=== PATIENT | female | born 1945 | race Caucasian/White ===

== ENCOUNTER 2020-04-18 08:13 | Outpatient (CLI) | payer MEDICARE, MEDICAID, SELFPAY ==
--- NOTE | 2020-04-18 08:27 | NMCV_ITS ---
NM blayne perf SPECT r/s* [id number] Maria Isabel Ho Age: 75 Gender: F : 1945 Exam Date: 04/18/2020 09:25 Ordering Phys: Pedro Venegas PA-C XX Technologist: ROMEO Morse Exam Location: [facility] Indications: PVD, CAD STRESS TEST Please see separate stress test report in [facility] for full findings IMAGE PROTOCOL Rest/Stress 1 Lexiscan Day Radiopharmaceutical Dose (mCi) Administration Site Administered by Rest: Tc-99m 10.8 IV ROMEO Murillo Sestamibi Stress:Tc-99m 32.9 IV ROMEO Morse Sestamiheather Rest: 18-Apr-2020 60 Discovery 630 Stress: 18-Apr-2020 30 Discovery 630 0.4mg Lexiscan. Images obtained in supine and prone position. SPECT RESULTS Technical Quality: Excellent Raw Data Analysis: Normal Image Corrections: No attenuation or motion correction applied Summed Stress Score: 0 Summed Rest Score: 0 Summed Difference Score: 0 PERFUSION FINDINGS SPECT images demonstrate homogeneous tracer distribution throughout the myocardium. FUNCTIONAL RESULTS (calculated via Gated SPECT) Stress Image LV EF (%): 89 Stress EDV (mL):38 TID: 0.82 Stress ESV (mL):4 FUNCTIONAL FINDINGS: The left ventricle is normal in size. Transient Ischemia Dilatation of 0.82. The left ventricular ejection fraction is hyperdynamic with a value of 89%. This is overestimated due to small left ventricle cavity size. There is hyperdynamic left ventricular wall thickening. No regional wall motion abnormality. IMPRESSIONS 1. Myocardial perfusion imaging is normal. 2. Overall left ventricular systolic function is normal without regional wall motion abnormalities. 3. The left ventricular ejection fraction is hyperdynamic with a value of 89%. 4. This study suggests a low likelihood of angiographically significant coronary artery disease. 5. No prior similar studies to compare. Raven Pacheco MD (Electronically Signed) Final Date: 18 April 2020 18:19 S
--- NOTE | 2020-04-18 08:27 | ECG_ITS ---
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 Interpretive Statements NAME OF STUDY: LEXISCAN SESTAMIBI STRESS TEST INDICATION: Chest Pain, r/o CAD, PAD PROCEDURE: At the baseline, the blood pressure was 228/90 mmHg, oxygen saturation 97% with a heart rate of 68 bpm. The electrocardiogram showed normal sinus rhythm, normal axis with nonspecific ST depression. The Lexiscan was infused over a period of 20 seconds. A total of 0.4 milligrams of Lexiscan was infused. The stress phase was continued for a total of 5 minutes. Heart rate at the end of the stress phase was 87 bpm, oxygen saturation 97% with a blood pressure of 217/93 mmHg. The EKG at the peak infusion revealed no significant ST-T wave changes. The study was terminated due to protocol completion. Sestamibi was injected 20 seconds after the Lexiscan infusion. Blood pressure at the end of the recovery phase was 225/102 mmHg, oxygen saturation 96% with a heart rate of 76 beats per minute. CONCLUSION: 1. No significant EKG changes with the LexiScan infusion. 2. No LexiScan induced chest pain or cardiac arrhythmia. 3. Baseline hypertension with normal blood pressure and heart rate response. 4. Sestamibi/sestamibi perfusion scan pending; see separate report. Electronically Signed On 04-18-2020 18:22:22 DRAGLINE OPERATOR by Raven Pacheco M.D. [id number]
[2020-04-18 08:39] VITALS: BMI 21.9
[2020-04-18] MEDS: ondansetron 2 mg/ML SDV 2 mL 4 MG IVP (10:23)
[2020-04-18 10:29] VITALS: BP 225/102; PULSE 77
== END 2020-04-18 08:14 | disposition home or self-care (01) ==
PROVIDERS: PCP Physician Assistant Medical; Visit Provider Physician Assistant Medical
DX: R07.9 Chest pain, unspecified (principal); I73.9 Peripheral vascular disease, unspecified
CPT/HCPCS: 78452; 93017; A9500; J2405

== ENCOUNTER 2020-05-06 15:11 | Emergency (ER) | payer MEDICARE, MEDICAID, SELFPAY ==
[2020-05-06] VITALS (14 sets, daily range): BP systolic 151–202; BP diastolic 76–100; PULSE 66–80; RESP 14–20; TEMP 36.4; O2SAT 93–97; BMI 22.3
--- NOTE | 2020-05-06 15:33 | XRR_ITS ---
PROCEDURE INFORMATION: Exam: XR Chest, 1 View Exam date and time: 05/06/2020 4:13 PM Age: 75 years old Clinical indication: Cough and dyspnea; Smoker's cough; Additional info: Dyspnea/cough TECHNIQUE: Imaging protocol: XR of the chest Views: 1 view. COMPARISON: No relevant prior studies available. FINDINGS: Lungs: Unremarkable. No consolidation. Pleural space: Unremarkable. No pleural effusion. No pneumothorax. Heart/Mediastinum: Unremarkable. No cardiomegaly. Bones/joints: Unremarkable. XR/XR chest 1V portable [id number] IMPRESSION: No acute findings.
--- NOTE | 2020-05-06 15:33 | XRR_ITS ---
PROCEDURE INFORMATION: Exam: XR Left Knee Exam date and time: 05/06/2020 4:13 PM Age: 75 years old Clinical indication: Pain; Knee; Left TECHNIQUE: Imaging protocol: XR Left knee. Views: 3 views. COMPARISON: No relevant prior studies available. FINDINGS: Bones/joints: There is osteopenia. No periosteal reaction. No osteomyelitis. No acute fracture or dislocation. No bony destructive changes. Soft tissues: No foreign body. Other findings: No gas in the soft tissues. XR/XR knee LT 3V* [id number] IMPRESSION: No acute bony abnormality.
--- NOTE | 2020-05-06 15:33 | CTR_ITS ---
PROCEDURE INFORMATION: Exam: CT Cervical Spine Without Contrast Exam date and time: 05/06/2020 4:13 PM Age: 75 years old Clinical indication: Injury or trauma; Fall; Blunt trauma; Additional info: Fall, head injury TECHNIQUE: Imaging protocol: Computed tomography images of the cervical spine without contrast. Radiation optimization: All CT scans at this facility use at least one of these dose optimization techniques: automated exposure control; mA and/or kV adjustment per patient size (includes targeted exams where dose is matched to clinical indication); or iterative reconstruction. COMPARISON: No relevant prior studies available. RADIATION DOSE METRICS: Total DLP (mGy-cm): 376.48 FINDINGS: Vertebrae: No acute fracture. Normal alignment. Degenerative change is identified in the spine. There is disc space narrowing and osteophyte formation especially at C5/6. Soft tissues: Unremarkable. Lungs: Lung apices are normal. CT/CT cervical spin wo con* [id number] IMPRESSION: There is no evidence for fracture or facet dislocation. Radiation Dose CTDIVOL = (mGy): DLP = 376.48 (mGy-cm)
--- NOTE | 2020-05-06 15:33 | CTR_ITS ---
PROCEDURE INFORMATION: Exam: CT Head Without Contrast Exam date and time: 05/06/2020 4:13 PM Age: 75 years old Clinical indication: Injury or trauma; Fall; Blunt trauma (contusions or hematomas); Additional info: Closed head injury TECHNIQUE: Imaging protocol: Computed tomography of the head without contrast. Radiation optimization: All CT scans at this facility use at least one of these dose optimization techniques: automated exposure control; mA and/or kV adjustment per patient size (includes targeted exams where dose is matched to clinical indication); or iterative reconstruction. COMPARISON: No relevant prior studies available. RADIATION DOSE METRICS: Total DLP (mGy-cm): 690.91 FINDINGS: Brain: Moderate white matter disease and volume loss are identified. There is no acute infarct or edema. No hemorrhage. Cerebral ventricles: No ventriculomegaly. Bones/joints: Unremarkable. No acute fracture. Paranasal sinuses: Visualized sinuses are unremarkable. No fluid levels. Mastoid air cells: Visualized mastoid air cells are well aerated. Soft tissues: Unremarkable. CT/CT head wo con* [id number] IMPRESSION: There are no acute concerning abnormalities. Radiation Dose CTDIVOL = (mGy): DLP = 690.91 (mGy-cm)
--- NOTE | 2020-05-06 15:45 | XRR_ITS ---
PROCEDURE INFORMATION: Exam: XR Nasal Bones, Minimum of 3 Views, Complete Exam date and time: 05/06/2020 4:13 PM Age: 75 years old Clinical indication: Injury or trauma; Fall; Blunt trauma (contusions or hematomas); Nose; Additional info: Fall/ecchymosis TECHNIQUE: Imaging protocol: XR of the nasal bones, minimum of 3 views. Complete exam. COMPARISON: No relevant prior studies available. FINDINGS: Sinuses: Well aerated. No opacification. Bones/joints: There is a comminuted nasal fracture. Soft tissues: Unremarkable. XR/XR nasal bones min 3V [id number] IMPRESSION: There is a comminuted nasal fracture. If there is desire for further evaluation, a CT scan could be performed.
--- NOTE | 2020-05-06 15:45 | ECG_ITS ---
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 Measurements Intervals [place] Rate: 67 P: 53 HI: 149 QRS: 46 QRSD: 72 T: 119 QT: 388 QTc: 412 Interpretive Statements SINUS RHYTHM ST DEVIATION AND MODERATE T-WAVE ABNORMALITY, CONSIDER LATERAL ISCHEMIA [-0.1+ mV T WAVE IN I/aVL/V5/V6] No previous ECG available for comparison Electronically Signed On 05-07-2020 9:18:11 APPRAISER by Gris Hughes M.D. [id number]
[2020-05-06 15:54] LABS: Basophils % 0.4 %; Eosinophils # 0.1 10^3/uL (0.0-0.8); Eosinophils % 1.6 %; Hematocrit 46.2 % (37.0-47.0); Lymphocytes # 0.7 10^3/uL (0.8-4.8); Lymphocytes % 8.6 %; Mean Corpuscular HGB Conc 32.5 g/dL (30.0-36.0); Mean Corpuscular Hemoglobin 30.2 pg (28.0-34.0); Mean Corpuscular Volume 93.1 fL (81-99); Mean Platelet Volume 11.8 fL (7.4-10.4); Monocytes # 0.5 10^3/uL (0.2-0.9); Monocytes % 6.3 %; Neutrophils % 82.6 %; Nucleated Red Blood Cells % 0 %; Platelet Count 203 10^3/cmm (130-400); Red Blood Count 4.96 10^6/uL (4.1-5.3); Red Cell Distribution Width 13.9 % (12.1-15.1); White Blood Count 7.9 10^3/uL (4.0-10.0)
[2020-05-06 16:00] LABS: Ketone (Acetest) Serum Negative (Negative)
[2020-05-06 16:09] LABS: Alanine Aminotransferase 13 U/L (0-33); Albumin Level 4.3 g/dL (3.5-5.2); Alkaline Phosphatase 109 IU/L (35-105); Anion Gap 15.3 (5-19); Aspartate Amino Transferase 18 U/L (0-32); Blood Urea Nitrogen 15 mg/dL (8-23); Calcium 9.1 mg/dL (8.5-10.5); Carbon Dioxide 23 mmol/L (22-29); Chloride 99 mmol/L (98-107); Globulin 3.4 g/dL (1.3-4.6); Glucose 113 mg/dL (65-115); Lipase 11 U/L (13-60); Osmolality Calculated 276 mOsm/kg (285-295); Potassium 5.3 mmol/L (3.5-5.1); Sodium 132 mmol/L (136-145); Total Bilirubin 0.4 mg/dL (0.15-1.2); Total Protein 7.7 g/dL (6.6-8.7)
--- NOTE | 2020-05-06 16:13 | W.ED.SYNCOPE ---
Documented by User: Adonis Harrison DO 05/06/20 18:29 HPI - Syncope General: Chief Complaint: Syncope Stated Complaint: FALL, L LEG INJURY Time Seen by Provider: 05/06/20 15:29 History of Present Illness: HPI narrative: 75-year-old female presents to the emergency room after a fall. Her daughter is with her. She states she has been falling quite a bit and actually. She is on anticoagulants. Although they cannot give me the name of the medicine that the Neurontin. She has frequent falls this been going on for a number of years. Today she was making her bed to sit upright and turned and then surgically had a syncopal episode passed out she hit her face she has some bruising and abrasions about the bridge of the nose bilateral ecchymosis on the lower eyelids. She denies any chest pain she is moderately confused now. No abdominal pain no recent fever sweats chills or flulike symptoms MD complaint: loss of consciousness and collapsed Onset (ago): hour(s) Prodromal symptoms: none Witnessed: Yes - by Bystander Associated symptoms: Reports headache(s), lightheadedness, nausea, vertigo and weakness; Deny abdominal pain, chest pain, fever(s) or short of breath History: previous syncopal episode Treatments prior to arrival: none Review of Systems Const: Denies: fever(s), chills, body aches, change in appetite, fatigue or malaise ENMT: Denies: throat pain, ear or mastoid pain, nasal discharge or nasal congestion Card: Reports: lightheadedness; Denies: chest pain Resp: Denies: dyspnea, productive cough or non-productive cough GI: Reports: nausea; Denies: abdominal pain : Denies: flank pain, difficulty voiding, dysuria, urinary frequency or urinary urgency Skin/Breast: Denies: rash or pruritus Neuro: Reports: headache(s) and vertigo Physical Exam Const: COMMON NORMALS: no acute distress GENERAL APPEARANCE: cooperative and comfortable ORIENTATION/CONSCIOUSNESS: Yes awake, Yes oriented to person, Yes oriented to place and Yes oriented to time HENMT: COMMON NORMALS: normocephalic, atraumatic and hearing grossly normal bilaterally HEAD & SCALP: normocephalic and atraumatic Eye: COMMON NORMALS: Equal, round and reactive pupils present, EOMs intact bilaterally, conjunctivae normal and no scleral icterus CONJUNCTIVA: Yes conjunctivae normal PUPIL: Yes Equal, round and reactive pupils present Neck/C-Spine: COMMON NORMALS: no JVD Resp: COMMON NORMALS: normal respiratory effort, No retractions, No use of accessory muscles and clear to auscultation bilaterally AUSCULTATION: clear to auscultation bilaterally Cardio: COMMON NORMALS: no JVD, regular rate, regular rhythm and No murmurs present (Cardio) RATE: regular rate RHYTHM: regular rhythm GI: COMMON NORMALS: Soft to palpation and No hepatosplenomegaly present AUSCULTATION: Yes normoactive bowel sounds PALPATION: Yes Soft to palpation, No Tenderness to palpation present (GI), No Guarding due to palpation present (GI) and Yes No hepatosplenomegaly present Extremity: COMMON NORMALS: normal to inspection, capillary refill normal, no clubbing, cyanosis or edema, no calf tenderness and no pedal edema Neuro: SENSORIUM/ORIENTATION: Yes oriented to person, Yes oriented to place and Yes oriented to time Skin: COMMON NORMALS: no rashes or lesions noted GENERAL SKIN EXAM: no rashes or lesions noted Course Vital Signs: Vital signs: Vital Signs Temperature 97.6 F 05/06/20 15:20 Pulse Rate 67 05/06/20 21:11 Respiratory Rate 18 05/06/20 21:11 Blood Pressure 202/90 05/06/20 21:11 Pulse Oximetry 97 05/06/20 21:11 MDM - Syncope MDM Narrative: Medical decision making narrative: Care turned over to Dr. Whitehead at change of shift. Patient has some ST depression in V45 and 6-second troponin is pending his notes for final diagnosis and disposition Lab Data: Labs: Lab Results 05/06/20 05/06/20 05/06/20 Range/Units 15:37 15:37 15:37 WBC 7.9 (4.0-10.0) 10^3/ uL RBC 4.96 (4.1-5.3) 10^6/u L Hgb 15.0 (11.5-15.3) g/dL Hct 46.2 (37.0-47.0) % MCV 93.1 (81-99) fL MCH 30.2 (28.0-34.0) pg MCHC 32.5 (30.0-36.0) g/dL RDW 13.9 (12.1-15.1) % Plt Count 203 (130-400) 10^3/c mm MPV 11.8 H (7.4-10.4) fL Neut % (Auto) 82.6 % Lymph % (Auto) 8.6 % [place] % (Auto) 6.3 % Eos % (Auto) 1.6 % Baso % (Auto) 0.4 % Neut # (Auto) 6.50 (1.8-7.7) 10^3/u L Lymph # (Auto) 0.7 L (0.8-4.8) 10^3/u L [place] # (Auto) 0.5 (0.2-0.9) 10^3/u L Eos # (Auto) 0.1 (0.0-0.8) 10^3/u L Baso # (Auto) 0.0 (0.0-0.1) 10^3/u L Nucleated RBC % (a uto) 0 % Nucleated RBCs # 0.0 /100WBC PT (12.1-14.9) SECO NDS INR (0.8-1.2) APTT (23.9-36.7) SECO NDS Sodium 132 L (136-145) mmol/L Potassium 5.3 H (3.5-5.1) mmol/L Chloride 99 (98-107) mmol/L Carbon Dioxide 23 (22-29) mmol/L Anion Gap 15.3 (5-19) BUN 15 (8-23) mg/dL Creatinine 1.5 H (0.5-0.9) mg/dL GFR Calculation Not Reportable Glucose 113 (65-115) mg/dL Calculated Osmolal ity 276 L (285-295) mOsm/k g Calcium 9.1 (8.5-10.5) mg/dL Total Bilirubin 0.4 (0.15-1.2) mg/dL AST 18 (0-32) U/L ALT 13 (0-33) U/L Alkaline Phosphata se 109 H (35-105) IU/L Troponin T Baselin e (0-10) ng/L Troponin T 120 Min wainwright (0-10) ng/L Delta Troponin T (0-10) ABS# Total Protein 7.7 (6.6-8.7) g/dL Albumin 4.3 (3.5-5.2) g/dL Globulin 3.4 (1.3-4.6) g/dL Lipase 11 L (13-60) U/L Urine Color (Yellow) Urine Appearance (CLEAR) Urine pH (5-7) Ur Specific Gravit y (1.005-1.030) Urine Protein (Negative) Urine Glucose (UA) (Normal) Urine Ketones (Negative) Urine Blood (Negative) Urine Nitrate (Negative) Urine Bilirubin (Negative) Urine Urobilinogen (Negative) mg/dL Ur Leukocyte Tarah ase (Negative) Urine RBC (0-2) /hpf Urine WBC (0-5) /hpf Ur Squamous Epith Cells (0-5) /hpf Amorphous Sediment Urine Bacteria (NONE) /hpf Hyaline Casts /lpf Urine Mucus /hpf Serum Ketones Negative (Negative) 05/06/20 05/06/20 05/06/20 Range/Units 15:37 15:37 15:51 WBC (4.0-10.0) 10^3/ uL RBC (4.1-5.3) 10^6/u L Hgb (11.5-15.3) g/dL Hct (37.0-47.0) % MCV (81-99) fL MCH (28.0-34.0) pg MCHC (30.0-36.0) g/dL RDW (12.1-15.1) % Plt Count (130-400) 10^3/c mm MPV (7.4-10.4) fL Neut % (Auto) % Lymph % (Auto) % [place] % (Auto) % Eos % (Auto) % Baso % (Auto) % Neut # (Auto) (1.8-7.7) 10^3/u L Lymph # (Auto) (0.8-4.8) 10^3/u L [place] # (Auto) (0.2-0.9) 10^3/u L Eos # (Auto) (0.0-0.8) 10^3/u L Baso # (Auto) (0.0-0.1) 10^3/u L Nucleated RBC % (a uto) % Nucleated RBCs # /100WBC PT 13.20 (12.1-14.9) SECO NDS INR 0.98 (0.8-1.2) APTT 26.5 (23.9-36.7) SECO NDS Sodium (136-145) mmol/L Potassium (3.5-5.1) mmol/L Chloride (98-107) mmol/L Carbon Dioxide (22-29) mmol/L Anion Gap (5-19) BUN (8-23) mg/dL Creatinine (0.5-0.9) mg/dL GFR Calculation Glucose (65-115) mg/dL Calculated Osmolal ity (285-295) mOsm/k g Calcium (8.5-10.5) mg/dL Total Bilirubin (0.15-1.2) mg/dL AST (0-32) U/L ALT (0-33) U/L Alkaline Phosphata se (35-105) IU/L Troponin T Baselin e 13 H (0-10) ng/L Troponin T 120 Min wainwright (0-10) ng/L Delta Troponin T (0-10) ABS# Total Protein (6.6-8.7) g/dL Albumin (3.5-5.2) g/dL Globulin (1.3-4.6) g/dL Lipase (13-60) U/L Urine Color Dark yellow (Yellow) Urine Appearance Cloudy (CLEAR) Urine pH 5 (5-7) Ur Specific Gravit y 1.015 (1.005-1.030) Urine Protein Trace (Negative) Urine Glucose (UA) Norm (Normal) Urine Ketones Negative (Negative) Urine Blood Neg (Negative) Urine Nitrate Negative (Negative) Urine Bilirubin 1+ H (Negative) Urine Urobilinogen 1 H (Negative) mg/dL Ur Leukocyte Tarah ase Trace H (Negative) Urine RBC None (0-2) /hpf Urine WBC 5-10 H (0-5) /hpf Ur Squamous Epith Cells 0-4 H (0-5) /hpf Amorphous Sediment Not Reportable Urine Bacteria 1+ H (NONE) /hpf Hyaline Casts 15-25 H /lpf Urine Mucus Trace /hpf Serum Ketones (Negative) 05/06/20 Range/Units 17:57 WBC (4.0-10.0) 10^3/ uL RBC (4.1-5.3) 10^6/u L Hgb (11.5-15.3) g/dL Hct (37.0-47.0) % MCV (81-99) fL MCH (28.0-34.0) pg MCHC (30.0-36.0) g/dL RDW (12.1-15.1) % Plt Count (130-400) 10^3/c mm MPV (7.4-10.4) fL Neut % (Auto) % Lymph % (Auto) % [place] % (Auto) % Eos % (Auto) % Baso % (Auto) % Neut # (Auto) (1.8-7.7) 10^3/u L Lymph # (Auto) (0.8-4.8) 10^3/u L [place] # (Auto) (0.2-0.9) 10^3/u L Eos # (Auto) (0.0-0.8) 10^3/u L Baso # (Auto) (0.0-0.1) 10^3/u L Nucleated RBC % (a uto) % Nucleated RBCs # /100WBC PT (12.1-14.9) SECO NDS INR (0.8-1.2) APTT (23.9-36.7) SECO NDS Sodium (136-145) mmol/L Potassium (3.5-5.1) mmol/L Chloride (98-107) mmol/L Carbon Dioxide (22-29) mmol/L Anion Gap (5-19) BUN (8-23) mg/dL Creatinine (0.5-0.9) mg/dL GFR Calculation Glucose (65-115) mg/dL Calculated Osmolal ity (285-295) mOsm/k g Calcium (8.5-10.5) mg/dL Total Bilirubin (0.15-1.2) mg/dL AST (0-32) U/L ALT (0-33) U/L Alkaline Phosphata se (35-105) IU/L Troponin T Baselin e (0-10) ng/L Troponin T 120 Min wainwright 11.11 H (0-10) ng/L Delta Troponin T -1.89 L (0-10) ABS# Total Protein (6.6-8.7) g/dL Albumin (3.5-5.2) g/dL Globulin (1.3-4.6) g/dL Lipase (13-60) U/L Urine Color (Yellow) Urine Appearance (CLEAR) Urine pH (5-7) Ur Specific Gravit y (1.005-1.030) Urine Protein (Negative) Urine Glucose (UA) (Normal) Urine Ketones (Negative) Urine Blood (Negative) Urine Nitrate (Negative) Urine Bilirubin (Negative) Urine Urobilinogen (Negative) mg/dL Ur Leukocyte Tarah ase (Negative) Urine RBC (0-2) /hpf Urine WBC (0-5) /hpf Ur Squamous Epith Cells (0-5) /hpf Amorphous Sediment Urine Bacteria (NONE) /hpf Hyaline Casts /lpf Urine Mucus /hpf Serum Ketones (Negative) Discharge Plan Discharge Patient Disposition: Home Clinical Impression: Syncope Qualifiers: Syncope type: unspecified Qualified Code(s): R55 - Syncope and collapse Condition: Stable Prescriptions: No Action lisinopril 20 mg tablet 20 mg PO DAILY@0900 RF: 0 felodipine 5 mg tablet extended release 24 hr 5 mg PO BID@0900,2300 RF: 0 lovastatin 40 mg tablet 40 mg PO BEDTIME@2330 RF: 0 clopidogrel 75 mg tablet 75 mg PO BEDTIME@2330 RF: 0 Aspir-81 81 mg Tablet,Delayed Release (Dr/Ec) 81 mg PO DAILY@2330 RF: 0 propranolol 40 mg tablet See Rx Instructions .ROUTE .COMPLEX RF: 0 citalopram 20 mg tablet 20 mg PO BEDTIME@2330 RF: 0 amitriptyline 25 mg tablet 25 mg PO BEDTIME@2330 RF: 0 meclizine 25 mg tablet 25 mg PO BEDTIME@2330 RF: 0 buspirone 10 mg tablet 10 mg PO BID PRN (Reason: UNKNOWN) RF: 0 omeprazole 20 mg capsule,delayed release(DR/EC) 20 mg PO DAILY@0900 RF: 0 montelukast 10 mg tablet 10 mg PO BEDTIME@2330 RF: 0 Ventolin HFA 90 mcg/actuation HFA aerosol inhaler See Rx Instructions .ROUTE .COMPLEX RF: 0 oxybutynin chloride 5 mg tablet 5 mg PO BID@0900,2330 RF: 0 Discharge Orders: Discharge ED (Routine); Ordered 05/06/20 Ordered By: Abraham Whitehead Referrals: Pedro Venegas [Primary Care Provider] - 4-7 days Discharge Diet: Advance as tolerated Discharge Activity: Increase activity as tolerated Patient Instructions: Syncope (ED) Activity Restrictions/Additional Instructions: Return for repeated episodes of syncope or passing out, chest discomfort, shortness of breath, any other concerning symptoms. You have been referred for a Holter monitor placement, which will monitor your heart rhythm for several days. You should get a call early next week to come have this placed. Coding Level of Care Code ED Supervisor [employer] for Chg Fwd Exam Comprehensive Documented by User: Abraham Whitehead, 05/06/20 23:14 HPI - Syncope General: Chief Complaint: Syncope Stated Complaint: FALL, L LEG INJURY Time Seen by Provider: 05/06/20 15:29 Course Vital Signs: Vital signs: Vital Signs Temperature 97.6 F 05/06/20 15:20 Pulse Rate 67 05/06/20 21:11 Respiratory Rate 18 05/06/20 21:11 Blood Pressure 202/90 05/06/20 21:11 Pulse Oximetry 97 05/06/20 21:11 MDM - Syncope MDM Narrative: Medical decision making narrative: 75-year-old female checked out to me by Dr. Harrison at shift change. She had a syncopal episode at home. She has a nasal bone fracture she has had some hypertension readings on the monitor. She did not take her lisinopril today. Her actual blood pressure was 154/87. Orthostatics are negative. Her head CT is negative. Cervical spine CT is negative. There are no acute findings on chest x-ray. Her potassium is mildly elevated. Her troponin was 13 originally, and did not elevated 2 hours. She had some mild ST depression laterally that was stable on her 2-hour EKG. She is asymptomatic at this point. This seems to be an ongoing thing. We will set her up for a Holter monitor as an outpatient. She will be allowed discharge at this time. She was told to take her lisinopril when she gets home. Lab Data: Labs: Lab Results 05/06/20 05/06/20 05/06/20 Range/Units 15:37 15:37 15:37 WBC 7.9 (4.0-10.0) 10^3/ uL RBC 4.96 (4.1-5.3) 10^6/u L Hgb 15.0 (11.5-15.3) g/dL Hct 46.2 (37.0-47.0) % MCV 93.1 (81-99) fL MCH 30.2 (28.0-34.0) pg MCHC 32.5 (30.0-36.0) g/dL RDW 13.9 (12.1-15.1) % Plt Count 203 (130-400) 10^3/c mm MPV 11.8 H (7.4-10.4) fL Neut % (Auto) 82.6 % Lymph % (Auto) 8.6 % [place] % (Auto) 6.3 % Eos % (Auto) 1.6 % Baso % (Auto) 0.4 % Neut # (Auto) 6.50 (1.8-7.7) 10^3/u L Lymph # (Auto) 0.7 L (0.8-4.8) 10^3/u L [place] # (Auto) 0.5 (0.2-0.9) 10^3/u L Eos # (Auto) 0.1 (0.0-0.8) 10^3/u L Baso # (Auto) 0.0 (0.0-0.1) 10^3/u L Nucleated RBC % (a uto) 0 % Nucleated RBCs # 0.0 /100WBC PT (12.1-14.9) SECO NDS INR (0.8-1.2) APTT (23.9-36.7) SECO NDS Sodium 132 L (136-145) mmol/L Potassium 5.3 H (3.5-5.1) mmol/L Chloride 99 (98-107) mmol/L Carbon Dioxide 23 (22-29) mmol/L Anion Gap 15.3 (5-19) BUN 15 (8-23) mg/dL Creatinine 1.5 H (0.5-0.9) mg/dL GFR Calculation Not Reportable Glucose 113 (65-115) mg/dL Calculated Osmolal ity 276 L (285-295) mOsm/k g Calcium 9.1 (8.5-10.5) mg/dL Total Bilirubin 0.4 (0.15-1.2) mg/dL AST 18 (0-32) U/L ALT 13 (0-33) U/L Alkaline Phosphata se 109 H (35-105) IU/L Troponin T Baselin e (0-10) ng/L Troponin T 120 Min wainwright (0-10) ng/L Delta Troponin T (0-10) ABS# Total Protein 7.7 (6.6-8.7) g/dL Albumin 4.3 (3.5-5.2) g/dL Globulin 3.4 (1.3-4.6) g/dL Lipase 11 L (13-60) U/L Urine Color (Yellow) Urine Appearance (CLEAR) Urine pH (5-7) Ur Specific Gravit y (1.005-1.030) Urine Protein (Negative) Urine Glucose (UA) (Normal) Urine Ketones (Negative) Urine Blood (Negative) Urine Nitrate (Negative) Urine Bilirubin (Negative) Urine Urobilinogen (Negative) mg/dL Ur Leukocyte Tarah ase (Negative) Urine RBC (0-2) /hpf Urine WBC (0-5) /hpf Ur Squamous Epith Cells (0-5) /hpf Amorphous Sediment Urine Bacteria (NONE) /hpf Hyaline Casts /lpf Urine Mucus /hpf Serum Ketones Negative (Negative) 05/06/20 05/06/20 05/06/20 Range/Units 15:37 15:37 15:51 WBC (4.0-10.0) 10^3/ uL RBC (4.1-5.3) 10^6/u L Hgb (11.5-15.3) g/dL Hct (37.0-47.0) % MCV (81-99) fL MCH (28.0-34.0) pg MCHC (30.0-36.0) g/dL RDW (12.1-15.1) % Plt Count (130-400) 10^3/c mm MPV (7.4-10.4) fL Neut % (Auto) % Lymph % (Auto) % [place] % (Auto) % Eos % (Auto) % Baso % (Auto) % Neut # (Auto) (1.8-7.7) 10^3/u L Lymph # (Auto) (0.8-4.8) 10^3/u L [place] # (Auto) (0.2-0.9) 10^3/u L Eos # (Auto) (0.0-0.8) 10^3/u L Baso # (Auto) (0.0-0.1) 10^3/u L Nucleated RBC % (a uto) % Nucleated RBCs # /100WBC PT 13.20 (12.1-14.9) SECO NDS INR 0.98 (0.8-1.2) APTT 26.5 (23.9-36.7) SECO NDS Sodium (136-145) mmol/L Potassium (3.5-5.1) mmol/L Chloride (98-107) mmol/L Carbon Dioxide (22-29) mmol/L Anion Gap (5-19) BUN (8-23) mg/dL Creatinine (0.5-0.9) mg/dL GFR Calculation Glucose (65-115) mg/dL Calculated Osmolal ity (285-295) mOsm/k g Calcium (8.5-10.5) mg/dL Total Bilirubin (0.15-1.2) mg/dL AST (0-32) U/L ALT (0-33) U/L Alkaline Phosphata se (35-105) IU/L Troponin T Baselin e 13 H (0-10) ng/L Troponin T 120 Min wainwright (0-10) ng/L Delta Troponin T (0-10) ABS# Total Protein (6.6-8.7) g/dL Albumin (3.5-5.2) g/dL Globulin (1.3-4.6) g/dL Lipase (13-60) U/L Urine Color Dark yellow (Yellow) Urine Appearance Cloudy (CLEAR) Urine pH 5 (5-7) Ur Specific Gravit y 1.015 (1.005-1.030) Urine Protein Trace (Negative) Urine Glucose (UA) Norm (Normal) Urine Ketones Negative (Negative) Urine Blood Neg (Negative) Urine Nitrate Negative (Negative) Urine Bilirubin 1+ H (Negative) Urine Urobilinogen 1 H (Negative) mg/dL Ur Leukocyte Tarah ase Trace H (Negative) Urine RBC None (0-2) /hpf Urine WBC 5-10 H (0-5) /hpf Ur Squamous Epith Cells 0-4 H (0-5) /hpf Amorphous Sediment Not Reportable Urine Bacteria 1+ H (NONE) /hpf Hyaline Casts 15-25 H /lpf Urine Mucus Trace /hpf Serum Ketones (Negative) 05/06/20 Range/Units 17:57 WBC (4.0-10.0) 10^3/ uL RBC (4.1-5.3) 10^6/u L Hgb (11.5-15.3) g/dL Hct (37.0-47.0) % MCV (81-99) fL MCH (28.0-34.0) pg MCHC (30.0-36.0) g/dL RDW (12.1-15.1) % Plt Count (130-400) 10^3/c mm MPV (7.4-10.4) fL Neut % (Auto) % Lymph % (Auto) % [place] % (Auto) % Eos % (Auto) % Baso % (Auto) % Neut # (Auto) (1.8-7.7) 10^3/u L Lymph # (Auto) (0.8-4.8) 10^3/u L [place] # (Auto) (0.2-0.9) 10^3/u L Eos # (Auto) (0.0-0.8) 10^3/u L Baso # (Auto) (0.0-0.1) 10^3/u L Nucleated RBC % (a uto) % Nucleated RBCs # /100WBC PT (12.1-14.9) SECO NDS INR (0.8-1.2) APTT (23.9-36.7) SECO NDS Sodium (136-145) mmol/L Potassium (3.5-5.1) mmol/L Chloride (98-107) mmol/L Carbon Dioxide (22-29) mmol/L Anion Gap (5-19) BUN (8-23) mg/dL Creatinine (0.5-0.9) mg/dL GFR Calculation Glucose (65-115) mg/dL Calculated Osmolal ity (285-295) mOsm/k g Calcium (8.5-10.5) mg/dL Total Bilirubin (0.15-1.2) mg/dL AST (0-32) U/L ALT (0-33) U/L Alkaline Phosphata se (35-105) IU/L Troponin T Baselin e (0-10) ng/L Troponin T 120 Min wainwright 11.11 H (0-10) ng/L Delta Troponin T -1.89 L (0-10) ABS# Total Protein (6.6-8.7) g/dL Albumin (3.5-5.2) g/dL Globulin (1.3-4.6) g/dL Lipase (13-60) U/L Urine Color (Yellow) Urine Appearance (CLEAR) Urine pH (5-7) Ur Specific Gravit y (1.005-1.030) Urine Protein (Negative) Urine Glucose (UA) (Normal) Urine Ketones (Negative) Urine Blood (Negative) Urine Nitrate (Negative) Urine Bilirubin (Negative) Urine Urobilinogen (Negative) mg/dL Ur Leukocyte Tarah ase (Negative) Urine RBC (0-2) /hpf Urine WBC (0-5) /hpf Ur Squamous Epith Cells (0-5) /hpf Amorphous Sediment Urine Bacteria (NONE) /hpf Hyaline Casts /lpf Urine Mucus /hpf Serum Ketones (Negative) Discharge Plan Discharge Patient Disposition: Home Clinical Impression: Syncope Qualifiers: Syncope type: unspecified Qualified Code(s): R55 - Syncope and collapse Condition: Stable Prescriptions: No Action lisinopril 20 mg tablet 20 mg PO DAILY@0900 RF: 0 felodipine 5 mg tablet extended release 24 hr 5 mg PO BID@0900,2300 RF: 0 lovastatin 40 mg tablet 40 mg PO BEDTIME@2329 RF: 0 clopidogrel 75 mg tablet 75 mg PO BEDTIME@2329 RF: 0 Aspir-81 81 mg Tablet,Delayed Release (Dr/Ec) 81 mg PO DAILY@2329 RF: 0 propranolol 40 mg tablet See Rx Instructions .ROUTE .COMPLEX RF: 0 citalopram 20 mg tablet 20 mg PO BEDTIME@2329 RF: 0 amitriptyline 25 mg tablet 25 mg PO BEDTIME@2329 RF: 0 meclizine 25 mg tablet 25 mg PO BEDTIME@2329 RF: 0 buspirone 10 mg tablet 10 mg PO BID PRN (Reason: UNKNOWN) RF: 0 omeprazole 20 mg capsule,delayed release(DR/EC) 20 mg PO DAILY@0900 RF: 0 montelukast 10 mg tablet 10 mg PO BEDTIME@2330 RF: 0 Ventolin HFA 90 mcg/actuation HFA aerosol inhaler See Rx Instructions .ROUTE .COMPLEX RF: 0 oxybutynin chloride 5 mg tablet 5 mg PO BID@0900,2330 RF: 0 Discharge Orders: Discharge ED (Routine); Ordered 05/06/20 Ordered By: Abraham Whitehead Referrals: Pedro Venegas [Primary Care Provider] - 4-7 days Discharge Diet: Advance as tolerated Discharge Activity: Increase activity as tolerated Patient Instructions: Syncope (ED) Activity Restrictions/Additional Instructions: Return for repeated episodes of syncope or passing out, chest discomfort, shortness of breath, any other concerning symptoms. You have been referred for a Holter monitor placement, which will monitor your heart rhythm for several days. You should get a call early next week to come have this placed. Coding Level of Care Code ED Supervisor [employer] for [employer] Exam Comprehensive
[2020-05-06 16:25] LABS: Add Urine Microscopic? YES; Bilirubin Urine 1+ (Negative); Blood Urine Neg (Negative); Glucose Urine UA Norm (Normal); Ketones Urine Negative (Negative); Leukocyte Esterase Urine Trace (Negative); Nitrate Urine Negative (Negative); Protein Urine Trace (Negative); Specific Gravity, Urine 1.015 (1.005-1.030); Urine Appearance Cloudy (CLEAR); Urine Color Dark Yellow (Yellow); Urobilinogen Urine 1 mg/dL (Negative); pH Urine 5 (5-7)
[2020-05-06 16:35] LABS: Troponin(5th) Baseline 13 ng/L (0-10)
[2020-05-06 16:38] LABS: Bacteria Urine 1+ /hpf; Mucus Urine TRACE /hpf; Squamous Epithelial Cell Urine 0-4 /hpf (0-5)
[2020-05-06 16:39] LABS: Add Urine Culture? No; Hyaline Casts Urine 15-25 /lpf
[2020-05-06 16:53] LABS: INR 0.98 (0.8-1.2)
[2020-05-06] MEDS: sodium chloride 0.9% 500 ML 999 ML IV (16:54)
[2020-05-06 17:08] LABS: Partial Thromboplastin Time 26.5 SECONDS (23.9-36.7)
[2020-05-06] MEDS: cefTRIAXone 1,000 MG in lidocaine 1% 2.1 ML 1 MG IM (17:29)
--- NOTE | 2020-05-06 17:45 | ECG_ITS ---
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 Measurements Intervals [place] Rate: 71 P: 78 WA: 165 QRS: 55 QRSD: 73 T: 114 QT: 373 QTc: 407 Interpretive Statements SINUS RHYTHM POSSIBLE RIGHT ATRIAL ENLARGEMENT [0.25mV P WAVE] ST DEVIATION AND MODERATE T-WAVE ABNORMALITY, CONSIDER LATERAL ISCHEMIA [-0.1+ mV T WAVE IN I/aVL/V5/V6] Compared to ECG 05/06/2020 15:40:02 No significant changes Electronically Signed On 05-07-2020 20:29:42 PAPER CARRIER by Gris Hughes M.D. [id number]
[2020-05-06 18:25] LABS: Troponin 5 2HR 11.11 ng/L (0-10)
[2020-05-06 18:29] LABS: Troponin 5 2HR Delta -1.89 ABS# (0-10)
--- NOTE | 2020-05-06 19:48 | PC.NURSE ---
daughter at bedside.
--- NOTE | 2020-05-06 20:40 | PC.NURSE ---
pt eating, waiting for d/c paperwork
== END 2020-05-06 21:18 | disposition home or self-care (01) ==
PROVIDERS: Family Medicine; Emergency Provider Emergency Medicine; PCP Physician Assistant Medical
DX: R55 Syncope and collapse (principal); Z79.02 Long term (current) use of antithrombotics/antiplatelets; Z79.82 Long term (current) use of aspirin
CPT/HCPCS: 12345; 70160; 70450; 71045; 72125; 73562; 80053; 81001; 82009; 83690; 84484; 85025; 85610; 85730; 93005; 93226; 96374; 99282; 99284; J0696; J7040

== ENCOUNTER 2020-07-24 07:05 | Outpatient (CLI) | payer MEDICARE, MEDICAID, SELFPAY ==
--- NOTE | 2020-07-24 07:15 | USCV_ITS ---
Maria Isabel Ho Age: 75 Gender: F : 1945 Exam Date: 07/24/2020 08:15 Ordering Phys: Gris Hughes MD ([email or web address]) Technologist: Jose Mckee [place] [facility] [place]: TIA Risk Factors: Smoker Previous Vascular Surgery: None Right Brachial BP: / Left Brachial BP: / Right Left Velocity (cm/s) Spectral Plaque Velocity (cm/s) Spectral Plaque Syst/Diast Broadening Syst/Diast Broadening 44.00/ 9.20 Prox CCA 33.20 / 9.50 42.10/ 6.50 Mid CCA 44.00 / 9.50 55.90/ 12.40 Hetro Distal CCA 40.00 / 7.40 Hetro 82.70/ 18.20 Hetro Prox ICA 53.50 / 10.80 Hetro 89.40/ 12.50 Mid ICA 63.70 / 18.30 Hetro 73.00/ 21.00 Distal ICA 64.00 / 14.00 60.50 ECA 86.70 1.40 ICA/CCA 1.45 Antegrade Vertebral Antegrade 53.50/ 5.40 cm/s 24.50/ 3.70 cm/s Tri Subclavian Tri 72.50 52.00 FINDINGS Moderate dense plaques bilaterally at the bifurcations and proximal internal carotid arteries. Intimal thickening in the common carotid arteries bilaterally. Antegrade flow in the vertebral arteries bilaterally. Normal Doppler flow velocities in the external carotid arteries bilaterally. CONCLUSIONS Moderate dense plaques bilaterally at the bifurcations and proximal internal carotid arteries with the Doppler velocities, suggesting less than 50% stenosis. No similar previous studies are available for comparison Dr Gris Hughes MD [facility] (Electronically Signed) Final Date: 25 July 2020 00:27 S
--- NOTE | 2020-07-24 08:00 | USCV_ITS ---
Maria Isabel Ho Age: 75 Gender: F : 1945 Exam Date: 07/24/2020 08:01 Ordering Phys: Gris Hughes MD ([email or web address]) Technologist: Jose Mckee Exam Location: [facility] [place] Indication: TIA BP: 125 / 70 HR: 59 Rhythm: Sinus Technical Quality: Fair MEASUREMENTS (Male / Female) Normal Values 2D ECHO LV Diastolic Diameter PLAX 2.7 cm 4.2 - 5.9 / 3.9 - 5.3 cm LV Systolic Diameter PLAX 2.1 cm IVS Diastolic Thickness 1.0 cm 0.6 - 1.0 / 0.6 - 0.9 cm IVS Systolic Thickness 1.1 cm LVPW Diastolic Thickness 0.9 cm 0.6 - 1.0 / 0.6 - 0.9 cm LVPW Systolic Thickness 1.2 cm LVOT Diameter 1.9 cm LV Ejection Fraction 2D Teich 22.4 % LV Ejection Fraction MOD 2C 62.3 % LV Ejection Fraction 2C AL 61.3 % LA Diameter 3.3 cm LA Width 3.1 cm LA Height 3.4 cm RA Width 2.6 cm RA Height 3.2 cm M-MODE LV Diastolic Diameter MM 4.3 cm 4.2 - 5.9 / 3.9 - 5.3 cm LV Systolic Diameter MM 2.4 cm LV Ejection Fraction MM Teich 75.8 % IVS Diastolic Thickness MM 0.9 cm 0.6 - 1.0 / 0.6 - 0.9 cm IVS Systolic Thickness MM 1.5 cm LVPW Diastolic Thickness MM 1.1 cm 0.6 - 1.0 / 0.6 - 0.9 cm LVPW Systolic Thickness MM 1.8 cm RV Diastolic Diameter MM 1.7 cm Aortic Annulus Diameter 2.4 cm LA Ao Ratio MM 1.6 MV E Point Septal Separation 2.6 cm DOPPLER AV Peak Velocity 120.0 cm/s LVOT Peak Velocity 94.0 cm/s AV Area Cont Eq vti 2.4 cm squared AV Area Cont Eq pk 2.3 cm squared MV Area PHT 5.0 cm squared Mitral E to A Ratio 0.6 MV E' Velocity 38.5 cm/s Mitral E to MV E' Ratio 10.6 Mitral E to LV E' Lateral Ratio 10.1 Mitral E to LV E' Septal Ratio 11.1 TR Peak Velocity 166.3 cm/s TR Peak Gradient 11.1 mmHg TV Peak E Velocity 83.0 cm/s Right Atrial Pressure 3.0 mmHg Pulmonary Artery Systolic Pressu 14.1 mmHg PV Peak Velocity 84.0 cm/s FINDINGS Left Ventricle Normal left ventricular size. LV systolic function is normal with EF of 55-60%. No regional wall motion abnormalities. Grade 1 diastolic dysfunction Right Ventricle The right ventricle is normal in size and function. Right Atrium The right atrium is normal in size. Left Atrium The left atrium is normal in size. Mitral Valve Structurally normal mitral valve without significant stenosis or prolapse. There is no mitral regurgitation. Aortic Valve Structurally normal aortic valve without significant sclerosis or stenosis. There is no aortic regurgitation. Tricuspid Valve Structurally normal tricuspid valve without significant stenosis or regurgitation. Insufficient TR jet to calculate RVSP Pulmonic Valve Structurally normal pulmonic valve without significant stenosis. There is no pulmonic regurgitation. Pericardium Normal pericardium without effusion. Aorta Normal ascending aorta dimension. CONCLUSIONS LV systolic function is normal with EF of 55-60% Grade 1 diastolic dysfunction No significant valvular heart disease No comparison studies are available Chaz Stein MD (Electronically Signed) Final Date: 24 July 2020 19:05 S
== END 2020-07-24 07:06 | disposition home or self-care (01) ==
LOC: US 07:10
PROVIDERS: PCP Physician Assistant Medical; Visit Provider Internal Medicine Cardiovascular Disease
DX: R07.89 Other chest pain (principal); R01.1 Cardiac murmur, unspecified; I77.9 Disorder of arteries and arterioles, unspecified; G45.9 Transient cerebral ischemic attack, unspecified; I51.81 Takotsubo syndrome
CPT/HCPCS: 93306; 93880

== ENCOUNTER 2021-05-02 18:28 | Inpatient (IN) | payer MEDICARE, MEDICAID, SELFPAY ==
[2021-05-02 18:35] VITALS: BP 151/62; PULSE 65; RESP 16; TEMP 37; O2SAT 99; BMI 20.6
--- NOTE | 2021-05-02 18:45 | W.ED.FEMALGU ---
HPI - Female Genitourinary General: Chief complaint: Urogenital-Female Stated complaint: UTI X 1 WEEK Time Seen by Provider: 05/02/21 18:33 History of Present Illness: HPI Narrative: Ms. Ho is a 76-year-old lady with history of tobaccoism, COPD, reported history of recurrent nephrolithiasis, and recent treatment for urinary tract infection who presents to the emergency department due to flank pain. She has a little bit of difficulty deciding when her pain started however it is primarily in her flanks. This is intermittent in nature though present more often than not. At times it is unilateral and sometimes bilateral. She does note mild urinary urgency and difficulty urinating. Additionally over the past few days she has had a few episodes of watery diarrhea and subjective fevers or chills. She denies respiratory symptoms. Overall the course of symptoms has been worsening. Intensity is mild to moderate. She has been compliant with her antibiotics but felt improved. No other specific changes in health, falls, provoking, exacerbating, or relieving factors identified. MD elicited complaint: flank pain and difficulty urinating Pertinent past history: other Onset (ago): week(s) Location of symptoms: low back and flank Severity: mild Female Urogenital Radiation: Non-Radiating Quality of pain: aching Consistency: intermittent and progressively worsening Urinary symptoms: Difficulty Urinating and Dysuria Exacerbating factors: none Relieving factors: none Associated symptoms: Reports fevers/chills, nausea and other Treatment prior to arrival: other Review of Systems General: Reports: 10 or more systems reviewed and unremarkable except in HPI and below GI: Reports: nausea PFS ED PFSH: Medical History Chronic back pain Chronic kidney disease (CKD) COPD (chronic obstructive pulmonary disease) Frequent falls History of hypertension Hx of chest pain Hx of hyperlipidemia Hx of renal calculi Hx of type 2 diabetes mellitus Impaired physical mobility Peripheral vascular disease Postmenopausal Smoker Syncope Family History Grandmother Clotting disorder Brother Cancer Diabetes Stroke Son Chronic kidney disease (CKD) Mother Diabetes Father Stroke Denies family history of CAD (coronary artery disease) Dementia Suicide Anesthesia complication Bleeding disorder Lung disease Social History Smoking and tobacco status: current every day smoker Alcohol intake: never Physical Exam Const: COMMON NORMALS: alert GENERAL APPEARANCE: cooperative and well developed HENMT: COMMON NORMALS: normocephalic and atraumatic HEAD & SCALP: normocephalic and atraumatic THROAT: posterior oropharynx normal Eye: COMMON NORMALS: conjunctivae normal CONJUNCTIVA: Yes conjunctivae normal SCLERA: sclerae normal Neck/C-Spine: COMMON NORMALS: supple GENERAL: Yes trachea midline Resp: COMMON NORMALS: normal respiratory effort EFFORT & INSPECTION: Yes able to speak in complete sentences AUSCULTATION: diminished lung sounds Cardio: COMMON NORMALS: regular rate and regular rhythm RATE: regular rate RHYTHM: regular rhythm GI: PALPATION: Yes Tenderness to palpation present (GI) (Mildly), No Guarding due to palpation present (GI) and No Rigid due to palpation : BLADDER/KIDNEY EXAM: Yes CVA tenderness (Mild bilateral) Back/Pelvis: GENERAL BACK: Yes CVA tenderness (Mild bilateral) Extremity: GENERAL: Yes normal exam except as noted and No edema Neuro: COMMON NORMALS: moves all extremities SENSORIUM/ORIENTATION: Yes alert and No Orientation impaired Psych: COMMON NORMALS: mental status grossly normal and Normal thought process present THOUGHT PROCESS: Normal thought process present Course ED course: - Patient was seen and evaluated by me at bedside - Patient placed on cardiac monitors, IV access obtained - Initial evaluation notable for exam as above, somewhat ill, does have flank tenderness -Symptom treatment ordered - Labs notable for leukocytosis. Metabolic panel with evidence of dehydration as well as worsening renal function. Urinalysis with evidence of urinary tract infection. - Imaging notable for negative chest x-ray. CT with evidence of pyelonephritis - Upon serial reexamination after treatment the patient was similar - Based on patient history, evaluation, labs, and imaging as interpreted the most likely cause of the patient's condition is pyelonephritis failing outpatient therapy though unclear exactly what antibiotic the patient was on - The results of ED evaluation were discussed with the patient including plan for admission due to requirement for level of care not available if discharged to prevent significant worsening/deterioration. -Hospitalist service contacted and agreed admit the patient - Patient was admitted without further deterioration or significant events. Note: Click bubbles or prepopulated [place] in note writing are used for assistance with data collection and billing and are inherently more limited than narrative and other text portions of this note. Please use narrative for additional clinical history and defer to narrative/free test for any case of contradictory information. If information appears in only free text or click bubble it should be considered present or absent as reported. Please contact note commercial insurance underwriter for clarifications of clinical information or contradictory information. MDM is a brief summary, contradictory or erroneous seeming information should be clarified and full note should be reviewed. Vital Signs: Vital signs: Vital Signs Temperature 97.9 F 05/05/21 07:30 Pulse Rate 74 05/05/21 12:27 Respiratory Rate 17 05/05/21 12:27 Blood Pressure 171/76 05/05/21 07:30 Pulse Oximetry 94 05/05/21 12:27 MDM - Female MDM Narrative: Medical decision making narrative: 76-year-old lady with history of recurrent UTIs presenting with worsening symptoms despite oral antibiotic therapy, unclear exactly what medication she was on. Patient found to have pyelonephritis and admitted for further treatment. Medical Records: Attestation: I reviewed the patient's medical records. Lab Data: Attestation: I reviewed the patient's lab results. Labs: Lab Results 05/02/21 05/02/21 05/02/21 17:55 17:55 19:08 WBC 17.3 10^3/uL H 10 ^3/uL (4.0-10.0) RBC 4.42 10^6/uL 10^6 /uL (4.1-5.3) Hgb 13.3 g/dL g/dL (11.5-15.3) Hct 40.1 % % (37.0-47.0) MCV 90.7 fl fl (81-99) MCH 30.1 pg pg (28.0-34.0) MCHC 33.2 g/dL g/dL (30.0-36.0) RDW 13.9 % % (12.1-15.1) Plt Count 215 10^3/cmm 10^3 /cmm (130-400) MPV 12.0 fL H fL (7.4-10.4) Neut % (Auto) 87.7 % % Lymph % (Auto) 4.1 % % [place] % (Auto) 6.9 % % Eos % (Auto) 0.3 % % Baso % (Auto) 0.2 % % Neut # (Auto) 15.18 10^3/uL H 1 0^3/uL (1.8-7.7) Lymph # (Auto) 0.7 10^3/uL L 10^ 3/uL (0.8-4.8) [place] # (Auto) 1.2 10^3/uL H 10^ 3/uL (0.2-0.9) Eos # (Auto) 0.1 10^3/uL 10^3/ uL (0.0-0.8) Baso # (Auto) 0.0 10^3/uL 10^3/ uL (0.0-0.1) Nucleated RBC % (a uto) 0 % % Nucleated RBCs # 0.0 /100WBC /100W BC Sodium 127 mmol/L L mmol /L (136-145) Potassium 5.2 mmol/L H mmol /L (3.5-5.1) Chloride 90 mmol/L L mmol/ L (98-107) Carbon Dioxide 18 mmol/L L mmol/ L (22-29) Anion Gap 24.2 H (5-19) BUN 18 mg/dL mg/dL (8-23) Creatinine 1.7 mg/dL H mg/dL (0.5-0.9) GFR Calculation Not Reportable Glucose 110 mg/dL mg/dL (65-115) Calculated Osmolal ity 267 mOsm/kg L mOs m/kg (285-295) Calcium 8.6 mg/dL mg/dL (8.5-10.5) Total Bilirubin 0.5 mg/dL mg/dL (0.15-1.2) AST 30 U/L U/L (0-32) ALT 14 U/L U/L (0-33) Alkaline Phosphata se 86 IU/L IU/L (35-105) Total Protein 7.5 g/dL g/dL (6.6-8.7) Albumin 3.9 g/dL g/dL (3.5-5.2) Globulin 3.6 g/dL g/dL (1.3-4.6) Lipase 10 U/L L U/L (13-60) Urine Color Yellow (Yellow) Urine Appearance Cloudy (CLEAR) Urine pH 5 (5-7) Ur Specific Gravit y 1.010 (1.005-1.030) Urine Protein 2+ H (Negative) Urine Glucose (UA) Norm (Normal) Urine Ketones 1+ H (Negative) Urine Blood 2+ H (Negative) Urine Nitrate Positive H (Negative) Urine Bilirubin 1+ H (Negative) Urine Urobilinogen Norm mg/dL mg/dL (Negative) Ur Leukocyte [place] ase 2+ H (Negative) Urine RBC 25-40 /hpf H /hpf (0-2) Urine WBC Too numerous to c nt /hpf H /hpf (0-5) Ur Squamous Epith Cells 0-4 /hpf H /hpf (0-5) Amorphous Sediment Not Reportable Urine Bacteria 4+ /hpf H /hpf (NONE) Discharge Plan Discharge Patient Disposition: Placed in Observation Admit Provider: Paula Arita Clinical Impression: Acute pyelonephritis due to bacteria, Acute UTI Coding Level of Care Code ED Speech Pathology Teacher for g Fwd Exam Comprehensive
[2021-05-02 18:53] LABS: Basophils % 0.2 %; Eosinophils # 0.1 10^3/uL (0.0-0.8); Eosinophils % 0.3 %; Hematocrit 40.1 % (37.0-47.0); Hemoglobin 13.3 g/dL (11.5-15.3); Lymphocytes # 0.7 10^3/uL (0.8-4.8); Lymphocytes % 4.1 %; Mean Corpuscular HGB Conc 33.2 g/dL (30.0-36.0); Mean Corpuscular Hemoglobin 30.1 pg (28.0-34.0); Mean Corpuscular Volume 90.7 fl (81-99); Monocytes # 1.2 10^3/uL (0.2-0.9); Monocytes % 6.9 %; Neutrophils # 15.18 10^3/uL (1.8-7.7); Neutrophils % 87.7 %; Nucleated Red Blood Cells % 0 %; Platelet Count 215 10^3/cmm (130-400); Red Blood Count 4.42 10^6/uL (4.1-5.3); Red Cell Distribution Width 13.9 % (12.1-15.1); White Blood Count 17.3 10^3/uL (4.0-10.0)
--- NOTE | 2021-05-02 19:01 | CTR_ITS ---
PROCEDURE INFORMATION: Exam: CT Abdomen And Pelvis Without Contrast Exam date and time: 05/02/2021 7:01 PM Age: 76 years old Clinical indication: Fever and nausea and vomiting; Abdominal pain; Localized; Lower; Prior surgery; Surgery type: Tubal, kidney stone; Additional info: Flank pain, diarrhea, fevers. --left side abd pain, fever, n/v/d TECHNIQUE: Imaging protocol: Computed tomography of the abdomen and pelvis without contrast. Radiation optimization: All CT scans at this facility use at least one of these dose optimization techniques: automated exposure control; mA and/or kV adjustment per patient size (includes targeted exams where dose is matched to clinical indication); or iterative reconstruction. COMPARISON: CR XR chest 1V portable [id number] 05/06/2020 4:22 PM RADIATION DOSE METRICS: Total DLP (mGy-cm): 500.57 FINDINGS: Lungs: Emphysematous changes. Diaphragm: Moderate to large hiatal hernia. Liver: Hepatic dome 16 mm low-density lesion, consider further evaluation with nonemergent dedicated CT of the liver with intravenous contrast. Gallbladder and bile ducts: Cholelithiasis. Pancreas: Normal. No ductal dilation. Spleen: Normal. No splenomegaly. Adrenal glands: Normal. No mass. Kidneys and ureters: Minimal right kidney perinephric edema perhaps reflecting a pyelonephritis in the appropriate clinical setting. Bilateral nonobstructive renal calyceal stones. Left kidney cyst, negative for follow up. Stomach and bowel: Diverticulosis without diverticulitis. Appendix: No evidence of appendicitis. Intraperitoneal space: Unremarkable. No free air. No significant fluid collection. Vasculature: Unremarkable. No abdominal aortic aneurysm. Lymph nodes: Unremarkable. No enlarged lymph nodes. Urinary bladder: Unremarkable as visualized. Reproductive: Calcified uterine fibroids measuring up to 11.9 mm. Bones/joints: Unremarkable. No acute fracture. Soft tissues: Unremarkable. CT/CT kidney stone [id number] IMPRESSION: 1. Minimal right kidney perinephric edema perhaps reflecting a pyelonephritis in the appropriate clinical setting. 2. Emphysematous changes. 3. Moderate to large hiatal hernia. 4. Cholelithiasis. 5. Bilateral nonobstructive renal calyceal stones. 6. Left kidney cyst, negative for follow up. 7. Calcified uterine fibroids measuring up to 11.9 mm. 8. Diverticulosis without diverticulitis. 9. Hepatic dome 16 mm low-density lesion, consider further evaluation with nonemergent dedicated CT of the liver with intravenous contrast.
[2021-05-02 19:16] LABS: Albumin Level 3.9 g/dL (3.5-5.2); Alkaline Phosphatase 86 IU/L (35-105); Blood Urea Nitrogen 18 mg/dL (8-23); Calcium 8.6 mg/dL (8.5-10.5); Carbon Dioxide 18 mmol/L (22-29); Chloride 90 mmol/L (98-107); Globulin 3.6 g/dL (1.3-4.6); Glucose 110 mg/dL (65-115); Lipase 10 U/L (13-60); Osmolality Calculated 267 mOsm/kg (285-295); Sodium 127 mmol/L (136-145); Total Bilirubin 0.5 mg/dL (0.15-1.2); Total Protein 7.5 g/dL (6.6-8.7)
[2021-05-02 19:18] LABS: Alanine Aminotransferase 14 U/L (0-33); Anion Gap 24.2 (5-19); Aspartate Amino Transferase 30 U/L (0-32); Potassium 5.2 mmol/L (3.5-5.1)
[2021-05-02 19:26] LABS: Add Urine Microscopic? YES; Bilirubin Urine 1+ (Negative); Blood Urine 2+ (Negative); Glucose Urine UA Norm (Normal); Ketones Urine 1+ (Negative); Leukocyte Esterase Urine 2+ (Negative); Nitrate Urine Positive (Negative); Protein Urine 2+ (Negative); RBC Urine 25-40 /hpf (0-2); Urine Appearance Cloudy (CLEAR); Urine Color Yellow (Yellow); Urobilinogen Urine Norm (Negative); pH Urine 5 (5-7)
[2021-05-02 19:27] LABS: Add Urine Culture? Yes; Bacteria Urine 4+ /hpf; Squamous Epithelial Cell Urine 0-4 /hpf (0-5); WBC Urine TOO NUMEROUS TO CNT /hpf (0-5)
[2021-05-02] MEDS: cefTRIAXone 1,000 MG in sodium chloride 0.9% (plus) 50 ML 100 MG IV (20:04)
[2021-05-02 21:45] VITALS: BP 145/57; PULSE 78; RESP 16; O2SAT 97
[2021-05-02] MEDS: sodium chloride 0.9% 500 ML 999 ML IV (21:59)
--- NOTE | 2021-05-02 22:55 | XRR_ITS ---
PROCEDURE INFORMATION: Exam: XR Chest Exam date and time: 05/02/2021 10:55 PM Age: 76 years old Clinical indication: Patient HX: New onset of fever. Patient currently under treatment for UTI. TECHNIQUE: Imaging protocol: XR of the chest. Views: 1 view. COMPARISON: CR XR chest 1V portable [id number] 05/06/2020 4:22 PM FINDINGS: Lungs: Changes of emphysema. Chronic interstitial scarring in both lungs. Pleural spaces: Unremarkable. No pleural effusion. No pneumothorax. Heart/Mediastinum: Hiatal hernia. Bones/joints: Unremarkable. XR/XR chest 1V portable [id number] IMPRESSION: No acute findings.
--- NOTE | 2021-05-02 22:56 | P.HP_ITS ---
Providers/Chief Complaint Admitting Physician: Paula Arita MD Primary Care Provider: Pedro Venegas Chief Complaint: UTI X 1 WEEK History of Present Illness Maria Isabel Ho is a 76 year old female with a past with past medical history of COPD, recurrent nephrolithiasis, recently being treated for urinary tract infection with outpatient antibiotics. Presented to the ER today complaining of fever chills, dysuria and B/L flank pain. Noted to have + UA, leukocytosis 17, imaging findings with Right side perinpehric edema, likely pyelonephritis. ROS + for intermittent diarrhea. Review of Systems General: Reports: 10 or more systems reviewed and unremarkable except in HPI and below Const: Denies: fever(s), chills or body aches Eyes: Denies: change in vision, blurry vision or photophobia ENMT: Reports: hoarseness; Denies: throat pain, enlarged tonsils, odynophagia or nasal congestion Card: Denies: chest pain, palpitations, irregular heart rhythm, edema, swelling of feet/ankles, lightheadedness, pre-syncope, dyspnea on exertion or orthopnea Resp: Denies: dyspnea, productive cough, non-productive cough, wheezing, stridor, pain on inspiration, change in phlegm color, hemoptysis or chest congestion GI: Denies: abdominal pain, nausea, vomiting, hematemesis, coffee ground emesis, dysphagia, heartburn, diarrhea, constipation, GI cramping, change in stool character, hematochezia or melena : Denies: flank pain, difficulty voiding, dysuria, urinary frequency, urinary urgency, urinary hesitancy or hematuria Musc: Denies: neck pain, back pain, extremity pain, joint swelling, joint warmth or deformity Neuro: Denies: headache(s), numbness in extremities, weakness in extremities, sensory changes, difficulty walking, frequent falls, dizziness, vertigo, behavioral changes, Slurred speech present or seizure-like activity Psych: Denies: anxiety, depression, suicidal ideation or homicidal ideation Endo: Denies: polyuria, polydipsia, tired all the time, cold intolerance or hot flashes Mode/Lymph: Denies: easy bruising or easy bleeding Medications/Allergies Home Medications Medication Instructions Recorded Confirmed Last Taken Type albuterol sulfate [Ventolin HFA] 2 puff INHALATION Q6H PRN 05/06/20 05/02/21 U nknown History amitriptyline 25 mg PO BEDTIME@2330 05/06/20 05/02/21 05/05/20 History aspirin [Aspir-81] 81 mg PO DAILY@2330 05/06/20 05/02/21 05/05/20 History buspirone 10 mg PO BID PRN 05/06/20 05/02/21 Unknown History citalopram 20 mg PO BEDTIME@2330 05/06/20 05/02/21 05/05/20 History clopidogrel 75 mg PO BEDTIME@2330 05/06/20 05/02/21 05/05/20 History felodipine 5 mg PO BID@0900,2300 05/06/20 05/02/21 05/05/20 History lisinopril 20 mg PO DAILY@0900 05/06/20 05/02/21 05/05/20 History lovastatin 40 mg PO BEDTIME@2330 05/06/20 05/02/21 05/05/20 History meclizine 25 mg PO TID PRN 05/06/20 05/02/21 05/05/20 History montelukast 10 mg PO BEDTIME@2330 05/06/20 05/02/21 05/05/20 History omeprazole 20 mg PO DAILY@0900 05/06/20 05/02/21 05/05/20 History oxybutynin chloride 5 mg PO BID@0900,2330 05/06/20 05/02/21 05/05/20 History propranolol See Rx Instructions .ROUTE .COMPLEX 05/06/20 05/02/21 05/05/20 History melatonin 5 mg tablet 2.5 mg PO BEDTIME 06/12/20 05/02/21 Unknown History umeclidinium 62.5 mcg-vilanterol 1 inh INHALATION DAILY 06/12/20 05/02/21 Unkno wn History 25 mcg/actuation powdr for inhalation Anoro Ellipta 1 puff INHALATION BID 05/02/21 05/02/21 Unknown History Allergies Allergy/AdvReac Type Severity Reaction Status Date / Time Penicillins Allergy ALGY-Hives Verified 09/06/20 09:46 tetracycline Allergy ALGY-Hives Verified 09/06/20 09:46 PFSH Acute PFSH: Medical History Chronic back pain Chronic kidney disease (CKD) COPD (chronic obstructive pulmonary disease) Frequent falls History of hypertension Hx of chest pain Hx of hyperlipidemia Hx of renal calculi Hx of type 2 diabetes mellitus Impaired physical mobility Peripheral vascular disease Postmenopausal Smoker Syncope Family History Grandmother Clotting disorder Brother Cancer Diabetes Stroke Son Chronic kidney disease (CKD) Mother Diabetes Father Stroke Denies family history of CAD (coronary artery disease) Dementia Suicide Anesthesia complication Bleeding disorder Lung disease Social History Smoking and tobacco status: current every day smoker Alcohol intake: never Vitals/I&O/Wt Last Vital Signs Temp 98.6 F 05/02/21 18:35 Pulse 78 05/02/21 21:45 Resp 16 05/02/21 21:45 BP 145/57 05/02/21 21:45 Pulse Ox 97 05/02/21 21:45 05/02/21 05/02/21 05/02/21 06:59 14:59 22:59 Intake Total 550 / 550 Balance 550 / 550 Weight last 48 hrs Weight 51.256 kg Physical Exam Narrative: EXAM NARRATIVE: General: No acute distress, AO x3 HEENT: PERRLA, pupils bilaterally equal and reactive, pallors not present Chest: Normal vesicular breath sounds, no added sounds, equal good air entry bilaterally CVS: S1-S2 regular, no murmurs, no tachycardia, no gallops, no rubs Abdomen: Soft, nontender, R flank tenderness Neuro: No focal deficits, no facial deformity, AO x3, power 5/5 in all limbs Data : 05/03/21 02:19 05/03/21 02:19 Attestation for Other Data: I personally reviewed and interpreted the following: Other data: Radiology Impressions Abdomen/Pelvis CT 05/02/21 19:01 IMPRESSION: 1. Minimal right kidney perinephric edema perhaps reflecting a pyelonephritis in the appropriate clinical setting. 2. Emphysematous changes. 3. Moderate to large hiatal hernia. 4. Cholelithiasis. 5. Bilateral nonobstructive renal calyceal stones. 6. Left kidney cyst, negative for follow up. 7. Calcified uterine fibroids measuring up to 11.9 mm. 8. Diverticulosis without diverticulitis. 9. Hepatic dome 16 mm low-density lesion, consider further evaluation with nonemergent dedicated CT of the liver with intravenous contrast. Chest X-Ray 05/02/21 22:55 IMPRESSION: No acute findings. Laboratory Results WBC 13.3 10^3/uL (4.0-10.0) H 05/03/21 02:19 RBC 4.17 10^6/uL (4.1-5.3) 05/03/21 02:19 Hgb 12.7 g/dL (11.5-15.3) 05/03/21 02:19 Hct 37.5 % (37.0-47.0) 05/03/21 02:19 MCV 89.9 fl (81-99) 05/03/21 02:19 MCH 30.5 pg (28.0-34.0) 05/03/21 02:19 MCHC 33.9 g/dL (30.0-36.0) 05/03/21 02:19 RDW 13.9 % (12.1-15.1) 05/03/21 02:19 Plt Count 184 10^3/cmm (130-400) 05/03/21 02:19 MPV 11.2 fL (7.4-10.4) H 05/03/21 02:19 Neut % (Auto) 92.1 % 05/03/21 02:19 Lymph % (Auto) 3.5 % 05/03/21 02:19 [place] % (Auto) 3.6 % 05/03/21 02:19 Eos % (Auto) 0.0 % 05/03/21 02:19 Baso % (Auto) 0.3 % 05/03/21 02:19 Neut # (Auto) 12.28 10^3/uL (1.8-7.7) H 05/03/21 02:19 Lymph # (Auto) 0.5 10^3/uL (0.8-4.8) L 05/03/21 02:19 [place] # (Auto) 0.5 10^3/uL (0.2-0.9) 05/03/21 02:19 Eos # (Auto) 0.0 10^3/uL (0.0-0.8) 05/03/21 02:19 Baso # (Auto) 0.0 10^3/uL (0.0-0.1) 05/03/21 02:19 Nucleated RBC % (auto) 0 % 05/03/21 02:19 Nucleated RBCs # 0.0 /100WBC 05/03/21 02:19 Sodium 132 mmol/L (136-145) L 05/03/21 02:19 Potassium 4.1 mmol/L (3.5-5.1) 05/03/21 02:19 Chloride 95 mmol/L (98-107) L 05/03/21 02:19 Carbon Dioxide 19 mmol/L (22-29) L 05/03/21 02:19 Anion Gap 22.1 (5-19) H 05/03/21 02:19 BUN 21 mg/dL (8-23) 05/03/21 02:19 Creatinine 1.9 mg/dL (0.5-0.9) H 05/03/21 02:19 GFR Calculation Not Reportable 05/03/21 02:19 Glucose 107 mg/dL (65-115) 05/03/21 02:19 Calculated Osmolality 277 mOsm/kg (285-295) L 05/03/21 02:19 Lactic Acid 3.7 mmol/L (0.5-2.2) H 05/03/21 00:01 Lactic Acid (Sepsis) 2.1 mmol/L (0.5-2.2) 05/03/21 02:19 Calcium 8.2 mg/dL (8.5-10.5) L 05/03/21 02:19 Total Bilirubin 0.4 mg/dL (0.15-1.2) 05/03/21 02:19 AST 15 U/L (0-32) 05/03/21 02:19 ALT 6 U/L (0-33) 05/03/21 02:19 Alkaline Phosphatase 79 IU/L (35-105) 05/03/21 02:19 Total Protein 6.9 g/dL (6.6-8.7) 05/03/21 02:19 Albumin 3.6 g/dL (3.5-5.2) 05/03/21 02:19 Globulin 3.3 g/dL (1.3-4.6) 05/03/21 02:19 Lipase 10 U/L (13-60) L 05/02/21 17:55 Urine Color Yellow (Yellow) 05/02/21 19:08 Urine Appearance Cloudy (CLEAR) 05/02/21 19:08 Urine pH 5 (5-7) 05/02/21 19:08 Ur Specific [place] 1.010 (1.005-1.030) 05/02/21 19:08 Urine Protein 2+ (Negative) H 05/02/21 19:08 Urine Glucose (UA) Norm (Normal) 05/02/21 19:08 Urine Ketones 1+ (Negative) H 05/02/21 19:08 Urine Blood 2+ (Negative) H 05/02/21 19:08 Urine Nitrate Positive (Negative) H 05/02/21 19:08 Urine Bilirubin 1+ (Negative) H 05/02/21 19:08 Urine Urobilinogen Norm mg/dL (Negative) 05/02/21 19:08 Ur Leukocyte Esterase 2+ (Negative) H 05/02/21 19:08 Urine RBC 25-40 /hpf (0-2) H 05/02/21 19:08 Urine WBC Too numerous to cnt /hpf (0-5) H 05/02/21 19:08 Ur Squamous Epith Cells 0-4 /hpf (0-5) H 05/02/21 19:08 Amorphous Sediment Not Reportable 05/02/21 19:08 Urine Bacteria 4+ /hpf (NONE) H 05/02/21 19:08 A&P Assessment and plan (1) Pyelonephritis: Acute pyelonephritis with failure of outpatient abx treatment (pt does not recall name) Admit to med/surg Ceftriaxone 1 g iv q24h Blood cx ordered, urine cx pending no obstructive stones on CT abdomen continue home medicatiosn including ASA, plavix, stains Status: Acute Attestations Medical Necessity Statement*: anticipat e>2midnight admission for management of pyelonephritis with iv abxgiven failure of outpatient po regimen Coding Level of Care Code Acute Utilization Review Specialist for g Fwd Diagnoses Pyelonephritis N12
[2021-05-03] VITALS (12 sets, daily range): BP systolic 134–159; BP diastolic 70–83; PULSE 67–105; RESP 16–20; TEMP 36.7–37; O2SAT 90–96
[2021-05-03] MEDS: enoxaparin 40 mg/0.4 mL Syringe SUBCUT (00:25)
[2021-05-03 00:46] LABS: Lactic Sepsis W/Reflex 3.7 mmol/L (0.5-2.2)
[2021-05-03 01:57] LABS: Reflex Lactate Order REFLEX LACTIC ORDERD
[2021-05-03 02:33] LABS: Basophils % 0.3 %; Hematocrit 37.5 % (37.0-47.0); Hemoglobin 12.7 g/dL (11.5-15.3); Lymphocytes # 0.5 10^3/uL (0.8-4.8); Lymphocytes % 3.5 %; Mean Corpuscular HGB Conc 33.9 g/dL (30.0-36.0); Mean Corpuscular Hemoglobin 30.5 pg (28.0-34.0); Mean Corpuscular Volume 89.9 fl (81-99); Mean Platelet Volume 11.2 fL (7.4-10.4); Monocytes # 0.5 10^3/uL (0.2-0.9); Monocytes % 3.6 %; Neutrophils # 12.28 10^3/uL (1.8-7.7); Neutrophils % 92.1 %; Nucleated Red Blood Cells % 0 %; Platelet Count 184 10^3/cmm (130-400); Red Blood Count 4.17 10^6/uL (4.1-5.3); Red Cell Distribution Width 13.9 % (12.1-15.1); White Blood Count 13.3 10^3/uL (4.0-10.0)
[2021-05-03 02:50] LABS: Alanine Aminotransferase 6 U/L (0-33); Albumin Level 3.6 g/dL (3.5-5.2); Alkaline Phosphatase 79 IU/L (35-105); Anion Gap 22.1 (5-19); Aspartate Amino Transferase 15 U/L (0-32); Blood Urea Nitrogen 21 mg/dL (8-23); Calcium 8.2 mg/dL (8.5-10.5); Carbon Dioxide 19 mmol/L (22-29); Chloride 95 mmol/L (98-107); Globulin 3.3 g/dL (1.3-4.6); Glucose 107 mg/dL (65-115); Osmolality Calculated 277 mOsm/kg (285-295); Potassium 4.1 mmol/L (3.5-5.1); Sodium 132 mmol/L (136-145); Total Bilirubin 0.4 mg/dL (0.15-1.2); Total Protein 6.9 g/dL (6.6-8.7)
[2021-05-03 02:51] LABS: Lactic Acid level (Lactate) 2.1 mmol/L (0.5-2.2)
[2021-05-03] MEDS: sodium chloride 0.9% 1,000 ML 75 ML IV ×2 (08:27→21:45)
[2021-05-03] MEDS: cefepime 2,000 MG in sodium chloride 0.9% (plus) 50 ML 100 MG IV (08:27)
[2021-05-03] MEDS: clopidogrel 75 mg Tablet PO (08:31)
[2021-05-03] MEDS: aspirin 81 mg EC Tablet PO (08:31)
[2021-05-03] MEDS: pantoprazole DR 40 mg Tablet PO (08:32)
--- NOTE | 2021-05-03 09:23 | P.PN_ITS ---
Subjective Subjective: Interval history: Patient this morning is endorsing slight discomfort in her left flank area otherwise she is feeling better She does not have Mcmillan catheter, able to void urine on her own without any difficulty Able to tolerate her diet Vitals/I&O/Wt Last Vital Signs Temp 98.1 F 05/03/21 07:20 Pulse 80 05/03/21 08:38 Resp 20 H 05/03/21 08:38 BP 148/83 05/03/21 07:20 Pulse Ox 96 05/03/21 08:38 05/02/21 05/03/21 05/03/21 22:59 06:59 14:59 Intake Total 550 / 550 240 / 790 50 / 50 Balance 550 / 550 240 / 790 50 / 50 Weight last 48 hrs Weight 51.256 kg Physical Exam Narrative: EXAM NARRATIVE: Nonfocal neuro exam Very pleasant Saturating well on room air Left CVA tenderness positive Abdomen soft Euvolemic Very pleasant S1, S2 Saturating well on room air Data : 05/03/21 02:19 05/03/21 02:19 Micro: Microbiology 05/03/21 00:05 Blood Culture - Preliminary Blood SPECIMEN COLLECTED 05/03/21 00:01 Blood Culture - Preliminary Blood SPECIMEN COLLECTED A&P Assessment and plan (1) Pyelonephritis: Status: Acute Additional A&P Information Pyelonephritis Leukocytosis, worsening creatinine Lactic acidosis 3.7 CT Abdo pelvis done in the ER without contrast Escalated antibiotics to cefepime Continue IV fluids normal saline along cefepime for now Follow-up with blood and urine culture Continue cardiac diet DVT prophylaxis Lovenox She is full code Attestations Medical Necessity Statement*: continue med managment Time Spent in Patient Care: less than 15 minutes Coding Level of Care Code Acute Bioinformatics Support Specialist for [facility] Diagnoses Pyelonephritis N12
--- NOTE | 2021-05-03 10:14 | PC.CHAP ---
Pastoral Care Encounter/Spiritual Assessment Type of Contact [] Declined foaming machine operator visit [] Patient/Family/Request visit [] Outpatient visit [] Follow-up visit [] Physician referral [] Code/Alert [x] Routine visit [] Staff referral [] Actively dying [] Patient sleeping [] Family support [] [] Out of room [] Palliative care [] [x] Receiving care in room [] Pre-surgical visit [] Trauma [] Long length of stay [] ICU visit [] Other: Relational/Emotional Strength [x] Patient feels connected with others/family/visitors/staff [] Distress [] Loneliness/isolation [] Abandonment Spirituality of Patient [x] Person of Ramya [] Attends Denominational of their Ramya [x] Believes in Prayer [] Reads Bible or Pentecostal materials [] There are Spiritual issues to be addressed Bolt Cutter Interventions [x] Prayer [x] Active listening [x] Non-anxious presence [x] Spiritual/emotional support [] Crisis/trauma care [x] Spiritual counseling [] Bereavement support [] Provided bereavement packet [] Provided Bible/devotional materials [] Provided toy/stuffed animal, coloring book to patient or family member [] Provided Communion [] Anointing/[place]ene [] Salvation [x] Completed spiritual assessment [] Other: Impact on Illness or Injury [] Angry [] Fearful [x] Anxious [] Often cries [] Exhaustion [] Unable to work [] Unable to attend rastafarian [] Unable to walk/stand [] Unable to read [] Unable to drive [] Unable to eat/drink [] Unable to sleep [] Unable to be with family [] Patient intubated [] Other: Summary waiting on tests and doctors report feels better and is going home soon Time spent with patient 10 mins
[2021-05-03] MEDS: enoxaparin 30 mg/0.3 mL Syringe SUBCUT (22:31)
[2021-05-04] VITALS (10 sets, daily range): BP systolic 156–220; BP diastolic 68–80; PULSE 72–86; RESP 16–20; TEMP 36.3–37.3; O2SAT 94–98
[2021-05-04 05:34] LABS: Basophils % 0.2 %; Eosinophils # 0.1 10^3/uL (0.0-0.8); Eosinophils % 0.6 %; Hematocrit 33.1 % (37.0-47.0); Hemoglobin 10.9 g/dL (11.5-15.3); Lymphocytes # 0.6 10^3/uL (0.8-4.8); Lymphocytes % 5.8 %; Mean Corpuscular HGB Conc 32.9 g/dL (30.0-36.0); Mean Corpuscular Hemoglobin 30.5 pg (28.0-34.0); Mean Corpuscular Volume 92.7 fl (81-99); Mean Platelet Volume 12.2 fL (7.4-10.4); Monocytes # 0.5 10^3/uL (0.2-0.9); Monocytes % 4.7 %; Neutrophils # 9.03 10^3/uL (1.8-7.7); Nucleated Red Blood Cells % 0 %; Platelet Count 161 10^3/cmm (130-400); Red Blood Count 3.57 10^6/uL (4.1-5.3); Red Cell Distribution Width 14.3 % (12.1-15.1); White Blood Count 10.3 10^3/uL (4.0-10.0)
[2021-05-04 05:56] LABS: Anion Gap 16.6 (5-19); Blood Urea Nitrogen 21 mg/dL (8-23); Calcium 7.5 mg/dL (8.5-10.5); Carbon Dioxide 19 mmol/L (22-29); Chloride 101 mmol/L (98-107); Glucose 110 mg/dL (65-115); Osmolality Calculated 280 mOsm/kg (285-295); Potassium 3.6 mmol/L (3.5-5.1); Sodium 133 mmol/L (136-145)
[2021-05-04] MEDS: pantoprazole DR 40 mg Tablet PO (08:28)
[2021-05-04] MEDS: cefepime 1,000 MG in sodium chloride 0.9% (plus) 50 ML 100 MG IV (08:28)
[2021-05-04] MEDS: aspirin 81 mg EC Tablet PO (08:28)
[2021-05-04] MEDS: clopidogrel 75 mg Tablet PO (08:28)
[2021-05-04] MEDS: acetaminophen 325 mg Tablet 650 MG PO (08:37)
--- NOTE | 2021-05-04 09:05 | PM.PN ---
Subjective Subjective: Interval history: This morning patient is feeling better, adequate urine output, continue normal saline, creatinine improving, leukocytosis improving, urine culture growing gram-negative giselle Vitals/I&O/Wt Last Vital Signs Temp 98.5 F 05/04/21 07:45 Pulse 86 05/04/21 08:54 Resp 16 05/04/21 08:54 BP 168/68 05/04/21 07:45 Pulse Ox 96 05/04/21 08:54 05/03/21 05/04/21 05/04/21 22:59 06:59 14:59 Intake Total 1237.5 / 1527.5 400 / 1927.5 Output Total 1000 / 1000 1000 / 2000 Balance 237.5 / 527.5 -600 / -72.5 Weight last 48 hrs Weight 51.256 kg Physical Exam Narrative: EXAM NARRATIVE: Patient resting comfortably in her bed She has pursed lip breathing however no conversational dyspnea Does not use oxygen at home, saturating 94% as per the nursing staff Abdomen soft, CVA tenderness positive No audible stridor or wheezing S1, S2 No signs of edema Nonfocal neuro exam Awake and alert Data : 05/04/21 04:39 05/04/21 04:39 Micro: Microbiology 05/03/21 00:05 Blood Culture - Preliminary Blood NEGATIVE TO DATE 05/03/21 00:01 Blood Culture - Preliminary Blood NEGATIVE TO DATE 05/02/21 19:08 Urine Culture - Preliminary Urine,Clean Catch Gram Negative Rods A&P Assessment and plan (1) Pyelonephritis: Status: Acute (2) Acute pyelonephritis due to bacteria: Status: Acute (3) Acute UTI: Status: Acute Additional A&P Information Pyelonephritis Currently on cefepime Leukocytosis improving Afebrile Gram-negative giselle in urine culture We will discharge her on 10-day regimen of p.o. 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
[2021-05-04] MEDS: sodium chloride 0.9% 1,000 ML 75 ML IV (10:35)
[2021-05-04] MEDS: hyDRALAzine 10 mg Tablet PO ×2 (17:49→20:29)
[2021-05-04] MEDS: amlodipine 10 mg Tablet PO (17:49)
[2021-05-05] MEDS: enoxaparin 30 mg/0.3 mL Syringe SUBCUT (00:38)
[2021-05-05 04:15] VITALS: BP 163/71; PULSE 83; RESP 16; TEMP 37.2; O2SAT 97
[2021-05-05 05:30] LABS: Basophils % 0.3 %; Eosinophils # 0.1 10^3/uL (0.0-0.8); Eosinophils % 1.4 %; Hematocrit 35.2 % (37.0-47.0); Hemoglobin 11.8 g/dL (11.5-15.3); Lymphocytes # 0.6 10^3/uL (0.8-4.8); Lymphocytes % 9.5 %; Mean Corpuscular HGB Conc 33.5 g/dL (30.0-36.0); Mean Corpuscular Hemoglobin 30.3 pg (28.0-34.0); Mean Corpuscular Volume 90.3 fl (81-99); Mean Platelet Volume 12.2 fL (7.4-10.4); Monocytes # 0.5 10^3/uL (0.2-0.9); Monocytes % 7.1 %; Neutrophils % 81.4 %; Nucleated Red Blood Cells % 0 %; Platelet Count 176 10^3/cmm (130-400); White Blood Count 6.5 10^3/uL (4.0-10.0)
[2021-05-05 05:50] LABS: Blood Urea Nitrogen 13 mg/dL (8-23); Calcium 8.1 mg/dL (8.5-10.5); Carbon Dioxide 18 mmol/L (22-29); Chloride 98 mmol/L (98-107); Glucose 98 mg/dL (65-115); Osmolality Calculated 276 mOsm/kg (285-295); Sodium 133 mmol/L (136-145)
[2021-05-05 06:00] VITALS: PULSE 80
[2021-05-05 06:02] LABS: Anion Gap 20.6 (5-19); Potassium 3.6 mmol/L (3.5-5.1)
[2021-05-05 07:30] VITALS: BP 171/76; PULSE 93; RESP 16; TEMP 36.6; O2SAT 94
[2021-05-05] MEDS: pantoprazole DR 40 mg Tablet PO (08:03)
[2021-05-05] MEDS: hyDRALAzine 10 mg Tablet PO (08:03)
[2021-05-05] MEDS: amlodipine 10 mg Tablet PO (08:03)
[2021-05-05] MEDS: clopidogrel 75 mg Tablet PO (08:03)
[2021-05-05] MEDS: aspirin 81 mg EC Tablet PO (08:03)
[2021-05-05] MEDS: acetaminophen 325 mg Tablet 650 MG PO (08:08)
[2021-05-05 08:26] VITALS: PULSE 74; RESP 17; O2SAT 94
--- NOTE | 2021-05-05 09:40 | PC.NURSE ---
Patient pulled out IV. Asked Dr. Nair if he wanted me to place another so the patient could receive the cefepime before being discharged. Dr. Nair approved not placing another IV at this time.
--- NOTE | 2021-05-05 10:47 | PM.DCS ---
Discharge Providers Date of Admission: 05/02/21 21:02 Date of Discharge: May 05, 2021 Attending Provider at Admission: Paula Arita MD Attending Provider at Discharge: Paula Arita MD Primary Care Provider: Pedro Venegas Diagnoses at Discharge Discharge Diagnosis (1) Pyelonephritis: Status: Acute (2) Acute pyelonephritis due to bacteria: Status: Acute (3) Acute UTI: Status: Acute (4) Hepatic lesion: Status: Acute (5) GIL (acute kidney injury): Status: Acute Reason for Visit Reason for Visit: UTI X 1 WEEK Hospital Course Hospital Course Patient was admitted on 05/02 after failing outpatient treatment for UTI. She was diagnosed with pyelonephritis for which she required IV antibiotics, I escalated her ceftriaxone to cefepime after noticing worsening of leukocytosis. Her leukocytosis improved, her GIL was secondary to dehydration and pyelonephritis which improved gradually as well. She remained afebrile, urine culture positive for E. coli which is pansensitive. She will be discharged home on Levaquin 2-week regimen. No obstructive stones noted. Patient is stating that she was taking ciprofloxacin before her arrival in the ER. At the time of discharge white count 6.5, creatinine 1.1 improved from 1.9. GIL improved with IV fluid hydration. CT/CT kidney stone [id number] IMPRESSION: 1. Minimal right kidney perinephric edema perhaps reflecting a pyelonephritis in the appropriate clinical setting. 2. Emphysematous changes. 3. Moderate to large hiatal hernia. 4. Cholelithiasis. 5. Bilateral nonobstructive renal calyceal stones. 6. Left kidney cyst, negative for follow up. 7. Calcified uterine fibroids measuring up to 11.9 mm. 8. Diverticulosis without diverticulitis. 9. Hepatic dome 16 mm low-density lesion, consider further evaluation with nonemergent dedicated CT of the liver with intravenous contrast. CT liver with IV contrast was not done because of high creatinine, will cover her prescription for abdominal CT to be done within the next 3 weeks, will check BMP in 2 weeks Physical Exam Narrative: EXAM NARRATIVE: Very pleasant early female S1, S2 Abdomen soft Nonfocal neuro exam Saturating well on room air Does have history of COPD however does not use oxygen at home Awake alert oriented x3 GCS 15 Discharge Data Data Completed and Pending: Completed Studies During Hospitalization Category Date Time Status CT kidney stone [id number] Urgent Cat Scan 05/02/21 19:01 Completed XR chest 1V pj ble [id number] Routine Exams 05/02/21 22:55 Completed Pending at discharge Category Date Time Status Blood Culture Sta t Lab 05/02/21 20:59 Results Labs from last 24 hours 05/05/21 05/05/21 04:29 04:29 WBC 6.5 RBC 3.90 L Hgb 11.8 Hct 35.2 L MCV 90.3 MCH 30.3 MCHC 33.5 RDW 14.0 Plt Count 176 MPV 12.2 H Neut % (Auto) 81.4 Lymph % (Auto) 9.5 [place] % (Auto) 7.1 Eos % (Auto) 1.4 Baso % (Auto) 0.3 Neut # (Auto) 5.30 Lymph # (Auto) 0.6 L [place] # (Auto) 0.5 Eos # (Auto) 0.1 Baso # (Auto) 0.0 Nucleated RBC % (a uto) 0 Nucleated RBCs # 0.0 Sodium 133 L Potassium 3.6 Chloride 98 Carbon Dioxide 18 L Anion Gap 20.6 H BUN 13 Creatinine 1.1 H GFR Calculation Not Reportable Glucose 98 Calculated Osmolal ity 276 L Calcium 8.1 L Vitals: Last Vital Signs Temp 97.9 F 05/05/21 07:30 Pulse 74 05/05/21 08:26 Resp 17 05/05/21 08:26 BP 171/76 05/05/21 07:30 Pulse Ox 94 05/05/21 08:26 Discharge Plan Discharge Patient Disposition: Home Condition: Stable Prescriptions: New levofloxacin 750 mg tablet 750 mg PO DAILY 14 Days Qty: 14 RF: 0 Continued Anoro Ellipta 62.5-25 mcg/actuation blister with device 1 inh inhalation DAILY RF: 0 melatonin 5 mg tablet 2.5 mg PO BEDTIME RF: 0 Anoro Ellipta 62.5 mcg/25 mcg 1 puff inhalation BID RF: 0 lisinopril 20 mg tablet 20 mg PO DAILY@0900 RF: 0 felodipine 5 mg tablet extended release 24 hr 5 mg PO BID@0900,2300 RF: 0 lovastatin 40 mg tablet 40 mg PO BEDTIME@2330 RF: 0 clopidogrel 75 mg tablet 75 mg PO BEDTIME@2330 RF: 0 aspirin 81 mg Tablet,Delayed Release (Dr/Ec) 81 mg PO DAILY@2330 RF: 0 propranolol 40 mg tablet See Rx Instructions .ROUTE .COMPLEX RF: 0 citalopram 20 mg tablet 20 mg PO BEDTIME@2330 RF: 0 amitriptyline 25 mg tablet 25 mg PO BEDTIME@2330 RF: 0 meclizine 25 mg tablet 25 mg PO TID PRN (Reason: Dizziness) RF: 0 buspirone 10 mg tablet 10 mg PO BID PRN (Reason: UNKNOWN) RF: 0 omeprazole 20 mg capsule,delayed release(DR/EC) 20 mg PO DAILY@0900 RF: 0 montelukast 10 mg tablet 10 mg PO BEDTIME@2330 RF: 0 albuterol sulfate [Ventolin HFA] 90 mcg/actuation HFA aerosol inhaler 2 puff inhalation Q6H PRN (Reason: Shortness Of Breath) RF: 0 oxybutynin chloride 5 mg tablet 5 mg PO BID@0900,2330 RF: 0 Discharge Orders: Discharge Order (Routine); Ordered 05/05/21 Ordered By: Clifton Nair Other Ambulatory Orders: CT abdomen w con* [id number] (Routine) Timeframe: 3 Weeks Facility: [facility] - Location: Radiology [place] [facility] Ordered By: Clifton Nair Basic Metabolic Panel (Routine) Timeframe: 2 Weeks Facility: [facility] - Location: Lab - Main Lab Ordered By: Clifton Nair Referrals: Pedro Venegas [Primary Care Provider] - (Please call on Friday to schedule an appointment to be seen in 4-7 days.) Patient Instructions: Levofloxacin (By mouth) (CliffordaqRaffi donaldson Leva-christ), Opioid Safety, Pyelonephritis Discharge Attestations Time Spent in Discharge Care*: less than 30 min Quality Metrics Clinical Quality Measures During this hospital stay, did patient experience: None Coding Level of Care Code Acute Chg FW DC note Diagnoses Pyelonephritis N12 Acute pyelonephritis due to bacteria N10; B96.89 Acute UTI N39.0 Hepatic lesion K76.9 GIL (acute kidney injury) N17.9
[2021-05-05 12:27] VITALS: PULSE 74; RESP 17; O2SAT 94
== END 2021-05-05 12:28 | disposition home health service (06) | DRG 690 ==
LOC: ER 21:11 → MEDSURG 22:07
PROVIDERS: Emergency Medicine; Internal Medicine; Admitting Provider Student in an Organized Health Care Education/Training Program; Emergency Provider Emergency Medicine; PCP Physician Assistant Medical; Visit Provider Student in an Organized Health Care Education/Training Program
DX: N10 Acute pyelonephritis (principal); F17.210 Nicotine dependence, cigarettes, uncomplicated; J44.9 Chronic obstructive pulmonary disease, unspecified; Z87.442 Personal history of urinary calculi; Z87.440 Personal history of urinary (tract) infections; G89.29 Other chronic pain; M54.9 Dorsalgia, unspecified; I12.9 Hypertensive chronic kidney disease with stage 1 through stage 4 chronic kidney disease, or unspecified chronic kidney disease; E11.22 Type 2 diabetes mellitus with diabetic chronic kidney disease; N18.9 Chronic kidney disease, unspecified; E11.51 Type 2 diabetes mellitus with diabetic peripheral angiopathy without gangrene; E78.5 Hyperlipidemia, unspecified; Z78.0 Asymptomatic menopausal state; N39.0 Urinary tract infection, site not specified; N17.9 Acute kidney failure, unspecified; K76.9 Liver disease, unspecified; E86.0 Dehydration; B96.20 Unspecified Escherichia coli [E. coli] as the cause of diseases classified elsewhere; Z79.02 Long term (current) use of antithrombotics/antiplatelets; Z79.82 Long term (current) use of aspirin; Z79.51 Long term (current) use of inhaled steroids
CPT/HCPCS: 36415; 71045; 74176; 80048; 80053; 81001; 83605; 83690; 85025; 87040; 87077; 87086; 87186; 96365; 96372; 99285; J0692; J0696; J1650; J7030; J7040

== ENCOUNTER 2022-02-20 19:51 | Emergency (ER) | payer MEDICARE, MEDICAID, SELFPAY ==
[2022-02-20 20:33] VITALS: BP 216/71; PULSE 67; RESP 24; TEMP 37.3; O2SAT 94; BMI 21.9
[2022-02-20 21:34] LABS: Basophils % 0.5 %; Eosinophils # 0.2 10^3/uL (0.0-0.8); Eosinophils % 2.7 %; Hematocrit 36.4 % (37.0-47.0); Hemoglobin 11.8 g/dL (11.5-15.3); Lymphocytes # 0.7 10^3/uL (0.8-4.8); Mean Corpuscular HGB Conc 32.4 g/dL (30.0-36.0); Mean Corpuscular Volume 86.3 fl (81-99); Mean Platelet Volume 11.5 fL (7.4-10.4); Monocytes # 0.7 10^3/uL (0.2-0.9); Monocytes % 9.9 %; Neutrophils # 5.79 10^3/uL (1.8-7.7); Neutrophils % 77.5 %; Nucleated Red Blood Cells % 0 %; Platelet Count 256 10^3/cmm (130-400); Red Blood Count 4.22 10^6/uL (4.1-5.3); Red Cell Distribution Width 15.1 % (12.1-15.1); White Blood Count 7.5 10^3/uL (4.0-10.0)
[2022-02-20] MEDS: sodium chloride 0.9% 1,000 ML 999 ML IV (21:36)
--- NOTE | 2022-02-20 21:42 | XRR_ITS ---
PROCEDURE INFORMATION: Exam: XR Chest Exam date and time: 02/20/2022 10:00 PM Age: 76 years old Clinical indication: Shortness of breath; Additional info: SOB TECHNIQUE: Imaging protocol: Radiologic exam of the chest. Views: 1 view. COMPARISON: CR XR chest 1V portable [id number] 05/02/2021 11:09 PM FINDINGS: Lungs: Lungs are clear. Pleural spaces: There is no pleural effusion or pneumothorax. Heart/Mediastinum: There is a small hiatal hernia. Cardiomediastinal contours are unremarkable. Bones/joints: Bones are unremarkable. XR/XR chest 1V portable [id number] IMPRESSION: No acute findings.
--- NOTE | 2022-02-20 21:42 | ED_ITS ---
Documented by User: Joselito Villafuerte DO 02/20/22 23:06 HPI - General Adult General: Chief complaint: General Medical Stated complaint: blood in urine, weakness, possible UTI Time Seen by Provider: 02/20/22 21:18 Source: patient and family Mode of arrival: ambulatory Limitations: no limitations History of Present Illness: This patient was brought in by family because they are concerned that she might have a urinary tract infection. She has had increased concentration/odiferous urine recently. They states she is also been a little bit more confused over the past few days. No known fevers. Mild cough but she is oxygen dependent for COPD. She denies any chest pain. She has had loose stool but no vomiting. No abdominal pain. She allegedly drinks water but has a rather small appetite which is not unusual for her. No falls or known exposure to infectious disease. Associated symptoms: Reports dyspnea and rash; Deny chest pain, headache(s), nausea, palpitations or vomiting Review of Systems Const: Reports: change in appetite; Denies: fever(s), chills or body aches Eyes: Denies: change in vision ENMT: Reports: throat pain; Denies: odynophagia, ear or mastoid pain, ear discharge, nasal congestion or nasal obstruction Card: Denies: chest pain, palpitations, irregular heart rhythm or edema Resp: Reports: dyspnea GI: Reports: diarrhea; Denies: abdominal pain, nausea or vomiting : Reports: oliguria; Denies: flank pain, difficulty voiding, dysuria or urinary frequency Musc: Denies: neck pain, back pain, extremity pain or extremity swelling Skin/Breast: Reports: rash and pruritus Neuro: Denies: headache(s), numbness in extremities or weakness in extremities Psych: Denies: anxiety or depression Mode/Lymph: Denies: easy bruising PFSH ED PFSH: Medical History Chronic back pain Chronic kidney disease (CKD) COPD (chronic obstructive pulmonary disease) Frequent falls History of hypertension Hx of chest pain Hx of hyperlipidemia Hx of renal calculi Hx of type 2 diabetes mellitus Impaired physical mobility Peripheral vascular disease Postmenopausal Smoker Syncope Family History Grandmother Clotting disorder Brother Cancer Diabetes Stroke Son Chronic kidney disease (CKD) Mother Diabetes Father Stroke Denies family history of CAD (coronary artery disease) Dementia Suicide Anesthesia complication Bleeding disorder Lung disease Social History Smoking and tobacco status: current every day smoker Alcohol intake: never Physical Exam Narrative: EXAM NARRATIVE: Elderly female who is alert and answers questions appropriately and a rather hoarse voice Const: COMMON NORMALS: patient oriented x3 and alert GENERAL APPEARANCE: cooperative and comfortable NUTRITIONAL APPEARANCE: thin ORIENTATION/CONSCIOUSNESS: Yes awake HENMT: COMMON NORMALS: normocephalic and atraumatic HEAD & SCALP: normocephalic and atraumatic; no scalp tenderness FACE & SINUS: normal facial exam OTHER: She has dry oral mucous membranes with some mild erythema of the tongue but the posterior oropharynx is normal in appearance without any exudate, swelling. Uvula is midline. Eye: COMMON NORMALS: Equal, round and reactive pupils present, EOMs intact bilaterally and conjunctivae normal CONJUNCTIVA: Yes conjunctivae normal PUPIL: Yes Equal, round and reactive pupils present Neck/C-Spine: COMMON NORMALS: full ROM, no lymphadenopathy, no JVD, Thyroid normal and No carotid bruits THYROID: Thyroid normal Chest: COMMONS NORMALS: normal inspection of the chest and normal palpation of entire chest wall Resp: COMMON NORMALS: normal respiratory effort, No retractions and No use of accessory muscles AUSCULTATION: no crackles, no rhonchi, no wheezes and diminished lung sounds (At bases) Cardio: COMMON NORMALS: no JVD, regular rate, regular rhythm, No murmurs present (Cardio) and Peripheral pulses 2+ throughout RATE: regular rate RHYTHM: regular rhythm PERIPHERAL PULSES: Peripheral pulses 2+ throughout GI: COMMON NORMALS: Normal to inspection, nondistended, normoactive bowel sounds present, Soft to palpation, non-tender and no masses PALPATION: Yes Soft to palpation : COMMON NORMALS: Yes no CVA tenderness BLADDER/KIDNEY EXAM: Yes no CVA tenderness Back/Pelvis: COMMON NORMALS: no CVA tenderness, thoracic and lumbar spine normal to inspection, no thoracic nor lumbar tenderness and thoraco-lumbar ROM normal Extremity: COMMON NORMALS: normal to inspection, full ROM, no calf tenderness and no pedal edema NARRATIVE EXTREMITY EXAM: Decrease muscle bulk symmetrically. Neuro: COMMON NORMALS: patient oriented x3, moves all extremities, no focal motor deficits and no sensory deficits noted SENSORIUM/ORIENTATION: Yes alert Skin: NARRATIVE SKIN EXAM: She has multiple areas of excoriation on the skin of her back. No erythema or drainage or suggestive of soft tissue infection cellulitis etc. Course Reevaluation(s): Reevaluation #1: The patient was checked out to Dr. Chahal the overnight physician for disposit ion. Time: 23:05 Vital Signs: Vital signs: Vital Signs Temperature 99.2 F 02/20/22 20:33 Pulse Rate 74 02/21/22 00:00 Respiratory Rate 19 H 02/21/22 00:00 Blood Pressure 201/74 02/21/22 00:00 Pulse Oximetry 96 02/21/22 00:00 Oxygen Delivery Me thod 02/20/22 20:33 MDM - General Adult Medical Decision Making This patient was brought in by family because of concerns about possible urinary tract infection because she is had odiferous and concentrated urine. No fevers chills or other symptoms. She does have a history of oxygen dependent COPD with is been no change in her oxygen requirements. She does not wear oxygen all the time. She has not had cough or other subjective symptoms. Her work-up initially revealed no evidence of urinary tract infection but did display findings suggestive of clinical volume depletion. Hydration initiated in the emergency department and awaiting CT scan. He had systolic hypertension in the emergency department that is being addressed as well due to the the level of hypertension. It is unclear whether she has been taking her usual antihypertensive. The plan will be to discharge to home unless other findings dictate otherwise. Lab Data I reviewed the patient's lab results. : 02/20/22 21:25 02/20/22 21:25 Radiology Impressions Chest X-Ray 02/20/22 21:42 IMPRESSION: No acute findings. Head CT 02/20/22 22:34 IMPRESSION: No acute intracranial abnormality. Laboratory Results WBC 7.5 10^3/uL (4.0-10.0) 02/20/22 21: RBC 4.22 10^6/uL (4.1-5.3) 02/20/22 21:25 Hgb 11.8 g/dL (11.5-15.3) 02/20/22: Hct 36.4 % (37.0-47.0) L 02/20/22: MCV 86.3 fl (81-99) 02/20/22: MCH 28.0 pg (28.0-34.0) 02/20/22: MCHC 32.4 g/dL (30.0-36.0) 02/20/22: RDW 15.1 % (12.1-15.1) 02/20/22: Plt Count 256 10^3/cmm (130-400) 02/20/22: MPV 11.5 fL (7.4-10.4) H 02/20/22: Neut % (Auto) 77.5 % 02/20/22: Lymph % (Auto) 9.0 % 02/20/22: [place] % (Auto) 9.9 % 02/20/22: Eos % (Auto) 2.7 % 02/20/22: Baso % (Auto) 0.5 % 02/20/22: Neut # (Auto) 5.79 10^3/uL (1.8-7.7) 02/20/22: Lymph # (Auto) 0.7 10^3/uL (0.8-4.8) L 02/20/22: [place] # (Auto) 0.7 10^3/uL (0.2-0.9) 02/20/22: Eos # (Auto) 0.2 10^3/uL (0.0-0.8) 02/20/22: Baso # (Auto) 0.0 10^3/uL (0.0-0.1) 02/20/22: Nucleated RBC % (auto) 0 % 02/20/22: Nucleated RBCs # 0.0 /100WBC 02/20/22: Sodium 128 mmol/L (136-145) L 02/20/22: Potassium 3.8 mmol/L (3.5-5.1) 02/20/22: Chloride 88 mmol/L (98-107) L 02/20/22: Carbon Dioxide 28 mmol/L (22-29) 02/20/22: Anion Gap 15.8 (5-19) 11/02/22 21:25 BUN 16 mg/dL (8-23) 02/20/22 21:25 Creatinine 1.3 mg/dL (0.5-0.9) H 02/20/22 21:25 GFR Calculation Not Reportable 02/20/22 21:25 Glucose 106 mg/dL (65-115) 02/20/22 21:25 Calculated Osmolality 268 mOsm/kg (285-295) L 02/20/22 21:25 Calcium 9.5 mg/dL (8.5-10.5) 02/20/22 21:25 Total Bilirubin 0.3 mg/dL (0.15-1.2) 02/20/22 21:25 AST 16 U/L (0-32) 02/20/22 21:25 ALT 13 U/L (0-33) 02/20/22 21:25 Alkaline Phosphatase 108 U/L (35-105) H 02/20/22 21:25 Total Protein 7.8 g/dL (6.6-8.7) 02/20/22 21:25 Albumin 4.1 g/dL (3.5-5.2) 02/20/22 21:25 Globulin 3.7 g/dL (1.3-4.6) 02/20/22 21:25 Urine Color Yellow (Yellow) 02/20/22 21:54 Urine Appearance Clear (CLEAR) 02/20/22 21:54 Urine pH 7 (5-7) 02/20/22 21:54 Ur Specific [place] 1.010 (1.005-1.030) 02/20/22 21:54 Urine Protein 1+ (Negative) H 02/20/22 21:54 Urine Glucose (UA) Norm (Normal) 02/20/22 21:54 Urine Ketones Negative (Negative) 02/20/22 21:54 Urine Blood Neg (Negative) 02/20/22 21:54 Urine Nitrate Negative (Negative) 02/20/22 21:54 Urine Bilirubin Neg (Negative) 02/20/22 21:54 Urine Urobilinogen Norm mg/dL (Negative) 02/20/22 21:54 Ur Leukocyte Esterase Negative (Negative) 02/20/22 21:54 Urine RBC None /hpf (0-2) 02/20/22 21:54 Urine WBC None /hpf (0-5) 02/20/22 21:54 Ur Squamous Epith Cells None /hpf (0-5) 02/20/22 21:54 Ur Transition Epith Cell 0-4 /hpf 02/20/22 21:54 Amorphous Sediment Not Reportable 02/20/22 21:54 Urine Bacteria None /hpf (NONE) 02/20/22 21:54 EKG Data EKG 1: I personally reviewed and interpreted this EKG as follows: Interpretation: Resting EKG reveals a ventricular rate of 65 bpm consistent with normal sinus rhythm. Suggestion of left atrial enlargement on twelve-lead. She has normal intervals, normal axis. No acute ST-T wave changes noted. Computer generated interpretation: Chest X-Ray 02/20/22 21:42 IMPRESSION: No acute findings. Head CT 02/20/22 22:34 IMPRESSION: No acute intracranial abnormality. Discharge Plan Discharge Patient Disposition: Home Clinical Impression: Pharyngitis, Chronic hypertension, COPD (chronic obstructive pulmonary disease), Fluid volume depletion Condition: Stable Prescriptions: No Action Anoro Ellipta 62.5-25 mcg/actuation blister with device 1 inh inhalation DAILY melatonin 5 mg tablet 2.5 mg PO BEDTIME Anoro Ellipta 62.5 mcg/25 mcg 1 puff inhalation BID lisinopril 20 mg tablet 20 mg PO DAILY@0900 felodipine 5 mg tablet extended release 24 hr 5 mg PO BID@0900,2300 lovastatin 40 mg tablet 40 mg PO BEDTIME@2330 clopidogrel 75 mg tablet 75 mg PO BEDTIME@2330 aspirin 81 mg Tablet,Delayed Release (Dr/Ec) 81 mg PO DAILY@2330 propranolol 40 mg tablet See Rx Instructions .ROUTE .COMPLEX Rx Instructions: 40 mg orally TAKE 2 TABS AT 0900 AND 1 TAB AT 2330 citalopram 20 mg tablet 20 mg PO BEDTIME@2330 amitriptyline 25 mg tablet 25 mg PO BEDTIME@2330 meclizine 25 mg tablet 25 mg PO TID PRN (Reason: Dizziness) buspirone 10 mg tablet 10 mg PO BID PRN (Reason: UNKNOWN) omeprazole 20 mg capsule,delayed release(DR/EC) 20 mg PO DAILY@0900 montelukast 10 mg tablet 10 mg PO BEDTIME@2330 albuterol sulfate [Ventolin HFA] 90 mcg/actuation HFA aerosol inhaler 2 puff inhalation Q6H PRN (Reason: Shortness Of Breath) oxybutynin chloride 5 mg tablet 5 mg PO BID@0900,2330 Discharge Orders: Discharge ED (Routine); Ordered 02/20/22 Ordered By: Yazmin Chahal Referrals: Pedro Venegas [Primary Care Provider] - Discharge Diet: Advance as tolerated Discharge Activity: Resume usual activity Patient Instructions: COPD (Chronic Obstructive Pulmonary Disease) (ED) Coding Level of Care Code ED Logistics Management Specialist for Chg Fwd Exam Comprehensive Documented by User: Yazmin Chahal MD 02/21/22 00:06 HPI - General Adult General: Chief complaint: General Medical Stated complaint: blood in urine, weakness, possible UTI Time Seen by Provider: 02/20/22 21:18 PFSH ED PFSH: Medical History Chronic back pain Chronic kidney disease (CKD) COPD (chronic obstructive pulmonary disease) Frequent falls History of hypertension Hx of chest pain Hx of hyperlipidemia Hx of renal calculi Hx of type 2 diabetes mellitus Impaired physical mobility Peripheral vascular disease Postmenopausal Smoker Syncope Family History Grandmother Clotting disorder Brother Cancer Diabetes Stroke Son Chronic kidney disease (CKD) Mother Diabetes Father Stroke Denies family history of CAD (coronary artery disease) Dementia Suicide Anesthesia complication Bleeding disorder Lung disease Social History Smoking and tobacco status: current every day smoker Alcohol intake: never Course Vital Signs: Vital signs: Vital Signs Temperature 99.2 F 02/20/22 20:33 Pulse Rate 74 02/21/22 00:00 Respiratory Rate 19 H 02/21/22 00:00 Blood Pressure 201/74 02/21/22 00:00 Pulse Oximetry 96 02/21/22 00:00 Oxygen Delivery Me thod 02/20/22 20:33 MDM - General Adult Medical Decision Making This patient was brought in by family because of concerns about possible urinary tract infection because she is had odiferous and concentrated urine. No fevers chills or other symptoms. She does have a history of oxygen dependent COPD with is been no change in her oxygen requirements. She does not wear oxygen all the time. She has not had cough or other subjective symptoms. Her work-up initially revealed no evidence of urinary tract infection but did display findings suggestive of clinical volume depletion. Hydration initiated in the emergency department and awaiting CT scan. He had systolic hypertension in the emergency department that is being addressed as well due to the the level of hypertension. It is unclear whether she has been taking her usual antihypertensive. The plan will be to discharge to home unless other findings dictate otherwise. To patient however from Dr. Villafuerte pending CT head CT head was normal she is well-appearing here she is stable for discharge she is to follow-up with her PCP return if worsening. Lab Data : 02/20/22 21:25 02/20/22: Radiology Impressions Chest X-Ray 02/20/22 21:42 IMPRESSION: No acute findings. Head CT 02/20/22 22:34 IMPRESSION: No acute intracranial abnormality. Laboratory Results WBC 7.5 10^3/uL (4.0-10.0) 02/20/22: RBC 4.22 10^6/uL (4.1-5.3) 02/20/22: Hgb 11.8 g/dL (11.5-15.3) 02/20/22: Hct 36.4 % (37.0-47.0) L 02/20/22: MCV 86.3 fl (81-99) 02/20/22: MCH 28.0 pg (28.0-34.0) 02/20/22: MCHC 32.4 g/dL (30.0-36.0) 02/20/22: RDW 15.1 % (12.1-15.1) 02/20/22: Plt Count 256 10^3/cmm (130-400) 02/20/22: MPV 11.5 fL (7.4-10.4) H 02/20/22: Neut % (Auto) 77.5 % 02/20/22: Lymph % (Auto) 9.0 % 11/02/22 21:25 [place] % (Auto) 9.9 % 02/20/22 21:25 Eos % (Auto) 2.7 % 02/20/22 21:25 Baso % (Auto) 0.5 % 02/20/22 21:25 Neut # (Auto) 5.79 10^3/uL (1.8-7.7) 02/20/22 21: Lymph # (Auto) 0.7 10^3/uL (0.8-4.8) L 02/20/22 21:25 [place] # (Auto) 0.7 10^3/uL (0.2-0.9) 02/20/22 21: Eos # (Auto) 0.2 10^3/uL (0.0-0.8) 02/20/22: Baso # (Auto) 0.0 10^3/uL (0.0-0.1) 02/20/22 21: Nucleated RBC % (auto) 0 % 02/20/22: Nucleated RBCs # 0.0 /100WBC 02/20/22 21:25 Sodium 128 mmol/L (136-145) L 02/20/22 21:25 Potassium 3.8 mmol/L (3.5-5.1) 02/20/22 21:25 Chloride 88 mmol/L (98-107) L 02/20/22 21:25 Carbon Dioxide 28 mmol/L (22-29) 02/20/22 21:25 Anion Gap 15.8 (5-19) 02/20/22 21:25 BUN 16 mg/dL (8-23) 02/20/22 21:25 Creatinine 1.3 mg/dL (0.5-0.9) H 02/20/22 21:25 GFR Calculation Not Reportable 02/20/22 21:25 Glucose 106 mg/dL (65-115) 02/20/22 21:25 Calculated Osmolality 268 mOsm/kg (285-295) L 02/20/22:25 Calcium 9.5 mg/dL (8.5-10.5) 02/20/22 21:25 Total Bilirubin 0.3 mg/dL (0.15-1.2) 02/20/22 21:25 AST 16 U/L (0-32) 02/20/22 21:25 ALT 13 U/L (0-33) 02/20/22 21:25 Alkaline Phosphatase 108 U/L (35-105) H 02/20/22 21:25 Total Protein 7.8 g/dL (6.6-8.7) 02/20/22 21:25 Albumin 4.1 g/dL (3.5-5.2) 02/20/22 21:25 Globulin 3.7 g/dL (1.3-4.6) 02/20/22 21:25 Urine Color Yellow (Yellow) 02/20/22 21:54 Urine Appearance Clear (CLEAR) 02/20/22 21:54 Urine pH 7 (5-7) 02/20/22 21:54 Ur Specific [place] 1.010 (1.005-1.030) 02/20/22 21:54 Urine Protein 1+ (Negative) H 02/20/22 21:54 Urine Glucose (UA) Norm (Normal) 02/20/22 21:54 Urine Ketones Negative (Negative) 02/20/22 21:54 Urine Blood Neg (Negative) 02/20/22 21:54 Urine Nitrate Negative (Negative) 02/20/22 21:54 Urine Bilirubin Neg (Negative) 02/20/22 21:54 Urine Urobilinogen Norm mg/dL (Negative) 02/20/22 21:54 Ur Leukocyte Esterase Negative (Negative) 02/20/22 21:54 Urine RBC None /hpf (0-2) 02/20/22 21:54 Urine WBC None /hpf (0-5) 02/20/22 21:54 Ur Squamous Epith Cells None /hpf (0-5) 02/20/22 21:54 Ur Transition Epith Cell 0-4 /hpf 02/20/22 21:54 Amorphous Sediment Not Reportable 02/20/22 21:54 Urine Bacteria None /hpf (NONE) 02/20/22 21:54 EKG Data EKG 1: Computer generated interpretation: Chest X-Ray 02/20/22 21:42 IMPRESSION: No acute findings. Head CT 02/20/22 22:34 IMPRESSION: No acute intracranial abnormality. Discharge Plan Discharge Patient Disposition: Home Clinical Impression: Pharyngitis, Chronic hypertension, COPD (chronic obstructive pulmonary disease), Fluid volume depletion Condition: Stable Prescriptions: No Action Anoro Ellipta 62.5-25 mcg/actuation blister with device 1 inh inhalation DAILY melatonin 5 mg tablet 2.5 mg PO BEDTIME Anoro Ellipta 62.5 mcg/25 mcg 1 puff inhalation BID lisinopril 20 mg tablet 20 mg PO DAILY@0900 felodipine 5 mg tablet extended release 24 hr 5 mg PO BID@0900,2300 lovastatin 40 mg tablet 40 mg PO BEDTIME@2330 clopidogrel 75 mg tablet 75 mg PO BEDTIME@2330 aspirin 81 mg Tablet,Delayed Release (Dr/Ec) 81 mg PO DAILY@2330 propranolol 40 mg tablet See Rx Instructions .ROUTE .COMPLEX Rx Instructions: 40 mg orally TAKE 2 TABS AT 0900 AND 1 TAB AT 2330 citalopram 20 mg tablet 20 mg PO BEDTIME@2330 amitriptyline 25 mg tablet 25 mg PO BEDTIME@2330 meclizine 25 mg tablet 25 mg PO TID PRN (Reason: Dizziness) buspirone 10 mg tablet 10 mg PO BID PRN (Reason: UNKNOWN) omeprazole 20 mg capsule,delayed release(DR/EC) 20 mg PO DAILY@0900 montelukast 10 mg tablet 10 mg PO BEDTIME@2330 albuterol sulfate [Ventolin HFA] 90 mcg/actuation HFA aerosol inhaler 2 puff inhalation Q6H PRN (Reason: Shortness Of Breath) oxybutynin chloride 5 mg tablet 5 mg PO BID@0900,2330 Discharge Orders: Discharge ED (Routine); Ordered 02/20/22 Ordered By: Yazmin Chahal Referrals: Pedro Venegas [Primary Care Provider] - Discharge Diet: Advance as tolerated Discharge Activity: Resume usual activity Patient Instructions: COPD (Chronic Obstructive Pulmonary Disease) (ED) Coding Level of Care Code ED Logistics Management Specialist for [place] Fwd Exam Comprehensive
--- NOTE | 2022-02-20 21:47 | ECG_ITS ---
[facility] Test Date: 2022-02-20 Pat Name: Maria Isabel Ho Department: Room: Gender: Female Credit Correspondence Clerk: : 1945 Requested By: Joselito Villafuerte Order Number: [id number] Bibiana MD: Jose Turner M.D. Measurements Intervals [place] Rate: 65 P: 64 [place]: 164 QRS: 50 QRSD: 79 T: 99 QT: 399 QTc: 415 Interpretive Statements SINUS RHYTHM POSSIBLE LEFT ATRIAL ENLARGEMENT [-0.1mV P-WAVE IN V1/V2] LEFT VENTRICULAR HYPERTROPHY AND ST-T CHANGE [VOLTAGE CRITERIA PLUS ST/T ABNORMALITY] Compared to ECG 05/06/2020 17:34:01 Left ventricular hypertrophy now present ST (T wave) deviation now present T-wave abnormality no longer present Possible ischemia no longer present Electronically Signed On 02-21-2022 15:02:31 CDT by Jose Turner M.D. [id number]
[2022-02-20 22:03] LABS: Alanine Aminotransferase 13 U/L (0-33); Albumin Level 4.1 g/dL (3.5-5.2); Alkaline Phosphatase 108 U/L (35-105); Anion Gap 15.8 (5-19); Aspartate Amino Transferase 16 U/L (0-32); Blood Urea Nitrogen 16 mg/dL (8-23); Calcium 9.5 mg/dL (8.5-10.5); Carbon Dioxide 28 mmol/L (22-29); Chloride 88 mmol/L (98-107); Globulin 3.7 g/dL (1.3-4.6); Glucose 106 mg/dL (65-115); Osmolality Calculated 268 mOsm/kg (285-295); Potassium 3.8 mmol/L (3.5-5.1); Sodium 128 mmol/L (136-145); Total Bilirubin 0.3 mg/dL (0.15-1.2); Total Protein 7.8 g/dL (6.6-8.7)
[2022-02-20 22:25] LABS: Add Urine Microscopic? YES; Bilirubin Urine Neg (Negative); Blood Urine Neg (Negative); Glucose Urine UA Norm (Normal); Ketones Urine Negative (Negative); Leukocyte Esterase Urine Negative (Negative); Nitrate Urine Negative (Negative); Protein Urine 1+ (Negative); Urine Appearance Clear (CLEAR); Urine Color Yellow (Yellow); Urobilinogen Urine Norm (Negative); pH Urine 7 (5-7)
[2022-02-20 22:26] VITALS: BP 216/87; PULSE 66; RESP 16; O2SAT 99
[2022-02-20 22:26] LABS: Add Urine Culture? No; Transitional Epi Cells Urine 0-4 /hpf
--- NOTE | 2022-02-20 22:34 | CTR_ITS ---
PROCEDURE INFORMATION: Exam: CT Head Without Contrast Exam date and time: 02/20/2022 10:52 PM Age: 76 years old Clinical indication: Altered mental status/memory loss; Confusion or disorientation; Patient HX: Increasing confusion per family TECHNIQUE: Imaging protocol: Computed tomography of the head without contrast. Radiation optimization: All CT scans at this facility use at least one of these dose optimization techniques: automated exposure control; mA and/or kV adjustment per patient size (includes targeted exams where dose is matched to clinical indication); or iterative reconstruction. COMPARISON: CT head wo con* [id number] 05/06/2020 4:12 PM RADIATION DOSE METRICS: Total DLP (mGy-cm): 1689.48 FINDINGS: Brain: There is diffuse cerebral atrophy and chronic microvascular white matter disease. There is no acute intracranial hemorrhage. Cerebral ventricles: There is mild ex vacuo dilation of the lateral ventricles. The basal cisterns are unremarkable. Paranasal sinuses: The paranasal sinuses are clear. Mastoid air cells: The mastoid air cells are clear. Bones/joints: The calvarium is intact. Soft tissues: The visible extracranial soft tissues are unremarkable. CT/CT head wo con* [id number] IMPRESSION: No acute intracranial abnormality.
[2022-02-20 22:42] VITALS: BP 210/75
[2022-02-20] MEDS: cloNIDine 0.1 mg Tablet PO (22:42)
[2022-02-21] VITALS: BP 201/74; PULSE 74; RESP 19; O2SAT 96
== END 2022-02-21 00:03 | disposition home or self-care (01) ==
PROVIDERS: Emergency Medicine; Emergency Provider Emergency Medicine; PCP Physician Assistant Medical
DX: J02.9 Acute pharyngitis, unspecified (principal); I10 Essential (primary) hypertension; J44.9 Chronic obstructive pulmonary disease, unspecified; E86.9 Volume depletion, unspecified; Z79.02 Long term (current) use of antithrombotics/antiplatelets; Z79.82 Long term (current) use of aspirin; F17.210 Nicotine dependence, cigarettes, uncomplicated; E78.5 Hyperlipidemia, unspecified; E11.9 Type 2 diabetes mellitus without complications
CPT/HCPCS: 70450; 71045; 80053; 81001; 85025; 93005; 96360; 99285; J7030

== ENCOUNTER 2022-03-01 14:23 | Inpatient (IN) | payer MEDICARE, MEDICAID, SELFPAY ==
[2022-03-01 14:44] VITALS: BP 167/69; PULSE 59; RESP 24; TEMP 36.4; O2SAT 96; BMI 21.6
--- NOTE | 2022-03-01 17:08 | ECG_ITS ---
[facility] Test Date: 2022-03-01 Pat Name: Maria Isabel Ho Department: Room: Gender: Female Solicitor Patent: : 1945 Requested By: Remi Allison Order Number: [id number] Bibiana MD: Gris Hughes M.D. Measurements Intervals [place] Rate: 70 P: 77 MD: 146 QRS: 61 QRSD: 77 T: 71 QT: 426 QTc: 462 Interpretive Statements SINUS RHYTHM LEFT ATRIAL ENLARGEMENT [-0.15mV P-WAVE IN V1/V2] MODERATE ST DEPRESSION [0.05+ mV ST DEPRESSION] Compared to ECG 02/20/2022 21:47:33 Left ventricular hypertrophy no longer present ST (T wave) deviation still present Electronically Signed On 03-02-2022 15:08:12 HOUSING DEVELOPMENT SPECIALIST by Gris Hughes M.D. [id number]
[2022-03-01 18:10] LABS: Basophils % 0.4 %; Eosinophils # 0.1 10^3/uL (0.0-0.8); Eosinophils % 1.3 %; Hematocrit 33.5 % (37.0-47.0); Lymphocytes # 0.6 10^3/uL (0.8-4.8); Lymphocytes % 10.9 %; Mean Corpuscular HGB Conc 32.8 g/dL (30.0-36.0); Mean Corpuscular Hemoglobin 28.3 pg (28.0-34.0); Mean Corpuscular Volume 86.1 fl (81-99); Mean Platelet Volume 11.6 fL (7.4-10.4); Monocytes # 0.6 10^3/uL (0.2-0.9); Neutrophils # 4.22 10^3/uL (1.8-7.7); Nucleated Red Blood Cells % 0 %; Platelet Count 251 10^3/cmm (130-400); Red Blood Count 3.89 10^6/uL (4.1-5.3); Red Cell Distribution Width 15.3 % (12.1-15.1); White Blood Count 5.5 10^3/uL (4.0-10.0)
[2022-03-01 18:31] LABS: Alanine Aminotransferase 11 U/L (0-33); Albumin Level 3.8 g/dL (3.5-5.2); Alkaline Phosphatase 93 U/L (35-105); Anion Gap 17.8 (5-19); Aspartate Amino Transferase 20 U/L (0-32); Blood Urea Nitrogen 16 mg/dL (8-23); Calcium 9.2 mg/dL (8.5-10.5); Carbon Dioxide 25 mmol/L (22-29); Chloride 90 mmol/L (98-107); Globulin 3.5 g/dL (1.3-4.6); Glucose 108 mg/dL (65-115); Magnesium 1.7 mg/dL (1.7-2.3); Osmolality Calculated 268 mOsm/kg (285-295); Potassium 4.8 mmol/L (3.5-5.1); Sodium 128 mmol/L (136-145); Total Bilirubin 0.2 mg/dL (0.15-1.2); Total Protein 7.3 g/dL (6.6-8.7)
[2022-03-01 20:27] LABS: Urine Appearance Clear (CLEAR); Urine Color Yellow (Yellow)
[2022-03-01 20:28] LABS: Add Urine Culture? No; Add Urine Microscopic? YES; Bilirubin Urine Neg (Negative); Blood Urine Neg (Negative); Glucose Urine UA Norm (Normal); Ketones Urine Negative (Negative); Leukocyte Esterase Urine Negative (Negative); Nitrate Urine Negative (Negative); Protein Urine 1+ (Negative); Urobilinogen Urine Norm (Negative); WBC Urine 0-4 /hpf (0-5); pH Urine 6 (5-7)
[2022-03-01 20:51] LABS: SARS Covid-2 Antigen negative (Negative)
[2022-03-01 21:00] LABS: Influenza A by IFA Negative (Negative); Influenza B by IFA Negative (Negative)
--- NOTE | 2022-03-01 21:02 | CTR_ITS ---
PROCEDURE INFORMATION: Exam: CT Abdomen And Pelvis With Contrast Exam date and time: 03/01/2022 9:11 PM Age: 76 years old Clinical indication: Abdominal pain; Additional info: Abd pain, diarrhea TECHNIQUE: Imaging protocol: Computed tomography of the abdomen and pelvis with contrast. Radiation optimization: All CT scans at this facility use at least one of these dose optimization techniques: automated exposure control; mA and/or kV adjustment per patient size (includes targeted exams where dose is matched to clinical indication); or iterative reconstruction. Contrast material: OMNIPAQUE 350; Contrast volume: 74 ml; Contrast route: INTRAVENOUS (IV); COMPARISON: CT kidney stone [id number] 05/02/2021 7:48 PM RADIATION DOSE METRICS: Total DLP (mGy-cm): 376.24 FINDINGS: Limitations: Study is mildly limited by patient respiratory motion. Diaphragm: A large hiatal hernia is present. Liver: There is a 16 mm hypodense lesion in the dome of the right lobe of the liver (segment 8) . The appearance is indeterminate on the CT scan. Further evaluation with non urgent liver MRI suggested. Gallbladder and bile ducts: A calcified gallstone is present. There is no gallbladder wall thickening or pericholecystic fluid. The gallbladder is not distended. Pancreas: The pancreas is normal. Spleen: There is a focal 7 mm sized hypodense lesion with density less than 20 Hounsfield units and smooth margins likely benign splenic cyst. No further follow-up is required. Adrenal glands: The adrenal glands are normal. Kidneys and ureters: There are multiple areas of cortical scarring in the left kidney. There is a 3.8 cm sized simple cyst in the upper pole of the left kidney. There are several small benign-appearing simple cysts in the right kidney. There is no evidence of hydronephrosis. There is no stone along the course of either ureter. There are multiple left renal collecting system calcifications. Stomach and bowel: There is no evidence of colitis/diverticulitis. There is no evidence of intestinal obstruction. Appendix: A normal appendix is identified. Intraperitoneal space: There is no evidence of free intraperitoneal fluid. There is no evidence of free intraperitoneal fluid. Vasculature: The aorta demonstrates moderate atherosclerotic calcification. There is mild ectasia of the infrarenal abdominal aorta measuring a maximum of 18 mm. There is atherosclerotic calcification of the celiac artery and its branches and of the superior mesenteric artery without significant stenosis or occlusion. Lymph nodes: There is no evidence of lymphadenopathy. Urinary bladder: Unremarkable as visualized. Reproductive: There is some calcifications within the uterus consistent with calcified fibroids. Bones/joints: The lumbar spine demonstrates moderate degenerative changes at multiple levels. Soft tissues: Unremarkable. CT/CT abdomen pelvis w con* [id number] IMPRESSION: 1. No acute findings in the abdomen pelvis. 2. Indeterminate hepatic lesion. Consider further evaluation with non urgent liver MRI. 3. Small splenic cyst 4. Left nephrolithiasis 5. Atherosclerotic aortic disease. COMMENTS: Consistent with the [employer]'s Incidental Findings Committee white paper (J Am Angely Radiol 2018): Any incidental renal lesion less than 1 cm or classified as too small to characterize, or any incidental cystic renal lesion characterized as simple-appearing, is likely benign. No follow-up imaging is recommended for these lesions per consensus recommendations based on imaging criteria.
--- NOTE | 2022-03-01 21:02 | XRR_ITS ---
PROCEDURE INFORMATION: Exam: XR Chest Exam date and time: 03/01/2022 10:29 PM Age: 76 years old Clinical indication: Shortness of breath; Additional info: Fever, SOB TECHNIQUE: Imaging protocol: Radiologic exam of the chest. Views: 1 view. COMPARISON: CR (CHEST, ) 02/20/2022 10:00 PM FINDINGS: Lungs: Chronic interstitial scarring and changes of emphysema unchanged from previous. No focal consolidation is identified. Pleural spaces: Unremarkable. No pleural effusion. No pneumothorax. Heart/Mediastinum: A moderate hiatal hernia is present. Heart is within normal limits of size. Bones/joints: Unremarkable. XR/XR chest 1V portable [id number] IMPRESSION: Chronic findings. No acute infiltrate.
[2022-03-01] MEDS: iohexol 350 mg/mL 500 mL Btl (per mL) IV (21:15)
[2022-03-01] MEDS: enalaprilat 1.25 mg/mL Inj IVP (21:25)
[2022-03-01 21:34] LABS: NT Pro B Type Natriuretic Pept 1193 pg/mL (0-450)
[2022-03-01 21:54] VITALS: BP 190/90; PULSE 71; RESP 16; O2SAT 97
[2022-03-01 23:02] VITALS: BP 165/69; PULSE 73
[2022-03-02] VITALS (17 sets, daily range): BP systolic 150–188; BP diastolic 53–93; PULSE 54–75; RESP 15–20; TEMP 36.4–36.8; O2SAT 95–99; BMI 21.3
[2022-03-02] MEDS: ipratropium-albuterol 3 mL Neb INHALATION ×7 (00:05→23:41)
[2022-03-02] MEDS: nitroglycerin 1 gm/inch oint Pkt 1.5 INCH TOPICAL (00:45)
[2022-03-02 01:06] LABS: D Dimer 0.83 ug/mIFEU (0-0.59)
--- NOTE | 2022-03-02 01:22 | ED_ITS ---
HPI - Weakness General: Chief complaint: Weakness Stated complaint: generalized weakness Time Seen by Provider: 03/01/22 20:41 Source: patient and family History of Present Illness: 76-year-old female with a history of COPD, respiratory failure, hypertension and peripheral arterial disease. She presents with fever at home, some lethargy, and shortness of breath. She notes that she wears 3 L at night, not all the time. She has had an increased oxygen demand lately. She has had a cough. Her son notes that she has been very weak, not able to get around at home. He notes that at times she has not made sense in the last 24 hours or so. MD Complaint: generalized weakness Onset (ago): day(s) Duration: constant and progressively worsening Location: generalized Migration: none Severity: moderate Relieving factors: none Exacerbating factors: movement and exertion Associated symptoms: Reports confusion, decreased appetite, fever(s), nausea and short of breath; Denies chest pain, chills, melena, diaphoresis, dysuria, headache(s), rash, syncope or vomiting Review of Systems Const: Reports: fever(s); Denies: chills or diaphoresis Eyes: Denies: change in vision ENMT: Denies: throat pain Card: Denies: chest pain or syncope Resp: Reports: dyspnea and non-productive cough GI: Reports: abdominal pain, nausea and diarrhea; Denies: vomiting or melena : Denies: dysuria Neuro: Reports: confusion; Denies: headache(s) PFSH ED PFSH: Medical History Chronic back pain Chronic kidney disease (CKD) COPD (chronic obstructive pulmonary disease) Frequent falls History of hypertension Hx of chest pain Hx of hyperlipidemia Hx of renal calculi Hx of type 2 diabetes mellitus Impaired physical mobility Peripheral vascular disease Postmenopausal Smoker Syncope Family History Grandmother Clotting disorder Brother Cancer Diabetes Stroke Son Chronic kidney disease (CKD) Mother Diabetes Father Stroke Denies family history of CAD (coronary artery disease) Dementia Suicide Anesthesia complication Bleeding disorder Lung disease Social History Smoking and tobacco status: current every day smoker Alcohol intake: never Physical Exam Const: GENERAL APPEARANCE: cooperative, ill appearing and frail appearing HENMT: COMMON NORMALS: normocephalic, atraumatic and Normal external nose present HEAD & SCALP: normocephalic and atraumatic FACE & SINUS: normal facial exam and face symmetric NOSE: Normal external nose present Eye: COMMON NORMALS: Equal, round and reactive pupils present and EOMs intact bilaterally PUPIL: Yes Equal, round and reactive pupils present Neck/C-Spine: GENERAL: Yes trachea midline Chest: CHEST: Yes Symmetrical chest wall rise Resp: EFFORT & INSPECTION: No able to speak in complete sentences and Yes tachypneic AUSCULTATION: wheezes and diminished lung sounds Cardio: COMMON NORMALS: regular rate and regular rhythm RATE: regular rate RHYTHM: regular rhythm GI: COMMON NORMALS: Soft to palpation INSPECTION: Yes abdominal distension PALPATION: Yes Soft to palpation, Yes Tenderness to palpation present (GI) and Yes Guarding due to palpation present (GI) : COMMON NORMALS: Yes no CVA tenderness BLADDER/KIDNEY EXAM: Yes no CVA tenderness Back/Pelvis: COMMON NORMALS: no CVA tenderness Extremity: COMMON NORMALS: no pedal edema Neuro: BERTIN COMA SCALE: document GCS findings [place] coma scale eye opening: Spontaneous Bertin coma scale verbal response: Orientated Bertin coma scale motor response: Obey commands Bertin coma scale total score: 15 S ENSORY EXAM: Yes extremities (intact) Psych: COMMON NORMALS: speech normal SPEECH: Yes normal speech Skin: COMMON NORMALS: no rashes or lesions noted GENERAL SKIN EXAM: no rashes or lesions noted Course Consultations: Consultation #1: Josiah Vital Signs: Vital signs: Vital Signs Temperature 97.5 F L 03/01/22 14:44 Pulse Rate 59 L 03/02/22 00:06 Respiratory Rate 16 03/02/22 00:06 Blood Pressure 165/69 03/02/22 00:00 Pulse Oximetry 99 03/02/22 00:06 Oxygen Delivery Me thod 03/02/22 00:06 Oxygen Flow Rate 2 03/02/22 00:06 MDM - Weakness Medical Decision Making Significant diminished lung sounds on exam. She is nontachycardic. She is hypertensive. She is given IV Vasotec for this as well as nitroglycerin paste which is improved her pressure. Hemoglobin is 11. White blood cell count is 5.5. Creatinine is 1.4. Chest x-ray does not reveal an infiltrate. Her rapid COVID is negative. Abdominal CT done for distention and tenderness with history of diarrhea shows no acute change. We attempted to walk the patient in the ER, and she desaturated to the low 70s with this. She was generally weak as well. She will be admitted for COPD exacerbation viral respiratory PCR swab is pending. Lab Data : 03/01/22 17:44 03/01/22 17:44 Radiology Impressions Abdomen/Pelvis CT 03/01/22 21:02 IMPRESSION: 1. No acute findings in the abdomen pelvis. 2. Indeterminate hepatic lesion. Consider further evaluation with non urgent liver MRI. 3. Small splenic cyst 4. Left nephrolithiasis 5. Atherosclerotic aortic disease. COMMENTS: Consistent with the [employer]'s Incidental Findings Committee white paper (J Am Angely Radiol 2018): Any incidental renal lesion less than 1 cm or classified as too small to characterize, or any incidental cystic renal lesion characterized as simple-appearing, is likely benign. No follow-up imaging is recommended for these lesions per consensus recommendations based on imaging criteria. Chest X-Ray 03/01/22 21:02 IMPRESSION: Chronic findings. No acute infiltrate. Laboratory Results WBC 5.5 10^3/uL (4.0-10.0) 03/01/22 17:44 RBC 3.89 10^6/uL (4.1-5.3) L 03/01/22 17:44 Hgb 11.0 g/dL (11.5-15.3) L 03/01/22 17:44 Hct 33.5 % (37.0-47.0) L 03/01/22 17:44 MCV 86.1 fl (81-99) 03/01/22 17:44 MCH 28.3 pg (28.0-34.0) 03/01/22 17:44 MCHC 32.8 g/dL (30.0-36.0) 03/01/22 17:44 RDW 15.3 % (12.1-15.1) H 03/01/22 17:44 Plt Count 251 10^3/cmm (130-400) 03/01/22 17:44 MPV 11.6 fL (7.4-10.4) H 03/01/22 17:44 Neut % (Auto) 77.0 % 03/01/22 17:44 Lymph % (Auto) 10.9 % 03/01/22 17:44 [place] % (Auto) 10.0 % 03/01/22 17:44 Eos % (Auto) 1.3 % 03/01/22 17:44 Baso % (Auto) 0.4 % 03/01/22 17:44 Neut # (Auto) 4.22 10^3/uL (1.8-7.7) 03/01/22 17:44 Lymph # (Auto) 0.6 10^3/uL (0.8-4.8) L 03/01/22 17:44 [place] # (Auto) 0.6 10^3/uL (0.2-0.9) 03/01/22 17:44 Eos # (Auto) 0.1 10^3/uL (0.0-0.8) 03/01/22 17:44 Baso # (Auto) 0.0 10^3/uL (0.0-0.1) 03/01/22 17:44 Nucleated RBC % (auto) 0 % 03/01/22 17:44 Nucleated RBCs # 0.0 /100WBC 03/01/22 17:44 D-Dimer 0.83 ug/mIFEU (0-0.59) H 03/01/22 17:44 Sodium 128 mmol/L (136-145) L 03/01/22 17:44 Potassium 4.8 mmol/L (3.5-5.1) 03/01/22 17:44 Chloride 90 mmol/L (98-107) L 03/01/22 17:44 Carbon Dioxide 25 mmol/L (22-29) 03/01/22 17:44 Anion Gap 17.8 (5-19) 03/01/22 17:44 BUN 16 mg/dL (8-23) 03/01/22 17:44 Creatinine 1.4 mg/dL (0.5-0.9) H 03/01/22 17:44 GFR Calculation Not Reportable 03/01/22 17:44 Glucose 108 mg/dL (65-115) 03/01/22 17:44 Calculated Osmolality 268 mOsm/kg (285-295) L 03/01/22 17:44 Lactic Acid 1.0 mmol/L (0.5-2.2) 03/01/22 21:52 Calcium 9.2 mg/dL (8.5-10.5) 03/01/22 17:44 Magnesium 1.7 mg/dL (1.7-2.3) 03/01/22 17:44 Total Bilirubin 0.2 mg/dL (0.15-1.2) 03/01/22 17:44 AST 20 U/L (0-32) 03/01/22 17:44 ALT 11 U/L (0-33) 03/01/22 17:44 Alkaline Phosphatase 93 U/L (35-105) 03/01/22 17:44 NT-Pro-B Natriuret Pep 1193 pg/mL (0-450) H 03/01/22 17:44 Total Protein 7.3 g/dL (6.6-8.7) 03/01/22 17:44 Albumin 3.8 g/dL (3.5-5.2) 03/01/22 17:44 Globulin 3.5 g/dL (1.3-4.6) 03/01/22 17:44 Urine Color Yellow (Yellow) 03/01/22 19:27 Urine Appearance Clear (CLEAR) 03/01/22 19:27 Urine pH 6 (5-7) 03/01/22 19:27 Ur Specific [place] 1.010 (1.005-1.030) 03/01/22 19:27 Urine Protein 1+ (Negative) H 03/01/22 19:27 Urine Glucose (UA) Norm (Normal) 03/01/22 19:27 Urine Ketones Negative (Negative) 03/01/22 19:27 Urine Blood Neg (Negative) 03/01/22 19:27 Urine Nitrate Negative (Negative) 03/01/22 19:27 Urine Bilirubin Neg (Negative) 03/01/22 19:27 Urine Urobilinogen Norm mg/dL (Negative) 03/01/22 19:27 Ur Leukocyte Esterase Negative (Negative) 03/01/22 19:27 Urine RBC None /hpf (0-2) 03/01/22 19:27 Urine WBC 0-4 /hpf (0-5) H 03/01/22 19:27 Ur Squamous Epith Cells None /hpf (0-5) 03/01/22 19:27 Amorphous Sediment Not Reportable 03/01/22 19:27 Urine Bacteria None /hpf (NONE) 03/01/22 19:27 Influenza Type A Ag Negative (Negative) 03/01/22 19:20 Influenza Type B Ag Negative (Negative) 03/01/22 19:20 SARS-CoV-2 Ag (Rapid) negative (Negative) 03/01/22 19:20 Discharge Plan Discharge Patient Disposition: Admitted As Inpatient Admit Provider: Santana Fortune Condition: Fair Prescriptions: No Action Anoro Ellipta 62.5-25 mcg/actuation blister with device 1 inh inhalation DAILY melatonin 5 mg tablet 2.5 mg PO BEDTIME Anoro Ellipta 62.5 mcg/25 mcg 1 puff inhalation BID lisinopril 20 mg tablet 20 mg PO DAILY@0900 felodipine 5 mg tablet extended release 24 hr 5 mg PO BID@0900,2300 lovastatin 40 mg tablet 40 mg PO BEDTIME@2330 clopidogrel 75 mg tablet 75 mg PO BEDTIME@2330 aspirin 81 mg Tablet,Delayed Release (Dr/Ec) 81 mg PO DAILY@2330 propranolol 40 mg tablet See Rx Instructions .ROUTE .COMPLEX Rx Instructions: 40 mg orally TAKE 2 TABS AT 0900 AND 1 TAB AT 2330 citalopram 20 mg tablet 20 mg PO BEDTIME@2330 amitriptyline 25 mg tablet 25 mg PO BEDTIME@2330 meclizine 25 mg tablet 25 mg PO TID PRN (Reason: Dizziness) buspirone 10 mg tablet 10 mg PO BID PRN (Reason: UNKNOWN) omeprazole 20 mg capsule,delayed release(DR/EC) 20 mg PO DAILY@0900 montelukast 10 mg tablet 10 mg PO BEDTIME@2330 albuterol sulfate [Ventolin HFA] 90 mcg/actuation HFA aerosol inhaler 2 puff inhalation Q6H PRN (Reason: Shortness Of Breath) oxybutynin chloride 5 mg tablet 5 mg PO BID@0900,2330 Referrals: Pedro Venegas [Primary Care Provider] - 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
--- NOTE | 2022-03-02 02:54 | P.HP_ITS ---
Providers/Chief Complaint Admitting Physician: Santana Fortune Primary Care Provider: Pedro Venegas Chief Complaint: generalized weakness History of Present Illness Pleasant 76-year-old lady with history of COPD, smoking, HTN, HLD, DM2, PVD, CKD, orthostatic hypotension presents to ER for evaluation due to generalized weakness, exertional intolerance, and ER noted desaturating down to 80s on exertion. Reported fever. Has been having to use more oxygen than previously. Previously only at night, currently needing it during the day as well. Has not used nebulizer at home with only slight improvement. In ER saturation 95% on 3 L nasal cannula. Bradycardia, heart rate 59. Here she is afebrile, without leukocytosis. D-dimer 0.83. Appears to have chronic hyponatremia, sodium unchanged from prior at 128. Creatinine 1.4. NT proBNP 1193. EKG with sinus rhythm, left atrial enlargement, moderate ST depression reported, but I see only minimal depression laterally if any. Lactic acid is 1. Magnesium 1.7. Chest x-ray with chronic findings, no acute infiltrate. CT abdomen pelvis done for distention and tenderness with history of diarrhea showed no acute findings, indeterminate hepatic lesion, consider further evaluation with nonemergent liver MRI. Small splenic cyst. Left nephrolithiasis. Atherosclerotic aortic disease. Rapid influenza and rapid COVID-19 negative. UA with 0-4 WBC, 1+ protein. Review of Systems Const: Denies: fever(s), chills, body aches or malaise Eyes: Denies: change in vision, eye discomfort or eye redness ENMT: Denies: throat pain, oral sores or ear or mastoid pain Card: Reports: dyspnea on exertion; Denies: chest pain, edema or pre-syncope Resp: Reports: dyspnea and productive cough; Denies: hemoptysis GI: Reports: diarrhea; Denies: abdominal pain, nausea, vomiting, constipation, hematochezia or melena : Denies: flank pain, urinary frequency or hematuria Musc: Denies: back pain, joint swelling or joint redness Skin/Breast: Denies: rash or new lesions Neuro: Denies: headache(s), numbness in extremities, weakness in extremities, dizziness, confusion or seizure-like activity Endo: Denies: polyuria or polydipsia Mode/Lymph: Denies: easy bleeding or tender lymph nodes All/Imm: Denies: urticaria or tongue swelling Medications/Allergies Home Medications Medication Instructions Recorded Confirmed Last Taken Type albuterol sulfate 90 mcg/actuation 2 puff inhalation Q6H PRN 05/06/20 05/02/21 Unknown History aerosol inhaler (Ventolin HFA) Shortness Of Breath amitriptyline 25 mg tablet 25 mg PO BEDTIME@2330 05/06/20 05/02/21 05/05/20 History aspirin 81 mg tablet,delayed 81 mg PO DAILY@2330 05/06/20 05/02/21 05/05/20 History release buspirone 10 mg tablet 10 mg PO BID PRN UNKNOWN 05/06/20 05/02/21 Unknown History citalopram 20 mg tablet 20 mg PO BEDTIME@2330 05/06/20 05/02/21 05/05/20 History clopidogrel 75 mg tablet 75 mg PO BEDTIME@2330 05/06/20 05/02/21 05/05/20 History felodipine 5 mg tablet,extended 5 mg PO BID@0900,2300 05/06/20 05/02/21 05/05/20 History release 24 hr lisinopril 20 mg tablet 20 mg PO DAILY@0900 05/06/20 05/02/21 05/05/20 History lovastatin 40 mg tablet 40 mg PO BEDTIME@2330 05/06/20 05/02/21 05/05/20 History meclizine 25 mg tablet 25 mg PO TID PRN Dizziness 05/06/20 05/02/21 05/05/20 History montelukast 10 mg tablet 10 mg PO BEDTIME@2330 05/06/20 05/02/21 05/05/20 History omeprazole 20 mg capsule,delayed 20 mg PO DAILY@0900 05/06/20 05/02/21 05/05/20 History release oxybutynin chloride 5 mg tablet 5 mg PO BID@0900,2330 05/06/20 05/02/21 05/05/20 History propranolol 40 mg tablet See Rx Instructions .Route .COMPLEX 05/06/20 05/02/21 05/05/20 History melatonin 5 mg tablet 2.5 mg PO BEDTIME 06/12/20 05/02/21 Unknown History umeclidinium 62.5 mcg-vilanterol 1 inh inhalation DAILY 06/12/20 05/02/21 Unknown History 25 mcg/actuation powdr for inhalation (Anoro Ellipta) Anoro Ellipta 1 puff inhalation BID 05/02/21 05/02/21 Unknown History Allergies Allergy/AdvReac Type Severity Reaction Status Date / Time Penicillins Allergy ALGY-Hives Verified 09/06/20 09:46 tetracycline Allergy ALGY-Hives Verified 09/06/20 09:46 PFSH Acute PFSH: Medical History Chronic back pain Chronic kidney disease (CKD) COPD (chronic obstructive pulmonary disease) Frequent falls History of hypertension Hx of chest pain Hx of hyperlipidemia Hx of renal calculi Hx of type 2 diabetes mellitus Impaired physical mobility Orthostatic hypotension Peripheral vascular disease Postmenopausal Smoker Syncope Surgical History Hx of tubal ligation Family History Grandmother Clotting disorder Brother Cancer Diabetes Stroke Son Chronic kidney disease (CKD) Mother Diabetes Father Stroke Denies family history of CAD (coronary artery disease) Dementia Suicide Anesthesia complication Bleeding disorder Lung disease Social History Smoking and tobacco status: current every day smoker Alcohol intake: never Vitals/I&O/Wt Last Vital Signs Temp 97.7 F 03/02/22 02:03 Pulse 59 L 03/02/22 02:03 Resp 18 03/02/22 02:03 BP 172/69 03/02/22 02:03 Pulse Ox 95 03/02/22 02:03 O2 Del Method 03/02/22 02:03 O2 Flow Rate 3 03/02/22 02:03 Weight last 48 hrs Weight 54.703 kg Weight 55.338 kg Physical Exam Const: COMMON NORMALS: patient oriented x3 and alert GENERAL APPEARANCE: cooperative ORIENTATION/CONSCIOUSNESS: Yes awake HENMT: COMMON NORMALS: oropharynx normal Neck/C-Spine: COMMON NORMALS: no JVD Resp: AUSCULTATION: diminished lung sounds Cardio: COMMON NORMALS: no JVD, regular rhythm, S1 normal heart sound present, S2 normal heart sound present and No murmurs present (Cardio) RHYTHM: regular rhythm HEART SOUNDS: S1 normal heart sound present and S2 normal heart sound present GI: COMMON NORMALS: Normal to inspection, nondistended, normoactive bowel sounds present, Soft to palpation and non-tender PALPATION: Yes Soft to palpation Extremity: COMMON NORMALS: no joint enlargement and no pedal edema Neuro: COMMON NORMALS: patient oriented x3 and moves all extremities SENSORIUM/ORIENTATION: Yes alert Skin: COMMON NORMALS: no rashes or lesions noted GENERAL SKIN EXAM: no rashes or lesions noted Data : 03/01/22 17:44 03/01/22 17:44 Micro: Microbiology 03/01/22 22:07 Blood Culture - Preliminary Blood SPECIMEN COLLECTED 03/01/22 21:52 Blood Culture - Preliminary Blood SPECIMEN COLLECTED A&P Assessment and plan (1) COPD exacerbation: Severe exacerbation of COPD, dyspnea, productive cough. Lungs with low air entry on exam. Increased oxygen requirement, requiring 3 L nasal cannula [id number], previously only at night. D-dimer only minimally abnormal when corrected for age, no chest pain, no unilateral swelling, hemoptysis, or other symptoms suggestive of PE. Monitor for change in symptoms. Continue Solu-Medrol every 6 hours. Empiric antibiotic coverage with ceftriaxone. DuoNebs. Oxygen support, de-escalate as tolerating. Collect sputum culture. (2) Fever: Not entirely clear cause of fever. May be secondary to unidentified yet viral illness triggering also COPD exacerbation. Respiratory viral panel requested. Otherwise no suggestion of UTI on UA. Reported diarrhea, but CT abdomen pelvis nonacute possible hepatic lesion. Obtain C. difficile. Follow-up blood culture. (3) Exertional dyspnea: Suspect secondary to COPD exacerbation. NT proBNP is abnormal, suspect secondary to lung disease. She otherwise does not have chest pain or pressure. Consider additional work-up in case developing symptoms of CHF which are not currently evident. Echocardiogram in July 2020 with normal ejection fraction, grade 1 diastolic dysfunction. Otherwise unremarkable. Stress test in March 2020 normal. Exertional intolerance. Deconditioning. Up with assist. PT evaluation. Check orthostatics. (4) Diarrhea: Reported diarrhea, check C. difficile. (5) Hepatic lesion: Incidentally noted on CT abdomen pelvis hepatic lesion 16 mm in size, hypodense in the right lobe of the liver. Consider nonemergent follow-up with MRI. Should follow-up with PCP. (6) Smoking addiction: Discussed with her smoking cessation for 5 minutes. She has not considered quitting previously, states considering perhaps it may be too late. Discussed with her and she states her goals of care are not for comfort care or hospice care just yet. Thus encouraged her to quit smoking to prevent further deterioration of lung condition as well as other complications. She verbalized understanding. Nicotine replacement for cravings. Continue to reinforce cessation. Plan Hypomagnesemia: Replace, follow-up. Rash/lesions on right shoulder. Multiple irregularly shaped shallow ulcerations on the right shoulder, variable stages of healing, 1-2 cm in size. No active blisters. States it has been in place for several weeks to months. She has seen her PCP about it, but states has not seen a x ray technologist. Consider dermatology follow-up. Currently does not appear to have any fresh lesions. Consideration for SJS currently would be low, but monitor for any change in symptoms or lesions, mucosal lesions, etc. Incidentally noted splenic cyst Incidentally noted left renal cyst Left nephrolithiasis CKD: Creatinine appears at baseline Frequent falls HTN HLD DM2: Currently on steroid as well. Add SSI Orthostatic hypotension PAD Other chronic problems noted. Attestations Medical Necessity Statement*: Admission of over 2 midnights anticipated for assessment of management of severe exacerbation of COPD, fever, diarrhea, severe exertional intolerance. 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
[2022-03-02] MEDS: cefTRIAXone 1,000 MG in sodium chloride 0.9% (plus) 50 ML 100 MG IV (03:36)
[2022-03-02] MEDS: magnesium sulfate premix 2 GM/50 ML PIGGYBACK IV (03:37)
[2022-03-02] MEDS: heparin 5,000 unit/mL INJ 1 mL 5000 UNIT SUBCUT ×2 (03:37→15:51)
[2022-03-02 06:04] LABS: Glucose Point of Care 174 mg/dL (70-110)
[2022-03-02] MEDS: propranolol 40 mg Tablet 80 MG PO (10:03)
[2022-03-02] MEDS: insulin lispro 100 unit/1 mL SUBCUT ×4 (10:03→21:04)
[2022-03-02] MEDS: oxybutynin 5 mg Tablet PO ×2 (10:03→22:07)
[2022-03-02] MEDS: pantoprazole DR 40 mg Tablet PO (10:03)
[2022-03-02] MEDS: nicotine 14 mg Patch 1 PATCH TRANSDERMA (10:04)
--- NOTE | 2022-03-02 10:15 | PC.NURSE ---
Incident: This nurse smelled smoke in the hallway, close to pts room. Upon investigation into the pts room this nurse and kiln charger discovered pt actively smoking. O2 turned off immediately and cigarettes/harness maker confiscated. Education on oxygen saftey given to pt and cigarettes/harness maker locked in [facility].
[2022-03-02 11:42] LABS: Glucose Point of Care 250 mg/dL (70-110)
--- NOTE | 2022-03-02 12:44 | PM.MISC ---
Miscellaneous Note Note: seen this am pt attempted to smoke in her patient room with oxygen nc on her face RN and myself counselled patient regarding that Pt offered nicotine patch she feels slightly better but still short of breath she says she wants to smoke rest of mgmt as per HnP document
--- NOTE | 2022-03-02 15:54 | PC.NURSE ---
Patient given to this nurse at 1554. Solu-medrol was not given due to previous nurse was VISUAL SPECIALIST.
[2022-03-02 17:27] LABS: Glucose Point of Care 188 mg/dL (70-110)
[2022-03-02 20:06] LABS: Glucose Point of Care 194 mg/dL (70-110)
[2022-03-02] MEDS: amitriptyline 25 mg Tablet PO (22:07)
[2022-03-02] MEDS: montelukast sodium 10 mg Tablet PO (22:07)
[2022-03-02] MEDS: propranolol 40 mg Tablet PO (22:07)
[2022-03-02] MEDS: atorvastatin 40 mg Tablet 20 MG PO (22:08)
[2022-03-02] MEDS: aspirin 81 mg EC Tablet PO (22:08)
[2022-03-02] MEDS: citalopram 20 mg Tablet PO (22:08)
[2022-03-02] MEDS: clopidogrel 75 mg Tablet PO (22:08)
[2022-03-03] VITALS (13 sets, daily range): BP systolic 129–195; BP diastolic 61–75; PULSE 62–78; RESP 16–20; TEMP 36.3–36.6; O2SAT 93–99
[2022-03-03] MEDS: heparin 5,000 unit/mL INJ 1 mL 5000 UNIT SUBCUT ×2 (02:41→15:55)
[2022-03-03] MEDS: cefTRIAXone 1,000 MG in sodium chloride 0.9% (plus) 50 ML 100 MG IV (02:41)
[2022-03-03 05:09] LABS: Adenovirus Not Detected (NOT DETECT); Chlamydia Pneumoniae Not Detected (NOT DETECT); Coronavirus 229E,HKU1,NL63,OC4 Not Detected (NOT DETECT); Human Metapneumovirus Not Detected (NOT DETECT); Human Rhinovirus/Enterovirus Not Detected (NOT DETECT); Influenza A Not Detected (NOT DETECT); Influenza A H1 Not Detected (NOT DETECT); Influenza A H1-2009 Not Detected (NOT DETECT); Influenza A H3 Not Detected (NOT DETECT); Influenza B Not Detected (NOT DETECT); Mycoplasma Pneumoniae Not Detected (NOT DETECT); Parainfluenza Virus Type 1 Not Detected (NOT DETECT); Parainfluenza Virus Type 2 Not Detected (NOT DETECT); Parainfluenza Virus Type 3 Not Detected (NOT DETECT); Parainfluenza Virus Type 4 Not Detected (NOT DETECT); Respiratory Syncytial Virus A Not Detected (NOT DETECT); Respiratory Syncytial Virus B Not Detected (NOT DETECT); SARS-COV-2 Not Detected (NOT DETECT)
[2022-03-03 05:25] LABS: Hematocrit 31.6 % (37.0-47.0); Hemoglobin 10.2 g/dL (11.5-15.3); Lymphocytes # 0.5 10^3/uL (0.8-4.8); Lymphocytes % 12.1 %; Mean Corpuscular HGB Conc 32.3 g/dL (30.0-36.0); Mean Corpuscular Hemoglobin 27.7 pg (28.0-34.0); Mean Corpuscular Volume 85.9 fl (81-99); Monocytes # 0.2 10^3/uL (0.2-0.9); Monocytes % 4.6 %; Neutrophils # 3.44 10^3/uL (1.8-7.7); Neutrophils % 83.1 %; Nucleated Red Blood Cells % 0 %; Platelet Count 222 10^3/cmm (130-400); Red Blood Count 3.68 10^6/uL (4.1-5.3); Red Cell Distribution Width 15.2 % (12.1-15.1); White Blood Count 4.1 10^3/uL (4.0-10.0)
[2022-03-03 05:46] LABS: Anion Gap 14.9 (5-19); Blood Urea Nitrogen 15 mg/dL (8-23); Calcium 8.7 mg/dL (8.5-10.5); Carbon Dioxide 25 mmol/L (22-29); Chloride 95 mmol/L (98-107); Glucose 167 mg/dL (65-115); Magnesium 2.1 mg/dL (1.7-2.3); Osmolality Calculated 277 mOsm/kg (285-295); Potassium 3.9 mmol/L (3.5-5.1); Sodium 131 mmol/L (136-145)
[2022-03-03 06:36] LABS: Glucose Point of Care 163 mg/dL (70-110)
[2022-03-03] MEDS: ipratropium-albuterol 3 mL Neb INHALATION ×5 (07:34→23:59)
[2022-03-03] MEDS: insulin lispro 100 unit/1 mL SUBCUT ×3 (08:19→20:42)
[2022-03-03] MEDS: nicotine 14 mg Patch 1 PATCH TRANSDERMA (08:20)
[2022-03-03] MEDS: pantoprazole DR 40 mg Tablet PO (08:20)
[2022-03-03] MEDS: oxybutynin 5 mg Tablet PO ×2 (08:34→21:43)
[2022-03-03] MEDS: propranolol 40 mg Tablet 80 MG PO (08:35)
--- NOTE | 2022-03-03 11:48 | P.PN_ITS ---
Subjective Subjective: feels slightly better says she feels weak is considering SNF Vitals/I&O/Wt Last Vital Signs Temp 97.7 F 03/03/22 08:00 Pulse 62 03/03/22 11:16 Resp 20 H 03/03/22 11:10 BP 195/75 03/03/22 08:00 Pulse Ox 99 03/03/22 11:10 O2 Del Method 03/03/22 11:10 O2 Flow Rate 2 03/03/22 11:10 03/02/22 03/03/22 03/03/22 22:59 06:59 14:59 Intake Total 720 / 1200 50 / 1250 Balance 720 / 1200 50 / 1250 Weight last 48 hrs Weight 54.114 kg Weight 54.703 kg Weight 55.338 kg Physical Exam Narrative: General: Alert oriented x3, patient seen sitting up in bed, on 2L NC, appears ill HEENT: Normocephalic, atraumatic, EOMI, breathing comfortably Cardio: Regular rate rhythm, normal S1-S2, Respiratory: Decreased air entry b/l, mild ronchi and wheezes diffusely throughout lung [place] GI: Abdomen soft, nontender, nondistended, bowel sounds + Behavior: Appropriate and cooperative Extremities:no edema, no cyanosis Data : 03/03/22 04:52 03/03/22 04:52 Micro: Microbiology 03/01/22 22:07 Blood Culture - Preliminary Blood NEGATIVE TO DATE 03/01/22 21:52 Blood Culture - Preliminary Blood NEGATIVE TO DATE A&P Assessment and plan (1) Smoking addiction: (2) Diarrhea: (3) Exertional dyspnea: (4) COPD exacerbation: (5) GIL (acute kidney injury): (6) Hepatic lesion: (7) Peripheral arterial disease with history of revascularization: Plan #COPD exacerbation #Diarrhea #Hepatic lesion #Nicotine dependence #Hypomagnesemia #Rash on right shoulder #CKD #HTN, HLD #DM2 #PAD - Continue solumedrol 40 q8 hours - Continue ceftriaxone and azithromycin - Duoneb q4-6 hr - Check sputum cx - Echo july 2020: normal EF, grade 1 diastolic dysfunction. Stress test in mar 2020 normal - Incidentally noted on CT abdomen pelvis hepatic lesion 16 mm in size, hypodense in the right lobe of the liver. Consider nonemergent follow-up with MRI.? Should follow-up with PCP. -Firer Bisque Kiln on smoking cessation - Continue to f/u with pulm as outpatient. - Rash/lesions on right shoulder.? Multiple irregularly shaped shallow ulcerations on the right shoulder, variable stages of healing, 1-2 cm in size.? No active blisters.? States it has been in place for several weeks to months.? She has seen her PCP about it, but states has not seen a crusher and binder operator.? Consider dermatology follow-up.? Currently does not appear to have any fresh lesions.? Consideration for SJS currently would be low, but monitor for any change in symptoms or lesions, mucosal lesions, etc. - Pt/OT - SSI for BG control Full code DVT PPX: heparin Attestations Medical Necessity Statement*: Admission of over 2 midnights anticipated for assessment of management of severe exacerbation of COPD, fever, diarrhea, severe exertional intolerance. Coding Level of Care Code Acute Tray Drier Operator for Chg Fwd Diagnoses Smoking addiction F17.200 Diarrhea R19.7 Exertional dyspnea R06.09 COPD exacerbation J44.1 GIL (acute kidney injury) N17.9 Hepatic lesion K76.9 Peripheral arterial disease with history of revascularization I73.9; Z98.890
[2022-03-03 11:52] LABS: Glucose Point of Care 236 mg/dL (70-110)
[2022-03-03] MEDS: azithromycin 500 MG in sodium chloride 0.9% 250 ML 250 MG IV (12:14)
[2022-03-03 16:35] LABS: Glucose Point of Care 111 mg/dL (70-110)
[2022-03-03 20:19] LABS: Glucose Point of Care 239 mg/dL (70-110)
[2022-03-03] MEDS: clopidogrel 75 mg Tablet PO (21:44)
[2022-03-03] MEDS: montelukast sodium 10 mg Tablet PO (21:44)
[2022-03-03] MEDS: citalopram 20 mg Tablet PO (21:44)
[2022-03-03] MEDS: atorvastatin 40 mg Tablet 20 MG PO (21:44)
[2022-03-03] MEDS: amitriptyline 25 mg Tablet PO (21:44)
[2022-03-03] MEDS: propranolol 40 mg Tablet PO (21:44)
[2022-03-03] MEDS: aspirin 81 mg EC Tablet PO (21:44)
[2022-03-04] VITALS (11 sets, daily range): BP systolic 171–212; BP diastolic 54–80; PULSE 63–87; RESP 12–18; TEMP 36.3–36.8; O2SAT 95–99
[2022-03-04] MEDS: heparin 5,000 unit/mL INJ 1 mL 5000 UNIT SUBCUT ×2 (01:00→14:39)
[2022-03-04] MEDS: cefTRIAXone 1,000 MG in sodium chloride 0.9% (plus) 50 ML 100 MG IV (01:01)
--- NOTE | 2022-03-04 01:11 | CTR_ITS ---
PROCEDURE INFORMATION: Exam: CT Neck Without Contrast Exam date and time: 03/04/2022 4:31 AM Age: 76 years old Clinical indication: Other: Shob, R/O mass TECHNIQUE: Imaging protocol: Computed tomography of the neck without contrast.The sensitivity and specificity for detection of pathology is decreased due to lack of intravenous contrast. Radiation optimization: All CT scans at this facility use at least one of these dose optimization techniques: automated exposure control; mA and/or kV adjustment per patient size (includes targeted exams where dose is matched to clinical indication); or iterative reconstruction. Other technique: decreased due to lack of intravenous and oral contrast. COMPARISON: CT cervical spin wo con* [id number] 05/06/2020 4:15 PM RADIATION DOSE METRICS: Total DLP (mGy-cm): 202.58 FINDINGS: Pharynx: Unremarkable. No significant tonsillar enlargement. Larynx: Normal epiglottis. Prevertebral and retropharyngeal spaces: Unremarkable. Salivary glands: Normal. Glands are normal in size. Thyroid: No enlarged or calcified nodules. Lymph nodes: No lymphadenopathy. Trachea: Visualized trachea is unremarkable. Lungs: No acute findings. Bones/joints: No acute fracture. Soft tissues: No significant soft tissue swelling. CT/CT neck wo con [id number] IMPRESSION: No acute findings.
--- NOTE | 2022-03-04 01:11 | CTR_ITS ---
PROCEDURE INFORMATION: Exam: CT Head Without Contrast Exam date and time: 03/04/2022 4:28 AM Age: 76 years old Clinical indication: Other: Shob, R/O mass TECHNIQUE: Imaging protocol: Computed tomography of the head without contrast. Radiation optimization: All CT scans at this facility use at least one of these dose optimization techniques: automated exposure control; mA and/or kV adjustment per patient size (includes targeted exams where dose is matched to clinical indication); or iterative reconstruction. COMPARISON: CT head wo con* [id number] 02/20/2022 10:52 PM RADIATION DOSE METRICS: Total DLP (mGy-cm): 1173 FINDINGS: Brain: Diffuse cerebral atrophy. Phipps-white matter differentiation is preserved. Chronic appearing left basal ganglia lacunar infarcts. Periventricular and deep white matter hypodensities compatible with chronic microvascular ischemic changes. No acute intracranial hemorrhage. No midline shift. Cerebral ventricles: No ventriculomegaly. Paranasal sinuses: Visualized sinuses are unremarkable. No fluid levels. Mastoid air cells: No mastoid effusion. Bones/joints: No acute fracture. Soft tissues: Unremarkable. CT/CT head wo con* [id number] IMPRESSION: No acute intracranial abnormality.
[2022-03-04 05:45] LABS: Basophils % 0.1 %; Hematocrit 30.5 % (37.0-47.0); Hemoglobin 9.8 g/dL (11.5-15.3); Lymphocytes # 0.5 10^3/uL (0.8-4.8); Lymphocytes % 5.8 %; Mean Corpuscular HGB Conc 32.1 g/dL (30.0-36.0); Mean Corpuscular Hemoglobin 27.6 pg (28.0-34.0); Mean Corpuscular Volume 85.9 fl (81-99); Mean Platelet Volume 11.4 fL (7.4-10.4); Monocytes # 0.3 10^3/uL (0.2-0.9); Monocytes % 3.3 %; Neutrophils % 90.3 %; Nucleated Red Blood Cells % 0 %; Platelet Count 253 10^3/cmm (130-400); Red Blood Count 3.55 10^6/uL (4.1-5.3); Red Cell Distribution Width 15.2 % (12.1-15.1); White Blood Count 8.5 10^3/uL (4.0-10.0)
[2022-03-04 06:06] LABS: Anion Gap 15.9 (5-19); Blood Urea Nitrogen 25 mg/dL (8-23); Calcium 8.8 mg/dL (8.5-10.5); Carbon Dioxide 25 mmol/L (22-29); Chloride 95 mmol/L (98-107); Glucose 134 mg/dL (65-115); Osmolality Calculated 280 mOsm/kg (285-295); Potassium 3.9 mmol/L (3.5-5.1); Sodium 132 mmol/L (136-145)
[2022-03-04 06:21] LABS: Glucose Point of Care 157 mg/dL (70-110)
[2022-03-04] MEDS: ipratropium-albuterol 3 mL Neb INHALATION ×4 (07:37→23:58)
[2022-03-04] MEDS: nicotine 14 mg Patch 1 PATCH TRANSDERMA (08:38)
[2022-03-04] MEDS: pantoprazole DR 40 mg Tablet PO (08:39)
[2022-03-04] MEDS: propranolol 40 mg Tablet 80 MG PO (08:39)
[2022-03-04] MEDS: oxybutynin 5 mg Tablet PO ×2 (08:40→22:36)
[2022-03-04] MEDS: insulin lispro 100 unit/1 mL SUBCUT ×3 (08:40→21:31)
[2022-03-04 11:33] LABS: Glucose Point of Care 244 mg/dL (70-110)
--- NOTE | 2022-03-04 12:24 | PC.CHAP ---
Pastoral Care Encounter/Spiritual Assessment Type of Contact [] Declined cloth finishing range operator chief visit [] Patient/Family/Request visit [] Outpatient visit [] Follow-up visit [] Physician referral [] Code/Alert [x] Routine visit [] Staff referral [] Actively dying [x [] Out of room [] Palliative care [] [] Receiving care in room [] Pre-surgical visit [] Trauma [] Long length of stay [] ICU visit [] Other: Relational/Emotional Strength [] Patient feels connected with others/family/visitors/staff [] Distress [] Loneliness/isolation [] Abandonment Spirituality of Patient [] Person of Ramya [] Attends Jewish of their Ramya [] Believes in Prayer [] Reads Bible or Taoism materials [] There are Spiritual issues to be addressed Warehouseman Interventions [x] Prayer [] Active listening [] Non-anxious presence [] Spiritual/emotional support [] Crisis/trauma care [] Spiritual counseling [] Bereavement support [] Provided bereavement packet [] Provided Bible/devotional materials [] Provided toy/stuffed animal, coloring book to patient or family member [] Provided Communion [] Anointing/[place] [] Salvation [x] Completed spiritual assessment [] Other: Impact on Illness or Injury [] Angry [] Fearful [] Anxious [] Often cries [] Exhaustion [] Unable to work [] Unable to attend catholic [] Unable to walk/stand [] Unable to read [] Unable to drive [] Unable to eat/drink [] Unable to sleep [] Unable to be with family [] Patient intubated [] Other: Summary Time spent with patient
[2022-03-04] MEDS: azithromycin 500 MG in sodium chloride 0.9% 250 ML 250 MG IV (12:53)
--- NOTE | 2022-03-04 13:35 | PM.PN ---
Subjective Subjective: Patient was seen this morning, she continues to complain of shortness of breath with exertion, and some wheezing, no lightheadedness, dizziness, she is able to sit up into a chair yesterday, Vitals/I&O/Wt Last Vital Signs Temp 97.9 F 03/04/22 12:00 Pulse 63 03/04/22 12:00 Resp 16 03/04/22 12:00 BP 171/63 03/04/22 12:00 Pulse Ox 95 03/04/22 12:00 O2 Del Method 03/04/22 12:00 O2 Flow Rate 2 03/04/22 07:39 03/03/22 03/04/22 03/04/22 22:59 06:59 14:59 Intake Total 360 / 850 50 / 900 960 / 960 Balance 360 / 850 50 / 900 960 / 960 Physical Exam Const: COMMON NORMALS: no acute distress and patient oriented x3 Resp: COMMON NORMALS: normal respiratory effort, No retractions and No use of accessory muscles AUSCULTATION: wheezes Cardio: COMMON NORMALS: regular rate, regular rhythm, S1 normal heart sound present and S2 normal heart sound present RATE: regular rate RHYTHM: regular rhythm HEART SOUNDS: S1 normal heart sound present and S2 normal heart sound present GI: COMMON NORMALS: Normal to inspection, nondistended, normoactive bowel sounds present, non-tender and no masses Extremity: COMMON NORMALS: no pedal edema Neuro: COMMON NORMALS: patient oriented x3 Psych: COMMON NORMALS: mental status grossly normal Data : 03/04/22 05:10 03/04/22 05:10 A&P Assessment and plan (1) Smoking addiction: (2) Diarrhea: (3) Exertional dyspnea: (4) COPD exacerbation: (5) GIL (acute kidney injury): (6) Hepatic lesion: (7) Peripheral arterial disease with history of revascularization: Plan #COPD exacerbation #Diarrhea #Hepatic lesion #Nicotine dependence #Hypomagnesemia #Rash on right shoulder #CKD #HTN, HLD #DM2 #PAD - Continue solumedrol 40 q8 hours - Continue ceftriaxone and azithromycin - Duoneb q4-6 hr - Check sputum cx - Echo july 2020: normal EF, grade 1 diastolic dysfunction. Stress test in mar 2020 normal - Incidentally noted on CT abdomen pelvis hepatic lesion 16 mm in size, hypodense in the right lobe of the liver. Consider nonemergent follow-up with MRI.? Should follow-up with PCP. -Ecological Technical Officer on smoking cessation - Continue to f/u with pulm as outpatient. - Rash/lesions on right shoulder.? Multiple irregularly shaped shallow ulcerations on the right shoulder, variable stages of healing, 1-2 cm in size.? No active blisters.? States it has been in place for several weeks to months.? She has seen her PCP about it, but states has not seen a chef kitchen manager.? Consider dermatology follow-up.? Currently does not appear to have any fresh lesions.? Consideration for SJS currently would be low, but monitor for any change in symptoms or lesions, mucosal lesions, etc. - Pt/OT - SSI for BG control, blood sugars are creeping up, monitor -Hemoglobin 9.8, monitor for now Full code DVT PPX: heparin Attestations Medical Necessity Statement*: Patient requires hospitalization for COPD exacerbation Coding Level of Care Code Acute Credit Rating Inspector for Chg Fwd Diagnoses Smoking addiction F17.200 Diarrhea R19.7 Exertional dyspnea R06.09 COPD exacerbation J44.1 GIL (acute kidney injury) N17.9 Hepatic lesion K76.9 Peripheral arterial disease with history of revascularization I73.9; Z98.890
[2022-03-04 16:46] LABS: Glucose Point of Care 107 mg/dL (70-110)
[2022-03-04 20:20] LABS: Glucose Point of Care 234 mg/dL (70-110)
[2022-03-04] MEDS: aspirin 81 mg EC Tablet PO (22:36)
[2022-03-04] MEDS: atorvastatin 40 mg Tablet 20 MG PO (22:36)
[2022-03-04] MEDS: clopidogrel 75 mg Tablet PO (22:36)
[2022-03-04] MEDS: montelukast sodium 10 mg Tablet PO (22:36)
[2022-03-04] MEDS: propranolol 40 mg Tablet PO (22:36)
[2022-03-04] MEDS: citalopram 20 mg Tablet PO (22:37)
[2022-03-04] MEDS: amitriptyline 25 mg Tablet PO (22:37)
[2022-03-05] VITALS (17 sets, daily range): BP systolic 157–195; BP diastolic 54–72; PULSE 59–72; RESP 12–19; TEMP 36.4–36.7; O2SAT 92–99
[2022-03-05] MEDS: ipratropium-albuterol 3 mL Neb INHALATION ×6 (03:11→23:28)
[2022-03-05] MEDS: cefTRIAXone 1,000 MG in sodium chloride 0.9% (plus) 50 ML 100 MG IV (04:18)
[2022-03-05] MEDS: heparin 5,000 unit/mL INJ 1 mL 5000 UNIT SUBCUT ×2 (04:19→14:35)
[2022-03-05 05:34] LABS: Basophils % 0.1 %; Hematocrit 32.8 % (37.0-47.0); Hemoglobin 10.6 g/dL (11.5-15.3); Lymphocytes # 0.6 10^3/uL (0.8-4.8); Lymphocytes % 8.4 %; Mean Corpuscular HGB Conc 32.3 g/dL (30.0-36.0); Mean Corpuscular Hemoglobin 27.7 pg (28.0-34.0); Mean Corpuscular Volume 85.9 fl (81-99); Mean Platelet Volume 11.6 fL (7.4-10.4); Monocytes # 0.5 10^3/uL (0.2-0.9); Monocytes % 6.3 %; Neutrophils # 6.07 10^3/uL (1.8-7.7); Neutrophils % 84.6 %; Nucleated Red Blood Cells % 0 %; Platelet Count 253 10^3/cmm (130-400); Red Blood Count 3.82 10^6/uL (4.1-5.3); Red Cell Distribution Width 15.4 % (12.1-15.1); White Blood Count 7.2 10^3/uL (4.0-10.0)
[2022-03-05 05:58] LABS: Anion Gap 14.9 (5-19); Blood Urea Nitrogen 31 mg/dL (8-23); Calcium 8.9 mg/dL (8.5-10.5); Carbon Dioxide 25 mmol/L (22-29); Chloride 95 mmol/L (98-107); Glucose 102 mg/dL (65-115); Osmolality Calculated 279 mOsm/kg (285-295); Potassium 3.9 mmol/L (3.5-5.1); Sodium 131 mmol/L (136-145)
[2022-03-05 07:00] LABS: Glucose Point of Care 123 mg/dL (70-110)
[2022-03-05] MEDS: propranolol 40 mg Tablet 80 MG PO ×2 (08:26→22:36)
[2022-03-05] MEDS: oxybutynin 5 mg Tablet PO ×2 (08:27→22:37)
[2022-03-05] MEDS: pantoprazole DR 40 mg Tablet PO (08:27)
[2022-03-05] MEDS: nicotine 14 mg Patch 1 PATCH TRANSDERMA (08:27)
[2022-03-05] MEDS: cloNIDine 0.1 mg Tablet PO ×2 (10:07→20:43)
[2022-03-05] MEDS: azithromycin 250 mg Tablet 500 MG PO (11:19)
[2022-03-05 11:32] LABS: Glucose Point of Care 141 mg/dL (70-110)
--- NOTE | 2022-03-05 11:44 | PM.PN ---
Subjective Subjective: Patient was seen this morning she continues to complain of weakness, shortness of breath, wheezing, she is worried about going home too soon Vitals/I&O/Wt Last Vital Signs Temp 98 F 03/05/22 08:00 Pulse 60 03/05/22 11:38 Resp 19 H 03/05/22 11:38 BP 175/60 03/05/22 10:07 Pulse Ox 98 03/05/22 11:38 O2 Del Method 03/05/22 11:38 O2 Flow Rate 2 03/05/22 11:38 03/04/22 03/05/22 03/05/22 22:59 06:59 14:59 Intake Total 600 / 1810 50 / 1860 240 / 240 Output Total 1000 / 1000 Balance 600 / 1810 50 / 1860 -760 / -760 Physical Exam Const: COMMON NORMALS: no acute distress and patient oriented x3 Resp: COMMON NORMALS: normal respiratory effort, No retractions, No use of accessory muscles and clear to auscultation bilaterally AUSCULTATION: clear to auscultation bilaterally Cardio: COMMON NORMALS: regular rate, regular rhythm, S1 normal heart sound present and S2 normal heart sound present RATE: regular rate RHYTHM: regular rhythm HEART SOUNDS: S1 normal heart sound present and S2 normal heart sound present GI: COMMON NORMALS: Normal to inspection, nondistended, normoactive bowel sounds present and non-tender Extremity: COMMON NORMALS: no pedal edema Neuro: COMMON NORMALS: patient oriented x3 Psych: COMMON NORMALS: mental status grossly normal Data 03/05/22 04:37 03/05/22 04:37 A&P Assessment and plan (1) Smoking addiction: (2) Diarrhea: (3) Exertional dyspnea: (4) COPD exacerbation: (5) GIL (acute kidney injury): (6) Hepatic lesion: (7) Peripheral arterial disease with history of revascularization: Plan #COPD exacerbation #Diarrhea #Hepatic lesion #Nicotine dependence #Hypomagnesemia #Rash on right shoulder #CKD #HTN, HLD #DM2 #PAD - Continue solumedrol 40 q8 hours - Continue ceftriaxone and azithromycin - Duoneb q4-6 hr - Check sputum cx - Echo july 2020: normal EF, grade 1 diastolic dysfunction. Stress test in mar 2020 normal - Incidentally noted on CT abdomen pelvis hepatic lesion 16 mm in size, hypodense in the right lobe of the liver. Consider nonemergent follow-up with MRI.? Should follow-up with PCP. -Sterilization Specialist on smoking cessation - Continue to f/u with pulm as outpatient. - Rash/lesions on right shoulder.? Multiple irregularly shaped shallow ulcerations on the right shoulder, variable stages of healing, 1-2 cm in size.? No active blisters.? States it has been in place for several weeks to months.? She has seen her PCP about it, but states has not seen a boilermaker central steam plant.? Consider dermatology follow-up.? Currently does not appear to have any fresh lesions.? Consideration for SJS currently would be low, but monitor for any change in symptoms or lesions, mucosal lesions, etc. - Pt/OT - SSI for BG control, blood sugars are creeping up, monitor -Hemoglobin 9.8 -Serum sodium 131, monitor Full code DVT PPX: heparin Attestations Medical Necessity Statement*: Patient requires hospitalization for COPD exacerbation Coding Level of Care Code Acute Inspector Machine Cut Glass for Chg Fwd Diagnoses Smoking addiction F17.200 Diarrhea R19.7 Exertional dyspnea R06.09 COPD exacerbation J44.1 GIL (acute kidney injury) N17.9 Hepatic lesion K76.9 Peripheral arterial disease with history of revascularization I73.9; Z98.890
[2022-03-05] MEDS: insulin lispro 100 unit/1 mL SUBCUT ×3 (12:24→20:43)
[2022-03-05] MEDS: hyDRALAzine 10 mg Tablet PO ×2 (16:26→22:37)
[2022-03-05] MEDS: acetaminophen 325 mg Tablet 650 MG PO (16:30)
[2022-03-05] MEDS: BuSPIRONE 10 mg Tablet PO (16:30)
[2022-03-05 17:10] LABS: Glucose Point of Care 151 mg/dL (70-110)
[2022-03-05 20:38] LABS: Glucose Point of Care 191 mg/dL (70-110)
[2022-03-05] MEDS: aspirin 81 mg EC Tablet PO (22:35)
[2022-03-05] MEDS: clopidogrel 75 mg Tablet PO (22:36)
[2022-03-05] MEDS: citalopram 20 mg Tablet PO (22:36)
[2022-03-05] MEDS: montelukast sodium 10 mg Tablet PO (22:36)
[2022-03-05] MEDS: atorvastatin 40 mg Tablet 20 MG PO (22:37)
[2022-03-05] MEDS: amitriptyline 25 mg Tablet PO (22:37)
[2022-03-05] MEDS: propranolol 40 mg Tablet PO (22:38)
[2022-03-06] VITALS (18 sets, daily range): BP systolic 127–182; BP diastolic 56–77; PULSE 57–75; RESP 15–18; TEMP 36.3–36.8; O2SAT 92–98
[2022-03-06] MEDS: ipratropium-albuterol 3 mL Neb INHALATION ×5 (04:05→21:24)
[2022-03-06 06:05] LABS: Hematocrit 32.9 % (37.0-47.0); Hemoglobin 10.7 g/dL (11.5-15.3); Lymphocytes # 0.6 10^3/uL (0.8-4.8); Lymphocytes % 7.7 %; Mean Corpuscular HGB Conc 32.5 g/dL (30.0-36.0); Mean Corpuscular Hemoglobin 27.4 pg (28.0-34.0); Mean Corpuscular Volume 84.1 fl (81-99); Mean Platelet Volume 11.5 fL (7.4-10.4); Monocytes # 0.5 10^3/uL (0.2-0.9); Monocytes % 6.3 %; Neutrophils # 6.24 10^3/uL (1.8-7.7); Neutrophils % 85.3 %; Nucleated Red Blood Cells % 0 %; Platelet Count 272 10^3/cmm (130-400); Red Blood Count 3.91 10^6/uL (4.1-5.3); Red Cell Distribution Width 15.2 % (12.1-15.1); White Blood Count 7.3 10^3/uL (4.0-10.0)
[2022-03-06] MEDS: cefTRIAXone 1,000 MG in sodium chloride 0.9% (plus) 50 ML 100 MG IV (06:25)
[2022-03-06] MEDS: hyDRALAzine 10 mg Tablet PO (06:26)
[2022-03-06] MEDS: heparin 5,000 unit/mL INJ 1 mL 5000 UNIT SUBCUT ×2 (06:26→15:33)
[2022-03-06 06:28] LABS: Anion Gap 17.6 (5-19); Blood Urea Nitrogen 30 mg/dL (8-23); Calcium 8.6 mg/dL (8.5-10.5); Carbon Dioxide 23 mmol/L (22-29); Chloride 96 mmol/L (98-107); Glucose 126 mg/dL (65-115); Magnesium 2.1 mg/dL (1.7-2.3); Osmolality Calculated 282 mOsm/kg (285-295); Potassium 4.6 mmol/L (3.5-5.1); Sodium 132 mmol/L (136-145)
[2022-03-06 06:50] LABS: Glucose Point of Care 136 mg/dL (70-110)
[2022-03-06] MEDS: nicotine 14 mg Patch 1 PATCH TRANSDERMA (09:07)
[2022-03-06] MEDS: pantoprazole DR 40 mg Tablet PO (09:10)
[2022-03-06] MEDS: oxybutynin 5 mg Tablet PO ×2 (09:10→23:27)
[2022-03-06] MEDS: cloNIDine 0.1 mg Tablet PO ×2 (09:10→20:45)
[2022-03-06 11:44] LABS: Glucose Point of Care 226 mg/dL (70-110)
[2022-03-06] MEDS: insulin lispro 100 unit/1 mL SUBCUT (11:56)
[2022-03-06] MEDS: hyDRALAzine 25 mg Tablet PO ×2 (12:13→20:46)
--- NOTE | 2022-03-06 15:51 | P.PN_ITS ---
Subjective Subjective: Patient was seen this morning, I had an extensive discussion with patient's family at bedside yesterday, patient family want to pursue senior care placement this morning, she is doing well, she does tell me that her room is cold but her breathing has improved Vitals/I&O/Wt Last Vital Signs Temp 97.9 F 03/06/22 12:00 Pulse 59 L 03/06/22 15:27 Resp 18 03/06/22 15:24 BP 171/76 03/06/22 12:00 Pulse Ox 97 03/06/22 15:24 O2 Del Method 03/06/22 15:24 O2 Flow Rate 2 03/06/22 15:24 03/06/22 03/06/22 03/06/22 06:59 14:59 22:59 Intake Total 240 / 1080 290 / 290 Output Total 500 / 2650 Balance -260 / -1570 290 / 290 Physical Exam Const: COMMON NORMALS: no acute distress and patient oriented x3 Resp: COMMON NORMALS: normal respiratory effort, No retractions, No use of accessory muscles and clear to auscultation bilaterally AUSCULTATION: clear to auscultation bilaterally Cardio: COMMON NORMALS: regular rate, regular rhythm, S1 normal heart sound present and S2 normal heart sound present RATE: regular rate RHYTHM: regular rhythm HEART SOUNDS: S1 normal heart sound present and S2 normal heart sound present GI: COMMON NORMALS: Normal to inspection, nondistended, normoactive bowel sounds present and non-tender Extremity: COMMON NORMALS: no pedal edema Neuro: COMMON NORMALS: patient oriented x3 Psych: COMMON NORMALS: mental status grossly normal Data 03/06/22 05:32 03/06/22 05:32 Micro: Microbiology 03/04/22 18:45 Gram Stain - Final Sputum - Expectorated Sputum Sputum Culture - Preliminary Yeast species 03/05/22 04:50 C.difficile Toxin B Gene (PCR) - Final Stool Routine Collection A&P Assessment and plan (1) Smoking addiction: (2) Diarrhea: (3) Exertional dyspnea: (4) COPD exacerbation: (5) GIL (acute kidney injury): (6) Hepatic lesion: (7) Peripheral arterial disease with history of revascularization: Plan #COPD exacerbation #Diarrhea #Hepatic lesion #Nicotine dependence #Hypomagnesemia #Rash on right shoulder #CKD #HTN, HLD #DM2 #PAD -De-escalate to prednisone 40 mg p.o. daily -De-escalate antibiotics to cefdinir - Duoneb q4-6 hr - Check sputum cx - Echo july 2020: normal EF, grade 1 diastolic dysfunction. Stress test in mar 2020 normal - Incidentally noted on CT abdomen pelvis hepatic lesion 16 mm in size, hypodense in the right lobe of the liver. Consider nonemergent follow-up with MRI.? Should follow-up with PCP. -Renal Dialysis Technician on smoking cessation - Continue to f/u with pulm as outpatient. - Rash/lesions on right shoulder.? Multiple irregularly shaped shallow ulcerations on the right shoulder, variable stages of healing, 1-2 cm in size.? No active blisters.? States it has been in place for several weeks to months.? She has seen her PCP about it, but states has not seen a comprehensive advisor.? Consi carley dermatology follow-up.? Currently does not appear to have any fresh lesions.? Consideration for SJS currently would be low, but monitor for any change in symptoms or lesions, mucosal lesions, etc. - Pt/OT - SSI for BG control, blood sugars are creeping up, monitor -Hemoglobin 9.8 -Serum sodium 132, monitor -Hypertension has required additional antibiotic treatment including clonidine 0.1 twice daily, hydralazine 25 every 8 hours Full code DVT PPX: heparin Attestations Medical Necessity Statement*: Patient requires hospitalization for COPD exacerbation Coding Level of Care Code Acute Applications Consultant for Chg Fwd Diagnoses Smoking addiction F17.200 Diarrhea R19.7 Exertional dyspnea R06.09 COPD exacerbation J44.1 GIL (acute kidney injury) N17.9 Hepatic lesion K76.9 Peripheral arterial disease with history of revascularization I73.9; Z98.890
[2022-03-06 16:41] LABS: Glucose Point of Care 95 mg/dL (70-110)
[2022-03-06] MEDS: cefdinir 300 MG CAPSULE PO (18:09)
[2022-03-06 21:13] LABS: Glucose Point of Care 153 mg/dL (70-110)
[2022-03-06] MEDS: citalopram 20 mg Tablet PO (23:21)
[2022-03-06] MEDS: propranolol 40 mg Tablet PO (23:27)
[2022-03-06] MEDS: aspirin 81 mg EC Tablet PO (23:27)
[2022-03-06] MEDS: atorvastatin 40 mg Tablet 20 MG PO (23:28)
[2022-03-06] MEDS: amitriptyline 25 mg Tablet PO (23:28)
[2022-03-06] MEDS: montelukast sodium 10 mg Tablet PO (23:28)
[2022-03-06] MEDS: clopidogrel 75 mg Tablet PO (23:28)
[2022-03-07] VITALS (16 sets, daily range): BP systolic 130–185; BP diastolic 55–85; PULSE 56–75; RESP 14–18; TEMP 36.4–36.7; O2SAT 90–100
[2022-03-07] MEDS: ipratropium-albuterol 3 mL Neb INHALATION ×5 (00:16→20:37)
[2022-03-07] MEDS: heparin 5,000 unit/mL INJ 1 mL 5000 UNIT SUBCUT ×2 (03:39→17:17)
[2022-03-07] MEDS: hyDRALAzine 25 mg Tablet PO ×3 (03:39→21:48)
[2022-03-07 05:24] LABS: Basophils % 0.1 %; Eosinophils # 0.1 10^3/uL (0.0-0.8); Eosinophils % 0.7 %; Hematocrit 32.8 % (37.0-47.0); Hemoglobin 10.5 g/dL (11.5-15.3); Lymphocytes # 1.2 10^3/uL (0.8-4.8); Lymphocytes % 13.2 %; Mean Corpuscular Hemoglobin 27.7 pg (28.0-34.0); Mean Corpuscular Volume 86.5 fl (81-99); Mean Platelet Volume 11.3 fL (7.4-10.4); Monocytes # 0.8 10^3/uL (0.2-0.9); Monocytes % 9.4 %; Neutrophils # 6.56 10^3/uL (1.8-7.7); Neutrophils % 75.7 %; Nucleated Red Blood Cells % 0 %; Platelet Count 257 10^3/cmm (130-400); Red Blood Count 3.79 10^6/uL (4.1-5.3); Red Cell Distribution Width 15.3 % (12.1-15.1); White Blood Count 8.7 10^3/uL (4.0-10.0)
[2022-03-07 05:44] LABS: Anion Gap 15.2 (5-19); Blood Urea Nitrogen 36 mg/dL (8-23); Calcium 8.7 mg/dL (8.5-10.5); Carbon Dioxide 22 mmol/L (22-29); Chloride 94 mmol/L (98-107); Glucose 95 mg/dL (65-115); Magnesium 1.9 mg/dL (1.7-2.3); Osmolality Calculated 272 mOsm/kg (285-295); Potassium 4.2 mmol/L (3.5-5.1); Sodium 127 mmol/L (136-145)
[2022-03-07 06:55] LABS: Glucose Point of Care 93 mg/dL (70-110)
--- NOTE | 2022-03-07 10:01 | PM.PN ---
Subjective Subjective: Patient was seen this morning, she is sitting up to side the bed, enjoying breakfast, she has no complaints Vitals/I&O/Wt Last Vital Signs Temp 97.8 F 03/07/22 07:23 Pulse 75 03/07/22 07:23 Resp 17 03/07/22 07:23 BP 134/72 03/07/22 07:23 Pulse Ox 90 03/07/22 07:23 O2 Del Method 03/07/22 07:23 O2 Flow Rate 2 03/07/22 03:38 03/06/22 03/07/22 03/07/22 22:59 06:59 14:59 Intake Total 600 / 1370 480 / 480 Output Total 500 / 500 Balance -500 / 270 600 / 870 480 / 480 Physical Exam Const: COMMON NORMALS: no acute distress and patient oriented x3 Resp: COMMON NORMALS: normal respiratory effort, No retractions, No use of accessory muscles and clear to auscultation bilaterally AUSCULTATION: clear to auscultation bilaterally Cardio: COMMON NORMALS: regular rate, regular rhythm, S1 normal heart sound present and S2 normal heart sound present RATE: regular rate RHYTHM: regular rhythm HEART SOUNDS: S1 normal heart sound present and S2 normal heart sound present GI: COMMON NORMALS: Normal to inspection, nondistended, normoactive bowel sounds present and non-tender Extremity: COMMON NORMALS: no pedal edema Neuro: COMMON NORMALS: patient oriented x3 Psych: COMMON NORMALS: mental status grossly normal Data 03/07/22 05:09 03/07/22 05:09 Micro: Microbiology 03/01/22 22:07 Blood Culture - Final Blood NO GROWTH AFTER 5 DAYS 03/01/22 21:52 Blood Culture - Final Blood NO GROWTH AFTER 5 DAYS 03/04/22 18:45 Gram Stain - Final Sputum - Expectorated Sputum Sputum Culture - Preliminary Yeast species A&P Assessment and plan (1) Smoking addiction: (2) Diarrhea: (3) Exertional dyspnea: (4) COPD exacerbation: (5) GIL (acute kidney injury): (6) Hepatic lesion: (7) Peripheral arterial disease with history of revascularization: Plan #COPD exacerbation #Diarrhea #Hepatic lesion #Nicotine dependence #Hypomagnesemia #Rash on right shoulder #CKD #HTN, HLD #DM2 #PAD -De-escalate to prednisone 40 mg p.o. daily -De-escalate antibiotics to cefdinir - Duoneb q4-6 hr - Check sputum cx - Echo july 2020: normal EF, grade 1 diastolic dysfunction. Stress test in mar 2020 normal - Incidentally noted on CT abdomen pelvis hepatic lesion 16 mm in size, hypodense in the right lobe of the liver. Consider nonemergent follow-up with MRI.? Should follow-up with PCP. -Tin Pot Operator on smoking cessation - Continue to f/u with pulm as outpatient. - Rash/lesions on right shoulder.? Multiple irregularly shaped shallow ulcerations on the right shoulder, variable stages of healing, 1-2 cm in size.? No active blisters.? States it has been in place for several weeks to months.? She has seen her PCP about it, but states has not seen a medical records clerk.? Consider dermatology follow-up.? Currently does not appear to have any fresh lesions.? Consideration for SJS currently would be low, but monitor for any change in symptoms or lesions, mucosal lesions, etc. - Pt/OT - SSI for BG control, blood sugars are creeping up, monitor -Hemoglobin 10.5 monitor -Serum sodium 127, salt tablets -Hypertension has required additional antibiotic treatment including clonidine 0.1 twice daily, hydralazine 25 every 8 hours Full code DVT PPX: heparin Attestations Medical Necessity Statement*: Patient requires hospital mission for COPD exacerbation Coding Level of Care Code Acute Product Delivery Specialist for Chg Fwd Diagnoses Smoking addiction F17.200 Diarrhea R19.7 Exertional dyspnea R06.09 COPD exacerbation J44.1 GIL (acute kidney injury) N17.9 Hepatic lesion K76.9 Peripheral arterial disease with history of revascularization I73.9; Z98.890
[2022-03-07] MEDS: oxybutynin 5 mg Tablet PO ×2 (11:24→23:00)
[2022-03-07] MEDS: propranolol 40 mg Tablet 80 MG PO (11:24)
[2022-03-07] MEDS: pantoprazole DR 40 mg Tablet PO (11:24)
[2022-03-07] MEDS: predniSONE 20 mg Tablet 40 MG PO (11:25)
[2022-03-07] MEDS: sodium chloride 1 gm Tablet PO ×2 (11:25→17:18)
[2022-03-07 11:33] LABS: Glucose Point of Care 188 mg/dL (70-110)
[2022-03-07] MEDS: insulin lispro 100 unit/1 mL SUBCUT ×3 (13:24→22:59)
[2022-03-07] MEDS: cefdinir 300 MG CAPSULE PO (17:18)
[2022-03-07 17:55] LABS: Glucose Point of Care 201 mg/dL (70-110)
[2022-03-07] MEDS: cloNIDine 0.1 mg Tablet PO (21:48)
[2022-03-07 21:54] LABS: Glucose Point of Care 192 mg/dL (70-110)
[2022-03-07] MEDS: amitriptyline 25 mg Tablet PO (23:00)
[2022-03-07] MEDS: propranolol 40 mg Tablet PO (23:00)
[2022-03-07] MEDS: aspirin 81 mg EC Tablet PO (23:00)
[2022-03-07] MEDS: atorvastatin 40 mg Tablet 20 MG PO (23:00)
[2022-03-07] MEDS: montelukast sodium 10 mg Tablet PO (23:00)
[2022-03-07] MEDS: citalopram 20 mg Tablet PO (23:01)
[2022-03-07] MEDS: clopidogrel 75 mg Tablet PO (23:17)
[2022-03-08] VITALS (12 sets, daily range): BP systolic 131–180; BP diastolic 54–72; PULSE 57–63; RESP 16–19; TEMP 36.4–36.7; O2SAT 95–98
[2022-03-08] MEDS: ipratropium-albuterol 3 mL Neb INHALATION ×4 (01:34→11:58)
[2022-03-08] MEDS: heparin 5,000 unit/mL INJ 1 mL 5000 UNIT SUBCUT ×2 (04:39→15:09)
[2022-03-08] MEDS: hyDRALAzine 25 mg Tablet PO ×2 (04:39→12:15)
[2022-03-08 05:26] LABS: Eosinophils % 0.3 %; Hematocrit 30.9 % (37.0-47.0); Hemoglobin 9.9 g/dL (11.5-15.3); Lymphocytes % 15.3 %; Mean Corpuscular Hemoglobin 27.2 pg (28.0-34.0); Mean Corpuscular Volume 84.9 fl (81-99); Mean Platelet Volume 11.3 fL (7.4-10.4); Monocytes # 0.6 10^3/uL (0.2-0.9); Monocytes % 9.8 %; Neutrophils # 4.58 10^3/uL (1.8-7.7); Neutrophils % 73.8 %; Nucleated Red Blood Cells % 0 %; Platelet Count 237 10^3/cmm (130-400); Red Blood Count 3.64 10^6/uL (4.1-5.3); Red Cell Distribution Width 15.2 % (12.1-15.1); White Blood Count 6.2 10^3/uL (4.0-10.0)
[2022-03-08 05:51] LABS: Anion Gap 13.3 (5-19); Blood Urea Nitrogen 31 mg/dL (8-23); Calcium 8.5 mg/dL (8.5-10.5); Carbon Dioxide 24 mmol/L (22-29); Chloride 95 mmol/L (98-107); Glucose 97 mg/dL (65-115); Osmolality Calculated 272 mOsm/kg (285-295); Potassium 4.3 mmol/L (3.5-5.1); Sodium 128 mmol/L (136-145)
[2022-03-08 07:01] LABS: Glucose Point of Care 102 mg/dL (70-110)
[2022-03-08] MEDS: pantoprazole DR 40 mg Tablet PO (09:21)
[2022-03-08] MEDS: nicotine 14 mg Patch 1 PATCH TRANSDERMA (09:21)
[2022-03-08] MEDS: predniSONE 20 mg Tablet 40 MG PO (09:21)
[2022-03-08] MEDS: sodium chloride 1 gm Tablet PO ×2 (09:21→17:22)
[2022-03-08] MEDS: propranolol 40 mg Tablet 80 MG PO (09:21)
[2022-03-08] MEDS: oxybutynin 5 mg Tablet PO (09:52)
[2022-03-08] MEDS: cloNIDine 0.1 mg Tablet PO (09:52)
[2022-03-08] MEDS: cefdinir 300 MG CAPSULE PO ×2 (09:53→17:22)
[2022-03-08 10:51] LABS: Glucose Point of Care 168 mg/dL (70-110)
[2022-03-08] MEDS: insulin lispro 100 unit/1 mL SUBCUT ×2 (12:14→17:22)
--- NOTE | 2022-03-08 14:18 | PM.DCS ---
Discharge Providers Date of Admission: 03/02/22 01:59 Date of Discharge: March 08, 2022 Attending Provider at Admission: Santana Fortune Attending Provider at Discharge: Ruslan Diallo MD Primary Care Provider: Pedro Venegas Diagnoses at Discharge Discharge Diagnosis (1) Smoking addiction: Status: Acute (2) Diarrhea: Status: Acute (3) Exertional dyspnea: Status: Acute (4) COPD exacerbation: Status: Acute (5) GIL (acute kidney injury): Status: Acute (6) Hepatic lesion: Status: Acute (7) Peripheral arterial disease with history of revascularization: Status: Acute Reason for Visit Reason for Visit: generalized weakness Hospital Course Hospital Course Pleasant 76-year-old lady with history of COPD, smoking, HTN, HLD, DM2, PVD, CKD, orthostatic hypotension presents to ER for evaluation due to generalized weakness, exertional intolerance, and ER noted desaturating down to 80s on exertion Patient presents to [facility] for COPD exacerbation, received DuoNeb treatments, steroids, broad-spectrum antibiotic therapy, overall clinically improved. [facility]charge to detention facility on prednisone burst with cefdinir. She was also incidentally noticed to have a Hypodense lesion of her right lobe of the liver, please follow-up with primary care for consideration of MRI of the abdomen. Serum sodium on discharge 128, monitor as outpatient Physical Exam Const: COMMON NORMALS: no acute distress and patient oriented x3 Resp: COMMON NORMALS: normal respiratory effort, No retractions, No use of accessory muscles and clear to auscultation bilaterally AUSCULTATION: clear to auscultation bilaterally Cardio: COMMON NORMALS: regular rate, regular rhythm, S1 normal heart sound present and S2 normal heart sound present RATE: regular rate RHYTHM: regular rhythm HEART SOUNDS: S1 normal heart sound present and S2 normal heart sound present GI: COMMON NORMALS: Normal to inspection, nondistended, normoactive bowel sounds present and non-tender Extremity: COMMON NORMALS: no pedal edema Neuro: COMMON NORMALS: patient oriented x3 Psych: COMMON NORMALS: mental status grossly normal Discharge Data Studies Completed and Pending Completed Studies During Hospitalization Category Date Time Status CT abdomen pelvis w con* [id number] Stat Cat Scan 03/01/22 21:[address] head wo con* [id number] Routine Cat Scan 03/04/22 01:[address] neck wo con [id number] Routine Cat Scan 03/04/22 01:11 Completed XR chest 1V portable [id number] Stat Exams 03/01/22 21:02 Completed Pending at discharge Category Date Time Status Sputum Culture and Gram Stain Routine Lab 03/04/22 18:45 Results Radiology Impressions Abdomen/Pelvis CT 03/01/22 21:02 IMPRESSION: 1. No acute findings in the abdomen pelvis. 2. Indeterminate hepatic lesion. Consider further evaluation with non urgent liver MRI. 3. Small splenic cyst 4. Left nephrolithiasis 5. Atherosclerotic aortic disease. COMMENTS: Consistent with the [employer] [place] [employer]'s Incidental Findings Committee white paper (J Am Angely Radiol 2018): Any incidental renal lesion less than 1 cm or classified as too small to characterize, or any incidental cystic renal lesion characterized as simple-appearing, is likely benign. No follow-up imaging is recommended for these lesions per consensus recommendations based on imaging criteria. Chest X-Ray 03/01/22 21:02 IMPRESSION: Chronic findings. No acute infiltrate. Head CT 03/04/22 01:11 IMPRESSION: No acute intracranial abnormality. Neck CT 03/04/22 01:11 IMPRESSION: No acute findings. Laboratory Results WBC 6.2 10^3/uL (4.0-10.0) 03/08/22 05:15 RBC 3.64 10^6/uL (4.1-5.3) L 03/08/22 05:15 Hgb 9.9 g/dL (11.5-15.3) L 03/08/22 05:15 Hct 30.9 % (37.0-47.0) L 03/08/22 05:15 MCV 84.9 fl (81-99) 03/08/22 05:15 MCH 27.2 pg (28.0-34.0) L 03/08/22 05:15 MCHC 32.0 g/dL (30.0-36.0) 03/08/22 05:15 RDW 15.2 % (12.1-15.1) H 03/08/22 05:15 Plt Count 237 10^3/cmm (130-400) 03/08/22 05:15 MPV 11.3 fL (7.4-10.4) H 03/08/22 05:15 Neut % (Auto) 73.8 % 03/08/22 05:15 Lymph % (Auto) 15.3 % 03/08/22 05:15 Dubois % (Auto) 9.8 % 03/08/22 05:15 Eos % (Auto) 0.3 % 03/08/22 05:15 Baso % (Auto) 0.0 % 03/08/22 05:15 Neut # (Auto) 4.58 10^3/uL (1.8-7.7) 03/08/22 05:15 Lymph # (Auto) 1.0 10^3/uL (0.8-4.8) 03/08/22 05:15 Dubois # (Auto) 0.6 10^3/uL (0.2-0.9) 03/08/22 05:15 Eos # (Auto) 0.0 10^3/uL (0.0-0.8) 03/08/22 05:15 Baso # (Auto) 0.0 10^3/uL (0.0-0.1) 03/08/22 05:15 Nucleated RBC % (auto) 0 % 03/08/22 05:15 Nucleated RBCs # 0.0 /100WBC 03/08/22 05:15 D-Dimer 0.83 ug/mIFEU (0-0.59) H 03/01/22 17:44 Sodium 128 mmol/L (136-145) L 03/08/22 05:15 Potassium 4.3 mmol/L (3.5-5.1) 03/08/22 05:15 Chloride 95 mmol/L (98-107) L 03/08/22 05:15 Carbon Dioxide 24 mmol/L (22-29) 03/08/22 05:15 Anion Gap 13.3 (5-19) 03/08/22 05:15 BUN 31 mg/dL (8-23) H 03/08/22 05:15 Creatinine 1.2 mg/dL (0.5-0.9) H 03/08/22 05:15 GFR Calculation Not Reportable 03/08/22 05:15 Glucose 97 mg/dL (65-115) 03/08/22 05:15 POC Glucose 168 mg/dL (70-110) H 03/08/22 10:42 Calculated Osmolality 272 mOsm/kg (285-295) L 03/08/22 05:15 Lactic Acid 1.0 mmol/L (0.5-2.2) 03/01/22 21:52 Calcium 8.5 mg/dL (8.5-10.5) 03/08/22 05:15 Magnesium 2.0 mg/dL (1.7-2.3) 03/08/22 05:15 Total Bilirubin 0.2 mg/dL (0.15-1.2) 03/01/22 17:44 AST 20 U/L (0-32) 03/01/22 17:44 ALT 11 U/L (0-33) 03/01/22 17:44 Alkaline Phosphatase 93 U/L (35-105) 03/01/22 17:44 NT-Pro-B Natriuret Pep 1193 pg/mL (0-450) H 03/01/22 17:44 Total Protein 7.3 g/dL (6.6-8.7) 03/01/22 17:44 Albumin 3.8 g/dL (3.5-5.2) 03/01/22 17:44 Globulin 3.5 g/dL (1.3-4.6) 03/01/22 17:44 Urine Color Yellow (Yellow) 03/01/22 19:27 Urine Appearance Clear (CLEAR) 03/01/22 19:27 Urine pH 6 (5-7) 03/01/22 19:27 Ur Specific [place] 1.010 (1.005-1.030) 03/01/22 19:27 Urine Protein 1+ (Negative) H 03/01/22 19:27 Urine Glucose (UA) Norm (Normal) 03/01/22 19:27 Urine Ketones Negative (Negative) 03/01/22 19: Urine Blood Neg (Negative) 03/01/22 19:27 Urine Nitrate Negative (Negative) 03/01/22 19:27 Urine Bilirubin Neg (Negative) 03/01/22 19:27 Urine Urobilinogen Norm mg/dL (Negative) 03/01/22 19: Ur Leukocyte Esterase Negative (Negative) 03/01/22 19:27 Urine RBC None /hpf (0-2) 03/01/22 19:27 Urine WBC 0-4 /hpf (0-5) H 03/01/22 19:27 Ur Squamous Epith Cells None /hpf (0-5) 03/01/22 19:27 Amorphous Sediment Not Reportable 03/01/22 19:27 Urine Bacteria None /hpf (NONE) 03/01/22 19:27 Nasal Influ A H1 2009 PCR Not detected (NOT DETECT) 03/03/22 03:00 Adenovirus (PCR) Not detected (NOT DETECT) 03/03/22 03:00 C. pneumoniae DNA (PCR) Not detected (NOT DETECT) 03/03/22 03:00 Coronavirus 229E (PCR) Not detected (NOT DETECT) 03/03/22 03:00 Human Metapneumovir PCR Not detected (NOT DETECT) 03/03/22 03:00 Influenza A (H1) PCR Not detected (NOT DETECT) 03/03/22 03:00 Influenza A (H3) PCR Not detected (NOT DETECT) 03/03/22 03:00 Influenza Type A Ag Negative (Negative) 03/01/22 19:20 Influenza Type A (PCR) Not detected (NOT DETECT) 03/03/22 03:00 Influenza Type B Ag Negative (Negative) 03/01/22 19:20 Influenza Type B (PCR) Not detected (NOT DETECT) 03/03/22 03:00 M. pneumoniae (PCR) Not detected (NOT DETECT) 03/03/22 03:00 Parainfluenza 1 (PCR) Not detected (NOT DETECT) 03/03/22 03:00 Parainfluenza 2 (PCR) Not detected (NOT DETECT) 03/03/22 03:00 Parainfluenza 3 (PCR) Not detected (NOT DETECT) 03/03/22 03:00 Parainfluenza 4 (PCR) Not detected (NOT DETECT) 03/03/22 03:00 RSV Type A (PCR) Not detected (NOT DETECT) 03/03/22 03:00 RSV Type B (PCR) Not detected (NOT DETECT) 03/03/22 03:00 Entero/Rhino (PCR) Not detected (NOT DETECT) 03/03/22 03:00 SARS-CoV-2 (PCR) Not detected (NOT DETECT) 03/03/22 03:00 SARS-CoV-2 Ag (Rapid) negative (Negative) 03/01/22 19:20 Vitals Last Vital Signs Temp 97.5 F L 03/08/22 11:36 Pulse 62 03/08/22 12:00 Resp 16 03/08/22 11:55 BP 163/63 03/08/22 11:36 Pulse Ox 96 03/08/22 11:55 O2 Del Method 03/08/22 11:55 O2 Flow Rate 2 03/08/22 11:55 Discharge Plan Discharge Patient Disposition: Xfer SNF Condition: Stable Prescriptions: New clonidine HCl 0.1 mg Tablet 0.1 mg PO BID@0900,2100 30 Days Qty: 6 0RF cefdinir 300 mg Capsule 300 mg PO BID 3 Days Qty: 6 0RF prednisone 20 mg Tablet 40 mg PO DAILY 3 Days Qty: 6 0RF hydralazine 25 mg Tablet 25 mg PO Q8H 30 Days Qty: 90 0RF sodium chloride 1 gram Tablet 1 g PO BID 3 Days Qty: 6 0RF Continued Anoro Ellipta 62.5-25 mcg/actuation blister with device 1 inh inhalation DAILY melatonin 5 mg tablet 2.5 mg PO BEDTIME felodipine 5 mg tablet extended release 24 hr 5 mg PO BID@0900,2300 lovastatin 40 mg tablet 40 mg PO BEDTIME@2330 clopidogrel 75 mg tablet 75 mg PO BEDTIME@2330 aspirin 81 mg Tablet,Delayed Release (Dr/Ec) 81 mg PO DAILY@2330 propranolol 40 mg tablet See Rx Instructions .ROUTE .COMPLEX Rx Instructions: 40 mg orally TAKE 2 TABS AT 0900 AND 1 TAB AT 2330 citalopram 20 mg tablet 20 mg PO BEDTIME@2330 amitriptyline 25 mg tablet 25 mg PO BEDTIME@2330 meclizine 25 mg tablet 25 mg PO TID PRN (Reason: Dizziness) buspirone 10 mg tablet 10 mg PO BID PRN (Reason: UNKNOWN) omeprazole 20 mg capsule,delayed release(DR/EC) 20 mg PO DAILY@0900 montelukast 10 mg tablet 10 mg PO BEDTIME@2330 albuterol sulfate [Ventolin HFA] 90 mcg/actuation HFA aerosol inhaler 2 puff inhalation Q6H PRN (Reason: Shortness Of Breath) oxybutynin chloride 5 mg tablet 5 mg PO BID@0900,2330 levothyroxine 75 mcg tablet 75 mcg PO DAILY furosemide 20 mg tablet 20 mg PO DAILY Discontinued lisinopril 20 mg tablet See Rx Instructions .ROUTE .COMPLEX Rx Instructions: Take 2 tabs PO in the morning then take 1 tab PO in the evening. hydralazine 10 mg tablet 10 mg PO BID Discharge Orders: Discharge Order (Routine); Ordered 03/08/22 Ordered By: Ruslan Diallo Referrals: [facility] [Outside] Pedro Venegas [Primary Care Provider] - Discharge Diet: Cardiac Discharge Activity: Resume usual activity Patient Instructions: Opioid Safety Discharge Attestations Time Spent in Discharge Care*: less than 30 min Quality Metrics Clinical Quality Measures [ No reported AMI, CVA or VTE this stay] Coding Level of Care Code Acute g [facility] note Diagnoses Smoking addiction F17.200 Diarrhea R19.7 Exertional dyspnea R06.09 COPD exacerbation J44.1 GIL (acute kidney injury) N17.9 Hepatic lesion K76.9 Peripheral arterial disease with history of revascularization I73.9; Z98.890
[2022-03-08 15:07] LABS: SARS Covid-2 Antigen negative (Negative)
[2022-03-08 17:03] LABS: Glucose Point of Care 246 mg/dL (70-110)
--- NOTE | 2022-03-08 21:24 | PC.NURSE ---
Patient was discharged by JESSENIA Rae. Patient left via wheelchair with all personal belongings accompanied by family members.
== END 2022-03-08 19:30 | disposition skilled nursing facility (03) | DRG 191 ==
LOC: ER 03-02 01:22 → MEDSURG 03-02 01:30
PROVIDERS: Emergency Medicine; Internal Medicine; Admitting Provider Internal Medicine; Emergency Provider Emergency Medicine; PCP Physician Assistant Medical; Visit Provider Family Medicine
DX: J44.1 Chronic obstructive pulmonary disease with (acute) exacerbation (principal); E87.1 Hypo-osmolality and hyponatremia; N17.9 Acute kidney failure, unspecified; K76.9 Liver disease, unspecified; E11.51 Type 2 diabetes mellitus with diabetic peripheral angiopathy without gangrene; R53.1 Weakness; R19.7 Diarrhea, unspecified; E11.22 Type 2 diabetes mellitus with diabetic chronic kidney disease; I12.9 Hypertensive chronic kidney disease with stage 1 through stage 4 chronic kidney disease, or unspecified chronic kidney disease; N18.9 Chronic kidney disease, unspecified; E83.42 Hypomagnesemia; L98.9 Disorder of the skin and subcutaneous tissue, unspecified; N20.0 Calculus of kidney; R29.6 Repeated falls; R50.9 Fever, unspecified; E78.5 Hyperlipidemia, unspecified; I95.1 Orthostatic hypotension; F17.200 Nicotine dependence, unspecified, uncomplicated; Z79.82 Long term (current) use of aspirin; Z79.02 Long term (current) use of antithrombotics/antiplatelets
CPT/HCPCS: 36415; 36416; 70450; 70490; 71045; 74177; 80048; 80053; 81001; 82962; 83605; 83735; 83880; 85025; 85378; 87040; 87070; 87106; 87205; 87426; 87486; 87493; 87581; 87633; 87804; 93005; 94640; 94664; 96361; 96372; 96374; 96375; 97110; 97116; 97161; 97530; 99285; J0456; J0696; J1644; J1815; J2920; J2930; J3475; J3490; J7050; J7512; Q0144; Q9967

== ENCOUNTER 2022-04-18 09:44 | Observation (INO) | payer MEDICARE, MEDICAID, SELFPAY ==
[2022-04-18] VITALS (14 sets, daily range): BP systolic 136–202; BP diastolic 54–84; PULSE 56–60; RESP 14–25; TEMP 36.5–36.6; O2SAT 96–100; BMI 19.8
--- NOTE | 2022-04-18 10:14 | CT_ITS ---
WS: [id number] CT HEAD TECHNIQUE: Noncontrast CT of the head obtained from the skullbase to the vertex. CLINICAL INFORMATION: syncope COMPARISON: CT March 04, 2022 DLP: 939.[address] scans at [facility] use at least one of these dose optimization techniques: automated e xposure control; mA and/or kV adjustment per patient size (includes targeted exams where dose is matc hed to clinical indication); or iterative reconstruction. FINDINGS: No evidence of intracranial hemorrhage or mass effect. Ventricular system and basal cisterns are olivo nt. Moderate small vessel changes with advanced parenchymal volume loss. No extra-axial fluid collect ions. No evidence of mass or mass effect. Chronic lacunar infarct LEFT caudate. Intracranial vascular calcification. Paranasal sinuses and mastoid air cells are well aerated. .Normal visualized soft tissues. CT/CT head wo con* [id number] IMPRESSION: 1. No evidence of intracranial hemorrhage or mass effect. 2. Moderate small vessel changes with moderate to advanced parenchymal volume loss worse in the frontal lobes. 3. Chronic lacunar infarct LEFT caudate. 4. Vascular calcification. 5. No acute intracranial findings.
--- NOTE | 2022-04-18 10:14 | ECG_ITS ---
[facility] Test Date: 2022-04-18 Pat Name: Maria Isabel Ho Department: Room: Gender: Female Increment Manager: : 1945 Requested By: Bethany Sargent Order Number: [id number] Bibiana MD: Gris Hughes M.D. Measurements Intervals [place] Rate: 55 P: 76 UT: 166 QRS: 57 QRSD: 71 T: 114 QT: 455 QTc: 437 Interpretive Statements SINUS BRADYCARDIA POSSIBLE LEFT ATRIAL ENLARGEMENT [-0.1mV P-WAVE IN V1/V2] LEFT VENTRICULAR HYPERTROPHY AND ST-T CHANGE [VOLTAGE CRITERIA PLUS ST/T ABNORMALITY] Compared to ECG 03/01/2022 20:49:29 Left ventricular hypertrophy now present Sinus rhythm no longer present ST (T wave) deviation still present Electronically Signed On 04-18-2022 21:09:04 INDUSTRIAL RENDERER by Gris Hughes M.D. [email or web address]
--- NOTE | 2022-04-18 10:15 | XR_ITS ---
WS: [id number] Chest 2 views, 04/18/2022 Clinical Data: syncope, cough Comparison: Portable chest, 03/01/2022 Findings: No nodules, masses or effusions are seen. The heart is normal. The pulmonary vascularity is not increased. No pneumonia or pneumothorax is seen. The aortic arch and descending thoracic aorta s how calcification and tortuosity. There is a moderate hiatal hernia behind the heart. XR/XR chest 2V* [id number] Impression: Atherosclerosis and hiatal hernia.
[2022-04-18 10:21] LABS: Basophils % 0.2 %; Eosinophils # 0.1 10^3/uL (0.0-0.8); Eosinophils % 1.3 %; Hematocrit 30.2 % (37.0-47.0); Hemoglobin 9.5 g/dL (11.5-15.3); Lymphocytes # 0.7 10^3/uL (0.8-4.8); Lymphocytes % 12.9 %; Mean Corpuscular HGB Conc 31.5 g/dL (30.0-36.0); Mean Corpuscular Hemoglobin 26.5 pg (28.0-34.0); Mean Corpuscular Volume 84.1 fl (81-99); Mean Platelet Volume 11.7 fL (7.4-10.4); Monocytes # 0.4 10^3/uL (0.2-0.9); Monocytes % 7.5 %; Neutrophils # 4.33 10^3/uL (1.8-7.7); Neutrophils % 77.7 %; Nucleated Red Blood Cells % 0 %; Platelet Count 192 10^3/cmm (130-400); Red Blood Count 3.59 10^6/uL (4.1-5.3); Red Cell Distribution Width 17.2 % (12.1-15.1); White Blood Count 5.6 10^3/uL (4.0-10.0)
[2022-04-18 10:46] LABS: Alanine Aminotransferase 11 U/L (0-33); Albumin Level 3.3 g/dL (3.5-5.2); Alkaline Phosphatase 88 U/L (35-105); Anion Gap 14.9 (5-19); Aspartate Amino Transferase 17 U/L (0-32); Blood Urea Nitrogen 16 mg/dL (8-23); Calcium 8.8 mg/dL (8.5-10.5); Carbon Dioxide 24 mmol/L (22-29); Chloride 94 mmol/L (98-107); Glucose 195 mg/dL (65-115); Lipase 21 U/L (13-60); Osmolality Calculated 277 mOsm/kg (285-295); Sodium 130 mmol/L (136-145); Total Bilirubin 0.3 mg/dL (0.15-1.2); Total Protein 6.3 g/dL (6.6-8.7)
[2022-04-18 10:47] LABS: Troponin(5th) Baseline 43 ng/L (0-10)
[2022-04-18 10:56] LABS: Potassium 2.9 mmol/L (3.5-5.1)
--- NOTE | 2022-04-18 11:07 | W.ED.SYNCOPE ---
Documented by User: Bethany Sargent, OPERATOR [employer] 04/18/22 14:40 HPI - Syncope General: Chief Complaint: Syncope Stated Complaint: SYNCOPE Time Seen by Provider: 04/18/22 09:57 History of Present Illness: Patient is in today for syncopal episode. She arrives by EMS. She reports that she was sitting up at breakfast and she has not been feeling well for the past 3 days. She reports that she did pass out woke up to a bowel movement in her pants. She states that the past 3 days she has had nausea and vomiting. She does not think she has had a fever. She is really thought that it was flu because that has been going around the jail. She does have COPD and has had a little bit of an increased cough. She does report off-and-on chest pain in her left chest that does not radiate. She does not think that it is associated with shortness of breath. She reports that going out in the cold and deep breathing makes the pain worse. Associated symptoms: Reports abdominal pain (Left lower quadrant and epigastric), chest pain (Chest pressure worse with deep breathing and going in the cold) and nausea; Deny fever(s) or headache(s) Review of Systems Const: Denies: fever(s), chills or body aches ENMT: Reports: nasal congestion; Denies: throat pain or nasal discharge Card: Reports: chest pain (Chest pressure worse with deep breathing and going in the cold) and syncope; Denies: palpitations, irregular heart rhythm or edema Resp: Reports: dyspnea and productive cough (Chronic COPD) GI: Reports: abdominal pain (Left lower quadrant and epigastric), nausea and vomiting : Denies: flank pain, difficulty voiding, dysuria, urinary frequency, urinary urgency or urinary hesitancy Neuro: Denies: headache(s), numbness in extremities, weakness in extremities, sensory changes, lack of coordination or difficulty walking PFSH ED PFSH: Medical History (Updated 04/19/22 @ 06:09 by Adonis Harrison DO) Bradycardia Chronic back pain Chronic hyponatremia Chronic kidney disease (CKD) COPD (chronic obstructive pulmonary disease) Exertional dyspnea Frequent falls History of hypertension Hx of chest pain Hx of hyperlipidemia Hx of renal calculi Hx of type 2 diabetes mellitus Impaired physical mobility Orthostatic hypotension Peripheral vascular disease Postmenopausal Smoker Syncope Surgical History Hx of tubal ligation Family History Grandmother Clotting disorder Brother Cancer Diabetes Stroke Son Chronic kidney disease (CKD) Mother Diabetes Father Stroke Denies family history of CAD (coronary artery disease) Dementia Suicide Anesthesia complication Bleeding disorder Lung disease Social History Smoking and tobacco status: current every day smoker Alcohol intake: never Physical Exam Const: COMMON NORMALS: no acute distress, patient oriented x3 and alert Neck/C-Spine: COMMON NORMALS: no JVD Resp: COMMON NORMALS: normal respiratory effort, No use of accessory muscles and clear to auscultation bilaterally AUSCULTATION: clear to auscultation bilaterally Cardio: COMMON NORMALS: no JVD and regular rhythm RATE: bradycardic RHYTHM: regular rhythm HEART SOUNDS: Murmur heart sound present systolic Location: left sternal border Timing: holo GI: COMMON NORMALS: Normal to inspection, nondistended, normoactive bowel sounds present and Soft to palpation PALPATION: Yes Soft to palpation, Yes Tenderness to palpation present (GI) Details: LLQ and other (Epigastric), No Guarding due to palpation present (GI) and No Rebound tenderness present : COMMON NORMALS: Yes no CVA tenderness BLADDER/KIDNEY EXAM: Yes no CVA tenderness Back/Pelvis: COMMON NORMALS: no CVA tenderness Neuro: COMMON NORMALS: patient oriented x3, CN's II-XII intact bilaterally, moves all extremities and no focal motor deficits SENSORIUM/ORIENTATION: Yes alert Course ED course: 11:00?consulted with Dr. Campos regarding patient elevated troponin, EKG showing ST depression, potassium 2.9. Start patient on Lovenox, aspirin, Nitropaste. Replace potassium. Repeat EKG 1300- pt reports she is pain free 1328- Delta Trop -2.83 Vital Signs: Vital signs: Vital Signs Temperature 97.9 F 04/18/22 19:45 Pulse Rate 58 L 04/19/22 03:40 Respiratory Rate 22 H 04/19/22 03:40 Blood Pressure 176/66 04/19/22 03:40 Pulse Oximetry 98 04/19/22 03:40 Oxygen Delivery Me thod 04/19/22 03:40 Oxygen Flow Rate 3 04/19/22 03:40 MDM - Syncope Lab Data 04/18/22 10:00 04/18/22 10:[address] 04/18/22 10:14 IMPRESSION: 1. No evidence of intracranial hemorrhage or mass effect. 2. Moderate small vessel changes with moderate to advanced parenchymal volume loss worse in the frontal lobes. 3. Chronic lacunar infarct LEFT caudate. 4. Vascular calcification. 5. No acute intracranial findings. Chest X-Ray 04/18/22 10:15 Impression: Atherosclerosis and hiatal hernia. Laboratory Results WBC 5.6 10^3/uL (4.0-10.0) 04/18/22 10:00 RBC 3.59 10^6/uL (4.1-5.3) L 04/18/22 10:00 Hgb 9.5 g/dL (11.5-15.3) L 04/18/22 10:00 Hct 30.2 % (37.0-47.0) L 04/18/22 10:00 MCV 84.1 fl (81-99) 04/18/22 10:00 MCH 26.5 pg (28.0-34.0) L 04/18/22 10:00 MCHC 31.5 g/dL (30.0-36.0) 04/18/22 10:00 RDW 17.2 % (12.1-15.1) H 04/18/22 10:00 Plt Count 192 10^3/cmm (130-400) 04/18/22 10:00 MPV 11.7 fL (7.4-10.4) H 04/18/22 10:00 Neut % (Auto) 77.7 % 04/18/22 10:00 Lymph % (Auto) 12.9 % 04/18/22 10:00 [place] % (Auto) 7.5 % 04/18/22 10:00 Eos % (Auto) 1.3 % 04/18/22 10:00 Baso % (Auto) 0.2 % 04/18/22 10:00 Neut # (Auto) 4.33 10^3/uL (1.8-7.7) 04/18/22 10:00 Lymph # (Auto) 0.7 10^3/uL (0.8-4.8) L 04/18/22 10:00 [place] # (Auto) 0.4 10^3/uL (0.2-0.9) 04/18/22 10:00 Eos # (Auto) 0.1 10^3/uL (0.0-0.8) 04/18/22 10:00 Baso # (Auto) 0.0 10^3/uL (0.0-0.1) 04/18/22 10:00 Nucleated RBC % (auto) 0 % 04/18/22 10:00 Nucleated RBCs # 0.0 /100WBC 04/18/22 10:00 D-Dimer 1.16 ug/mIFEU (0-0.59) H 04/18/22 10:00 Sodium 130 mmol/L (136-145) L 04/18/22 10:00 Potassium 2.9 mmol/L (3.5-5.1) L 04/18/22 10:00 Chloride 94 mmol/L (98-107) L 04/18/22 10:00 Carbon Dioxide 24 mmol/L (22-29) 04/18/22 10:00 Anion Gap 14.9 (5-19) 04/18/22 10:00 BUN 16 mg/dL (8-23) 04/18/22 10:00 Creatinine 1.4 mg/dL (0.5-0.9) H 04/18/22 10:00 GFR Calculation Not Reportable 04/18/22 10:00 Glucose 195 mg/dL (65-115) H 04/18/22 10:00 Calculated Osmolality 277 mOsm/kg (285-295) L 04/18/22 10:00 Calcium 8.8 mg/dL (8.5-10.5) 04/18/22 10:00 Iron 39 ug/dL (37-145) 04/18/22 10:00 TIBC 319 mcg/dl 04/18/22 10:00 % Saturation 12.2 % (20-50) L 04/18/22 10:00 Unsat Iron Binding 280 ug/dL (112-347) 04/18/22 10:00 Total Bilirubin 0.3 mg/dL (0.15-1.2) 04/18/22 10:00 AST 17 U/L (0-32) 04/18/22 10:00 ALT 11 U/L (0-33) 04/18/22 10:00 Alkaline Phosphatase 88 U/L (35-105) 04/18/22 10:00 Troponin T Baseline 43 ng/L (0-10) H 04/18/22 10:00 Troponin T 120 Minute 40.17 ng/L (0-10) H 04/18/22 12:09 Delta Troponin T -2.83 ABS# (0-10) L 04/18/22 12:09 Troponin T Hi Sens 6Hr 41.02 ng/L (0-10) H 04/18/22 16:05 Troponin T Hi Sens 6Hr Delta -1.98 ng/L (0-12) L 04/18/22 16:05 Total Protein 6.3 g/dL (6.6-8.7) L 04/18/22 10:00 Albumin 3.3 g/dL (3.5-5.2) L 04/18/22 10:00 Globulin 3.0 g/dL (1.3-4.6) 04/18/22 10:00 Lipase 21 U/L (13-60) 04/18/22 10:00 Vitamin B12 150 pg/mL (232-1245) L 04/18/22 10:00 Folate 17.6 ng/mL (4.8-37.3) 04/18/22 10:00 Procalcitonin 0.11 ng/mL (0-0.5) 04/18/22 10:00 TSH 3.26 uIU/mL (0.27-4.20) 04/18/22 10:00 Urine Color Dark yellow (Yellow) 04/18/22 14:56 Urine Appearance Cloudy (CLEAR) A 04/18/22 14:56 Urine pH 5 (5-7) 04/18/22 14:56 Ur Specific [place] 1.020 (1.005-1.030) 04/18/22 14:56 Urine Protein 1+ (Negative) H 04/18/22 14:56 Urine Glucose (UA) Norm (Normal) 04/18/22 14:56 Urine Ketones Negative (Negative) 04/18/22 14:56 Urine Blood Neg (Negative) 04/18/22 14:56 Urine Nitrate Negative (Negative) 04/18/22 14:56 Urine Bilirubin 1+ (Negative) H 04/18/22 14:56 Urine Urobilinogen Norm mg/dL (Negative) 04/18/22 14:56 Ur Leukocyte Esterase Trace (Negative) H 04/18/22 14:56 Urine RBC 0-4 /hpf (0-2) H 04/18/22 14:56 Urine WBC 10-15 /hpf (0-5) H 04/18/22 14:56 Ur Squamous Epith Cells 10-15 /hpf (0-5) H 04/18/22 14:56 Amorphous Sediment Not Reportable 04/18/22 14:56 Urine Bacteria 1+ /hpf (NONE) H 04/18/22 14:56 Hyaline Casts 0-4 /lpf H 04/18/22 14:56 Ur Random Sodium 21 mmol/L 04/18/22 14:56 Ur Random Potassium 45 mmol/L 04/18/22 14:56 Ur Random Chloride 15 mmol/L 04/18/22 14:56 Urine Opiates Screen Negative ng/mL (Negative) 04/18/22 14:56 Ur Barbiturates Screen Negative ng/mL (Negative) 04/18/22 14:56 Ur Phencyclidine Scrn Negative ng/mL (Negative) 04/18/22 14:56 Ur Amphetamines Screen Negative ng/mL (Negative) 04/18/22 14:56 U Benzodiazepines Scrn Negative ng/mL (Negative) 04/18/22 14:56 Urine Cocaine Screen Negative ng/mL (Negative) 04/18/22 14:56 U Marijuana (THC) Screen Negative ng/mL (Negative) 04/18/22 14:56 Influenza Type A Ag negative (Negative) 04/18/22 11:45 Influenza Type B Ag negative (Negative) 04/18/22 11:45 Discharge Plan Discharge Patient Disposition: Placed in Observation Admit Provider: Myke Reyes Clinical Impression: Syncope, Peripheral arterial disease with history of revascularization, Chronic kidney disease (CKD), COPD exacerbation, Hypokalemia, Bradycardia, Abnormal ECG Coding Level of Care Code ED Therapeutic Sales Specialist for Chg Fwd Exam Detailed Documented by User: Adonis Harrison DO 04/19/22 06:09 HPI - Syncope General: Chief Complaint: Syncope Stated Complaint: SYNCOPE Time Seen by Provider: 04/18/22 09:57 [facility] ED PFSH: Medical History (Updated 04/19/22 @ 06:09 by Adonis Harrison DO) Bradycardia Chronic back pain Chronic hyponatremia Chronic kidney disease (CKD) COPD (chronic obstructive pulmonary disease) Exertional dyspnea Frequent falls History of hypertension Hx of chest pain Hx of hyperlipidemia Hx of renal calculi Hx of type 2 diabetes mellitus Impaired physical mobility Orthostatic hypotension Peripheral vascular disease Postmenopausal Smoker Syncope Surgical History Hx of tubal ligation Family History Grandmother Clotting disorder Brother Cancer Diabetes Stroke Son Chronic kidney disease (CKD) Mother Diabetes Father Stroke Denies family history of CAD (coronary artery disease) Dementia Suicide Anesthesia complication Bleeding disorder Lung disease Social History Smoking and tobacco status: current every day smoker Alcohol intake: never Course Vital Signs: Vital signs: Vital Signs Temperature 97.9 F 04/18/22 19:45 Pulse Rate 58 L 04/19/22 03:40 Respiratory Rate 22 H 04/19/22 03:40 Blood Pressure 176/66 04/19/22 03:40 Pulse Oximetry 98 04/19/22 03:40 Oxygen Delivery Me thod 04/19/22 03:40 Oxygen Flow Rate 3 04/19/22 03:40 MDM - Syncope Medical Decision Making Patient seen and examined. Findings as documented by midlevel. Exam of patient unremarkable at this time. Concerning and she has had an episode of chest pain and syncopal episode with complete loss consciousness while at rest and she has ST depression in [place]345 and 6. The ST depression actually improved while she was in the emergency room reviewed the EKG with Dr. Allen he agreed that the patient should be admitted for further evaluation. [facility] with the intent to return back to her home. She is agreeable to further cardiac evaluation including angiography. Will admit discussed with hospitalist, orders written. Medical Records I reviewed the patient's medical records. Lab Data I reviewed the patient's lab results. 04/18/22 10:00 04/18/22 10:[address] 04/18/22 10:14 IMPRESSION: 1. No evidence of intracranial hemorrhage or mass effect. 2. Moderate small vessel changes with moderate to advanced parenchymal volume loss worse in the frontal lobes. 3. Chronic lacunar infarct LEFT caudate. 4. Vascular calcification. 5. No acute intracranial findings. Chest X-Ray 04/18/22 10:15 Impression: Atherosclerosis and hiatal hernia. Laboratory Results WBC 5.6 10^3/uL (4.0-10.0) 04/18/22 10:00 RBC 3.59 10^6/uL (4.1-5.3) L 04/18/22 10:00 Hgb 9.5 g/dL (11.5-15.3) L 04/18/22 10:00 Hct 30.2 % (37.0-47.0) L 04/18/22 10:00 MCV 84.1 fl (81-99) 04/18/22 10:00 MCH 26.5 pg (28.0-34.0) L 04/18/22 10:00 MCHC 31.5 g/dL (30.0-36.0) 04/18/22 10:00 RDW 17.2 % (12.1-15.1) H 04/18/22 10:00 Plt Count 192 10^3/cmm (130-400) 04/18/22 10:00 MPV 11.7 fL (7.4-10.4) H 04/18/22 10:00 Neut % (Auto) 77.7 % 04/18/22 10:00 Lymph % (Auto) 12.9 % 04/18/22 10:00 [place] % (Auto) 7.5 % 04/18/22 10:00 Eos % (Auto) 1.3 % 04/18/22 10:00 Baso % (Auto) 0.2 % 04/18/22 10:00 Neut # (Auto) 4.33 10^3/uL (1.8-7.7) 04/18/22 10:00 Lymph # (Auto) 0.7 10^3/uL (0.8-4.8) L 04/18/22 10:00 [place] # (Auto) 0.4 10^3/uL (0.2-0.9) 04/18/22 10:00 Eos # (Auto) 0.1 10^3/uL (0.0-0.8) 04/18/22 10:00 Baso # (Auto) 0.0 10^3/uL (0.0-0.1) 04/18/22 10:00 Nucleated RBC % (auto) 0 % 04/18/22 10:00 Nucleated RBCs # 0.0 /100WBC 04/18/22 10:00 D-Dimer 1.16 ug/mIFEU (0-0.59) H 04/18/22 10:00 Sodium 130 mmol/L (136-145) L 04/18/22 10:00 Potassium 2.9 mmol/L (3.5-5.1) L 04/18/22 10:00 Chloride 94 mmol/L (98-107) L 04/18/22 10:00 Carbon Dioxide 24 mmol/L (22-29) 04/18/22 10:00 Anion Gap 14.9 (5-19) 04/18/22 10:00 BUN 16 mg/dL (8-23) 04/18/22 10:00 Creatinine 1.4 mg/dL (0.5-0.9) H 04/18/22 10:00 GFR Calculation Not Reportable 04/18/22 10:00 Glucose 195 mg/dL (65-115) H 04/18/22 10:00 Calculated Osmolality 277 mOsm/kg (285-295) L 04/18/22 10:00 Calcium 8.8 mg/dL (8.5-10.5) 04/18/22 10:00 Iron 39 ug/dL (37-145) 04/18/22 10:00 TIBC 319 mcg/dl 04/18/22 10:00 % Saturation 12.2 % (20-50) L 04/18/22 10:00 Unsat Iron Binding 280 ug/dL (112-347) 04/18/22 10:00 Total Bilirubin 0.3 mg/dL (0.15-1.2) 04/18/22 10:00 AST 17 U/L (0-32) 04/18/22 10:00 ALT 11 U/L (0-33) 04/18/22 10:00 Alkaline Phosphatase 88 U/L (35-105) 04/18/22 10:00 Troponin T Baseline 43 ng/L (0-10) H 04/18/22 10:00 Troponin T 120 Minute 40.17 ng/L (0-10) H 04/18/22 12:09 Delta Troponin T -2.83 ABS# (0-10) L 04/18/22 12:09 Troponin T Hi Sens 6Hr 41.02 ng/L (0-10) H 04/18/22 16:05 Troponin T Hi Sens 6Hr Delta -1.98 ng/L (0-12) L 04/18/22 16:05 Total Protein 6.3 g/dL (6.6-8.7) L 04/18/22 10:00 Albumin 3.3 g/dL (3.5-5.2) L 04/18/22 10:00 Globulin 3.0 g/dL (1.3-4.6) 04/18/22 10:00 Lipase 21 U/L (13-60) 04/18/22 10:00 Vitamin B12 150 pg/mL (232-1245) L 04/18/22 10:00 Folate 17.6 ng/mL (4.8-37.3) 04/18/22 10:00 Procalcitonin 0.11 ng/mL (0-0.5) 04/18/22 10:00 TSH 3.26 uIU/mL (0.27-4.20) 04/18/22 10:00 Urine Color Dark yellow (Yellow) 04/18/22 14:56 Urine Appearance Cloudy (CLEAR) A 04/18/22 14:56 Urine pH 5 (5-7) 04/18/22 14:56 Ur Specific [place] 1.020 (1.005-1.030) 04/18/22 14:56 Urine Protein 1+ (Negative) H 04/18/22 14:56 Urine Glucose (UA) Norm (Normal) 04/18/22 14:56 Urine Ketones Negative (Negative) 04/18/22 14:56 Urine Blood Neg (Negative) 04/18/22 14:56 Urine Nitrate Negative (Negative) 04/18/22 14:56 Urine Bilirubin 1+ (Negative) H 04/18/22 14:56 Urine Urobilinogen Norm mg/dL (Negative) 04/18/22 14:56 Ur Leukocyte Esterase Trace (Negative) H 04/18/22 14:56 Urine RBC 0-4 /hpf (0-2) H 04/18/22 14:56 Urine WBC 10-15 /hpf (0-5) H 04/18/22 14:56 Ur Squamous Epith Cells 10-15 /hpf (0-5) H 04/18/22 14:56 Amorphous Sediment Not Reportable 04/18/22 14:56 Urine Bacteria 1+ /hpf (NONE) H 04/18/22 14:56 Hyaline Casts 0-4 /lpf H 04/18/22 14:56 Ur Random Sodium 21 mmol/L 04/18/22 14:56 Ur Random Potassium 45 mmol/L 04/18/22 14:56 Ur Random Chloride 15 mmol/L 04/18/22 14:56 Urine Opiates Screen Negative ng/mL (Negative) 04/18/22 14:56 Ur Barbiturates Screen Negative ng/mL (Negative) 04/18/22 14:56 Ur Phencyclidine Scrn Negative ng/mL (Negative) 04/18/22 14:56 Ur Amphetamines Screen Negative ng/mL (Negative) 04/18/22 14:56 U Benzodiazepines Scrn Negative ng/mL (Negative) 04/18/22 14:56 Urine Cocaine Screen Negative ng/mL (Negative) 04/18/22 14:56 U Marijuana (THC) Screen Negative ng/mL (Negative) 04/18/22 14:56 Influenza Type A Ag negative (Negative) 04/18/22 11:45 Influenza Type B Ag negative (Negative) 04/18/22 11:45 Discharge Plan Discharge Patient Disposition: Placed in Observation Admit Provider: Myek Reyes Clinical Impression: Syncope, Peripheral arterial disease with history of revascularization, Chronic kidney disease (CKD), COPD exacerbation, Hypokalemia, Bradycardia, Abnormal ECG Coding Level of Care Code ED Therapeutic Sales Specialist for Chg Fwd Exam Detailed
--- NOTE | 2022-04-18 11:20 | ECG_ITS ---
[facility] Test Date: 2022-04-18 Pat Name: Maria Isabel Ho Department: Room: Gender: Female Instructor Ground Services: : 1945 Requested By: Bethany Sargent Order Number: [id number] Mccarty MD: Raven Pacheco M.D. Measurements Intervals [place] Rate: 56 P: 65 [place]: 173 QRS: 32 QRSD: 72 T: 130 QT: 472 QTc: 459 Interpretive Statements SINUS BRADYCARDIA POSSIBLE LEFT ATRIAL ENLARGEMENT [-0.1mV P-WAVE IN V1/V2] LEFT VENTRICULAR HYPERTROPHY AND ST-T CHANGE [VOLTAGE CRITERIA PLUS ST/T ABNORMALITY] Compared to ECG 04/18/2022 10:14:22 No significant changes Electronically Signed On 04-19-2022 20:40:52 TOBACCO ROLLER by Raven Pacheco M.D. [email or web address] general [id number]
[2022-04-18] MEDS: aspirin 81 mg Chew Tablet 324 MG PO (11:36)
[2022-04-18] MEDS: enoxaparin 60 mg/0.6 mL Syringe 50 MG SUBCUT (11:37)
[2022-04-18] MEDS: nitroglycerin 1 gm/inch oint Pkt 0.5 INCH TOPICAL (11:37)
[2022-04-18] MEDS: potassium chloride ER 20 mEq Tablet 40 MEQ PO (11:37)
[2022-04-18 12:10] LABS: Influenza A by IFA negative (Negative); Influenza B by IFA negative (Negative)
[2022-04-18 13:01] LABS: Troponin 5 2HR 40.17 ng/L (0-10)
[2022-04-18 13:02] LABS: Troponin 5 2HR Delta -2.83 ABS# (0-10)
--- NOTE | 2022-04-18 15:56 | ECG_ITS ---
[facility] Test Date: 2022-04-18 Pat Name: Maria Isabel Ho Department: Room: Gender: Female Expanding Machine Operator: : 1945 Requested By: Bethany Sargent Order Number: [id number] Mccarty MD: Raven Pacheco M.D. Measurements Intervals [place] Rate: 55 P: 70 [place]: 164 QRS: 48 QRSD: 71 T: 80 QT: 467 QTc: 447 Interpretive Statements SINUS BRADYCARDIA POSSIBLE LEFT ATRIAL ENLARGEMENT [-0.1mV P-WAVE IN V1/V2] LEFT VENTRICULAR HYPERTROPHY AND ST-T CHANGE [VOLTAGE CRITERIA PLUS ST/T ABNORMALITY] Compared to ECG 04/18/2022 11:20:15 No significant changes Electronically Signed On 04-19-2022 20:39:45 CAR CHASER by Raven Pacheco M.D. [id number]
--- NOTE | 2022-04-18 15:57 | USCV_ITS ---
Maria Isabel Ho Age: 77 Gender: F : 1945 Exam Date: 04/18/2022 18:37 Ordering Phys: Myke Reyes MD Technologist: ROMINA Exam Location: [facility] [place] Indication: Syncope, long-term smoker BP: 202 / 84 HR: 58 Rhythm: Sinus Technical Quality: Adequate MEASUREMENTS (Male / Female) Normal Values 2D ECHO LV Diastolic Diameter PLAX 3.5 cm 4.2 - 5.9 / 3.9 - 5.3 cm LV Systolic Diameter PLAX 2.1 cm IVS Diastolic Thickness 1.3 cm 0.6 - 1.0 / 0.6 - 0.9 cm IVS Systolic Thickness 1.3 cm LVPW Diastolic Thickness 1.2 cm 0.6 - 1.0 / 0.6 - 0.9 cm LVPW Systolic Thickness 1.3 cm LVOT Diameter 1.8 cm LV Ejection Fraction 2D Teich 71.3 % LV Ejection Fraction MOD 2C 65.2 % LV Ejection Fraction 2C AL 66.3 % LA Diameter 3.6 cm LA Width 3.3 cm LA Height 4.6 cm RA Width 3.1 cm RA Height 3.4 cm Aorta at Sinotubular Diameter 2.2 cm IVC Diameter 0.9 cm M-MODE Aortic Annulus Diameter 2.4 cm LA Ao Ratio MM 1.5 MV E Point Septal Separation 0.3 cm DOPPLER AV Peak Velocity 152.0 cm/s LVOT Peak Velocity 120.0 cm/s AV Area Cont Eq vti 2.1 cm squared AV Area Cont Eq pk 2.0 cm squared MV Area PHT 2.5 cm squared Mitral E to A Ratio 0.8 MV E' Velocity 57.5 cm/s Mitral E to MV E' Ratio 14.9 Mitral E to LV E' Lateral Ratio 15.3 Mitral E to LV E' Septal Ratio 14.7 TR Peak Velocity 276.8 cm/s TR Peak Gradient 30.6 mmHg TV Peak E Velocity 56.0 cm/s Right Atrial Pressure 5.0 mmHg Pulmonary Artery Systolic Pressu 35.6 mmHg PV Peak Velocity 104.0 cm/s RV Acceleration Time 0.2 s RV Ejection Time 0.4 s RV AcT/ET 0.5 FINDINGS Left Ventricle Normal left ventricular size, systolic function and mildly increased wall thickness, with no regional wall motion abnormalities. Left ventricular ejection fraction is estimated at 70 %. Grade I diastolic dysfunction (abnormal relaxation filling pattern), normal to mildly elevated filling pressures. Right Ventricle Normal right ventricular size and systolic function. Right ventricular systolic pressure 35 mmHg. Right Atrium Normal right atrial size. Left Atrium Mildly increased left atrial size. Mitral Valve Moderate mitral annular calcification. Mildly thickened mitral valve. No mitral valve stenosis. Mild-moderate mitral valve regurgitation. Aortic Valve Structurally normal trileaflet aortic valve. No aortic valve stenosis. No aortic valve regurgitation. Tricuspid Valve Structurally normal tricuspid valve. No tricuspid valve stenosis. Trace to mild tricuspid valve regurgitation. Pulmonic Valve Structurally normal pulmonic valve. No pulmonary valve stenosis. Trace pulmonary valve regurgitation. Pericardium No pericardial effusion. Prominent epicardial fat. Aorta Normal size aortic root and proximal ascending aorta. IVC Normal IVC dimension with >50% respiratory change of the inferior vena cava. CONCLUSIONS 1. Normal left ventricular size, systolic function and mildly increased wall thickness, with no regional wall motion abnormalities. Left ventricular ejection fraction is estimated at 70 %. Grade I diastolic dysfunction (abnormal relaxation filling pattern), normal to mildly elevated filling pressures. 2. Mild-moderate mitral valve regurgitation. 3. Pulmonary artery pressure estimated at 35 mm Hg. 4. When compared to study dated 07/24/2020, there is mild to moderate regurgitation now. Raven Pacheco MD (Electronically Signed) Final Date: 19 April 2022 16:03 S
--- NOTE | 2022-04-18 15:57 | P.HP_ITS ---
Providers/Chief Complaint Primary Care Provider: Pedro Venegas Chief Complaint: SYNCOPE History of Present Illness Maria Isabel Ho is a 77 year old female with history of COPD, smoking, HTN, HLD, DM2, PVD, CKD, orthostatic hypotension, uncontrolled hypertension on multiple antihypertensives who was recently discharged to detention on 03/02 was brought into the ER again today because of having episode of syncope today morning. As per patient who is awake and alert now she has been feeling nauseous for last 2 to 3 days. She thought she is having flu. Today morning during having breakfast she started feeling nauseous and while try to control vomiting she passed out. As per the EMS report patient had a bowel accident after passing out. In the ER patient is awake and alert on examination with family at bedside saturating 100% on room air with heart rate running at 60s beats per minute and a blood pressure elevated to more than 180 mmHg. Patient has not received any of her antihypertensives since today morning. Patient denies any weakness of any of her arms or legs, numbness, facial drooping. Review of Systems General: Reports: 10 or more systems reviewed and unremarkable except in HPI and below Const: Denies: fever(s), chills, body aches, change in appetite, change in weight, malaise, night sweats, diaphoresis, change in sleep pattern, daytime sleepiness or snoring Eyes: Denies: change in vision, blurry vision, photophobia, eye discomfort or eye discharge ENMT: Denies: throat pain, enlarged tonsils, hoarseness, mouth pain, oral sores, dry mouth, tinnitus, nasal congestion or post nasal drip Card: Denies: chest pain, palpitations, irregular heart rhythm, edema, swelling of feet/ankles, lightheadedness, syncope, pre-syncope, dyspnea on exertion, orthopnea, leg pain with exertion or acrocyanosis Resp: Denies: dyspnea, productive cough, non-productive cough, wheezing, str idor, pain on inspiration, change in phlegm color, hemoptysis or chest congestion GI: Denies: abdominal pain, nausea, vomiting, hematemesis, coffee ground emesis, dysphagia, heartburn, diarrhea, constipation, bloating, GI cramping, change in bowel habits, pain on defecation, hematochezia or melena : Denies: flank pain, dysuria, urinary frequency, urinary urgency, urinary hesitancy, nocturia or hematuria Musc: Denies: neck pain, back pain, extremity pain, joint pain, joint swelling, joint redness, joint stiffness or limited range of motion Neuro: Denies: headache(s), numbness in extremities, weakness in extremities, sensory changes, lack of coordination, difficulty walking, frequent falls, dizziness, vertigo, confusion, Slurred speech present, difficulty communicating thoughts or seizure-like activity Psych: Denies: anxiety, depression, mood swings, panic attacks, hopelessness or irritability Endo: Denies: polyuria, polydipsia, tired all the time, cold intolerance, excessive sweating, flushing or heat intolerance Mode/Lymph: Denies: easy bruising or easy bleeding All/Imm: Denies: tongue swelling, facial swelling or acute wheezing Medications/Allergies Home Medications Medication Instructions Recorded Confirmed Last Taken Type albuterol sulfate 90 mcg/actuation 2 puff inhalation Q6H PRN 05/06/20 04/18/22 Unknown History aerosol inhaler (Ventolin HFA) Shortness Of Breath aspirin 81 mg tablet,delayed 81 mg PO QAM 05/06/20 04/18/22 04/18/22 History release buspirone 10 mg tablet 10 mg PO BID PRN Anxiety 05/06/20 04/18/22 Unknown History citalopram 20 mg tablet 20 mg PO QAM 05/06/20 04/18/22 04/18/22 History clopidogrel 75 mg tablet 75 mg PO QAM 05/06/20 04/18/22 04/18/22 History felodipine 5 mg tablet,extended 5 mg PO BID 05/06/20 04/18/22 04/18/22 History release 24 hr lovastatin 40 mg tablet 40 mg PO QAM 05/06/20 04/18/22 04/18/22 History omeprazole 20 mg capsule,delayed 20 mg PO DAILY 05/06/20 04/18/22 04/18/22 History release propranolol 40 mg tablet 40 mg PO DAILY 05/06/20 04/18/22 04/18/22 History melatonin 5 mg tablet 5 mg PO BEDTIME 06/12/20 04/18/22 04/17/22 History acetaminophen 325 mg tablet 650 mg PO QID PRN Pain 04/18/22 04/18/22 Unknown History albuterol sulfate 2.5 mg/3 mL 2.5 mg inhalation Q4H PRN 04/18/22 04/18/22 Unknown History (0.083 %) solution for nebulization Shortness Of Breath Or Wheezing bisacodyl 10 mg rectal suppository 10 mg LA DAILY PRN Constipation 04/18/22 04/18/22 Unknown History budesonide 0.25 mg/2 mL suspension 0.25 mg inhalation BID 04/18/22 04/18/22 04/17/22 History for nebulization clonidine HCl 0.1 mg tablet 0.1 mg PO BID 04/18/22 04/18/22 04/18/22 History hydralazine 25 mg tablet 25 mg PO TID 04/18/22 04/18/22 04/18/22 History ipratropium 0.5 mg-albuterol 3 mg 3 ml inhalation Q8H 04/18/22 04/18/22 04/18/22 History (2.5 mg base)/3 mL nebulization soln levothyroxine 88 mcg tablet 88 mcg PO QAM 04/18/22 04/18/22 04/18/22 History magnesium hydroxide 400 mg/5 mL 30 ml PO DAILY PRN Constipation 04/18/22 04/18/22 Unknown History oral suspension (Milk of Magnesia) polyethylene glycol 3350 17 17 g PO DAILY PRN Constipation 04/18/22 04/18/22 Unknown History gram/dose oral powder propranolol 80 mg tablet 80 mg PO DAILY 04/18/22 04/18/22 04/17/22 History sennosides 8.6 mg tablet (senna) 8.6 mg PO DAILY PRN Constipation 04/18/22 04/18/22 Unknown History sodium phosphates 19 gram-7 118 ml LA DAILY PRN Constipation 04/18/22 04/18/22 Unknown History gram/118 mL enema (Enema) Allergies Allergy/AdvReac Type Severity Reaction Status Date / Time Penicillins Allergy ALGY-Hives Verified 04/18/22 11:28 tetracycline Allergy ALGY-Hives Verified 04/18/22 11:28 PFSH Acute PFSH: Medical History (Updated 04/18/22 @ 15:59 by Myke Reyes MD) Bradycardia Chronic back pain Chronic hyponatremia Chronic kidney disease (CKD) COPD (chronic obstructive pulmonary disease) Exertional dyspnea Frequent falls History of hypertension Hx of chest pain Hx of hyperlipidemia Hx of renal calculi Hx of type 2 diabetes mellitus Impaired physical mobility Orthostatic hypotension Peripheral vascular disease Postmenopausal Smoker Syncope Surgical History Hx of tubal ligation Family History Grandmother Clotting disorder Brother Cancer Diabetes Stroke Son Chronic kidney disease (CKD) Mother Diabetes Father Stroke Denies family history of CAD (coronary artery disease) Dementia Suicide Anesthesia complication Bleeding disorder Lung disease Social History Smoking and tobacco status: current every day smoker Alcohol intake: never Vitals/I&O/Wt Last Vital Signs Temp 97.7 F 04/18/22 09:46 Pulse 56 L 04/18/22 14:52 Resp 19 H 04/18/22 11:51 BP 186/70 04/18/22 14:52 Pulse Ox 99 04/18/22 14:52 O2 Del Method 04/18/22 11:51 Weight last 48 hrs Weight 50.802 kg Data 04/18/22 10:00 04/18/22 10:00 A&P Assessment and plan (1) Syncope: Most likely vasovagal in nature given the history. Does have history of orthostatic hypotension, uncontrolled hypertension in the past. Does have history of chronic hyponatremia. Also has history of carotid artery stenosis. Patient denies any chest pain but does have ST depression in lateral leads which could be secondary to hypokalemia. Patient did receive full dose Lovenox in the ER. For now we will hold off. If any regional wall motion abnormality in echocardiogram will go for further cardiac work-up Continue with home dose of aspirin, Plavix, statin. Check echocardiogram, carotid artery ultrasound, check A1c lipid panel.. Replete potassium with 80 mg oral. IV hydration with normal saline at 50 cc an hour for 1 bag. Monitor blood pressures. Check orthostatics. (2) Orthostatic hypotension: Chronic history. Will continue to monitor. (3) Hypokalemia: Replete with 80 mEq oral. Most likely secondary to nausea and vomiting for last 3 days. (4) Chronic hyponatremia: We hadBaseline sodium seems to be running from 1 30-1 32. Currently 130. As above. Continue to monitor daily. (5) Chronic kidney disease (CKD): Baseline creatinine 1.2-1.7. Currently 1.4. Continue to monitor. Medical reconciliation done for nephrotoxic drugs. Qualifiers: Chronic kidney disease stage: stage 3 (moderate) Chronic kidney disease stage 3 subtype: stage 3a (GFR 45-59) Qualified Code(s): N18.31 - Chronic kidney disease, stage 3a (6) Bradycardia: Plan Hypertension: Goal blood pressure less than 140/90 mmHg. Takes multiple antihypertensives at home including felodipine 5 mg twice daily, clonidine 0.1 mg twice daily, hydralazine 25 mg 3 times daily, propranolol 80 mg in morning, 40 mg at night. For now we will continue the same medications. We will try to titrate medications as of blood pressures. Nausea and vomiting: Flu negative. Check COVID-19 swab. Currently does not have any respiratory symptoms. Zofran as needed. Will continue to monitor. Full code. Cardiac diet. Protonix for PUD prophylaxis Heparin 5000 every 12 hourly for DVT prophylaxis. Attestations Medical Necessity Statement*: Admission under observation for less than 2 midnights for further evaluation and management of syncope Time Spent in Patient Care: Greater than 35 minutes Coding Level of Care Code Acute Crusher Tender for [facility] Fwd Diagnoses Syncope R55 Orthostatic hypotension I95.1 Hypokalemia E87.6 Chronic hyponatremia E87.1 Chronic kidney disease (CKD) N18.31 Chronic kidney disease stage: stage 3 (moderate) Chronic kidney disease stage 3 subtype: stage 3a (GFR 45-59) Bradycardia R00.1
[2022-04-18 16:16] LABS: D Dimer 1.16 ug/mIFEU (0-0.59)
[2022-04-18 16:26] LABS: Bilirubin Urine 1+ (Negative); Blood Urine Neg (Negative); Glucose Urine UA Norm (Normal); Ketones Urine Negative (Negative); Nitrate Urine Negative (Negative); Protein Urine 1+ (Negative); Urine Appearance Cloudy (CLEAR); Urine Color Dark Yellow (Yellow); Urobilinogen Urine Norm (Negative); pH Urine 5 (5-7)
[2022-04-18 16:27] LABS: Add Urine Microscopic? YES; Leukocyte Esterase Urine Trace (Negative); RBC Urine 0-4 /hpf (0-2)
[2022-04-18 16:28] LABS: Bacteria Urine 1+ /hpf; Hyaline Casts Urine 0-4 /lpf
[2022-04-18 16:31] LABS: Troponin 5 6HR 41.02 ng/L (0-10)
[2022-04-18 16:32] LABS: Potassium, Radom Urine 45 mmol/L; Urine Random Sodium 21 mmol/L
[2022-04-18 16:33] LABS: Troponin 5 6HR Delta -1.98 ng/L (0-12)
[2022-04-18 16:33] LABS: Urine Random Chloride 15 mmol/L
[2022-04-18 16:45] LABS: Thyroid Stimulating Hormone 3.26 uIU/mL (0.27-4.20)
[2022-04-18 16:49] LABS: Folate Level 17.6 ng/mL (4.8-37.3)
[2022-04-18 16:50] LABS: Procalcitonin 0.11 ng/mL (0-0.5); Vitamin B12 150 pg/mL (232-1245)
[2022-04-18 17:01] LABS: Iron 39 ug/dL (37-145); Percent Saturation 12.2 % (20-50); Total Iron Binding Capacity 319 mcg/dl; Unsaturated Iron Binding 280 ug/dL (112-347)
--- NOTE | 2022-04-18 17:07 | USCV_ITS ---
Maria Isabel Ho Age: 77 Gender: F : 1945 Exam Date: 04/18/2022 18:07 Ordering Phys: Myke Reyes MD Technologist: ROMINA [place]am [place] [facility] [place]: syncope. long-term smoker, continues smoking. no DM Risk Factors: syncope. long-term smoker, continues smoking. no DM syncope. long-term smoker, continues smoking. no DM syncope. long-term smoker, continues smoking. no DM syncope. long-term smoker, continues smoking. no DM Previous Vascular Surgery: None Right Brachial BP: Left Brachial BP: / Right Left Velocity (cm/s) Spectral Plaque Velocity (cm/s) Spectral Plaque Syst/Diast Broadening Syst/Diast Broadening 56.20/ 6.60 None Prox CCA 85.40 / 10.50 None 46.70/ 7.90 None Mid CCA 67.50 / 7.70 None 51.90/ 7.20 Homo Distal CCA 64.10 / 9.40 Homo 55.90/ 7.90 Michael Prox ICA 81.60 / 12.10 Michael 80.80/ 15.80 Homo Mid ICA 91.30 / 17.50 Homo 94.70/ 20.40 None Distal ICA 105.80/ 16.50 None 80.80 Homo ECA 142.10 Homo 1.68 ICA/CCA 1.24 Antegrade Vertebral Antegrade 40.80/ 7.20 cm/s 76.20/ 11.80 cm/s Tri Subclavian Tri 111.7 147.2 0 0 CONCLUSIONS Right ICA stenosis <50%. Mild atheromatous plaque right carotid bulb/ICA. Left ICA stenosis <50%. Mild atheromatous plaque left carotid bulb/ICA. Normal antegrade Doppler flow noted in the right vertebral artery. Normal antegrade Doppler flow noted in the left vertebral artery. Earl Montgomery MD (Electronically Signed) Final Date: 19 April 2022 10:06 S
[2022-04-18 17:24] LABS: Amphetamines Screen Urine Negative (Negative); Barbiturates Screen Urine Negative (Negative); Benzodiazepines Screen Urine Negative (Negative); Cocaine Screen Urine Negative (Negative); Opiate Screen Urine Negative (Negative); PCP Screen Urine Negative (Negative); THC Screen Urine Negative (Negative)
[2022-04-18] MEDS: cloNIDine 0.1 mg Tablet PO (17:25)
[2022-04-18] MEDS: hyDRALAzine 25 mg Tablet PO ×2 (17:25→21:21)
[2022-04-18] MEDS: sodium chloride 0.9% 1,000 ML 50 ML IV (19:18)
[2022-04-18] MEDS: ondansetron 2 mg/ML SDV 2 mL 4 MG IVP (19:18)
--- NOTE | 2022-04-18 19:49 | PC.NURSE ---
Admit Note Patient admitted to room 105 from ER via stretcher. Covering service notified. Patient presents with syncope. Orders reviewed & will continue to monitor. Patient and/or premium representative oriented to environment, equipment, and informed of the following as found in the admission booklet: patient rights & responsibilities, visitor policy, hand and respiratory hygiene practice. Other education includes: bp control, pain control and call light use. Patient and/or premium representative verbalizes understanding.
[2022-04-18 21:33] LABS: Adenovirus Not Detected (NOT DETECT); Chlamydia Pneumoniae Not Detected (NOT DETECT); Coronavirus 229E,HKU1,NL63,OC4 Not Detected (NOT DETECT); Human Metapneumovirus Not Detected (NOT DETECT); Human Rhinovirus/Enterovirus Not Detected (NOT DETECT); Influenza A Not Detected (NOT DETECT); Influenza A H1 Not Detected (NOT DETECT); Influenza A H1-2009 Not Detected (NOT DETECT); Influenza A H3 Not Detected (NOT DETECT); Influenza B Not Detected (NOT DETECT); Mycoplasma Pneumoniae Not Detected (NOT DETECT); Parainfluenza Virus Type 1 Not Detected (NOT DETECT); Parainfluenza Virus Type 2 Not Detected (NOT DETECT); Parainfluenza Virus Type 3 Not Detected (NOT DETECT); Parainfluenza Virus Type 4 Not Detected (NOT DETECT); Respiratory Syncytial Virus A Not Detected (NOT DETECT); Respiratory Syncytial Virus B Not Detected (NOT DETECT); SARS-COV-2 Not Detected (NOT DETECT)
[2022-04-18] MEDS: ipratropium-albuterol 3 mL Neb INHALATION (21:52)
[2022-04-18] MEDS: budesonide 0.5 mg/2 mL Neb INHALATION (21:53)
[2022-04-19] VITALS (10 sets, daily range): BP systolic 176–182; BP diastolic 66–90; PULSE 58–71; RESP 13–48; TEMP 36.7–37.1; O2SAT 94–99
[2022-04-19 04:46] LABS: Alanine Aminotransferase 9 U/L (0-33); Alkaline Phosphatase 77 U/L (35-105); Aspartate Amino Transferase 14 U/L (0-32); Blood Urea Nitrogen 16 mg/dL (8-23); Calcium 8.9 mg/dL (8.5-10.5); Carbon Dioxide 23 mmol/L (22-29); Chloride 102 mmol/L (98-107); Chol HDL Ratio 3.83 mg/dL (0.0-4.40); Cholesterol 115 mg/dL (0-200); Globulin 2.8 g/dL (1.3-4.6); Glucose 118 mg/dL (65-115); HDL Cholesterol 30 mg/dL (60-100); LDL Cholesterol Calculated 48 mg/dL (50-129); Magnesium 1.6 mg/dL (1.7-2.3); Osmolality Calculated 284 mOsm/kg (285-295); Sodium 136 mmol/L (136-145); Total Bilirubin 0.2 mg/dL (0.15-1.2); Total Protein 5.8 g/dL (6.6-8.7); Triglycerides 187 mg/dL (0-150); VLDL Cholestrol Calculation 37 mg/dL (0-30)
[2022-04-19 04:54] LABS: Anion Gap 14.3 (5-19); Potassium 3.3 mmol/L (3.5-5.1)
[2022-04-19 06:18] LABS: Basophils % 0.7 %; Eosinophils # 0.1 10^3/uL (0.0-0.8); Eosinophils % 2.6 %; Hematocrit 27.9 % (37.0-47.0); Hemoglobin 8.9 g/dL (11.5-15.3); Lymphocytes # 0.9 10^3/uL (0.8-4.8); Lymphocytes % 31.5 %; Mean Corpuscular HGB Conc 31.9 g/dL (30.0-36.0); Mean Corpuscular Hemoglobin 26.8 pg (28.0-34.0); Mean Platelet Volume 11.5 fL (7.4-10.4); Monocytes # 0.4 10^3/uL (0.2-0.9); Monocytes % 14.7 %; Neutrophils # 1.37 10^3/uL (1.8-7.7); Neutrophils % 50.1 %; Nucleated Red Blood Cells % 0 %; Platelet Count 222 10^3/cmm (130-400); Red Blood Count 3.32 10^6/uL (4.1-5.3); Red Cell Distribution Width 17.3 % (12.1-15.1); White Blood Count 2.7 10^3/uL (4.0-10.0)
[2022-04-19 06:33] LABS: Estmated Average Glucose 126
[2022-04-19] MEDS: atorvastatin 40 mg Tablet 20 MG PO (06:58)
[2022-04-19] MEDS: levothyroxine 88 mcg Tablet PO (06:59)
[2022-04-19] MEDS: clopidogrel 75 mg Tablet PO (06:59)
[2022-04-19] MEDS: citalopram 20 mg Tablet PO (06:59)
[2022-04-19] MEDS: aspirin 81 mg EC Tablet PO (06:59)
[2022-04-19] MEDS: pantoprazole DR 40 mg Tablet PO (08:34)
[2022-04-19] MEDS: cloNIDine 0.1 mg Tablet PO (08:35)
[2022-04-19] MEDS: hyDRALAzine 25 mg Tablet PO (08:37)
[2022-04-19] MEDS: budesonide 0.5 mg/2 mL Neb INHALATION (09:08)
--- NOTE | 2022-04-19 09:46 | PC.CHAP ---
Pastoral Care Encounter/Spiritual Assessment Type of Contact [] Declined mortar worker visit [] Patient/Family/Request visit [] Outpatient visit [] Follow-up visit [] Physician referral [] Code/Alert [x] Routine visit [] Staff referral [] Actively dying [x] Patient sleeping [] Family support [] [] Out of room [] Palliative care [] [] Receiving care in room [] Pre-surgical visit [] Trauma [] Long length of stay [] ICU visit [] Other: Relational/Emotional Strength [] Patient feels connected with others/family/visitors/staff [] Distress [] Loneliness/isolation [] Abandonment Spirituality of Patient [] Person of Ramya [] Attends Zoroastrian of their Ramya [] Believes in Prayer [] Reads Bible or Mosque materials [] There are Spiritual issues to be addressed Tree Trimming Line Technician Interventions [x] Prayer [] Active listening [] Non-anxious presence [] Spiritual/emotional support [] Crisis/trauma care [] Spiritual counseling [] Bereavement support [] Provided bereavement packet [] Provided Bible/devotional materials [] Provided toy/stuffed animal, coloring book to patient or family member [] Provided Communion [] Anointing/Marlow [] Salvation [] Completed spiritual assessment [] Other: Impact on Illness or Injury [] Angry [] Fearful [] Anxious [] Often cries [] Exhaustion [] Unable to work [] Unable to attend uatsdin [] Unable to walk/stand [] Unable to read [] Unable to drive [] Unable to eat/drink [] Unable to sleep [] Unable to be with family [] Patient intubated [] Other: Summary Time spent with patient
--- NOTE | 2022-04-19 11:30 | CT_ITS ---
WS: [id number] CT ABDOMEN PELVIS TECHNIQUE: Noncontrast CT of the abdomen and pelvis with coronal and sagittal reformatted images. CLINICAL INFORMATION: nausea vomiting and pain COMPARISON: March 01, 2022 DLP: 352.[address] scans at [facility] use at least one of these dose optimization techniques: automated e xposure control; mA and/or kV adjustment per patient size (includes targeted exams where dose is matc hed to clinical indication); or iterative reconstruction. FINDINGS: Moderate to large esophageal hiatal hernia with partial intrathoracic stomach appears unchanged. Lung bases are well aerated. Stable low-attenuation RIGHT hepatic lesion measuring 11 mm. Splenic granulo mas. Fatty atrophy of the pancreas. Cholelithiasis. Gallbladder is contracted. Splenic artery calcification. Adrenal glands are normal. No hydronephrosis in either kidney. Stable l obulated LEFT renal cyst measuring 3.5 CM. Smaller RIGHT renal parenchymal cyst. Calcified uterine fi broids. Dense vascular calcification. Mesenteric and aortic calcification. Slightly ectatic infrarena l abdominal aorta measuring 1.8 cm. Normal sigmoid colon. A few diverticuli. No evidence of acute diverticulitis. No evidence of high-gra de small or large bowel obstruction. Normal lumbar spine. CT/CT abdomen pelvis wo con [id number] IMPRESSION: 1. No acute findings in the abdomen or pelvis. 2. Gallbladder is contracted. Cholelithiasis. 3. No free fluid in the abdomen or pelvis. 4. Moderate to large esophageal hiatal hernia with partial intrathoracic stoma ch is unchanged from previous. 5. Fibroid uterus.
[2022-04-19] MEDS: ipratropium-albuterol 3 mL Neb INHALATION (11:35)
[2022-04-19] MEDS: ondansetron 2 mg/ML SDV 2 mL 4 MG IVP (12:42)
[2022-04-19] MEDS: cyanocobalamin 1,000 mcg/mL SDV 1000 MCG IM (12:42)
[2022-04-19] MEDS: losartan 50 mg Tablet PO (12:43)
--- NOTE | 2022-04-19 13:10 | P.DS_ITS ---
Discharge Providers Date of Admission: 04/18/22 17:44 Date of Discharge: April 19, 2022 Attending Provider at Admission: Myke Reyes MD Attending Provider at Discharge: Myke Reyes MD Primary Care Provider: Pedro Venegas Diagnoses at Discharge Discharge Diagnosis (1) Syncope: Status: Acute (2) Orthostatic hypotension: Status: Acute (3) Hypokalemia: Status: Acute (4) Chronic hyponatremia: Status: Acute (5) Chronic kidney disease (CKD): Status: Acute (6) Bradycardia: Status: Acute (7) Cholelithiasis: Status: Acute Reason for Visit Reason for Visit: SYNCOPE Hospital Course Hospital Course Maria Isabel Ho is a 77 year old female with history of COPD, smoking, HTN, HLD, DM2, PVD, CKD, orthostatic hypotension, uncontrolled hypertension on multiple antihypertensives who was recently [facility]02 was brought into the ER again today because of having episode of syncope today morning.? As per patient who is awake and alert now she has been feeling nauseous for last 2 to 3 days.? She thought she is having flu.? Today morning during having breakfast she started feeling nauseous and while try to control vomiting she passed out.? As per the EMS report patient had a bowel accident after passing out. In the ER patient is awake and alert on examination with family at bedside saturating 100% on room air with heart rate running at 60s beats per minute and a blood pressure elevated to more than 180 mmHg.? Patient has not received any of her antihypertensives since today morning.? Patient denies any weakness of any of her arms or legs, numbness, facial drooping. Patient was admitted to the hospital further evaluation of syncope. Orthostatics were ruled out. On admission she was slightly hypertensive. Her home dose of antihypertensives were adjusted. Her presentation is most likely vasovagal in nature. On admission patient did have mild hypokalemia which was repleted. Given chronic hyponatremia sodium levels remained stable. On admission there was concern for mild ST-T changes in lateral leads which is thought to be secondary to hypokalemia. Patient's troponin cycled remain negative and patient remained chest pain-free. She did not have any further episodes of syncope or presyncope. Carotid Dopplers were done and were negative. Flu was ruled out. For occasional episodes of nausea and vomiting CT abdomen pelvis was done which is consistent with cholelithiasis. She has been discharged back to SN[facility] for further rehabitation on adjusted antihypertensives and Zofran as needed. Physical Exam Narrative: General: No acute distress, AO x3 not dehydrated anymore HEENT: PERRLA, pupils bilaterally equal and reactive Chest: Normal vesicular breath sounds, no added sounds, equal good air entry bilaterally CVS: S1-S2 regular, no murmurs, no tachycardia, no gallops, no rubs Abdomen: Soft, nontender, no organomegaly, bowel sounds present Neuro: No focal deficits, no facial deformity, AO x3, power 5/5 in all limbs Discharge Data Studies Completed and Pending Completed Studies During Hospitalization Category Date Time Status CT abdomen pelvis wo con [id number] Stat Cat Scan 04/19/22 11:[address] head wo con* [id number] Stat Cat Scan 04/18/22 10:14 Completed XR chest 2V* [id number] Stat Exams 04/18/22 10:15 Completed CV carotid duplex BI* [id number] Routine Ultrasound 04/18/22 17:07 Completed Pending at discharge Category Date Time Status CDIFF [Clostridioides Difficile PCR] Routine Lab 04/19/22 12:55 Uncollected CV. echo complete* [id number] Routine Ultrasound 04/18/22 15:57 Taken Radiology Impressions Head CT 04/18/22 10:14 IMPRESSION: 1. No evidence of intracranial hemorrhage or mass effect. 2. Moderate small vessel changes with moderate to advanced parenchymal volume loss worse in the frontal lobes. 3. Chronic lacunar infarct LEFT caudate. 4. Vascular calcification. 5. No acute intracranial findings. Chest X-Ray 04/18/22 10:15 Impression: Atherosclerosis and hiatal hernia. Abdomen/Pelvis CT 04/19/22 11:30 IMPRESSION: 1. No acute findings in the abdomen or pelvis. 2. Gallbladder is contracted. Cholelithiasis. 3. No free fluid in the abdomen or pelvis. 4. Moderate to large esophageal hiatal hernia with partial intrathoracic stomach is unchanged from previous. 5. Fibroid uterus. Laboratory Results WBC 2.7 10^3/uL (4.0-10.0) L 04/19/22 05:55 Corrected WBC Cancelled 04/19/22 03:50 RBC 3.32 10^6/uL (4.1-5.3) L 04/19/22 05:55 Hgb 8.9 g/dL (11.5-15.3) L 04/19/22 05:55 Hct 27.9 % (37.0-47.0) L 04/19/22 05:55 MCV 84.0 fl (81-99) 04/19/22 05:55 MCH 26.8 pg (28.0-34.0) L 04/19/22 05:55 MCHC 31.9 g/dL (30.0-36.0) 04/19/22 05:55 RDW 17.3 % (12.1-15.1) H 04/19/22 05:55 Plt Count 222 10^3/cmm (130-400) 04/19/22 05:55 MPV 11.5 fL (7.4-10.4) H 04/19/22 05:55 Gran % Cancelled 04/19/22 03:50 Neut % (Auto) 50.1 % 04/19/22 05:55 Lymph % (Auto) 31.5 % 04/19/22 05:55 [place] % (Auto) 14.7 % 04/19/22 05:55 Eos % (Auto) 2.6 % 04/19/22 05:55 Baso % (Auto) 0.7 % 04/19/22 05:55 Neut # (Auto) 1.37 10^3/uL (1.8-7.7) L 04/19/22 05:55 Lymph # (Auto) 0.9 10^3/uL (0.8-4.8) 04/19/22 05:55 [place] # (Auto) 0.4 10^3/uL (0.2-0.9) 04/19/22 05:55 Eos # (Auto) 0.1 10^3/uL (0.0-0.8) 04/19/22 05:55 Baso # (Auto) 0.0 10^3/uL (0.0-0.1) 04/19/22 05:55 Absolute Gran (auto) Cancelled 04/19/22 03:50 Nucleated RBC % (auto) 0 % 04/19/22 05:55 Nucleated RBCs # 0.0 /100WBC 04/19/22 05:55 D-Dimer 1.16 ug/mIFEU (0-0.59) H 04/18/22 10:00 Sodium 136 mmol/L (136-145) 04/19/22 03:50 Potassium 3.3 mmol/L (3.5-5.1) L 04/19/22 03:50 Chloride 102 mmol/L (98-107) 04/19/22 03:50 Carbon Dioxide 23 mmol/L (22-29) 04/19/22 03:50 Anion Gap 14.3 (5-19) 04/19/22 03:50 BUN 16 mg/dL (8-23) 04/19/22 03:50 Creatinine 1.2 mg/dL (0.5-0.9) H 04/19/22 03:50 GFR Calculation Not Reportable 04/19/22 03:50 Glucose 118 mg/dL (65-115) H 04/19/22 03:50 Estimat Average Glucose 126 04/19/22 05:55 Hemoglobin A1c 6.0 % (4.0-6.0) 04/19/22 05:55 Calculated Osmolality 284 mOsm/kg (285-295) L 04/19/22 03:50 Calcium 8.9 mg/dL (8.5-10.5) 04/19/22 03:50 Phosphorus 3.0 mg/dL (2.5-4.5) 04/19/22 03:50 Magnesium 1.6 mg/dL (1.7-2.3) L 04/19/22 03:50 Iron 39 ug/dL (37-145) 04/18/22 10:00 TIBC 319 mcg/dl 04/18/22 10:00 % Saturation 12.2 % (20-50) L 04/18/22 10:00 Unsat Iron Binding 280 ug/dL (112-347) 04/18/22 10:00 Total Bilirubin 0.2 mg/dL (0.15-1.2) 04/19/22 03:50 AST 14 U/L (0-32) 04/19/22 03:50 ALT 9 U/L (0-33) 04/19/22 03:50 Alkaline Phosphatase 77 U/L (35-105) 04/19/22 03:50 Troponin T Baseline 43 ng/L (0-10) H 04/18/22 10:00 Troponin T 120 Minute 40.17 ng/L (0-10) H 04/18/22 12:09 Delta Troponin T -2.83 ABS# (0-10) L 04/18/22 12:09 Troponin T Hi Sens 6Hr 41.02 ng/L (0-10) H 04/18/22 16:05 Troponin T Hi Sens 6Hr Delta -1.98 ng/L (0-12) L 04/18/22 16:05 Total Protein 5.8 g/dL (6.6-8.7) L 04/19/22 03:50 Albumin 3.0 g/dL (3.5-5.2) L 04/19/22 03:50 Globulin 2.8 g/dL (1.3-4.6) 04/19/22 03:50 Triglycerides 187 mg/dL (0-150) H 04/19/22 03:50 Cholesterol 115 mg/dL (0-200) 04/19/22 03:50 LDL Cholesterol, Calc 48 mg/dL (50-129) L 04/19/22 03:50 Total VLDL Cholesterol 37 mg/dL (0-30) H 04/19/22 03:50 HDL Cholesterol 30 mg/dL (60-100) L 04/19/22 03:50 Cholesterol/HDL Ratio 3.83 mg/dL (0.0-4.40) 04/19/22 03:50 Lipase 21 U/L (13-60) 04/18/22 10:00 Vitamin B12 150 pg/mL (232-1245) L 04/18/22 10:00 Folate 17.6 ng/mL (4.8-37.3) 04/18/22 10:00 Procalcitonin 0.11 ng/mL (0-0.5) 04/18/22 10:00 TSH 3.26 uIU/mL (0.27-4.20) 04/18/22 10:00 Urine Color Dark yellow (Yellow) 04/18/22 14:56 Urine Appearance Cloudy (CLEAR) A 04/18/22 14:56 Urine pH 5 (5-7) 04/18/22 14:56 Ur Specific [place] 1.020 (1.005-1.030) 04/18/22 14:56 Urine Protein 1+ (Negative) H 04/18/22 14:56 Urine Glucose (UA) Norm (Normal) 04/18/22 14:56 Urine Ketones Negative (Negative) 04/18/22 14:56 Urine Blood Neg (Negative) 04/18/22 14:56 Urine Nitrate Negative (Negative) 04/18/22 14:56 Urine Bilirubin 1+ (Negative) H 04/18/22 14:56 Urine Urobilinogen Norm mg/dL (Negative) 04/18/22 14:56 Ur Leukocyte Esterase Trace (Negative) H 04/18/22 14:56 Urine RBC 0-4 /hpf (0-2) H 04/18/22 14:56 Urine WBC 10-15 /hpf (0-5) H 04/18/22 14:56 Ur Squamous Epith Cells 10-15 /hpf (0-5) H 04/18/22 14:56 Amorphous Sediment Not Reportable 04/18/22 14:56 Urine Bacteria 1+ /hpf (NONE) H 04/18/22 14:56 Hyaline Casts 0-4 /lpf H 04/18/22 14:56 Ur Random Sodium 21 mmol/L 04/18/22 14:56 Ur Random Potassium 45 mmol/L 04/18/22 14:56 Ur Random Chloride 15 mmol/L 04/18/22 14:56 Urine Opiates Screen Negative ng/mL (Negative) 04/18/22 14:56 Ur Barbiturates Screen Negative ng/mL (Negative) 04/18/22 14:56 Ur Phencyclidine Scrn Negative ng/mL (Negative) 04/18/22 14:56 Ur Amphetamines Screen Negative ng/mL (Negative) 04/18/22 14:56 U Benzodiazepines Scrn Negative ng/mL (Negative) 04/18/22 14:56 Urine Cocaine Screen Negative ng/mL (Negative) 04/18/22 14:56 U Marijuana (THC) Screen Negative ng/mL (Negative) 04/18/22 14:56 Coronavirus 229E (PCR) Not detected (NOT DETECT) 04/18/22 19:20 Influenza Type A Ag negative (Negative) 04/18/22 11:45 Influenza Type B Ag negative (Negative) 04/18/22 11:45 SARS-CoV-2 (PCR) Not detected (NOT DETECT) 04/18/22 19:20 Vitals Last Vital Signs Temp 98.7 F 04/19/22 12:00 Pulse 71 04/19/22 12:03 Resp 48 H 04/19/22 12:03 BP 182/72 04/19/22 08:35 Pulse Ox 94 04/19/22 11:35 O2 Del Method 04/19/22 11:35 O2 Flow Rate 3 04/19/22 05:55 Discharge Plan Discharge Patient Disposition: Home Condition: Stable Prescriptions: New cyanocobalamin (vitamin B-12) [Vitamin B-12] 1,000 mcg Tablet 500 mcg PO DAILY Qty: 30 0RF metoprolol tartrate 50 mg Tablet 50 mg PO BID@0900,2100 30 Days Qty: 60 0RF losartan 50 mg Tablet 50 mg PO DAILY Qty: 30 0RF hydralazine 25 mg Tablet 50 mg PO TID 30 Days Qty: 180 0RF ondansetron 4 mg tablet,disintegrating 4 mg PO DAILY PRN (Reason: nausea and vomiting) 4 Days Qty: 14 0RF Continued melatonin 5 mg tablet 5 mg PO BEDTIME felodipine 5 mg tablet extended release 24 hr 5 mg PO BID lovastatin 40 mg tablet 40 mg PO QAM clopidogrel 75 mg tablet 75 mg PO QAM aspirin 81 mg Tablet,Delayed Release (Dr/Ec) 81 mg PO QAM citalopram 20 mg tablet 20 mg PO QAM buspirone 10 mg tablet 10 mg PO BID PRN (Reason: Anxiety) omeprazole 20 mg capsule,delayed release(DR/EC) 20 mg PO DAILY albuterol sulfate [Ventolin HFA] 90 mcg/actuation HFA aerosol inhaler 2 puff inhalation Q6H PRN (Reason: Shortness Of Breath) senna 8.6 mg Tablet 8.6 mg PO DAILY PRN (Reason: Constipation) acetaminophen 325 mg Tablet 650 mg PO QID PRN (Reason: Pain) ipratropium-albuterol 0.5 mg-3 mg(2.5 mg base)/3 mL solution for nebulization 3 ml INHALATION Q8H albuterol sulfate 2.5 mg /3 mL (0.083 %) solution for nebulization 2.5 mg inhalation Q4H PRN (Reason: Shortness Of Breath Or Wheezing) levothyroxine 88 mcg tablet 88 mcg PO QAM Milk of Magnesia 400 mg/5 mL Suspension 30 ml PO DAILY PRN (Reason: Constipation) Biscolax 10 mg Suppository 10 mg MO DAILY PRN (Reason: Constipation) Enema 19-7 gram/118 mL Enema 118 ml MO DAILY PRN (Reason: Constipation) budesonide 0.25 mg/2 mL suspension for nebulization 0.25 mg inhalation BID polyethylene glycol 3350 17 gram/dose Powder 17 g PO DAILY PRN (Reason: Constipation) Discontinued propranolol 40 mg tablet 40 mg PO DAILY clonidine HCl 0.1 mg tablet 0.1 mg PO BID propranolol 80 mg tablet 80 mg PO DAILY hydralazine 25 mg tablet 25 mg PO TID Discharge Orders: Discharge Order (Routine); Ordered 04/19/22 Ordered By: Myke Reyes Referrals: Pedro Venegas [Primary Care Provider] - 1 week Discharge Diet: Cardiac and Soft Mechanical Discharge Activity: Resume usual activity and Increase activity as tolerated Patient Instructions: Opioid Safety Activity Restrictions/Additional Instructions: Multiple medication changes have been done. Given history of orthostatic hypotension medications which can provoke orthostasis have been withheld. Do not take clonidine and propranolol anymore. Instead medication has been changed to metoprolol 50 mg twice daily, losartan 50 mg daily. Dose of hydralazine has been increased to 50 mg 3 times a day. Please maintain a blood pressure diary by checking blood pressures twice daily and follow-up with a primary care provider within next 1 week for further adjustment of antihypertensives as needed. Zofran as needed for nausea. For now continue taking mechanical soft diet. Please maintain your oral hydration with at least 2 to 3 L of fluid daily. Discharge Attestations Time Spent in Discharge Care*: greater than 30 min Specific Discharge Activities: educating patient, discussing with pcp/other providers, discussing with protective services case worker/social workers/dc planners, documenting/other paperwork and evaluating patient/reviewing data Status at Discharge: Cognitive status at discharge: mildly impaired cognition , Behavioral status at discharge: cooperative , Functional status at discharge: uses cane/walker , Overall status at discharge: patient is progressing back to baseline Quality Metrics Clinical Quality Measures [ No reported AMI, CVA or VTE this stay] Coding Level of Care Code Acute Chg FW DC note Diagnoses Syncope R55 Orthostatic hypotension I95.1 Hypokalemia E87.6 Chronic hyponatremia E87.1 Chronic kidney disease (CKD) N18.9 Bradycardia R00.1 Cholelithiasis K80.20
--- NOTE | 2022-04-19 14:19 | PC.NURSE ---
Report called to Shelly BOLANOS at [facility]. Discussed medication changes and procedures.
== END 2022-04-19 14:32 | disposition home or self-care (01) ==
LOC: ER 14:18 → CSU 17:04
PROVIDERS: Nurse Practitioner Family; Admitting Provider Student in an Organized Health Care Education/Training Program; Emergency Provider Family Medicine; PCP Physician Assistant Medical; Visit Provider Student in an Organized Health Care Education/Training Program
DX: I95.1 Orthostatic hypotension (principal); E87.6 Hypokalemia; E87.1 Hypo-osmolality and hyponatremia; E11.22 Type 2 diabetes mellitus with diabetic chronic kidney disease; I12.9 Hypertensive chronic kidney disease with stage 1 through stage 4 chronic kidney disease, or unspecified chronic kidney disease; N18.30 Chronic kidney disease, stage 3 unspecified; R00.1 Bradycardia, unspecified; K80.20 Calculus of gallbladder without cholecystitis without obstruction; J44.9 Chronic obstructive pulmonary disease, unspecified; E78.5 Hyperlipidemia, unspecified; K44.9 Diaphragmatic hernia without obstruction or gangrene; Z79.82 Long term (current) use of aspirin; F17.210 Nicotine dependence, cigarettes, uncomplicated
CPT/HCPCS: 36415; 70450; 71046; 74176; 80053; 80061; 80306; 81001; 82436; 82607; 82746; 83036; 83540; 83550; 83690; 83735; 84100; 84133; 84145; 84300; 84443; 84484; 85025; 85378; 87635; 87804; 93005; 93306; 93880; 94640; 96361; 96372; 96374; 96376; 97116; 97161; 99285; G0378; J1650; J2405; J3420; J7030; J7626

== ENCOUNTER 2022-05-12 09:18 | Emergency (ER) | payer MEDICARE, MEDICAID, SELFPAY ==
[2022-05-12 09:23] VITALS: PULSE 60; RESP 14; TEMP 36.8; O2SAT 98; BMI 19.6
[2022-05-12 09:29] VITALS: BP 132/59; PULSE 62; RESP 16; O2SAT 98
--- NOTE | 2022-05-12 09:58 | ECG_ITS ---
[facility] Test Date: 2022-05-12 Pat Name: Maria Isabel Ho Department: Room: Gender: Female Applications Project Manager: : 1945 Requested By: Lala Glass Order Number: [id number] Mccarty MD: Chaz Stein M.D. Measurements Intervals [place] Rate: 59 P: 66 TN: 145 QRS: 51 QRSD: 72 T: 231 QT: 438 QTc: 436 Interpretive Statements SINUS BRADYCARDIA POSSIBLE LEFT ATRIAL ENLARGEMENT [-0.1mV P-WAVE IN V1/V2] LEFT VENTRICULAR HYPERTROPHY AND ST-T CHANGE [VOLTAGE CRITERIA PLUS ST/T ABNORMALITY] Compared to ECG 04/18/2022 16:08:35 No significant changes Electronically Signed On 05-14-2022 7:46:20 MORNING BABYSITTER by Chaz Stein M.D. [email or web address]
[2022-05-12 10:16] LABS: Basophils % 0.3 %; Eosinophils # 0.1 10^3/uL (0.0-0.8); Eosinophils % 1.7 %; Hematocrit 31.7 % (37.0-47.0); Hemoglobin 9.9 g/dL (11.5-15.3); Lymphocytes # 0.7 10^3/uL (0.8-4.8); Lymphocytes % 9.2 %; Mean Corpuscular HGB Conc 31.2 g/dL (30.0-36.0); Mean Corpuscular Hemoglobin 26.6 pg (28.0-34.0); Mean Corpuscular Volume 85.2 fl (81-99); Mean Platelet Volume 12.2 fL (7.4-10.4); Monocytes # 0.5 10^3/uL (0.2-0.9); Monocytes % 6.9 %; Neutrophils # 5.89 10^3/uL (1.8-7.7); Neutrophils % 81.6 %; Nucleated Red Blood Cells % 0 %; Platelet Count 150 10^3/cmm (130-400); Red Blood Count 3.72 10^6/uL (4.1-5.3); Red Cell Distribution Width 16.6 % (12.1-15.1); White Blood Count 7.2 10^3/uL (4.0-10.0)
[2022-05-12 10:43] LABS: Alanine Aminotransferase 10 U/L (0-33); Albumin Level 3.4 g/dL (3.5-5.2); Alkaline Phosphatase 88 U/L (35-105); Anion Gap 18.6 (5-19); Aspartate Amino Transferase 16 U/L (0-32); Blood Urea Nitrogen 18 mg/dL (8-23); Calcium 8.9 mg/dL (8.5-10.5); Carbon Dioxide 21 mmol/L (22-29); Chloride 98 mmol/L (98-107); Globulin 3.4 g/dL (1.3-4.6); Glucose 123 mg/dL (65-115); Osmolality Calculated 281 mOsm/kg (285-295); Potassium 3.6 mmol/L (3.5-5.1); Sodium 134 mmol/L (136-145); Total Bilirubin 0.2 mg/dL (0.15-1.2); Total Protein 6.8 g/dL (6.6-8.7)
--- NOTE | 2022-05-12 10:55 | W.ED.SYNCOPE ---
HPI - Syncope General: Chief Complaint: Syncope Stated Complaint: SYNCOPE Time Seen by Provider: 05/12/22 10:55 History of Present Illness: Ms. Ho is a 77-year-old lady with history of heart murmur, chronic hyponatremia, CKD presenting to the emergency department due to syncopal episode. She reports being at her baseline health and was sitting down to start eating breakfast when she lost consciousness. Denies specific prodrome. She did not have a choking episode associated with this. Currently feels generalized tiredness however no other specific symptoms. Does not sound like there was trauma involved. Duration and other characteristics are somewhat unclear. She does report 1 similar episode in the past. No other specific changes in health, exacerbating, or alleviating factors identified. Onset (ago): minute(s) Witnessed: Yes - by Bystander Context: at rest Injuries sustained associated with event: none Associated symptoms: Reports no associated symptoms Review of Systems General: Reports: 10 or more systems reviewed and unremarkable except in HPI and below PFSH ED PFSH: Medical History Bradycardia Chronic back pain Chronic hyponatremia Chronic kidney disease (CKD) COPD (chronic obstructive pulmonary disease) COPD exacerbation Exertional dyspnea Frequent falls History of hypertension Hx of chest pain Hx of hyperlipidemia Hx of renal calculi Hx of type 2 diabetes mellitus Impaired physical mobility Orthostatic hypotension Peripheral arterial disease with history of revascularization Peripheral vascular disease Postmenopausal Smoker Syncope Surgical History Hx of tubal ligation Family History Grandmother Clotting disorder Brother Cancer Diabetes Stroke Son Chronic kidney disease (CKD) Mother Diabetes Father Stroke Denies family history of CAD (coronary artery disease) Dementia Suicide Anesthesia complication Bleeding disorder Lung disease Social History Smoking and tobacco status: current every day smoker Alcohol intake: never Physical Exam Const: COMMON NORMALS: patient oriented x3 and alert GENERAL APPEARANCE: cooperative and well developed HENMT: COMMON NORMALS: normocephalic and atraumatic HEAD & SCALP: normocephalic and atraumatic Eye: COMMON NORMALS: conjunctivae normal CONJUNCTIVA: Yes conjunctivae normal SCLERA: sclerae normal Neck/C-Spine: COMMON NORMALS: supple GENERAL: Yes trachea midline Resp: COMMON NORMALS: clear to auscultation bilaterally EFFORT & INSPECTION: Yes able to speak in complete sentences AUSCULTATION: clear to auscultation bilaterally Cardio: COMMON NORMALS: regular rate and regular rhythm RATE: regular rate RHYTHM: regular rhythm GI: COMMON NORMALS: Soft to palpation PALPATION: Yes Soft to palpation and No Tenderness to palpation present (GI) Extremity: GENERAL: Yes normal exam except as noted and No edema Neuro: COMMON NORMALS: patient oriented x3, CN's II-XII intact bilaterally, moves all extremities, no focal motor deficits and no sensory deficits noted SENSORIUM/ORIENTATION: Yes alert and No Orientation impaired Psych: COMMON NORMALS: mental status grossly normal and Normal thought process present THOUGHT PROCESS: Normal thought process present Course Vital Signs: Vital signs: Vital Signs Temperature 98.2 F 05/12/22 09:23 Pulse Rate 63 05/12/22 10:56 Respiratory Rate 14 05/12/22 10:56 Blood Pressure 140/47 05/12/22 10:56 Pulse Oximetry 97 05/12/22 10:56 Oxygen Delivery Me thod 05/12/22 10:56 MDM - Syncope Medical Decision Making 77-year-old lady presenting with syncopal episode. Patient is currently back to baseline and no focal neurologic deficits appreciated. She is nontoxic on exam. EKG notable for sinus rhythm with nonspecific ST segment abnormalities, normal intervals and axis, no STEMI. Similar to prior. Labs with no leukocytosis, near baseline normocytic anemia, normal platelet count. Metabolic panel with perhaps mild dehydration though overall similar to prior. Magnesium is low mildly. Negative range 2-hour delta troponin. No evidence of UTI. Chest x-ray similar to prior with no evidence of lobar consolidation or pneumothorax. No evidence of acute intracranial pathology on head CT. Patient treated with IV fluids and magnesium replenishment and feels improved. Patient has had fairly extensive recent evaluation including carotid ultrasounds and echocardiogram, her medications are optimized for secondary stroke prevention. The exact etiology of her syncope is unclear. Plan to have outpatient Holter monitor. The results of ED evaluation were discussed with the patient including prescriptions and/or symptomatic cares (if applicable) including appropriate and responsible use, followup plan, and return precautions. The patient verbalized understanding and felt safe for discharge. Medical Records I reviewed the patient's medical records. Lab Data I reviewed the patient's lab results. 05/12/22 09:57 05/12/22 09:57 Radiology Impressions Chest X-Ray 05/12/22 11:00 IMPRESSION: Stable film with no acute findings. Head CT 05/12/22 11:00 IMPRESSION: Stable chronic findings with no evidence of acute intracranial hemorrhage, mass or acute infarction. Laboratory Results WBC 7.2 10^3/uL (4.0-10.0) 05/12/22 09:57 RBC 3.72 10^6/uL (4.1-5.3) L 05/12/22 09:57 Hgb 9.9 g/dL (11.5-15.3) L 05/12/22 09:57 Hct 31.7 % (37.0-47.0) L 05/12/22 09:57 MCV 85.2 fl (81-99) 05/12/22 09:57 MCH 26.6 pg (28.0-34.0) L 05/12/22 09:57 MCHC 31.2 g/dL (30.0-36.0) 05/12/22 09:57 RDW 16.6 % (12.1-15.1) H 05/12/22 09:57 Plt Count 150 10^3/cmm (130-400) 05/12/22 09:57 MPV 12.2 fL (7.4-10.4) H 05/12/22 09:57 Neut % (Auto) 81.6 % 05/12/22 09:57 Lymph % (Auto) 9.2 % 05/12/22 09:57 [place] % (Auto) 6.9 % 05/12/22 09:57 Eos % (Auto) 1.7 % 05/12/22 09:57 Baso % (Auto) 0.3 % 05/12/22 09:57 Neut # (Auto) 5.89 10^3/uL (1.8-7.7) 05/12/22 09:57 Lymph # (Auto) 0.7 10^3/uL (0.8-4.8) L 05/12/22 09:57 [place] # (Auto) 0.5 10^3/uL (0.2-0.9) 05/12/22 09:57 Eos # (Auto) 0.1 10^3/uL (0.0-0.8) 05/12/22 09:57 Baso # (Auto) 0.0 10^3/uL (0.0-0.1) 05/12/22 09:57 Nucleated RBC % (auto) 0 % 05/12/22 09:57 Nucleated RBCs # 0.0 /100WBC 05/12/22 09:57 Sodium 134 mmol/L (136-145) L 05/12/22 09:57 Potassium 3.6 mmol/L (3.5-5.1) 05/12/22 09:57 Chloride 98 mmol/L (98-107) 05/12/22 09:57 Carbon Dioxide 21 mmol/L (22-29) L 05/12/22 09:57 Anion Gap 18.6 (5-19) 05/12/22 09:57 BUN 18 mg/dL (8-23) 05/12/22 09:57 Creatinine 1.2 mg/dL (0.5-0.9) H 05/12/22 09:57 GFR Calculation Not Reportable 05/12/22 09:57 Glucose 123 mg/dL (65-115) H 05/12/22 09:57 Calculated Osmolality 281 mOsm/kg (285-295) L 05/12/22 09:57 Calcium 8.9 mg/dL (8.5-10.5) 05/12/22 09:57 Magnesium 1.6 mg/dL (1.7-2.3) L 05/12/22 09:57 Total Bilirubin 0.2 mg/dL (0.15-1.2) 05/12/22 09:57 AST 16 U/L (0-32) 05/12/22 09:57 ALT 10 U/L (0-33) 05/12/22 09:57 Alkaline Phosphatase 88 U/L (35-105) 05/12/22 09:57 Troponin T Baseline 31 ng/L (0-10) H 05/12/22 09:57 Troponin T 120 Minute 28.25 ng/L (0-10) H 05/12/22 12:07 Delta Troponin T -2.75 ABS# (0-10) L 05/12/22 12:07 Total Protein 6.8 g/dL (6.6-8.7) 05/12/22 09:57 Albumin 3.4 g/dL (3.5-5.2) L 05/12/22 09:57 Globulin 3.4 g/dL (1.3-4.6) 05/12/22 09:57 TSH 1.91 uIU/mL (0.27-4.20) 05/12/22 09:57 Urine Color Yellow (Yellow) 05/12/22 11:15 Urine Appearance Clear (CLEAR) 05/12/22 11:15 Urine pH 6 (5-7) 05/12/22 11:15 Ur Specific [place] 1.010 (1.005-1.030) 05/12/22 11:15 Urine Protein 1+ (Negative) H 05/12/22 11:15 Urine Glucose (UA) Trace (Normal) H 05/12/22 11:15 Urine Ketones 1+ (Negative) H 05/12/22 11:15 Urine Blood Neg (Negative) 05/12/22 11:15 Urine Nitrate Negative (Negative) 05/12/22 11:15 Urine Bilirubin Neg (Negative) 05/12/22 11:15 Urine Urobilinogen Norm mg/dL (Negative) 05/12/22 11:15 Ur Leukocyte Esterase Negative (Negative) 05/12/22 11:15 Urine RBC None /hpf (0-2) 05/12/22 11:15 Urine WBC 0-4 /hpf (0-5) H 05/12/22 11:15 Ur Squamous Epith Cells None /hpf (0-5) 05/12/22 11:15 Amorphous Sediment Not Reportable 05/12/22 11:15 Urine Bacteria 1+ /hpf (NONE) H 05/12/22 11:15 Hyaline Casts 0-4 /lpf H 05/12/22 11:15 Discharge Plan Discharge Patient Disposition: Home Clinical Impression: Syncope, Anemia, Dehydration, mild, Hypomagnesemia Condition: Stable Prescriptions: No Action melatonin 5 mg tablet 5 mg PO BEDTIME felodipine 5 mg tablet extended release 24 hr 5 mg PO BID lovastatin 40 mg tablet 40 mg PO QAM clopidogrel 75 mg tablet 75 mg PO QAM aspirin 81 mg Tablet,Delayed Release (Dr/Ec) 81 mg PO QAM citalopram 20 mg tablet 20 mg PO QAM buspirone 10 mg tablet 10 mg PO BID PRN (Reason: Anxiety) omeprazole 20 mg capsule,delayed release(DR/EC) 20 mg PO DAILY albuterol sulfate [Ventolin HFA] 90 mcg/actuation HFA aerosol inhaler 2 puff inhalation Q6H PRN (Reason: Shortness Of Breath) senna 8.6 mg Tablet 8.6 mg PO DAILY PRN (Reason: Constipation) acetaminophen 325 mg Tablet 650 mg PO QID PRN (Reason: Pain) ipratropium-albuterol 0.5 mg-3 mg(2.5 mg base)/3 mL solution for nebulization 3 ml INHALATION Q8H albuterol sulfate 2.5 mg /3 mL (0.083 %) solution for nebulization 2.5 mg inhalation Q4H PRN (Reason: Shortness Of Breath Or Wheezing) levothyroxine 88 mcg tablet 88 mcg PO QAM Milk of Magnesia 400 mg/5 mL Suspension 30 ml PO DAILY PRN (Reason: Constipation) bisacodyl 10 mg Suppository 10 mg TX DAILY PRN (Reason: Constipation) Enema 19-7 gram/118 mL Enema 118 ml TX DAILY PRN (Reason: Constipation) budesonide 0.25 mg/2 mL suspension for nebulization 0.25 mg inhalation BID polyethylene glycol 3350 17 gram/dose Powder 17 g PO DAILY PRN (Reason: Constipation) losartan 50 mg Tablet 50 mg PO DAILY Qty: 30 0RF Vitamin B-12 1,000 mcg Tablet 500 mcg PO DAILY Qty: 30 0RF Discharge Orders: Discharge ED (Routine); Ordered 05/12/22 Ordered By: Luke Kirk Other Ambulatory Orders: ECG holter monitor 14 Days (Routine) Timeframe: 3 Days Facility: [facility] - Location: Radiology Ordered By: Luke Kirk Referrals: Pedro Venegas [Primary Care Provider] - Discharge Diet: Usual diet Discharge Activity: Resume usual activity Patient Instructions: Syncope (ED) Activity Restrictions/Additional Instructions: Thank you for visiting the emergency department. You were seen and evaluated for syncope. The exact cause of your symptoms is unclear however based on ED evaluation and in review of prior evaluation I do not believe that this requires inpatient management at this time. I will message case management for follow-up and we will schedule outpatient supervisor anodizing. Please follow-up with your primary care provider. Return to the emergency department for recurrent symptoms or anything else that you are concerned about a feel needs emergency department evaluation. Coding Level of Care Code ED Auto Engine Mechanic for John Paul Fwd Exam Comprehensive
[2022-05-12 10:56] VITALS: BP 140/47; PULSE 63; RESP 14; O2SAT 97
--- NOTE | 2022-05-12 11:00 | CTR_ITS ---
PROCEDURE INFORMATION: Exam: CT Head Without Contrast Exam date and time: 05/12/2022 11:35 AM Age: 77 years old Clinical indication: Syncope TECHNIQUE: Imaging protocol: Computed tomography of the head without contrast. Radiation optimization: All CT scans at this facility use at least one of these dose optimization techniques: automated exposure control; mA and/or kV adjustment per patient size (includes targeted exams where dose is matched to clinical indication); or iterative reconstruction. COMPARISON: CT head wo con* [id number] 04/18/2022 11:28 AM RADIATION DOSE METRICS: Total DLP (mGy-cm): 1046.4 FINDINGS: Brain: No acute intracranial hemorrhage. No edema. No mass effect. There are stable diffuse hypodense areas in the bilateral periventricular white matter suggestive of chronic small vessel ischemic changes. 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 Cerebral ventricles: No hydrocephalus. The ventricles and sulci are prominent in size in keeping with brain atrophy. Paranasal sinuses: Visualized sinuses are unremarkable. No fluid levels. Mastoid air cells: No mastoid effusion. Bones/joints: No acute fracture. No suspicious lytic or sclerotic bone lesions. Soft tissues: Unremarkable. CT/CT head wo con* [id number] IMPRESSION: Stable chronic findings with no evidence of acute intracranial hemorrhage, mass or acute infarction.
--- NOTE | 2022-05-12 11:00 | XRR_ITS ---
PROCEDURE INFORMATION: Exam: XR Chest Exam date and time: 05/12/2022 11:42 AM Age: 77 years old Clinical indication: Other: Syncope TECHNIQUE: Imaging protocol: Radiologic exam of the chest. Views: 1 view. COMPARISON: CR XR chest 2V* [id number] 04/18/2022 10:26 AM FINDINGS: Lungs: No consolidation. Stable large lung volumes with increased lucency in the upper lobes suggestive of emphysema. Pleural spaces: Unremarkable. No pleural effusion. No pneumothorax. Heart/Mediastinum: There is stable small hiatal hernia. No cardiomegaly. Bones/joints: No acute findings. XR/XR chest 1V portable [id number] IMPRESSION: Stable film with no acute findings.
[2022-05-12 11:23] LABS: Troponin(5th) Baseline 31 ng/L (0-10)
[2022-05-12 11:58] LABS: Magnesium 1.6 mg/dL (1.7-2.3); Thyroid Stimulating Hormone 1.91 uIU/mL (0.27-4.20)
[2022-05-12 12:19] LABS: Glucose Urine UA Trace (Normal); Ketones Urine 1+ (Negative); Protein Urine 1+ (Negative); Urine Appearance Clear (CLEAR); Urine Color Yellow (Yellow); pH Urine 6 (5-7)
[2022-05-12 12:20] LABS: Bilirubin Urine Neg (Negative); Blood Urine Neg (Negative); Nitrate Urine Negative (Negative)
[2022-05-12 12:21] LABS: Add Urine Culture? No; Add Urine Microscopic? YES; Bacteria Urine 1+ /hpf; Hyaline Casts Urine 0-4 /lpf; Leukocyte Esterase Urine Negative (Negative); Urobilinogen Urine Norm (Negative); WBC Urine 0-4 /hpf (0-5)
[2022-05-12] MEDS: sodium chloride 0.9% 500 ML 999 ML IV (12:40)
[2022-05-12] MEDS: magnesium sulfate premix 2 GM/50 ML PIGGYBACK IV (12:40)
--- NOTE | 2022-05-12 13:00 | ECG_ITS ---
[facility] Test Date: 2022-05-12 Pat Name: Maria Isabel Ho Department: Room: Gender: Female Roll Carrier: : 1945 Requested By: Luke Kirk Order Number: [id number] Bibiana MD: Chaz Stein M.D. Measurements Intervals [place] Rate: 65 P: 80 MI: 179 QRS: 75 QRSD: 73 T: 228 QT: 424 QTc: 443 Interpretive Statements SINUS RHYTHM LEFT VENTRICULAR HYPERTROPHY AND ST-T CHANGE [VOLTAGE CRITERIA PLUS ST/T ABNORMALITY] Compared to ECG 05/12/2022 09:58:33 Sinus bradycardia no longer present ST (T wave) deviation still present Electronically Signed On 05-14-2022 7:51:01 TUBULAR RIVETER by Chaz Stein M.D. [id number]
[2022-05-12 13:02] LABS: Troponin 5 2HR 28.25 ng/L (0-10)
[2022-05-12 13:04] LABS: Troponin 5 2HR Delta -2.75 ABS# (0-10)
== END 2022-05-12 14:02 | disposition home or self-care (01) ==
PROVIDERS: Physician Assistant; Emergency Provider Emergency Medicine; PCP Physician Assistant Medical
DX: R55 Syncope and collapse (principal); D64.9 Anemia, unspecified; E86.0 Dehydration; E83.42 Hypomagnesemia; Z79.02 Long term (current) use of antithrombotics/antiplatelets; Z79.82 Long term (current) use of aspirin; F17.210 Nicotine dependence, cigarettes, uncomplicated; E11.22 Type 2 diabetes mellitus with diabetic chronic kidney disease; I12.9 Hypertensive chronic kidney disease with stage 1 through stage 4 chronic kidney disease, or unspecified chronic kidney disease; N18.9 Chronic kidney disease, unspecified; J44.9 Chronic obstructive pulmonary disease, unspecified; E78.5 Hyperlipidemia, unspecified
CPT/HCPCS: 36415; 70450; 71045; 80053; 81001; 83735; 84443; 84484; 85025; 93005; 96374; 99285; J3475; J7040

== ENCOUNTER → 2022-08-16 08:44 | Outpatient (BNVA) | payer MEDICARE, MEDICAID, SELFPAY | PROVIDERS: PCP Internal Medicine; Visit Provider Internal Medicine Cardiovascular Disease | DX: R55 Syncope and collapse (principal); F17.200 Nicotine dependence, unspecified, uncomplicated; E78.5 Hyperlipidemia, unspecified; J44.9 Chronic obstructive pulmonary disease, unspecified; R29.6 Repeated falls; I12.9 Hypertensive chronic kidney disease with stage 1 through stage 4 chronic kidney disease, or unspecified chronic kidney disease; E11.22 Type 2 diabetes mellitus with diabetic chronic kidney disease; N18.9 Chronic kidney disease, unspecified | CPT/HCPCS: 99214 ==

== ENCOUNTER → 2023-05-07 10:53 | Outpatient (BNVA) | payer MEDICARE, MEDICAID, SELFPAY | PROVIDERS: PCP Internal Medicine; Visit Provider Internal Medicine Cardiovascular Disease | DX: R55 Syncope and collapse (principal); R00.1 Bradycardia, unspecified; F17.200 Nicotine dependence, unspecified, uncomplicated; I73.9 Peripheral vascular disease, unspecified; Z98.890 Other specified postprocedural states; J43.8 Other emphysema; E78.5 Hyperlipidemia, unspecified; I12.9 Hypertensive chronic kidney disease with stage 1 through stage 4 chronic kidney disease, or unspecified chronic kidney disease; E11.22 Type 2 diabetes mellitus with diabetic chronic kidney disease; N18.30 Chronic kidney disease, stage 3 unspecified | CPT/HCPCS: 99214 ==

== ENCOUNTER 2023-06-12 10:04 | Emergency (ER) | payer MEDICARE, MEDICAID, SELFPAY ==
[2023-06-12] VITALS (16 sets, daily range): BP systolic 154–188; BP diastolic 59–91; PULSE 69–75; RESP 17; TEMP 36.5; O2SAT 95–97; BMI 18.2
--- NOTE | 2023-06-12 10:17 | ECG_ITS ---
[facility] Test Date: 2023-06-12 Pat Name: Maria Isabel Ho Department: Room: Gender: Female Executive Candidate Developer: : 1945 Requested By: Adonis Shay Order Number: [id number] Bibiana MD: Gris Hughes M.D. Measurements Intervals [place] Rate: 69 P: 71 IA: 157 QRS: 66 QRSD: 69 T: 89 QT: 380 QTc: 409 Interpretive Statements SINUS RHYTHM MODERATE VOLTAGE CRITERIA FOR LVH, CONSIDER NORMAL VARIANT [MEETS CRITERIA IN ONE OF: R(aVL), S(V1), R(V5), R(V5/V6)+S(V1)] NONSPECIFIC T-WAVE ABNORMALITY Compared to ECG 05/12/2022 13:07:02 T-wave abnormality now present ST (T wave) deviation no longer present Electronically Signed On 06-12-2023 10:54:11 LITIGATION SUPPORT ANALYST by Gris Hughes M.D. [id number]
--- NOTE | 2023-06-12 10:21 | ED_ITS ---
HPI - Abdominal Pain 2 General: Chief Complaint: Abdominal Pain Stated Complaint: abd pain Time Seen by Provider: 06/12/23 10:09 Source: patient Mode of arrival: EMS History of Present Illness: 78-year-old female presents emergency ro om complaining of not feeling well. She states she has been ill for the last week she is lives at a alf she cannot really tell me what precipitated her coming to the ER today. She states she just got sick but she denies any vomiting or diarrhea vague abdominal pain she states she has had frequent urinary tract infections in the past. Denies any hematemesis or coffee-ground emesis although she not entirely sure she understands the question. MD elicited complaint: abdominal pain Associated Symptoms: Denies chills, dysuria and fever(s) Review of Systems 2 Const: Denies: fever(s) or chills Card: Denies: chest pain Resp: Denies: dyspnea GI: Denies: abdominal pain : Denies: dysuria, urinary frequency or urinary urgency Musc: Denies: neck pain or back pain Skin/Breast: Denies: rash PFSH ED 2 PFSH: Medical History Peripheral arterial disease with history of revascularization Bradycardia Chronic hyponatremia Exertional dyspnea COPD exacerbation Orthostatic hypotension Syncope COPD (chronic obstructive pulmonary disease) Hx of type 2 diabetes mellitus Peripheral vascular disease Hx of chest pain History of hypertension Frequent falls Hx of hyperlipidemia Chronic back pain Postmenopausal Impaired physical mobility Hx of renal calculi Smoker Chronic kidney disease (CKD) Surgical History Hx of tubal ligation Family History Grandmother Clotting disorder Brother Cancer Diabetes Stroke Son Chronic kidney disease (CKD) Mother Diabetes Father Stroke Denies family history of CAD (coronary artery disease) Dementia Suicide Anesthesia complication Bleeding disorder Lung disease Social History Smoking and tobacco/nicotine status: current every day tobacco/nicotine user Alcohol intake: never Substance/Drug Use: never Physical Exam 2 Const: COMMON NORMALS: no acute distress GENERAL APPEARANCE: cooperative and comfortable ORIENTATION/CONSCIOUSNESS: Yes awake, Yes oriented to person, Yes oriented to place and Yes oriented to time HENMT: COMMON NORMALS: normocephalic, atraumatic and hearing grossly normal bilaterally HEAD & SCALP: normocephalic and atraumatic Resp: COMMON NORMALS: normal respiratory effort, No retractions, No use of accessory muscles and clear to auscultation bilaterally AUSCULTATION: clear to auscultation bilaterally Cardio: COMMON NORMALS: regular rate, regular rhythm and No murmurs present (Cardio) RATE: regular rate RHYTHM: regular rhythm GI: COMMON NORMALS: Soft to palpation and No hepatosplenomegaly present A USCULTATION: Yes normoactive bowel sounds PALPATION: Yes Soft to palpation, No Tenderness to palpation present (GI), No Guarding due to palpation present (GI) and Yes No hepatosplenomegaly present Extremity: COMMON NORMALS: normal to inspection, capillary refill normal, no clubbing, cyanosis or edema, no calf tenderness and no pedal edema Neuro: SENSORIUM/ORIENTATION: Yes oriented to person, Yes oriented to place and Yes oriented to time Skin: COMMON NORMALS: no rashes or lesions noted GENERAL SKIN EXAM: no rashes or lesions noted Course 2 Vital Signs: Vital signs: Vital Signs Temperature 97.7 F 06/12/23 10:05 Pulse Rate 71 06/12/23 16:30 Respiratory Rate 17 06/12/23 10:05 Blood Pressure 188/74 06/12/23 17:00 Pulse Oximetry 95 06/12/23 17:00 Oxygen Delivery Me thod Room Air 06/12/23 17:00 MDM - Abdominal Pain Medical Decision Making CT shows questionable area at the antrum of the stomach. Later in the visit was advised by family members who came that she had had endoscopy earlier in the week eventually we were able to get reports from their they reported normal findings in the distal part of the stomach and proximal duodenum they did not do any biopsies in that region. I reviewed the findings and the CT with Dr. Cruz he recommends no further intervention at this time since he just had the endoscopy a couple days ago he would not recommend repeat EGD. Patient is symptom-free at this time discharge back to the alf follow-up with primary care Medical Records I reviewed the patient's medical records. Lab Data I reviewed the patient's lab results. 06/12/23 10:34 06/12/23 10:34 Labs/Radiology: Laboratory Results WBC 4.86 10^3/uL (3.29-11.43) 06/12/23 10:34 RBC 2.93 10^6/uL (3.85-5.65) L 06/12/23 10:34 Hgb 8.20 g/dL (11.27-16.99) L 06/12/23 10:34 Hct 25.4 % (36-47) L 06/12/23 10:34 MCV 86.7 fl (85-98) 06/12/23 10:34 MCH 28.0 pg (27-33) 06/12/23 10:34 MCHC 32.3 g/dL (30-55) 06/12/23 10:34 RDW 14.9 % (12.1-15.1) 06/12/23 10:34 Plt Count 221 10^3/cmm (157-399) 06/12/23 10:34 MPV 11.6 fL (7.4-10.4) H 06/12/23 10:34 Neut % (Auto) 83.0 % 06/12/23 10:34 Lymph % (Auto) 8.8 % 06/12/23 10:34 [place] % (Auto) 7.0 % 06/12/23 10:34 Eos % (Auto) 0.4 % 06/12/23 10:34 Baso % (Auto) 0.2 % 06/12/23 10:34 Neut # (Auto) 4.03 10^3/uL (1.8-7.7) 06/12/23 10:34 Lymph # (Auto) 0.4 10^3/uL (0.8-4.8) L 06/12/23 10:34 [place] # (Auto) 0.3 10^3/uL (0.2-0.9) 06/12/23 10:34 Eos # (Auto) 0.0 10^3/uL (0.0-0.8) 06/12/23 10:34 Baso # (Auto) 0.0 10^3/uL (0.0-0.1) 06/12/23 10:34 Nucleated RBC % (auto) 0 % 06/12/23 10:34 Nucleated RBCs # 0.0 /100WBC 06/12/23 10:34 Sodium 132 mmol/L (136-145) L 06/12/23 10:34 Potassium 3.9 mmol/L (3.5-5.1) 06/12/23 10:34 Chloride 102 mmol/L (98-107) 06/12/23 10:34 Carbon Dioxide 17 mmol/L (22-29) L 06/12/23 10:34 Anion Gap 16.9 (5-19) 06/12/23 10:34 BUN 19 mg/dL (8-23) 06/12/23 10:34 Creatinine 1.6 mg/dL (0.5-0.9) H 06/12/23 10:34 GFR Calculation Not Reportable 06/12/23 10:34 Glucose 121 mg/dL (65-115) H 06/12/23 10:34 Calculated Osmolality 278 mOsm/kg (285-295) L 06/12/23 10:34 Calcium 7.8 mg/dL (8.5-10.5) L 06/12/23 10:34 Total Bilirubin 0.2 mg/dL (0.15-1.2) 06/12/23 10:34 AST 14 U/L (0-32) 06/12/23 10:34 ALT 8 U/L (0-33) 06/12/23 10:34 Alkaline Phosphatase 70 U/L (35-105) 06/12/23 10:34 Troponin T Baseline 51 ng/L (0-10) H 06/12/23 10:34 Troponin T 120 Minute 45.59 ng/L (0-10) H 06/12/23 12:20 Delta Troponin T -5.41 ABS# (0-10) L 06/12/23 12:20 Troponin T Hi Sens 6Hr 49.16 ng/L (0-10) H 06/12/23 16:43 Troponin T Hi Sens 6Hr Delta -1.84 ng/L (0-12) L 06/12/23 16:43 Total Protein 5.8 g/dL (6.6-8.7) L 06/12/23 10:34 Albumin 2.9 g/dL (3.5-5.2) L 06/12/23 10:34 Globulin 2.9 g/dL (1.3-4.6) 06/12/23 10:34 Lipase 51 U/L (13-60) 06/12/23 10:34 Urine Color Yellow (Yellow) 06/12/23 11:55 Urine Appearance Sl hazy (CLEAR) A 06/12/23 11:55 Urine pH 5 (5-7) 06/12/23 11:55 Ur Specific [place] 1.015 (1.005-1.030) 06/12/23 11:55 Urine Protein 1+ (Negative) H 06/12/23 11:55 Urine Glucose (UA) Norm (Normal) 06/12/23 11:55 Urine Ketones 1+ (Negative) H 06/12/23 11:55 Urine Blood Neg (Negative) 06/12/23 11:55 Urine Nitrate Negative (Negative) 06/12/23 11:55 Urine Bilirubin Neg (Negative) 06/12/23 11:55 Urine Urobilinogen Norm mg/dL (Negative) 06/12/23 11:55 Ur Leukocyte Esterase 2+ (Negative) H 06/12/23 11:55 Urine RBC 5-10 /hpf (0-2) H 06/12/23 11:55 Urine WBC 5-10 /hpf (0-5) H 06/12/23 11:55 Ur Squamous Epith Cells 5-10 /hpf (0-5) H 06/12/23 11:55 Amorphous Sediment Not Reportable 06/12/23 11:55 Urine Bacteria Trace /hpf (NONE) 06/12/23 11:55 Fine Granular Casts 5-10 /lpf H 06/12/23 11:55 Urine Mucus 1+ /hpf 06/12/23 11:55 All radiology interpretation(s) finalized by discharge Discharge Plan Discharge Patient Disposition: Home Clinical Impression: Abdominal pain Condition: Stable Prescriptions: No Action hydroxyzine HCl 10 mg tablet 10 mg PO QPM amlodipine 2.5 mg tablet 2.5 mg PO DAILY ferrous sulfate 325 mg (65 mg iron) tablet 325 mg PO DAILY losartan 50 mg tablet 50 mg PO BID pantoprazole 40 mg tablet,delayed release (DR/EC) 40 mg PO BID hydralazine 50 mg tablet 50 mg PO TID Qty: 90 5RF lovastatin 40 mg tablet 40 mg PO QAM clopidogrel 75 mg tablet 75 mg PO QAM aspirin 81 mg Tablet,Delayed Release (Dr/Ec) 81 mg PO QAM albuterol sulfate [Ventolin HFA] 90 mcg/actuation HFA aerosol inhaler 2 puff inhalation Q6H PRN (Reason: Shortness Of Breath) sennosides [senna] 8.6 mg Tablet 8.6 mg PO DAILY PRN (Reason: Constipation) albuterol sulfate 2.5 mg /3 mL (0.083 %) solution for nebulization 2.5 mg inhalation Q4H PRN (Reason: Shortness Of Breath Or Wheezing) levothyroxine 88 mcg tablet 88 mcg PO QAM magnesium hydroxide [Milk of Magnesia] 400 mg/5 mL Suspension 30 ml PO DAILY PRN (Reason: Constipation) bisacodyl 10 mg Suppository [address] DAILY PRN (Reason: Constipation) polyethylene glycol 3350 17 gram/dose Powder 17 g PO DAILY PRN (Reason: Constipation) cyanocobalamin (vitamin B-12) 500 mcg Tablet 500 mcg PO DAILY Mylanta 200-200-20 mg/5 mL Suspension 15 ml PO QID PRN (Reason: Constipation) Rx Instructions: administer between meals and at bedtime Lexapro 10 mg Tablet 10 mg PO DAILY melatonin 10 mg Tablet 10 mg PO BEDTIME Artificial Tears (cmc) 1 % Drops 2 drp OPHTHALMIC (EYE) BID naloxone 2 mg/2 mL Syringe Kit 2 mg IM Q3M PRN (Reason: Opioid Overdose) Rx Instructions: NTExceed 10 mg total dose/episode Discharge Orders: Discharge ED (Routine); Ordered 06/12/23 Ordered By: Adonis Harrison Referrals: Jaret Estrella MD [Primary Care Provider] - Patient Instructions: Abdominal Pain (ED), Opioid Safety, Pain Management Activity Restrictions/Additional Instructions: Thank you for choosing [facility] for your healthcare needs today. Please realize this is an emergency room and that we are providing you with a medical screening exam and this may not be complete and all inclusive of all the testing and or work up that you may need to determine your ailment or severity of your illness. It is very important that you follow up as instructed or that you return to the Emergency Department should you have concerns or if your condition changes or worsens in any way. CT showed some abnormalities in the distal portion of the stomach however we were eventually able to secure records from [place] which showed that the EGD done recently was normal. Hemoglobin is low and should be monitored at the alf, does not require blood transfusion at this time. Continue medications that you are previously prescribed. Coding Level of Care Code ED [employer] Police Officer for [employer] Jones
[2023-06-12 10:42] LABS: Basophils % 0.2 %; Eosinophils % 0.4 %; Hematocrit 25.4 % (36-47); Lymphocytes # 0.4 10^3/uL (0.8-4.8); Lymphocytes % 8.8 %; Mean Corpuscular HGB Conc 32.3 g/dL (30-55); Mean Corpuscular Volume 86.7 fl (85-98); Mean Platelet Volume 11.6 fL (7.4-10.4); Monocytes # 0.3 10^3/uL (0.2-0.9); Neutrophils # 4.03 10^3/uL (1.8-7.7); Nucleated Red Blood Cells % 0 %; Platelet Count 221 10^3/cmm (157-399); Red Blood Count 2.93 10^6/uL (3.85-5.65); Red Cell Distribution Width 14.9 % (12.1-15.1); White Blood Count 4.86 10^3/uL (3.29-11.43)
[2023-06-12 11:10] LABS: Alanine Aminotransferase 8 U/L (0-33); Albumin Level 2.9 g/dL (3.5-5.2); Alkaline Phosphatase 70 U/L (35-105); Anion Gap 16.9 (5-19); Aspartate Amino Transferase 14 U/L (0-32); Blood Urea Nitrogen 19 mg/dL (8-23); Calcium 7.8 mg/dL (8.5-10.5); Carbon Dioxide 17 mmol/L (22-29); Chloride 102 mmol/L (98-107); Globulin 2.9 g/dL (1.3-4.6); Glucose 121 mg/dL (65-115); Lipase 51 U/L (13-60); Osmolality Calculated 278 mOsm/kg (285-295); Potassium 3.9 mmol/L (3.5-5.1); Sodium 132 mmol/L (136-145); Total Bilirubin 0.2 mg/dL (0.15-1.2); Total Protein 5.8 g/dL (6.6-8.7)
[2023-06-12 11:13] LABS: Troponin(5th) Baseline 51 ng/L (0-10)
--- NOTE | 2023-06-12 12:09 | ECG_ITS ---
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 Measurements Intervals [place] Rate: 69 P: 74 [place]: 151 QRS: 65 QRSD: 71 T: 98 QT: 377 QTc: 404 Interpretive Statements SINUS RHYTHM POSSIBLE LEFT ATRIAL ENLARGEMENT [-0.1mV P-WAVE IN V1/V2] POSSIBLE LEFT VENTRICULAR HYPERTROPHY [VOLTAGE CRITERIA PLUS LAE OR QRS WIDENING] NONSPECIFIC T-WAVE ABNORMALITY Compared to ECG 06/12/2023 10:17:59 No significant changes Electronically Signed On 06-12-2023 20:16:38 MOTOR EQUIPMENT CAPTAIN by Gris Hughes M.D. [id number]
[2023-06-12 12:24] LABS: Add Urine Microscopic? YES; Bilirubin Urine Neg (Negative); Blood Urine Neg (Negative); Glucose Urine UA Norm (Normal); Ketones Urine 1+ (Negative); Leukocyte Esterase Urine 2+ (Negative); Nitrate Urine Negative (Negative); Protein Urine 1+ (Negative); Specific Gravity, Urine 1.015 (1.005-1.030); Urine Appearance SL Hazy (CLEAR); Urine Color Yellow (Yellow); Urobilinogen Urine Norm (Negative); pH Urine 5 (5-7)
[2023-06-12 12:26] LABS: Bacteria Urine TRACE /hpf; Mucus Urine 1+ /hpf
[2023-06-12 12:27] LABS: Add Urine Culture? No
[2023-06-12 12:44] LABS: Troponin 5 2HR 45.59 ng/L (0-10)
[2023-06-12 12:46] LABS: Troponin 5 2HR Delta -5.41 ABS# (0-10)
--- NOTE | 2023-06-12 12:48 | CT_ITS ---
WS: [id number] CT ABDOMEN PELVIS TECHNIQUE: Contrast-enhanced CT of the abdomen and pelvis with coronal and sagittal reformatted image s. CLINICAL INFORMATION: abd pain COMPARISON: CT 04/19/2022 DLP: 326.[address] scans at [facility] use at least one of these dose optimization techniques: automated e xposure control; mA and/or kV adjustment per patient size (includes targeted exams where dose is matc hed to clinical indication); or iterative reconstruction. FINDINGS: Large esophageal hiatal hernia with partial intrathoracic stomach. Diffuse gastric wall thi ckening with edema involving the distal antrum extending to the pylorus with suggestion of an intralu jayjay enhancing nodule or polypoid lesion. Consider possible intussusception. Carcinoma not excluded. Recommend endoscopy in further evaluation. Diffuse fatty infiltration of the liver. Stable 1.1 cm RIGHT hepatic cyst or hemangioma. Hepatomegaly . Gallbladder is contracted. Cholelithiasis. Normal portal vein and splenic vein. Fatty atrophy of th e pancreas. Slight prominent common bile duct measuring 7.6 mm appears unchanged. Splenic artery calc ification. LEFT renal cyst. Bilateral renal cortical atrophy. Densely calcified abdominal aorta with narrowing is unchanged in appearance. Densely calcified iliac arteries. Small pericardial effusion. Tiny LEFT and trace RIGHT pleural fluid. Slight atelectasis LEFT lower lo be. Fibroid uterus. IMPRESSION: 1. Large esophageal hernia with partial intrathoracic stomach similar to previous. 2. Gastric wall thickening with edema involving the distal stomach with suggestion of an intralumina l enhancing lesion or polyp with possible intussusception. Recommend further evaluation with endoscop y. Neoplasm not excluded. 3. Small pericardial effusion. 4. Small LEFT and trace RIGHT pleural fluid. 5. Cholelithiasis. Gallbladder is contracted. 6. Fibroid uterus. 7. Dense vascular calcification. Notified Adonis Harrison DO at 06/12/2023 2:35 PM.
[2023-06-12] MEDS: iohexol 350 mg/mL 500 mL Btl (per mL) IV (13:27)
--- NOTE | 2023-06-12 16:11 | ECG_ITS ---
[facility] Test Date: 2023-06-12 Pat Name: Maria Isabel Ho Department: Room: Gender: Female Menagerie Superintendent: : 1945 Requested By: Adonis Shay Order Number: [id number] Bibiana MD: Gris Hughes M.D. Measurements Intervals [place] Rate: 73 P: 80 [place]: 159 QRS: 64 QRSD: 70 T: 109 QT: 387 QTc: 427 Interpretive Statements SINUS RHYTHM POSSIBLE LEFT ATRIAL ENLARGEMENT [-0.1mV P-WAVE IN V1/V2] POSSIBLE LEFT VENTRICULAR HYPERTROPHY [VOLTAGE CRITERIA PLUS LAE OR QRS WIDENING] NONSPECIFIC T-WAVE ABNORMALITY Compared to ECG 06/12/2023 12:09:53 No significant changes Electronically Signed On 06-12-2023 20:20:12 CLAM DIGGER by Gris Hughes M.D. [id number]
[2023-06-12 17:26] LABS: Troponin 5 6HR 49.16 ng/L (0-10)
[2023-06-12 17:31] LABS: Troponin 5 6HR Delta -1.84 ng/L (0-12)
== END 2023-06-12 17:21 | disposition home or self-care (01) ==
PROVIDERS: Emergency Provider Family Medicine; PCP Internal Medicine
DX: R10.9 Unspecified abdominal pain (principal); Z79.02 Long term (current) use of antithrombotics/antiplatelets; Z79.82 Long term (current) use of aspirin; Z72.0 Tobacco use; J44.9 Chronic obstructive pulmonary disease, unspecified; E78.5 Hyperlipidemia, unspecified; I12.9 Hypertensive chronic kidney disease with stage 1 through stage 4 chronic kidney disease, or unspecified chronic kidney disease; E11.22 Type 2 diabetes mellitus with diabetic chronic kidney disease; N18.9 Chronic kidney disease, unspecified
CPT/HCPCS: 36415; 74177; 80053; 81001; 83690; 84484; 85025; 93005; 99285; Q9967

== ENCOUNTER 2023-06-19 19:31 | Emergency (ER) | payer MEDICARE, MEDICAID, SELFPAY ==
[2023-06-19 19:32] VITALS: BP 173/68; PULSE 76; RESP 18; TEMP 36.4; O2SAT 97; BMI 23.9
--- NOTE | 2023-06-19 19:54 | ED_ITS ---
HPI - Abdominal Pain 2 General: Chief Complaint: Abdominal Pain Stated Complaint: Abd pain Time Seen by Provider: 06/19/23 19:34 Source: patient Mode of arrival: ambulatory Limitations: no limitations History of Present Illness: 78-year-old female with a history of abd ominal pain she had a hiatal hernia she had a CT scan here a week ago prior to that earlier this month she had a endoscopic at [facility]. Patient states she had a tonight and had some abdominal pain initially said she is epigastric now she tell me her pains lower and its actually improved greatly states pain is only 2 out of 10 [address] jail did not have any GI cocktail and center appear she had no vomiting no diarrhea Associated Symptoms: Denies chills, diarrhea, fever(s), nausea and vomiting Review of Systems 2 Const: Denies: fever(s) or chills Eyes: Denies: blurry vision or eye discomfort ENMT: Denies: throat pain or dental pain Card: Denies: chest pain Resp: Denies: dyspnea GI: Reports: abdominal pain; Denies: nausea, vomiting or diarrhea Musc: Denies: neck pain or back pain Skin/Breast: Denies: rash Neuro: Denies: headache(s) PFSH ED 2 PFSH: Medical History Peripheral arterial disease with history of revascularization Bradycardia Chronic hyponatremia Exertional dyspnea COPD exacerbation Orthostatic hypotension Syncope COPD (chronic obstructive pulmonary disease) Hx of type 2 diabetes mellitus Peripheral vascular disease Hx of chest pain History of hypertension Frequent falls Hx of hyperlipidemia Chronic back pain Postmenopausal Impaired physical mobility Hx of renal calculi Smoker Chronic kidney disease (CKD) Surgical History Hx of tubal ligation Family History Grandmother Clotting disorder Brother Cancer Diabetes Stroke Son Chronic kidney disease (CKD) Mother Diabetes Father Stroke Denies family history of CAD (coronary artery disease) Dementia Suicide Anesthesia complication Bleeding disorder Lung disease Social History Smoking and tobacco/nicotine status: current every day tobacco/nicotine user Alcohol intake: never Substance/Drug Use: never Physical Exam 2 Const: COMMON NORMALS: no acute distress, patient oriented x3 and healthy appearing HENMT: COMMON NORMALS: normocephalic and atraumatic HEAD & SCALP: n ormocephalic and atraumatic Eye: COMMON NORMALS: Equal, round and reactive pupils present and EOMs intact bilaterally PUPIL: Yes Equal, round and reactive pupils present Neck/C-Spine: COMMON NORMALS: full ROM and supple Chest: COMMONS NORMALS: normal inspection of the chest and normal palpation of entire chest wall Resp: COMMON NORMALS: normal respiratory effort, No retractions, No use of accessory muscles and clear to auscultation bilaterally AUSCULTATION: clear to auscultation bilaterally Cardio: COMMON NORMALS: regular rate, regular rhythm and No murmurs present (Cardio) RATE: regular rate RHYTHM: regular rhythm GI: COMMON NORMALS: Normal to inspection, nondistended, normoactive bowel sounds present, Soft to palpation, non-tender and no masses PALPATION: Yes Soft to palpation Extremity: COMMON NORMALS: normal to inspection and full ROM Neuro: COMMON NORMALS: patient oriented x3, moves all extremities and no focal motor deficits Psych: COMMON NORMALS: mental status grossly normal, Normal thought process present and cooperative THOUGHT PROCESS: Normal thought process present Skin: COMMON NORMALS: no rashes or lesions noted and no wounds GENERAL SKIN EXAM: no rashes or lesions noted Course 2 Vital Signs: Vital signs: Vital Signs Temperature 97.5 F L 06/19/23 19:32 Pulse Rate 72 06/19/23 21:37 Respiratory Rate 16 06/19/23 21:37 Blood Pressure 172/110 06/19/23 21:37 Pulse Oximetry 94 06/19/23 21:37 Oxygen Delivery Me thod Room Air 06/19/23 19:32 MDM - Abdominal Pain Medical Decision Making Patient presents here with abdominal pain patient's white count electrolytes here are normal her exam here is benign she has no severe tenderness she had no vomiting tonight she has a known hiatal hernia she had a CT scan done here a week ago she had an EGD done little over a week ago as well at [place]. Did speak to son's wanted her to follow-up with surgery down here instead of GI there we will get her follow-up with Dr. Cruz here. She is in no distress here no signs of acute surgical abdomen she is stable for discharge back to jail we will place her on Protonix along with pain meds nausea medicine she is return if worsening they understand agree to plan Medical Records I reviewed the patient's medical records. Lab Data I reviewed the patient's lab results. 06/19/23 19:57 06/19/23 19:57 Labs/Radiology: Laboratory Results WBC 3.04 10^3/uL (3.29-11.43) L 06/19/23 19:57 RBC 2.86 10^6/uL (3.85-5.65) L 06/19/23 19:57 Hgb 7.80 g/dL (11.27-16.99) L 06/19/23 19:57 Hct 25.0 % (36-47) L 06/19/23 19:57 MCV 87.4 fl (85-98) 06/19/23 19:57 MCH 27.3 pg (27-33) 06/19/23 19:57 MCHC 31.2 g/dL (30-55) 06/19/23 19:57 RDW 15.7 % (12.1-15.1) H 06/19/23 19:57 Plt Count 243 10^3/cmm (157-399) 06/19/23 19:57 MPV 12.1 fL (7.4-10.4) H 06/19/23 19:57 Neut % (Auto) 65.8 % 06/19/23 19:57 Lymph % (Auto) 19.4 % 06/19/23 19:57 [place] % (Auto) 12.2 % 06/19/23 19:57 Eos % (Auto) 1.6 % 06/19/23 19:57 Baso % (Auto) 0.7 % 06/19/23 19:57 Neut # (Auto) 2.00 10^3/uL (1.8-7.7) 06/19/23 19:57 Lymph # (Auto) 0.6 10^3/uL (0.8-4.8) L 06/19/23 19:57 [place] # (Auto) 0.4 10^3/uL (0.2-0.9) 06/19/23 19:57 Eos # (Auto) 0.1 10^3/uL (0.0-0.8) 06/19/23 19:57 Baso # (Auto) 0.0 10^3/uL (0.0-0.1) 06/19/23 19:57 Nucleated RBC % (auto) 0 % 06/19/23 19:57 Nucleated RBCs # 0.0 /100WBC 06/19/23 19:57 Sodium 130 mmol/L (136-145) L 06/19/23 19:57 Potassium 3.9 mmol/L (3.5-5.1) 06/19/23 19:57 Chloride 100 mmol/L (98-107) 06/19/23 19:57 Carbon Dioxide 20 mmol/L (22-29) L 06/19/23 19:57 Anion Gap 13.9 (5-19) 06/19/23 19:57 BUN 22 mg/dL (8-23) 06/19/23 19:57 Creatinine 1.4 mg/dL (0.5-0.9) H 06/19/23 19:57 GFR Calculation Not Reportable 06/19/23 19:57 Glucose 113 mg/dL (65-115) 06/19/23 19:57 Calculated Osmolality 274 mOsm/kg (285-295) L 06/19/23 19:57 Calcium 7.8 mg/dL (8.5-10.5) L 06/19/23 19:57 Total Bilirubin 0.2 mg/dL (0.15-1.2) 06/19/23 19:57 AST 15 U/L (0-32) 06/19/23 19:57 ALT 8 U/L (0-33) 06/19/23 19:57 Alkaline Phosphatase 87 U/L (35-105) 06/19/23 19:57 Total Protein 6.3 g/dL (6.6-8.7) L 06/19/23 19:57 Albumin 2.8 g/dL (3.5-5.2) L 06/19/23 19:57 Globulin 3.5 g/dL (1.3-4.6) 06/19/23 19:57 Lipase 38 U/L (13-60) 06/19/23 19:57 Urine Color Yellow (Yellow) 06/19/23 20:25 Urine Appearance Clear (CLEAR) 06/19/23 20:25 Urine pH 5 (5-7) 06/19/23 20:25 Ur Specific [place] 1.010 (1.005-1.030) 06/19/23 20:25 Urine Protein Trace (Negative) 06/19/23 20:25 Urine Glucose (UA) Norm (Normal) 06/19/23 20:25 Urine Ketones Negative (Negative) 06/19/23 20:25 Urine Blood Neg (Negative) 06/19/23 20:25 Urine Nitrate Negative (Negative) 06/19/23 20:25 Urine Bilirubin Neg (Negative) 06/19/23 20:25 Urine Urobilinogen Neg mg/dL (Negative) 06/19/23 20:25 Ur Leukocyte Esterase Negative (Negative) 06/19/23 20:25 Urine RBC None /hpf (0-2) 06/19/23 20:25 Urine WBC 0-4 /hpf (0-5) H 06/19/23 20:25 Ur Squamous Epith Cells None /hpf (0-5) 06/19/23 20:25 Amorphous Sediment Not Reportable 06/19/23 20:25 Urine Bacteria Trace /hpf (NONE) 06/19/23 20:25 No radiology studies performed this visit Discharge Plan Discharge Patient Disposition: Home Clinical Impression: Abdominal pain Qualifiers: Abdominal location: generalized Qualified Code(s): R10.84 - Generalized abdominal pain Condition: Stable Prescriptions: New Protonix 40 mg tablet,delayed release (DR/EC) 40 mg PO DAILY Qty: 60 0RF hydrocodone-acetaminophen 5-325 mg tablet 1 tab PO Q6H PRN (Reason: pain) Qty: 14 0RF ondansetron 4 mg tablet,disintegrating 4 mg PO Q6H PRN (Reason: nausea and vomiting) Qty: 14 0RF No Action hydroxyzine HCl 10 mg tablet 10 mg PO QPM amlodipine 2.5 mg tablet 2.5 mg PO DAILY ferrous sulfate 325 mg (65 mg iron) tablet 325 mg PO DAILY losartan 50 mg tablet 50 mg PO BID pantoprazole 40 mg tablet,delayed release (DR/EC) 40 mg PO BID hydralazine 50 mg tablet 50 mg PO TID Qty: 90 5RF lovastatin 40 mg tablet 40 mg PO QAM clopidogrel 75 mg tablet 75 mg PO QAM aspirin 81 mg Tablet,Delayed Release (Dr/Ec) 81 mg PO QAM albuterol sulfate [Ventolin HFA] 90 mcg/actuation HFA aerosol inhaler 2 puff inhalation Q6H PRN (Reason: Shortness Of Breath) sennosides [senna] 8.6 mg Tablet 8.6 mg PO DAILY PRN (Reason: Constipation) albuterol sulfate 2.5 mg /3 mL (0.083 %) solution for nebulization 2.5 mg inhalation Q4H PRN (Reason: Shortness Of Breath Or Wheezing) levothyroxine 88 mcg tablet 88 mcg PO QAM magnesium hydroxide [Milk of Magnesia] 400 mg/5 mL Suspension 30 ml PO DAILY PRN (Reason: Constipation) bisacodyl 10 mg Suppository 10 mg LA DAILY PRN (Reason: Constipation) polyethylene glycol 3350 17 gram/dose Powder 17 g PO DAILY PRN (Reason: Constipation) cyanocobalamin (vitamin B-12) 500 mcg Tablet 500 mcg PO DAILY Mylanta 200-200-20 mg/5 mL Suspension 15 ml PO QID PRN (Reason: Constipation) Rx Instructions: administer between meals and at bedtime Lexapro 10 mg Tablet 10 mg PO DAILY melatonin 10 mg Tablet 10 mg PO BEDTIME Artificial Tears (cmc) 1 % Drops 2 drp OPHTHALMIC (EYE) BID naloxone 2 mg/2 mL Syringe Kit 2 mg IM Q3M PRN (Reason: Opioid Overdose) Rx Instructions: NTExceed 10 mg total dose/episode Discharge Orders: Discharge ED (Routine); Ordered 06/19/23 Ordered By: Yazmin Chahal Referrals: Jaret Estrella MD [Primary Care Provider] - 1-3 days Discharge Diet: Advance as tolerated Discharge Activity: Resume usual activity Patient Instructions: Abdominal Pain (ED) Coding Level of Care Code ED 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
[2023-06-19] MEDS: sodium chloride 0.9% 1,000 ML 999 ML IV (20:03)
[2023-06-19] MEDS: lidocaine 2% viscous 15 ML, aluminum-mag hydrox-simethicon 30 ML, sucralfate oral liq 1 GM PO (20:03)
[2023-06-19 20:54] LABS: Basophils % 0.7 %; Eosinophils # 0.1 10^3/uL (0.0-0.8); Eosinophils % 1.6 %; Lymphocytes # 0.6 10^3/uL (0.8-4.8); Lymphocytes % 19.4 %; Mean Corpuscular HGB Conc 31.2 g/dL (30-55); Mean Corpuscular Hemoglobin 27.3 pg (27-33); Mean Corpuscular Volume 87.4 fl (85-98); Mean Platelet Volume 12.1 fL (7.4-10.4); Monocytes # 0.4 10^3/uL (0.2-0.9); Monocytes % 12.2 %; Neutrophils % 65.8 %; Nucleated Red Blood Cells % 0 %; Platelet Count 243 10^3/cmm (157-399); Red Blood Count 2.86 10^6/uL (3.85-5.65); Red Cell Distribution Width 15.7 % (12.1-15.1); White Blood Count 3.04 10^3/uL (3.29-11.43)
[2023-06-19 20:55] LABS: Add Urine Culture? No; Add Urine Microscopic? YES; Bacteria Urine TRACE /hpf; Bilirubin Urine Neg (Negative); Blood Urine Neg (Negative); Glucose Urine UA Norm (Normal); Ketones Urine Negative (Negative); Leukocyte Esterase Urine Negative (Negative); Nitrate Urine Negative (Negative); Protein Urine Trace (Negative); Urine Appearance Clear (CLEAR); Urine Color Yellow (Yellow); Urobilinogen Urine Neg (Negative); WBC Urine 0-4 /hpf (0-5); pH Urine 5 (5-7)
[2023-06-19 21:13] VITALS: BP 186/72; PULSE 69; RESP 16; O2SAT 95
[2023-06-19 21:24] LABS: Alanine Aminotransferase 8 U/L (0-33); Albumin Level 2.8 g/dL (3.5-5.2); Alkaline Phosphatase 87 U/L (35-105); Anion Gap 13.9 (5-19); Aspartate Amino Transferase 15 U/L (0-32); Blood Urea Nitrogen 22 mg/dL (8-23); Calcium 7.8 mg/dL (8.5-10.5); Carbon Dioxide 20 mmol/L (22-29); Chloride 100 mmol/L (98-107); Creatinine Clr Calc Pharmacy 28.2999; Globulin 3.5 g/dL (1.3-4.6); Glucose 113 mg/dL (65-115); Lipase 38 U/L (13-60); Osmolality Calculated 274 mOsm/kg (285-295); Potassium 3.9 mmol/L (3.5-5.1); Sodium 130 mmol/L (136-145); Total Bilirubin 0.2 mg/dL (0.15-1.2); Total Protein 6.3 g/dL (6.6-8.7)
[2023-06-19 21:37] VITALS: BP 172/110; PULSE 72; RESP 16; O2SAT 94
[2023-06-19] MEDS: HYDROcodone-acetaminophen 5-325 mg Tablet 1 TAB PO (21:51)
[2023-06-19 22:04] VITALS: BP 172/110; PULSE 72; RESP 16; TEMP 36.4; O2SAT 94
--- NOTE | 2023-06-20 12:12 | DCPLANNER ---
A message was sent to general surgery on 06/20/23 at 1212. [facility] to contact patient for appt
== END 2023-06-19 22:05 | disposition home or self-care (01) ==
PROVIDERS: Emergency Provider Emergency Medicine; PCP Internal Medicine
DX: R10.84 Generalized abdominal pain (principal); Z79.02 Long term (current) use of antithrombotics/antiplatelets; Z79.82 Long term (current) use of aspirin; Z72.0 Tobacco use; J44.9 Chronic obstructive pulmonary disease, unspecified; E78.5 Hyperlipidemia, unspecified; E11.22 Type 2 diabetes mellitus with diabetic chronic kidney disease; I12.9 Hypertensive chronic kidney disease with stage 1 through stage 4 chronic kidney disease, or unspecified chronic kidney disease; N18.9 Chronic kidney disease, unspecified
CPT/HCPCS: 36415; 80053; 81001; 83690; 85025; 96360; 96361; 99284; J7030

== ENCOUNTER → 2023-08-05 10:02 | Outpatient (BNVA) | payer MEDICARE, MEDICAID, SELFPAY | PROVIDERS: PCP Internal Medicine; Visit Provider Internal Medicine Cardiovascular Disease | DX: I48.92 Unspecified atrial flutter (principal); Z98.890 Other specified postprocedural states; I10 Essential (primary) hypertension; R55 Syncope and collapse; E78.5 Hyperlipidemia, unspecified; F17.200 Nicotine dependence, unspecified, uncomplicated | CPT/HCPCS: 99214 ==

== ENCOUNTER 2023-09-25 12:35 | Oncology outpatient (recurring) (ONCR) | payer MEDICARE, MEDICAID, SELFPAY ==
[2023-09-25 16:07] LABS: Basophils % 0.8 %; Eosinophils # 0.1 10^3/uL (0.0-0.8); Eosinophils % 1.9 %; Lymphocytes # 0.3 10^3/uL (0.8-4.8); Mean Corpuscular Hemoglobin 27.9 pg (27-33); Mean Corpuscular Volume 87.3 fl (85-98); Mean Platelet Volume 11.2 fL (7.4-10.4); Monocytes # 0.3 10^3/uL (0.2-0.9); Monocytes % 6.9 %; Neutrophils # 3.06 10^3/uL (1.8-7.7); Neutrophils % 80.9 %; Nucleated Red Blood Cells % 0 %; Platelet Count 151 10^3/cmm (157-399); Red Blood Count 4.01 10^6/uL (3.85-5.65); Red Cell Distribution Width 14.8 % (12.1-15.1); White Blood Count 3.78 10^3/uL (3.29-11.43)
[2023-09-25 16:25] LABS: Erythrocyte Sedimentation Rate 32 mm/hr (0-15)
[2023-09-25 16:28] LABS: C Reactive Protein 5.1 mg/L (0.0-4.9); Lactate Dehydrogenase 189 U/L (135-214)
[2023-09-25 16:29] LABS: Reticulocyte % 0.7 % (0.5-2.0)
[2023-09-25 16:34] LABS: Free T4 Free Thyroxine 1.25 ng/dL (0.82-1.77)
[2023-09-25 17:03] LABS: Ferritin 84 ng/mL (15-150); Iron 43 ug/dL (37-145); Percent Saturation 14.2 % (20-50); Total Iron Binding Capacity 301 mcg/dl; Unsaturated Iron Binding 258 ug/dL (112-347)
[2023-09-25 17:12] LABS: LAB Peripheral Smear Sent for Review
[2023-09-25 17:15] LABS: Hepatitis A Antibody IgM Non-Reactive (Nonreactive); Hepatitis B Core AB, Total Non-Reactive (Nonreactive); Hepatitis B Surface AB < 3.5 (11.5-1000); Hepatitis B Surface Antigen Non-Reactive (Nonreactive); Hepatitis C Virus Antibody Non-Reactive (Nonreactive)
[2023-09-25 17:17] LABS: Folate Level 7.3 ng/mL (4.8-37.3)
[2023-09-25 17:18] LABS: Vitamin B12 1564 pg/mL (232-1245)
[2023-09-27 09:14] LABS: PROTEIN, TOTAL 7.6 g/dL (6.1-8.1)
[2023-09-28 15:10] LABS: Zinc Level, Serum or Plasma 49 mcg/dL (60-130)
[2023-09-29 10:30] LABS: Copper Level 105 mcg/dL (70-175)
[2023-09-29 12:20] LABS: Leukemia Profile (BBPL) See Report
[2023-09-29 15:24] LABS: KAPPA LIGHT CHAIN, FREE, SERUM 222.7 mg/L (3.3-19.4); KAPPA/LAMBDA LIGHT CHAINS FREE 2.03 (0.26-1.65); LAMBDA LIGHT CHAIN, FREE, SERU 109.7 mg/L (5.7-26.3)
[2023-09-30 15:24] LABS: ALBUMIN 3.8 g/dL (3.8-4.8); ALPHA 1 GLOBULIN 0.4 g/dL (0.2-0.3); BETA 1 GLOBULIN 0.4 g/dL (0.4-0.6); BETA 2 GLOBULIN 0.5 g/dL (0.2-0.5); GAMMA GLOBULIN 1.6 g/dL (0.8-1.7)
[2023-10-01 09:04] LABS: Methylmalonic Acid 180 nmol/L (87-318)
[2023-10-01 19:00] LABS: Immunofixation Serum Normal pattern.
[2023-10-03 13:14] LABS: Soluble Transferrin Receptor 1.59 mg/L (0.76-1.76)
== END 2023-10-19 23:59 | disposition home or self-care (01) ==
PROVIDERS: PCP Internal Medicine; Visit Provider Internal Medicine
DX: D75.89 Other specified diseases of blood and blood-forming organs (principal); Z86.39 Personal history of other endocrine, nutritional and metabolic disease
CPT/HCPCS: 36415; 80503; 82525; 82607; 82728; 82746; 83540; 83550; 83615; 83883; 83921; 84155; 84165; 84238; 84439; 84630; 85025; 85045; 85651; 86140; 86334; 86335; 86705; 86706; 86709; 86803; 86850; 86880; 86900; 87340; 88184; 88185; 99203

== ENCOUNTER 2024-02-04 09:01 | Oncology outpatient (recurring) (ONCR) | payer MEDICARE, MEDICAID, SELFPAY ==
[2024-02-04 09:32] LABS: Basophils % 0.5 %; Eosinophils # 0.1 10^3/uL (0.0-0.8); Eosinophils % 2.6 %; Hematocrit 32.5 % (36-47); Lymphocytes # 0.4 10^3/uL (0.8-4.8); Lymphocytes % 9.1 %; Mean Corpuscular HGB Conc 31.4 g/dL (30-55); Mean Corpuscular Volume 89.3 fl (85-98); Monocytes # 0.3 10^3/uL (0.2-0.9); Neutrophils # 3.43 10^3/uL (1.8-7.7); Neutrophils % 80.1 %; Nucleated Red Blood Cells % 0 %; Platelet Count 251 10^3/cmm (157-399); Red Blood Count 3.64 10^6/uL (3.85-5.65); Red Cell Distribution Width 14.6 % (12.1-15.1); White Blood Count 4.28 10^3/uL (3.29-11.43)
[2024-02-04 09:58] LABS: Alanine Aminotransferase 17 U/L (0-33); Albumin Level 3.7 g/dL (3.5-5.2); Alkaline Phosphatase 87 U/L (35-105); Aspartate Amino Transferase 21 U/L (0-32); Blood Urea Nitrogen 34 mg/dL (8-23); Calcium 8.4 mg/dL (8.5-10.5); Carbon Dioxide 19 mmol/L (22-29); Chloride 104 mmol/L (98-107); Globulin 3.3 g/dL (1.3-4.6); Glucose 126 mg/dL (65-115); Osmolality Calculated 291 mOsm/kg (285-295); Sodium 136 mmol/L (136-145); Total Bilirubin 0.3 mg/dL (0.15-1.2)
[2024-02-04 10:07] LABS: Creatinine Clr Calc Pharmacy 15.9644
[2024-02-05 13:13] LABS: PROTEIN, TOTAL 6.7 g/dL (6.1-8.1)
[2024-02-06 14:24] LABS: ALBUMIN 3.3 g/dL (3.8-4.8); ALPHA 1 GLOBULIN 0.4 g/dL (0.2-0.3); ALPHA 2 GLOBULIN 0.9 g/dL (0.5-0.9); BETA 1 GLOBULIN 0.4 g/dL (0.4-0.6); BETA 2 GLOBULIN 0.4 g/dL (0.2-0.5); GAMMA GLOBULIN 1.4 g/dL (0.8-1.7)
[2024-02-06 17:35] LABS: Zinc Level, Serum or Plasma 56 mcg/dL (60-130)
[2024-02-08 20:54] LABS: Immunofixation Serum Normal pattern.
[2024-02-09 11:10] LABS: KAPPA/LAMBDA LIGHT CHAINS FREE 1.58 (0.26-1.65); LAMBDA LIGHT CHAIN, FREE, SERU 109.2 mg/L (5.7-26.3)
== END 2024-02-19 23:59 | disposition home or self-care (01) ==
PROVIDERS: Nurse Practitioner Family; PCP Internal Medicine; Visit Provider Internal Medicine
DX: Z53.9 Procedure and treatment not carried out, unspecified reason; D75.89 Other specified diseases of blood and blood-forming organs; K76.9 Liver disease, unspecified; R10.84 Generalized abdominal pain; Z86.39 Personal history of other endocrine, nutritional and metabolic disease
CPT/HCPCS: 36415; 80053; 83883; 84155; 84165; 84630; 85025; 86334; 99213; 99214

== ENCOUNTER 2024-02-04 11:06 | Emergency (ER) | payer MEDICARE, MEDICAID, SELFPAY ==
[2024-02-04 11:49] VITALS: BP 130/63; PULSE 62; RESP 16; TEMP 36.9; O2SAT 96; BMI 17.9
[2024-02-04 12:51] LABS: Lipase 28 U/L (13-60)
--- NOTE | 2024-02-04 13:12 | CT_ITS ---
WS: [id number] CT ABDOMEN AND PELVIS NONCONTRAST HISTORY: abdominal pain/diarrhea TECHNIQUE: Imaging performed through the abdomen and pelvis. Coronal and sagittal reformats are submi tted. All CT scans at [facility] use at least one of these dose optimization techniques: auto mated exposure control; mA and/or kV adjustment per patient size (includes targeted exams where dose is matched to clinical indication); or iterative reconstruction. DLP: 361.21 mGy.cm COMPARISON: 06/12/2023 Lower thorax: Emphysematous changes at the lung bases. Heart size is normal. Large hiatal hernia. Por tions of the hiatal hernia demonstrate mild wall thickening. There is some air within the herniated s tomach above the diaphragm. Similar configuration as the prior study. Liver: Normal size liver. Reidentified low-attenuation mass in the RIGHT lobe consistent with a cyst. No bile duct dilatation. Gallbladder: Mildly contracted gallbladder with stones. No adjacent inflammation. Pancreas: No interval change. Spleen: Normal. Adrenal glands: Normal. No mass. Right kidney: Mild atrophy. Nonobstructing calcification upper pole. Scattered cortical nodules. Some of these nodules are of increased density and some low density. Left kidney: Cortical atrophy. Exophytic cyst from the lateral kidney measures 3.4 x 3.8 cm. Addition al areas of cortical thinning and scarring and calcifications. Aorta: Moderate to severe atherosclerosis abdominal aorta. No aneurysm. Atherosclerosis continues int o the common iliac arteries. Very dense calcified plaque extending into the iliac arteries. No free fluid, intraperitoneal air or significant lymphadenopathy. GI tract: Previously described gastric wall thickening is not identified on this unenhanced exam. No small bowel obstruction. There are a few small bowel loops in the central abdomen which are mildly di lated with fluid but at this time there is no obstruction. Abdominal wall: Negative. No hernia. Pelvis: Well-distended urinary bladder. No free fluid or adenopathy. Atrophic uterus as expected. Osseous structures: Mild increase in the lumbar lordosis. CT/CT abdomen pelvis wo con [id number] IMPRESSION: 1. Large hiatal hernia. Mild gastric wall thickening but similar to the prior study. 2. Mild fluid distention of central small bowel loops but not obstructed at th is time. This may be a sentinel loop or early small bowel obstruction. 3. No ascites or edema. 4. Extensive atherosclerosis aorta and iliac arteries. 5. Cholelithiasis without acute cholecystitis.
--- NOTE | 2024-02-04 13:13 | ED_ITS ---
HPI - Abdominal Pain 2 General: Chief Complaint: Abdominal Pain Stated Complaint: abd pain Time Seen by Provider: 02/04/24 13:05 Source: patient and family Mode of arrival: ambulatory Limitations: no limitations History of Present Illness: Patient is an 78-year-old female who presents to the emergency department with complaints of abdominal pain today, was referred by [facility]. [facility], primary historian is family in the room, who states that patient normally has confusion and she is currently at baseline mentation. Patient is telling me that her pain is epigastric primarily, it began this morning all of a sudden. She has had associated nausea and diarrhea. Family states that she has had this before and was seen at [facility] emergency department back in May, where she was worked up and found to have a hernia, however was also referred to [facility]-onc at that time due to some abnormal blood. She was also scheduled for colonoscopy but this never came to fruition. Patient is stating the pain is pretty bad at this time, it does not radiate anywhere. She is denying any chest pain, shortness of breath, fevers, chills, urinary symptoms, or vomiting. MD elicited complaint: abdominal pain Onset (ago): hour(s) Pain Consistency: constant Location: Epigastric Severity: severe Radiation: none Exacerbating factors: nothing Relieving factors: nothing Associated Symptoms: Reports change in stool character, diarrhea and nausea; Denies bloating, chills, constipation, dysuria, fever(s), hematochezia and vomiting Related Data Home Medications Medication Instructions Recorded Confirmed aspirin 81 mg tablet,delayed 81 mg PO M 05/06/20 02/04/24 release clopidogrel 75 mg tablet 75 mg PO QAM 05/06/20 02/04/24 lovastatin 40 mg tablet 40 mg PO QAM 05/06/20 02/04/24 albuterol sulfate 2.5 mg/3 mL 2.5 mg inhalation Q4H PRN copd 04/18/22 02/04/24 (0.083 %) solution for nebulization bisacodyl 10 mg rectal suppository 10 mg NE DAILY PRN Constipation 04/18/22 02/04/24 levothyroxine 88 mcg tablet 88 mcg PO QAM 04/18/22 02/04/24 magnesium hydroxide 400 mg/5 mL 30 ml PO DAILY PRN Constipation 04/18/22 02/04/24 oral suspension (Milk of Magnesia) polyethylene glycol 3350 17 17 g PO DAILY PRN Constipation 04/18/22 02/04/24 gram/dose oral powder sennosides 8.6 mg tablet (senna) 8.6 mg PO DAILY PRN Constipation 04/18/22 02/04/24 hydroxyzine HCl 10 mg tablet See Rx Instructions .Route .COMPLEX 08/16/22 02/04/24 amlodipine 2.5 mg tablet 2.5 mg PO BID 05/07/23 02/04/24 ferrous sulfate 325 mg (65 mg 325 mg PO QAM 05/07/23 02/04/24 iron) tablet losartan 50 mg tablet 50 mg PO BID 05/07/23 02/04/24 aluminum-mag hydroxide-simethicone 30 ml PO Q4H PRN Indigestion 06/12/23 02/04/24 200 mg-200 mg-20 mg/5 mL oral susp carboxymethylcellulose sodium 1 % 2 drp ophthalmic (eye) BID 06/12/23 02/04/24 eye drops (Artificial Tears (carboxymethylcellulose)) cyanocobalamin (vitamin B-12) 500 500 mcg PO QAM 06/12/23 02/04/24 mcg tablet escitalopram oxalate 10 mg tablet 10 mg PO QAM 06/12/23 02/04/24 (Lexapro) melatonin 10 mg tablet 10 mg PO BEDTIME 06/12/23 02/04/24 naloxone 2 mg/2 mL syringe kit 2 mg IM Q3M PRN Opioid Overdose 06/12/23 02/04/24 buspirone 10 mg tablet 10 mg PO BID 09/25/23 02/04/24 pantoprazole 40 mg tablet,delayed 40 mg PO QAM 09/25/23 02/04/24 release acetaminophen 325 mg tablet 650 mg PO Q6H PRN Pain or temp 02/04/24 02/04/24 Previous Rx's Medication Instructions Recorded hydralazine 100 mg tablet 100 mg PO TID #270 tabs 08/06/23 Allergies Allergy/AdvReac Type Severity Reaction Status Date / Time Penicillins Allergy ALGY-Hives Verified 02/04/24 09:23 tetracycline Allergy ALGY-Hives Verified 02/04/24 09:23 Review of Systems 2 General: Reports: 10 or more systems reviewed and unremarkable except in HPI and below Const: Denies: fever(s), chills, change in appetite, change in weight or diaphoresis ENMT: Denies: throat pain or hoarseness Card: Denies: chest pain, palpitations or lightheadedness Resp: Denies: dyspnea, productive cough or wheezing GI: Reports: abdominal pain, nausea, diarrhea and change in stool character; Denies: vomiting, constipation, bloating or hematochezia : Denies: flank pain, difficulty voiding, dysuria, urinary frequency or urinary urgency Musc: Denies: neck pain or back pain Skin/Breast: Denies: rash or new lesions Neuro: Denies: headache(s) or dizziness PFSH ED 2 PFSH: Medical History Bicytopenia Peripheral arterial disease with history of revascularization Bradycardia Chronic hyponatremia Exertional dyspnea COPD exacerbation Orthostatic hypotension Syncope COPD (chronic obstructive pulmonary disease) Hx of type 2 diabetes mellitus Peripheral vascular disease Hx of chest pain History of hypertension Frequent falls Hx of hyperlipidemia Chronic back pain Postmenopausal Impaired physical mobility Hx of renal calculi Smoker Chronic kidney disease (CKD) Surgical History Hx of tubal ligation Family History Grandmother Clotting disorder Brother Cancer Diabetes Stroke Son Chronic kidney disease (CKD) Mother Diabetes Father Stroke Denies family history of CAD (coronary artery disease) Dementia Suicide Anesthesia complication Bleeding disorder Lung disease Social History Smoking and tobacco/nicotine status: current some day tobacco/nicotine user Alcohol intake: never Substance/Drug Use: never Physical Exam 2 Const: COMMON NORMALS: no acute distress, average body habitus, no limitations, healthy appearing, alert and well nourished GENERAL APPEARANCE: cooperative and comfortable ORIENTATION/CONSCIOUSNESS: Yes awake HENMT: COMMON NORMALS: normocephalic, atraumatic, hearing grossly normal bilaterally, external ears normal, Normal external nose present, Normal nasal mucous membranes and turbinates present and moist oral mucous membranes HEAD & SCALP: normocephalic and atraumatic NOSE: Normal external nose present and Normal nasal mucous membranes and turbinates present EXTERNAL EAR: Yes external ears normal Eye: COMMON NORMALS: Equal, round and reactive pupils present, EOMs intact bilaterally, conjunctivae normal and normal visual [place] by confrontation C ONJUNCTIVA: Yes conjunctivae normal PUPIL: Yes Equal, round and reactive pupils present Neck/C-Spine: COMMON NORMALS: full ROM, supple, no meningeal signs and no JVD Resp: COMMON NORMALS: normal respiratory effort, No retractions, No use of accessory muscles and clear to auscultation bilaterally AUSCULTATION: clear to auscultation bilaterally, no crackles, no rales, no rhonchi and no wheezes Cardio: COMMON NORMALS: no JVD, regular rate, regular rhythm, S1 normal heart sound present, S2 normal heart sound present, No gallops present (Cardio), No clicks present (Cardio), No murmurs present (Cardio), No rub (Cardio) and Peripheral pulses 2+ throughout RATE: regular rate RHYTHM: regular rhythm HEART SOUNDS: S1 normal heart sound present and S2 normal heart sound present PERIPHERAL PULSES: Peripheral pulses 2+ throughout GI: COMMON NORMALS: Normal to inspection, nondistended, normoactive bowel sounds present, Soft to palpation, No hepatosplenomegaly present and no masses AUSCULTATION: Yes normoactive bowel sounds PALPATION: Yes Soft to palpation, Yes Tenderness to palpation present (GI) (Mild reproducible epigastric tenderness to palpation), No Guarding due to palpation present (GI), No Rigid due to palpation and Yes No hepatosplenomegaly present RECTAL EXAM: deferred Extremity: COMMON NORMALS: normal to inspection and full ROM Neuro: COMMON NORMALS: moves all extremities, no focal motor deficits and no sensory deficits noted SENSORIUM/ORIENTATION: Yes alert MENINGEAL SIGNS: Y es no meningeal signs Psych: COMMON NORMALS: mental status grossly normal, cooperative and speech normal SPEECH: Yes normal speech Skin: COMMON NORMALS: no rashes or lesions noted GENERAL SKIN EXAM: no rashes or lesions noted Course 2 Vital Signs: Vital signs: Vital Signs Temperature 98.4 F 02/04/24 11:49 Pulse Rate 62 02/04/24 11:49 Respiratory Rate 16 02/04/24 11:49 Blood Pressure 130/63 02/04/24 11:49 Pulse Oximetry 96 02/04/24 11:49 Oxygen Delivery Me thod Room Air 02/04/24 11:49 MDM - Abdominal Pain Medical Decision Making Patient was referred over to the ED from [facility] for evaluation of acute onset epigastric abdominal pain, of which patient states she has in the past and was diagnosed with a hiatal hernia. Her vitals were stable, lab work all stable from prior, patient did note that she was having bowel movement still and was able to pass gas. Her physical examination overall unremarkable aside from some mild reproducible tenderness to palpation of the epigastrium, she had normal bowel sounds that were not high-pitched or absent. She was unable to provide us a urine here today, was instructed to follow-up with primary care if she develops any urinary symptoms. Her CT of her abdomen and pelvis was done without contrast due to her chronically high creatinine, it did show evidence of a large hiatal hernia that is likely causing the patient's pain. No suspicion for an acute obstructed bowel at this time due to her ability to pass stool and gas, however we will refer her to general surgeon for further evaluation. Discussed this with family who agrees with the plan at this time, patient [facility]. Discussed this patient's case with Dr. Fela abdi in the emergency department. Lab Data 02/04/24 13:39 02/04/24 13:39 Labs/Radiology: Radiology Impressions Abdomen/Pelvis CT 02/04/24 13:12 IMPRESSION: 1. Large hiatal hernia. Mild gastric wall thickening but similar to the prior study. 2. Mild fluid distention of central small bowel loops but not obstructed at this time. This may be a sentinel loop or early small bowel obstruction. 3. No ascites or edema. 4. Extensive atherosclerosis aorta and iliac arteries. 5. Cholelithiasis without acute cholecystitis. Laboratory Results WBC 3.24 10^3/uL (3.29-11.43) L 02/04/24 13:39 RBC 3.44 10^6/uL (3.85-5.65) L 02/04/24 13:39 Hgb 9.80 g/dL (11.27-16.99) L 02/04/24 13:39 Hct 30.8 % (36-47) L 02/04/24 13:39 MCV 89.5 fl (85-98) 02/04/24 13:39 MCH 28.5 pg (27-33) 02/04/24 13:39 MCHC 31.8 g/dL (30-55) 02/04/24 13:39 RDW 14.6 % (12.1-15.1) 02/04/24 13:39 Plt Count 236 10^3/cmm (157-399) 02/04/24 13:39 MPV 11.2 fL (7.4-10.4) H 02/04/24 13:39 Neut % (Auto) 83.0 % 02/04/24 13:39 Lymph % (Auto) 9.3 % 02/04/24 13:39 Sibley % (Auto) 6.5 % 02/04/24 13:39 Eos % (Auto) 0.3 % 02/04/24 13:39 Baso % (Auto) 0.3 % 02/04/24 13:39 Neut # (Auto) 2.69 10^3/uL (1.8-7.7) 02/04/24 13:39 Lymph # (Auto) 0.3 10^3/uL (0.8-4.8) L 02/04/24 13:39 Sibley # (Auto) 0.2 10^3/uL (0.2-0.9) 02/04/24 13:39 Eos # (Auto) 0.0 10^3/uL (0.0-0.8) 02/04/24 13:39 Baso # (Auto) 0.0 10^3/uL (0.0-0.1) 02/04/24 13:39 Nucleated RBC % (auto) 0 % 02/04/24 13:39 Nucleated RBCs # 0.0 /100WBC 02/04/24 13:39 Sodium 138 mmol/L (136-145) 02/04/24 13:39 Potassium 4.5 mmol/L (3.5-5.1) 02/04/24 13:39 Chloride 106 mmol/L (98-107) 02/04/24 13:39 Carbon Dioxide 19 mmol/L (22-29) L 02/04/24 13:39 Anion Gap 17.5 (5-19) 02/04/24 13:39 BUN 35 mg/dL (8-23) H 02/04/24 13:39 Creatinine 2.1 mg/dL (0.5-0.9) H 02/04/24 13:39 GFR Calculation Not Reportable 02/04/24 13:39 Glucose 115 mg/dL (65-115) 02/04/24 13:39 Calculated Osmolality 295 mOsm/kg (285-295) 02/04/24 13:39 Calcium 8.1 mg/dL (8.5-10.5) L 02/04/24 13:39 Total Bilirubin 0.3 mg/dL (0.15-1.2) 02/04/24 13:39 AST 25 U/L (0-32) 02/04/24 13:39 ALT 17 U/L (0-33) 02/04/24 13:39 Alkaline Phosphatase 88 U/L (35-105) 02/04/24 13:39 Total Protein 6.7 g/dL (6.6-8.7) 02/04/24 13:39 Albumin 3.6 g/dL (3.5-5.2) 02/04/24 13:39 Globulin 3.1 g/dL (1.3-4.6) 02/04/24 13:39 Lipase 28 U/L (13-60) 02/04/24 09:10 All radiology interpretation(s) finalized by discharge Discharge Plan Discharge Patient Disposition: Home Clinical Impression: Large hiatal hernia Condition: Stable Prescriptions: No Action hydroxyzine HCl 10 mg tablet See Rx Instructions .ROUTE .COMPLEX Rx Instructions: Give 1 tablet by mouth every other day for itching and may give 1 tablet daily as needed for anxiety prior to shower. buspirone 10 mg tablet 10 mg PO BID pantoprazole 40 mg tablet,delayed release (DR/EC) 40 mg PO QAM amlodipine 2.5 mg tablet 2.5 mg PO BID ferrous sulfate 325 mg (65 mg iron) tablet 325 mg PO QAM losartan 50 mg tablet 50 mg PO BID hydralazine 100 mg tablet 100 mg PO TID Qty: 270 3RF lovastatin 40 mg tablet 40 mg PO QAM clopidogrel 75 mg tablet 75 mg PO QAM aspirin 81 mg Tablet,Delayed Release (Dr/Ec) 81 mg PO QAM sennosides [senna] 8.6 mg Tablet 8.6 mg PO DAILY PRN (Reason: Constipation) albuterol sulfate 2.5 mg /3 mL (0.083 %) solution for nebulization 2.5 mg inhalation Q4H PRN (Reason: copd) levothyroxine 88 mcg tablet 88 mcg PO QAM magnesium hydroxide [Milk of Magnesia] 400 mg/5 mL Suspension 30 ml PO DAILY PRN (Reason: Constipation) bisacodyl 10 mg Suppository 10 mg NE DAILY PRN (Reason: Constipation) polyethylene glycol 3350 17 gram/dose Powder 17 g PO DAILY PRN (Reason: Constipation) cyanocobalamin (vitamin B-12) 500 mcg Tablet 500 mcg PO QAM alum-mag hydroxide-simeth [Mylanta] 200-200-20 mg/5 mL Suspension 30 ml PO Q4H PRN (Reason: Indigestion) Rx Instructions: administer between meals and at bedtime escitalopram oxalate [Lexapro] 10 mg Tablet 10 mg PO QAM melatonin 10 mg Tablet 10 mg PO BEDTIME Artificial Tears (cmc) 1 % Drops 2 drp OPHTHALMIC (EYE) BID naloxone 2 mg/2 mL Syringe Kit 2 mg IM Q3M PRN (Reason: Opioid Overdose) Rx Instructions: NTExceed 10 mg total dose/episode acetaminophen 325 mg Tablet 650 mg PO Q6H PRN (Reason: Pain or temp) Discharge Orders: Discharge ED (Routine); Ordered 02/04/24 Ordered By: Oracio No Referrals: Jaret Estrella MD [Primary Care Provider] - Patient Instructions: Hiatal Hernia (ED) Activity Restrictions/Additional Instructions: Follow-up with general surgeon as discussed. If you develop the inability to pass stool or gas, please return to the emergency department immediately for reevaluation. Continue home medications. Drink plenty of fluids. Call your primary care provider if you develop any urinary symptoms. Coding Level of Care Code ED [employer]
--- NOTE | 2024-02-04 13:13 | PC.PHAR ---
Pt is a resident at [facility]
[2024-02-04 13:54] LABS: Basophils % 0.3 %; Eosinophils % 0.3 %; Hematocrit 30.8 % (36-47); Lymphocytes # 0.3 10^3/uL (0.8-4.8); Lymphocytes % 9.3 %; Mean Corpuscular HGB Conc 31.8 g/dL (30-55); Mean Corpuscular Hemoglobin 28.5 pg (27-33); Mean Corpuscular Volume 89.5 fl (85-98); Mean Platelet Volume 11.2 fL (7.4-10.4); Monocytes # 0.2 10^3/uL (0.2-0.9); Monocytes % 6.5 %; Neutrophils # 2.69 10^3/uL (1.8-7.7); Nucleated Red Blood Cells % 0 %; Platelet Count 236 10^3/cmm (157-399); Red Blood Count 3.44 10^6/uL (3.85-5.65); Red Cell Distribution Width 14.6 % (12.1-15.1); White Blood Count 3.24 10^3/uL (3.29-11.43)
[2024-02-04 14:15] LABS: Alanine Aminotransferase 17 U/L (0-33); Albumin Level 3.6 g/dL (3.5-5.2); Alkaline Phosphatase 88 U/L (35-105); Anion Gap 17.5 (5-19); Aspartate Amino Transferase 25 U/L (0-32); Blood Urea Nitrogen 35 mg/dL (8-23); Calcium 8.1 mg/dL (8.5-10.5); Carbon Dioxide 19 mmol/L (22-29); Chloride 106 mmol/L (98-107); Creatinine Clr Calc Pharmacy 16.7859; Globulin 3.1 g/dL (1.3-4.6); Glucose 115 mg/dL (65-115); Osmolality Calculated 295 mOsm/kg (285-295); Potassium 4.5 mmol/L (3.5-5.1); Sodium 138 mmol/L (136-145); Total Bilirubin 0.3 mg/dL (0.15-1.2); Total Protein 6.7 g/dL (6.6-8.7)
[2024-02-04 14:51] VITALS: BP 128/64; PULSE 59; O2SAT 97
--- NOTE | 2024-02-05 07:46 | DCPLANNER ---
messaged gen surg for er f/u
== END 2024-02-04 14:52 | disposition home or self-care (01) ==
PROVIDERS: Emergency Medicine; Emergency Provider Physician Assistant; PCP Internal Medicine
DX: K44.9 Diaphragmatic hernia without obstruction or gangrene (principal); E11.22 Type 2 diabetes mellitus with diabetic chronic kidney disease; I12.9 Hypertensive chronic kidney disease with stage 1 through stage 4 chronic kidney disease, or unspecified chronic kidney disease; N18.9 Chronic kidney disease, unspecified; Z72.0 Tobacco use; Z79.02 Long term (current) use of antithrombotics/antiplatelets; Z79.82 Long term (current) use of aspirin; J44.9 Chronic obstructive pulmonary disease, unspecified; E78.5 Hyperlipidemia, unspecified
CPT/HCPCS: 36415; 74176; 80053; 83690; 85025; 99284

== ENCOUNTER → 2024-02-10 10:53 | Outpatient (BNVA) | payer MEDICARE, MEDICAID, SELFPAY | PROVIDERS: PCP Internal Medicine; Referring Provider Physician Assistant; Visit Provider Student in an Organized Health Care Education/Training Program | DX: K44.9 Diaphragmatic hernia without obstruction or gangrene (principal) | CPT/HCPCS: 99204 ==

== ENCOUNTER → 2024-02-20 08:14 | Outpatient (BNVA) | payer MEDICARE, MEDICAID, SELFPAY | PROVIDERS: PCP Internal Medicine; Visit Provider Nurse Practitioner Family | DX: D48.5 Neoplasm of uncertain behavior of skin (principal); L81.4 Other melanin hyperpigmentation; L57.8 Other skin changes due to chronic exposure to nonionizing radiation; D22.62 Melanocytic nevi of left upper limb, including shoulder | CPT/HCPCS: 11102; 99203 ==

== ENCOUNTER 2024-03-01 05:59 | Day surgery (SDC) | payer MEDICARE, MEDICAID, SELFPAY ==
[2024-03-01 06:20] VITALS: BP 174/78; PULSE 70; RESP 18; TEMP 36.7; O2SAT 100; BMI 18.4
[2024-03-01] MEDS: sodium chloride 0.9% 1,000 ML 30 ML IV (06:27)
--- NOTE | 2024-03-01 07:04 | W.PM.OPSUD ---
Surgery/Procedure H&P Update DATE OF PROCEDURE: March 01, 2024 DATE H&P PERFORMED: 02/10/24 H&P UPDATE INFORMATION: I have reviewed H&P completed within last 30 days, I have examined patient prior to procedure and No changes to prior documentation PLANNED PROCEDURE: Operation Date: 03/01/24 07:00 Proposed Procedures p EGD 77597, K44.9(Not Applicable) - Krystian Longo MD
--- NOTE | 2024-03-01 07:07 | ANES.PREANE2 ---
Pre-Anesthetic Assessment Height/Weight: Height 1.6 m Weight 47.174 kg Temp Pulse Resp BP Pulse Ox O2 Del Method 98.1 F 70 18 174/78 100 Room Air 03/01/24 06:20 03/01/24 06:20 03/01/24 06:20 03/01/24 06:20 03/01/24 06:20 03/01/24 06:20 Operation Date: 03/01/24 07:00 Proposed Procedures p EGD 70590, K44.9(Not Applicable) - Krystian Longo MD Familial anesthetic complications: none Was Beta Patricio taken within 24 hours: N/A (took other BP meds this AM) Was Clonidine taken within 24 hours: N/A Last intake: Intake Last Liquid Date 02/29/24 Last Liquid Time 20:00 Last Solid Date 02/29/24 Last Solid Time 17:00 Social Tobacco (hasnt smoked in 2 weeks.) and No alcohol Exam alert and oriented x 3 Airway Submandibular: within normal limits Cervical ROM: within normal limits Mallampati: Class II Dentition: false History/ROS No significant history except as noted Pulmonary Chronic Obstructive Pulmonary Disease and Shortness of Breath CV/HEM Anemia and Hypertension Chronic Renal Insufficiency Hepatic None reported GI Gastroesophageal Reflux Disease and Hiatal Hernia Metabolic None reported Musc/skel None reported Neuropsych None reported Anesthetic Plan ASA status: 3 Anesthesia: Anesthesia Evaluation, General and MAC Medications/Allergies Home Medications Medication Instructions Recorded Confirmed Last Taken Type aspirin 81 mg tablet,delayed 81 mg PO QAM 05/06/20 02/25/24 02/29/24 History release clopidogrel 75 mg tablet 75 mg PO QAM 05/06/20 02/25/24 02/25/24 History lovastatin 40 mg tablet 40 mg PO QAM 05/06/20 02/25/24 02/25/24 History albuterol sulfate 2.5 mg/3 mL 2.5 mg inhalation Q4H PRN copd 04/18/22 02/25/24 Unknown History (0.083 %) solution for nebulization bisacodyl 10 mg rectal suppository 10 mg PA DAILY PRN Constipation 04/18/22 02/25/24 Unknown History levothyroxine 88 mcg tablet 88 mcg PO QAM 04/18/22 02/25/24 02/29/24 History magnesium hydroxide 400 mg/5 mL 30 ml PO DAILY PRN Constipation 04/18/22 02/25/24 Unknown History oral suspension (Milk of Magnesia) polyethylene glycol 3350 17 17 g PO DAILY PRN Constipation 04/18/22 02/25/24 Unknown History gram/dose oral powder sennosides 8.6 mg tablet (senna) 8.6 mg PO DAILY PRN Constipation 04/18/22 02/25/24 Unknown History hydroxyzine HCl 10 mg tablet 10 mg PO DAILY PRN Anxiety 08/16/22 02/25/24 06/11/23 History amlodipine 2.5 mg tablet 2.5 mg PO BID 05/07/23 02/25/24 03/01/24 History ferrous sulfate 325 mg (65 mg 325 mg PO QAM 05/07/23 02/25/24 02/29/24 History iron) tablet losartan 50 mg tablet 50 mg PO BID 05/07/23 02/25/24 02/29/24 History aluminum-mag hydroxide-simethicone 30 ml PO Q4H PRN Indigestion 06/12/23 02/25/24 Unknown History 200 mg-200 mg-20 mg/5 mL oral susp carboxymethylcellulose sodium 1 % 2 drp ophthalmic (eye) BID 06/12/23 02/25/24 02/29/24 History eye drops (Artificial Tears (carboxymethylcellulose)) cyanocobalamin (vitamin B-12) 500 500 mcg PO QAM 06/12/23 02/25/24 02/29/24 History mcg tablet escitalopram oxalate 10 mg tablet 10 mg PO QAM 06/12/23 02/25/24 02/29/24 History (Lexapro) melatonin 10 mg tablet 10 mg PO BEDTIME 06/12/23 02/25/24 02/29/24 History naloxone 2 mg/2 mL syringe kit 2 mg IM Q3M PRN Opioid Overdose 06/12/23 02/25/24 Unknown History hydralazine 100 mg tablet 100 mg PO TID #270 tabs 08/06/23 02/25/24 02/29/24 Rx buspirone 10 mg tablet 10 mg PO BID 09/25/23 02/25/24 02/29/24 History acetaminophen 325 mg tablet 650 mg PO Q6H PRN Pain or temp 02/04/24 02/25/24 02/29/24 History pantoprazole 40 mg tablet,delayed 40 mg PO DAILY 02/25/24 02/25/24 02/29/24 History release Allergies Allergy/AdvReac Type Severity Reaction Status Date / Time Penicillins Allergy ALGY-Hives Verified 02/25/24 09:49 tetracycline Allergy ALGY-Hives Verified 02/25/24 09:49 Current Medications Generic Name Dose Route Start Last Admin Trade Name Freq PRN Reason Stop Dose Admin Sodium Chloride 1,000 mls @ 30 mls/hr 03/01/24 06:15 03/01/24 06:27 Sodium Chloride 0.9% IV 03/02/24 06:14 30 mls/hr .Q24H TABATHA Administration PFSH Anesthesia Medical History Bicytopenia Peripheral arterial disease with history of revascularization Bradycardia Chronic hyponatremia Exertional dyspnea COPD exacerbation Orthostatic hypotension Syncope COPD (chronic obstructive pulmonary disease) Hx of type 2 diabetes mellitus Peripheral vascular disease Hx of chest pain History of hypertension Frequent falls Hx of hyperlipidemia Chronic back pain Postmenopausal Impaired physical mobility Hx of renal calculi Smoker Chronic kidney disease (CKD) Surgical History Hx of tubal ligation Family History Grandmother Clotting disorder Brother Cancer Diabetes Stroke Son Chronic kidney disease (CKD) Mother Diabetes Father Stroke Denies family history of CAD (coronary artery disease) Dementia Suicide Anesthesia complication Bleeding disorder Lung disease Social History Smoking and tobacco/nicotine status: current some day tobacco/nicotine user Alcohol intake: never Substance/Drug Use: never Data Anesthesia Cardiac Studies: Echocardiogram 04/18/22 Echocardiogram Ultrasound 07/24/20 Sestamibi Stress Test (Cardiology) 04/18/20 Cardiac Event Monitor 05/22/23
[2024-03-01 07:17] VITALS: BP 163/62; PULSE 68; RESP 18; TEMP 36.2; O2SAT 100
--- NOTE | 2024-03-01 07:19 | ANE.PACU2 ---
Inpatient post-anesthesia follow up: Airway intact: Yes Vital signs: Temperature 97.1 F Pulse Rate 68 Respiratory Rate 18 Blood Pressure 163/62 Pulse Oximetry 100 Oxygen Delivery Me thod Room Air Oxygen Flow Rate Fraction of Inspir ed Oxygen Hydration adequate: Yes Nausea and vomiting: No Pain level: 1 Mental status: Baseline
[2024-03-01 07:22] VITALS: BP 150/72; PULSE 76; RESP 20; O2SAT 98
[2024-03-01 07:32] VITALS: BP 120/79; PULSE 68; RESP 20; O2SAT 98
== END 2024-03-01 08:05 | disposition home or self-care (01) ==
PROVIDERS: PCP Internal Medicine; Visit Provider Student in an Organized Health Care Education/Training Program
PROC: 0DJ08ZZ Inspection of Upper Intestinal Tract, Via Natural or Artificial Opening Endoscopic (ICD-10-PCS; CPT 43235; principal; 2024-03-01 07:00)
DX: K44.9 Diaphragmatic hernia without obstruction or gangrene (principal); K29.70 Gastritis, unspecified, without bleeding; F17.200 Nicotine dependence, unspecified, uncomplicated; Z79.82 Long term (current) use of aspirin; J44.9 Chronic obstructive pulmonary disease, unspecified; Z91.81 History of falling; E11.22 Type 2 diabetes mellitus with diabetic chronic kidney disease; I12.9 Hypertensive chronic kidney disease with stage 1 through stage 4 chronic kidney disease, or unspecified chronic kidney disease; N18.9 Chronic kidney disease, unspecified; K21.9 Gastro-esophageal reflux disease without esophagitis
CPT/HCPCS: 43239; 88305; J2704; J7030

== ENCOUNTER 2024-10-05 01:52 | Emergency (ER) | payer MEDICARE, MEDICAID, SELFPAY ==
[2024-10-05] VITALS (8 sets, daily range): BP systolic 141–182; BP diastolic 55–83; PULSE 79–89; RESP 16; TEMP 37.2–37.4; O2SAT 91–94
--- NOTE | 2024-10-05 01:56 | XRR_ITS ---
PROCEDURE INFORMATION: Exam: XR Chest Exam date and time: 10/05/2024 2:08 AM Age: 79 years old Clinical indication: Other: Weakness TECHNIQUE: Imaging protocol: Radiologic exam of the chest. Views: 1 view. COMPARISON: CR XR chest 1V portable [id number] 05/12/2022 11:42 AM FINDINGS: Lungs: Hazy infiltrate throughout the left lung, greatest at the lateral aspect of the left mid lung zone. Stable hyperinflation with diffuse interstitial coarsening. Pleural spaces: Unremarkable. No pleural effusion. No pneumothorax. Heart/Mediastinum: Heart upper normal in size when accounting for technique. Moderate retrocardiac hiatal hernia. Bones/joints: Unremarkable. XR/XR chest 1V portable [id number] IMPRESSION: 1. Multifocal left lung pneumonia favored over asymmetrical pulmonary edema. 2. Moderate retrocardiac hiatal hernia.
--- NOTE | 2024-10-05 01:57 | ECG_ITS ---
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 Measurements Intervals [place] Rate: 82 P: 17 ID: [id number] QRS: 49 QRSD: 76 T: -20 QT: 373 QTc: 437 Interpretive Statements SINUS RHYTHM LEFT VENTRICULAR HYPERTROPHY AND ST-T CHANGE [VOLTAGE CRITERIA PLUS ST/T ABNORMALITY] Compared to ECG 06/12/2023 16:17:00 ST (T wave) deviation now present T-wave abnormality no longer present Electronically Signed On 10-07-2024 06:20:16 CDT by Gris Hughes M.D. [email or web address] [id number]
--- NOTE | 2024-10-05 02:07 | W.ED.WEAKNES ---
HPI - Weakness General: Chief complaint: Weakness Stated complaint: WEAKNESS Time Seen by Provider: 10/05/24 01:53 History of Present Illness: 79-year-old female with a history of peripheral arterial disease, chronic hyponatremia, COPD, type 2 diabetes, hypertension and hyperlipidemia who presents the emergency room by ambulance from [facility] with weakness. Apparently she had a fall about a week ago. She did not hit her head. custodial stated that she has had worsening increased generalized weakness and low-grade fevers for the last few days. She had some nausea en route and received some Zofran. She has no pain complaints at this time. She is alert and oriented. No chest pain. No abdominal pain. Review of Systems Narrative: Constitutional symptoms: Negative except as documented in HPI. Skin symptoms: Negative except as documented in HPI. Eye symptoms: Negative except as documented in HPI. ENMT symptoms: Negative except as documented in HPI. Respiratory symptoms: Negative except as documented in HPI. Cardiovascular symptoms: Negative except as documented in HPI. Gastrointestinal symptoms: Negative except as documented in HPI. Genitourinary symptoms: Negative except as documented in HPI. Musculoskeletal symptoms: Negative except as documented in HPI. Neurologic symptoms: Negative except as documented in HPI. Psychiatric symptoms: Negative except as documented in HPI. Endocrine symptoms: Negative except as documented in HPI. [facility] ED PFSH: Medical History Bicytopenia Peripheral arterial disease with history of revascularization Bradycardia Chronic hyponatremia Exertional dyspnea COPD exacerbation Orthostatic hypotension Syncope COPD (chronic obstructive pulmonary disease) Hx of type 2 diabetes mellitus Peripheral vascular disease Hx of chest pain History of hypertension Frequent falls Hx of hyperlipidemia Chronic back pain Postmenopausal Impaired physical mobility Hx of renal calculi Smoker Chronic kidney disease (CKD) Surgical History Hx of tubal ligation Family History Grandmother Clotting disorder Brother Cancer Diabetes Stroke Son Chronic kidney disease (CKD) Mother Diabetes Father Stroke Denies family history of CAD (coronary artery disease) Dementia Suicide Anesthesia complication Bleeding disorder Lung disease Social History Smoking and tobacco/nicotine status: current some day tobacco/nicotine user Alcohol intake: never Substance/Drug Use: never Physical Exam Narrative: EXAM NARRATIVE: General: Alert, no acute distress. Skin: Warm, dry. Head: Normocephalic, atraumatic. Neck: Supple, trachea midline. Eye: Extraocular movements are intact. Ears, nose, mouth and throat: mucosa moist. Cardiovascular: Regular, Normal peripheral perfusion. Respiratory: Lungs are clear to auscultation, respirations are non-labored, breath sounds are equal, Symmetrical chest wall expansion. Gastrointestinal: Soft, Nontender, Non distended Musculoskeletal: Normal ROM, no deformity. Neurological: Alert and oriented, No focal neurological deficit observed. Psychiatric: Cooperative, appropriate mood & affect. Course Vital Signs: Vital signs: Vital Signs Temperature 99.4 F 10/05/24 04:29 Pulse Rate 89 10/05/24 04:53 Respiratory Rate 16 10/05/24 01:52 Blood Pressure 171/83 10/05/24 04:53 Pulse Oximetry 92 10/05/24 04:53 Oxygen Delivery Me thod Room Air 10/05/24 04:53 MDM - Weakness Medical Decision Making Medical decision making: Differential diagnosis for patient presenting with generalized weakness including but not limited to and based on the above HPI, review of systems and physical exam: Sepsis. Dehydration. Renal failure. Electrolyte abnormalities. Anemia. Congestive heart failure. Hypotension. Coronary syndrome. Hepatitis. Cirrhosis. Infections such as pneumonia, urinary tract infection, [place] illness, Cellulitis, Viral infections including influenza and Covid-19. Workup: labwork and lab/exam driven imaging ordered to evaluate, rule in and rule out above pathologies. EKG: Time 2:11 AM. Rate 82. Normal sinus rhythm, No ST-T changes, no ectopy, normal AL & QRS intervals, This was reviewed and interpreted by myself the ER physician at 2:15 AM Lab Review: Laboratory results were reviewed and interpreted by myself the emergency room physician. No leukocytosis. Stable anemia. Stable renal function with BUN/creatinine of 44 and 2.1 which is at her baseline. Initial troponin was slightly elevated but repeat is unchanged. This elevation is due to her renal function. Urinalysis is positive for infection with greater than 100 whites and 4+ bacteria. Chest x-ray: Concern for multifocal left lung pneumonia versus asymmetrical pulmonary edema. CT was ordered to further evaluate. This was reviewed and interpreted by myself the emergency room physician. I also reviewed the radiology report. CT of the chest without contrast: There is a consolidation in the left no consistent with a pneumonia. Films were interpreted by myself the emergency room provider and pending final radiology review. I reviewed the patient's medical record. Reexamination: Patient remained stable. No increased work of breathing. No altered mental status. No focal motor deficits. Vitals are brain normal. No tachycardia. No hypotension. No oxygen requirements. Assessment and plan: Pneumonia Urinary tract infection Dehydration ? IV Rocephin, IV azithromycin, and 500 mL normal saline bolus. Home on Rocephin for the UTI and Levaquin every 48 hours to cover pneumonia. - Discharged home - Discussed plan with patient. Answered any questions. - Evaluation and treatment of this problem were appropriate in the emergency setting. Lab Data 10/05/24 02:04 10/05/24 02:04 Radiology Impressions Chest X-Ray 10/05/24 01:56 IMPRESSION: 1. Multifocal left lung pneumonia favored over asymmetrical pulmonary edema. 2. Moderate retrocardiac hiatal hernia. Chest CT 10/05/24 04:02 IMPRESSION: 1. Dense consolidation in the lingula and left upper lobe. Consistent with pneumonia. Recommend radiographic follow-up after appropriate therapy to ensure resolution. 2. Indeterminate 1.7 cm hypoattenuating lesion in segment 8 of the liver. Given lack of change since 2021, benign etiology is favored. 3. Moderate hiatal hernia. 4. Cholecystolithiasis without evidence of cholecystitis or biliary obstruction. COMMENTS: Consistent with the [employer]'s Incidental Findings Committee white paper (J Am Angely Radiol 2018): Any incidental renal lesion less than 1 cm or classified as too small to characterize, or any incidental cystic renal lesion characterized as simple-appearing, is likely benign. No follow-up imaging is recommended for these lesions per consensus recommendations based on imaging criteria. Laboratory Results WBC 7.95 10^3/uL (3.29-11.43) 10/05/24 02:04 RBC 2.85 10^6/uL (3.85-5.65) L 10/05/24 02:04 Hgb 8.30 g/dL (11.27-16.99) L 10/05/24 02:04 Hct 26.0 % (36-47) L 10/05/24 02:04 MCV 91.2 fl (85-98) 10/05/24 02:04 MCH 29.1 pg (27-33) 10/05/24 02:04 MCHC 31.9 g/dL (30-55) 10/05/24 02:04 RDW 14.1 % (12.1-15.1) 10/05/24 02:04 Plt Count 202 10^3/cmm (157-399) 10/05/24 02:04 MPV 11.2 fL (7.4-10.4) H 10/05/24 02:04 Neut % (Auto) 84.7 % 10/05/24 02:04 Lymph % (Auto) 6.7 % 10/05/24 02:04 [place] % (Auto) 7.7 % 10/05/24 02:04 Eos % (Auto) 0.1 % 10/05/24 02:04 Baso % (Auto) 0.3 % 10/05/24 02:04 Neut # (Auto) 6.74 10^3/uL (1.8-7.7) 10/05/24 02:04 Lymph # (Auto) 0.5 10^3/uL (0.8-4.8) L 10/05/24 02:04 [place] # (Auto) 0.6 10^3/uL (0.2-0.9) 10/05/24 02:04 Eos # (Auto) 0.0 10^3/uL (0.0-0.8) 10/05/24 02:04 Baso # (Auto) 0.0 10^3/uL (0.0-0.1) 10/05/24 02:04 Nucleated RBC % (auto) 0 % 10/05/24 02:04 Nucleated RBCs # 0.0 /100WBC 10/05/24 02:04 Sodium 132 mmol/L (136-145) L 10/05/24 02:04 Potassium 4.0 mmol/L (3.5-5.1) 10/05/24 02:04 Chloride 100 mmol/L (98-107) 10/05/24 02:04 Carbon Dioxide 17 mmol/L (22-29) L 10/05/24 02:04 Anion Gap 19.0 (5-19) 10/05/24 02:04 BUN 44 mg/dL (8-23) H 10/05/24 02:04 Creatinine 2.1 mg/dL (0.5-0.9) H 10/05/24 02:04 GFR Calculation Not Reportable 10/05/24 02:04 Glucose 141 mg/dL (65-115) H 10/05/24 02:04 Calculated Osmolality 288 mOsm/kg (285-295) 10/05/24 02:04 Lactic Acid 1.3 mmol/L (0.5-2.2) 10/05/24 02:04 Calcium 8.2 mg/dL (8.5-10.5) L 10/05/24 02:04 Total Bilirubin 0.3 mg/dL (0.15-1.2) 10/05/24 02:04 AST 14 U/L (0-32) 10/05/24 02:04 ALT 9 U/L (0-33) 10/05/24 02:04 Alkaline Phosphatase 94 U/L (35-105) 10/05/24 02:04 Troponin T Baseline 122 ng/L (0-10) H* 10/05/24 02:04 Troponin T 120 Minute 126.7 ng/L (0-10) H 10/05/24 03:46 Delta Troponin T 4.7 ABS# (0-10) 10/05/24 03:46 Total Protein 6.6 g/dL (6.6-8.7) 10/05/24 02:04 Albumin 3.4 g/dL (3.5-5.2) L 10/05/24 02:04 Globulin 3.2 g/dL (1.3-4.6) 10/05/24 02:04 Procalcitonin 0.19 ng/mL (0-0.5) 10/05/24 02:04 Urine Color Yellow (Yellow) 10/05/24 02:24 Urine Appearance Cloudy (CLEAR) A 10/05/24 02:24 Urine pH 5.5 (5-7) 10/05/24 02:24 Ur Specific [place] 1.013 (1.005-1.030) 10/05/24 02:24 Urine Protein 1+ (Negative) A 10/05/24 02:24 Urine Glucose (UA) Negative (Normal) 10/05/24 02:24 Urine Ketones Negative (Negative) 10/05/24 02:24 Urine Blood Negative (Negative) 10/05/24 02:24 Urine Nitrate Negative (Negative) 10/05/24 02:24 Urine Bilirubin Negative (Negative) 10/05/24 02:24 Urine Urobilinogen 0.2 mg/dL (Negative) 10/05/24 02:24 Ur Leukocyte Esterase 2+ (Negative) A 10/05/24 02:24 Urine RBC 0-2 /hpf (0-2) 10/05/24 02:24 Urine WBC >100 /hpf (0-5) H 10/05/24 02:24 Ur Squamous Epith Cells 0-5 /hpf (0-5) 10/05/24 02:24 Amorphous Sediment Not Reportable 10/05/24 02:24 Urine Bacteria 4+ /hpf (NONE) H 10/05/24 02:24 Hyaline Casts 0.81 /lpf 10/05/24 02:24 All radiology interpretation(s) finalized by discharge Discharge Plan Discharge Patient Disposition: Home Clinical Impression: UTI (urinary tract infection), Pneumonia, Weakness Condition: Stable Prescriptions: New cefdinir 300 mg capsule 300 mg PO BID 7 Days Qty: 14 0RF levofloxacin 750 mg tablet 750 mg PO Q48H 10 Days Qty: 5 0RF No Action hydroxyzine HCl 10 mg tablet 10 mg PO DAILY PRN (Reason: Anxiety) Rx Instructions: Give 1 tablet by mouth every other day for itching and may give 1 tablet daily as needed for anxiety prior to shower. buspirone 10 mg tablet 10 mg PO BID amlodipine 2.5 mg tablet 2.5 mg PO BID ferrous sulfate 325 mg (65 mg iron) tablet 325 mg PO QAM losartan 50 mg tablet 50 mg PO BID hydralazine 100 mg tablet 100 mg PO TID Qty: 270 3RF lovastatin 40 mg tablet 40 mg PO QAM clopidogrel 75 mg tablet 75 mg PO QAM aspirin 81 mg Tablet,Delayed Release (Dr/Ec) 81 mg PO QAM sennosides [senna] 8.6 mg Tablet 8.6 mg PO DAILY PRN (Reason: Constipation) albuterol sulfate 2.5 mg /3 mL (0.083 %) solution for nebulization 2.5 mg inhalation Q4H PRN (Reason: copd) levothyroxine 88 mcg tablet 88 mcg PO QAM magnesium hydroxide [Milk of Magnesia] 400 mg/5 mL Suspension 30 ml PO DAILY PRN (Reason: Constipation) bisacodyl 10 mg Suppository 10 mg AL DAILY PRN (Reason: Constipation) polyethylene glycol 3350 17 gram/dose Powder 17 g PO DAILY PRN (Reason: Constipation) cyanocobalamin (vitamin B-12) 500 mcg Tablet 500 mcg PO QAM alum-mag hydroxide-simeth 200-200-20 mg/5 mL Suspension 30 ml PO Q4H PRN (Reason: Indigestion) Rx Instructions: administer between meals and at bedtime escitalopram oxalate [Lexapro] 10 mg Tablet 10 mg PO QAM melatonin 10 mg Tablet 10 mg PO BEDTIME Artificial Tears (cmc) 1 % Drops 2 drp OPHTHALMIC (EYE) BID naloxone 2 mg/2 mL Syringe Kit 2 mg IM Q3M PRN (Reason: Opioid Overdose) Rx Instructions: NTExceed 10 mg total dose/episode acetaminophen 325 mg Tablet 650 mg PO Q6H PRN (Reason: Pain or temp) pantoprazole 40 mg tablet,delayed release (DR/EC) 40 mg PO DAILY Discharge Orders: Discharge ED (Routine); Ordered 10/05/24 Ordered By: Indu Vizcaino Referrals: Jaret Estrella MD [Primary Care Provider, Internal Medicine] Discharge Diet: Usual diet Discharge Activity: Increase activity as tolerated Patient Instructions: Pneumonia (ED), Urinary Tract Infection in Older Adults (ED), Opioid Safety, Pain Management Activity Restrictions/Additional Instructions: Thank you for choosing [facility] for your healthcare needs today. You have been screened and evaluated and felt safe for discharge. Health conditions do change or evolve sometimes and as such it is important that you follow up with your Primary Doctor to be re checked, 3-5 days is a general good time frame for follow up. You are always welcome to return to the ED for re assessment if your symptoms are worsening or you have new concerns Print Language: Czech Coding Level of Care Code ED [employer] for [employer] Fwd Related Data Home Medications ?Medication ?Instructions ?Recorded ?Confirmed aspirin 81 mg tablet,delayed 81 mg PO QAM 05/06/20 02/25/24 release clopidogrel 75 mg tablet 75 mg PO QAM 05/06/20 02/25/24 lovastatin 40 mg tablet 40 mg PO QAM 05/06/20 02/25/24 albuterol sulfate 2.5 mg/3 mL 2.5 mg inhalation Q4H PRN copd 04/18/22 02/25/24 (0.083 %) solution for nebulization bisacodyl 10 mg rectal suppository 10 mg AL DAILY PRN Constipation 04/18/22 02/25/24 levothyroxine 88 mcg tablet 88 mcg PO QAM 04/18/22 02/25/24 magnesium hydroxide 400 mg/5 mL 30 ml PO DAILY PRN Constipation 04/18/22 02/25/24 oral suspension (Milk of Magnesia) polyethylene glycol 3350 17 17 g PO DAILY PRN Constipation 04/18/22 02/25/24 gram/dose oral powder sennosides 8.6 mg tablet (senna) 8.6 mg PO DAILY PRN Constipation 04/18/22 02/25/24 hydroxyzine HCl 10 mg tablet 10 mg PO DAILY PRN Anxiety 08/16/22 02/25/24 amlodipine 2.5 mg tablet 2.5 mg PO BID 05/07/23 02/25/24 ferrous sulfate 325 mg (65 mg 325 mg PO QAM 05/07/23 02/25/24 iron) tablet losartan 50 mg tablet 50 mg PO BID 05/07/23 02/25/24 aluminum-mag hydroxide-simethicone 30 ml PO Q4H PRN Indigestion 06/12/23 02/25/24 200 mg-200 mg-20 mg/5 mL oral susp carboxymethylcellulose sodium 1 % 2 drp ophthalmic (eye) BID 06/12/23 02/25/24 eye drops (Artificial Tears (carboxymethylcellulose)) cyanocobalamin (vitamin B-12) 500 500 mcg PO QAM 06/12/23 02/25/24 mcg tablet escitalopram oxalate 10 mg tablet 10 mg PO QAM 06/12/23 02/25/24 (Lexapro) melatonin 10 mg tablet 10 mg PO BEDTIME 06/12/23 02/25/24 naloxone 2 mg/2 mL syringe kit 2 mg IM Q3M PRN Opioid Overdose 06/12/23 02/25/24 buspirone 10 mg tablet 10 mg PO BID 09/25/23 02/25/24 acetaminophen 325 mg tablet 650 mg PO Q6H PRN Pain or temp 02/04/24 02/25/24 pantoprazole 40 mg tablet,delayed 40 mg PO DAILY 02/25/24 02/25/24 release Previous Rx's ?Medication ?Instructions ?Recorded hydralazine 100 mg tablet 100 mg PO TID #270 tabs 08/06/23 cefdinir 300 mg capsule 300 mg PO BID 7 days #14 caps 10/05/24 levofloxacin 750 mg tablet 750 mg PO Q48H 10 days #5 tabs 10/05/24 Allergies Allergy/AdvReac Type Severity Reaction Status Date / Time Penicillins Allergy ALGY-Hives Verified 10/05/24 01:58 tetracycline Allergy ALGY-Hives Verified 10/05/24 01:58
[2024-10-05 02:13] LABS: Basophils % 0.3 %; Eosinophils % 0.1 %; Lymphocytes # 0.5 10^3/uL (0.8-4.8); Lymphocytes % 6.7 %; Mean Corpuscular HGB Conc 31.9 g/dL (30-55); Mean Corpuscular Hemoglobin 29.1 pg (27-33); Mean Corpuscular Volume 91.2 fl (85-98); Mean Platelet Volume 11.2 fL (7.4-10.4); Monocytes # 0.6 10^3/uL (0.2-0.9); Monocytes % 7.7 %; Neutrophils # 6.74 10^3/uL (1.8-7.7); Neutrophils % 84.7 %; Nucleated Red Blood Cells % 0 %; Platelet Count 202 10^3/cmm (157-399); Red Blood Count 2.85 10^6/uL (3.85-5.65); Red Cell Distribution Width 14.1 % (12.1-15.1); White Blood Count 7.95 10^3/uL (3.29-11.43)
[2024-10-05 02:30] LABS: Bilirubin Urine Negative (Negative); Blood Urine Negative (Negative); Glucose Urine UA Negative (Normal); Ketones Urine Negative (Negative); Leukocyte Esterase Urine 2+ (Negative); Nitrate Urine Negative (Negative); Protein Urine 1+ (Negative); Specific Gravity, Urine 1.013 (1.005-1.030); Urine Appearance Cloudy (CLEAR); Urine Color Yellow (Yellow); Urobilinogen Urine 0.2 mg/dL (Negative); pH Urine 5.5 (5-7)
[2024-10-05 02:30] LABS: Lactic Sepsis W/Reflex 1.3 mmol/L (0.5-2.2)
[2024-10-05 02:35] LABS: Bacteria Urine 4+ /hpf; Hyaline Casts Urine 0.81 /lpf; RBC Urine 0-2 /hpf (0-2); Squamous Epithelial Cell Urine 0-5 /hpf (0-5); WBC Urine >100 /hpf (0-5)
[2024-10-05 02:35] LABS: Alanine Aminotransferase 9 U/L (0-33); Albumin Level 3.4 g/dL (3.5-5.2); Alkaline Phosphatase 94 U/L (35-105); Aspartate Amino Transferase 14 U/L (0-32); Blood Urea Nitrogen 44 mg/dL (8-23); Calcium 8.2 mg/dL (8.5-10.5); Carbon Dioxide 17 mmol/L (22-29); Chloride 100 mmol/L (98-107); Globulin 3.2 g/dL (1.3-4.6); Glucose 141 mg/dL (65-115); Osmolality Calculated 288 mOsm/kg (285-295); Sodium 132 mmol/L (136-145); Total Protein 6.6 g/dL (6.6-8.7)
[2024-10-05 02:37] LABS: Slide Review Slide Review Perform
[2024-10-05 02:40] LABS: Procalcitonin 0.19 ng/mL (0-0.5)
[2024-10-05 02:54] LABS: Troponin(5th) Baseline 122 ng/L (0-10)
[2024-10-05 02:57] LABS: Add Urine Culture? Yes
--- NOTE | 2024-10-05 04:02 | CTR_ITS ---
PROCEDURE INFORMATION: Exam: CT Chest Without Contrast; Diagnostic Exam date and time: 10/05/2024 4:13 AM Age: 79 years old Clinical indication: Abnormal findings; Abnormal radiologic exam of lung or chest; Shortness of breath, weakness; Additional info: Abnormal chest xray TECHNIQUE: Imaging protocol: Diagnostic computed tomography of the chest without contrast. Radiation optimization: All CT scans at this facility use at least one of these dose optimization techniques: automated exposure control; mA and/or kV adjustment per patient size (includes targeted exams where dose is matched to clinical indication); or iterative reconstruction. COMPARISON: CR (CHEST, ) 10/05/2024 2:[address] Abdomen/Pelvis 03/01/22 RADIATION DOSE METRICS: Total DLP (mGy-cm): 356.3 FINDINGS: Lungs: Dense consolidation in the lingula and left upper lobe. Pleural spaces: Unremarkable. No pneumothorax. No pleural effusion. Heart: Dense mitral annular calcifications. Normal heart size. Coronary arteries: Coronary artery calcifications are present. Lymph nodes: Unremarkable. No enlarged lymph nodes. Vasculature: Aortic atherosclerotic disease is seen without evidence of aneurysm. Diaphragm: Moderate hiatal hernia. Liver: Indeterminate 1.7 cm hypoattenuating lesion in segment 8 of the liver. No significant change since prior exam. Gallbladder and biliary ducts: Multiple gallstones are present in an otherwise normal-appearing gallbladder. No evidence of biliary obstruction. Kidneys: 3.7 cm left renal cyst. Bones/joints: Unremarkable. No acute fracture. Soft tissues: Unremarkable. CT/CT chest wo con [id number] IMPRESSION: 1. Dense consolidation in the lingula and left upper lobe. Consistent with pneumonia. Recommend radiographic follow-up after appropriate therapy to ensure resolution. 2. Indeterminate 1.7 cm hypoattenuating lesion in segment 8 of the liver. Given lack of change since 2021, benign etiology is favored. 3. Moderate hiatal hernia. 4. Cholecystolithiasis without evidence of cholecystitis or biliary obstruction. COMMENTS: Consistent with the [employer]'s Incidental Findings Committee white paper (J Am Angely Radiol 2018): Any incidental renal lesion less than 1 cm or classified as too small to characterize, or any incidental cystic renal lesion characterized as simple-appearing, is likely benign. No follow-up imaging is recommended for these lesions per consensus recommendations based on imaging criteria.
[2024-10-05 04:13] LABS: Troponin 5 2HR Delta 4.7 ABS# (0-10)
[2024-10-05] MEDS: sodium chloride 0.9% 500 ML 999 ML IV (04:24)
[2024-10-05] MEDS: cefTRIAXone 1,000 mg SDV 1000 MG IVP (04:24)
[2024-10-05 04:35] LABS: Troponin 5 2HR 126.7 ng/L (0-10)
[2024-10-05 04:40] LABS: Total Bilirubin 0.3 mg/dL (0.15-1.2)
[2024-10-05] MEDS: AZITHROMYCIN ADD-Vantage 500 MG in 0.9% NaCl ADD-Vantage 250 ML 250 MG IV (04:52)
[2024-10-07 04:35] LABS: Bacillus cereus group Not Detected (NOT DETECT); Bacillus subtillis group Not Detected (NOT DETECT); Corynebacterium Not Detected (NOT DETECT); Cutibacterium acnes (P.acnes) Not Detected (NOT DETECT); Enterococcus Not Detected (NOT DETECT); Enterococcus faecalis Not Detected (NOT DETECT); Enterococcus faecium Not Detected (NOT DETECT); Lactobacillus species Not Detected (NOT DETECT); Listeria Not Detected (NOT DETECT); Listeria monocytogenes Not Detected (NOT DETECT); Micrococcus Not Detected (NOT DETECT); Pan Candida Not Detected (NOT DETECT); Pan Gram-Negative Not Detected (NOT DETECT); Staphylococcus epidermidis Not Detected (NOT DETECT); Staphylococcus lugdunensis Not Detected (NOT DETECT); Staphylococcus species Detected (NOT DETECT); Streptococcus agalactiae Not Detected (NOT DETECT); Streptococcus anginosus group Not Detected (NOT DETECT); Streptococcus pneumoniae Not Detected (NOT DETECT); Streptococcus pyogenes Not Detected (NOT DETECT); Streptococcus species Not Detected (NOT DETECT); mecA Not Detected (NOT DETECT); mecC Not Detected (NOT DETECT)
== END 2024-10-05 06:30 | disposition home or self-care (01) ==
PROVIDERS: Emergency Provider Emergency Medicine; PCP Internal Medicine
DX: N39.0 Urinary tract infection, site not specified (principal); J18.9 Pneumonia, unspecified organism; R53.1 Weakness; Z79.02 Long term (current) use of antithrombotics/antiplatelets; Z79.82 Long term (current) use of aspirin; Z72.0 Tobacco use; J44.9 Chronic obstructive pulmonary disease, unspecified; E78.5 Hyperlipidemia, unspecified; E11.22 Type 2 diabetes mellitus with diabetic chronic kidney disease; I12.9 Hypertensive chronic kidney disease with stage 1 through stage 4 chronic kidney disease, or unspecified chronic kidney disease; N18.9 Chronic kidney disease, unspecified
CPT/HCPCS: 71045; 71250; 80053; 81001; 83605; 84145; 84484; 85025; 87040; 87077; 87086; 87150; 87186; 87205; 93005; 96365; 96366; 96375; 99285; J0456; J0696; J7040; J7050

== ENCOUNTER 2024-10-05 20:14 | Inpatient (IN) | payer MEDICARE, MEDICAID, SELFPAY ==
[2024-10-05] VITALS (21 sets, daily range): BP systolic 88–172; BP diastolic 37–64; PULSE 91–113; RESP 14–34; TEMP 35.9–36.4; O2SAT 86–99; BMI 22.1
--- NOTE | 2024-10-05 20:12 | ECG_ITS ---
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 Measurements Intervals [place] Rate: 116 P: 73 MD: 139 QRS: 87 QRSD: 72 T: 261 QT: 340 QTc: 472 Interpretive Statements SINUS TACHYCARDIA WITH OCCASIONAL SUPRAVENTRICULAR PREMATURE COMPLEXES LEFT VENTRICULAR HYPERTROPHY AND ST-T CHANGE [VOLTAGE CRITERIA PLUS ST/T ABNORMALITY] Compared to ECG 10/05/2024 02:11:18 Sinus rhythm no longer present ST (T wave) deviation still present Electronically Signed On 10-07-2024 06:09:05 CDT by Gris Hughes M.D. [id number] [id number]
--- NOTE | 2024-10-05 20:16 | XRR_ITS ---
PROCEDURE INFORMATION: Exam: XR Chest Exam date and time: 10/05/2024 8:28 PM Age: 79 years old Clinical indication: Pain; Chest pressure; Stemi; Additional info: Chest pain TECHNIQUE: Imaging protocol: Radiologic exam of the chest. Views: 1 view. COMPARISON: CT chest con [id number] 10/05/2024 4:13 AM FINDINGS: Tubes, catheters and devices: Overlying monitor leads and pacer-defibrillator pads as well as oxygen tubing. Lungs: Patchy opacity is seen within the lungs, more prominent upper left lung and lower right lung. This demonstrates interval change in appearance from exam earlier same date at 2:00 a.m. this could represent patchy asymmetric edema bilaterally and/or patchy infiltrate/pneumonia/aspiration. Pleural spaces: No significant pleural effusion. No pneumothorax. Heart/Mediastinum: No cardiomegaly. Vasculature: Arteriosclerosis thoracic aorta. Bones/joints: Visualized osseous structures show no acute abnormality. XR/XR chest 1V portable [id number] IMPRESSION: 1. Scattered patchy opacity within the lungs, more prominent upper left lung and lower right lung, likely representing patchy edema though pneumonia/aspiration are also considerations. 2. No cardiomegaly. No significant pleural effusion.
--- NOTE | 2024-10-05 20:30 | W.ED.SOB ---
HPI - SOB/Dyspnea General: Chief Complaint: Shortness of Breath/Dyspnea Stated Complaint: cp, sob Time Seen by Provider: 10/05/24 20:16 History of Present Illness: HPI Narrative: 79-year-old female with a history of peripheral arterial disease, chronic hyponatremia, COPD, type 2 diabetes, hypertension and hyperlipidemia who presents the emergency room by ambulance from custodial with respiratory failure and chest pain. I had seen her overnight. I diagnosed her with a pneumonia on the left side and a urinary tract infection. At that time her vitals have been normal. She was not requiring oxygen. Lab work was rather unremarkable. No leukocytosis or lactic acidosis. Serial troponins were unchanged and elevated secondary to her chronic renal insufficiency which was around her baseline. custodial reports that this afternoon they found her to be hypoxemic and in respiratory distress and complaining of some chest pain. On arrival she is on a nonrebreather. Her EKG was concerning for STEMI and so this was called in the field. Dr. Stein evaluated her in the ER and looked at the EKGs and spoke with family and took her rather quickly to the [facility]. Related Data Home Medications ?Medication ?Instructions ?Recorded ?Confirmed aspirin 81 mg tablet,delayed 81 mg PO QAM 05/06/20 02/25/24 release clopidogrel 75 mg tablet 75 mg PO QAM 05/06/20 02/25/24 lovastatin 40 mg tablet 40 mg PO QAM 05/06/20 02/25/24 albuterol sulfate 2.5 mg/3 mL 2.5 mg inhalation Q4H PRN copd 04/18/22 02/25/24 (0.083 %) solution for nebulization bisacodyl 10 mg rectal suppository 10 mg DE DAILY PRN Constipation 04/18/22 02/25/24 levothyroxine 88 mcg tablet 88 mcg PO QAM 04/18/22 02/25/24 magnesium hydroxide 400 mg/5 mL 30 ml PO DAILY PRN Constipation 04/18/22 02/25/24 oral suspension (Milk of Magnesia) polyethylene glycol 3350 17 17 g PO DAILY PRN Constipation 04/18/22 02/25/24 gram/dose oral powder sennosides 8.6 mg tablet (senna) 8.6 mg PO DAILY PRN Constipation 04/18/22 02/25/24 hydroxyzine HCl 10 mg tablet 10 mg PO DAILY PRN Anxiety 08/16/22 02/25/24 amlodipine 2.5 mg tablet 2.5 mg PO BID 05/07/23 02/25/24 ferrous sulfate 325 mg (65 mg 325 mg PO QAM 05/07/23 02/25/24 iron) tablet losartan 50 mg tablet 50 mg PO BID 05/07/23 02/25/24 aluminum-mag hydroxide-simethicone 30 ml PO Q4H PRN Indigestion 06/12/23 02/25/24 200 mg-200 mg-20 mg/5 mL oral susp carboxymethylcellulose sodium 1 % 2 drp ophthalmic (eye) BID 06/12/23 02/25/24 eye drops (Artificial Tears (carboxymethylcellulose)) cyanocobalamin (vitamin B-12) 500 500 mcg PO QAM 06/12/23 02/25/24 mcg tablet escitalopram oxalate 10 mg tablet 10 mg PO QAM 06/12/23 02/25/24 (Lexapro) melatonin 10 mg tablet 10 mg PO BEDTIME 06/12/23 02/25/24 naloxone 2 mg/2 mL syringe kit 2 mg IM Q3M PRN Opioid Overdose 06/12/23 02/25/24 buspirone 10 mg tablet 10 mg PO BID 09/25/23 02/25/24 acetaminophen 325 mg tablet 650 mg PO Q6H PRN Pain or temp 02/04/24 02/25/24 pantoprazole 40 mg tablet,delayed 40 mg PO DAILY 02/25/24 02/25/24 release Previous Rx's ?Medication ?Instructions ?Recorded hydralazine 100 mg tablet 100 mg PO TID #270 tabs 08/06/23 cefdinir 300 mg capsule 300 mg PO BID 7 days #14 caps 10/05/24 levofloxacin 750 mg tablet 750 mg PO Q48H 10 days #5 tabs 10/05/24 Allergies Allergy/AdvReac Type Severity Reaction Status Date / Time Penicillins Allergy ALGY-Hives Verified 10/05/24 20:36 tetracycline Allergy ALGY-Hives Verified 10/05/24 20:36 Review of Systems Narrative: Constitutional symptoms: Negative except as documented in HPI. Skin symptoms: Negative except as documented in HPI. Eye symptoms: Negative except as documented in HPI. ENMT symptoms: Negative except as documented in HPI. Respiratory symptoms: Negative except as documented in HPI. Cardiovascular symptoms: Negative except as documented in HPI. Gastrointestinal symptoms: Negative except as documented in HPI. Genitourinary symptoms: Negative except as documented in HPI. Musculoskeletal symptoms: Negative except as documented in HPI. Neurologic symptoms: Negative except as documented in HPI. Psychiatric symptoms: Negative except as documented in HPI. Endocrine symptoms: Negative except as documented in HPI. PFSH ED PFSH: Medical History Bicytopenia Peripheral arterial disease with history of revascularization Bradycardia Chronic hyponatremia Exertional dyspnea COPD exacerbation Orthostatic hypotension Syncope COPD (chronic obstructive pulmonary disease) Hx of type 2 diabetes mellitus Peripheral vascular disease Hx of chest pain History of hypertension Frequent falls Hx of hyperlipidemia Chronic back pain Postmenopausal Impaired physical mobility Hx of renal calculi Smoker Chronic kidney disease (CKD) Surgical History Hx of tubal ligation Family History Grandmother Clotting disorder Brother Cancer Diabetes Stroke Son Chronic kidney disease (CKD) Mother Diabetes Father Stroke Denies family history of CAD (coronary artery disease) Dementia Suicide Anesthesia complication Bleeding disorder Lung disease Social History Smoking and tobacco/nicotine status: current some day tobacco/nicotine user Alcohol intake: never Substance/Drug Use: never Physical Exam Narrative: EXAM NARRATIVE: General: Alert, patient appears ill and in some distress Skin: Warm, dry. Head: Normocephalic, atraumatic. Neck: Supple, trachea midline. Eye: Extraocular movements are intact. Ears, nose, mouth and throat: Tacky oral mucosa Cardiovascular: Regular, tachycardic, appears slightly mottled Respiratory: Coarse breath sounds with tachypnea and mild increased work of breathing Gastrointestinal: Soft, Nontender, Non distended Musculoskeletal: Normal ROM, no deformity. Neurological: Alert, No focal neurological deficit observed. Psychiatric: Cooperative Course Vital Signs: Vital signs: Vital Signs Temperature 96.7 F L 10/05/24 20:17 Pulse Rate 109 H 10/05/24 21:00 Respiratory Rate 32 H 10/05/24 22:32 Blood Pressure 114/51 10/05/24 20:35 Pulse Oximetry 92 10/05/24 22:32 Oxygen Delivery Me thod BiPAP 10/05/24 21:00 Oxygen Flow Rate 15 10/05/24 20:17 Fraction of Inspir ed Oxygen 100 10/05/24 22:32 MDM - SOB/Dyspnea Medical Decision Making Differential diagnosis for patient with shortness of breath includes but is not limited to and based on the above HPI, review of systems and physical exam: Pneumonia. Bronchitis. Asthma or COPD with acute exacerbation. Acute coronary syndrome / PR. Pulmonary embolism. Anxiety. Congestive heart failure. Viral infections including influenza and Covid-19. Atrial fibrillation. Anxiety. Pleural effusion. Pneumothorax. Orders placed to evaluate differential diagnosis based on the above differential, HPI and physical exam EKG: Time 2011. Rate 116. Sinus tachycardia, ST elevation with some ST depression. No ectopy, normal DE & QRS intervals, This was reviewed and interpreted by myself the ER physician at 2012. This was reviewed by cardiology who felt like this needed to go to the [facility]. Chest x-ray: Worsening pneumonia. Now bilateral. Films were interpreted by myself the emergency room provider and pending final radiology review. Consultation: Cardiology was consulted and patient taken to [facility] shortly after arrival in the emergency room. Assessment and plan: Chest pain ST elevation myocardial infarction - Evaluation and treatment of this problem were appropriate in the emergency setting Lab Data 10/05/24 20:41 10/05/24 20:41 Labs/Radiology: Laboratory Results WBC 14.10 10^3/uL (3.29-11.43) H 10/05/24 20:41 RBC 2.75 10^6/uL (3.85-5.65) L 10/05/24 20:41 Hgb 8.00 g/dL (11.27-16.99) L 10/05/24 20:41 Hct 25.3 % (36-47) L 10/05/24 20:41 MCV 92.0 fl (85-98) 10/05/24 20:41 MCH 29.1 pg (27-33) 10/05/24 20:41 MCHC 31.6 g/dL (30-55) 10/05/24 20:41 RDW 14.4 % (12.1-15.1) 10/05/24 20:41 Plt Count 208 10^3/cmm (157-399) 10/05/24 20:41 MPV 11.8 fL (7.4-10.4) H 10/05/24 20:41 Neut % (Auto) 91.1 % 10/05/24 20:41 Lymph % (Auto) 3.8 % 10/05/24 20:41 [place] % (Auto) 4.3 % 10/05/24 20:41 Eos % (Auto) 0.1 % 10/05/24 20:41 Baso % (Auto) 0.2 % 10/05/24 20:41 Neut # (Auto) 12.83 10^3/uL (1.8-7.7) H 10/05/24 20:41 Lymph # (Auto) 0.5 10^3/uL (0.8-4.8) L 10/05/24 20:41 [place] # (Auto) 0.6 10^3/uL (0.2-0.9) 10/05/24 20: Eos # (Auto) 0.0 10^3/uL (0.0-0.8) 10/05/24 20: Baso # (Auto) 0.0 10^3/uL (0.0-0.1) 10/05/24 20: Nucleated RBC % (auto) 0 % 10/05/24: Nucleated RBCs # 0.0 /100WBC 10/05/24 20:41 Sodium 129 mmol/L (136-145) L 10/05/24 20:41 Potassium 3.7 mmol/L (3.5-5.1) 10/05/24 20:41 Chloride 97 mmol/L (98-107) L 10/05/24 20:41 Carbon Dioxide 13 mmol/L (22-29) L 10/05/24 20:41 Anion Gap 22.7 (5-19) H 10/05/24 20:41 BUN 44 mg/dL (8-23) H 10/05/24 20:41 Creatinine 2.2 mg/dL (0.5-0.9) H 10/05/24 20:41 GFR Calculation Not Reportable 10/05/24 20: Glucose 280 mg/dL (65-115) H 10/05/24 20:41 Calculated Osmolality 289 mOsm/kg (285-295) 10/05/24 20:41 Lactic Acid 4.2 mmol/L (0.5-2.2) H* 10/05/24 20:41 Calcium 7.9 mg/dL (8.5-10.5) L 10/05/24 20:41 Total Bilirubin 0.2 mg/dL (0.15-1.2) 10/05/24 20:41 AST 18 U/L (0-32) 10/05/24 20:41 ALT 8 U/L (0-33) 10/05/24 20:41 Alkaline Phosphatase 87 U/L (35-105) 10/05/24 20:41 Troponin T Baseline 348 ng/L (0-10) H* 10/05/24 20:41 NT-Pro-B Natriuret Pep 31767 pg/mL (0-450) H 10/05/24 20:41 Total Protein 6.1 g/dL (6.6-8.7) L 10/05/24 20:41 Albumin 3.1 g/dL (3.5-5.2) L 10/05/24 20:41 Globulin 3.0 g/dL (1.3-4.6) 10/05/24 20:41 XR interpretation done by ED provider, pending radiology final review Discharge Plan Discharge Patient Disposition: Admitted As Inpatient Admit Provider: Chaz Stein Clinical Impression: ST elevation myocardial infarction (STEMI) Condition: Stable Coding Level of Care Code ED Rehab Rn for John Paul Jones
--- NOTE | 2024-10-05 20:31 | XACV_ITS ---
Exam Room: 2 Ht: 160 cm Wt: 50 kg BSA: 1.49 m2 Gender: Female : 1945 Any Known Allergies: Other Exam Priority: Routine Procedure(s): Procedure Description: Diagnostic procedure Procedure Description: PCI procedure Procedure Description: Coronary IVUS Procedure Description: Drug Eluting Coronary Stent Procedure Description: PTCA Procedure Description: Miscellaneous Procedure Description: ACT Procedure Description: Coronary Angiography Diagnostic Cath Status: Urgent Diagnostic Findings * INDICATION: NSTEMI/ Acute respiratory failure/ Acute pulmonary edema. * Left Main has no significant disease. * Circumflex has mild luminal irregularities. * Right Coronary Artery has moderate luminal irregularities. * Ostial Left Anterior Descending: critical 95% stenosis, VINI: 3 flow. * Coronary angiography shows right dominance. PCI Status: Urgent PCI Indication: NSTE - ACS Interventional Findings * Procedure detail:We engaged left main artery with XB 3.0 guide catheter. IV heparin was administered to maintain anticoagulation. Run-through wire was used to cross the ostial LAD stenosis and was put in distal vessel. Stenosis was predilated with 2.5 x 12 mm semicompliant balloon. This was followed by predilation with 2.5 x 12 mm NC balloon. We then placed 3.0 x 18 mm resolute Alejandra drug-eluting stent at ostial LAD stenosis. However there was residual stenosis prior to the stent. IVUS was performed and and at the 3.5 x 15 mm resolute [place] drug-eluting overlapping stent was placed from left main into LAD. We then postdilated the left main into LAD stent with 3.75 x 15 mm NC balloon. At this time final angiogram was performed that showed excellent stent expansion, no residual stenosis and to 3 flow. Guidewire and guide catheter were removed. Patient had at that time some worsening shortness of breath. She was intubated by ER attending, Dr. Chahal. Was transferred to ICU. . * Proximal Left Anterior Descendin% stenosis treated with a AB TREK 2.50X12 RX BALLOON, MDT NC EUPHORA RX [id number] BALLOON, MDT R ALEJANDRA 3.0X18 GREG, MDT R ALEJANDRA 3.5X15 GREG, and MDT NC EUPHORA RX [id number] BALLOON. 0% residual stenosis, VINI: 3 flow. Conclusions 1. Critical ostial LAD stenosis with a haziness status post accessible revascularization of left main to LAD with 2 stents.. 2. Proximal Left Anterior Descending was treated with a Balloon, Balloon, Drug Eluting Stent, Drug Eluting Stent, and Balloon. Recommendations * Dual antiplatelet therapy. * We will consult medicine team to help with medical therapy/ and vent managment. Interventional RX Recommendation: PCI w/o planned CABG Diagnostic RX Recommendation: PCI w/o planned CABG Anticoagulation: Heparin Pressures Phase:Rest AO : 108 / 67 ( 86 ) @ 5:15:47 PM 106 / 73 ( 88 ) @ 5:15:47 PM 103 / 60 ( 80 ) @ 5:15:47 PM 93 / 60 ( 75 ) @ 5:15:47 PM 107 / 63 ( 83 ) @ 5:15:47 PM Clinical Evaluation EBL: 5mL-10mL Procedural Details Procedure Consent Obtained. Current Diagnosis : NSTEMI. Pre-Procedure Time Out. Identified patient by full name and date of as verbalized by the patient/guarantor. Does the consent match the physician's order: N/A Emergent. Accurate & Complete Informed Consent: N/A Emergent. Inpatient/Outpatient History & Physical on Chart: N/A Emergent. If H&P is completed, is and addenduem needed: N/A Emergent; If yes, is the addendum complete: N/A Emergent. Visualize and Verify Site with Patient/Guarantor: N/A. Relevant Radiology Images available: N/A Emergent. Pre-op teaching completed and patient verbalized understanding. The risks, benefits, and alternatives of sedation and/or procedure were discussed by physician. The patient agrees to continue. Procedure started. Physician arrived. [facility] Clinical Fraility Score: 7: Severely Frail. Patrol Officer Indications: ACS > 24 hours. Chest Pain Symptom Assessment: Atypical Angina. Correct patient, site and procedure confirmed by cath team. Current diagnosis: NSTEMI. PERRLA. 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 Lungs clear x 5 lobes. IV Site on Arrival: 18 gauge in the right wrist. IV Site on Arrival: 18 gauge in the left wrist. IV Fluids: 0.9% NaCl at KVO. 0 mL infused prior to labeler. bilateral groins was prepped with chloroprep then draped in the usual sterile fashion. Baseline sample Acquired. HR: 107 BPM. Patient arrived on BiPap. Physician scrubbed in. Immediate Pre-Procedure Time Out. Correct Patient: Yes; Correct Procedure: Yes; Correct Site: Yes; Correct Patient Position: Yes; Correct Supplies: Yes; Dried Flammable Prep: Yes; Blood Products Available: N/A;. Lidocaine 1% infiltrated to the right groin. Ultrasound being used to obtain arterial access. Arterial access obtained with micropuncture set. A 5 tajik JR4 catheter in over wire. Wire out. Glidewire inserted. Wire out. Multiple views taken of right coronary artery. Catheter removed over the exchange wire. A 5 tajik JL4 catheter in over wire. Catheter removed over the exchange wire. 6 tajik XB 3 guide catheter was inserted over the wire. Runthrough guidewire was advanced through the guide catheter to lesion in the prox Circ. A second Runthrough guidewire was advanced through the guide catheter to lesion in the prox LAD. Inflation number : 1 A AB TREK 2.50X12 RX BALLOON was prepped and advanced across the Prox LAD , then inflated to 12 ERMELINDA for 0:08 seconds. Inflation number: 2 The AB TREK 2.50X12 RX BALLOON was reinflated across the Prox LAD, to 12 ERMELINDA for 0:12 seconds. Balloon out. Inflation number : 3 A MDT NC EUPHORA RX [id number] BALLOON was prepped and advanced across the Prox LAD , then inflated to 12 ERMELINDA for 0:15 seconds. Balloon out. Runthrough wire removed from the CX. Guideliner inserted OTW. Inflation Number : 4 A MDT R ALEJANDRA 3.0X18 GREG -Lot Number# _[id number]_ EXP: 03/17/2027 was prepped and advanced across the Prox LAD. The stent was deployed at 12 ERMELINDA for 0:21 seconds. Stent balloon out over wire. Results checked. Guideliner removed OTW. IVUS catheter inserted OTW and advanced to the LAD. Measurements obtained. IVUS catheter out OTW. Inflation Number : 5 A MDT R ALEJANDRA 3.5X15 GREG -Lot Number# _[id number] EXP: 09/24/2026 was prepped and advanced across the Prox LAD. The stent was deployed at 14 ERMELINDA for 0:16 seconds. Stent balloon out over wire. Results checked. IVUS catheter inserted OTW and advanced to the LAD. Measurements obtained. IVUS catheter out OTW. Critical labs called and relayed to Dr. Stein. Lactic Acid: 4.2 Troponin: 348. Inflation number : 6 A MDT NC EUPHORA RX [id number] BALLOON was prepped and advanced across the Prox LAD , then inflated to 16 ERMELINDA for 0:16 seconds. Inflation number: 7 The MDT NC EUPHORA RX [id number] BALLOON was reinflated across the Prox LAD, to 12 ERMELINDA for 0:09 seconds. Balloon out. Results checked. Wire out. ACT drawn. Results 271 seconds. Therapeutic limits - pre-heparin administration 90-150 seconds and monitoring heparin during a vascular procedure >250 seconds. Guide catheter out. A Right femoral angiogram was performed to determine safe placement of closure device. A Suture was successful obtaining hemostatsis at the Right Femoral artery insertion site. Sheath(s) sutured into position with 2-0 silk and sterile 4x4's and Op-site applied over the site. No oozing or signs and symptoms of hematoma noted. Arterial sheath flushed and connected to tranducer and pressure bag with heparinized saline. Post Procedure: Pulses reassessed and unchanged. PERRLA. 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 No VTE prophylaxis required. Medication's Wasted: Lidocaine 1% = 10 mL. Medication's Wasted: Other = Fentanyl 25 mcg. Medication's Wasted: Heparin = 1000 units. Post-op diagnosis: CAD. Complications: None. Vital chart was stopped. Estimated blood loss: 5mL-10mL. Responsiveness - Normal response to verbal stimuli; alert and oriented, PERRLA. Airway - Unaffected, no intervention required; spontaneous ventilation. Circulation: W/N/L, pulses unchanged. Nausea/Vomiting: No. Procedure completed. ER Physician called to intubate the patient. Dr. Chahal arrived to intubate. The patients family has been updated by Dr. Stein. Patient transferred by bed to ICU. Vital chart was stopped. Access Site Site: Right Femoral artery Sheath Size: 6 Fr Hemostasis Method: Suture Hemostasis Success: Successful Procedure Medications Start: 8:49 PM Stop: 8:49 PM Medication: Versed 1 mg and Fentanyl 25 mcg Amount: 1 Route: I.V. Start: 9:04 PM Stop: 9:04 PM Medication: Heparin Amount: 1000 units Route: I.V. Start: 9:06 PM Stop: 9:06 PM Medication: Fentanyl Amount: 25 mcg Route: I.V. Start: 9:14 PM Stop: 9:14 PM Medication: Versed 1 mg and Fentanyl 25 mcg Amount: 1 Route: I.V. Start: 9:55 PM Stop: 9:55 PM Medication: Lasix (furosemide) Amount: 40 mg Route: I.V. I, the attending physician, have reviewed and verified all procedure medications. Yes, all medications given per verbal order History/Risk Factors Hypertension: No Dyslipidemia: No Peripheral Arterial Disease (PAD): No Myocardial Infarction (NC): No Obesity: No Renal Disease: No Prior Interventions PCI: No CABG: No Valve Surgery: No Report Signatures Finalized by Chaz Stein MD on 10/16/2024 04:53 PM
--- NOTE | 2024-10-05 20:34 | PM.HP ---
Providers/Chief Complaint Admitting Physician: Chaz Stein MD Primary Care Provider: Aakash Estrella MD Chief Complaint: Chest pain/ Shortness of breath History of Present Illness Maria Isabel Ho is a 79 year old female who has been brought from nursing facility secondary to acute respiratory failure. Also has been having substernal chest discomfort. Serial EKG done by EMS shows Wellen's sign concerning for LAD disease. Patient and family want to reverse DNR CODE STATUS back to full code for now. Spoke to patient's son as well. She has CKD. Last creatinine is 2.1. Patient has been having shortness of breath however on mask has improved. She is on aspirin and Plavix as outpatient. Patient was found to have pneumonia and UTI at home. Review of Systems General: Reports: 10 or more systems reviewed and unremarkable except in HPI and below Medications/Allergies Home Medications ?Medication ?Instructions ?Recorded ?Confirmed ?Last Taken ?Type aspirin 81 mg tablet,delayed 81 mg PO QAM 05/06/20 02/25/24 02/29/24 History release clopidogrel 75 mg tablet 75 mg PO QAM 05/06/20 02/25/24 02/25/24 History lovastatin 40 mg tablet 40 mg PO QAM 05/06/20 02/25/24 02/25/24 History albuterol sulfate 2.5 mg/3 mL 2.5 mg inhalation Q4H PRN copd 04/18/22 02/25/24 Unknown History (0.083 %) solution for nebulization bisacodyl 10 mg rectal suppository 10 mg NE DAILY PRN Constipation 04/18/22 02/25/24 Unknown History levothyroxine 88 mcg tablet 88 mcg PO QAM 04/18/22 02/25/24 02/29/24 History magnesium hydroxide 400 mg/5 mL 30 ml PO DAILY PRN Constipation 04/18/22 02/25/24 Unknown History oral suspension (Milk of Magnesia) polyethylene glycol 3350 17 17 g PO DAILY PRN Constipation 04/18/22 02/25/24 Unknown History gram/dose oral powder sennosides 8.6 mg tablet (senna) 8.6 mg PO DAILY PRN Constipation 04/18/22 02/25/24 Unknown History hydroxyzine HCl 10 mg tablet 10 mg PO DAILY PRN Anxiety 08/16/22 02/25/24 06/11/23 History amlodipine 2.5 mg tablet 2.5 mg PO BID 05/07/23 02/25/24 03/01/24 History ferrous sulfate 325 mg (65 mg 325 mg PO QAM 05/07/23 02/25/24 02/29/24 History iron) tablet losartan 50 mg tablet 50 mg PO BID 05/07/23 02/25/24 02/29/24 History aluminum-mag hydroxide-simethicone 30 ml PO Q4H PRN Indigestion 06/12/23 02/25/24 Unknown History 200 mg-200 mg-20 mg/5 mL oral susp carboxymethylcellulose sodium 1 % 2 drp ophthalmic (eye) BID 06/12/23 02/25/24 02/29/24 History eye drops (Artificial Tears (carboxymethylcellulose)) cyanocobalamin (vitamin B-12) 500 500 mcg PO QAM 06/12/23 02/25/24 02/29/24 History mcg tablet escitalopram oxalate 10 mg tablet 10 mg PO QAM 06/12/23 02/25/24 02/29/24 History (Lexapro) melatonin 10 mg tablet 10 mg PO BEDTIME 06/12/23 02/25/24 02/29/24 History naloxone 2 mg/2 mL syringe kit 2 mg IM Q3M PRN Opioid Overdose 06/12/23 02/25/24 Unknown History hydralazine 100 mg tablet 100 mg PO TID #270 tabs 08/06/23 02/25/24 02/29/24 Rx buspirone 10 mg tablet 10 mg PO BID 09/25/23 02/25/24 02/29/24 History acetaminophen 325 mg tablet 650 mg PO Q6H PRN Pain or temp 02/04/24 02/25/24 02/29/24 History pantoprazole 40 mg tablet,delayed 40 mg PO DAILY 02/25/24 02/25/24 02/29/24 History release cefdinir 300 mg capsule 300 mg PO BID 7 days #14 caps 10/05/24 Unknown Rx levofloxacin 750 mg tablet 750 mg PO Q48H 10 days #5 tabs 10/05/24 Unknown Rx Allergies Allergy/AdvReac Type Severity Reaction Status Date / Time Penicillins Allergy ALGY-Hives Verified 10/05/24 20:36 tetracycline Allergy ALGY-Hives Verified 10/05/24 20:36 PFSH Acute PFSH: Medical History Bicytopenia Peripheral arterial disease with history of revascularization Bradycardia Chronic hyponatremia Exertional dyspnea COPD exacerbation Orthostatic hypotension Syncope COPD (chronic obstructive pulmonary disease) Hx of type 2 diabetes mellitus Peripheral vascular disease Hx of chest pain History of hypertension Frequent falls Hx of hyperlipidemia Chronic back pain Postmenopausal Impaired physical mobility Hx of renal calculi Smoker Chronic kidney disease (CKD) Surgical History Hx of tubal ligation Family History Grandmother Clotting disorder Brother Cancer Diabetes Stroke Son Chronic kidney disease (CKD) Mother Diabetes Father Stroke Denies family history of CAD (coronary artery disease) Dementia Suicide Anesthesia complication Bleeding disorder Lung disease Social History Smoking and tobacco/nicotine status: current some day tobacco/nicotine user Alcohol intake: never Substance/Drug Use: never Physical Exam Narrative: GENERAL: Patient is alert NECK: No jugular vein distension. [] HEENT: No cyanosis. No icterus. No pallor. [] HEART: Regular S1 and S2. No murmur, rub or gallop. [] LUNGS: Diminished air entry bilaterally CENTRAL NERVOUS SYSTEM: Grossly nonfocal. [] EXTREMITIES: Lower extremities with 1+ edema bilaterally. A&P Assessment and plan (1) Unstable angina: (2) Peripheral arterial disease with history of revascularization: (3) Paroxysmal atrial flutter: (4) Benign hypertension: (5) Chronic kidney disease (CKD): (6) Pneumonia: Plan Patient has presented with acute respiratory failure with possible pulmonary edema. She is having severe substernal chest pain. Has dynamic EKG changes and EMS EKG is concerning for Wellen sign. Will emergently take her to cardiac Mingler Operator and perform coronary angiogram. Patient's CODE STATUS at nursing facility is DNR. However speaking to patient and family they want to reverse it to full code for now. Patient loaded with aspirin, Plavix and heparin bolus given. We will consult medicine team as has multiple medical problems with diagnosis of pneumonia and UTI Ordering echocardiogram PDMP PDMP Reviewed: Not Reviewed Attestations Medical Necessity Statement*: Care expected to cross 2 midnights. Patient has presented with respiratory failure with possible pulmonary edema and dynamic ischemic EKG changes. Going for coronary intervention. Coding Level of Care Code Acute Code for Chg Fwd Diagnoses Unstable angina I20.0 Peripheral arterial disease with history of revascularization I73.9; Z98.890 Paroxysmal atrial flutter I48.92 Benign hypertension I10 Stage 3a chronic kidney disease N18.9 Pneumonia J18.9
[2024-10-05] MEDS: heparin 5,000 unit/mL INJ 1 mL 5000 UNIT (20:43)
[2024-10-05] MEDS: aspirin 325 mg EC Tablet (20:43)
[2024-10-05] MEDS: clopidogrel 300 mg Tablet 600 MG (20:43)
[2024-10-05 20:57] LABS: Basophils % 0.2 %; Eosinophils % 0.1 %; Hematocrit 25.3 % (36-47); Lymphocytes # 0.5 10^3/uL (0.8-4.8); Lymphocytes % 3.8 %; Mean Corpuscular HGB Conc 31.6 g/dL (30-55); Mean Corpuscular Hemoglobin 29.1 pg (27-33); Mean Platelet Volume 11.8 fL (7.4-10.4); Monocytes # 0.6 10^3/uL (0.2-0.9); Monocytes % 4.3 %; Neutrophils # 12.83 10^3/uL (1.8-7.7); Neutrophils % 91.1 %; Nucleated Red Blood Cells % 0 %; Platelet Count 208 10^3/cmm (157-399); Red Blood Count 2.75 10^6/uL (3.85-5.65); Red Cell Distribution Width 14.4 % (12.1-15.1)
[2024-10-05 21:26] LABS: Alanine Aminotransferase 8 U/L (0-33); Albumin Level 3.1 g/dL (3.5-5.2); Alkaline Phosphatase 87 U/L (35-105); Anion Gap 22.7 (5-19); Aspartate Amino Transferase 18 U/L (0-32); Blood Urea Nitrogen 44 mg/dL (8-23); Calcium 7.9 mg/dL (8.5-10.5); Carbon Dioxide 13 mmol/L (22-29); Chloride 97 mmol/L (98-107); Glucose 280 mg/dL (65-115); NT Pro B Type Natriuretic Pept 28492 pg/mL (0-450); Osmolality Calculated 289 mOsm/kg (285-295); Potassium 3.7 mmol/L (3.5-5.1); Sodium 129 mmol/L (136-145); Total Bilirubin 0.2 mg/dL (0.15-1.2); Total Protein 6.1 g/dL (6.6-8.7)
[2024-10-05 21:35] LABS: Lactic Sepsis W/Reflex 4.2 mmol/L (0.5-2.2)
[2024-10-05 21:36] LABS: Troponin(5th) Baseline 348 ng/L (0-10)
[2024-10-05 21:43] LABS: Slide Review Slide Review Perform
--- NOTE | 2024-10-05 22:10 | XRR_ITS ---
PROCEDURE INFORMATION: Exam: XR Chest Exam date and time: 10/05/2024 10:14 PM Age: 79 years old Clinical indication: Device placement; Ett placement (vent status); Ett and og tube; Additional info: Et tube placement TECHNIQUE: Imaging protocol: Radiologic exam of the chest. Views: 1 view. COMPARISON: CR (CHEST, ) 10/05/2024 8:28 PM FINDINGS: Tubes, catheters and devices: Nasogastric tube tip terminates in the distal esophagus, recommend advancing at least 10 cm for adequate positioning. The endotracheal tube tip terminates proximally 2 cm above the belem, recommend pulling back at least 1 cm. Lungs: Diffuse patchy alveolar disease with the right being worse than the left. Interval progression of disease when compared to the previous study, findings likely due to edema versus pneumonia/aspiration. Pleural spaces: No pleural effusion or pneumothorax noted. Heart/Mediastinum: There is no cardiomegaly. Bones/joints: No acute osseous abnormality. XR/XR chest 1V portable [id number] IMPRESSION: 1. Suboptimal positioning of the endotracheal tube tip which terminates approximately 2 cm above the belem, recommend pulling back at least 1 cm. 2. Suboptimal positioning of the nasogastric tube, the last hole is in the distal esophagus, recommend advancing at least 10 cm for adequate positioning. 3. Interval progression of patchy alveolar disease likely due to edema versus pneumonia/aspiration.
--- NOTE | 2024-10-05 22:10 | W.ED.SOB ---
HPI - SOB/Dyspnea General: Chief Complaint: Shortness of Breath/Dyspnea Stated Complaint: cp, sob Time Seen by Provider: 10/05/24 20:16 History of Present Illness: HPI Narrative: . Related Data Home Medications ?Medication ?Instructions ?Recorded ?Confirmed aspirin 81 mg tablet,delayed 81 mg PO QAM 05/06/20 02/25/24 release clopidogrel 75 mg tablet 75 mg PO QAM 05/06/20 02/25/24 lovastatin 40 mg tablet 40 mg PO QAM 05/06/20 02/25/24 albuterol sulfate 2.5 mg/3 mL 2.5 mg inhalation Q4H PRN copd 04/18/22 02/25/24 (0.083 %) solution for nebulization bisacodyl 10 mg rectal suppository 10 mg AK DAILY PRN Constipation 04/18/22 02/25/24 levothyroxine 88 mcg tablet 88 mcg PO QAM 04/18/22 02/25/24 magnesium hydroxide 400 mg/5 mL 30 ml PO DAILY PRN Constipation 04/18/22 02/25/24 oral suspension (Milk of Magnesia) polyethylene glycol 3350 17 17 g PO DAILY PRN Constipation 04/18/22 02/25/24 gram/dose oral powder sennosides 8.6 mg tablet (senna) 8.6 mg PO DAILY PRN Constipation 04/18/22 02/25/24 hydroxyzine HCl 10 mg tablet 10 mg PO DAILY PRN Anxiety 08/16/22 02/25/24 amlodipine 2.5 mg tablet 2.5 mg PO BID 05/07/23 02/25/24 ferrous sulfate 325 mg (65 mg 325 mg PO QAM 05/07/23 02/25/24 iron) tablet losartan 50 mg tablet 50 mg PO BID 05/07/23 02/25/24 aluminum-mag hydroxide-simethicone 30 ml PO Q4H PRN Indigestion 06/12/23 02/25/24 200 mg-200 mg-20 mg/5 mL oral susp carboxymethylcellulose sodium 1 % 2 drp ophthalmic (eye) BID 06/12/23 02/25/24 eye drops (Artificial Tears (carboxymethylcellulose)) cyanocobalamin (vitamin B-12) 500 500 mcg PO QAM 06/12/23 02/25/24 mcg tablet escitalopram oxalate 10 mg tablet 10 mg PO QAM 06/12/23 02/25/24 (Lexapro) melatonin 10 mg tablet 10 mg PO BEDTIME 06/12/23 02/25/24 naloxone 2 mg/2 mL syringe kit 2 mg IM Q3M PRN Opioid Overdose 06/12/23 02/25/24 buspirone 10 mg tablet 10 mg PO BID 09/25/23 02/25/24 acetaminophen 325 mg tablet 650 mg PO Q6H PRN Pain or temp 02/04/24 02/25/24 pantoprazole 40 mg tablet,delayed 40 mg PO DAILY 02/25/24 02/25/24 release Previous Rx's ?Medication ?Instructions ?Recorded hydralazine 100 mg tablet 100 mg PO TID #270 tabs 08/06/23 cefdinir 300 mg capsule 300 mg PO BID 7 days #14 caps 10/05/24 levofloxacin 750 mg tablet 750 mg PO Q48H 10 days #5 tabs 10/05/24 Allergies Allergy/AdvReac Type Severity Reaction Status Date / Time Penicillins Allergy ALGY-Hives Verified 10/05/24 20:36 tetracycline Allergy ALGY-Hives Verified 10/05/24 20:36 PFS ED PFSH: Medical History Bicytopenia Peripheral arterial disease with history of revascularization Bradycardia Chronic hyponatremia Exertional dyspnea COPD exacerbation Orthostatic hypotension Syncope COPD (chronic obstructive pulmonary disease) Hx of type 2 diabetes mellitus Peripheral vascular disease Hx of chest pain History of hypertension Frequent falls Hx of hyperlipidemia Chronic back pain Postmenopausal Impaired physical mobility Hx of renal calculi Smoker Chronic kidney disease (CKD) Surgical History Hx of tubal ligation Family History Grandmother Clotting disorder Brother Cancer Diabetes Stroke Son Chronic kidney disease (CKD) Mother Diabetes Father Stroke Denies family history of CAD (coronary artery disease) Dementia Suicide Anesthesia complication Bleeding disorder Lung disease Social History Smoking and tobacco/nicotine status: current some day tobacco/nicotine user Alcohol intake: never Substance/Drug Use: never Procedures Intubation Time out performed: Yes sedative: Etomidate Mg Given: 20 paralytic: Succinylcholine Mg Given: 80 Laryngoscope: Eliane ET Tube Size: 8 ET Tube Uncuffed: No Tube Secured Depth (cm): 25 Tube Secured Location: lips Tube Placement Confirmation: visualized tube passing through cords, equal breath sounds bilaterally, no breath sounds over epigastrium and confirmation by capnometry Patient Tolerated Procedure: well Intubation Complications: none Course Vital Signs: Vital signs: Vital Signs Temperature 96.7 F L 10/05/24 20:17 Pulse Rate 109 H 10/05/24 21:00 Respiratory Rate 26 H 10/05/24 21:00 Blood Pressure 114/51 10/05/24 20:35 Pulse Oximetry 95 10/05/24 21:00 Oxygen Delivery Me thod BiPAP 10/05/24 21:00 Oxygen Flow Rate 15 10/05/24 20:17 Fraction of Inspir ed Oxygen 50 10/05/24 21:00 MDM - SOB/Dyspnea Medical Decision Making Called to Senior Technical Support Analyst to intubate patient intubated her without any difficulty. Lab Data 10/05/24 20:41 10/05/24 20:41 Labs/Radiology: Radiology Impressions Chest X-Ray 10/05/24 20:16 IMPRESSION: 1. Scattered patchy opacity within the lungs, more prominent upper left lung and lower right lung, likely representing patchy edema though pneumonia/aspiration are also considerations. 2. No cardiomegaly. No significant pleural effusion. Laboratory Results WBC 14.10 10^3/uL (3.29-11.43) H 10/05/24 20:41 RBC 2.75 10^6/uL (3.85-5.65) L 10/05/24 20:41 Hgb 8.00 g/dL (11.27-16.99) L 10/05/24 20:41 Hct 25.3 % (36-47) L 10/05/24 20:41 MCV 92.0 fl (85-98) 10/05/24 20:41 MCH 29.1 pg (27-33) 10/05/24 20:41 MCHC 31.6 g/dL (30-55) 10/05/24 20:41 RDW 14.4 % (12.1-15.1) 10/05/24 20:41 Plt Count 208 10^3/cmm (157-399) 10/05/24 20:41 MPV 11.8 fL (7.4-10.4) H 10/05/24 20:41 Neut % (Auto) 91.1 % 10/05/24 20:41 Lymph % (Auto) 3.8 % 10/05/24 20:41 Harvey % (Auto) 4.3 % 10/05/24 20: Eos % (Auto) 0.1 % 10/05/24 20: Baso % (Auto) 0.2 % 10/05/24 20:41 Neut # (Auto) 12.83 10^3/uL (1.8-7.7) H 10/05/24 20:41 Lymph # (Auto) 0.5 10^3/uL (0.8-4.8) L 10/05/24 20:41 Harvey # (Auto) 0.6 10^3/uL (0.2-0.9) 10/05/24 20: Eos # (Auto) 0.0 10^3/uL (0.0-0.8) 10/05/24 20: Baso # (Auto) 0.0 10^3/uL (0.0-0.1) 10/05/24 20: Nucleated RBC % (auto) 0 % 10/05/24: Nucleated RBCs # 0.0 /100WBC 10/05/24 20:41 Sodium 129 mmol/L (136-145) L 10/05/24 20:41 Potassium 3.7 mmol/L (3.5-5.1) 10/05/24 20: Chloride 97 mmol/L (98-107) L 10/05/24 20:41 Carbon Dioxide 13 mmol/L (22-29) L 10/05/24 20:41 Anion Gap 22.7 (5-19) H 10/05/24 20:41 BUN 44 mg/dL (8-23) H 10/05/24 20:41 Creatinine 2.2 mg/dL (0.5-0.9) H 10/05/24 20:41 GFR Calculation Not Reportable 10/05/24 20: Glucose 280 mg/dL (65-115) H 10/05/24 20:41 Calculated Osmolality 289 mOsm/kg (285-295) 10/05/24 20:41 Lactic Acid 4.2 mmol/L (0.5-2.2) H* 10/05/24 20:41 Calcium 7.9 mg/dL (8.5-10.5) L 10/05/24 20:41 Total Bilirubin 0.2 mg/dL (0.15-1.2) 10/05/24 20:41 AST 18 U/L (0-32) 10/05/24 20:41 ALT 8 U/L (0-33) 10/05/24 20:41 Alkaline Phosphatase 87 U/L (35-105) 10/05/24 20:41 Troponin T Baseline 348 ng/L (0-10) H* 10/05/24 20:41 NT-Pro-B Natriuret Pep 31475 pg/mL (0-450) H 10/05/24 20:41 Total Protein 6.1 g/dL (6.6-8.7) L 10/05/24 20:41 Albumin 3.1 g/dL (3.5-5.2) L 10/05/24 20:41 Globulin 3.0 g/dL (1.3-4.6) 10/05/24 20:41 All radiology interpretation(s) finalized by discharge Discharge Plan Discharge Patient Disposition: Admitted As Inpatient Clinical Impression: ST elevation myocardial infarction (STEMI) Condition: Stable Coding Level of Care Code ED Tile Molder for John Paul Jones
--- NOTE | 2024-10-05 22:12 | PM.PROC ---
Procedure Note: Date of procedure: 10/05/24 Pre-procedure diagnosis: NSTEMI/ Acute respiratory failure/ Acute pulmonary edema Post-procedure diagnosis: other (Critical ostial LAD stenosis status post successful revascularization of left main into proximal LAD with 2 stents) Procedure: Critical, ostial LAD stenosis with haziness status post successful revascularization of left main into proximal LAD with 2 stents. Patient was on BiPAP during the procedure. By end of procedure, her shortness of breath was worsening. ER attending, Dr. Chahal was called for intubation. Patient was intubated prior to transfer to ICU. Patient's family updated about the procedure and intubation. Dual antiplatelet therapy with aspirin and Plavix Vent management and treatment of penumonia/ UTI per medicine team Performing Provider: Chaz Stein Estimated blood loss (mL): 10 Complications: None Condition: critical Disposition: ICU Coding Level of Care Code Acute Code for John Paul Jones
--- NOTE | 2024-10-05 22:16 | ECG_ITS ---
[facility]: 2024-10-05 Pat Name: Maria Isabel Ho Department: Room: [facility] Gender: Female Rug Inspector: : 1945 Requested By: Indu Shay Order Number: [id number] Bibiana MD: Gris Hughes M.D. Measurements Intervals Iraan Rate: 104 P: 47 CT: 120 QRS: 28 QRSD: 72 T: 97 QT: 338 QTc: 446 Interpretive Statements SINUS TACHYCARDIA WITH OCCASIONAL SUPRAVENTRICULAR PREMATURE COMPLEXES POSSIBLE LEFT ATRIAL ENLARGEMENT [-0.1mV P-WAVE IN V1/V2] LEFT VENTRICULAR HYPERTROPHY AND ST-T CHANGE [VOLTAGE CRITERIA PLUS ST/T ABNORMALITY] Compared to ECG 10/05/2024 20:12:23 No significant changes Electronically Signed On 10-07-2024 06:26:24 CDT by Gris Hughes M.D. [email or web address]
[2024-10-05] MEDS: fentaNYL 1,000 MCG/100 ML BAG 2.5 MCG IV (22:30)
[2024-10-05] MEDS: propofol 1,000 MG/100 ML INJ 1.63 MG IV (22:30)
[2024-10-05 22:40] LABS: Reflex Lactate Order REFLEX LACTIC ORDERD
[2024-10-05 22:48] LABS: ABG PCO2 33.9 mmHg (35-45); Arterial Blood Gas Hematocrit 26.4 % (37-47); Base Excess ABG -14.5 mmol/L (-2.0-2.0); Blood Gas Allen Test Pos; Blood Gas Operator Identificat gerca; Blood Gas Sample Site Not specified; Blood Gas Sample Type Arterial; Carboxyhemoglobin 0.7 %THgb (0.4-20.1); HCO3 ABG 12.7 mmol/L (22-26); HGB O2 Sat 90.8 % (95-100); Ionized Calcium Level - ABG 1.1 mmol/L (1.1-1.4); Methemoglobin 0.2 % (0.4-1.5); Oxygen Saturation ABG 91.7; PO2 ABG 79.6 mmHg (80.0-100.0); Potassium Level - ABG 3.6 mmol/L (3.5-5.0); Total Hemoglobin 8.6 g/dL (12-16)
[2024-10-05 22:50] LABS: Alveolar-Arterial Oxygen Gradi 76.1 mmHg (5-10); Oxygen Device VENT; PO2 FiO2 Ratio Arterial Blood 79
[2024-10-05 22:53] LABS: ABG PH Result 7.18 (7.35-7.45)
--- NOTE | 2024-10-05 23:03 | PC.NURSE ---
Intubation Due to quickly lowering O2 sats and increased crackles, pt emergently intubated in CCL. 2203 - HR 111 bpm, 137/82, 89% 2205 - Medications administered: Etomidate 20 mg administered, Succinylcholine 80 mg HR 95, 93% Intubated @ 2207 w/ Size 8 ETT, 24 @ gums, + color change
[2024-10-05] MEDS: norepinephrine 4 MG/250 ML BAG 30 MG IV (23:09)
[2024-10-05] MEDS: sodium bicarbonate 8.4% 1 mEq/mL 50mL Syr 50 MEQ IVP (23:13)
[2024-10-05] MEDS: sodium bicarbonate 150 MEQ in dextrose 5% 1,000 ML 200 MEQ IV (23:17)
[2024-10-05] MEDS: dextrose 5% 1,000 ML 200 ML (23:25)
[2024-10-06] VITALS (107 sets, daily range): BP systolic 73–191; BP diastolic 38–73; PULSE 78–96; RESP 14–19; TEMP 36.4–37.7; O2SAT 92–100
[2024-10-06] MEDS: cefepime 1,000 mg SDV 1000 MG IVP
[2024-10-06] MEDS: linezolid premix 600 MG/300 ML PREMIX 300 MG IV ×2 (00:01→12:04)
--- NOTE | 2024-10-06 00:04 | PM.CONSULT ---
Providers/Reason For Consult Consulting Physician/Specialty*: Cardiology , Dr Chaz Stein M.D Reason for Consult*: Medical management of urinary tract infection and pneumonia Requesting Physician: Hospitalist?Dr. Ace Attending Physician: Chaz Stein M.D Primary Care Provider: Aakash Estrella MD History of Present Illness History of Present Illness Maria Isabel Ho is a 79 year old female, in prison resident, who presented to the ED because of shortness of breath with elevated troponin diagnosed with UTI and pneumonia patient was given antibiotics and sent back to prison to continue care. Patient was then found to be more short of breath and was presented to the emergency room and was taken to Email Manager with finding of much coronary disease after obtaining EKG that showed LAD disease. Patient ended up having 2 stents to LAD and 2 stents to the main coronary artery. Patient had to be intubated after the family had reversed the DNR to go through the procedure. Postoperatively patient is requiring inpatient care in ICU. Cardiology service at the primary team and because patient will need medical management Dr. Stein consulted hospitalist for medical management of UTI and pneumonia. Patient had been seen by me in ICU and had been pancultured from blood and urine and all other supportive indicators added such as lactate. Patient found intubated breathing at 35 rate per minute looking very cardona and mottled. ABG immediately obtained showed a pH of 7.1 and a bicarb of 12. Patient is in very severe metabolic acidosis. At bedside an amp of bicarb was pushed and a drip of 3 A of bicarb in a D5 and water was added and to run at 200 an hour x 1 L on the. Within 15 minutes of initiation of bicarb and bicarb drip patient called came back and the mottling of the skin return to normal color patient breathing at a rate of 30s now coming down to the high 20s the blood pressure that was hypotensive in the arterial line in the 80s now, up to be above 100. I have at this time proceeded to treat patient pneumonia and UTI. Patient is in renal failure that had been chronic last creatinine was 2.1 I choose medication to stay renal friendly the antibiotics was cefepime 1 g Q8 IV and also Zyvox 600 mg IV twice daily. Patient blood pressure was in the low side in the 80s on the arterial line upon arriving to ICU I initiated Levophed and hopeful that once acidosis is optimized patient will get good blood pressure and we will be tapering off the Levophed. Can you use the peripheral line for the Levophed at this time I do not anticipate patient being on Levophed beyond 6 hours. Review of Systems Narrative: System review upon 10 organ review with noted to be okay except for cardiac/pulmonary system and renal system with failure. Medications/Allergies Home Medications ?Medication ?Instructions ?Recorded ?Confirmed ?Last Taken ?Type aspirin 81 mg tablet,delayed 81 mg PO QAM 05/06/20 02/25/24 02/29/24 History release clopidogrel 75 mg tablet 75 mg PO QAM 05/06/20 02/25/24 02/25/24 History lovastatin 40 mg tablet 40 mg PO QAM 05/06/20 02/25/24 02/25/24 History albuterol sulfate 2.5 mg/3 mL 2.5 mg inhalation Q4H PRN copd 04/18/22 02/25/24 Unknown History (0.083 %) solution for nebulization bisacodyl 10 mg rectal suppository 10 mg PA DAILY PRN Constipation 04/18/22 02/25/24 Unknown History levothyroxine 88 mcg tablet 88 mcg PO QAM 04/18/22 02/25/24 02/29/24 History magnesium hydroxide 400 mg/5 mL 30 ml PO DAILY PRN Constipation 04/18/22 02/25/24 Unknown History oral suspension (Milk of Magnesia) polyethylene glycol 3350 17 17 g PO DAILY PRN Constipation 04/18/22 02/25/24 Unknown History gram/dose oral powder sennosides 8.6 mg tablet (senna) 8.6 mg PO DAILY PRN Constipation 04/18/22 02/25/24 Unknown History hydroxyzine HCl 10 mg tablet 10 mg PO DAILY PRN Anxiety 08/16/22 02/25/24 06/11/23 History amlodipine 2.5 mg tablet 2.5 mg PO BID 05/07/23 02/25/24 03/01/24 History ferrous sulfate 325 mg (65 mg 325 mg PO QAM 05/07/23 02/25/24 02/29/24 History iron) tablet losartan 50 mg tablet 50 mg PO BID 05/07/23 02/25/24 02/29/24 History aluminum-mag hydroxide-simethicone 30 ml PO Q4H PRN Indigestion 06/12/23 02/25/24 Unknown History 200 mg-200 mg-20 mg/5 mL oral susp carboxymethylcellulose sodium 1 % 2 drp ophthalmic (eye) BID 06/12/23 02/25/24 02/29/24 History eye drops (Artificial Tears (carboxymethylcellulose)) cyanocobalamin (vitamin B-12) 500 500 mcg PO QAM 06/12/23 02/25/24 02/29/24 History mcg tablet escitalopram oxalate 10 mg tablet 10 mg PO QAM 06/12/23 02/25/24 02/29/24 History (Lexapro) melatonin 10 mg tablet 10 mg PO BEDTIME 06/12/23 02/25/24 02/29/24 History naloxone 2 mg/2 mL syringe kit 2 mg IM Q3M PRN Opioid Overdose 06/12/23 02/25/24 Unknown History hydralazine 100 mg tablet 100 mg PO TID #270 tabs 08/06/23 02/25/24 02/29/24 Rx buspirone 10 mg tablet 10 mg PO BID 09/25/23 02/25/24 02/29/24 History acetaminophen 325 mg tablet 650 mg PO Q6H PRN Pain or temp 02/04/24 02/25/24 02/29/24 History pantoprazole 40 mg tablet,delayed 40 mg PO DAILY 02/25/24 02/25/24 02/29/24 History release cefdinir 300 mg capsule 300 mg PO BID 7 days #14 caps 10/05/24 Unknown Rx levofloxacin 750 mg tablet 750 mg PO Q48H 10 days #5 tabs 10/05/24 Unknown Rx Allergies Allergy/AdvReac Type Severity Reaction Status Date / Time Penicillins Allergy ALGY-Hives Verified 10/05/24 20:36 tetracycline Allergy ALGY-Hives Verified 10/05/24 20:36 Current Medications Generic Name Dose Route Start Last Admin Trade Name Freq PRN Reason Stop Dose Admin Cefepime HCl 1,000 mg 10/06/24 00:00 10/06/24 00:00 Cefepime 1,000 Mg Sdv IVP 1,000 mg Q24H TABATHA Administration Protocol Fentanyl 1,000 mcg in 100 mls @ 0 mls/hr 10/05/24 22:30 10/05/24 23:23 Sublimaze IV 125 mcg/hr .Q0M TABATHA 12.5 mls/hr Protocol Titration Per Protocol Propofol 1,000 mg in 100 mls @ 0 mls/hr 10/05/24 22:30 10/06/24 00:00 Diprivan IV 25 mcg/kg/min .Q0M TABATHA 8.17 mls/hr Protocol Titration Per Protocol Norepinephrine Bitartrate 4 mg in 250 mls @ 0 mls/hr 10/05/24 23:15 10/05/24 23:09 Levophed IV 8 mcg/min .Q0M TABATHA 30 mls/hr Protocol Administration Per Protocol Sodium Bicarbonate 150 meq/ 1,150 mls @ 200 mls/hr 10/05/24 23:04 10/05/24 23:17 Dextrose IV 10/06/24 04:48 200 mls/hr .Q5H45M ONE Administration Linezolid 600 mg in 300 mls @ 300 mls/hr 10/06/24 00:00 10/06/24 00:01 Zyvox Premix IV 300 mls/hr Q12H TABATHA Administration Protocol PFSH Acute PFSH: Medical History Bicytopenia Peripheral arterial disease with history of revascularization Bradycardia Chronic hyponatremia Exertional dyspnea COPD exacerbation Orthostatic hypotension Syncope COPD (chronic obstructive pulmonary disease) Hx of type 2 diabetes mellitus Peripheral vascular disease Hx of chest pain History of hypertension Frequent falls Hx of hyperlipidemia Chronic back pain Postmenopausal Impaired physical mobility Hx of renal calculi Smoker Chronic kidney disease (CKD) Surgical History Hx of tubal ligation Family History Grandmother Clotting disorder Brother Cancer Diabetes Stroke Son Chronic kidney disease (CKD) Mother Diabetes Father Stroke Denies family history of CAD (coronary artery disease) Dementia Suicide Anesthesia complication Bleeding disorder Lung disease Social History Smoking and tobacco/nicotine status: current some day tobacco/nicotine user Alcohol intake: never Substance/Drug Use: never Vitals/I&O/Wt Last Vital Signs Temp 97.5 F L 10/05/24 23:20 Pulse 92 10/05/24 23:20 Resp 32 H 10/05/24 22:35 BP 139/54 10/05/24 23:20 Pulse Ox 96 10/05/24 23:20 O2 Del Method Mechanical Ventilation 10/05/24 23:24 O2 Flow Rate 15 10/05/24 20:17 FiO2 100 10/05/24 23:20 10/05/24 10/05/24 10/06/24 14:59 22:59 06:59 Intake Total 1.950 / 1.950 11.767 / 13.717 Balance 1.950 / 1.950 11.767 / 13.717 Weight last 48 hrs Weight 51.5 kg Weight 54.431 kg Weight 56.699 kg Physical Exam Narrative: Generally patient skin had been grayish with mottling with a pH of 7.1 and a bicarb of 12 HEENT normocephalic/atraumatic neck neck is supple cardiovascular heart rate is regular lungs are with coarse breath sounds there is upper airway transmission with gurgling abdomen is soft nontender nondistended unremarkable extremities are intact no edema has good pulses neurology assessment is limited because patient is intubated and sedated. Data 10/05/24 20:41 10/05/24 20:41 Micro: Microbiology 10/05/24 23:42 Blood Culture - Preliminary Blood SPECIMEN COLLECTED 10/05/24 20:41 Blood Culture - Preliminary Blood SPECIMEN COLLECTED A&P Assessment and plan (1) Pneumonia: Pneumonia of healthcare associated?patient from prison - Next of breath with respiratory failure is multifactorial) pneumonia and coronary artery disease - Panculture from blood and urine - Will treat the pneumonia with cefepime to cover the gram-negative and Zyvox to cover MRSA and Vanco - resistant organisms, patient is a prison resident Zyvox its renal friendly - Initiate nebulizing treatment - Continue airway intubation at this time till acidosis is resolved (2) UTI (urinary tract infection): UTI - Patient on antibiotics for pneumonia and this will be able to optimize UTI - Continue antibiotics - Follow culture and sensitivity and optimize accordingly (3) Weakness: Weakness and debility - Bedside PT OT - PT OT consulted to assess and treat (4) Lactic acidosis: Lactic acidosis is significant for tissue injury not of infection Continue to optimize and monitor interval changes (5) Metabolic acidosis: Continue to neutralized the acidosis from tissue injury Bicarb drip x 1 L and reassess (6) Unstable angina: Primary team taking care of this Patient had 2 stent placement in in the main coronary artery Patient was status post 2 stent placement in LAD distribution (7) Peripheral arterial disease with history of revascularization: Patient is with known PVD and had been status post revascularization in the past Continue antiplatelet (8) Respiratory failure: Continue vent management for now Plan GI and DVT prophylaxis in place PDMP PDMP Reviewed: Last Reviewed 10/06/24 00:37 by Peg Ace MD Consult Attestations Medical Necessity Statement: I attest as a outside sales consultant for medical management that this patient who is intubated and respiratory failure with metabolic acidosis pneumonia urinary tract infection hypotension requiring Levophed indeed does need a minimum of 2 midnights in the hospital for care Coding Level of Care Code 75324 Diagnoses Pneumonia J18.9 UTI (urinary tract infection) N39.0 Weakness R53.1 Lactic acidosis E87.20 Metabolic acidosis E87.20 Unstable angina I20.0 Peripheral arterial disease with history of revascularization I73.9; Z98.890 Respiratory failure J96.90 Time Spent (min) 60
[2024-10-06 00:19] LABS: Troponin 5 2HR 518.7 ng/L (0-10); Troponin 5 2HR Delta 170.7 ABS# (0-10)
[2024-10-06 00:34] LABS: ABG PCO2 35.8 mmHg (35-45); ABG PH Result 7.28 (7.35-7.45); Alveolar-Arterial Oxygen Gradi 76.4 mmHg (5-10); Arterial Blood Gas Hematocrit 23.8 % (37-47); Blood Gas Operator Identificat JDB; Blood Gas Sample Site Not specified; Blood Gas Sample Type Arterial; Carboxyhemoglobin 0.8 %THgb (0.4-20.1); HCO3 ABG 16.9 mmol/L (22-26); HGB O2 Sat 91.9 % (95-100); Methemoglobin 0.3 % (0.4-1.5); Oxygen Device VENT; Oxygen Saturation ABG 92.9; PO2 FiO2 Ratio Arterial Blood 75; Potassium Level - ABG 3.6 mmol/L (3.5-5.0); Total Hemoglobin 7.8 g/dL (12-16)
--- NOTE | 2024-10-06 02:16 | ECG_ITS ---
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 Measurements Intervals [place] Rate: 89 P: 64 [place]: 131 QRS: 25 QRSD: 70 T: 151 QT: 387 QTc: 472 Interpretive Statements SINUS RHYTHM LEFT VENTRICULAR HYPERTROPHY AND ST-T CHANGE [VOLTAGE CRITERIA PLUS ST/T ABNORMALITY] Anterolateral wall T wave changes may suggest ischemia Compared to ECG 10/05/2024 22:33:17 Sinus tachycardia no longer present ST (T wave) deviation still present Electronically Signed On 10-07-2024 06:25:56 CDT by Gris Hughes M.D. [id number]
[2024-10-06 03:20] LABS: Basophils # 0.1 10^3/uL (0.0-0.1); Basophils % 0.3 %; Hematocrit 24.2 % (36-47); Lymphocytes # 0.5 10^3/uL (0.8-4.8); Lymphocytes % 2.9 %; Mean Corpuscular HGB Conc 32.2 g/dL (30-55); Mean Platelet Volume 11.6 fL (7.4-10.4); Monocytes # 0.6 10^3/uL (0.2-0.9); Monocytes % 3.3 %; Neutrophils # 15.98 10^3/uL (1.8-7.7); Neutrophils % 93.2 %; Nucleated Red Blood Cells % 0 %; Platelet Count 232 10^3/cmm (157-399); Red Blood Count 2.69 10^6/uL (3.85-5.65); Red Cell Distribution Width 14.2 % (12.1-15.1); White Blood Count 17.16 10^3/uL (3.29-11.43)
[2024-10-06 03:44] LABS: Troponin 5 6HR 605.6 ng/L (0-10)
[2024-10-06 03:45] LABS: Troponin 5 6HR Delta 257.6 ng/L (0-12)
[2024-10-06 04:14] LABS: Anion Gap 21.8 (5-19); Blood Urea Nitrogen 43 mg/dL (8-23); Calcium 7.4 mg/dL (8.5-10.5); Carbon Dioxide 19 mmol/L (22-29); Chloride 93 mmol/L (98-107); Glucose 181 mg/dL (65-115); Osmolality Calculated 285 mOsm/kg (285-295); Potassium 3.8 mmol/L (3.5-5.1); Sodium 130 mmol/L (136-145)
[2024-10-06 04:22] LABS: Slide Review Slide Review Perform
[2024-10-06] MEDS: norepinephrine 4 MG/250 ML BAG 52.5 MG IV (04:30)
[2024-10-06] MEDS: propofol 1,000 MG/100 ML INJ 8.17 MG IV ×2 (05:22→12:44)
[2024-10-06] MEDS: fentaNYL 1,000 MCG/100 ML BAG 12.5 MCG IV ×3 (05:23→20:14)
--- NOTE | 2024-10-06 07:25 | XR_ITS ---
WS: [id number] Portable AP upright chest, 10/06/2024 Clinical Data: check et tube placement Comparison: Portable chest, 10/05/2024 Findings: The endotracheal tube now ends 3.2 cm above the belem. There are diffuse patchy opacities throughout both lungs has diminished slightly. The nasogastric tube has doubled back on itself and the tip ends in the distal esophagus. The aortic arch and descending thoracic aorta show calcification and tortuosity. Monitor leads are on the chest wall. XR/XR chest 1V portable [id number] Impression: 1. Endotracheal tube above the belem. 2. Nasogastric tube has curled in the fundus of the stomach and the tip ends in the distal esophagus. 3. Slight decrease in bilateral pulmonary opacities.
--- NOTE | 2024-10-06 08:24 | PC.PHAR ---
Pt is from [facility] 10/06/24 8:24am
--- NOTE | 2024-10-06 08:33 | PC.NURSE ---
0834 70mg of succ given, patient already sedated with prior gtts, see MAR. RT and Dr Harrison bedside doing an ET exchange due to deflated cuff. Glidascope used by Christy, size 8.0 ET tube, 23 @ lip. Xray ordered to verify placement.
--- NOTE | 2024-10-06 08:37 | XRR_ITS ---
PROCEDURE INFORMATION: Exam: XR Chest Exam date and time: 10/06/2024 8:44 AM Age: 79 years old Clinical indication: Device placement; Ett placement (vent status); Additional info: Et exchange TECHNIQUE: Imaging protocol: Radiologic exam of the chest. Views: 1 view. COMPARISON: 1. CT chest wo con [id number] 10/05/2024 4:13 AM 2. CR XR chest 1V portable [id number] 10/06/2024 7:28 AM 3. CR (CHEST, ) 10/05/2024 10:14 PM FINDINGS: Tubes, catheters and devices: Endotracheal tube terminates approximately 2 cm proximal to the belem. Enteric tube loops upon itself over the proximal stomach, tip just proximal to the level of the GE junction similar to prior. Lungs: Diffuse patchy bilateral pulmonary opacities are not significantly changed. Pleural spaces: No pleural effusion. No pneumothorax. Heart/Mediastinum: Cardiomediastinal silhouette is normal. Mitral annular calcifications. Aortic calcifications. Bones/joints: No acute abnormality. XR/XR chest 1V portable [id number] IMPRESSION: 1. Endotracheal tube terminates approximately 2 cm proximal to the belem. Enteric tube loops upon itself over the proximal stomach, tip just proximal to the level of the GE junction similar to prior. Patient with known hiatal hernia, enteric tube tip could potentially be within the herniated portion of the stomach versus distal esophagus. 2. Bilateral pulmonary opacities are not significantly changed, suggest pneumonia and/or pulmonary edema.
[2024-10-06] MEDS: succinylcholine 20 mg/mL SDV 10mL 70 MG IVP (08:54)
--- NOTE | 2024-10-06 09:01 | P.PNCC_ITS ---
Critical Care Event Note Consulted by ICU staff and [employer]. Patient is intubated on ventilator she has developed a cough leak on the ET tube they asked that we replace her ET tube. She is already on a propofol drip and while sedated she was given 70 mg of succinylcholine after waiting approximately 30 to 40 seconds that she had the ET tube was removed and replaced with an ET tube at 23 cm at the lip 8.0 ET tube cuff inflated no complications. Critical Care Time Code activated: No Critical Care Time (min): 0 Procedures Intubation Time out performed: Yes Sedative: other (Patient currently on a propofol drip) Paralytic: succinylcholine Mg given: 70 Assist device used: fiber optic device ET tube size: 8 ET tube uncuffed: No Tube secured depth (cm): 23 Tube secured location: lips Tube placement confirmation: visualized tube passing through cords, equal breath sounds bilaterally and no breath sounds over epigastrium Patient tolerated procedure: well Intubation complications: none Coding Level of Care Code Acute Code for Chg Fwshayan
[2024-10-06] MEDS: clopidogrel 75 mg Tablet PO (09:43)
[2024-10-06] MEDS: aspirin 81 mg EC Tablet PO (09:43)
[2024-10-06 09:47] LABS: ABG PCO2 31.6 mmHg (35-45); Arterial Blood Gas Hematocrit 25.8 % (37-47); Base Excess ABG 1.4 mmol/L (-2.0-2.0); Blood Gas Operator Identificat GD; Blood Gas Sample Site Not specified; Blood Gas Sample Type Arterial; HCO3 ABG 24.5 mmol/L (22-26); Oxygen Device VENT; PO2 FiO2 Ratio Arterial Blood 275
--- NOTE | 2024-10-06 10:15 | PC.NURSE ---
Dr. Griffin came to bedside and placed minx device
[2024-10-06 10:35] LABS: Lactate (Lactic Acid level) 2.5 mmol/L (0.5-2.2)
[2024-10-06 10:36] LABS: Blood Urea Nitrogen 41 mg/dL (8-23); Calcium 6.9 mg/dL (8.5-10.5); Carbon Dioxide 20 mmol/L (22-29); Chloride 90 mmol/L (98-107); Glucose 92 mg/dL (65-115); Osmolality Calculated 272 mOsm/kg (285-295); Sodium 126 mmol/L (136-145)
[2024-10-06] MEDS: norepinephrine 4 MG/250 ML BAG 22.5 MG IV (10:38)
[2024-10-06 10:41] LABS: Anion Gap 19.5 (5-19); Potassium 3.5 mmol/L (3.5-5.1)
[2024-10-06 11:49] LABS: Hematocrit 20.8 % (36-47)
--- NOTE | 2024-10-06 11:52 | PC.NURSE ---
this am Dr. Valadez at bedside, gave order for 2 units prbc and check h&h between units
--- NOTE | 2024-10-06 12:51 | PM.PN ---
Subjective Subjective: She had cuff leak and was extubated and reintubated this morning. She remains on 100% FiO2 via the vent. She is also on Levophed. She was admitted for STEMI yesterday and had 2 stents placed in the LAD. Hemoglobin this morning was 7.8. Vitals/I&O/Wt Last Vital Signs Temp 97.6 F 10/06/24 04:00 Pulse 87 10/06/24 11:48 Resp 16 10/06/24 11:43 BP 110/48 10/06/24 11:48 Pulse Ox 95 10/06/24 11:48 O2 Del Method Mechanical Ventilation 10/05/24 23:24 O2 Flow Rate 15 10/05/24 20:17 FiO2 40 10/06/24 11:43 10/05/24 10/06/24 10/06/24 22:59 06:59 14:59 Intake Total 1.950 / 1.950 755.273 / 757.223 343.061 / 343.061 Output Total 500 / 500 Balance 1.950 / 1.950 255.273 / 257.223 343.061 / 343.061 Weight last 48 hrs Weight 53 kg Weight 51.5 kg Weight 54.431 kg Weight 56.699 kg Physical Exam Const: GENERAL APPEARANCE: patient mechanically ventilated and other (Sedated) HENMT: COMMON NORMALS: normocephalic, atraumatic and moist oral mucous membranes HEAD & SCALP: normocephalic and atraumatic OTHER: Intubated Eye: COMMON NORMALS: conjunctivae normal CONJUNCTIVA: Yes conjunctivae normal Neck/C-Spine: COMMON NORMALS: supple and no JVD Chest: COMMONS NORMALS: normal inspection of the chest Resp: EFFORT & INSPECTION: Yes symmetric chest movement AUSCULTATION: rhonchi Cardio: COMMON NORMALS: no JVD, regular rate, regular rhythm and No murmurs present (Cardio) RATE: regular rate RHYTHM: regular rhythm GI: COMMON NORMALS: Normal to inspection, nondistended, normoactive bowel sounds present : COMMON NORMALS: Yes no CVA tenderness BLADDER/KIDNEY EXAM: Yes no CVA tenderness Back/Pelvis: COMMON NORMALS: no CVA tenderness Extremity: COMMON NORMALS: normal to inspection and no pedal edema Neuro: OTHER: On continuous sedation Skin: COMMON NORMALS: no rashes or lesions noted GENERAL SKIN EXAM: no rashes or lesions noted Data 10/06/24 10:48 10/06/24 10:12 Micro: Microbiology 10/05/24 23:42 Blood Culture - Preliminary Blood SPECIMEN COLLECTED 10/05/24 20:41 Blood Culture - Preliminary Blood SPECIMEN COLLECTED A&P Assessment and plan (1) Pneumonia: Pneumonia of healthcare associated[place]patient from [place] [facility] - Next of breath with respiratory failure is multifactorial) pneumonia and coronary artery disease - Panculture from blood and urine - Will treat the pneumonia with cefepime to cover the gram-negative and Zyvox to cover MRSA and Vanco - resistant organisms, patient is a [place] [facility] resident Zyvox its renal friendly - Initiate nebulizing treatment - Continue airway intubation at this time till acidosis is resolved (2) UTI (urinary tract infection): UTI - Patient on antibiotics for pneumonia and this will be able to optimize UTI - Continue antibiotics - Follow culture and sensitivity and optimize accordingly (3) Weakness: Weakness and debility - Bedside PT OT - PT OT consulted to assess and treat (4) Lactic acidosis: Lactic acidosis is significant for tissue injury not of infection Continue to optimize and monitor interval changes (5) Metabolic acidosis: Continue to neutralized the acidosis from tissue injury Bicarb drip x 1 L and reassess (6) Unstable angina: Primary team taking care of this Patient had 2 stent placement in in the main coronary artery Patient was status post 2 stent placement in LAD distribution (7) Peripheral arterial disease with history of revascularization: Patient is with known PVD and had been status post revascularization in the past Continue antiplatelet (8) Respiratory failure: Continue vent management for now Plan Septic shock secondary to UTI and pneumonia ? SIRS: Leukocytosis, lactic acid, hypotension, hypoxia ? Continue linezolid and cefepime ? On Levophed ? Follow-up blood and urine cultures Acute hypoxic and hypercapnic respiratory failure ? Secondary to bilateral pneumonia ? Mechanically ventilated ? Wean FiO2 as tolerated ? Monitor O2 sats NSTEMI ? Critical ostial LAD stenosis status post stents x 2 to the proximal LAD ? Continue aspirin and Plavix Metabolic acidosis ? Resolved with sodium bicarb GI and DVT prophylaxis in place PDMP PDMP Reviewed: Not Reviewed Attestations Medical Necessity Statement*: Patient requires continued ICU hospitalization. She is mechanically ventilated, on IV pressors and IV antibiotics. Critical Care Time: Total critical care time spent equals 30 minutes. This includes [id number] evaluation, chart review, formulation of plan, and discussion of plan with nursing staff. Systems infected include cardiac, pulmonary, and metabolic, Coding Level of Care Code Critical Care >/= 30 minutes Diagnoses Pneumonia J18.9 UTI (urinary tract infection) N39.0 Weakness R53.1 Lactic acidosis E87.20 Metabolic acidosis E87.20 Unstable angina I20.0 Peripheral arterial disease with history of revascularization I73.9; Z98.890 Respiratory failure J96.90
--- NOTE | 2024-10-06 12:55 | XR_ITS ---
WS: [id number] Portable AP semiupright chest, 10/06/2024, 1300 hours Clinical Data: drop in o2 sat Comparison: Portable chest, 10/06/2024, 0847 hours Findings: The endotracheal tube and nasogastric tube remain in same position. The bilateral pulmonary opacities have not changed. No pneumothorax is seen. The heart remains the same. The aortic arch shows calcification and tortuosity. There are monitor leads on the chest wall. XR/XR chest 1V portable [id number] Impression: 1. No change in position of endotracheal tube and nasogastric tube. 2. No change at bilateral pulmonary opacities.
--- NOTE | 2024-10-06 12:58 | ECG_ITS ---
[facility] Date: 2024-10[facility]06 Pat Name: Maria Isabel Ho Department: Room: [facility] Gender: Female Digital Sales Assistant: : 1945 Requested By: Chaz Stein Order Number: [id number] Bibiana MD: Gris Hughes M.D. Measurements Intervals [place] Rate: 87 P: 70 VA: 141 QRS: 52 QRSD: 68 T: 200 QT: 406 QTc: 489 Interpretive Statements SINUS RHYTHM WITH OCCASIONAL SUPRAVENTRICULAR PREMATURE COMPLEXES POSSIBLE LEFT ATRIAL ENLARGEMENT [-0.1mV P-WAVE IN V1/V2] ST DEVIATION AND MARKED T-WAVE ABNORMALITY, CONSIDER ANTEROLATERAL ISCHEMIA [-0.5+ mV T-WAVE IN I/aVL/V3-V6] ST DEVIATION AND MODERATE T-WAVE ABNORMALITY, CONSIDER INFERIOR ISCHEMIA [-0.1+ mV T-WAVE IN II/aVF] INTERPRETATION BASED ON A DEFAULT AGE OF 40 YEARS Compared to ECG 10/06/2024 02:50:09 T-wave abnormality now present Possible ischemia now present Left ventricular hypertrophy no longer present ST (T wave) deviation no longer present Electronically Signed On 10-07-2024 06:02:56 CDT by Gris Hughes M.D. [id number]
--- NOTE | 2024-10-06 13:09 | PC.NURSE ---
O2 dropped to 60s, RT increased fio2 to 100% o2 95 on 100%, cxr and ekg performed, Dr. Stein updated advised to call hospitalist once cxr result is in
[2024-10-06 15:21] LABS: ABG PCO2 32.9 mmHg (35-45); ABG PH Result 7.44 (7.35-7.45); Alveolar-Arterial Oxygen Gradi 56.5 mmHg (5-10); Arterial Blood Gas Hematocrit 24.3 % (37-47); Base Excess ABG -1.3 mmol/L (-2.0-2.0); Blood Gas Operator Identificat GD; Blood Gas Sample Site Brachial, left; Blood Gas Sample Type Arterial; Carboxyhemoglobin 0.6 %THgb (0.4-20.1); HCO3 ABG 22.5 mmol/L (22-26); HGB O2 Sat 94.5 % (95-100); Methemoglobin 1.8 % (0.4-1.5); Oxygen Device VENT; Oxygen Saturation ABG 96.8; PO2 ABG 89.3 mmHg (80.0-100.0); PO2 FiO2 Ratio Arterial Blood 111; Potassium Level - ABG 3.5 mmol/L (3.5-5.0); Total Hemoglobin 7.9 g/dL (12-16)
[2024-10-06] MEDS: propofol 1,000 MG/100 ML INJ 19.6 MG IV (16:14)
[2024-10-06] MEDS: norepinephrine 4 MG/250 ML BAG 30 MG IV (18:23)
[2024-10-06] MEDS: propofol 1,000 MG/100 ML INJ 16.33 MG IV (20:30)
--- NOTE | 2024-10-06 22:21 | USCV_ITS ---
Maria Isabel Ho Age: 79 Gender: F : 1945 Exam Date: 10/06/2024 00:49 Ordering Phys: Chaz Stein M.D ([email or web address]) Technologist: ROMINA [place] [facility] [place]: NSTEMI, acute respiratory failure BP: 110 / 58 HR: 82 Rhythm: Sinus Technical Quality: Adequate MEASUREMENTS (Male / Female) Normal Values 2D ECHO LV Diastolic Diameter PLAX 4.6 cm 4.2 - 5.9 / 3.9 - 5.3 cm IVS Diastolic Thickness 1.0 cm 0.6 - 1.0 / 0.6 - 0.9 cm IVS Systolic Thickness 1.2 cm LVPW Diastolic Thickness 1.0 cm 0.6 - 1.0 / 0.6 - 0.9 cm LVPW Systolic Thickness 1.7 cm LVOT Diameter 1.6 cm LV Ejection Fraction 2D Teich 75.1 % LV Ejection Fraction MOD 4C 55.4 % LV Ejection Fraction MOD 2C 45.8 % LV Ejection Fraction 2C AL 49.0 % LA Diameter 2.7 cm Aorta at Sinotubular Diameter 1.7 cm IVC Diameter 1.1 cm M-MODE LA Ao Ratio MM 1.4 AV Cusp Separation MM 1.6 cm DOPPLER AV Peak Velocity 155.0 cm/s LVOT Peak Velocity 129.0 cm/s AV Area Cont Eq vti 1.8 cm squared AV Area Cont Eq pk 1.6 cm squared MV Peak Velocity 191.0 cm/s MV Area PHT 3.7 cm squared Mitral E to A Ratio 0.9 TV Peak Velocity 276.7 cm/s TR Peak Velocity 312.0 cm/s TR Peak Gradient 38.9 mmHg TV Peak E Velocity 67.0 cm/s PV Peak Velocity 158.0 cm/s FINDINGS Left Ventricle Left ventricle is normal in size. LV systolic function is mildly reduced with EF of 45-50%. Mild global hypokinesis. Grade 1 diastolic dysfunction Right Ventricle Normal in size and function Right Atrium Normal in size Left Atrium Normal in size Mitral Valve Moderate mitral annular calcification. Mild mitral regurgitation Aortic Valve Aortic valve is thickened. No significant stenosis or regurgitation Tricuspid Valve Mild tricuspid regurgitation. RVSP is 35-40 mmHg. This is consistent with mild pulmonary hypertension. Pulmonic Valve Not well visualized Pericardium Normal Aorta Normal in size IVC Appears to be normal CONCLUSIONS LV systolic function is mildly reduced with EF of 45-50% Grade 1 diastolic dysfunction. Mild mitral regurgitation Mild tricuspid regurgitation Mild pulmonary hypertension Chaz Stein MD (Electronically Signed) Final Date: 07 October 2024 07:58 S
[2024-10-07] VITALS (79 sets, daily range): BP systolic 104–152; BP diastolic 36–51; PULSE 51–91; RESP 14–16; TEMP 36.1–36.9; O2SAT 90–100
[2024-10-07] MEDS: linezolid premix 600 MG/300 ML PREMIX 300 MG IV ×2 (00:09→12:31)
[2024-10-07] MEDS: cefepime 1,000 mg SDV 1000 MG IVP (00:10)
[2024-10-07] MEDS: propofol 1,000 MG/100 ML INJ 13.06 MG IV ×4 (02:22→20:43)
[2024-10-07] MEDS: norepinephrine 4 MG/250 ML BAG 26.25 MG IV (03:02)
[2024-10-07] MEDS: fentaNYL 1,000 MCG/100 ML BAG 12.5 MCG IV ×3 (04:24→20:29)
--- NOTE | 2024-10-07 04:28 | PC.NURSE ---
patients urine output decreased. patient had 50 cc out in the last [address] galindo notified
[2024-10-07 04:36] LABS: Basophils # 0.1 10^3/uL (0.0-0.1); Basophils % 0.4 %; Eosinophils % 0.2 %; Hematocrit 24.7 % (36-47); Lymphocytes # 0.6 10^3/uL (0.8-4.8); Lymphocytes % 3.7 %; Mean Corpuscular Hemoglobin 29.3 pg (27-33); Mean Corpuscular Volume 91.5 fl (85-98); Mean Platelet Volume 12.1 fL (7.4-10.4); Monocytes # 0.9 10^3/uL (0.2-0.9); Monocytes % 5.4 %; Neutrophils # 14.64 10^3/uL (1.8-7.7); Neutrophils % 89.6 %; Nucleated Red Blood Cells % 0 %; Platelet Count 224 10^3/cmm (157-399); Red Cell Distribution Width 14.5 % (12.1-15.1); White Blood Count 16.34 10^3/uL (3.29-11.43)
[2024-10-07 04:54] LABS: Anion Gap 21.2 (5-19); Blood Urea Nitrogen 46 mg/dL (8-23); Calcium 7.3 mg/dL (8.5-10.5); Carbon Dioxide 19 mmol/L (22-29); Chloride 92 mmol/L (98-107); Glucose 107 mg/dL (65-115); Osmolality Calculated 278 mOsm/kg (285-295); Potassium 4.2 mmol/L (3.5-5.1); Sodium 128 mmol/L (136-145)
[2024-10-07 05:18] LABS: ABG PH Result 7.32 (7.35-7.45); Alveolar-Arterial Oxygen Gradi 19.3 mmHg (5-10); Arterial Blood Gas Hematocrit 22.4 % (37-47); Base Excess ABG -4.4 mmol/L (-2.0-2.0); Blood Gas Allen Test Pos; Blood Gas Operator Identificat Anonymous; Blood Gas Sample Site Radial, right; Blood Gas Sample Type Arterial; Carboxyhemoglobin 0.8 %THgb (0.4-20.1); HCO3 ABG 21.4 mmol/L (22-26); HGB O2 Sat 92.2 % (95-100); Methemoglobin 1.7 % (0.4-1.5); Oxygen Device VENT; Oxygen Saturation ABG 94.6; PO2 ABG 83.6 mmHg (80.0-100.0); PO2 FiO2 Ratio Arterial Blood 209; Potassium Level - ABG 4.1 mmol/L (3.5-5.0); Total Hemoglobin 7.3 g/dL (12-16)
[2024-10-07 05:26] LABS: Slide Review Slide Review Perform
[2024-10-07] MEDS: sodium chloride 0.9% 250 ML IV (05:50)
--- NOTE | 2024-10-07 07:45 | PM.PN ---
Subjective Subjective: (Please consider this note for 10/06 as patient was managed and seen but note not put in) Patient intubated and sedated. Requiring small dose of levophed at this time. Vitals/I&O/Wt Last Vital Signs Temp 98.5 F 10/07/24 04:00 Pulse 70 10/07/24 06:30 Resp 14 10/07/24 04:00 BP 142/48 10/07/24 06:30 Pulse Ox 100 10/07/24 06:30 O2 Del Method Mechanical Ventilation 10/06/24 19:39 O2 Flow Rate 15 10/05/24 20:17 FiO2 40 10/07/24 04:00 10/06/24 10/07/24 10/07/24 22:59 06:59 14:59 Intake Total 547.145 / 1216.608 658.433 / 1875.041 Output Total 575 / 575 150 / 725 Balance -27.855 / 641.608 508.433 / 1150.041 Weight last 48 hrs Weight 117 lb 15.157 oz Weight 116 lb 13.52 oz Weight 113 lb 8.609 oz Weight 120 lb Weight 125 lb Physical Exam Narrative: GENERAL: Patient is intubate and sedated NECK: No jugular vein distension. [] HEENT: No cyanosis. No icterus. No pallor. [] HEART: Regular S1 and S2. No murmur, rub or gallop. [] LUNGS: Diminished air entry bilaterally CENTRAL NERVOUS SYSTEM: Grossly nonfocal. [] EXTREMITIES: Lower extremities with 1+ edema bilaterally. Data 10/07/24 04:09 10/07/24 04:09 Micro: Microbiology 10/05/24 23:42 Blood Culture - Preliminary Blood NEGATIVE TO DATE 10/05/24 20:41 Blood Culture - Preliminary Blood NEGATIVE TO DATE A&P Assessment and plan (1) Unstable angina: (2) Peripheral arterial disease with history of revascularization: (3) Paroxysmal atrial flutter: (4) Benign hypertension: (5) Chronic kidney disease (CKD): (6) Pneumonia: (7) NSTEMI (non-ST elevated myocardial infarction): Plan Patient had PCI of left main to proximal LAD with 2 stents. On aspirin and Plavix. Echo shows mildly reduced LV systolic function. Lactic acid has improved significantly from over 7 last night to 2.5 today. Medicine team on board for management of medical issues including pneumonia/UTI. Vent management per medicine team PDMP PDMP Reviewed: Not Reviewed Attestations Medical Necessity Statement*: Care expected to cross 2 midnights. Transition presented with NSTEMI and pulmonary edema. Currently intubated and sedated. Had PCI of left main artery to LAD with 2 stents. Coding Level of Care Code Acute Code for [facility] Fwd Diagnoses Unstable angina I20.0 Peripheral arterial disease with history of revascularization I73.9; Z98.890 Paroxysmal atrial flutter I48.92 Benign hypertension I10 Stage 3a chronic kidney disease N18.9 Pneumonia J18.9 NSTEMI (non-ST elevated myocardial infarction) I21.4
--- NOTE | 2024-10-07 07:47 | CT_ITS ---
WS: [id number] CT ABDOMEN PELVIS TECHNIQUE: Noncontrast CT of the abdomen and pelvis with coronal and sagittal reformatted images. CLINICAL INFORMATION: sepsis, GIL, oliguria COMPARISON: 2023 DLP: 537.[address] scans at [facility] [place] use at least one of these dose optimization techniques: automated exposure control; mA and/or kV adjustment per patient size (includes targeted exams where dose is matched to clinical indication); or iterative reconstruction. FINDINGS: Thoracolumbar curve. Enteric tube is partially visualized coiled in the stomach. Large esophageal hiatal hernia. Gallbladder is contracted. Cholelithiasis. Small bilateral pleural effusions. Compressive atelectasis with patchy infiltrates in the lung bases with interstitial edema. Fatty atrophy of the pancreas. Dense vascular calcification. Normal noncontrast spleen. Hepatomegaly. RIGHT hepatic cyst or hemangioma unchanged. Adrenal glands are normal. Bilateral renal parenchymal scarring and atrophy. 3.7 cm LEFT renal cyst. Adrenal glands are normal. Mcmillan catheter. Sigmoid diverticulosis. No evidence of high-grade small or large bowel obstruction. Calcified uterine fibroid. No other acute findings. CT/CT abdomen pelvis wo con [id number] IMPRESSION: 1. Large esophageal hernia. 2. Small bilateral pleural effusions with compressive atelectasis and infiltra afshin in the lung bases. 3. Bilateral renal atrophy with parenchymal scarring. No hydronephrosis. 4. Mcmillan catheter. 5. Rectosigmoid constipation. 6. Hepatomegaly. 7. No other acute findings.
--- NOTE | 2024-10-07 08:13 | P.PN_ITS ---
Subjective 2 Subjective: Patient's pressor requirement is improving. Intubated and sedated Vitals/I&O/Wt Last Vital Signs Temp 98.5 F 10/07/24 04:00 Pulse 70 10/07/24 06:30 Resp 14 10/07/24 07:25 BP 142/48 10/07/24 06:30 Pulse Ox 100 10/07/24 07:25 O2 Del Method Mechanical Ventilation 10/06/24 19:39 O2 Flow Rate 15 10/05/24 20:17 FiO2 40 10/07/24 07:25 10/06/24 10/07/24 10/07/24 22:59 06:59 14:59 Intake Total 547.145 / 1216.608 658.433 / 1875.041 Output Total 575 / 575 150 / 725 Balance -27.855 / 641.608 508.433 / 1150.041 Weight last 48 hrs Weight 117 lb 15.157 oz Weight 116 lb 13.52 oz Weight 113 lb 8.609 oz Weight 120 lb Weight 125 lb Physical Exam 2 Narrative: GENERAL: Patient is intubate and sedated NECK: No jugular vein distension. [] HEENT: No cyanosis. No icterus. No pallor. [] HEART: Regular S1 and S2. No murmur, rub or gallop. [] LUNGS: Diminished air entry bilaterally CENTRAL NERVOUS SYSTEM: Grossly nonfocal. [] EXTREMITIES: Lower extremities with 1+ edema bilaterally. Data 10/08/24 03:30 10/08/24 03:30 Micro: Microbiology 10/05/24 23:42 Blood Culture - Preliminary Blood NEGATIVE TO DATE 10/05/24 20:41 Blood Culture - Preliminary Blood NEGATIVE TO DATE A&P Assessment and plan (1) Unstable angina: (2) Peripheral arterial disease with history of revascularization: (3) Paroxysmal atrial flutter: (4) Benign hypertension: (5) Chronic kidney disease (CKD): (6) Pneumonia: (7) NSTEMI (non-ST elevated myocardial infarction): Plan Patient had PCI of left main to proximal LAD with 2 stents. On aspirin and Plavix. Echo shows mildly reduced LV systolic function. Will need nephrology consult as has developed GIL on CKD secondary to contrast induced nephropathy and ATN with hypotension Continue to wean off pressors as able. Gentle diuresis. Appropriate to transfuse to keep hgb over 8 Medicine team on board for management of medical issues and vent management. Appreciate assistance. Antibiotic therapy for UTI/ pneumonia. PDMP PDMP Reviewed: Not Reviewed Attestations 2 Medical Necessity Statement*: Care expected to cross 2 midnights. Coding Level of Care Code Acute Code for [facility] Fwd Diagnoses Unstable angina I20.0 Peripheral arterial disease with history of revascularization I73.9; Z98.890 Paroxysmal atrial flutter I48.92 Benign hypertension I10 Stage 3a chronic kidney disease N18.9 Pneumonia J18.9 NSTEMI (non-ST elevated myocardial infarction) I21.4
[2024-10-07] MEDS: clopidogrel 75 mg Tablet PO (08:38)
[2024-10-07] MEDS: aspirin 81 mg EC Tablet PO (08:38)
[2024-10-07] MEDS: sodium chloride 0.9% 1,000 ML 999 ML IV (08:38)
--- NOTE | 2024-10-07 12:44 | P.PN_ITS ---
Subjective 2 Subjective: She was down to 30% FiO@ and 5 of PEEP on the vent this morning. She was started on 1 L NS bolus because of her GIL and continued need for IV pressors. She went down from CT abdomen and pelvis and became hypoxic. Vitals/I&O/Wt Last Vital Signs Temp 98.2 F 10/07/24 12:00 Pulse 65 10/07/24 12:00 Resp 14 10/07/24 12:13 BP 132/46 10/07/24 12:00 Pulse Ox 90 10/07/24 12:13 O2 Del Method Mechanical Ventilation 10/07/24 12:00 O2 Flow Rate 15 10/05/24 20:17 FiO2 30 10/07/24 12:13 10/06/24 10/07/24 10/07/24 22:59 06:59 14:59 Intake Total 547.145 / 1216.608 658.433 / 1875.041 181.625 / 181.625 Output Total 575 / 575 150 / 725 Balance -27.855 / 641.608 508.433 / 1150.041 181.625 / 181.625 Weight last 48 hrs Weight 53.5 kg Weight 53 kg Weight 51.5 kg Weight 54.431 kg Weight 56.699 kg Physical Exam 2 Const: GENERAL APPEARANCE: patient mechanically ventilated and other (Sedated) HENMT: COMMON NORMALS: normocephalic, atraumatic and moist oral mucous membranes HEAD & SCALP: normocephalic and atraumatic OTHER: Intubated Eye: COMMON NORMALS: conjunctivae normal CONJUNCTIVA: Yes conjunctivae normal Neck/C-Spine: COMMON NORMALS: supple and no JVD Chest: COMMONS NORMALS: normal inspection of the chest Resp: EFFORT & INSPECTION: Yes symmetric chest movement AUSCULTATION: r honchi Cardio: COMMON NORMALS: no JVD, regular rate, regular rhythm and No murmurs present (Cardio) RATE: regular rate RHYTHM: regular rhythm GI: COMMON NORMALS: Normal to inspection, nondistended, normoactive bowel sounds present : COMMON NORMALS: Yes no CVA tenderness BLADDER/KIDNEY EXAM: Yes no CVA tenderness Back/Pelvis: COMMON NORMALS: no CVA tenderness Extremity: COMMON NORMALS: normal to inspection GENERAL: Yes edema O THER: 1+ pitting edema bilateral lower extremi ties, and edema in left hand Neuro: OTHER: On continuous sedation Skin: COMMON NORMALS: no rashes or lesions noted GENERAL SKIN EXAM: no rashes or lesions noted Data 10/07/24 04:09 10/07/24 04:09 Micro: Microbiology 10/05/24 23:42 Blood Culture - Preliminary Blood NEGATIVE TO DATE 10/05/24 20:41 Blood Culture - Preliminary Blood NEGATIVE TO DATE A&P Assessment and plan (1) Pneumonia: Pneumonia of healthcare associated?patient from group home - Next of breath with respiratory failure is multifactorial) pneumonia and coronary artery disease - Panculture from blood and urine - Will treat the pneumonia with cefepime to cover the gram-negative and Zyvox to cover MRSA and Vanco - resistant organisms, patient is a group home resident Zyvox its renal friendly - Initiate nebulizing treatment - Continue airway intubation at this time till acidosis is resolved (2) UTI (urinary tract infection): UTI - Patient on antibiotics for pneumonia and this will be able to optimize UTI - Continue antibiotics - Follow culture and sensitivity and optimize accordingly (3) Weakness: Weakness and debility - Bedside PT OT - PT OT consulted to assess and treat (4) Lactic acidosis: Lactic acidosis is significant for tissue injury not of infection Continue to optimize and monitor interval changes (5) Metabolic acidosis: Continue to neutralized the acidosis from tissue injury Bicarb drip x 1 L and reassess (6) Unstable angina: Primary team taking care of this Patient had 2 stent placement in in the main coronary artery Patient was status post 2 stent placement in LAD distribution (7) Peripheral arterial disease with history of revascularization: Patient is with known PVD and had been status post revascularization in the past Continue antiplatelet (8) Respiratory failure: Continue vent management for now Plan Septic shock secondary to UTI and pneumonia (present on admission) - blood culture 1/4 growing GNR ? SIRS: Leukocytosis, lactic acid, hypotension, hypoxia ? Continue linezolid and cefepime ? On Levophed; wean as tolerated ? Follow-up blood, sputum and urine cultures Acute hypoxic and hypercapnic respiratory failure ? Secondary to bilateral pneumonia ? Mechanically ventilated ? Wean FiO2 as tolerated ? Monitor O2 sats NSTEMI ? Critical ostial LAD stenosis status post stents x 2 to the proximal LAD ? Continue aspirin and Plavix Chronic anemia ?Hemoglobin 7.9 this morning; will give her 1 unit of PRBCs given her NSTEMI ? Goal hemoglobin around 9.0 g/dL - will check iron studies Lactic acidosis ?Secondary to sepsis; has improved Hyponatremia ?She has had mild hyponatremia in the past ? Sodium 128 today; monitor GIL on CKD stage 3 - baseline creatinine 2.1-2.3; increased to 2.8 today - will consult nephrology GI and DVT prophylaxis in place PDMP PDMP Reviewed: Not Reviewed Attestations 2 Medical Necessity Statement*: Patient requires continued ICU hospitalization for mechanical ventilation, IV pressors, telemetry monitoring, continuous oxygen monitoring. Also getting blood transfusion Critical Care Time: Total critical care time spent equals 40 minutes. Coding Level of Care Code Critical Care >/= 30 minutes Diagnoses Pneumonia J18.9 UTI (urinary tract infection) N39.0 Weakness R53.1 Lactic acidosis E87.20 Metabolic acidosis E87.20 Unstable angina I20.0 Peripheral arterial disease with history of revascularization I73.9; Z98.890 Respiratory failure J96.90
--- NOTE | 2024-10-07 12:48 | XR_ITS ---
WS: [id number] Portable AP semiupright chest, 10/07/2024 Clinical Data: f/u pulmonary edema Comparison: Portable chest, 10/06/2024 Findings: The bilateral pulmonary opacities remain the same. The heart size has not changed. The endotracheal tube and nasogastric tube remain in the same position. The aortic arch shows calcification. Monitor leads are on the chest wall. XR/XR chest 1V portable [id number] Impression: 1. No change in endotracheal tube and nasogastric tube. 2. No change in bilateral pulmonary opacities and atherosclerosis.
--- NOTE | 2024-10-07 13:42 | PM.CONSULT ---
Providers/Reason For Consult Consulting Physician/Specialty*: ivelisse ramirez md/ telenephrology Reason for Consult*: GIL on CKD Requesting Physician: Dr Jocelin Valadez Attending Physician: Chaz Stein M.D Primary Care Provider: Aakash Estrella MD History of Present Illness History of Present Illness Maria Isabel Ho is a 79 year old female alf resident. she was admitted on 10/05/24 with an AMI/ NSTEMI, UTI, and pneumonia. she was treated w/ abx and was taken to [facility] where she had 2 stents to LAD and 2 stents to the main coronary artery. Patient was intubated andtransfered to the ICU and started on pressors The pt had a lactic acidosis that is improving the pts pressor requirements have improved. however, while she has a baseline cKD, with cr rising to 2.1 mg/dl at baseline. she has developed oliguric stage 3 GIL and renal is called Review of Systems Narrative: unable to ascertain as she is intbated and sedated Medications/Allergies Home Medications ?Medication ?Instructions ?Recorded ?Confirmed ?Last Taken ?Type aspirin 81 mg tablet,delayed 81 mg PO QAM 05/06/20 10/06/24 02/29/24 History release clopidogrel 75 mg tablet 75 mg PO QAM 05/06/20 10/06/24 02/25/24 History lovastatin 40 mg tablet 40 mg PO QAM 05/06/20 10/06/24 02/25/24 History bisacodyl 10 mg rectal suppository 10 mg TX DAILY PRN Constipation 04/18/22 10/06/24 Unknown History levothyroxine 88 mcg tablet 88 mcg PO QAM 04/18/22 10/06/24 02/29/24 History magnesium hydroxide 400 mg/5 mL 30 ml PO DAILY PRN Constipation 04/18/22 10/06/24 Unknown History oral suspension (Milk of Magnesia) polyethylene glycol 3350 17 17 g PO DAILY PRN Constipation 04/18/22 10/06/24 Unknown History gram/dose oral powder sennosides 8.6 mg tablet (senna) 8.6 mg PO DAILY PRN Constipation 04/18/22 10/06/24 Unknown History hydroxyzine HCl 10 mg tablet 10 mg PO DAILY PRN Anxiety 08/16/22 10/06/24 06/11/23 History amlodipine 2.5 mg tablet 2.5 mg PO BID 05/07/23 10/06/24 03/01/24 History ferrous sulfate 325 mg (65 mg 325 mg PO QAM 05/07/23 10/06/24 02/29/24 History iron) tablet losartan 50 mg tablet 50 mg PO BID 05/07/23 10/06/24 02/29/24 History aluminum-mag hydroxide-simethicone 30 ml PO Q4H PRN Indigestion 06/12/23 10/06/24 Unknown History 200 mg-200 mg-20 mg/5 mL oral susp carboxymethylcellulose sodium 1 % 1 drp ophthalmic (eye) Q4H PRN Dry 06/12/23 10/06/24 02/29/24 History eye drops (Artificial Tears Eyes (carboxymethylcellulose)) cyanocobalamin (vitamin B-12) 500 500 mcg PO QAM 06/12/23 10/06/24 02/29/24 History mcg tablet naloxone 2 mg/2 mL syringe kit 2 mg IM Q3M PRN Opioid Overdose 06/12/23 10/06/24 Unknown History hydralazine 100 mg tablet 100 mg PO TID #270 tabs 08/06/23 10/06/24 02/29/24 Rx buspirone 10 mg tablet 10 mg PO BID 09/25/23 10/06/24 02/29/24 History acetaminophen 325 mg tablet 650 mg PO Q6H PRN Pain or temp 02/04/24 10/06/24 02/29/24 History pantoprazole 40 mg tablet,delayed 40 mg PO DAILY 02/25/24 10/06/24 02/29/24 History release cefdinir 300 mg capsule 300 mg PO BID 7 days #14 caps 10/05/24 10/06/24 Unknown Rx levofloxacin 750 mg tablet 750 mg PO Q48H 10 days #5 tabs 10/05/24 10/06/24 Unknown Rx Lactobacillus acidophilus 1,000 mmu cells PO QAM for 21 days 10/06/24 10/06/24 Unknown History (Acidophilus capsule) escitalopram oxalate 20 mg tablet 20 mg PO DAILY 10/06/24 10/06/24 Unknown History (Lexapro) ipratropium 0.5 mg-albuterol 3 mg 3 ml inhalation Q4H pneumonia 10/06/24 10/06/24 Unknown History (2.5 mg base)/3 mL nebulization soln ipratropium 0.5 mg-albuterol 3 mg 3 ml inhalation QID 10/06/24 10/06/24 Unknown History (2.5 mg base)/3 mL nebulization soln melatonin 5 mg tablet 5 mg PO BEDTIME 10/06/24 10/06/24 Unknown History zinc sulfate 50 mg zinc (220 mg) 50 mg PO QAM 10/06/24 10/06/24 Unknown History tablet Allergies Allergy/AdvReac Type Severity Reaction Status Date / Time Penicillins Allergy ALGY-Hives Verified 10/05/24 20:36 tetracycline Allergy ALGY-Hives Verified 10/05/24 20:36 Current Medications Generic Name Dose Route Start Last Admin Trade Name Freq PRN Reason Stop Dose Admin Aspirin 81 mg 10/06/24 09:00 10/07/24 08:38 Aspirin 81 Mg Ec Tablet PO 81 mg DAILY TABATHA Administration Cefepime HCl 1,000 mg 10/06/24 00:00 10/07/24 00:10 Cefepime 1,000 Mg Sdv IVP 1,000 mg Q24H TABATHA Administration Protocol Clopidogrel Bisulfate 75 mg 10/06/24 09:00 10/07/24 08:38 Clopidogrel 75 Mg Tablet PO 75 mg DAILY TABATHA Administration Fentanyl 1,000 mcg in 100 mls @ 0 mls/hr 10/05/24 22:30 10/07/24 12:31 Sublimaze IV 125 mcg/hr .Q0M TABATHA 12.5 mls/hr Protocol Administration Per Protocol Propofol 1,000 mg in 100 mls @ 0 mls/hr 10/05/24 22:30 10/07/24 08:37 Diprivan IV 40 mcg/kg/min .Q0M TABATHA 13.06 mls/hr Protocol Administration Per Protocol Norepinephrine Bitartrate 4 mg in 250 mls @ 0 mls/hr 10/05/24 23:15 10/07/24 06:34 Levophed IV 4 mcg/min .Q0M TABATHA 15 mls/hr Protocol Titration Per Protocol Linezolid 600 mg in 300 mls @ 300 mls/hr 10/06/24 00:00 10/07/24 12:31 Zyvox Premix IV 300 mls/hr Q12H TABATHA Administration Protocol PFSH Acute PFSH: Medical History Bicytopenia Peripheral arterial disease with history of revascularization Bradycardia Chronic hyponatremia Exertional dyspnea COPD exacerbation Orthostatic hypotension Syncope COPD (chronic obstructive pulmonary disease) Hx of type 2 diabetes mellitus Peripheral vascular disease Hx of chest pain History of hypertension Frequent falls Hx of hyperlipidemia Chronic back pain Postmenopausal Impaired physical mobility Hx of renal calculi Smoker Chronic kidney disease (CKD) Surgical History Hx of tubal ligation Family History Grandmother Clotting disorder Brother Cancer Diabetes Stroke Son Chronic kidney disease (CKD) Mother Diabetes Father Stroke Denies family history of CAD (coronary artery disease) Dementia Suicide Anesthesia complication Bleeding disorder Lung disease Social History Smoking and tobacco/nicotine status: current some day tobacco/nicotine user Alcohol intake: never Substance/Drug Use: never Vitals/I&O/Wt Last Vital Signs Temp 98.1 F 10/07/24 13:04 Pulse 72 10/07/24 13:04 Resp 14 10/07/24 13:04 BP 113/46 10/07/24 13:04 Pulse Ox 90 10/07/24 13:04 O2 Del Method Mechanical Ventilation 10/07/24 12:00 O2 Flow Rate 15 10/05/24 20:17 FiO2 40 10/07/24 13:00 10/06/24 10/07/24 10/07/24 22:59 06:59 14:59 Intake Total 547.145 / 1216.608 658.433 / 1875.041 181.625 / 181.625 Output Total 575 / 575 150 / 725 Balance -27.855 / 641.608 508.433 / 1150.041 181.625 / 181.625 Weight last 48 hrs Weight 53.5 kg Weight 53 kg Weight 51.5 kg Weight 54.431 kg Weight 56.699 kg Physical Exam Narrative: The patient is intubated. She is on 2 mcg of Levophed. Her vent settings are VC DCD 40% FiO2 tidal volumes 400 respiratory rate of 14 PEEP set up to 8. HEENT normocephalic atraumatic neck is supple lungs per nurse is clear on chest x-ray she has abnormalities on her right lower lobe. Heart is regular. Abdomen is soft positive bowel sounds Extremities do not have edema. Neuro sedated. Data 10/07/24 04:09 10/07/24 04:09 Micro: Microbiology 10/05/24 23:42 Blood Culture - Preliminary Blood NEGATIVE TO DATE 10/05/24 20:41 Blood Culture - Preliminary Blood NEGATIVE TO DATE A&P Assessment and plan (1) Acute kidney injury superimposed on CKD: 79-year-old lady diabetic hypertensive CKD, EF of 45% with grade 1 diastolic dysfunction and pulmonary hypertension. Patient's creatinine has been rising over the last couple years from 1.5 to 2.1 mg/dL. Patient presented after recent antibiotic and is now here with presumed utI plus minus pneumonia and non-ST elevation [place]. Patient had significant hypotension on October 05, 2024 went to the [facility] and had stents in contrast. 1. CKD stage IV baseline creatinine 2 mg/dL is presumed diabetic hypertensive. Will also send serum protein electrophoresis, there was normal in 2023. -She does not have significant proteinuria on urinalysis making diabetic nephropathy less typical here. 2. Acute kidney injury in this patient is likely ATN versus contrast-induced GIL. Patient had significant hypotension required significant amount of contrast 2016. The timeline is appropriate for contrast-induced GIL?as she was high risk on an ARB and hypotensive and infected. At this time 1 avoid nephrotoxins. Will check complements and CPK. If patient develops worsening respiratory distress then the major issue is if this is worsening pneumonia or heart failure. I reviewed her x-ray and it appears that she has both pneumonia and some volume overload. -We can then give diuretics as needed. Unfortunately the patient has CKD stage IV at baseline diabetes and question of hypertension she is at risk that her acute kidney injury will take time to improve. And there is a possibility she will need renal replacement therapy. If blood pressure stabilizes 1 can start a diuretic. For now would monitor. Will repeat urine studies to see if there has been no change agent the last 2 days. Can send urine electrolytes microalbumin and protein creatinine. CT of her abdomen did not show any hydronephrosis but did appear to have chronic kidney disease. 3. Patient is in mild respiratory and metabolic acidosis. Will repeat lactic acid. Monitor abdominal exams. Tenderness. Renal dose all antibiotics. Avoid nephrotoxins. 3. Hyponatremia check urine studies., Check TSH and cortisol level. Free water restrict. Acute kidney injury can cause hyponatremia heart failure clinic this afternoon please dosee all meds for GFR <5 The patient was seen and examined with the aid of a nurse using audiovisual equipment. Case discussed in detail with patient's nurse and Dr. Valadez. Plan See above. PDMP PDMP Reviewed: Not Reviewed Consult Attestations Medical Necessity Statement: Pneumonia, acute kidney injury, vent dependent respiratory failure, low-dose pressors. Recent non-ST elevation [place] status post 2 stents. Time Spent in Patient Care: Greater than 35 minutes (>than 50% of time spent in counselling and/or direct pt care on unit). Coding Level of Care Code Acute Code for Chg Fwd Diagnoses Acute kidney injury superimposed on CKD N17.9; N18.9
[2024-10-07 13:58] LABS: Ferritin 501 ng/mL (15-150); Iron 8 ug/dL (37-145); Magnesium 1.7 mg/dL (1.7-2.3); Percent Saturation 5.7 % (20-50); Phosphorus 6.9 mg/dL (2.5-4.5); Total Iron Binding Capacity 139 mcg/dl; Unsaturated Iron Binding 131 ug/dL (112-347)
[2024-10-07 14:09] LABS: Lactate (Lactic Acid level) 2.1 mmol/L (0.5-2.2)
[2024-10-07 14:39] LABS: Complement C3 112 mg/dL (90-180)
[2024-10-07 14:46] LABS: Hepatitis C Virus Antibody Non-Reactive (Nonreactive)
[2024-10-07 14:54] LABS: Creatine Phosphokinase 7153 U/L (26-192)
[2024-10-07 14:57] LABS: Uric Acid 9.2 mg/dL (2.4-5.7)
[2024-10-07 15:46] LABS: Bilirubin Urine Negative (Negative); Blood Urine 3+ (Negative); Glucose Urine UA Negative (Normal); Ketones Urine Negative (Negative); Leukocyte Esterase Urine Trace (Negative); Nitrate Urine Negative (Negative); Protein Urine 1+ (Negative); Urine Appearance Cloudy (CLEAR); Urine Color Yellow (Yellow)
[2024-10-07 15:51] LABS: Add Urine Microscopic? YES; Hyaline Casts Urine 0.81 /lpf; RBC Urine 21-50 /hpf (0-2); Squamous Epithelial Cell Urine 0-5 /hpf (0-5)
[2024-10-07 16:01] LABS: UA Slide Review UA Slide Review Perf
[2024-10-07 16:02] LABS: Add Urine Culture? Yes; Amorphous Sediment Urine TRACE /hpf; Fine Granular Casts Urine 0-4 /lpf
[2024-10-07 16:05] LABS: Creatinine Urine, Random 78 mg/dL (28-217); Microalbumin Random Urine 7 ug/dL (0-20)
[2024-10-07 16:06] LABS: Potassium, Radom Urine 39 mmol/L; Urine Creatinine 81 mg/dL (28-217)
[2024-10-07 16:08] LABS: Microalbum Creatinine Ratio Ur 90 mg/dL (0-20); Urine Protein Random 52 mg/dL; Urine Random Chloride 12 mmol/L; Urine Random Sodium 13 mmol/L
[2024-10-08] VITALS (91 sets, daily range): BP systolic 104–153; BP diastolic 38–76; PULSE 50–84; RESP 14–18; TEMP 36.1–36.4; O2SAT 92–100
[2024-10-08] MEDS: cefepime 1,000 mg SDV 1000 MG IVP (00:30)
[2024-10-08] MEDS: linezolid premix 600 MG/300 ML PREMIX 300 MG IV ×2 (00:30→11:12)
[2024-10-08] MEDS: norepinephrine 4 MG/250 ML BAG 3.75 MG IV (00:53)
[2024-10-08] MEDS: fentaNYL 1,000 MCG/100 ML BAG 12.5 MCG IV ×2 (03:07→10:10)
[2024-10-08] MEDS: propofol 1,000 MG/100 ML INJ 13.06 MG IV (03:07)
[2024-10-08 03:40] LABS: Basophils % 0.4 %; Eosinophils # 0.1 10^3/uL (0.0-0.8); Eosinophils % 0.8 %; Lymphocytes # 0.3 10^3/uL (0.8-4.8); Lymphocytes % 3.1 %; Mean Corpuscular HGB Conc 33.6 g/dL (30-55); Mean Corpuscular Hemoglobin 29.9 pg (27-33); Mean Corpuscular Volume 89.2 fl (85-98); Mean Platelet Volume 12.3 fL (7.4-10.4); Monocytes # 0.5 10^3/uL (0.2-0.9); Monocytes % 4.2 %; Neutrophils # 10.03 10^3/uL (1.8-7.7); Neutrophils % 90.8 %; Nucleated Red Blood Cells % 0 %; Platelet Count 174 10^3/cmm (157-399); Red Blood Count 3.14 10^6/uL (3.85-5.65); Red Cell Distribution Width 14.4 % (12.1-15.1); White Blood Count 11.04 10^3/uL (3.29-11.43)
[2024-10-08 04:01] LABS: Alanine Aminotransferase 52 U/L (0-33); Albumin Level 2.2 g/dL (3.5-5.2); Alkaline Phosphatase 88 U/L (35-105); Anion Gap 23.9 (5-19); Aspartate Amino Transferase 169 U/L (0-32); Blood Urea Nitrogen 50 mg/dL (8-23); Calcium 6.7 mg/dL (8.5-10.5); Carbon Dioxide 16 mmol/L (22-29); Chloride 95 mmol/L (98-107); Ferritin 533 ng/mL (15-150); Globulin 3.2 g/dL (1.3-4.6); Glucose 93 mg/dL (65-115); Iron 27 ug/dL (37-145); Magnesium 1.7 mg/dL (1.7-2.3); Osmolality Calculated 285 mOsm/kg (285-295); Percent Saturation 22.8 % (20-50); Phosphorus 7.2 mg/dL (2.5-4.5); Potassium 3.9 mmol/L (3.5-5.1); Sodium 131 mmol/L (136-145); Total Bilirubin 0.4 mg/dL (0.15-1.2); Total Iron Binding Capacity 118 mcg/dl; Total Protein 5.4 g/dL (6.6-8.7); Unsaturated Iron Binding 91 ug/dL (112-347)
[2024-10-08 04:05] LABS: Calcium 6.5 mg/dL (8.5-10.5)
[2024-10-08 04:10] LABS: Parathyroid Hormone 289.7 pg/mL (15-65)
[2024-10-08 04:15] LABS: 25 Hydroxy Vitamin D 8 ng/mL (30-100)
[2024-10-08 05:34] LABS: ABG PCO2 32.4 mmHg (35-45); ABG PH Result 7.35 (7.35-7.45); Alveolar-Arterial Oxygen Gradi 10.3 mmHg (5-10); Arterial Blood Gas Hematocrit 30.7 % (37-47); Base Excess ABG -6.9 mmol/L (-2.0-2.0); Blood Gas Allen Test Pos; Blood Gas Sample Site Radial, left; Blood Gas Sample Type Arterial; Carboxyhemoglobin 0.3 %THgb (0.4-20.1); HCO3 ABG 17.9 mmol/L (22-26); HGB O2 Sat 94.1 % (95-100); Ionized Calcium Level - ABG 0.9 mmol/L (1.1-1.4); Methemoglobin 1.4 % (0.4-1.5); Oxygen Device VENT; Oxygen Saturation ABG 95.7; PO2 ABG 93.2 mmHg (80.0-100.0); PO2 FiO2 Ratio Arterial Blood 310; Potassium Level - ABG 3.8 mmol/L (3.5-5.0)
--- NOTE | 2024-10-08 07:39 | PM.PN ---
Vitals/I&O/Wt Last Vital Signs Temp 97.5 F L 10/08/24 03:43 Pulse 50 L 10/08/24 07:00 Resp 14 10/08/24 04:03 BP 121/43 10/08/24 07:00 Pulse Ox 100 10/08/24 07:00 O2 Del Method Mechanical Ventilation 10/08/24 03:43 O2 Flow Rate 15 10/05/24 20:17 FiO2 30 10/08/24 04:03 10/07/24 10/08/24 10/08/24 22:59 06:59 14:59 Intake Total 986.425 / 1250.546 466.501 / 1717.047 Output Total 425 / 425 700 / 1125 Balance 561.425 / 825.546 -233.499 / 592.047 Weight last 48 hrs Weight 63 kg Weight 53.5 kg Physical Exam Const: GENERAL APPEARANCE: patient mechanically ventilated and other (Sedated) HENMT: COMMON NORMALS: normocephalic, atraumatic and moist oral mucous membranes HEAD & SCALP: normocephalic and atraumatic OTHER: Intubated Eye: COMMON NORMALS: conjunctivae normal CONJUNCTIVA: Yes conjunctivae normal Neck/C-Spine: COMMON NORMALS: supple and no JVD Chest: COMMONS NORMALS: normal inspection of the chest Resp: EFFORT & INSPECTION: Yes symmetric chest movement AUSCULTATION: rhonchi Cardio: COMMON NORMALS: no JVD, regular rate, regular rhythm and No murmurs present (Cardio) RATE: regular rate RHYTHM: regular rhythm GI: COMMON NORMALS: Normal to inspection, nondistended, normoactive bowel sounds present : COMMON NORMALS: Yes no CVA tenderness BLADDER/KIDNEY EXAM: Yes no CVA tenderness Back/Pelvis: COMMON NORMALS: no CVA tenderness Extremity: COMMON NORMALS: normal to inspection and no pedal edema GENERAL: Yes edema OTHER: 1+ pitting edema bilateral lower extremities, and edema in left hand Neuro: OTHER: On continuous sedation Skin: COMMON NORMALS: no rashes or lesions noted GENERAL SKIN EXAM: no rashes or lesions noted Data 10/08/24 03:30 10/08/24 03:30 A&P Assessment and plan (1) Pneumonia: Pneumonia of healthcare associated?patient from [facility] - Next of breath with respiratory failure is multifactorial) pneumonia and coronary artery disease - Panculture from blood and urine - Will treat the pneumonia with cefepime to cover the gram-negative and Zyvox to cover MRSA and Vanco - resistant organisms, patient is a [facility] resident Zyvox its renal friendly - Initiate nebulizing treatment - Continue airway intubation at this time till acidosis is resolved (2) UTI (urinary tract infection): UTI - Patient on antibiotics for pneumonia and this will be able to optimize UTI - Continue antibiotics - Follow culture and sensitivity and optimize accordingly (3) Weakness: Weakness and debility - Bedside PT OT - PT OT consulted to assess and treat (4) Lactic acidosis: Lactic acidosis is significant for tissue injury not of infection Continue to optimize and monitor interval changes (5) Metabolic acidosis: Continue to neutralized the acidosis from tissue injury Bicarb drip x 1 L and reassess (6) Unstable angina: Primary team taking care of this Patient had 2 stent placement in in the main coronary artery Patient was status post 2 stent placement in LAD distribution (7) Peripheral arterial disease with history of revascularization: Patient is with known PVD and had been status post revascularization in the past Continue antiplatelet (8) Respiratory failure: Continue vent management for now Plan Septic shock secondary to UTI and pneumonia (present on admission) - blood culture / growing GNR ? SIRS: Leukocytosis, lactic acid, hypotension, hypoxia ? Continue linezolid and cefepime ? On Levophed; wean as tolerated ? Follow-up blood, sputum and urine cultures Acute hypoxic and hypercapnic respiratory failure ? Secondary to bilateral pneumonia ? Mechanically ventilated ? Wean FiO2 as tolerated ? Monitor O2 sats NSTEMI ? Critical ostial LAD stenosis status post stents x 2 to the proximal LAD ? Continue aspirin and Plavix Chronic anemia ?Hemoglobin 7.9 this morning; will give her 1 unit of PRBCs given her NSTEMI ? Goal hemoglobin around 9.0 g/dL - will check iron studies Lactic acidosis ?Secondary to sepsis; has improved Hyponatremia ?She has had mild hyponatremia in the past ? Sodium 128 today; monitor GIL on CKD stage 3 - baseline creatinine 2.1-2.3; increased to 2.8 today - will consult nephrology GI and DVT prophylaxis in place PDMP PDMP Reviewed: Not Reviewed Coding Level of Care Code Acute Code for [facility] [place] [facility] Diagnoses Pneumonia J18.9 UTI (urinary tract infection) N39.0 Weakness R53.1 Lactic acidosis E87.20 Metabolic acidosis E87.20 Unstable angina I20.0 Peripheral arterial disease with history of revascularization I73.9; Z98.890 Respiratory failure J96.90
--- NOTE | 2024-10-08 08:23 | P.PN_ITS ---
Subjective 2 Subjective: intubated, sedated on levo @ 1. I can not obtain a ROS as she is sedated Medications: Reviewed: Yes Medication Review Details: Current Medications Acetaminophen (Acetaminophen 325 Mg Tablet) 650 mg PO Q6H PRN PRN Reason: MILD PAIN Alprazolam (Alprazolam 0.5 Mg Tablet) 0.25 mg PO TID PRN PRN Reason: ANXIETY Aspirin (Aspirin 81 Mg Ec Tablet) 81 mg PO DAILY [facility] Last Admin: 10/07/24 08:38 Dose: 81 mg Atropine Sulfate (Atropine 1 Mg/Ml Sdv 1 Ml) 0.5 mg IVP PRN PRN PRN Reason: Symptomatic bradycardia Cefepime HCl (Cefepime 1,000 Mg Sdv) 1,000 mg IVP Q24H TABATHA; Protocol Last Admin: 10/08/24 00:30 Dose: 1,000 mg Clopidogrel Bisulfate (Clopidogrel 75 Mg Tablet) 75 mg PO DAILY [facility] Last Admin: 10/07/24 08:38 Dose: 75 mg Fentanyl (Fentanyl 50 Mcg/Ml Inj 2ml) 50 mcg IVP PRN PRN PRN Reason: PAIN Fentanyl (Sublimaze) 1,000 mcg in 100 mls @ 0 mls/hr IV .Q0M TABATHA; Protocol Last Admin: 10/08/24 03:07 Dose: 125 mcg/hr, 12.5 mls/hr Propofol (Diprivan) 1,000 mg in 100 mls @ 0 mls/hr IV .Q0M TABATHA; Protocol Last Admin: 10/08/24 03:07 Dose: 40 mcg/kg/min, 13.06 mls/hr Norepinephrine Bitartrate (Levophed) 4 mg in 250 mls @ 0 mls/hr IV .Q0M TABATHA; Protocol Last Admin: 10/08/24 00:53 Dose: 1 mcg/min, 3.75 mls/hr Linezolid (Zyvox Premix) 600 mg in 300 mls @ 300 mls/hr IV Q12H TABATHA; Protocol Last Infusion: 10/08/24 01:30 Dose: Infused Magnesium Hydroxide (Magnesium Hydroxide 30 Ml Udc) 30 ml PO DAILY PRN PRN Reason: CONSTIPATION Naloxone HCl (Naloxone 0.4 Mg/Ml Sdv) 0.1 mg IVP Q2M PRN PRN Reason: RESPIRATORY RATE < 8/MIN Nitroglycerin (Nitroglycerin 0.4 Mg Sublingual Tablet) 0.4 mg SUBLINGUAL Q5M PRN PRN Reason: CHEST PAIN Temazepam (Temazepam 15 Mg Capsule) 15 mg PO BEDTIME PRN PRN Reason: INSOMNIA Vitals/I&O/Wt Last Vital Signs Temp 97.5 F L 10/08/24 03:43 Pulse 50 L 10/08/24 07:00 Resp 14 10/08/24 08:08 BP 121/43 10/08/24 07:00 Pulse Ox 100 10/08/24 08:08 O2 Del Method Mechanical Ventilation 10/08/24 03:43 O2 Flow Rate 15 10/05/24 20:17 FiO2 30 10/08/24 08:08 10/07/24 10/08/24 10/08/24 22:59 06:59 14:59 Intake Total 986.425 / 1250.546 466.501 / 1717.047 Output Total 425 / 425 700 / 1125 Balance 561.425 / 825.546 -233.499 / 592.047 Weight last 48 hrs Weight 63 kg Weight 53.5 kg Physical Exam 2 Narrative: The patient is intubated. She is on 1 mcg of Levophed. Her vent settings are Fio2 30% tidal volumes 400 respiratory rate of 14 PEEP 6. HEENT normocephalic atraumatic neck is supple lungs per nurse is clear on chest x-ray she has abnormalities on her right lower lobe. Heart is regular. Abdomen is soft positive bowel sounds Extremities do not have edema. Neuro sedated. Data 10/08/24 03:30 10/08/24 03:30 A&P Assessment and plan (1) Acute kidney injury superimposed on CKD: 79-year-old lady diabetic hypertensive CKD, EF of 45% with grade 1 diastolic dysfunction and pulmonary hypertension. Patient's creatinine has been rising over the last couple years from 1.5 to 2.1 mg/dL. Patient presented after recent antibiotic and is now here with presumed utI plus minus pneumonia and non-ST elevation [place]. Patient had significant hypotension on October 05, 2024 went to the [facility] and had stents in contrast. 1. CKD stage IV baseline creatinine 2 mg/dL is presumed diabetic hypertensive. Will also send serum protein electrophoresis, there was normal in 2023. -She does not have significant proteinuria on urinalysis making diabetic nephropathy less typical here. 2. Acute kidney injury in this patient is likely ATN versus contrast-induced GIL. Patient had significant hypotension required significant amount of contrast on 10/05. The timeline is appropriate for contrast-induced GIL?as she was high risk on an ARB and hypotensive and infected. - avoid nephrotoxins. -normal complements - CPK 7153- repeat labs. unlikely high enough ck to cause GIL. -u/a- 3+ blood, 1+ prot, 21-50 rbc- will send serologies to rule out a renal pulmonary syndrome UPCR 08/26 UACR 90 -low ur na c/w prerenal azotemia- check w/ ivf -CT of her abdomen did not show any hydronephrosis but did appear to have chronic kidney disease. 3. Pt has a high AG metabolic acidosis w/ resp compensation =[place] improved to 2.1 -likely from GIL - no emergent need for dialysis -will give low dose bicarb drip 4. anemia- hgb improving -iron sat 22.8%, ferritin 533 5. Hyponatremia- low ur na c Check TSH and cortisol level. Free water restrict. Acute kidney injury can cause hyponatremia heart failure clinic this afternoon 6. hyperphosphatemia- monitor phos PTH 289.7 please dose all meds for GFR <5 7. Pneumonia -renal dose abx The patient was seen and examined with the aid of a nurse using audiovisual equipment. Case discussed in detail with patient's nurse and Dr. Valadez. Plan See above. PDMP PDMP Reviewed: Not Reviewed Attestations 2 Medical Necessity Statement*: VDRF, NSTEMI, PNA Coding Level of Care Code Acute Code for Chg Fwd Diagnoses Acute kidney injury superimposed on CKD N17.9; N18.9
[2024-10-08] MEDS: propofol 1,000 MG/100 ML INJ 6.53 MG IV (08:45)
[2024-10-08] MEDS: aspirin 81 mg EC Tablet PO (08:51)
[2024-10-08] MEDS: clopidogrel 75 mg Tablet PO (08:51)
[2024-10-08] MEDS: sodium bicarbonate 150 MEQ in dextrose 5% 1,000 ML 60 MEQ IV (08:53)
[2024-10-08 09:25] LABS: Thyroid Stimulating Hormone 0.88 uIU/mL (0.27-4.20)
--- NOTE | 2024-10-08 11:42 | P.PN_ITS ---
Subjective 2 Subjective: She remains sedated and mechanically ventilated. She is on minimal dose of levophed. Her creatinine was higher today but she has been making some urine. Nephrology is following. Vitals/I&O/Wt Last Vital Signs Temp 97.5 F L 10/08/24 03:43 Pulse 60 10/08/24 09:00 Resp 14 10/08/24 10:58 BP 114/44 10/08/24 09:00 Pulse Ox 96 10/08/24 10:58 O2 Del Method Mechanical Ventilation 10/08/24 03:43 O2 Flow Rate 15 10/05/24 20:17 FiO2 30 10/08/24 10:58 10/07/24 10/08/24 10/08/24 22:59 06:59 14:59 Intake Total 986.425 / 1250.546 466.501 / 1717.047 161.696 / 161.696 Output Total 425 / 425 700 / 1125 Balance 561.425 / 825.546 -233.499 / 592.047 161.696 / 161.696 Weight last 48 hrs Weight 63 kg Weight 53.5 kg Physical Exam 2 Const: GENERAL APPEARANCE: patient mechanically ventilated and other (Sedated) HENMT: COMMON NORMALS: normocephalic, atraumatic and moist oral mucous membranes HEAD & SCALP: normocephalic and atraumatic OTHER: Intubated Eye: COMMON NORMALS: conjunctivae normal CONJUNCTIVA: Yes conjunctivae normal Neck/C-Spine: COMMON NORMALS: supple and no JVD Chest: COMMONS NORMALS: normal inspection of the chest Resp: COMMON NORMALS: clear to auscultation bilaterally EFFORT & INSPECTION: Yes symmetric chest movement and Yes other (mechanically ventilated) AUSCULTATION: clear to auscultation bilaterally and rhonchi Cardio: COMMON NORMALS: no JVD, regular rate, regular rhythm and No murmurs present (Cardio) RATE: regular rate RHYTHM: regular rhythm GI: COMMON NORMALS: Normal to inspection, nondistended, normoactive bowel sounds present : COMMON NORMALS: Yes no CVA tenderness BLADDER/KIDNEY EXAM: Yes no CVA tenderness Back/Pelvis: COMMON NORMALS: no CVA tenderness Extremity: COMMON NORMALS: normal to inspection GENERAL: Yes edema (trace edema) OTHER: 1+ pitting edema bilateral lower extremi ties, and edema in left hand Neuro: OTHER: On continuous sedation Skin: COMMON NORMALS: no rashes or lesions noted GENERAL SKIN EXAM: no rashes or lesions noted Data 10/08/24 03:30 10/08/24 03:30 A&P Assessment and plan (1) Pneumonia: Pneumonia of healthcare associated?patient from [facility] - Next of breath with respiratory failure is multifactorial) pneumonia and coronary artery disease - Panculture from blood and urine - Will treat the pneumonia with cefepime to cover the gram-negative and Zyvox to cover MRSA and Vanco - resistant organisms, patient is a prison resident Zyvox its renal friendly - Initiate nebulizing treatment - Continue airway intubation at this time till acidosis is resolved (2) UTI (urinary tract infection): UTI - Patient on antibiotics for pneumonia and this will be able to optimize UTI - Continue antibiotics - Follow culture and sensitivity and optimize accordingly (3) Weakness: Weakness and debility - Bedside PT OT - PT OT consulted to assess and treat (4) Lactic acidosis: Lactic acidosis is significant for tissue injury not of infection Continue to optimize and monitor interval changes (5) Metabolic acidosis: Continue to neutralized the acidosis from tissue injury Bicarb drip x 1 L and reassess (6) Unstable angina: Primary team taking care of this Patient had 2 stent placement in in the main coronary artery Patient was status post 2 stent placement in LAD distribution (7) Peripheral arterial disease with history of revascularization: Patient is with known PVD and had been status post revascularization in the past Continue antiplatelet (8) Respiratory failure: Continue vent management for now Plan Septic shock secondary to UTI and pneumonia (present on admission) - blood culture / growing GNR ? SIRS: Leukocytosis, lactic acid, hypotension, hypoxia ? Continue linezolid and cefepime ? On Levophed; wean as tolerated ? Follow-up blood, sputum and urine cultures Acute hypoxic and hypercapnic respiratory failure Bilateral pneumonia ? Mechanically ventilated ? Wean FiO2 as tolerated ? Monitor O2 sats GIL on CKD stage 3 - baseline creatinine 2.1-2.3 - likely ATN vs contrast-induced nephropathy - s/p cardiac cath on 10/05 - CPK 7153 but unlikely high enough to cause GIL High anion-gap acidosis - lactic acid has improved, likely from GIL - started on sodium bicarb infusion - no need for dialysis at this time Chronic anemia - iron sat 22.8%, ferritin 533 ?10/07: 1 unit of PRBCs given her NSTEMI; hemoglobin has improved NSTEMI ? Critical ostial LAD stenosis status post stents x 2 to the proximal LAD ? Continue aspirin and plavix - holding off statin given elevated CPK Hyponatremia ? Sodium 125 today - follow TSH and cortisol level - monitor PDMP PDMP Reviewed: Not Reviewed Attestations 2 Medical Necessity Statement*: SHe requires continued ICU hospitalization for mechanical ventilation, IV pressors, IV antibiotics, and telemetry monitoring Critical Care Time: Total critical time spent = 50 mins Coding Level of Care Code Acute Code for Chg Fwd Diagnoses Pneumonia J18.9 UTI (urinary tract infection) N39.0 Weakness R53.1 Lactic acidosis E87.20 Metabolic acidosis E87.20 Unstable angina I20.0 Peripheral arterial disease with history of revascularization I73.9; Z98.890 Respiratory failure J96.90
--- NOTE | 2024-10-08 14:46 | P.PN_ITS ---
Documented by User: Olivia Ziegler NP 10/08/24 14:51 Subjective 2 Subjective: Patient still intubated and sedated. Levophed has been weaned to 1 eliza per minute. Vital signs stable at 110/39 with pulse of 71. Vitals/I&O/Wt Last Vital Signs Temp 97.5 F L 10/08/24 03:43 Pulse 71 10/08/24 14:11 Resp 18 10/08/24 14:20 BP 110/39 10/08/24 13:15 Pulse Ox 94 10/08/24 14:20 O2 Del Method Mechanical Ventilation 10/08/24 03:43 O2 Flow Rate 15 10/05/24 20:17 FiO2 30 10/08/24 14:20 10/07/24 10/08/24 10/08/24 22:59 06:59 14:59 Intake Total 986.425 / 1250.546 466.501 / 1717.047 161.696 / 161.696 Output Total 425 / 425 700 / 1125 Balance 561.425 / 825.546 -233.499 / 592.047 161.696 / 161.696 Weight last 48 hrs Weight 138 lb 14.259 oz Weight 117 lb 15.157 oz Physical Exam 2 Narrative: General: Intubated and sedated HENMT: normoceophalic Respiratory: Normal respiratory effort, clear to auscultation bilaterally throughout all lung [place], no use of accessory muscles Cardio: No JVD, regular rate, regular rhythm, S1 S2 normal, no murmurs, peripheral pulses 2+ radial palpated bilaterally Extremities: Full ROM, normal, normal capillary refill, no cyanosis or edema Neuro: Intubated and Sedated Skin: Right femme stick sites clean dry intact well-approximated no signs of hematoma soft Data 10/09/24 05:37 10/09/24 05:37 Micro: Microbiology 10/07/24 15:00 Urine Culture - Preliminary Urine,Clean Catch A&P Assessment and plan (1) Unstable angina: (2) Peripheral arterial disease with history of revascularization: (3) Paroxysmal atrial flutter: (4) Benign hypertension: (5) Chronic kidney disease (CKD): (6) Pneumonia: (7) NSTEMI (non-ST elevated myocardial infarction): Plan Patient had PCI of left main to proximal LAD with 2 stents. On aspirin and Plavix. Echo shows mildly reduced LV systolic function. Creatinine has now increased to 3.1. Has been making some urine. Patient is being seen by nephrology. Appreciate their assistance. Continue to wean off pressors as able. Appropriate to transfuse to keep hgb over 8. hospitalist team is onboard as well. We appreciate their assistance. Medicine team on board for management of medical issues and vent management. Appreciate assistance. Antibiotic therapy for UTI/ pneumonia. PDMP PDMP Reviewed: Not Reviewed Attestations 2 Medical Necessity Statement*: Care expected to cross 2 midnights due to the above defined care. Coding Level of Care Code Acute Code for g Fwd Diagnoses Unstable angina I20.0 Peripheral arterial disease with history of revascularization I73.9; Z98.890 Paroxysmal atrial flutter I48.92 Benign hypertension I10 Chronic kidney disease, unspecified CKD stage N18.9 Chronic kidney disease stage: unspecified stage Pneumonia due to infectious organism, unspecified laterality, unspecified part of lung J18.9 Laterality: unspecified laterality Lung location: unspecified part of lung Pneumonia type: due to unspecified organism NSTEMI (non-ST elevated myocardial infarction) I21.4 Documented by User: Juhi Penn MD 10/09/24 15:43 Data 10/09/24 05:37 10/09/24 05:37 A&P Assessment and plan (1) Unstable angina: (2) Peripheral arterial disease with history of revascularization: (3) Paroxysmal atrial flutter: (4) Benign hypertension: (5) Chronic kidney disease (CKD): (6) Pneumonia: (7) NSTEMI (non-ST elevated myocardial infarction): Plan Patient had PCI of left main to proximal LAD with 2 stents. On aspirin and Plavix. Echo shows mildly reduced LV systolic function. Creatinine has now increased to 3.1. Has been making some urine. Patient is being seen by nephrology. Appreciate their assistance. Continue to wean off pressors as able. Appropriate to transfuse to keep hgb over 8. hospitalist team is onboard as well. We appreciate their assistance. Medicine team on board for management of medical issues and vent management. Appreciate assistance. Antibiotic therapy for UTI/ pneumonia. I SAW PT, EXAMINED, REVIEWED PROGRESS/LAB DATA. OVERALL STABLE CVS STATUS. NOW LEVOPHED WEANED OFF. PT REMAINS INUBATED BUT ON MINIMAL VENT SUPPORT. TO CONTINUE WITH CURRENT MANAGEMENT PLAN. PDMP PDMP Reviewed: Not Reviewed Coding Level of Care Code Acute Code for [facility] Fwd Diagnoses Unstable angina I20.0 Peripheral arterial disease with history of revascularization I73.9; Z98.890 Paroxysmal atrial flutter I48.92 Benign hypertension I10 Chronic kidney disease, unspecified CKD stage N18.9 Chronic kidney disease stage: unspecified stage Pneumonia due to infectious organism, unspecified laterality, unspecified part of lung J18.9 Laterality: unspecified laterality Lung location: unspecified part of lung Pneumonia type: due to unspecified organism NSTEMI (non-ST elevated myocardial infarction) I21.4
[2024-10-08] MEDS: fentaNYL 1,000 MCG/100 ML BAG 5 MCG IV (20:04)
[2024-10-08] MEDS: propofol 1,000 MG/100 ML INJ 4.9 MG IV (22:22)
[2024-10-09] VITALS (163 sets, daily range): BP systolic 115–163; BP diastolic 40–94; PULSE 65–104; RESP 14–20; TEMP 36.9–37.6; O2SAT 86–100
[2024-10-09] MEDS: cefepime 1,000 mg SDV 1000 MG IVP ×2 (00:28→23:57)
[2024-10-09] MEDS: linezolid premix 600 MG/300 ML PREMIX 300 MG IV ×3 (00:28→23:57)
[2024-10-09] MEDS: ipratropium-albuterol 3 mL Neb INHALATION ×4 (01:25→19:58)
--- NOTE | 2024-10-09 03:21 | PC.NURSE ---
Pt very rigid and difficult to reposition. RT consulted about sedation level. Pt not following commands. Sedation titrated (see MAR) in roder to reposition and prevent pt from biting ET tube.
[2024-10-09] MEDS: sodium bicarbonate 150 MEQ in dextrose 5% 1,000 ML 60 MEQ IV (04:09)
--- NOTE | 2024-10-09 05:11 | P.PN_ITS ---
Subjective 2 Subjective: Patient is sedated and on the vent. Family is in the room. Nursing states she has had a rigid posture. Had elevated CK overnight to 9800, up from 7500 previously. Medications: Reviewed: Yes Vitals/I&O/Wt Last Vital Signs Temp 97.5 F L 10/08/24 03:43 Pulse 74 10/09/24 04:00 Resp 14 10/09/24 04:30 BP 120/42 10/09/24 04:00 Pulse Ox 99 10/09/24 04:30 O2 Del Method Mechanical Ventilation 10/09/24 01:25 O2 Flow Rate 15 10/05/24 20:17 FiO2 30 10/09/24 04:30 10/08/24 10/08/24 10/09/24 14:59 22:59 06:59 Intake Total 161.696 / 155.949 8491.675 / 4126.371 1520.308 / 5646.679 Balance 161.696 / 601.498 2479.675 / 4126.371 1520.308 / 5646.679 Weight last 48 hrs Weight 138 lb 14.259 oz Weight 117 lb 15.157 oz Physical Exam 2 Narrative: General: Intubated and sedated. HENMT: normoceophalic Respiratory: Elevated mechanically with rate at about 14. Left lung crackles throughout. Right lung is clear. Cardio: No JVD, regular rate, regular rhythm, S1 S2 normal, no murmurs. Abdomen: Soft, mildly distended. Bowel sounds are hypoactive. Neuro: Intubated and Sedated. Rigid posture with plantar flexion both feet. Data 10/09/24 05:37 10/09/24 05:37 Micro: Microbiology 10/07/24 15:00 Urine Culture - Preliminary Urine,Clean Catch A&P Assessment and plan (1) Pneumonia: (2) UTI (urinary tract infection): (3) Weakness: (4) Lactic acidosis: (5) Metabolic acidosis: (6) Unstable angina: (7) Peripheral arterial disease with history of revascularization: (8) Respiratory failure: Plan 79-year-old female admitted for unstable angina, NSTEMI, s/p LAD stenting x 2, pneumonia, acute respiratory and renal failure. Continue close ICU monitoring. Cardiology and nephrology are both consulted. Creatinine is up to 3.5, from 2.1 on admission and 3.1 yesterday. CK 9800. She appears very dehydrated. She has moist mucous membranes. Start NS at 75 as she is NPO. She was on bicarb infusion but this was discontinued this morning. Remains mechanically ventilated. Oxygen is at 93% currently with FiO2 at 30. She does have a rigid posture with plantarflexion bilaterally. We will try to wean down on her sedation today, and have respiratory attempt to extubate if able. Urine cultures 1/4 from admission growing growing E. coli. Was susceptible to cefepime. Blood cultures are negative to date. Continue cefepime and linezolid for concern of hospital associated pneumonia. Today will be day 4 of antibiotics. Blood pressures remain stable. She is off of Levophed. Hemoglobin up to 9.3 from 7.9 on admission. Anion gap is closing slightly. Liver enzymes are elevated. Sodium is at 126 today, potassium at 3.7. Recheck a.m. labs. Code Status: Full IVF: NS at 75 DVT PPx: Clopidogrel GI PPx: None ABx: Linezolid, Cefepime Diet: NPO Discharge plan: Back to SNF when stable. PDMP PDMP Reviewed: Not Reviewed Attestations 2 Medical Necessity Statement*: Will need continued inpatient monitoring for extubation, respiratory support, cardiology nephrology management of recent STEMI with stenting, and acute kidney injury, treatment of pneumonia and UTI. Coding Level of Care Code Critical Care >/= 30 minutes Critical care time (in minutes): 66 The high probability of a clinically significant, sudden or life threatening deterioration, as referenced in this documentation, required my full and direct attention, intervention and personal management. The critical care time shown is in addition to time spent performing any reported separately billable procedures and includes the following: [x] Data and vital sign review and interpretation [x ] Patient assessment, examination and intervention [x] Medication orders and management [x] Patient/Family updates as able [x] Care Coordination and Documentation. Diagnoses Pneumonia due to infectious organism, unspecified laterality, unspecified part of lung J18.9 Laterality: unspecified laterality Lung location: unspecified part of lung Pneumonia type: due to unspecified organism UTI (urinary tract infection) N39.0 Weakness R53.1 Lactic acidosis E87.20 Metabolic acidosis E87.20 Unstable angina I20.0 Peripheral arterial disease with history of revascularization I73.9; Z98.890 Respiratory failure J96.90
[2024-10-09] MEDS: fentaNYL 1,000 MCG/100 ML BAG 10 MCG IV (05:16)
[2024-10-09 05:45] LABS: Basophils % 0.5 %; Eosinophils # 0.1 10^3/uL (0.0-0.8); Eosinophils % 0.8 %; Hematocrit 27.6 % (36-47); Lymphocytes # 0.3 10^3/uL (0.8-4.8); Lymphocytes % 3.6 %; Mean Corpuscular HGB Conc 33.7 g/dL (30-55); Mean Corpuscular Hemoglobin 29.4 pg (27-33); Mean Corpuscular Volume 87.3 fl (85-98); Mean Platelet Volume 12.2 fL (7.4-10.4); Monocytes # 0.4 10^3/uL (0.2-0.9); Monocytes % 5.4 %; Neutrophils # 6.73 10^3/uL (1.8-7.7); Nucleated Red Blood Cells % 0 %; Platelet Count 184 10^3/cmm (157-399); Red Blood Count 3.16 10^6/uL (3.85-5.65); Red Cell Distribution Width 14.3 % (12.1-15.1); White Blood Count 7.56 10^3/uL (3.29-11.43)
[2024-10-09 06:03] LABS: Alanine Aminotransferase 57 U/L (0-33); Albumin Level 2.1 g/dL (3.5-5.2); Alkaline Phosphatase 98 U/L (35-105); Anion Gap 20.7 (5-19); Aspartate Amino Transferase 170 U/L (0-32); Blood Urea Nitrogen 51 mg/dL (8-23); Calcium 6.5 mg/dL (8.5-10.5); Carbon Dioxide 22 mmol/L (22-29); Chloride 87 mmol/L (98-107); Globulin 3.3 g/dL (1.3-4.6); Glucose 109 mg/dL (65-115); Magnesium 1.6 mg/dL (1.7-2.3); Osmolality Calculated 276 mOsm/kg (285-295); Phosphorus 7.3 mg/dL (2.5-4.5); Potassium 3.7 mmol/L (3.5-5.1); Sodium 126 mmol/L (136-145); Total Bilirubin 0.3 mg/dL (0.15-1.2); Total Protein 5.4 g/dL (6.6-8.7)
[2024-10-09 06:17] LABS: Creatine Phosphokinase 9831 U/L (26-192)
[2024-10-09] MEDS: propofol 1,000 MG/100 ML INJ 11.43 MG IV (06:30)
[2024-10-09 08:09] LABS: Anti-Double Strand DNA AB 6 IU/mL
--- NOTE | 2024-10-09 09:15 | P.PN_ITS ---
Subjective 2 Subjective: The patient remains intubated sedated not on pressors. Current vent settings FiO2 of 30%, tidal volumes 400 respiratory to 16 and PEEP of 8. Unable to obtain a review of systems Medications: Reviewed: Yes Medication Review Details: Current Medications Acetaminophen (Acetaminophen 325 Mg Tablet) 650 mg PO Q6H PRN PRN Reason: MILD PAIN Albuterol/Ipratropium (Ipratropium-Albuterol 3 Ml Neb) 3 ml INHALATION Q6H.RESP TABATHA Last Admin: 10/09/24 08:00 Dose: 3 ml Alprazolam (Alprazolam 0.5 Mg Tablet) 0.25 mg PO TID PRN PRN Reason: ANXIETY Aspirin (Aspirin 81 Mg Ec Tablet) 81 mg PO DAILY TABATHA Last Admin: 10/08/24 08:51 Dose: 81 mg Atropine Sulfate (Atropine 1 Mg/Ml Sdv 1 Ml) 0.5 mg IVP PRN PRN PRN Reason: Symptomatic bradycardia Cefepime HCl (Cefepime 1,000 Mg Sdv) 1,000 mg IVP Q24H TABATHA; Protocol Last Admin: 10/09/24 00:28 Dose: 1,000 mg Clopidogrel Bisulfate (Clopidogrel 75 Mg Tablet) 75 mg PO DAILY TABATHA Last Admin: 10/08/24 08:51 Dose: 75 mg Fentanyl (Fentanyl 50 Mcg/Ml Inj 2ml) 50 mcg IVP PRN PRN PRN Reason: PAIN Fentanyl (Sublimaze) 1,000 mcg in 100 mls @ 0 mls/hr IV .Q0M TABATHA; Protocol Last Titration: 10/09/24 07:45 Dose: 75 mcg/hr, 7.5 mls/hr Propofol (Diprivan) 1,000 mg in 100 mls @ 0 mls/hr IV .Q0M TABATHA; Protocol Last Admin: 10/09/24 06:30 Dose: 35 mcg/kg/min, 11.43 mls/hr Norepinephrine Bitartrate (Levophed) 4 mg in 250 mls @ 0 mls/hr IV .Q0M TABATHA; Protocol Last Titration: 10/08/24 19:00 Dose: 0 mcg/min, 0 mls/hr Linezolid (Zyvox Premix) 600 mg in 300 mls @ 300 mls/hr IV Q12H TABATHA; Protocol Last Infusion: 10/09/24 01:54 Dose: Infused Sodium Bicarbonate 150 meq/ (Dextrose) 1,150 mls @ 60 mls/hr IV .[id number] TABATHA Last Admin: 10/09/24 04:09 Dose: 60 mls/hr Magnesium Hydroxide (Magnesium Hydroxide 30 Ml Udc) 30 ml PO DAILY PRN PRN Reason: CONSTIPATION Naloxone HCl (Naloxone 0.4 Mg/Ml Sdv) 0.1 mg IVP Q2M PRN PRN Reason: RESPIRATORY RATE < 8/MIN Nitroglycerin (Nitroglycerin 0.4 Mg Sublingual Tablet) 0.4 mg SUBLINGUAL Q5M PRN PRN Reason: CHEST PAIN Temazepam (Temazepam 15 Mg Capsule) 15 mg PO BEDTIME PRN PRN Reason: INSOMNIA Vitals/I&O/Wt Last Vital Signs Temp 97.5 F L 10/08/24 03:43 Pulse 78 10/09/24 08:30 Resp 14 10/09/24 08:00 BP 133/47 10/09/24 08:30 Pulse Ox 93 10/09/24 08:30 O2 Del Method Mechanical Ventilation 10/09/24 08:30 O2 Flow Rate 15 10/05/24 20:17 FiO2 30 10/09/24 08:30 10/08/24 10/09/24 10/09/24 22:59 06:59 14:59 Intake Total 3964.675 / 4126.371 1635.805 / 5762.176 24.833 / 24.833 Output Total 150 / 150 Balance 3964.675 / 4126.371 1485.805 / 5612.176 24.833 / 24.833 Weight last 48 hrs Weight 63 kg Weight 63 kg Physical Exam 2 Narrative: The patient is intubated. Her vent settings are Fio2 30% tidal volumes 400 respiratory rate of 14 PEEP 6. HEENT normocephalic atraumatic neck is supple lungs- b/l coarse breath sounds Heart is regular. Abdomen is soft positive bowel sounds Extremities do not have edema. Neuro sedated. 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 Patient's creatinine has been rising over the last couple years from 1.5 to 2.1 mg/dL. Patient presented after recent antibiotic and is now here with presumed utI plus minus pneumonia and non-ST elevation FL. Patient had significant hypotension on October 05, 2024 went to [facility] and had stents in contrast. 1. CKD stage IV baseline creatinine 2 mg/dL is presumed diabetic hypertensive. Will also send serum protein electrophoresis, there was normal in 2023. -She does not have significant proteinuria on urinalysis making diabetic nephropathy less typical here. 2. Acute kidney injury in this patient is likely ATN versus contrast-induced GIL. Patient had significant hypotension required significant amount of contrast on 10/05. The timeline is appropriate for contrast-induced GIL?as she was high risk on an ARB and hypotensive and infected. - avoid nephrotoxins. -normal complements - CPK 7153- sudhakar to 9831. unlikely high enough ck to cause GIL. -u/a- 3+ blood, 1+ prot, 21-50 rbc- will send serologies to rule out a renal pulmonary syndrome UPCR 08/26 UACR 90 -low ur na c/w prerenal azotemia- check w/ ivf -CT of her abdomen did not show any hydronephrosis but did appear to have chronic kidney disease. - no emergent need for dialysis. however, if she cant be extubated, then we can dialyze her to help remove fluids -stop ivf. give bumex/ furosemide as needed 3. Pt has a high AG metabolic acidosis w/ resp compensation- AG of 17 and low albumin =[place] improved to 2.1 -likely from GIL - no emergent need for dialysis 4. anemia- hgb stable she received epo x 1 -iron sat 22.8%, ferritin 533 5. Hyponatremia- low ur na normal TSH and cortisol level. Free water restrict. Acute kidney injury can cause hyponatremia heart failure clinic this afternoon 6. hyperphosphatemia- monitor phos PTH 289.7 replace vit d - her level is 8 please dose all meds for GFR <5 7. Pneumonia -renal dose abx The patient was seen and examined with the aid of a nurse using audiovisual equipment. Case discussed in detail with patient's nurse and her son. he consdents to telehealth and dialysis as needed Plan See above. PDMP PDMP Reviewed: Not Reviewed Attestations 2 Medical Necessity Statement*: anuric gil, vdrf, pna, recent [place] Time Spent in Patient Care: Greater than 35 minutes (>than 50% of time spent in counselling and/or direct pt care on unit) . Coding Level of Care Code Acute Code for Chg Fwd Diagnoses Acute kidney injury superimposed on CKD N17.9; N18.9
--- NOTE | 2024-10-09 09:26 | PC.NURSE ---
Discussed with Dr. Chavarria at bedside weaning sedation and plans for vent weaning trial. See MAR for sedation decrease.
[2024-10-09] MEDS: clopidogrel 75 mg Tablet PO (09:42)
[2024-10-09] MEDS: aspirin 81 mg EC Tablet PO (09:42)
[2024-10-09] MEDS: sodium chloride 0.9% 1,000 ML 75 ML IV ×2 (10:39→23:35)
--- NOTE | 2024-10-09 16:22 | P.PN_ITS ---
Subjective 2 Subjective: I saw the patient, examined, reviewed current lab data, progress during last 24 hours. Patient is remain intubated however she is now off sedation and on minimal vent support. She is off inotropes since yesterday and maintaining her blood pressure and heart rate. Noted vitals have improved however some worsening of renal labs likely secondary to dehydration. Medications: Medication Review Details: Current medication reviewed Vitals/I&O/Wt Last Vital Signs Temp 98.4 F 10/09/24 12:00 Pulse 104 H 10/09/24 16:00 Resp 20 H 10/09/24 14:03 BP 147/57 10/09/24 16:00 Pulse Ox 97 10/09/24 16:00 O2 Del Method Mechanical Ventilation 10/09/24 16:00 O2 Flow Rate 15 10/05/24 20:17 FiO2 30 10/09/24 14:03 10/09/24 10/09/24 10/09/24 06:59 14:59 22:59 Intake Total 1635.805 / 5762.176 772.596 / 772.596 Output Total 150 / 150 100 / 100 Balance 1485.805 / 5612.176 672.596 / 672.596 Weight last 48 hrs Weight 138 lb 14.259 oz Weight 138 lb 14.259 oz Physical Exam 2 Const: OTHER: Patient is on vent with no station currently. She opens eyes with verbal command. HENMT: OTHER: On ventilator Resp: OTHER: Reduced air entry at the bases bilaterally with minimal coarse rales Cardio: OTHER: Normal 1st and 2nd heart sounds. No added sounds. GI: OTHER: Abdomen is soft bowel sounds audible Extremity: NARRATIVE EXTREMITY EXAM: No lower extremity edema. Neuro: OTHER: Patient is on ventilator Skin: NARRATIVE SKIN EXAM: Skin well-perfused warm and dry Data 10/09/24 05:37 10/09/24 05:37 Micro: Microbiology 10/07/24 15:00 Urine Culture - Final Urine,Clean Catch A&P Assessment and plan (1) NSTEMI (non-ST elevated myocardial infarction): (2) Respiratory failure: (3) Acute kidney injury superimposed on CKD: Plan 79-year-old female patient status post urgent PCI of left main into LAD for acute IL. Clinically overall cardiovascular status is much more stable however she remains intubated and on ventilator with minimal support. Clinically no active signs of ischemia. Clinically no heart failure and in fact patient appears to be dry. Improvement of white cells count to normal now. Patient is of inotropic support and maintaining her blood pressure very well Noted some worsening of her renal profile, likely due to dehydration. Plan: Agree with the gentle IV hydration To start her on low-dose of beta-koby, metoprolol 12.5 twice a day and increase the dose depending on heart rate and blood pressure To continue rest of medications PDMP PDMP Reviewed: Not Reviewed Attestations 2 Medical Necessity Statement*: Acute IL, acute respiratory failure, patient on ventilator Coding Level of Care Code 77497 Diagnoses NSTEMI (non-ST elevated myocardial infarction) I21.4 Respiratory failure J96.90 Acute kidney injury superimposed on CKD N17.9; N18.9 Time Spent (min) 25
[2024-10-09] MEDS: metoprolol tartrate 25 mg Tablet 12.5 MG PO ×2 (16:28→20:49)
[2024-10-10] VITALS (335 sets, daily range): BP systolic 130–190; BP diastolic 41–87; PULSE 73–99; RESP 21–24; TEMP 36.8–37.7; O2SAT 86–100; BMI 24.4
--- NOTE | 2024-10-10 00:16 | PC.NURSE ---
Provider notified of worsening lung sounds since shift change, including significant increase in bilateral crackles, worsening expiratory wheezing, as well as only approximately 50ml output.
[2024-10-10] MEDS: ipratropium-albuterol 3 mL Neb INHALATION ×4 (02:56→19:52)
--- NOTE | 2024-10-10 04:41 | PC.NURSE ---
Patient still very rigid but attempted ROM movements throughout the shift. This morning patient grimaced when attempting to move legs. Patient not responding to, or following, verbal commands. No sedation or levophed used through the night.
[2024-10-10 05:35] LABS: Basophils # 0.1 10^3/uL (0.0-0.1); Basophils % 0.7 %; Eosinophils # 0.1 10^3/uL (0.0-0.8); Eosinophils % 0.9 %; Hematocrit 31.1 % (36-47); Lymphocytes # 0.3 10^3/uL (0.8-4.8); Lymphocytes % 3.6 %; Mean Corpuscular HGB Conc 32.8 g/dL (30-55); Mean Corpuscular Hemoglobin 28.9 pg (27-33); Mean Corpuscular Volume 88.1 fl (85-98); Mean Platelet Volume 12.2 fL (7.4-10.4); Monocytes # 0.4 10^3/uL (0.2-0.9); Monocytes % 4.9 %; Neutrophils # 7.47 10^3/uL (1.8-7.7); Neutrophils % 88.5 %; Nucleated Red Blood Cells % 0 %; Platelet Count 165 10^3/cmm (157-399); Red Blood Count 3.53 10^6/uL (3.85-5.65); White Blood Count 8.44 10^3/uL (3.29-11.43)
[2024-10-10 05:52] LABS: Alanine Aminotransferase 63 U/L (0-33); Albumin Level 2.3 g/dL (3.5-5.2); Alkaline Phosphatase 102 U/L (35-105); Anion Gap 26.1 (5-19); Aspartate Amino Transferase 203 U/L (0-32); Blood Urea Nitrogen 57 mg/dL (8-23); Calcium 6.6 mg/dL (8.5-10.5); Carbon Dioxide 17 mmol/L (22-29); Chloride 88 mmol/L (98-107); Globulin 3.7 g/dL (1.3-4.6); Glucose 78 mg/dL (65-115); Magnesium 1.6 mg/dL (1.7-2.3); Osmolality Calculated 279 mOsm/kg (285-295); Potassium 4.1 mmol/L (3.5-5.1); Sodium 127 mmol/L (136-145); Total Bilirubin 0.4 mg/dL (0.15-1.2)
[2024-10-10 06:01] LABS: Phosphorus 7.7 mg/dL (2.5-4.5)
--- NOTE | 2024-10-10 06:10 | PC.NURSE ---
Provider notified of patients critical phosphorus lab. No new orders at this time.
--- NOTE | 2024-10-10 07:23 | P.PN_ITS ---
Subjective 2 Subjective: Sedation reduced yesterday and has been off overnight. Still very sedate. Able to open her eyes briefly, and appears to attempt to follow up simple commands, but is questionable. Phos increased overnight to 7.7. Had more urine output overnight. Reported 500 out, but yesterday report overnight was 150. Medications: Reviewed: Yes Vitals/I&O/Wt Last Vital Signs Temp 98.8 F 10/10/24 04:08 Pulse 88 10/10/24 05:33 Resp 22 H 10/10/24 03:00 BP 152/62 10/10/24 04:08 Pulse Ox 100 10/10/24 04:08 O2 Del Method Mechanical Ventilation 10/10/24 02:57 O2 Flow Rate 15 10/05/24 20:17 FiO2 30 10/10/24 03:00 10/09/24 10/10/24 10/10/24 22:59 06:59 14:59 Intake Total 40 / 888.322 2868 / 2112.596 Output Total 100 / 200 300 / 500 Balance -60 / 944.320 9832 / 1612.596 Weight last 48 hrs Weight 137 lb 12.623 oz Weight 138 lb 14.259 oz Physical Exam 2 Narrative: General: Intubated and sedated. HENMT: normoceophalic Respiratory: Lung crackles at the L lung base, otherwise fairly clear. Right lung is clear. Cardio: No JVD, regular rate, regular rhythm, S1 S2 normal, no murmurs. Abdomen: Soft, mildly distended. Bowel sounds are hypoactive. Neuro: Intubated, obtunded. Plantar flexed posture the feet bilaterally. Able to open eyes and track when verbally prompted. Data 10/10/24 04:58 10/10/24 04:58 Micro: Microbiology 10/07/24 15:00 Urine Culture - Final Urine,Clean Catch A&P Assessment and plan (1) Pneumonia: (2) UTI (urinary tract infection): (3) Weakness: (4) Lactic acidosis: (5) Metabolic acidosis: (6) Unstable angina: (7) Peripheral arterial disease with history of revascularization: (8) Respiratory failure: Plan 79-year-old female admitted for unstable angina, NSTEMI, s/p LAD stenting x 2, pneumonia, acute respiratory and renal failure. Continue close ICU monitoring. Cardiology and nephrology are both consulted. Creatinine holding today at 3.5. Phos high now at 7.7, up from 7.4 yesterday. She did start to make more urine yesterday and overnight. approximately 500 out overnight, up from 150 night before. Still appears very dry. MMM. Discussed with cardiology yesterday briefly. Will switch to D5NS for calories. Na is up slightly from yesterday to 127. ABG this morning appeared improved. Remains mechanically ventilated, but has been on pressure support only. Sats are maintaining. Order chest xr today. She does have a rigid posture with plantarflexion bilaterally. May be from electrolyte abnormalities. May consider CT head tomorrow if she remains altered. Urine cultures 1/4 from admission growing growing E. coli. Was susceptible to cefepime. Blood cultures are negative to date. Continue cefepime and linezolid for concern of hospital associated pneumonia. Today will be day 5 of antibiotics. Will need at least a 7 day course. Blood pressures remain stable. Off pressors. Leukocytosis resolved. Liver enzymes more elevated today, Bilirubin normal. Recheck labs in am. Recheck BMP later today. Heparin for VTE prophylaxis. Code Status: Full IVF: DNS at 100 DVT PPx: heparin GI PPx: holding currently due to GIL. ABx: Linezolid, Cefepime Diet: NPO Discharge plan: Back to SNF when stable. PDMP PDMP Reviewed: Not Reviewed Attestations 2 Medical Necessity Statement*: Will need continued inpatient monitoring for extubation, respiratory support, cardiology nephrology management of recent STEMI with stenting, and acute kidney injury, treatment of pneumonia and UTI. Coding Level of Care Code Critical Care >/= 30 minutes Critical care time (in minutes): 72 The high probability of a clinically significant, sudden or life threatening deterioration, as referenced in this documentation, required my full and direct attention, intervention and personal management. The critical care time shown is in addition to time spent performing any reported separately billable procedures and includes the following: [x] Data and vital sign review and interpretation [x ] Patient assessment, examination and intervention [x] Medication orders and management [x] Patient/Family updates as able [x] Care Coordination and Documentation. Diagnoses Pneumonia due to infectious organism, unspecified laterality, unspecified part of lung J18.9 Laterality: unspecified laterality Lung location: unspecified part of lung Pneumonia type: due to unspecified organism UTI (urinary tract infection) N39.0 Weakness R53.1 Lactic acidosis E87.20 Metabolic acidosis E87.20 Unstable angina I20.0 Peripheral arterial disease with history of revascularization I73.9; Z98.890 Respiratory failure J96.90 Time Spent (min) 72
[2024-10-10] MEDS: dextrose 5%-sod chloride 0.9% 1,000 ML 100 ML IV (08:15)
[2024-10-10] MEDS: clopidogrel 75 mg Tablet PO (08:17)
[2024-10-10] MEDS: aspirin 81 mg EC Tablet PO (08:17)
[2024-10-10] MEDS: metoprolol tartrate 25 mg Tablet 12.5 MG PO ×2 (08:17→20:20)
--- NOTE | 2024-10-10 08:18 | XRR_ITS ---
PROCEDURE INFORMATION: Exam: XR Chest Exam date and time: 10/10/2024 11:03 AM Age: 79 years old Clinical indication: Shortness of breath; On vent; Additional info: Pneumonia TECHNIQUE: Imaging protocol: Radiologic exam of the chest. Views: 1 view. COMPARISON: CR XR chest 1V portable [id number] 10/07/2024 1:11 PM FINDINGS: Tubes, catheters and devices: The endotracheal tube has its tip well-positioned within the trachea. The nasogastric tube has its tip within the stomach. Lungs: Hazy infiltrates are noted throughout both lungs. Pleural spaces: Unremarkable. No pleural effusion. No pneumothorax. Heart/Mediastinum: Unremarkable. No cardiomegaly. Bones/joints: Unremarkable. XR/XR chest 1V portable [id number] IMPRESSION: Persistent and stable bilateral pulmonary infiltrates
[2024-10-10 08:49] LABS: ABG PCO2 29.7 mmHg (35-45); ABG PH Result 7.41 (7.35-7.45); Alveolar-Arterial Oxygen Gradi 13.2 mmHg (5-10); Arterial Blood Gas Hematocrit 30.1 % (37-47); Base Excess ABG -4.8 mmol/L (-2.0-2.0); Blood Gas Allen Test Pos; Blood Gas Operator Identificat BROMA; Blood Gas Sample Site Radial, left; Blood Gas Sample Type Arterial; Carboxyhemoglobin 1.2 %THgb (0.4-20.1); HGB O2 Sat 92.1 % (95-100); Ionized Calcium Level - ABG 0.9 mmol/L (1.1-1.4); Methemoglobin 1.3 % (0.4-1.5); Oxygen Device VENT; Oxygen Saturation ABG 94.4; PO2 ABG 74.9 mmHg (80.0-100.0); PO2 FiO2 Ratio Arterial Blood 249; Potassium Level - ABG 3.8 mmol/L (3.5-5.0); Total Hemoglobin 9.8 g/dL (12-16)
[2024-10-10] MEDS: heparin 5,000 unit/mL INJ 1 mL 5000 UNIT SUBCUT ×2 (09:35→20:21)
--- NOTE | 2024-10-10 10:14 | PM.PN ---
Subjective Subjective: Seen and examined. Patient is not interactive. Patient still remains intubated not on pressors. Patient has started to urinate Medications: Reviewed: Yes Medication Review Details: Current Medications Acetaminophen (Acetaminophen 325 Mg Tablet) 650 mg PO Q6H PRN PRN Reason: MILD PAIN Albuterol/Ipratropium (Ipratropium-Albuterol 3 Ml Neb) 3 ml INHALATION Q6H.RESP [facility] Last Admin: 10/10/24 07:36 Dose: 3 ml Aspirin (Aspirin 81 Mg Ec Tablet) 81 mg PO DAILY [facility] Last Admin: 10/10/24 08:17 Dose: 81 mg Atropine Sulfate (Atropine 1 Mg/Ml Sdv 1 Ml) 0.5 mg IVP PRN PRN PRN Reason: Symptomatic bradycardia Cefepime HCl (Cefepime 1,000 Mg Sdv) 1,000 mg IVP Q24H [facility]; Protocol Last Admin: 10/09/24 23:57 Dose: 1,000 mg Clopidogrel Bisulfate (Clopidogrel 75 Mg Tablet) 75 mg PO DAILY [facility] Last Admin: 10/10/24 08:17 Dose: 75 mg Heparin Sodium (Porcine) (Heparin 5,000 Unit/Ml Inj 1 Ml) 5,000 unit SUBCUT Q12H [facility] Last Admin: 10/10/24 09:35 Dose: 5,000 unit Propofol (Diprivan) 1,000 mg in 100 mls @ 0 mls/hr IV .Q0M [facility]; Protocol Last Titration: 10/09/24 10:03 Dose: 0 mcg/kg/min, 0 mls/hr Norepinephrine Bitartrate (Levophed) 4 mg in 250 mls @ 0 mls/hr IV .Q0M [facility]; Protocol Last Titration: 10/08/24 19:00 Dose: 0 mcg/min, 0 mls/hr Linezolid (Zyvox Premix) 600 mg in 300 mls @ 300 mls/hr IV Q12H [facility]; Protocol Last Infusion: 10/10/24 01:07 Dose: Infused Dextrose/Sodium Chloride (Dextrose 5%-Sod Chloride 0.9%) 1,000 mls @ 100 mls/hr IV .Q10H [facility] Last Admin: 10/10/24 08:15 Dose: 100 mls/hr Lanolin (Lanolin Oint 7 Gm) 1 applic TOPICAL PRN PRN PRN Reason: DRYNESS Magnesium Hydroxide (Magnesium Hydroxide 30 Ml Udc) 30 ml PO DAILY PRN PRN Reason: CONSTIPATION Metoprolol Tartrate (Metoprolol Tartrate 25 Mg Tablet) 12.5 mg PO BID@0900,2100 [facility] Last Admin: 10/10/24 08:17 Dose: 12.5 mg Naloxone HCl (Naloxone 0.4 Mg/Ml Sdv) 0.1 mg IVP Q2M PRN PRN Reason: RESPIRATORY RATE < 8/MIN Nitroglycerin (Nitroglycerin 0.4 Mg Sublingual Tablet) 0.4 mg SUBLINGUAL Q5M PRN PRN Reason: CHEST PAIN Vitals/I&O/Wt Last Vital Signs Temp 99.7 F H 10/10/24 08:26 Pulse 96 10/10/24 08:30 Resp 23 H 10/10/24 07:36 BP 144/57 10/10/24 08:30 Pulse Ox 93 10/10/24 08:30 O2 Del Method Mechanical Ventilation 10/10/24 08:30 O2 Flow Rate 15 10/05/24 20:17 FiO2 30 10/10/24 08:00 10/09/24 10/10/24 10/10/24 22:59 06:59 14:59 Intake Total 40 / 591.891 2408 / 2112.596 40 / 40 Output Total 100 / 200 300 / 500 Balance -60 / 974.545 0613 / 1612.596 40 / 40 Weight last 48 hrs Weight 62.5 kg Weight 63 kg Physical Exam Narrative: The patient is intubated. Her vent settings are Fio2 30% tidal volumes 400 respiratory rate of 14 PEEP 6. HEENT normocephalic atraumatic neck is supple lungs- dec crackles Heart is regular. Abdomen is soft positive bowel sounds Extremities do not have edema. 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 Patient's creatinine has been rising over the last couple years from 1.5 to 2.1 mg/dL. Patient presented after recent antibiotic and is now here with presumed utI plus minus pneumonia and non-ST elevation [place]. Patient had significant hypotension on October 05, 2024 went to the [facility] and had stents in contrast. 1. CKD stage IV baseline creatinine 2 mg/dL is presumed diabetic hypertensive. Will also send serum protein electrophoresis, there was normal in 2023. -She does not have significant proteinuria on urinalysis making diabetic nephropathy less typical here. 2. Acute kidney injury in this patient is likely ATN versus contrast-induced GIL. Patient had significant hypotension required significant amount of contrast on 10/05. The timeline is appropriate for contrast-induced GIL?as she was high risk on an ARB and hypotensive and infected. - avoid nephrotoxins. -normal complements - CPK 7153- sudhakar to 9831. unlikely high enough ck to cause GIL. -u/a- 3+ blood, 1+ prot, 21-50 rbc- will send serologies to rule out a renal pulmonary syndrome UPCR 08/26 UACR 90 -low ur na c/w prerenal azotemia- check w/ ivf -CT of her abdomen did not show any hydronephrosis but did appear to have chronic kidney disease. - no emergent need for dialysis. however, if she cant be extubated, then we can dialyze her to help remove fluids -stop ivf. give bumex/ furosemide as needed 3. Pt has a resp alkalosis and inc AG metabolic acidosis from GIL =[place] improved to 2.1 -likely from GIL - no emergent need for dialysis 4. anemia- hgb stable she received epo x 1 -iron sat 22.8%, ferritin 533 5. Hyponatremia- low ur na normal TSH and cortisol level. Free water restrict. Acute kidney injury can cause hyponatremia heart failure clinic this afternoon 6. hyperphosphatemia- monitor phos PTH 289.7 replace vit d - her level is 8 please dose all meds for GFR <5 7. Pneumonia -renal dose abx The patient was seen and examined with the aid of a nurse using audiovisual equipment. Case discussed in detail with patient's nurse and her son. he consdents to telehealth and dialysis as needed Plan See above. PDMP PDMP Reviewed: Not Reviewed Attestations Medical Necessity Statement*: gil, vdrf Time Spent in Patient Care: Greater than 35 minutes (>than 50% of time spent in counselling and/or direct pt care on unit). Coding Level of Care Code Acute Code for Chg Fwd Diagnoses Acute kidney injury superimposed on CKD N17.9; N18.9
[2024-10-10] MEDS: linezolid premix 600 MG/300 ML PREMIX 300 MG IV ×2 (12:19→23:07)
--- NOTE | 2024-10-10 12:27 | PC.NURSE ---
Waste of remaining Fentalyl and Propofol witnessed by JESSENIA Berry.
[2024-10-10 12:39] LABS: Anion Gap 24.6 (5-19); Blood Urea Nitrogen 57 mg/dL (8-23); Calcium 6.9 mg/dL (8.5-10.5); Carbon Dioxide 19 mmol/L (22-29); Chloride 92 mmol/L (98-107); Glucose 104 mg/dL (65-115); Osmolality Calculated 288 mOsm/kg (285-295); Potassium 4.6 mmol/L (3.5-5.1); Sodium 131 mmol/L (136-145)
[2024-10-10] MEDS: labetalol 5 mg/mL SDV 20mL 20 MG IVP (13:34)
[2024-10-10] MEDS: lanolin oint 7 gm 1 APPLIC TOPICAL ×2 (14:19→18:08)
--- NOTE | 2024-10-10 17:59 | P.PN_ITS ---
Subjective 2 Subjective: I saw the patient today, examined, reviewed current lab data, progress overnight. Patient remained intubated however she is now off sedation and on minimal vent support. BP is good off inotropes x 48 hrs. Heart rate is better today on low-dose of metoprolol. She opens eyes with verbal command, however as per ICU team patient still not awake enough to be extubated. Medications: Medication Review Details: Medications reviewed and adjusted. Vitals/I&O/Wt Last Vital Signs Temp 98.2 F 10/10/24 12:02 Pulse 80 10/10/24 16:28 Resp 21 H 10/10/24 17:00 BP 163/66 10/10/24 16:28 Pulse Ox 98 10/10/24 17:00 O2 Del Method Mechanical Ventilation 10/10/24 16:28 O2 Flow Rate 15 10/05/24 20:17 FiO2 30 10/10/24 17:00 10/10/24 10/10/24 10/10/24 06:59 14:59 22:59 Intake Total 1300 / 2112.596 640 / 640 Output Total 300 / 500 300 / 300 Balance 1000 / 1612.596 340 / 340 Weight last 48 hrs Weight 137 lb 12.623 oz Weight 138 lb 14.259 oz Physical Exam 2 Const: OTHER: Patient intubated and on ventilator. Vitals are stable HENMT: OTHER: Patient intubated Resp: OTHER: Good air entry bilaterally. Mild coarse Rales bilaterally. Cardio: OTHER: Normal 1st and 2nd heart sounds. No added sounds. GI: OTHER: Abdomen soft nontender. Bowel sounds audible Extremity: NARRATIVE EXTREMITY EXAM: No lower extremity edema. Neuro: OTHER: Patient on ventilator. Skin: NARRATIVE SKIN EXAM: Warm and dry. Data 10/10/24 04:58 10/10/24 11:56 A&P Assessment and plan (1) NSTEMI (non-ST elevated myocardial infarction): (2) Acute kidney injury superimposed on CKD: (3) Respiratory failure: Plan 79-year-old female patient with an acute SD, status post left main to LAD PCI. Patient will improved from cardiovascular point of view she is off inotropic support however she remains on the ventilator primarily because of respiratory failure. Clinically no active angina and she is euvolemic The renal profile is now static with elevated creatinine. Overall the clinical status has improved during the last 48 hours. Plan to continue current management she is on DAPT and low-dose of beta-koby. IV antibiotics and other systemic management as per ICU team. PDMP PDMP Reviewed: Not Reviewed Attestations 2 Medical Necessity Statement*: Acute SD Respiratory failure Acute on chronic renal failure Coding Level of Care Code 03668 Diagnoses NSTEMI (non-ST elevated myocardial infarction) I21.4 Acute kidney injury superimposed on CKD N17.9; N18.9 Respiratory failure J96.90 Time Spent (min) 25
--- NOTE | 2024-10-10 18:15 | PC.NURSE ---
Shift note: Patient remains on ventilator in CPAP mode. Opens eyes to verbal command, slight movement of extremities. Patient does have cough and gag reflexes. Weeping edema bilateral upper extremities. One small bowel movement, 500ml urine out. Patient has peeling skin and blanchable area on left buttock, pressure relief dressing applied.
[2024-10-10] MEDS: methylPREDNISolone sod succ 40 mg/mL INJ 60 MG IVP (19:07)
[2024-10-10] MEDS: hyDRALAzine 20 mg/mL INJ 1 mL 10 MG IVP (20:46)
[2024-10-10] MEDS: cefepime 1,000 mg SDV 1000 MG IVP (23:07)
[2024-10-10] MEDS: dextrose 5%-sod chloride 0.9% 1,000 ML 30 ML IV (23:08)
[2024-10-11] VITALS (308 sets, daily range): BP systolic 135–199; BP diastolic 52–95; PULSE 75–102; RESP 17–26; TEMP 37.1–38; O2SAT 93–100
[2024-10-11] MEDS: ipratropium-albuterol 3 mL Neb INHALATION ×4 (02:08→19:33)
[2024-10-11 04:21] LABS: Basophils # 0.1 10^3/uL (0.0-0.1); Basophils % 0.6 %; Eosinophils % 0.2 %; Hematocrit 28.2 % (36-47); Lymphocytes # 0.2 10^3/uL (0.8-4.8); Lymphocytes % 2.1 %; Mean Corpuscular Hemoglobin 29.2 pg (27-33); Mean Corpuscular Volume 88.7 fl (85-98); Mean Platelet Volume 12.1 fL (7.4-10.4); Monocytes # 0.3 10^3/uL (0.2-0.9); Monocytes % 3.5 %; Neutrophils # 8.98 10^3/uL (1.8-7.7); Neutrophils % 92.6 %; Nucleated Red Blood Cells % 0 %; Platelet Count 143 10^3/cmm (157-399); Red Blood Count 3.18 10^6/uL (3.85-5.65); Red Cell Distribution Width 13.9 % (12.1-15.1)
[2024-10-11 04:38] LABS: Alanine Aminotransferase 62 U/L (0-33); Albumin Level 1.9 g/dL (3.5-5.2); Alkaline Phosphatase 84 U/L (35-105); Aspartate Amino Transferase 183 U/L (0-32); Blood Urea Nitrogen 58 mg/dL (8-23); Carbon Dioxide 14 mmol/L (22-29); Chloride 90 mmol/L (98-107); Globulin 3.5 g/dL (1.3-4.6); Glucose 147 mg/dL (65-115); Magnesium 1.6 mg/dL (1.7-2.3); Osmolality Calculated 281 mOsm/kg (285-295); Phosphorus 7.3 mg/dL (2.5-4.5); Sodium 126 mmol/L (136-145); Total Bilirubin 0.3 mg/dL (0.15-1.2); Total Protein 5.4 g/dL (6.6-8.7)
[2024-10-11] MEDS: clopidogrel 75 mg Tablet PO (07:58)
[2024-10-11] MEDS: heparin 5,000 unit/mL INJ 1 mL 5000 UNIT SUBCUT ×2 (07:58→20:50)
[2024-10-11] MEDS: metoprolol tartrate 25 mg Tablet 12.5 MG PO (07:58)
[2024-10-11] MEDS: aspirin 81 mg EC Tablet PO (07:58)
--- NOTE | 2024-10-11 08:44 | XR_ITS ---
WS: [id number] Exam: XR chest 1V portable [id number] Date/Time of Exam: 10/11/2024 9:11 AM Reason For Exam: intubated Comparison 10/10/2024. Bilateral pulmonary infiltrates unchanged. Heart size is within normal limits. ET tube in place showing no significant positional change. An enteric tube is looped in the stomach with the tip directed back toward the GE junction. This is unchanged in position. No pneumothorax. Coronary artery stenting. The mediastinum is normal in contour. XR/XR chest 1V portable [id number] IMPRESSION: 1. Bilateral pulmonary infiltrates unchanged. ET tube and enteric tube also unc hanged in position.
[2024-10-11 09:13] LABS: ABG PCO2 28.9 mmHg (35-45); ABG PH Result 7.44 (7.35-7.45); Alveolar-Arterial Oxygen Gradi 10.5 mmHg (5-10); Arterial Blood Gas Hematocrit 28.6 % (37-47); Base Excess ABG -3.9 mmol/L (-2.0-2.0); Blood Gas Allen Test Pos; Blood Gas Operator Identificat WALCI; Blood Gas Sample Site Radial, right; Blood Gas Sample Type Arterial; Carboxyhemoglobin 0.6 %THgb (0.4-20.1); HCO3 ABG 19.5 mmol/L (22-26); HGB O2 Sat 97.4 % (95-100); Methemoglobin < 0.0 % (0.4-1.5); Oxygen Device VENT; Oxygen Saturation ABG 97.7; PO2 ABG 96.9 mmHg (80.0-100.0); PO2 FiO2 Ratio Arterial Blood 323; Potassium Level - ABG 3.7 mmol/L (3.5-5.0); Total Hemoglobin 9.3 g/dL (12-16)
[2024-10-11 09:15] LABS: Estmated Average Glucose 111; Hemoglobin A1C 5.5 % (4.0-6.0)
[2024-10-11 09:33] LABS: Procalcitonin 5.21 ng/mL (0-0.5)
--- NOTE | 2024-10-11 09:41 | PM.PN ---
Subjective Subjective: The patient remains intubated. She is more awake than yesterday. She is not following commands however eyes move. Response to pain. Medications: Reviewed: Yes Medication Review Details: Current Medications Acetaminophen (Acetaminophen 325 Mg Tablet) 650 mg PO Q6H PRN PRN Reason: MILD PAIN Albuterol/Ipratropium (Ipratropium-Albuterol 3 Ml Neb) 3 ml INHALATION Q6H.RESP [facility] Last Admin: 10/11/24 07:57 Dose: 3 ml Aspirin (Aspirin 81 Mg Ec Tablet) 81 mg PO DAILY [facility] Last Admin: 10/11/24 07:58 Dose: 81 mg Atropine Sulfate (Atropine 1 Mg/Ml Sdv 1 Ml) 0.5 mg IVP PRN PRN PRN Reason: Symptomatic bradycardia Budesonide (Budesonide 0.5 Mg/2 Ml Neb) 0.5 mg INHALATION BID.RESPIRATORY [facility] Last Admin: 10/11/24 09:15 Dose: Not Given Cefepime HCl (Cefepime 1,000 Mg Sdv) 1,000 mg IVP Q24H [facility]; Protocol Last Admin: 10/10/24 23:07 Dose: 1,000 mg Clopidogrel Bisulfate (Clopidogrel 75 Mg Tablet) 75 mg PO DAILY [facility] Last Admin: 10/11/24 07:58 Dose: 75 mg Heparin Sodium (Porcine) (Heparin 5,000 Unit/Ml Inj 1 Ml) 5,000 unit SUBCUT Q12H [facility] Last Admin: 10/11/24 07:58 Dose: 5,000 unit Hydralazine HCl (Hydralazine 20 Mg/Ml Inj 1 Ml) 10 mg IVP Q8H PRN PRN Reason: HYPERTENSION Last Admin: 10/10/24 20:46 Dose: 10 mg Propofol (Diprivan) 1,000 mg in 100 mls @ 0 mls/hr IV .Q0M [facility]; Protocol Last Titration: 10/09/24 10:03 Dose: 0 mcg/kg/min, 0 mls/hr Norepinephrine Bitartrate (Levophed) 4 mg in 250 mls @ 0 mls/hr IV .Q0M [facility]; Protocol Last Titration: 10/08/24 19:00 Dose: 0 mcg/min, 0 mls/hr Linezolid (Zyvox Premix) 600 mg in 300 mls @ 300 mls/hr IV Q12H [facility]; Protocol Last Infusion: 10/11/24 01:03 Dose: Infused Lanolin (Lanolin Oint 7 Gm) 1 applic TOPICAL PRN PRN PRN Reason: DRYNESS Last Admin: 10/10/24 18:08 Dose: 1 applic Magnesium Hydroxide (Magnesium Hydroxide 30 Ml Udc) 30 ml PO DAILY PRN PRN Reason: CONSTIPATION Metoprolol Tartrate (Metoprolol Tartrate 25 Mg Tablet) 12.5 mg PO BID@0900,2100 [facility] Last Admin: 10/11/24 07:58 Dose: 12.5 mg Naloxone HCl (Naloxone 0.4 Mg/Ml Sdv) 0.1 mg IVP Q2M PRN PRN Reason: RESPIRATORY RATE < 8/MIN Nitroglycerin (Nitroglycerin 0.4 Mg Sublingual Tablet) 0.4 mg SUBLINGUAL Q5M PRN PRN Reason: CHEST PAIN Vitals/I&O/Wt Last Vital Signs Temp 98.8 F 10/11/24 06:28 Pulse 80 10/11/24 08:07 Resp 22 H 10/11/24 07:59 BP 141/53 10/11/24 06:28 Pulse Ox 99 10/11/24 07:59 O2 Del Method Mechanical Ventilation 10/11/24 07:57 O2 Flow Rate 15 10/05/24 20:17 FiO2 30 10/11/24 07:59 10/10/24 10/11/24 10/11/24 22:59 06:59 14:59 Intake Total 1700 / 2340 300 / 2640 Output Total 200 / 500 200 / 700 Balance 1500 / 1840 100 / 1940 Weight last 48 hrs Weight 62.5 kg Physical Exam Narrative: The patient is intubated. Her vent settings are Fio2 30% CPAP 8/5 HEENT normocephalic atraumatic neck is supple lungs- b/l crackles Heart is regular. Abdomen is soft positive bowel sounds Extremities do not have edema. Neuro minimally responsive Data 10/11/24 03:24 10/11/24 03:24 Micro: Microbiology 10/05/24 23:42 Blood Culture - Final Blood NO GROWTH AFTER 5 DAYS 10/05/24 20:41 Blood Culture - Final Blood NO GROWTH AFTER 5 DAYS A&P Assessment and plan (1) Acute kidney injury superimposed on CKD: 79-year-old lady diabetic hypertensive CKD, EF of 45% with grade 1 diastolic dysfunction and pulmonary hypertension. Patient's creatinine has been rising over the last couple years from 1.5 to 2.1 mg/dL. Patient presented after recent antibiotic and is now here with presumed utI plus minus pneumonia and non-ST elevation [place]. Patient had significant hypotension on October 05, 2024 went to the [facility] and had stents in contrast. 1. CKD stage IV baseline creatinine 2 mg/dL is presumed diabetic hypertensive. Will also send serum protein electrophoresis, there was normal in 2023. -She does not have significant proteinuria on urinalysis making diabetic nephropathy less typical here. 2. Acute kidney injury in this patient is likely ATN versus contrast-induced GIL. Patient had significant hypotension required significant amount of contrast on 10/05. The timeline is appropriate for contrast-induced GIL?as she was high risk on an ARB and hypotensive and infected. - avoid nephrotoxins. -normal complements - CPK 7153- sudhakar to 9831. unlikely high enough ck to cause GIL. -u/a- 3+ blood, 1+ prot, 21-50 rbc- will send serologies to rule out a renal pulmonary syndrome UPCR 08/26 UACR 90 -low ur na c/w prerenal azotemia- check w/ ivf -CT of her abdomen did not show any hydronephrosis but did appear to have chronic kidney disease. - no emergent need for dialysis. however, if she cant be extubated, then we can dialyze her to help remove fluids -stop ivf. give bumex 3. Pt has a resp alkalosis and inc AG metabolic acidosis from GIL =[place] improved to 2.1 -likely from GIL - no emergent need for dialysis 4. anemia- hgb stable she received epo x 1 -iron sat 22.8%, ferritin 533 5. Hyponatremia- low ur na normal TSH and cortisol level. Free water restrict. Acute kidney injury can cause hyponatremia, heart failure clinic this afternoon If her sodium and creatinine do not improve. We may initiate dialysis to see if this helps with mental status. 6. hyperphosphatemia- monitor phos PTH 289.7 replace vit d - her level is 8 please dose all meds for GFR <5 7. Pneumonia -renal dose abx The patient was seen and examined with the aid of a nurse using audiovisual equipment. Case discussed in detail with patient's nurse and her son. he consdents to telehealth and dialysis as needed Plan See above. PDMP PDMP Reviewed: Not Reviewed Attestations Medical Necessity Statement*: Acute kidney injury, pneumonia, vent dependent respiratory failure Time Spent in Patient Care: 16 - 35 minutes (>than 50% of time spent in counselling and/or direct pt care on unit). Coding Level of Care Code Acute Code for Chg Fwd Diagnoses Acute kidney injury superimposed on CKD N17.9; N18.9
[2024-10-11 09:52] LABS: Vitamin B12 > 2000 pg/mL (232-1245)
--- NOTE | 2024-10-11 10:30 | CT_ITS ---
WS: [id number] CT HEAD NONCONTRAST HISTORY: ams TECHNIQUE: Contiguous axial imaging performed through the brain. Bone and soft tissue windows. Sagittal and coronal reformats reviewed. All CT scans at [facility] use at least one of these dose optimization techniques: automated exposure control; mA and/or kV adjustment per patient size (includes targeted exams where dose is matched to clinical indication); or iterative reconstruction. DLP: 1210.28 mGy.cm COMPARISON: 05/12/2022 No acute intracranial hemorrhage or edema. Severe bilateral symmetric cerebral and cerebellar atrophy with small vessel disease. No large territory infarct. Lacunar infarct LEFT caudate. Ventricles: Ventricles and extra-axial spaces are prominent on the basis of atrophy. No inferior displacement the cerebellar tonsils. Paranasal sinuses: As visualized are clear. Mastoid air cells: Well pneumatized. Calvarium and scalp: Skull is intact with no soft tissue edema or swelling. Patient is intubated. Dense atherosclerotic plaque in the distal vertebral and distal intracranial carotid arteries. CT/CT head wo con* [id number] IMPRESSION: 1. No acute intracranial hemorrhage or edema. 2. Severe bilateral cerebral and cerebellar atrophy with mild small vessel dis ease. 3. Chronic lacunar infarct LEFT caudate. 4. Patient is intubated.
--- NOTE | 2024-10-11 10:30 | CT_ITS ---
WS: [id number] CT chest wo con [id number] HISTORY: resp failure TECHNIQUE: Axial imaging performed through the thorax. Coronal and sagittal reformats are submitted. All CT scans at [facility] use at least one of these dose optimization techniques: automated exposure control; mA and/or kV adjustment per patient size (includes targeted exams where dose is matched to clinical indication); or iterative reconstruction. CONTRAST: None DLP: 397.53 mGy.cm COMPARISON: 10/05/2024 Endotracheal tube in good position. Nasogastric tube terminates within the stomach. Lungs and central airway: Motion artifact from breathing. Atelectasis and opacifications following along the fissures. Previously described pneumonia in the LEFT upper lobe has improved. Minimal atelectasis persisting. Subsegmental atelectasis at the RIGHT lung base is new. There is mild hazy attenuation which is exacerbated by breathing motion artifact. Pleura: Development of small bilateral pleural effusions, RIGHT greater than LEFT. Heart and pericardium: Mildly enlarged heart. Dense coronary artery calcifications. LEFT atrium is asymmetrically enlarged compared to the rest of the chambers. Mediastinum and christian: No mediastinum or hilar adenopathy. Vessels: Dense plaque within the thoracic aorta. Normal size pulmonary artery. Chest wall and lower neck: Diffuse soft tissue anasarca. Mild dependent edema. Upper abdomen: Large hiatal hernia. Suprarenal aortic calcifications are very dense. Calcifications continue into the mesenteric arteries. Reidentified is the low-attenuation 16 mm hepatic lesion which is unchanged in size. No adrenal mass. Incompletely visualized low-attenuation mass LEFT kidney measures 3.2 cm. Cholelithiasis better identified on the prior study. Osseous structures: No destructive process. CT/CT chest wo con [id number] IMPRESSION: 1. Nasogastric tube in good position. 2. Endotracheal tube in good position. 3. New small bilateral pleural effusions, RIGHT greater than LEFT. 4. Improved pneumonia LEFT upper lobe. 5. Mild dependent changes along the pleural fissures. Mild hazy attenuation th roughout both lungs may be due to fluid overload. 6. Very dense atherosclerotic calcification within the thoracic aorta and supr arenal abdominal aorta. 7. Soft tissue anasarca from fluid overload. 8. Large hiatal hernia.
[2024-10-11] MEDS: magnesium sulfate premix 1 GM/100 ML PIGGYBACK IV (10:31)
[2024-10-11] MEDS: bumetanide 0.25 mg/mL SDV 4 mL 1 MG IVP (11:16)
[2024-10-11] MEDS: linezolid premix 600 MG/300 ML PREMIX 300 MG IV ×2 (11:17→23:44)
[2024-10-11] MEDS: metOLazone 5 MG Tablet PO (11:17)
--- NOTE | 2024-10-11 11:23 | P.PN_ITS ---
<Statement entered by Chaz Stein M.D - 10/18/24 13:48> Patient was cared for in conjunction with an advanced practice practitioner.? I reviewed the chart and all pertinent data including imaging, telemetry, and laboratory results.? I discussed the patient in detail with the advanced practice practitioner.? Please see?their note for progress note, testing results and agreed upon plan of care for the patient. Subjective 2 Subjective: Patient is currently intubated but not sedated. They are attempting to extubate today. She is off of pressors at this time. Creatinine still increased at 3.5. She is currently getting metoprolol 12.5 twice daily and is tolerated this well so far. EF was seen at 45 to 50%. She appears well compensated Vitals/I&O/Wt Last Vital Signs Temp 98.8 F 10/11/24 06:28 Pulse 76 10/11/24 09:30 Resp 19 H 10/11/24 10:24 BP 146/55 10/11/24 09:30 Pulse Ox 98 10/11/24 10:24 O2 Del Method Mechanical Ventilation 10/11/24 07:57 O2 Flow Rate 15 10/05/24 20:17 FiO2 30 10/11/24 10:24 10/10/24 10/11/24 10/11/24 22:59 06:59 14:59 Intake Total 1700 / 2340 300 / 2640 Output Total 200 / 500 200 / 700 Balance 1500 / 1840 100 / 1940 Weight last 48 hrs Weight 137 lb 12.623 oz Physical Exam 2 Narrative: General: Intubated HENMT: normoceophalic Respiratory: Normal respiratory effort, clear to auscultation bilaterally throughout all lung gilmore, no use of accessory muscles Cardio: No JVD, regular rate, regular rhythm, S1 S2 normal, no murmurs, peripheral pulses 2+ radial palpated bilaterally Extremities: Full ROM, normal, normal capillary refill, no cyanosis or edema Neuro: Intubated Skin: Right fem stick sites clean dry intact well-approximated no signs of hematoma soft Data 10/11/24 03:24 10/11/24 03:24 Micro: Microbiology 10/05/24 23:42 Blood Culture - Final Blood NO GROWTH AFTER 5 DAYS 10/05/24 20:41 Blood Culture - Final Blood NO GROWTH AFTER 5 DAYS A&P Assessment and plan (1) Unstable angina: (2) Peripheral arterial disease with history of revascularization: (3) Paroxysmal atrial flutter: (4) Benign hypertension: (5) Chronic kidney disease (CKD): (6) Pneumonia: (7) NSTEMI (non-ST elevated myocardial infarction): Plan Patient had PCI of left main to proximal LAD with 2 stents. On aspirin and Plavix. Echo shows mildly reduced LV systolic function. Creatinine has now increased to 3.5. Has been making some urine. Patient is being seen by nephrology. Appreciate their assistance. Patient is now off of pressors and is possibly getting extubated today. Hemaglobin stable at 9.3. Appropriate to transfuse to keep hgb over 8. hospitalist team is onboard as well. We appreciate their assistance. Medicine team on board for management of medical issues and vent management. Appreciate assistance. Antibiotic therapy for UTI/pneumonia. PDMP PDMP Reviewed: Not Reviewed Attestations 2 Medical Necessity Statement*: Acute MN, acute respiratory failure, patient on ventilator Coding Level of Care Code Acute Code for [facility] Fwd Diagnoses Unstable angina I20.0 Peripheral arterial disease with history of revascularization I73.9; Z98.890 Paroxysmal atrial flutter I48.92 Benign hypertension I10 Chronic kidney disease, unspecified CKD stage N18.9 Chronic kidney disease stage: unspecified stage Pneumonia due to infectious organism, unspecified laterality, unspecified part of lung J18.9 Laterality: unspecified laterality Lung location: unspecified part of lung Pneumonia type: due to unspecified organism NSTEMI (non-ST elevated myocardial infarction) I21.4
[2024-10-11 13:29] LABS: Potassium, Radom Urine 32 mmol/L; Urine Creatinine 72 mg/dL (28-217); Urine Random Sodium 28 mmol/L
[2024-10-11 13:30] LABS: Urine Random Chloride 11 mmol/L
[2024-10-11 14:31] LABS: MRSA PCR OZH (swab) MRSA Detected (Not Detecte)
--- NOTE | 2024-10-11 14:44 | PC.SOCIAL ---
IMM Updated Provided pt a copy. Initialed, dated, & timed copy in chart.
--- NOTE | 2024-10-11 15:50 | P.PN_ITS ---
Subjective 2 Subjective: Hospital course, labs appreciated. Today morning patient seen laying comfortably in bed not on sedation, on mechanical ventilation with FiO2 of 30%, PEEP of 5. Hemodynamically stable. Afebrile last 24 hours. Vitals/I&O/Wt Last Vital Signs Temp 98.8 F 10/11/24 06:28 Pulse 85 10/11/24 13:15 Resp 22 H 10/11/24 13:10 BP 151/85 10/11/24 13:00 Pulse Ox 97 10/11/24 13:10 O2 Del Method Mechanical Ventilation 10/11/24 13:05 O2 Flow Rate 15 10/05/24 20:17 FiO2 30 10/11/24 13:10 10/11/24 10/11/24 10/11/24 06:59 14:59 22:59 Intake Total 300 / 2640 100 / 100 Output Total 200 / 700 Balance 100 / 1940 100 / 100 Weight last 48 hrs Weight 62.5 kg Physical Exam 2 Narrative: General: Intubated, currently not sedated, somnolent HENMT: normoceophalic Respiratory: Normal respiratory breath sounds all over lung gilmore with occasional rhonchi and crackles bilaterally, left more than right, prozone more than lower zone Cardio: No JVD, regular rate, regular rhythm, S1 S2 normal, no murmurs. Abdomen: Soft, mildly distended. Bowel sounds are hypoactive. Neuro: Intubated, somnolent Extremity: Bilateral 2+ pitting edema to knees Data 10/11/24 03:24 10/11/24 03:24 Micro: Microbiology 10/11/24 12:15 Bacterial Antigens - Final Urine Kidney 10/11/24 10:35 Gram Stain - Final Sputum - Endotracheal Tube Aspirate 10/05/24 23:42 Blood Culture - Final Blood NO GROWTH AFTER 5 DAYS 10/05/24 20:41 Blood Culture - Final Blood NO GROWTH AFTER 5 DAYS A&P Assessment and plan (1) NSTEMI (non-ST elevated myocardial infarction): Post PCI for critical ostial LAD and left main. Appreciate cardiology recommendations. Continue with DAPT with aspirin, Plavix, statin, beta-koby with metoprolol 12.5 mg twice daily. Echocardiogram done shows EF of 45 to 50% grade 1 diastolic dysfunction, mild MR, mild TR with mild pulmonary hypertension. (2) Respiratory failure: Currently mechanically ventilated. On minimal ventilator support. Patient continues to have metabolic encephalopathy most likely in setting of uremia from renal dysfunction and hyponatremia. Remains off sedation for 36-hour. Continue to hold off sedation for now. Switch to pressure support and make patient work with ventilator for as long as possible. Can transition to full support overnight for resting. Once patient is more awake, alert and following directions with appropriate RSBI will plan for extubation. Oxygen supplementation keeping saturation over 88%. Add Pulmicort twice daily, continue with DuoNebs every 6 hour. Monitor urine output. (3) Acute kidney injury superimposed on CKD: Baseline creatinine around 1.5. Currently up to 3.5. Combination of ATN and RIRI. Associated with uremia, metabolic acidosis. Appreciate ABG showing compensated respiratory alkalosis with metabolic acidosis. Nephrology on board. Associated with hypoalbuminemia. Start on IV albumin every 8 hours. Stop IV fluids. Concern for fluid overload. Check chest x-ray. Patient does have generalized edema. IV Bumex 1 mg twice daily. Metolazone 5 mg oral one-time. Strict input output charting, daily weights. Medical reconciliation done for nephrotoxic drugs. CT on pelvis negative for obstructive nephropathy. Depending on urine output can plan for possible Lasix drip. (4) Acute metabolic encephalopathy: Most likely in setting of acute renal failure. Also has hyponatremia though hyponatremia is chronic. Patient off sedation for 36-hour. Continue to remain off sedation for now. Check CT head. (5) Pneumonia: Concern for left upper lobe pneumonia. Check sputum culture. Urine bacterial antigen. Continue with empiric IV cefepime and Zyvox. Check MRSA swab. If negative will discontinue Zyvox. Will plan to finish a 7-day course of antibiotics. Blood cultures never taken on admission. If patient spikes fever will check blood culture. (6) COPD (chronic obstructive pulmonary disease): (7) Chronic hyponatremia: (8) UTI (urinary tract infection): (9) Lactic acidosis: (10) Metabolic acidosis: (11) Peripheral arterial disease with history of revascularization: (12) Benign hypertension: Plan Code Status: Full IVF: Stop IV fluids DVT PPx: heparin every 12 hourly GI PPx: Famotidine 20 mg IV every 12 hourly ABx: Linezolid, Cefepime Diet: NPO. If remains intubated for next 24 hours can plan to start on tube feedings. Discharge plan: Back to SNF when stable. PDMP PDMP Reviewed: Not Reviewed Attestations 2 Medical Necessity Statement*: Requires further hospitalization for medical management of non-ST ovation IN post PCI, respiratory failure requiring mechanical ventilation, metabolic encephalopathy, acute kidney injury on CKD Critical Care Time: The high probability of a clinically significant, sudden or life threatening deterioration of the patient's [cardiac, pulmonary, renal, neurological] s ystem(s) required my full and direct attention, intervention and personal management. The critical care time is as shown. This time is in addition to time spent performing any reported procedures but includes the following: [x] Data and vital sign review and interpretation [x] Patient assessment, examination and intervention [x] Documentation [x] Medication orders and management Critical Care Time (min): 90 Coding Level of Care Code Critical Care >/= 30 minutes Critical care time (in minutes): 90 The high probability of a clinically significant, sudden or life threatening deterioration, as referenced in this documentation, required my full and direct attention, intervention and personal management. The critical care time shown is in addition to time spent performing any reported separately billable procedures and includes the following: [x] Data and vital sign review and interpretation [x ] Patient assessment, examination and intervention [x] Medication orders and management [x] Patient/Family updates as able [x] Care Coordination and Documentation. Other Coding Information This patient has a high probability of clinically significant, sudden or life threatening deterioration of the patient's (neurological/pulmonary/cardiac/renal/ID/endocrine) systems required my full, direct attention, the highest level of physician preparedness for urgent intervention and personal management. I managed/supervised life or organ supporting interventions that required frequent physician assessment. I devoted my full attention in the ICU to the direct care of this patient for the period of time indicated above. Time I spent with family or surrogate(s) is included only if the patient was incapable of providing necessary information or participating in decision making. This time includes the following services provided: Telemetry review Mechanical Ventilation Hemodynamic interpretation, assessment and management Review and interpretation of CXR Review and interpretation of lab values Review and interpretation of microbiologic data and culture results Review of medications and administration Review and interpretation of Nutrition requirements and management Discussion of management with other consultants and services Clinical update to family members Diagnoses NSTEMI (non-ST elevated myocardial infarction) I21.4 Respiratory failure J96.90 Acute kidney injury superimposed on CKD N17.9; N18.9 Acute metabolic encephalopathy G93.41 Pneumonia due to infectious organism, unspecified laterality, unspecified part of lung J18.9 Laterality: unspecified laterality Lung location: unspecified part of lung Pneumonia type: due to unspecified organism Other emphysema J43.8 COPD type: emphysema Emphysema type: other Chronic hyponatremia E87.1 UTI (urinary tract infection) N39.0 Lactic acidosis E87.20 Metabolic acidosis E87.20 Peripheral arterial disease with history of revascularization I73.9; Z98.890 Benign hypertension I10
[2024-10-11 16:31] LABS: Blood Urea Nitrogen 60 mg/dL (8-23); Calcium 7.5 mg/dL (8.5-10.5); Carbon Dioxide 17 mmol/L (22-29); Chloride 89 mmol/L (98-107); Glucose 105 mg/dL (65-115); Osmolality Calculated 275 mOsm/kg (285-295); Sodium 124 mmol/L (136-145)
[2024-10-11] MEDS: albumin 25 G/100 ML BAG 60 G IV ×2 (16:36→23:44)
[2024-10-11] MEDS: famotidine 20 mg/2 mL INJ IVP (16:37)
[2024-10-11 16:40] LABS: Anion Gap 21.8 (5-19); Potassium 3.8 mmol/L (3.5-5.1)
[2024-10-11 16:45] LABS: Glomerular Bsmt Membrane IGG <1.0 AI
[2024-10-11] MEDS: FUROsemide 10 mg/mL SDV 10mL 60 MG IVP (17:38)
[2024-10-11] MEDS: budesonide 0.5 mg/2 mL Neb INHALATION (19:33)
--- NOTE | 2024-10-11 19:35 | PC.NURSE ---
Day shift nurse told salon supervisor charge nurse that provider said to let patient rest this evening and not attempt to place NG tube. Attempts would be made tomorrow.
[2024-10-11] MEDS: cefepime 1,000 mg SDV 1000 MG IVP (23:44)
[2024-10-12] VITALS (343 sets, daily range): BP systolic 141–197; BP diastolic 52–104; PULSE 76–112; RESP 18–31; TEMP 37.1–38; O2SAT 89–100; BMI 24.2
[2024-10-12] MEDS: ipratropium-albuterol 3 mL Neb INHALATION ×4 (02:19→19:41)
[2024-10-12] MEDS: famotidine 20 mg/2 mL INJ IVP (04:07)
[2024-10-12 04:14] LABS: Alanine Aminotransferase 42 U/L (0-33); Albumin Level 2.8 g/dL (3.5-5.2); Alkaline Phosphatase 60 U/L (35-105); Anion Gap 24.7 (5-19); Aspartate Amino Transferase 95 U/L (0-32); Blood Urea Nitrogen 67 mg/dL (8-23); Calcium 7.6 mg/dL (8.5-10.5); Carbon Dioxide 16 mmol/L (22-29); Chloride 89 mmol/L (98-107); Globulin 2.7 g/dL (1.3-4.6); Glucose 97 mg/dL (65-115); Osmolality Calculated 281 mOsm/kg (285-295); Potassium 3.7 mmol/L (3.5-5.1); Sodium 126 mmol/L (136-145); Total Bilirubin 0.4 mg/dL (0.15-1.2); Total Protein 5.5 g/dL (6.6-8.7)
[2024-10-12 04:18] LABS: Chol HDL Ratio 5.41 mg/dL (0.0-4.40); Cholesterol 92 mg/dL (0-200); HDL Cholesterol 17 mg/dL (60-100); LDL Cholesterol Calculated 38 mg/dL (50-129); Magnesium 1.7 mg/dL (1.7-2.3); Phosphorus 6.9 mg/dL (2.5-4.5); Triglycerides 183 mg/dL (0-150); VLDL Cholestrol Calculation 37 mg/dL (0-30)
[2024-10-12 04:40] LABS: ABG PCO2 28.5 mmHg (35-45); ABG PH Result 7.42 (7.35-7.45); Alveolar-Arterial Oxygen Gradi 10.8 mmHg (5-10); Arterial Blood Gas Hematocrit 27.2 % (37-47); Base Excess ABG -5.1 mmol/L (-2.0-2.0); Blood Gas Allen Test Pos; Blood Gas Operator Identificat JDB; Blood Gas Sample Site Radial, right; Blood Gas Sample Type Arterial; Carboxyhemoglobin 0.8 %THgb (0.4-20.1); HCO3 ABG 18.5 mmol/L (22-26); HGB O2 Sat 95.4 % (95-100); Ionized Calcium Level - ABG 1.1 mmol/L (1.1-1.4); Methemoglobin 1.4 % (0.4-1.5); Oxygen Device VENT; Oxygen Saturation ABG 97.5; PO2 ABG 94.4 mmHg (80.0-100.0); PO2 FiO2 Ratio Arterial Blood 314; Potassium Level - ABG 3.8 mmol/L (3.5-5.0); Total Hemoglobin 8.9 g/dL (12-16)
[2024-10-12 04:40] LABS: Folate Level 7.2 ng/mL (4.8-37.3)
--- NOTE | 2024-10-12 06:00 | XRR_ITS ---
PROCEDURE INFORMATION: Exam: XR Chest Exam date and time: 10/12/2024 7:13 AM Age: 79 years old Clinical indication: Device placement; Ett placement (vent status); Additional info: Intubated TECHNIQUE: Imaging protocol: Radiologic exam of the chest. Views: 1 view. COMPARISON: CT chest con [id number] 10/11/2024 2:27 PM FINDINGS: Tubes, catheters and devices: Stable life-support lines. The enteric tube loops in the upper stomach, its tip is near the EG junction. Endotracheal tube is in satisfactory location. Lungs: Vascular engorgement, interstitial and alveolar edema, and bilateral pleural effusions are present. Pleural spaces: See Lungs finding. Heart/Mediastinum: Unremarkable. No cardiomegaly. Bones/joints: Unremarkable. XR/XR chest 1V portable [id number] IMPRESSION: No significant change.
[2024-10-12] MEDS: budesonide 0.5 mg/2 mL Neb INHALATION ×2 (07:58→19:41)
[2024-10-12] MEDS: albumin 25 G/100 ML BAG 60 G IV ×3 (08:11→23:18)
[2024-10-12 08:13] LABS: Basophils % 0.3 %; Eosinophils % 0.1 %; Hematocrit 23.7 % (36-47); Lymphocytes # 0.3 10^3/uL (0.8-4.8); Lymphocytes % 2.9 %; Mean Corpuscular HGB Conc 33.3 g/dL (30-55); Mean Corpuscular Hemoglobin 29.5 pg (27-33); Mean Corpuscular Volume 88.4 fl (85-98); Mean Platelet Volume 11.6 fL (7.4-10.4); Monocytes # 0.6 10^3/uL (0.2-0.9); Monocytes % 5.5 %; Neutrophils # 9.75 10^3/uL (1.8-7.7); Neutrophils % 89.9 %; Nucleated Red Blood Cells % 0.2 %; Platelet Count 141 10^3/cmm (157-399); Red Blood Count 2.68 10^6/uL (3.85-5.65); Red Cell Distribution Width 13.7 % (12.1-15.1); White Blood Count 10.85 10^3/uL (3.29-11.43)
[2024-10-12] MEDS: hyDRALAzine 20 mg/mL INJ 1 mL 10 MG IVP ×2 (08:16→19:56)
[2024-10-12] MEDS: heparin 5,000 unit/mL INJ 1 mL 5000 UNIT SUBCUT ×2 (08:17→21:18)
[2024-10-12] MEDS: clopidogrel 75 mg Tablet PO (08:19)
[2024-10-12] MEDS: metOLazone 5 MG Tablet PO (08:19)
[2024-10-12] MEDS: aspirin 81 mg EC Tablet PO (08:19)
[2024-10-12] MEDS: metoprolol tartrate 25 mg Tablet 12.5 MG PO (08:20)
[2024-10-12] MEDS: FUROsemide 100 MG in sodium chloride 0.9% 40 ML IV (09:00)
[2024-10-12] MEDS: metOLazone 5 MG Tablet 10 MG PO (09:09)
[2024-10-12] MEDS: meropenem 500 mg SDV 1000 MG IVP (09:09)
[2024-10-12] MEDS: metoprolol tartrate 25 mg Tablet PO ×2 (09:10→21:18)
--- NOTE | 2024-10-12 09:27 | XR_ITS ---
WS: [id number] Exam: XR chest 1V portable [id number] Date/Time of Exam: 10/12/2024 9:28 AM Reason For Exam: NG Compared to prior study performed earlier on the same day at 7:15 a.m. Bilateral pulmonary infiltrates are unchanged. Heart size is within normal limits. The mediastinum is normal in contour. ET tube ends about 6 cm above the belem in satisfactory position. An enteric tube is looped in the stomach the tip directed back toward the GE junction. This is unchanged also. No p neumothorax or pleural effusion. Bifurcated stent seen in the region of the lower abdominal aorta. XR/XR chest 1V portable [id number] IMPRESSION: 1. Bilateral pulmonary infiltrates unchanged. 2. ET tube remaining in satisfactory position. Enteric tube looped in the stoma ch with the tip directed back toward the GE junction. Position is unchanged.
[2024-10-12] MEDS: vancomycin 1,250 MG/250 ML PIGGYBACK 166.67 MG IV (09:28)
--- NOTE | 2024-10-12 09:41 | PC.NURSE ---
Rounding: Dr Reyes rounding this morning, received verbal orders for NG tube placement, order and tube placed. Xray obtained. Patient switched back over to pressure support per RT. Increased PO meds per Dr Reyes orders, see JUN.
--- NOTE | 2024-10-12 10:06 | P.PN_ITS ---
<Statement entered by Chaz Stein M.D - 10/18/24 14:21> Patient was cared for in conjunction with an advanced practice practitioner.? I reviewed the chart and all pertinent data including imaging, telemetry, and laboratory results.? I discussed the patient in detail with the advanced practice practitioner.? Please see?their note for progress note, testing results and agreed upon plan of care for the patient. Subjective 2 Subjective: Patient is still unable to be extubated. She is not responding to stimulation. CT head was negative for acute changes. Creatinine is slightly worsening at 3.7. UOP is poor. Currently on lasix drip and Metolazone. Vitals/I&O/Wt Last Vital Signs Temp 100.4 F H 10/12/24 07:45 Pulse 111 H 10/12/24 08:38 Resp 30 H 10/12/24 09:09 BP 147/53 10/12/24 08:38 Pulse Ox 96 10/12/24 09:09 O2 Del Method Mechanical Ventilation 10/12/24 08:00 O2 Flow Rate 15 10/05/24 20:17 FiO2 30 10/12/24 09:09 10/11/24 10/12/24 10/12/24 22:59 06:59 14:59 Intake Total 1110.5 / 1210.5 400 / 1610.5 100 / 100 Output Total 425 / 425 200 / 625 Balance 685.5 / 785.5 200 / 985.5 100 / 100 Weight last 48 hrs Weight 136 lb 14.513 oz Physical Exam 2 Narrative: General: Intubated HENMT: normoceophalic Respiratory: Normal respiratory effort, Course bilateral upper and lower lobes throughout, no use of accessory muscles Cardio: No JVD, regular rate, regular rhythm, S1 S2 normal, no murmurs, peripheral pulses 2+ radial palpated bilaterally Extremities: Full ROM, normal, normal capillary refill, no cyanosis or edema Neuro: Intubated Skin: Right fem stick sites clean dry intact well-approximated no signs of hematoma soft Data 10/12/24 08:00 10/12/24 03:35 Micro: Microbiology 10/11/24 12:15 Bacterial Antigens - Final Urine Kidney 10/11/24 10:35 Gram Stain - Final Sputum - Endotracheal Tube Aspirate A&P Assessment and plan (1) Unstable angina: (2) Peripheral arterial disease with history of revascularization: (3) Paroxysmal atrial flutter: (4) Benign hypertension: (5) Chronic kidney disease (CKD): (6) Pneumonia: (7) NSTEMI (non-ST elevated myocardial infarction): Plan Patient had PCI of left main to proximal LAD with 2 stents. On aspirin and Plavix. Echo shows mildly reduced LV systolic function. Creatinine has now increased to 3.7. Has been making some urine. Currently on lasix drip. Patient is being seen by nephrology. Appreciate their assistance. Patient is now off of pressors but has been unable to be extubated. Hemoglobin stable at 7.9. Hospitalist team is onboard as well. We appreciate their assistance. Medicine team on board for management of medical issues and vent management. Appreciate assistance. Antibiotic therapy for UTI/pneumonia. PDMP PDMP Reviewed: Not Reviewed Attestations 2 Medical Necessity Statement*: Acute [place], acute respiratory failure, patient on ventilator Coding Level of Care Code Acute Code for [facility] Diagnoses Unstable angina I20.0 Peripheral arterial disease with history of revascularization I73.9; Z98.890 Paroxysmal atrial flutter I48.92 Benign hypertension I10 Chronic kidney disease, unspecified CKD stage N18.9 Chronic kidney disease stage: unspecified stage Pneumonia due to infectious organism, unspecified laterality, unspecified part of lung J18.9 Laterality: unspecified laterality Lung location: unspecified part of lung Pneumonia type: due to unspecified organism NSTEMI (non-ST elevated myocardial infarction) I21.4
--- NOTE | 2024-10-12 10:34 | P.PN_ITS ---
Subjective 2 Subjective: still intubated. more awake, moving. + urine w/ furosemide drip Medications: Reviewed: Yes Medication Review Details: Current Medications Acetaminophen (Acetaminophen 325 Mg Tablet) 650 mg PO Q6H PRN PRN Reason: MILD PAIN Albuterol/Ipratropium (Ipratropium-Albuterol 3 Ml Neb) 3 ml INHALATION Q6H.RESP TABATHA Last Admin: 10/12/24 07:58 Dose: 3 ml Aspirin (Aspirin 81 Mg Ec Tablet) 81 mg PO DAILY TABATHA Last Admin: 10/12/24 08:19 Dose: 81 mg Atropine Sulfate (Atropine 1 Mg/Ml Sdv 1 Ml) 0.5 mg IVP PRN PRN PRN Reason: Symptomatic bradycardia Budesonide (Budesonide 0.5 Mg/2 Ml Neb) 0.5 mg INHALATION BID.RESPIRATORY [facility] Last Admin: 10/12/24 07:58 Dose: 0.5 mg Clopidogrel Bisulfate (Clopidogrel 75 Mg Tablet) 75 mg PO DAILY TABATHA Last Admin: 10/12/24 08:19 Dose: 75 mg Heparin Sodium (Porcine) (Heparin 5,000 Unit/Ml Inj 1 Ml) 5,000 unit SUBCUT Q12H TABATHA Last Admin: 10/12/24 08:17 Dose: 5,000 unit Hydralazine HCl (Hydralazine 20 Mg/Ml Inj 1 Ml) 10 mg IVP Q8H PRN PRN Reason: HYPERTENSION Last Admin: 10/12/24 08:16 Dose: 10 mg Propofol (Diprivan) 1,000 mg in 100 mls @ 0 mls/hr IV .Q0M [facility]; Protocol Last Titration: 10/09/24 10:03 Dose: 0 mcg/kg/min, 0 mls/hr Albumin Human (Albumin) 25 g in 100 mls @ 60 mls/hr IV Q8H [facility] Last Infusion: 10/12/24 09:55 Dose: Infused Furosemide 100 mg/ Sodium (Chloride) 50 mls @ 0 mls/hr IV .Q0M [facility]; Protocol Last Admin: 10/12/24 09:00 Dose: 10 mg/hr, 5 mls/hr Lanolin (Lanolin Oint 7 Gm) 1 applic TOPICAL PRN PRN PRN Reason: DRYNESS Last Admin: 10/10/24 18:08 Dose: 1 applic Magnesium Hydroxide (Magnesium Hydroxide 30 Ml Udc) 30 ml PO DAILY PRN PRN Reason: CONSTIPATION Meropenem (Meropenem 500 Mg Sdv) 1,000 mg IVP Q24H [facility]; Protocol Last Admin: 10/12/24 09:09 Dose: 1,000 mg Metolazone (Metolazone 5 Mg Tablet) 10 mg PO DAILY [facility] Last Admin: 10/12/24 09:09 Dose: 10 mg Metoprolol Tartrate (Metoprolol Tartrate 25 Mg Tablet) 25 mg PO BID@0900,2100 [facility] Last Admin: 10/12/24 09:10 Dose: 25 mg Naloxone HCl (Naloxone 0.4 Mg/Ml Sdv) 0.1 mg IVP Q2M PRN PRN Reason: RESPIRATORY RATE < 8/MIN Nitroglycerin (Nitroglycerin 0.4 Mg Sublingual Tablet) 0.4 mg SUBLINGUAL Q5M PRN PRN Reason: CHEST PAIN Vancomycin HCl (Vancomycin 1,000 Mg Sdv (Pharmacy Mix)) 0 mg XX PRN PRN PRN Reason: Pharmacy to Dose Vitals/I&O/Wt Last Vital Signs Temp 100.4 F H 10/12/24 07:45 Pulse 111 H 10/12/24 08:38 Resp 30 H 10/12/24 09:09 BP 147/53 10/12/24 08:38 Pulse Ox 96 10/12/24 09:09 O2 Del Method Mechanical Ventilation 10/12/24 08:00 O2 Flow Rate 15 10/05/24 20:17 FiO2 30 10/12/24 09:09 10/11/24 10/12/24 10/12/24 22:59 06:59 14:59 Intake Total 1110.5 / 1210.5 400 / 1610.5 100 / 100 Output Total 425 / 425 200 / 625 Balance 685.5 / 785.5 200 / 985.5 100 / 100 Weight last 48 hrs Weight 62.1 kg Physical Exam 2 Narrative: The patient is intubated. Her vent settings are minimal HEENT normocephalic atraumatic neck is supple lungs- b/l crackles Heart is regular. Abdomen is soft positive bowel sounds Extremities do not have edema. Neuro minimally responsive Data 10/12/24 08:00 10/12/24 03:35 Micro: Microbiology 10/11/24 12:15 Bacterial Antigens - Final Urine Kidney 06/23/25 10:35 Gram Stain - Final Sputum - Endotracheal Tube Aspirate A&P Assessment and plan (1) Acute kidney injury superimposed on CKD: 79-year-old lady diabetic hypertensive CKD, EF of 45% with grade 1 diastolic dysfunction and pulmonary hypertension. Patient's creatinine has been rising over the last couple years from 1.5 to 2.1 mg/dL. Patient presented after recent antibiotic and is now here with presumed utI plus minus pneumonia and non-ST elevation IA. Patient had significant hypotension on October 05, 2024 went to the [facility] and had stents in contrast. 1. CKD stage IV baseline creatinine 2 mg/dL is presumed diabetic hypertensive. Will also send serum protein electrophoresis, there was normal in 2023. -She does not have significant proteinuria on urinalysis making diabetic nephropathy less typical here. 2. Acute kidney injury in this patient is likely ATN versus contrast-induced GIL. Patient had significant hypotension required significant amount of contrast on 10/05. The timeline is appropriate for contrast-induced GIL?as she was high risk on an ARB and hypotensive and infected. - avoid nephrotoxins. -normal complements - CPK 7153- sudhakar to [id number]. unlikely high enough ck to cause GIL. -u/a- 3+ blood, 1+ prot, 21-50 rbc- will send serologies to rule out a renal pulmonary syndrome UPCR 08/26 UACR 90 -whiile she is urinating w/ furosemide she has a poor MS. we will initiate HD to see if she wakes up and if can help her resp status 3. Pt has a resp alkalosis and inc AG metabolic acidosis from GIL =monitor w/ HDs 4. anemia- hgb fell - check haptoglobin, LDH, retake count bilirubin though less likely hemolysis however need to be concerned about TTP-HUS. If possible as the lab to review her peripheral blood smear for schistocytes she received epo x 1 -iron sat 22.8%, ferritin 533 5. Hyponatremia- low ur na normal TSH and cortisol level. Free water restrict. Acute kidney injury can cause hyponatremia, heart failure clinic this afternoon Sodium is stable and improved a little with diuretics 6. hyperphosphatemia-is slowly improving PTH 289.7 replace vit d - her level is 8 please dose all meds for GFR <5 7. Pneumonia -renal dose abx The patient was seen and examined with the aid of a nurse using audiovisual equipment. Case discussed in detail with patient's nurse and her son. he consdents to telehealth and dialysis as needed Case discussed in detail with Dr. Her.. If patient's mental status does not improve with dialysis would consider a goals of care conversation with the family. Plan See above. PDMP PDMP Reviewed: Not Reviewed Attestations 2 Medical Necessity Statement*: GIL ,altered mental statu,s anemia, vent dependent respiratory failure Time Spent in Patient Care: Greater than 35 minutes (>than 50% of time spent in counselling and/or direct pt care on unit) . Coding Level of Care Code Acute Code for Chg Fwd Diagnoses Acute kidney injury superimposed on CKD N17.9; N18.9
--- NOTE | 2024-10-12 10:44 | P.PCN_ITS ---
Procedure/Consent Time out: Time Out Performed: Yes Consent: Consent for Procedure: Consent obtained from other (indicate) (POA), Risks & Benefits reviewed and Agrees to proceed with procedure Procedure Narrative: Discussed risks and benefits and consent was obtained to performed a temporary dialysis catheter. The right groin was prepped and draped in the usual sterile fashion. Ultrasound was used to identify the right common femoral vein. Local infiltration done using 5 cc of 1% lidocaine. A finder needle was used to access the right common femoral vein under ultrasound guidance. Able to draw venous b lood. I then threaded a wire through the finder needle. I removed the needle and confirmed adequate placement of the wire in the right common femoral vein using ultrasound. Using an 11 blade a stab incision was done next to the wire to accommodate for the dilators. I serially dilated the tract using 2 dilators. I was then able to place the 20 cm dual-lumen temporary dialysis catheter using the Seldinger technique. I was able to draw blood and flushed easily through both lumens. Catheter was secured in place with sutures. A sterile dressing was applied. Catheter is ready for immediate use. Acute Procedures Epistaxis Control: Time out performed: Yes
--- NOTE | 2024-10-12 10:44 | PM.CONSULT ---
Providers/Reason For Consult Consulting Physician/Specialty*: Dr. Longo General Surgery Reason for Consult*: Temporary dialysis catheter placement Attending Physician: Chaz Stein M.D Primary Care Provider: Aakash Estrella MD History of Present Illness History of Present Illness Maria Isabel Ho is a 79 year old female who presented in renal failure. Surgery consulted for temporary dialysis catheter placement. Medications/Allergies Home Medications ?Medication ?Instructions ?Recorded ?Confirmed ?Last Taken ?Type aspirin 81 mg tablet,delayed 81 mg PO QAM 05/06/20 10/06/24 02/29/24 History release clopidogrel 75 mg tablet 75 mg PO QAM 05/06/20 10/06/24 02/25/24 History lovastatin 40 mg tablet 40 mg PO QAM 05/06/20 10/06/24 02/25/24 History bisacodyl 10 mg rectal suppository 10 mg VA DAILY PRN Constipation 04/18/22 10/06/24 Unknown History levothyroxine 88 mcg tablet 88 mcg PO QAM 04/18/22 10/06/24 02/29/24 History magnesium hydroxide 400 mg/5 mL 30 ml PO DAILY PRN Constipation 04/18/22 10/06/24 Unknown History oral suspension (Milk of Magnesia) polyethylene glycol 3350 17 17 g PO DAILY PRN Constipation 04/18/22 10/06/24 Unknown History gram/dose oral powder sennosides 8.6 mg tablet (senna) 8.6 mg PO DAILY PRN Constipation 04/18/22 10/06/24 Unknown History hydroxyzine HCl 10 mg tablet 10 mg PO DAILY PRN Anxiety 08/16/22 10/06/24 06/11/23 History amlodipine 2.5 mg tablet 2.5 mg PO BID 05/07/23 10/06/24 03/01/24 History ferrous sulfate 325 mg (65 mg 325 mg PO QAM 05/07/23 10/06/24 02/29/24 History iron) tablet losartan 50 mg tablet 50 mg PO BID 05/07/23 10/06/24 02/29/24 History aluminum-mag hydroxide-simethicone 30 ml PO Q4H PRN Indigestion 06/12/23 10/06/24 Unknown History 200 mg-200 mg-20 mg/5 mL oral susp carboxymethylcellulose sodium 1 % 1 drp ophthalmic (eye) Q4H PRN Dry 06/12/23 10/06/24 02/29/24 History eye drops (Artificial Tears Eyes (carboxymethylcellulose)) cyanocobalamin (vitamin B-12) 500 500 mcg PO QAM 06/12/23 10/06/24 02/29/24 History mcg tablet naloxone 2 mg/2 mL syringe kit 2 mg IM Q3M PRN Opioid Overdose 06/12/23 10/06/24 Unknown History hydralazine 100 mg tablet 100 mg PO TID #270 tabs 08/06/23 10/06/24 02/29/24 Rx buspirone 10 mg tablet 10 mg PO BID 09/25/23 10/06/24 02/29/24 History acetaminophen 325 mg tablet 650 mg PO Q6H PRN Pain or temp 02/04/24 10/06/24 02/29/24 History pantoprazole 40 mg tablet,delayed 40 mg PO DAILY 02/25/24 10/06/24 02/29/24 History release cefdinir 300 mg capsule 300 mg PO BID 7 days #14 caps 10/05/24 10/06/24 Unknown Rx levofloxacin 750 mg tablet 750 mg PO Q48H 10 days #5 tabs 10/05/24 10/06/24 Unknown Rx Lactobacillus acidophilus 1,000 mmu cells PO QAM for 21 days 10/06/24 10/06/24 Unknown History (Acidophilus capsule) escitalopram oxalate 20 mg tablet 20 mg PO DAILY 10/06/24 10/06/24 Unknown History (Lexapro) ipratropium 0.5 mg-albuterol 3 mg 3 ml inhalation Q4H pneumonia 10/06/24 10/06/24 Unknown History (2.5 mg base)/3 mL nebulization soln ipratropium 0.5 mg-albuterol 3 mg 3 ml inhalation QID 10/06/24 10/06/24 Unknown History (2.5 mg base)/3 mL nebulization soln melatonin 5 mg tablet 5 mg PO BEDTIME 10/06/24 10/06/24 Unknown History zinc sulfate 50 mg zinc (220 mg) 50 mg PO QAM 10/06/24 10/06/24 Unknown History tablet Allergies Allergy/AdvReac Type Severity Reaction Status Date / Time Penicillins Allergy ALGY-Hives Verified 10/05/24 20:36 tetracycline Allergy ALGY-Hives Verified 10/05/24 20:36 Current Medications Generic Name Dose Route Start Last Admin Trade Name Freq PRN Reason Stop Dose Admin Albuterol/Ipratropium 3 ml 10/09/24 02:00 10/12/24 07:58 Ipratropium-Albuterol 3 Ml Neb INHALATION 3 ml Q6H.RESP TABATHA Administration Aspirin 81 mg 10/06/24 09:00 10/12/24 08:19 Aspirin 81 Mg Ec Tablet PO 81 mg DAILY TABATHA Administration Budesonide 0.5 mg 10/11/24 09:00 10/12/24 07:58 Budesonide 0.5 Mg/2 Ml Neb INHALATION 0.5 mg BID.RESPIRATORY TABATHA Administration Clopidogrel Bisulfate 75 mg 10/06/24 09:00 10/12/24 08:19 Clopidogrel 75 Mg Tablet PO 75 mg DAILY TABATHA Administration Heparin Sodium (Porcine) 5,000 unit 10/10/24 09:15 10/12/24 08:17 Heparin 5,000 Unit/Ml Inj 1 Ml SUBCUT 5,000 unit Q12H TABATHA Administration Hydralazine HCl 10 mg 10/10/24 13:16 10/12/24 08:16 Hydralazine 20 Mg/Ml Inj 1 Ml IVP 10 mg Q8H PRN Administration HYPERTENSION Propofol 1,000 mg in 100 mls @ 0 mls/hr 10/05/24 22:30 10/09/24 10:03 Diprivan IV 0 mcg/kg/min .Q0M TABATHA 0 mls/hr Protocol Titration Per Protocol Albumin Human 25 g in 100 mls @ 60 mls/hr 10/11/24 16:00 10/12/24 09:55 Albumin IV Infused Q8H TABATHA Infusion Furosemide 100 mg/ Sodium 50 mls @ 0 mls/hr 10/11/24 17:15 10/12/24 09:00 Chloride IV 10 mg/hr .Q0M TABATHA 5 mls/hr Protocol Administration Per Protocol Lanolin 1 applic 10/09/24 18:00 10/10/24 18:08 Lanolin Oint 7 Gm TOPICAL 1 applic PRN PRN Administration DRYNESS Meropenem 1,000 mg 10/12/24 09:00 10/12/24 09:09 Meropenem 500 Mg Sdv IVP 1,000 mg Q24H TABATHA Administration Protocol Metolazone 10 mg 10/12/24 09:00 10/12/24 09:09 Metolazone 5 Mg Tablet PO 10 mg DAILY TABATHA Administration Metoprolol Tartrate 25 mg 10/12/24 09:00 10/12/24 09:10 Metoprolol Tartrate 25 Mg Tablet PO 25 mg BID@0900,2100 TABATHA Administration PFSH Acute PFSH: Medical History Bicytopenia Peripheral arterial disease with history of revascularization Bradycardia Chronic hyponatremia Exertional dyspnea COPD exacerbation Orthostatic hypotension Syncope COPD (chronic obstructive pulmonary disease) Hx of type 2 diabetes mellitus Peripheral vascular disease Hx of chest pain History of hypertension Frequent falls Hx of hyperlipidemia Chronic back pain Postmenopausal Impaired physical mobility Hx of renal calculi Smoker Chronic kidney disease (CKD) Surgical History Hx of tubal ligation Family History Grandmother Clotting disorder Brother Cancer Diabetes Stroke Son Chronic kidney disease (CKD) Mother Diabetes Father Stroke Denies family history of CAD (coronary artery disease) Dementia Suicide Anesthesia complication Bleeding disorder Lung disease Social History Smoking and tobacco/nicotine status: current some day tobacco/nicotine user Alcohol intake: never Substance/Drug Use: never Vitals/I&O/Wt Last Vital Signs Temp 100.4 F H 10/12/24 07:45 Pulse 111 H 10/12/24 08:38 Resp 30 H 10/12/24 09:09 BP 147/53 10/12/24 08:38 Pulse Ox 96 10/12/24 09:09 O2 Del Method Mechanical Ventilation 10/12/24 08:00 O2 Flow Rate 15 10/05/24 20:17 FiO2 30 10/12/24 09:09 10/11/24 10/12/24 10/12/24 22:59 06:59 14:59 Intake Total 1110.5 / 1210.5 400 / 1610.5 100 / 100 Output Total 425 / 425 200 / 625 Balance 685.5 / 785.5 200 / 985.5 100 / 100 Weight last 48 hrs Weight 136 lb 14.513 oz Physical Exam Narrative: Chest: Unlabored breathing room air. No lymphadenopathy. Heart: Regular rate and rhythm. Abdomen: Soft, nontender, nondistended. No masses or lymphadenopathy. Data 10/12/24 08:00 10/12/24 03:35 Micro: Microbiology 10/11/24 12:15 Bacterial Antigens - Final Urine Kidney 10/11/24 10:35 Gram Stain - Final Sputum - Endotracheal Tube Aspirate A&P Assessment and plan (1) Acute metabolic encephalopathy: (2) Acute kidney injury superimposed on CKD: Plan 79-year-old female whom surgery was consulted for temporary dialysis catheter placement. Consent obtained from POA on the phone. Discussed risk and benefits and POA agreed to proceed with temporary dialysis catheter placement. PDMP PDMP Reviewed: Not Reviewed Coding Level of Care Code 53307 Diagnoses Acute metabolic encephalopathy G93.41 Acute kidney injury superimposed on CKD N17.9; N18.9
[2024-10-12 10:57] LABS: Reticulocyte % 1.1 % (0.5-2.0)
--- NOTE | 2024-10-12 11:12 | XR_ITS ---
WS: [id number] Exam: XR chest 1V portable [id number] Date/Time of Exam: 10/12/2024 11:14 AM Reason For Exam: NG placement Compared to most recent exam performed on 10/12/2024 at 9:31 a.m. An additional enteric tube is now noted in the midline with the tip probably slightly below the GE junction. A second enteric line is again noted looped in the stomach with the tip directed back toward the GE junction. This line is unchanged in position. Endotracheal tube remains in satisfactory position unchanged. Heart size remains within normal limits. Bilateral pulmonary infiltrates slightly improved. XR/XR chest 1V portable [id number] IMPRESSION: 1. New opaque line in the midline extending slightly below the GE junction appa rently represents a second enteric tube. 2. ET tube remains in good position. An additional enteric tube is looped in th e stomach with the tip pointed back towards the GE junction. This tube is uncha nged in position. 3. Bilateral pulmonary infiltrates appear slightly improved since the last stud y. No other changes.
[2024-10-12 11:22] LABS: Alanine Aminotransferase 40 U/L (0-33); Aspartate Amino Transferase 93 U/L (0-32); Gamma Glutamyl Transferase 10 U/L (5-36)
[2024-10-12 11:24] LABS: ANCA Screen NEGATIVE (NEGATIVE)
[2024-10-12 11:25] LABS: Lactate Dehydrogenase 358 U/L (135-214)
[2024-10-12 11:33] LABS: Hepatitis B Surface AB < 3.5 (11.5-1000); Hepatitis B Surface Antigen Non-Reactive (Nonreactive)
[2024-10-12 11:33] LABS: Adenovirus Not Detected (NOT DETECT); Chlamydia Pneumoniae Not Detected (NOT DETECT); Coronavirus 229E,HKU1,NL63,OC4 Not Detected (NOT DETECT); Human Metapneumovirus Not Detected (NOT DETECT); Human Rhinovirus/Enterovirus Not Detected (NOT DETECT); Influenza A Not Detected (NOT DETECT); Influenza A H1 Not Detected (NOT DETECT); Influenza A H1-2009 Not Detected (NOT DETECT); Influenza A H3 Not Detected (NOT DETECT); Influenza B Not Detected (NOT DETECT); Mycoplasma Pneumoniae Not Detected (NOT DETECT); Parainfluenza Virus Type 1 Not Detected (NOT DETECT); Parainfluenza Virus Type 2 Not Detected (NOT DETECT); Parainfluenza Virus Type 3 Not Detected (NOT DETECT); Parainfluenza Virus Type 4 Not Detected (NOT DETECT); Respiratory Syncytial Virus A Not Detected (NOT DETECT); Respiratory Syncytial Virus B Not Detected (NOT DETECT); SARS-COV-2 Not Detected (NOT DETECT)
--- NOTE | 2024-10-12 11:55 | PC.NURSE ---
Failed NG placement per radiology. Dr. Reyes notified.
[2024-10-12 12:18] LABS: Hepatitis C Virus Antibody Non-Reactive (Nonreactive)
[2024-10-12 12:22] LABS: Creatine Phosphokinase 3478 U/L (26-192)
--- NOTE | 2024-10-12 14:17 | P.PN_ITS ---
Subjective 2 Subjective: No acute events night. Patient has remained hemodynamically stable. Febrile to the morning up to 100.4 Fahrenheit. Appreciate urine output in last 24 hours. Remains somnolent. Not on sedation. Appreciate ABG with ventilator settings of FiO2 30%, tidal volume 400 PEEP of 6. Vitals/I&O/Wt Last Vital Signs Temp 100.4 F H 10/12/24 07:45 Pulse 85 10/12/24 13:14 Resp 26 H 10/12/24 13:17 BP 159/61 10/12/24 12:48 Pulse Ox 93 10/12/24 13:17 O2 Del Method Mechanical Ventilation 10/12/24 13:14 O2 Flow Rate 15 10/05/24 20:17 FiO2 30 10/12/24 13:17 10/11/24 10/12/24 10/12/24 22:59 06:59 14:59 Intake Total 1110.5 / 1210.5 400 / 1610.5 350 / 350 Output Total 425 / 425 200 / 625 Balance 685.5 / 785.5 200 / 985.5 350 / 350 Weight last 48 hrs Weight 62.1 kg Physical Exam 2 Narrative: General: Intubated, currently not sedated, somnolent HENMT: normoceophalic Respiratory: Normal respiratory breath sounds all over lung [place] with occasional rhonchi and crackles bilaterally, left more than right, prozone more than lower zone Cardio: No JVD, regular rate, regular rhythm, S1 S2 normal, no murmurs. Abdomen: Soft, mildly distended. Bowel sounds are hypoactive. Neuro: Intubated, somnolent Extremity: Bilateral 2+ pitting edema to knees Data 10/12/24 08:00 10/12/24 03:35 Micro: Microbiology 10/11/24 10:35 Gram Stain - Final Sputum - Endotracheal Tube Aspirate Sputum Culture - Preliminary Yeast species 10/11/24 12:15 Bacterial Antigens - Final Urine Kidney A&P Assessment and plan (1) NSTEMI (non-ST elevated myocardial infarction): Post PCI for critical ostial LAD and left main. Appreciate cardiology recommendations. Continue with DAPT with aspirin, Plavix, statin, beta-koby with metoprolol 12.5 mg twice daily. Echocardiogram done shows EF of 45 to 50% grade 1 diastolic dysfunction, mild MR, mild TR with mild pulmonary hypertension. (2) Respiratory failure: Currently mechanically ventilated. On minimal ventilator support. Patient continues to have metabolic encephalopathy most likely in setting of uremia from renal dysfunction and hyponatremia. Remains off sedation since Friday. Continue to hold off sedation for now. Switch to pressure support and make patient work with ventilator for as long as possible. Can transition to full support overnight for resting. Once patient is more awake, alert and following directions with appropriate RSBI will plan for extubation. Oxygen supplementation keeping saturation over 88%. Continue with Pulmicort twice daily, continue with DuoNebs every 6 hour. (3) Acute kidney injury superimposed on CKD: Baseline creatinine around 1.5. Creatinine and uremia continues to worsen. Combination of ATN and RIRI. Associated with uremia, metabolic acidosis. Appreciate ABG showing compensated respiratory alkalosis with metabolic acidosis. Nephrology on board. Discussed center with nephrology. Plan for dialysis today. Will consult surgery for dialysis catheter placement. DPOA/patient's son is agreeable. Continue with IV albumin every 8 hours. Concern for fluid overload. Continue with the Lasix drip. Patient is getting ready for dialysis. Give metolazone 10 mg oral daily. Strict input output charting, daily weights. Medical reconciliation done for nephrotoxic drugs. CT on pelvis negative for obstructive nephropathy. (4) Acute metabolic encephalopathy: Most likely in setting of acute renal failure leading to uremia. Also has hyponatremia. Check ammonia levels. Continue to remain off sedation for now. Appreciate CT head. (5) Pneumonia: Concern for left upper lobe pneumonia. Sputum culture growing yeast. Patient having fever today. Switch to IV vancomycin and meropenem. MRSA swab positive. Add fluconazole IV for concerns for yeast in sputum Will plan to finish a 7-day course of antibiotics. Blood cultures never taken on admission. Patient spiking fever now. Check blood cultures. (6) COPD (chronic obstructive pulmonary disease): (7) Chronic hyponatremia: (8) UTI (urinary tract infection): (9) Lactic acidosis: (10) Metabolic acidosis: (11) Peripheral arterial disease with history of revascularization: (12) Benign hypertension: (13) Anemia: Plan Anemia: Patient's hemoglobin trending down today. 7.3. Repeat hemoglobin and hematocrit later in the day. Target hemoglobin more than 8. If persistently remains low we will plan to transfuse PRBC. Appreciate haptoglobin, reticulocyte count, iron panel, vitamin B12 and folate levels. Start on IV iron supplementation. No concerns of bleeding. Switch to Protonix 40 mg twice daily. Check stool for occult blood. Code Status: Full IVF: Stop IV fluids DVT PPx: heparin every 12 hourly GI PPx: Protonix 40 mg IV every 12 hourly ABx: Linezolid, Cefepime Diet: Start on tube feeds with Nepro 10 cc every hour, increase 10 cc every 4 hours for goal of 40 cc/h, free water flushes 100 cc every 6 hours Discharge plan: Back to SNF when stable. Discussed symptoms with patient's son Mr. Darrion Potter over the phone. All the questions were answered. PDMP PDMP Reviewed: Not Reviewed Attestations 2 Medical Necessity Statement*: Requested hospitalization for management of acute metabolic encephalopathy, ventilator dependence in setting of respiratory failure, post PCI for non-ST elevation MO, acute kidney injury with uremia and hyponatremia requiring hemodialysis Critical Care Time: The high probability of a clinically significant, sudden or life threatening deterioration of the patient's [cardiac, pulmonary, renal, neurology] system(s) required my full and direct attention, intervention and personal management. The critical care time is as shown. This time is in addition to time spent performing any reported procedures but includes the following: [x] Data and vital sign review and interpretation [x] Patient assessment, examination and intervention [x] Documentation [x] Medication orders and management Critical Care Time (min): 90 Coding Level of Care Code Critical Care >/= 30 minutes Critical care time (in minutes): 90 The high probability of a clinically significant, sudden or life threatening deterioration, as referenced in this documentation, required my full and direct attention, intervention and personal management. The critical care time shown is in addition to time spent performing any reported separately billable procedures and includes the following: [x] Data and vital sign review and interpretation [x ] Patient assessment, examination and intervention [x] Medication orders and management [x] Patient/Family updates as able [x] Care Coordination and Documentation. Other Coding Information This patient has a high probability of clinically significant, sudden or life threatening deterioration of the patient's (neurological/pulmonary/cardiac/renal/ID/endocrine) systems required my full, direct attention, the highest level of physician preparedness for urgent intervention and personal management. I managed/supervised life or organ supporting interventions that required frequent physician assessment. I devoted my full attention in the ICU to the direct care of this patient for the period of time indicated above. Time I spent with family or surrogate(s) is included only if the patient was incapable of providing necessary information or participating in decision making. This time includes the following services provided: Telemetry review Mechanical Ventilation Hemodynamic interpretation, assessment and management Review and interpretation of CXR Review and interpretation of lab values Review and interpretation of microbiologic data and culture results Review of medications and administration Review and interpretation of Nutrition requirements and management Discussion of management with other consultants and services Clinical update to family members Diagnoses NSTEMI (non-ST elevated myocardial infarction) I21.4 Respiratory failure J96.90 Acute kidney injury superimposed on CKD N17.9; N18.9 Acute metabolic encephalopathy G93.41 Pneumonia due to infectious organism, unspecified laterality, unspecified part of lung J18.9 Laterality: unspecified laterality Lung location: unspecified part of lung Pneumonia type: due to unspecified organism Other emphysema J43.8 COPD type: emphysema Emphysema type: other Chronic hyponatremia E87.1 UTI (urinary tract infection) N39.0 Lactic acidosis E87.20 Metabolic acidosis E87.20 Peripheral arterial disease with history of revascularization I73.9; Z98.890 Benign hypertension I10 Anemia D64.9
[2024-10-12 14:59] LABS: Anti-Nuclear Antibody Pattern Nuclear, Nucleolar; Anti-Nuclear Antibody Screen POSITIVE (NEGATIVE)
[2024-10-12] MEDS: pantoprazole 40 mg SDV IVP (15:04)
[2024-10-12] MEDS: fluconazole premix 200 MG/100 ML PREMIX 100 MG IV (15:14)
--- NOTE | 2024-10-12 16:00 | PHA.VACGOAL ---
Vancomycin Goal - Goal Vancomycin Goal:: 15-20 mg/L Vancomycin Indication:: Other - Therapy Current therapy:: Meropenem Day of therpy:: Day []of [] . Actual body weight (kg): 136 lb 14.513 oz - Data Labs: WBC 10.85 10^3/uL (3.29-11.43) 10/12/24 08:00 Corrected WBC Cancelled 10/12/24 03:35 RBC 2.68 10^6/uL (3.85-5.65) L 10/12/24 08:00 Hgb 7.90 g/dL (11.27-16.99) L 10/12/24 08:00 Hct 23.7 % (36-47) L 10/12/24 08:00 MCV 88.4 fl (85-98) 10/12/24 08:00 MCH 29.5 pg (27-33) 10/12/24 08:00 MCHC 33.3 g/dL (30-55) 10/12/24 08:00 RDW 13.7 % (12.1-15.1) 10/12/24 08:00 Sodium 126 mmol/L (136-145) L 10/12/24 03:35 Potassium 3.7 mmol/L (3.5-5.1) 10/12/24 03:35 Chloride 89 mmol/L (98-107) L 10/12/24 03:35 Carbon Dioxide 16 mmol/L (22-29) L 10/12/24 03:35 Anion Gap 24.7 (5-19) H 10/12/24 03:35 BUN 67 mg/dL (8-23) H 10/12/24 03:35 Creatinine 3.7 mg/dL (0.5-0.9) H 10/12/24 03:35 GFR Calculation Not Reportable 10/12/24 03:35 Last dialysis session:: N/A Treatment plan:: new consult Regimen:: PULSE DOSING DUE TO RENAL FUNCTION PER DOSING PROTOCOL. 1250 MG LOADING DOSE GIVEN X 1. WILL OBTAIN TROUGH 24 HOURS POST LOADING DOSE. Follow up:: TROUGH 10/12 @0930
[2024-10-12] MEDS: iron sucrose 200 MG in sodium chloride 0.9% (100 ml) 100 ML 220 MG IV (16:12)
[2024-10-12 17:41] LABS: Hematocrit 21.5 % (36-47)
[2024-10-12 18:03] LABS: Ammonia 12 umol/L (11-51); Anion Gap 25.2 (5-19); Blood Urea Nitrogen 62 mg/dL (8-23); Calcium 7.9 mg/dL (8.5-10.5); Carbon Dioxide 18 mmol/L (22-29); Chloride 89 mmol/L (98-107); Glucose 79 mg/dL (65-115); Osmolality Calculated 285 mOsm/kg (285-295); Potassium 3.2 mmol/L (3.5-5.1); Sodium 129 mmol/L (136-145)
--- NOTE | 2024-10-12 18:46 | PC.NURSE ---
Stopped lasix gtt per Dr Reyes before diaylsis.
[2024-10-12] MEDS: potassium chloride ER 20 mEq Tablet 40 MEQ PO (21:17)
[2024-10-12 23:34] LABS: Glucose Point of Care 100 mg/dL (70-110)
[2024-10-13] VITALS (317 sets, daily range): BP systolic 157–220; BP diastolic 48–141; PULSE 67–114; RESP 16–27; TEMP 37–37.5; O2SAT 83–100
[2024-10-13] MEDS: hyDRALAzine 20 mg/mL INJ 1 mL 10 MG IVP ×5 (00:34→23:38)
[2024-10-13] MEDS: chlorhexidine gluconate 4% Btl 118 mL 1 APPLIC TOPICAL ×2 (01:46→09:19)
[2024-10-13] MEDS: pantoprazole 40 mg SDV IVP ×2 (01:46→15:41)
[2024-10-13] MEDS: ipratropium-albuterol 3 mL Neb INHALATION ×4 (03:09→19:51)
[2024-10-13 03:43] LABS: ABG PH Result 7.48 (7.35-7.45); Alveolar-Arterial Oxygen Gradi 7.9 mmHg (5-10); Arterial Blood Gas Hematocrit 30.2 % (37-47); Base Excess ABG -2.2 mmol/L (-2.0-2.0); Blood Gas Allen Test Pos; Blood Gas Operator Identificat JDB; Blood Gas Sample Site Radial, right; Blood Gas Sample Type Arterial; Carboxyhemoglobin 0.8 %THgb (0.4-20.1); HCO3 ABG 20.6 mmol/L (22-26); HGB O2 Sat 96.7 % (95-100); Ionized Calcium Level - ABG 1.1 mmol/L (1.1-1.4); Methemoglobin 1.2 % (0.4-1.5); Oxygen Device VENT; Oxygen Saturation ABG 98.6; PO2 FiO2 Ratio Arterial Blood 367; Potassium Level - ABG 3.4 mmol/L (3.5-5.0); Total Hemoglobin 9.8 g/dL (12-16)
[2024-10-13 05:40] LABS: Basophils % 0.2 %; Eosinophils % 0.2 %; Hematocrit 26.4 % (36-47); Lymphocytes # 0.3 10^3/uL (0.8-4.8); Lymphocytes % 3.4 %; Mean Corpuscular HGB Conc 33.7 g/dL (30-55); Mean Corpuscular Hemoglobin 29.5 pg (27-33); Mean Corpuscular Volume 87.4 fl (85-98); Monocytes # 0.4 10^3/uL (0.2-0.9); Monocytes % 5.1 %; Neutrophils # 7.75 10^3/uL (1.8-7.7); Neutrophils % 89.8 %; Nucleated Red Blood Cells % 0 %; Platelet Count 94 10^3/cmm (157-399); Red Blood Count 3.02 10^6/uL (3.85-5.65); Red Cell Distribution Width 13.5 % (12.1-15.1); White Blood Count 8.63 10^3/uL (3.29-11.43)
[2024-10-13 05:56] LABS: Alanine Aminotransferase 44 U/L (0-33); Albumin Level 3.4 g/dL (3.5-5.2); Alkaline Phosphatase 70 U/L (35-105); Anion Gap 23.3 (5-19); Aspartate Amino Transferase 101 U/L (0-32); Blood Urea Nitrogen 47 mg/dL (8-23); Calcium 8.2 mg/dL (8.5-10.5); Carbon Dioxide 19 mmol/L (22-29); Chloride 94 mmol/L (98-107); Globulin 2.7 g/dL (1.3-4.6); Glucose 109 mg/dL (65-115); Magnesium 1.8 mg/dL (1.7-2.3); Osmolality Calculated 289 mOsm/kg (285-295); Phosphorus 4.3 mg/dL (2.5-4.5); Potassium 3.3 mmol/L (3.5-5.1); Sodium 133 mmol/L (136-145); Total Bilirubin 0.5 mg/dL (0.15-1.2); Total Protein 6.1 g/dL (6.6-8.7)
--- NOTE | 2024-10-13 06:00 | XRR_ITS ---
PROCEDURE INFORMATION: Exam: XR Chest Exam date and time: 10/13/2024 4:32 AM Age: 79 years old Clinical indication: Condition or disease; Other: Daily vented PT; Additional info: Intubated TECHNIQUE: Imaging protocol: Radiologic exam of the chest. Views: 1 view. COMPARISON: CR XR chest 1V portable [id number] 10/12/2024 11:37 AM FINDINGS: Tubes, catheters and devices: The endotracheal tube and nasogastric tube are stable. Lungs: There are worsening infiltrates in the left upper lobe and right lower lobe. There is worsening pulmonary vascular congestion with a component of pulmonary edema suspected. Pleural spaces: Suspected small bilateral pleural effusions. Heart/Mediastinum: The heart size is stable. Bones/joints: Unremarkable. XR/XR chest 1V portable [id number] IMPRESSION: 1. Worsening infiltrates in each lung, particularly the left upper lobe and right lower lobe concerning for multifocal pneumonia. 2. Worsening pulmonary vascular congestion. A component of pulmonary edema is suspected.
[2024-10-13 06:16] LABS: Creatine Phosphokinase 4195 U/L (26-192)
--- NOTE | 2024-10-13 07:03 | PM.HP ---
Providers/Chief Complaint Admitting Physician: Chza Stein M.D Primary Care Provider: Aakash Estrella MD Chief Complaint: Chest pain/ Shortness of breath History of Present Illness Maria Isabel Ho is a 79 year old female was found down at [facility]. She does not recall her fall or being found down. Patient does know that she is here because of her leg but did not know what kind of facility this was or the name of the facility. She does not know her age or the date or year. She thought she was 83. Currently patient is pleasantly demented and not a good historian. She is companied by her daughter Linda and son-in-law Valdemar. [facility] until she no longer recognized her staff and locked the RNs out. She was kicking at people and tried to pull the screen out of the window to escape. Patient had become paranoid and afraid of men. She escaped out the door wants and so 3 weeks ago was transferred over to [place]. She is on medications which have made a tremendous improvement. She is now pleasantly demented Daughter reports patient has never had OH, stroke or lung disease. She has never been a smoker user of alcohol or drugs. 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 She is now reasonably happy with the medication changes. Dementia started 8 years ago. She does not always recognize her daughter and son-in-law Review of Systems Narrative: Taken from daughter patient has not had chest pain nausea vomiting or recent urinary tract infection symptoms. Medications/Allergies Home Medications ?Medication ?Instructions ?Recorded ?Confirmed ?Last Taken ?Type aspirin 81 mg tablet,delayed 81 mg PO QAM 05/06/20 10/06/24 02/29/24 History release clopidogrel 75 mg tablet 75 mg PO QAM 05/06/20 10/06/24 02/25/24 History lovastatin 40 mg tablet 40 mg PO QAM 05/06/20 10/06/24 02/25/24 History bisacodyl 10 mg rectal suppository [address] DAILY PRN Constipation 04/18/22 10/06/24 Unknown History levothyroxine 88 mcg tablet 88 mcg PO QAM 04/18/22 10/06/24 02/29/24 History magnesium hydroxide 400 mg/5 mL 30 ml PO DAILY PRN Constipation 04/18/22 10/06/24 Unknown History oral suspension (Milk of Magnesia) polyethylene glycol 3350 17 17 g PO DAILY PRN Constipation 04/18/22 10/06/24 Unknown History gram/dose oral powder sennosides 8.6 mg tablet (senna) 8.6 mg PO DAILY PRN Constipation 04/18/22 10/06/24 Unknown History hydroxyzine HCl 10 mg tablet 10 mg PO DAILY PRN Anxiety 08/16/22 10/06/24 06/11/23 History amlodipine 2.5 mg tablet 2.5 mg PO BID 05/07/23 10/06/24 03/01/24 History ferrous sulfate 325 mg (65 mg 325 mg PO QAM 05/07/23 10/06/24 02/29/24 History iron) tablet losartan 50 mg tablet 50 mg PO BID 05/07/23 10/06/24 02/29/24 History aluminum-mag hydroxide-simethicone 30 ml PO Q4H PRN Indigestion 06/12/23 10/06/24 Unknown History 200 mg-200 mg-20 mg/5 mL oral susp carboxymethylcellulose sodium 1 % 1 drp ophthalmic (eye) Q4H PRN Dry 06/12/23 10/06/24 02/29/24 History eye drops (Artificial Tears Eyes (carboxymethylcellulose)) cyanocobalamin (vitamin B-12) 500 500 mcg PO QAM 06/12/23 10/06/24 02/29/24 History mcg tablet naloxone 2 mg/2 mL syringe kit 2 mg IM Q3M PRN Opioid Overdose 06/12/23 10/06/24 Unknown History hydralazine 100 mg tablet 100 mg PO TID #270 tabs 08/06/23 10/06/24 02/29/24 Rx buspirone 10 mg tablet 10 mg PO BID 09/25/23 10/06/24 02/29/24 History acetaminophen 325 mg tablet 650 mg PO Q6H PRN Pain or temp 02/04/24 10/06/24 02/29/24 History pantoprazole 40 mg tablet,delayed 40 mg PO DAILY 02/25/24 10/06/24 02/29/24 History release cefdinir 300 mg capsule 300 mg PO BID 7 days #14 caps 10/05/24 10/06/24 Unknown Rx levofloxacin 750 mg tablet 750 mg PO Q48H 10 days #5 tabs 10/05/24 10/06/24 Unknown Rx Lactobacillus acidophilus 1,000 mmu cells PO QAM for 21 days 10/06/24 10/06/24 Unknown History (Acidophilus capsule) escitalopram oxalate 20 mg tablet 20 mg PO DAILY 10/06/24 10/06/24 Unknown History (Lexapro) ipratropium 0.5 mg-albuterol 3 mg 3 ml inhalation Q4H pneumonia 10/06/24 10/06/24 Unknown History (2.5 mg base)/3 mL nebulization soln ipratropium 0.5 mg-albuterol 3 mg 3 ml inhalation QID 10/06/24 10/06/24 Unknown History (2.5 mg base)/3 mL nebulization soln melatonin 5 mg tablet 5 mg PO BEDTIME 10/06/24 10/06/24 Unknown History zinc sulfate 50 mg zinc (220 mg) 50 mg PO QAM 10/06/24 10/06/24 Unknown History tablet Allergies Allergy/AdvReac Type Severity Reaction Status Date / Time Penicillins Allergy ALGY-Hives Verified 10/05/24 20:36 tetracycline Allergy ALGY-Hives Verified 10/05/24 20:36 PFSH Acute PFSH: Medical History Bicytopenia Peripheral arterial disease with history of revascularization Bradycardia Chronic hyponatremia Exertional dyspnea COPD exacerbation Orthostatic hypotension Syncope COPD (chronic obstructive pulmonary disease) Hx of type 2 diabetes mellitus Peripheral vascular disease Hx of chest pain History of hypertension Frequent falls Hx of hyperlipidemia Chronic back pain Postmenopausal Impaired physical mobility Hx of renal calculi Smoker Chronic kidney disease (CKD) Surgical History Hx of tubal ligation Family History Grandmother Clotting disorder Brother Cancer Diabetes Stroke Son Chronic kidney disease (CKD) Mother Diabetes Father Stroke Denies family history of CAD (coronary artery disease) Dementia Suicide Anesthesia complication Bleeding disorder Lung disease Social History Smoking and tobacco/nicotine status: current some day tobacco/nicotine user Alcohol intake: never Substance/Drug Use: never Vitals/I&O/Wt Last Vital Signs Temp 98.7 F 10/13/24 04:57 Pulse 82 10/13/24 05:46 Resp 22 H 10/13/24 03:10 BP 195/83 10/13/24 04:42 Pulse Ox 95 10/13/24 04:42 O2 Del Method Mechanical Ventilation 10/13/24 03:09 O2 Flow Rate 15 10/05/24 20:17 FiO2 28 10/13/24 03:10 10/12/24 10/13/24 10/13/24 22:59 06:59 14:59 Intake Total 403.583 / 753.583 450 / 1203.583 Output Total 3260 / 3260 250 / 3510 Balance -2856.417 / -2506.417 200 / -2306.417 Weight last 48 hrs Weight 65.363 kg Weight 62.5 kg Weight 62.1 kg Data 10/13/24 05:05 10/13/24 05:05 Micro: Microbiology 10/13/24 05:05 Blood Culture - Preliminary Blood SPECIMEN COLLECTED 10/12/24 17:27 Blood Culture - Preliminary Blood SPECIMEN COLLECTED 10/11/24 10:35 Gram Stain - Final Sputum - Endotracheal Tube Aspirate Sputum Culture - Preliminary Yeast species A&P PDMP PDMP Reviewed: Not Reviewed Coding Level of Care Code Acute Code for Chg Fwd
--- NOTE | 2024-10-13 07:30 | XR_ITS ---
WS: [id number] Exam: XR chest 1V portable [id number] Date/Time of Exam: 10/13/2024 7:55 AM Reason For Exam: Post PICC insertion Comparison with the latest exam performed on 10/13/2024 at 4:33 a.m. A left-sided PICC line has been inserted and appears to end in the lower one third of the SVC in satisfactory location. There are diffuse interstitial infiltrates throughout both lungs. Small right-sided pleural effusion noted. No new pneumothorax. Possible LEFT small pleural effusion. Heart size within normal limits for technique. The mediastinum does not appear to be widened. ET tube in satisfactory position ending about 5 cm above the belem. An enteric tube is looped in the stomach with the tip directed back toward the GE junction. Bony structures are intact. XR/XR chest 1V portable [id number] IMPRESSION: 1. Left-sided PICC line ending in the lower one third of the SVC in satisfactor y location. ET tube remains in satisfactory position unchanged. Enteric tube in the stomach unchanged. 2. Improved diffuse interstitial infiltrates throughout both lungs. Small bila teral pleural effusions.
--- NOTE | 2024-10-13 07:40 | PC.NURSE ---
Ordered fluids not given per Dr. Briceno orders.
[2024-10-13] MEDS: budesonide 0.5 mg/2 mL Neb INHALATION ×2 (07:45→19:51)
--- NOTE | 2024-10-13 08:33 | PICC.NOTE ---
Triple lumen PICC placed to left brachial vein. Referred to vascular access nurse for PICC placement due to poor access and provider request. Risks and benefits discussed and informed consent obtained from pt son via phone prior to this nurse arrival to unit. Right arm noted to have peripheral IV in basilic vein. Left arm assessed with left brahical vein measuring 4.0 mm, straight, and apparent best choice for placement. Using sterile technique and MST, left brachial vein accessed x 1 stick. Mid-arm circumference measured 10 cm from left AC 28 cm. Trimmed cath 37 cm with 1 cm external length noted. CXR shows tip in distal third of the SVC, in satisfactory position for use per radiologist. Line secured with stat-lock. Insertion site covered with Biopatch and TSM. Left upper arm peripheral IV removed. Pressure held to both sites due to bleeding. Report given to bedside nurse, JESSENIA Kay.
[2024-10-13] MEDS: potassium chloride ER 20 mEq Tablet 40 MEQ PO (08:57)
[2024-10-13] MEDS: albumin 25 G/100 ML BAG 60 G IV ×3 (09:01→23:38)
[2024-10-13 09:10] LABS: Glucose Point of Care 140 mg/dL (70-110)
[2024-10-13] MEDS: meropenem 500 mg SDV 1000 MG IVP (09:14)
[2024-10-13] MEDS: heparin 5,000 unit/mL INJ 1 mL 5000 UNIT SUBCUT (09:29)
[2024-10-13] MEDS: metoprolol tartrate 25 mg Tablet 50 MG PO (09:32)
[2024-10-13] MEDS: aspirin 81 mg EC Tablet PO (09:32)
[2024-10-13] MEDS: metOLazone 5 MG Tablet 10 MG PO (09:32)
[2024-10-13] MEDS: amlodipine 5 mg Tablet PO (09:32)
[2024-10-13] MEDS: clopidogrel 75 mg Tablet PO (09:32)
--- NOTE | 2024-10-13 09:39 | P.PN_ITS ---
<Statement entered by Chaz Stein M.D - 10/18/24 14:22> Patient was cared for in conjunction with an advanced practice practitioner.? I reviewed the chart and all pertinent data including imaging, telemetry, and laboratory results.? I discussed the patient in detail with the advanced practice practitioner.? Please see?their note for progress note, testing results and agreed upon plan of care for the patient. Subjective 2 Subjective: Patient still unable to be extubated. Not making much purposeful movement at this time. She did get dialysis yesterday. Blood pressure is significantly elevated. She is making urine. Creatinine down to 3. Chest x-ray looks improved this morning. Vitals/I&O/Wt Last Vital Signs Temp 99.3 F 10/13/24 09:34 Pulse 88 10/13/24 09:34 Resp 26 H 10/13/24 09:16 BP 173/58 10/13/24 09:34 Pulse Ox 94 10/13/24 09:34 O2 Del Method Mechanical Ventilation 10/13/24 07:48 O2 Flow Rate 15 10/05/24 20:17 FiO2 28 10/13/24 09:16 10/12/24 10/13/24 10/13/24 22:59 06:59 14:59 Intake Total 403.583 / 753.583 450 / 1203.583 Output Total 3260 / 3260 250 / 3510 Balance -2856.417 / -2506.417 200 / -2306.417 Weight last 48 hrs Weight 144 lb 1.6 oz Weight 137 lb 12.623 oz Weight 136 lb 14.513 oz Physical Exam 2 Narrative: General: Intubated HENMT: normoceophalic Respiratory: Normal respiratory effort, Course bilateral upper and lower lobes throughout, no use of accessory muscles Cardio: No JVD, regular rate, regular rhythm, S1 S2 normal, no murmurs, peripheral pulses 2+ radial palpated bilaterally Extremities: Full ROM, normal, normal capillary refill, no cyanosis or edema Neuro: Intubated Skin: Right fem stick sites clean dry intact well-approximated no signs of hematoma soft Data 10/13/24 05:05 10/13/24 05:05 Micro: Microbiology 10/13/24 05:05 Blood Culture - Preliminary Blood SPECIMEN COLLECTED 10/12/24 17:27 Blood Culture - Preliminary Blood SPECIMEN COLLECTED 10/11/24 10:35 Gram Stain - Final Sputum - Endotracheal Tube Aspirate Sputum Culture - Preliminary Yeast species A&P Assessment and plan (1) Unstable angina: (2) Peripheral arterial disease with history of revascularization: (3) Paroxysmal atrial flutter: (4) Benign hypertension: (5) Chronic kidney disease (CKD): (6) Pneumonia: (7) NSTEMI (non-ST elevated myocardial infarction): Plan Patient had PCI of left main to proximal LAD with 2 stents. On aspirin and Plavix. Echo shows mildly reduced LV systolic function. Creatinine has improved. She got dialysis last night. She is making urine. Patient is being seen by nephrology. Appreciate their assistance. Patient is now off of pressors and bp elevated. Adding amlodipine 5 mg daily, increasing metoprolol to 50 BID, hydralazine 10 mg q4 prn systolic bp at or above 170. Will check back in the afternoon. If bp still high after adjustments, will add another 5 mg of amlodipine. She is getting lasix 80 mg IV today as well as Metolazone 5 mg today. Hemoglobin stable at 8.9/26.4. Hospitalist team is onboard as well. We appreciate their assistance. Medicine team on board for management of medical issues and vent management. Appreciate assistance. Antibiotic therapy for UTI/pneumonia. PDMP PDMP Reviewed: Not Reviewed Attestations 2 Medical Necessity Statement*: Acute VT, acute respiratory failure, patient on ventilator Coding Level of Care Code Acute Code for [facility] Fwd Diagnoses Unstable angina I20.0 Peripheral arterial disease with history of revascularization I73.9; Z98.890 Paroxysmal atrial flutter I48.92 Benign hypertension I10 Chronic kidney disease, unspecified CKD stage N18.9 Chronic kidney disease stage: unspecified stage Pneumonia due to infectious organism, unspecified laterality, unspecified part of lung J18.9 Laterality: unspecified laterality Lung location: unspecified part of lung Pneumonia type: due to unspecified organism NSTEMI (non-ST elevated myocardial infarction) I21.4
[2024-10-13] MEDS: heparin, porcine 1,000 unit/mL INJ 10 mL 1000 UNIT IV (09:45)
[2024-10-13] MEDS: heparin, porcine 1,000 unit/mL INJ 10 mL 10000 UNIT INTRACATH (09:45)
[2024-10-13 09:53] LABS: Vancomycin Trough 14.1 ug/mL (10-15)
[2024-10-13 11:11] LABS: Glucose Point of Care 145 mg/dL (70-110)
[2024-10-13] MEDS: insulin lispro 100 unit/1 mL SUBCUT ×2 (11:52→19:43)
--- NOTE | 2024-10-13 13:43 | XR_ITS ---
WS: [id number] Exam: XR chest 1V portable [id number] Date/Time of Exam: 10/13/2024 1:47 PM Reason For Exam: confirm OG placement Compared to the earlier study performed on the same day at 7:59 a.m. Bilateral pulmonary infiltrates are unchanged. Heart size remains normal. The mediastinum is not widened. ET tube, enteric tube and left-sided PICC line all remain in good position unchanged. Small RIGHT pleural effusion noted. XR/XR chest 1V portable [id number] IMPRESSION: 1. Overall appearance of the chest is unchanged since the earlier study perform ed on the same day.
--- NOTE | 2024-10-13 14:19 | P.PN_ITS ---
Subjective 2 Subjective: No acute events overnight. Patient has remained of sedation. Slightly more awake today. Grimacing to painful stimulus. Still not following directions. Today morning seen on pressure support. Saturating well over 90%. Appreciate urine output. Underwent 1 session of dialysis yesterday. Received 1 unit of PRBC yesterday. Vitals/I&O/Wt Last Vital Signs Temp 99.3 F 10/13/24 09:34 Pulse 86 10/13/24 13:37 Resp 25 H 10/13/24 13:40 BP 163/51 10/13/24 12:06 Pulse Ox 100 10/13/24 13:40 O2 Del Method Mechanical Ventilation 10/13/24 13:37 O2 Flow Rate 15 10/05/24 20:17 FiO2 28 10/13/24 13:40 10/12/24 10/13/24 10/13/24 22:59 06:59 14:59 Intake Total 403.583 / 753.583 450 / 1203.583 100 / 100 Output Total 3260 / 3260 250 / 3510 Balance -2856.417 / -2506.417 200 / -2306.417 100 / 100 Weight last 48 hrs Weight 65.363 kg Weight 62.5 kg Weight 62.1 kg Physical Exam 2 Narrative: General: Intubated, currently not sedated, somnolent HENMT: normoceophalic Respiratory: Normal respiratory breath sounds all over lung [place] with occasional rhonchi and crackles bilaterally, left more than right, prozone more than lower zone Cardio: No JVD, regular rate, regular rhythm, S1 S2 normal, no murmurs. Abdomen: Soft, mildly distended. Bowel sounds are hypoactive. Neuro: Intubated, somnolent Extremity: Bilateral 2+ pitting edema up to knees Data 10/13/24 05:05 10/13/24 05:05 Micro: Microbiology 10/13/24 05:05 Blood Culture - Preliminary Blood SPECIMEN COLLECTED 10/12/24 17:27 Blood Culture - Preliminary Blood SPECIMEN COLLECTED 10/11/24 10:35 Gram Stain - Final Sputum - Endotracheal Tube Aspirate Sputum Culture - Preliminary Yeast species A&P Assessment and plan (1) NSTEMI (non-ST elevated myocardial infarction): Post PCI for critical ostial LAD and left main. Appreciate cardiology recommendations. Continue with DAPT with aspirin, Plavix, statin, beta-koby with metoprolol 12.5 mg twice daily. Echocardiogram done shows EF of 45 to 50% grade 1 diastolic dysfunction, mild MR, mild TR with mild pulmonary hypertension. (2) Respiratory failure: Currently mechanically ventilated. On minimal ventilator support. Patient continues to have metabolic encephalopathy most likely in setting of uremia from renal dysfunction and hyponatremia. Remains off sedation since Friday. Continue to hold off sedation for now. Switch to pressure support and make patient work with ventilator for as long as possible. Can transition to full support overnight for resting. Once patient is more awake, alert and following directions with appropriate RSBI will plan for extubation. Oxygen supplementation keeping saturation over 88%. Continue with Pulmicort twice daily, continue with DuoNebs every 6 hour. (3) Acute kidney injury superimposed on CKD: Baseline creatinine around 1.5. Creatinine and uremia continues to worsen. Combination of ATN and RIRI. Associated with uremia, metabolic acidosis. Appreciate ABG showing compensated respiratory alkalosis with metabolic acidosis. Nephrology on board. Discussed center with nephrology. Plan for dialysis today. Will consult surgery for dialysis catheter placement. DPOA/patient's son is agreeable. Continue with IV albumin every 8 hours. Concern for fluid overload. Continue with the Lasix drip. Patient is getting ready for dialysis. Give metolazone 10 mg oral daily. Strict input output charting, daily weights. Medical reconciliation done for nephrotoxic drugs. CT on pelvis negative for obstructive nephropathy. (4) Acute metabolic encephalopathy: Most likely in setting of acute renal failure leading to uremia. Also has hyponatremia. Check ammonia levels. Continue to remain off sedation for now. Appreciate CT head. (5) Pneumonia: Concern for left upper lobe pneumonia. Sputum culture growing yeast. Patient having fever today. Switch to IV vancomycin and meropenem. MRSA swab positive. Add fluconazole IV for concerns for yeast in sputum Will plan to finish a 7-day course of antibiotics. Blood cultures never taken on admission. Patient spiking fever now. Check blood cultures. (6) Uremia: (7) Anemia: (8) COPD (chronic obstructive pulmonary disease): (9) Chronic hyponatremia: (10) UTI (urinary tract infection): (11) Lactic acidosis: (12) Metabolic acidosis: (13) Peripheral arterial disease with history of revascularization: (14) Benign hypertension: Plan Anemia: Hemoglobin taget more than 8. Post 1 unit of blood. Appreciate haptoglobin, reticulocyte count, iron panel, vitamin B12 and folate levels. C/w IV iron supplementation. No concerns of bleeding. Switch to Protonix 40 mg twice daily. Check stool for occult blood. Plan for the day: Care discussed in detail with nephrology. Will plan for 1 more session of dialysis. Patient's hyponatremia is resolving, urea level down to 47. Patient slightly more awake today. If BUN and sodium levels further improve the next 24-hour, will plan to extubate. Will continue to monitor mentation. Continue with IV albumin every 8 hourly. Monitor renal functions daily. Post to monitor blood transfusion. Hemoglobin appropriately up to 8.9. Appreciate iron panel. Continue with IV iron supplementation. Patient developing thrombocytopenia. Down to 94,000.Baseline 200 on admission. Thrombocytopenia could be in setting of significant uremia. Given more than 50% drop in platelet count with plan for peripheral smear, HIT panel. Hold off on heparin for now. SCD for DVT prophylaxis. PICC line placed today. Continue with DAPT. Goal blood pressure less than 140/90 mmHg. Blood pressure is elevated. Will change metoprolol to Coreg 12.5 mg twice daily, amlodipine added as per cardiology team. IV hydralazine 10 mg every 4 hours as needed for systolic of more than 160 mmHg. Appreciate culture results. For now continue with IV vancomycin and meropenem as per creatinine clearance. Added fluconazole given concerns for Bobbi in sputum culture. Code Status: Full IVF: Stop IV fluids DVT PPx: Hold heparin given concerns for platelet count drop of more than 50%. SCD for DVT prophylaxis. GI PPx: Protonix 40 mg IV every 12 hourly ABx: Linezolid, Cefepime Diet: Continue Nepro at goal of 40 cc/h, free water flushes 100 cc every 6 hours Discharge plan: Back to SNF when stable. Discussed symptoms with patient's son Mr. Darrion oH over the phone. Discussed unfortunately patient's mentation is still extremely poor but slightly improving with dialysis. Discussed plan would be to continue dialysis for 1 more day and if her oxygen saturations remain stable to possibly extubated tomorrow. Discussed as a possibility if her mentation does not improve she might not tolerate extubation well or might have desaturation later in admission in which she might need to be put back on ventilator. Discussed further goals of care regarding her baseline comorbidities. Son states he would discuss further with his brothers and would get back to us to see if they would want her to go back on ventilator if need be. For now CODE STATUS will remain full code. PDMP PDMP Reviewed: Not Reviewed Attestations 2 Medical Necessity Statement*: Requires further hospitalization for management of metabolic encephalopathy, ventilator dependence, respiratory failure, acute kidney injury with uremia and hyponatremia requiring temporary hemodialysis in a patient with admitted for non-ST elevation [place] post PCI Critical Care Time: The high probability of a clinically significant, sudden or life threatening deterioration of the patient's [neurology, cardiology, renal] system(s) required my full and direct attention, intervention and personal management. The critical care time is as shown. This time is in addition to time spent performing any reported procedures but includes the following: [x] Data and vital sign review and interpretation [x] Patient assessment, examination and intervention [x] Documentation [x] Medication orders and management Coding Level of Care Code Critical Care >/= 30 minutes Critical care time (in minutes): 70 The high probability of a clinically significant, sudden or life threatening deterioration, as referenced in this documentation, required my full and direct attention, intervention and personal management. The critical care time shown is in addition to time spent performing any reported separately billable procedures and includes the following: [x] Data and vital sign review and interpretation [x ] Patient assessment, examination and intervention [x] Medication orders and management [x] Patient/Family updates as able [x] Care Coordination and Documentation. Other Coding Information This patient has a high probability of clinically significant, sudden or life threatening deterioration of the patient's (neurological/pulmonary/cardiac/renal/ID/endocrine) systems required my full, direct attention, the highest level of physician preparedness for urgent intervention and personal management. I managed/supervised life or organ supporting interventions that required frequent physician assessment. I devoted my full attention in the ICU to the direct care of this patient for the period of time indicated above. Time I spent with family or surrogate(s) is included only if the patient was incapable of providing necessary information or participating in decision making. This time includes the following services provided: Telemetry review Mechanical Ventilation Hemodynamic interpretation, assessment and management Review and interpretation of CXR Review and interpretation of lab values Review and interpretation of microbiologic data and culture results Review of medications and administration Review and interpretation of Nutrition requirements and management Discussion of management with other consultants and services Clinical update to family members Diagnoses NSTEMI (non-ST elevated myocardial infarction) I21.4 Respiratory failure J96.90 Acute kidney injury superimposed on CKD N17.9; N18.9 Acute metabolic encephalopathy G93.41 Pneumonia due to infectious organism, unspecified laterality, unspecified part of lung J18.9 Laterality: unspecified laterality Lung location: unspecified part of lung Pneumonia type: due to unspecified organism Uremia N19 Anemia D64.9 Other emphysema J43.8 COPD type: emphysema Emphysema type: other Chronic hyponatremia E87.1 UTI (urinary tract infection) N39.0 Lactic acidosis E87.20 Metabolic acidosis E87.20 Peripheral arterial disease with history of revascularization I73.9; Z98.890 Benign hypertension I10
--- NOTE | 2024-10-13 14:30 | PC.SOCIAL ---
IMM Updated Pt is still intubated. She is not expected to d/c within the next 24-48hrs. Provided pt a copy. Initialed, dated, & timed copy and print associate in chart.
--- NOTE | 2024-10-13 14:53 | P.PN_ITS ---
Subjective 2 Subjective: remain on vent s/p HD yesterday Medications: Reviewed: Yes Vitals/I&O/Wt Last Vital Signs Temp 98.6 F 10/13/24 20:00 Pulse 69 10/13/24 20:12 Resp 16 10/13/24 19:57 BP 169/90 10/13/24 20:12 Pulse Ox 94 10/13/24 20:12 O2 Del Method Mechanical Ventilation 10/13/24 19:52 O2 Flow Rate 15 10/05/24 20:17 FiO2 28 10/13/24 19:57 10/13/24 10/13/24 10/13/24 06:59 14:59 22:59 Intake Total 450 / 1203.583 100 / 100 1670 / 1770 Output Total 250 / 3510 4651 / 4651 Balance 200 / -2306.417 100 / 100 -2981 / -2881 Weight last 48 hrs Weight 66 kg Weight 65.363 kg Weight 62.5 kg Weight 62.1 kg Physical Exam 2 Narrative: The patient is intubated. Her vent settings are minimal HEENT normocephalic atraumatic neck is supple lungs- b/l crackles Heart is regular. Abdomen is soft positive bowel sounds Extremities do not have edema. Data 10/13/24 05:05 10/13/24 05:05 Micro: Microbiology 10/12/24 17:27 Blood Culture - Preliminary Blood NEGATIVE TO DATE 10/13/24 05:05 Blood Culture - Preliminary Blood SPECIMEN COLLECTED A&P Assessment and plan (1) Acute kidney injury superimposed on CKD: 79-year-old lady diabetic hypertensive CKD, EF of 45% with grade 1 diastolic dysfunction and pulmonary hypertension. Patient's creatinine has been rising over the last couple years from 1.5 to 2.1 mg/dL. Patient presented for pneumonia and non-ST elevation [place]. Patient had significant hypotension on October 05, 2024 went to [facility] and had stents 1. CKD stage IV baseline creatinine 2 mg/dL from DM , HTN. Will also send serum protein electrophoresis, there was normal in 2023. -She does not have significant proteinuria on urinalysis making diabetic nephropathy less typical here. 2. Acute kidney injury in this patient is likely ATN versus contrast-induced GIL. Patient had significant hypotension required significant amount of contrast on 10/05. The timeline is appropriate for contrast-induced GIL?as she was high risk on an ARB and hypotensive and infected. - avoid nephrotoxins. -normal complements - CPK 7153- sudhakar to 9831. unlikely high enough ck to cause GIL. -u/a- 3+ blood, 1+ prot, 21-50 rbc- will send serologies to rule out a renal pulmonary syndrome UPCR 08/26 UACR 90 HD started due to poor mental status , HD yesterday and HD again today 3. Pt has a resp alkalosis and inc AG metabolic acidosis from GIL =monitor w/ HDs 4. Anemia : also has thrombocytopenia , elevated Retic count , check peripheral smenar for schistocytes , HIT panel pending she received epo x 1 -iron sat 22.8%, ferritin 533 5. Hyponatremia- low U Na normal TSH and cortisol level. Acute kidney injury can cause hyponatremia, Sodium is stable and improved a little with diuretics 6. hyperphosphatemia-is slowly improving PTH 289.7 replace vit d - her level is 8 please dose all meds for GFR <5 7. Pneumonia -renal dose abx The patient was seen and examined with the aid of a nurse using audiovisual equipment. Case discussed in detail with patient's nurse and her son. he consdents to telehealth and dialysis as needed Case discussed in detail with Dr. Her.. If patient's mental status does not improve with dialysis would consider a goals of care conversation with the family. Plan See above. PDMP PDMP Reviewed: Not Reviewed Attestations 2 Medical Necessity Statement*: per allison Coding Level of Care Code Acute Code for Chg Fwd Diagnoses Acute kidney injury superimposed on CKD N17.9; N18.9
[2024-10-13] MEDS: iron sucrose 200 MG in sodium chloride 0.9% (100 ml) 100 ML 220 MG IV (15:59)
[2024-10-13 16:40] LABS: Creatine Phosphokinase 3509 U/L (26-192)
[2024-10-13] MEDS: carvedilol 12.5 mg Tablet PO (17:56)
[2024-10-13 17:57] LABS: Glucose Point of Care 122 mg/dL (70-110)
[2024-10-13] MEDS: vancomycin 500 MG in sodium chloride 0.9% (plus) 100 ML 200 MG IV (18:15)
[2024-10-13 19:36] LABS: Glucose Point of Care 155 mg/dL (70-110)
[2024-10-13] MEDS: fluconazole premix 200 MG/100 ML PREMIX 100 MG IV (19:42)
--- NOTE | 2024-10-13 21:18 | P.PN_ITS ---
Subjective 2 Subjective: Functional temporary dialysis catheter Vitals/I&O/Wt Last Vital Signs Temp 98.6 F 10/13/24 20:00 Pulse 69 10/13/24 20:12 Resp 16 10/13/24 19:57 BP 169/90 10/13/24 20:12 Pulse Ox 94 10/13/24 20:12 O2 Del Method Mechanical Ventilation 10/13/24 19:52 O2 Flow Rate 15 10/05/24 20:17 FiO2 28 10/13/24 19:57 10/13/24 10/13/24 10/13/24 06:59 14:59 22:59 Intake Total 450 / 1203.583 100 / 100 1670 / 1770 Output Total 250 / 3510 4651 / 4651 Balance 200 / -2306.417 100 / 100 -2981 / -2881 Weight last 48 hrs Weight 145 lb 8.081 oz Weight 144 lb 1.6 oz Weight 137 lb 12.623 oz Weight 136 lb 14.513 oz Physical Exam 2 Narrative: Chest: Intubated sedated on vent Heart: Regular rate and rhythm. Abdomen: Soft, nontender, nondistended. No masses or lymphadenopathy. Right groin: Temporary dialysis catheter working. Data 10/14/24 05:07 10/14/24 05:07 Micro: Microbiology 10/12/24 17:27 Blood Culture - Preliminary Blood NEGATIVE TO DATE 10/13/24 05:05 Blood Culture - Preliminary Blood SPECIMEN COLLECTED A&P Assessment and plan (1) Acute renal failure: Plan 79-year-old female with temporary dialysis catheter. Had dialysis. Will remain available should she require tunneled dialysis catheter. PDMP PDMP Reviewed: Not Reviewed Attestations 2 Medical Necessity Statement*: N/A Coding Level of Care Code 63282 Diagnoses Acute renal failure N17.9
[2024-10-14] VITALS (145 sets, daily range): BP systolic 145–214; BP diastolic 53–95; PULSE 64–91; RESP 16–27; TEMP 36.3–37.4; O2SAT 84–100
[2024-10-14] MEDS: ipratropium-albuterol 3 mL Neb INHALATION ×4 (01:31→20:59)
[2024-10-14] MEDS: pantoprazole 40 mg SDV IVP ×2 (03:36→14:32)
[2024-10-14 03:51] LABS: ABG PCO2 31.4 mmHg (35-45); ABG PH Result 7.52 (7.35-7.45); Base Excess ABG 2.5 mmol/L (-2.0-2.0); Blood Gas Allen Test Pos; Blood Gas Operator Identificat JDB; Blood Gas Sample Site Radial, right; Blood Gas Sample Type Arterial; HCO3 ABG 25.3 mmol/L (22-26); HGB O2 Sat 94.2 % (95-100); Ionized Calcium Level - ABG 1.2 mmol/L (1.1-1.4); Methemoglobin 1.3 % (0.4-1.5); Oxygen Device VENT; Oxygen Saturation ABG 96.4; PO2 ABG 75.3 mmHg (80.0-100.0); PO2 FiO2 Ratio Arterial Blood 268; Potassium Level - ABG 3.2 mmol/L (3.5-5.0); Total Hemoglobin 9.1 g/dL (12-16)
[2024-10-14 05:23] LABS: Basophils % 0.3 %; Eosinophils # 0.1 10^3/uL (0.0-0.8); Eosinophils % 1.3 %; Hematocrit 25.2 % (36-47); Lymphocytes # 0.2 10^3/uL (0.8-4.8); Lymphocytes % 3.1 %; Mean Corpuscular HGB Conc 34.1 g/dL (30-55); Mean Corpuscular Hemoglobin 30.5 pg (27-33); Mean Corpuscular Volume 89.4 fl (85-98); Mean Platelet Volume 12.2 fL (7.4-10.4); Monocytes # 0.4 10^3/uL (0.2-0.9); Monocytes % 5.2 %; Neutrophils # 6.92 10^3/uL (1.8-7.7); Neutrophils % 87.9 %; Nucleated Red Blood Cells % 0 %; Platelet Count 68 10^3/cmm (157-399); Red Blood Count 2.82 10^6/uL (3.85-5.65); Red Cell Distribution Width 14.3 % (12.1-15.1); White Blood Count 7.86 10^3/uL (3.29-11.43)
[2024-10-14 05:51] LABS: Alanine Aminotransferase 33 U/L (0-33); Albumin Level 3.8 g/dL (3.5-5.2); Alkaline Phosphatase 82 U/L (35-105); Anion Gap 18.4 (5-19); Aspartate Amino Transferase 73 U/L (0-32); Blood Urea Nitrogen 32 mg/dL (8-23); Carbon Dioxide 24 mmol/L (22-29); Chloride 100 mmol/L (98-107); Globulin 2.3 g/dL (1.3-4.6); Glucose 143 mg/dL (65-115); Osmolality Calculated 297 mOsm/kg (285-295); Potassium 3.4 mmol/L (3.5-5.1); Sodium 139 mmol/L (136-145); Total Bilirubin 0.5 mg/dL (0.15-1.2); Total Protein 6.1 g/dL (6.6-8.7)
--- NOTE | 2024-10-14 06:00 | XR_ITS ---
WS: [id number] Exam: XR chest 1V portable [id number] Date/Time of Exam: 10/14/2024 7:13 AM Reason For Exam: intubated Comparison 10/13/2024. Bilateral pulmonary infiltrates show little change since the last study. ET tube remains in good position ending about 5 cm above the belem. A left-sided PICC line ends in the lower one third of the SVC. Enteric tube is looped in the fundus of the stomach. The mediastinum is normal in contour. Bony structures are intact. IMPRESSION1. Bilateral pulmonary infiltrates unchanged. 2. ET tube, enteric tube and left-sided PICC line all in satisfactory position.
[2024-10-14] MEDS: hyDRALAzine 20 mg/mL INJ 1 mL 10 MG IVP ×2 (06:11→11:18)
[2024-10-14 07:20] LABS: Glucose Point of Care 149 mg/dL (70-110)
[2024-10-14] MEDS: budesonide 0.5 mg/2 mL Neb INHALATION ×2 (08:07→20:59)
[2024-10-14] MEDS: albumin 25 G/100 ML BAG 60 G IV ×2 (08:11→17:06)
[2024-10-14] MEDS: meropenem 500 mg SDV IVP (08:11)
[2024-10-14] MEDS: aspirin 81 mg EC Tablet PO (08:14)
[2024-10-14] MEDS: metOLazone 5 MG Tablet 10 MG PO (08:14)
[2024-10-14] MEDS: carvedilol 12.5 mg Tablet PO (08:14)
[2024-10-14] MEDS: amlodipine 5 mg Tablet PO ×2 (08:16→09:13)
[2024-10-14] MEDS: clopidogrel 75 mg Tablet PO (08:16)
[2024-10-14] MEDS: chlorhexidine gluconate 4% Btl 118 mL 1 APPLIC TOPICAL (08:21)
[2024-10-14] MEDS: insulin lispro 100 unit/1 mL SUBCUT ×2 (08:21→21:04)
[2024-10-14] MEDS: water for injection-sterile 10 ML 10000 ML (08:21)
--- NOTE | 2024-10-14 08:53 | P.PN_ITS ---
Subjective 2 Subjective: Patient still intubated. Her blood pressure has been high. At the time of my assessment was in the 200s systolic range. Vitals/I&O/Wt Last Vital Signs Temp 98.8 F 10/14/24 04:18 Pulse 76 10/14/24 08:22 Resp 24 H 10/14/24 08:16 BP 165/53 10/14/24 04:52 Pulse Ox 94 10/14/24 08:16 O2 Del Method Mechanical Ventilation 10/14/24 08:05 O2 Flow Rate 15 10/05/24 20:17 FiO2 28 10/14/24 08:16 10/13/24 10/14/24 10/14/24 22:59 06:59 14:59 Intake Total 1670 / 1770 100 / 1870 Output Total 4651 / 4651 Balance -2981 / -2881 100 / -2781 Weight last 48 hrs Weight 144 lb Weight 145 lb 8.081 oz Weight 144 lb 1.6 oz Weight 137 lb 12.623 oz Physical Exam 2 Narrative: General: Intubated HENMT: normoceophalic Respiratory: Normal respiratory effort, Course bilateral upper and lower lobes throughout, no use of accessory muscles Cardio: No JVD, regular rate, regular rhythm, S1 S2 normal, no murmurs, peripheral pulses 2+ radial palpated bilaterally Extremities: Full ROM, normal, normal capillary refill, no cyanosis or edema Neuro: Intubated Skin: Right fem stick sites clean dry intact well-approximated no signs of hematoma soft Data 10/14/24 05:07 10/14/24 05:07 Micro: Microbiology 10/13/24 05:05 Blood Culture - Preliminary Blood NEGATIVE TO DATE 10/12/24 17:27 Blood Culture - Preliminary Blood NEGATIVE TO DATE A&P Assessment and plan (1) Unstable angina: (2) Peripheral arterial disease with history of revascularization: (3) Paroxysmal atrial flutter: (4) Benign hypertension: (5) Chronic kidney disease (CKD): (6) Pneumonia: (7) NSTEMI (non-ST elevated myocardial infarction): Plan Patient had PCI of left main to proximal LAD with 2 stents. On aspirin and Plavix. Echo shows mildly reduced LV systolic function. Creatinine has improved. Now at 2.2. She got dialysis again last night. She is making urine. Patient is being seen by nephrology. Appreciate their assistance. Patient is now off of pressors and bp elevated. Increasing amlodipine 10 mg daily, continue metoprolol to 50 BID, hydralazine 10 mg q4 prn systolic bp at or above 170. Will add hydralazine PO 75 TID. If bp still high after adjustments, will add nitro drip. Hospitalist team is onboard as well. We appreciate their assistance. Medicine team on board for management of medical issues and vent management. Appreciate assistance. Antibiotic therapy for UTI/pneumonia. PDMP PDMP Reviewed: Not Reviewed Attestations 2 Medical Necessity Statement*: Acute [place], acute respiratory failure, patient on ventilator Coding Level of Care Code Acute Code for Chg Fwd Diagnoses Unstable angina I20.0 Peripheral arterial disease with history of revascularization I73.9; Z98.890 Paroxysmal atrial flutter I48.92 Benign hypertension I10 Chronic kidney disease, unspecified CKD stage N18.9 Chronic kidney disease stage: unspecified stage Pneumonia due to infectious organism, unspecified laterality, unspecified part of lung J18.9 Laterality: unspecified laterality Lung location: unspecified part of lung Pneumonia type: due to unspecified organism NSTEMI (non-ST elevated myocardial infarction) I21.4
--- NOTE | 2024-10-14 09:03 | P.PN_ITS ---
Subjective 2 Subjective: still intubated. more awake. will attempt extubation today Medications: Reviewed: Yes Medication Review Details: Current Medications Acetaminophen (Acetaminophen 325 Mg Tablet) 650 mg PO Q6H PRN PRN Reason: MILD PAIN Albuterol/Ipratropium (Ipratropium-Albuterol 3 Ml Neb) 3 ml INHALATION Q6H.RESP [facility] Last Admin: 10/14/24 08:07 Dose: 3 ml Amlodipine Besylate (Amlodipine 10 Mg Tablet) 10 mg PO DAILY TABATHA Aspirin (Aspirin 81 Mg Ec Tablet) 81 mg PO DAILY [facility] Last Admin: 10/14/24 08:14 Dose: 81 mg Budesonide (Budesonide 0.5 Mg/2 Ml Neb) 0.5 mg INHALATION BID.RESPIRATORY [facility] Last Admin: 10/14/24 08:07 Dose: 0.5 mg Carvedilol (Carvedilol 12.5 Mg Tablet) 12.5 mg PO BID [facility] Last Admin: 10/14/24 08:14 Dose: 12.5 mg Chlorhexidine Gluconate (Chlorhexidine Gluconate 4% Btl 118 Ml) 1 applic TOPICAL DAILY [facility] Last Admin: 10/14/24 08:21 Dose: 1 applic Clopidogrel Bisulfate (Clopidogrel 75 Mg Tablet) 75 mg PO DAILY [facility] Last Admin: 10/14/24 08:16 Dose: 75 mg Glucagon (Glucagon 1 Mg/Ml Kit 1 Ml) 1 mg IM ONCE PRN; Protocol PRN Reason: Adult Acute Hypoglycemia Nursing Prot. Hydralazine HCl (Hydralazine 20 Mg/Ml Inj 1 Ml) 10 mg IVP Q4H PRN PRN Reason: HYPERTENSION Last Admin: 10/14/24 06:11 Dose: 10 mg Hydralazine HCl (Hydralazine 50 Mg Tablet) 75 mg PO TID [facility] Propofol (Diprivan) 1,000 mg in 100 mls @ 0 mls/hr IV .Q0M [facility]; Protocol Last Titration: 10/09/24 10:03 Dose: 0 mcg/kg/min, 0 mls/hr Albumin Human (Albumin) 25 g in 100 mls @ 60 mls/hr IV Q8H [facility] Last Admin: 10/14/24 08:11 Dose: 60 mls/hr Fluconazole (Diflucan Premix) 200 mg in 100 mls @ 100 mls/hr IV Q24H [facility] Last Infusion: 10/13/24 21:16 Dose: Infused Iron Sucrose 200 mg/ Sodium (Chloride) 110 mls @ 220 mls/hr IV Q24H TABATHA Stop: 10/16/24 15:29 Last Infusion: 10/13/24 16:33 Dose: Infused Dextrose (D5w) 500 mls @ 0 mls/hr IV ONCE PRN; Protocol PRN Reason: Adult Acute Hypoglycemia Prot Dextrose (D10w) 125 mls @ 750 mls/hr IV PRN PRN; Protocol PRN Reason: Adult Acute Hypoglycemia Nursing Protocol Dextrose (D10w) 250 mls @ 1,000 mls/hr IV PRN PRN; Protocol PRN Reason: Adult Acute Hypoglycemia Nursing Protocol Sodium Chloride (Sodium Chloride 0.9%) 1,000 mls @ 0 mls/hr IV .Q0M PRN PRN Reason: hypotension or symptomatic Albumin Human (Albumin) 12.5 gm in 50 mls @ 60 mls/hr IV PRN PRN PRN Reason: Hypotension and/or symptomatic Insulin Human Lispro (Insulin Lispro 100 Unit/1 Ml) 0 unit SUBCUT WM&BEDTIME [facility]; Protocol Last Admin: 10/14/24 08:21 Dose: 2 unit Lanolin (Lanolin Oint 7 Gm) 1 applic TOPICAL PRN PRN PRN Reason: DRYNESS Last Admin: 10/10/24 18:08 Dose: 1 applic Magnesium Hydroxide (Magnesium Hydroxide 30 Ml Udc) 30 ml PO DAILY PRN PRN Reason: CONSTIPATION Meropenem (Meropenem 500 Mg Sdv) 500 mg IVP Q24H [facility]; Protocol Last Admin: 10/14/24 08:11 Dose: 500 mg Metolazone (Metolazone 5 Mg Tablet) 10 mg PO DAILY [facility] Last Admin: 10/14/24 08:14 Dose: 10 mg Naloxone HCl (Naloxone 0.4 Mg/Ml Sdv) 0.1 mg IVP Q2M PRN PRN Reason: RESPIRATORY RATE < 8/MIN Nitroglycerin (Nitroglycerin 0.4 Mg Sublingual Tablet) 0.4 mg SUBLINGUAL Q5M PRN PRN Reason: CHEST PAIN Pantoprazole Sodium (Pantoprazole 40 Mg Sdv) 40 mg IVP Q12H [facility] Last Admin: 10/14/24 03:36 Dose: 40 mg Vancomycin HCl (Vancomycin 1,000 Mg Sdv (Pharmacy Mix)) 0 mg XX PRN PRN PRN Reason: Pharmacy to Dose Vitals/I&O/Wt Last Vital Signs Temp 98.8 F 10/14/24 04:18 Pulse 76 10/14/24 08:22 Resp 24 H 10/14/24 08:16 BP 165/53 10/14/24 04:52 Pulse Ox 94 10/14/24 08:16 O2 Del Method Mechanical Ventilation 10/14/24 08:05 O2 Flow Rate 15 10/05/24 20:17 FiO2 28 10/14/24 08:16 10/13/24 10/14/24 10/14/24 22:59 06:59 14:59 Intake Total 1670 / 1770 100 / 1870 Output Total 4651 / 4651 Balance -2981 / -2881 100 / -2781 Weight last 48 hrs Weight 65.317 kg Weight 66 kg Weight 65.363 kg Weight 62.5 kg Physical Exam 2 Narrative: The patient is intubated. Her vent settings are minimal HEENT normocephalic atraumatic neck is supple lungs- b/l air movement Heart is regular. no rub Abdomen is soft positive bowel sounds Extremities do not have edema. Neuro more awake and moving, follwos simple commands Data 10/14/24 05:07 10/14/24 05:07 Micro: Microbiology 10/13/24 05:05 Blood Culture - Preliminary Blood NEGATIVE TO DATE 10/12/24 17:27 Blood Culture - Preliminary Blood NEGATIVE TO DATE A&P Assessment and plan (1) Acute kidney injury superimposed on CKD: 79-year-old lady diabetic hypertensive CKD, EF of 45% with grade 1 diastolic dysfunction and pulmonary hypertension. Patient's creatinine has been rising over the last couple years from 1.5 to 2.1 mg/dL. Patient presented after recent antibiotic and is now here with presumed utI plus minus pneumonia and non-ST elevation [place]. Patient had significant hypotension on October 05, 2024 went to the [facility] and had stents in contrast. 1. CKD stage IV baseline creatinine 2 mg/dL is presumed diabetic hypertensive. Will also send serum protein electrophoresis, there was normal in 2023. -She does not have significant proteinuria on urinalysis making diabetic nephropathy less typical here. 2. Acute kidney injury in this patient is likely ATN versus contrast-induced GIL. Patient had significant hypotension required significant amount of contrast on 10/05. The timeline is appropriate for contrast-induced GIL?as she was high risk on an ARB and hypotensive and infected. - avoid nephrotoxins. -normal complements - CPK 7153- sudhakar to 9831. unlikely high enough ck to cause GIL. -u/a- 3+ blood, 1+ prot, 21-50 rbc- will send serologies to rule out a renal pulmonary syndrome UPCR 08/26 UACR 90 -she is s/p H x 2. will hold dialysis today and monitor for renal recovery -ck improved to 3509 3. VDRF- attempting to extubate today 4. anemia- hgb stable - haptoglobin 360, LDH was 358- repeat , normal total bilirubin -unlikely hemolysis. she received epo x 1 -iron sat 22.8%, ferritin 533 5. Hyponatremia- low ur na improved w/ dialysis 6. hyperphosphatemia-improved -repeat pth in 4 weeks 7. resp alkalosis- monitor w/ weaning of vent 8. hypokalmeia- monitor 9. pna- on abx The patient was seen and examined with the aid of a nurse using audiovisual equipment. Case discussed in detail with patient's nurse Plan See above. PDMP PDMP Reviewed: Not Reviewed Attestations 2 Medical Necessity Statement*: AMI, pna, GIL, intubated Time Spent in Patient Care: 16 - 35 minutes (>than 50% of time sp ent in counselling and/or direct pt care on unit) . Coding Level of Care Code Acute Code for Chg Fwd Diagnoses Acute kidney injury superimposed on CKD N17.9; N18.9
[2024-10-14] MEDS: hyDRALAzine 50 mg Tablet 75 MG PO (09:13)
--- NOTE | 2024-10-14 09:17 | XR_ITS ---
WS: [id number] Exam: XR chest 1V portable [id number] Date/Time of Exam: 10/14/2024 9:18 AM Reason For Exam: dobhoff placement Limited chest x-ray submitted for feeding tube placement. Comparison made with prior exam performed on the same day at 7:28 a.m. A metallic tip feeding tube is noted in the midline and appears to end at the GE junction. A pre-existing enteric tube is again noted looped in the fundus of the stomach. Again noted are in the interstitial infiltrates in the visualized lung zones. Heart size within normal limits. XR/XR chest 1V portable [id number] IMPRESSION: 1. Metallic tip feeding tube appearing to end in the lower esophagus with the t ip near the GE junction. Remaining aspects of the chest are unchanged.
--- NOTE | 2024-10-14 09:27 | SUR.PREOP ---
NG PLACEMENT Patient pending extubation today. Plan to swap OG for Dobbhoff NG placment. Dobhoff placed to right nare with no difficulty. Patient tolerated well. Pre measured at 50 cm length. Dobbhoff placed at 50 cm and secured. XRAY pending read.
--- NOTE | 2024-10-14 11:00 | XR_ITS ---
WS: [id number] Exam: XR chest 1V portable [id number] Date/Time of Exam: 10/14/2024 11:05 AM Reason For Exam: placement of dobhove Compared to the latest exam performed on the same day at 0921 hours. Previously noted enteric tube that was looped in the stomach is been removed. Metallic tip Dobbhoff tube also appears to been removed. Bilateral infiltrates have improved. Left-sided PICC line appears to be in the lower one third of the SVC in good position. No pneumothorax or pleural effusion. Heart size is stable. ET tube is also been removed. XR/XR chest 1V portable [id number] IMPRESSION: 1. Bilateral infiltrates show improvement. 2. ET tube and enteric tubes have been removed.
[2024-10-14] MEDS: FUROsemide 10 mg/mL SDV 4mL 80 MG (11:31)
[2024-10-14 11:34] LABS: Glucose Point of Care 114 mg/dL (70-110)
[2024-10-14] MEDS: nitroglycerin drip 50 MG/250 ML PREMIX IV (11:49)
[2024-10-14 12:08] LABS: ABG PCO2 34.4 mmHg (35-45); ABG PH Result 7.47 (7.35-7.45); Alveolar-Arterial Oxygen Gradi 19.7 mmHg (5-10); Arterial Blood Gas Hematocrit 27.2 % (37-47); Base Excess ABG 1.7 mmol/L (-2.0-2.0); Blood Gas Allen Test Pos; Blood Gas Operator Identificat GD; Blood Gas Sample Site Radial, right; Blood Gas Sample Type Arterial; Carboxyhemoglobin 0.8 %THgb (0.4-20.1); HCO3 ABG 25.2 mmol/L (22-26); HGB O2 Sat 97.4 % (95-100); Ionized Calcium Level - ABG 1.2 mmol/L (1.1-1.4); Methemoglobin 1.5 % (0.4-1.5); Oxygen Device BIPAP; Oxygen Saturation ABG > 99.1; PO2 FiO2 Ratio Arterial Blood 320; Potassium Level - ABG 3.3 mmol/L (3.5-5.0); Total Hemoglobin 8.9 g/dL (12-16)
[2024-10-14] MEDS: potassium chloride premix 100 ML 50 MEQ IV (12:20)
[2024-10-14 13:45] LABS: Pan Candida Detected (NOT DETECT)
[2024-10-14 13:46] LABS: Lactobacillus species Detected (NOT DETECT)
--- NOTE | 2024-10-14 14:02 | P.PN_ITS ---
Subjective 2 Subjective: Seen multiple times during the day. No acute events overnight. Patient underwent second session of dialysis yesterday. Tolerated dialysis well. Today morning patient is more awake and alert, following some directions and responding with blinking of eyes. Eventually she was extubated around 11 AM. Postextubation patient was doing well on 4 L but around 1 hour after extubation she developed flash pulmonary edema and was placed on BiPAP and given IV Lasix 80 mg. Vitals/I&O/Wt Last Vital Signs Temp 97.3 F L 10/14/24 10:30 Pulse 75 10/14/24 13:56 Resp 25 H 10/14/24 13:45 BP 176/73 10/14/24 13:00 Pulse Ox 98 10/14/24 13:55 O2 Del Method BiPAP 10/14/24 13:45 O2 Flow Rate 15 10/05/24 20:17 FiO2 30 10/14/24 13:55 10/13/24 10/14/24 10/14/24 22:59 06:59 14:59 Intake Total 1670 / 1770 100 / 1870 110 / 110 Output Total 4651 / 4651 Balance -2981 / -2881 100 / -2781 110 / 110 Weight last 48 hrs Weight 65.317 kg Weight 66 kg Weight 65.363 kg Weight 62.5 kg Physical Exam 2 Narrative: General: Intubated, currently not sedated, somnolent HENMT: normoceophalic Respiratory: Normal respiratory breath sounds all over lung [place] with occasional rhonchi and crackles bilaterally, left more than right, prozone more than lower zone Cardio: No JVD, regular rate, regular rhythm, S1 S2 normal, no murmurs. Abdomen: Soft, mildly distended. Bowel sounds are hypoactive. Neuro: Intubated, somnolent Extremity: Bilateral 2+ pitting edema up to knees Data 10/14/24 05:07 10/14/24 05:07 Micro: Microbiology 10/11/24 10:35 Gram Stain - Final Sputum - Endotracheal Tube Aspirate Sputum Culture - Preliminary Yeast species 10/13/24 05:05 Blood Culture - Preliminary Blood Lactobacillus species Yeast species 10/12/24 17:27 Blood Culture - Preliminary Blood NEGATIVE TO DATE A&P Assessment and plan (1) Respiratory failure: Currently mechanically ventilated. On minimal ventilator support. Patient continues to have metabolic encephalopathy most likely in setting of uremia from renal dysfunction and hyponatremia. Remains off sedation since Friday. Eventually patient's mentation improved after dialysis and improvement in hyponatremia and uremia. Extubated on 10/14. Oxygen supplementation keeping saturation over 88%. BiPAP as needed for flash pulmonary edema. Continue with Pulmicort twice daily, continue with DuoNebs every 6 hour. PT/OT/speech evaluation. Start on medications if patient is able to tolerate orally postextubation. (2) Acute kidney injury superimposed on CKD: Baseline creatinine around 1.5. Creatinine and uremia continues to worsen. Combination of ATN and RIRI. Associated with uremia, metabolic acidosis. Appreciate ABG showing compensated respiratory alkalosis with metabolic acidosis. Nephrology on board. Continue with temporary dialysis. Tolerated 2 sessions of dialysis on 10/13 and 10/12. Requested another session of dialysis today given flash pulmonary edema. Continue with IV albumin every 8 hours. Strict input output charting, daily weights. Medical reconciliation done for nephrotoxic drugs. CT on pelvis negative for obstructive nephropathy. (3) Accelerated hypertension: Associated with respiratory failure due to fluid overload. Goal blood pressure less than 140/90 mmHg. Currently on amlodipine 10 mg oral daily, Coreg 12.5 mg twice daily. Hydralazine 75 mg thrice daily has been added by cardiology team. Nitro drip. Wean as per goal blood pressure. Will plan to transition to oral medication if patient is will tolerate orally postextubation. (4) Systolic congestive heart failure: Ischemic cardiomyopathy. Echocardiogram shows EF of 45 to 50%, grade 1 diastolic function, mild MR, mild TR. Patient not responding to IV Lasix 80 mg. Requested nephrology for 1 more session of dialysis. (5) Acute metabolic encephalopathy: Most likely in setting of acute renal failure leading to uremia. Also has hyponatremia. Normal ammonia levels. Resolving. Check Thyroid panel, cortisol random Continue to remain off sedation for now. Appreciate CT head. (6) Fungemia: Sputum culture growing yeast. Blood culture from 10/13 from periphery 1 bottle growing budding yeast. Will request fresh set of cultures from periphery, dialysis catheter and PICC line. Will request sensitivities and identification from micro lab. Will consult infectious disease. Switch from fluconazole to IV micafungin 100 mg daily for now. (7) Severe hypothyroidism: (8) Uremia: (9) NSTEMI (non-ST elevated myocardial infarction): Post PCI for critical ostial LAD and left main. Appreciate cardiology recommendations. Continue with DAPT with aspirin, Plavix, statin, beta-koby with metoprolol 12.5 mg twice daily. Echocardiogram done shows EF of 45 to 50% grade 1 diastolic dysfunction, mild MR, mild TR with mild pulmonary hypertension. (10) Anemia: (11) COPD (chronic obstructive pulmonary disease): (12) Chronic hyponatremia: (13) Lactic acidosis: (14) Metabolic acidosis: (15) Benign hypertension: Plan Anemia: Hemoglobin taget more than 8. Post 1 unit of blood. Appreciate haptoglobin, reticulocyte count, iron panel, vitamin B12 and folate levels. C/w IV iron supplementation. No concerns of bleeding. Switch to Protonix 40 mg twice daily. Check stool for occult blood. Code Status: Full IVF: Stop IV fluids DVT PPx: Hold heparin given concerns for platelet count drop of more than 50%. SCD for DVT prophylaxis. GI PPx: Protonix 40 mg IV every 12 hourly ABx: Linezolid, Cefepime Diet: Continue Nepro at goal of 40 cc/h, free water flushes 100 cc every 6 hours Discharge plan: Back to SNF when stable. Discussed symptoms with patient's son Mr. Darrion Ho over the phone. Discussed unfortunately patient's mentation is still extremely poor but slightly improving with dialysis. Discussed plan would be to continue dialysis for 1 more day and if her oxygen saturations remain stable to possibly extubated tomorrow. Discussed as a possibility if her mentation does not improve she might not tolerate extubation well or might have desaturation later in admission in which she might need to be put back on ventilator. Discussed further goals of care regarding her baseline comorbidities. Son states he would discuss further with his brothers and would get back to us to see if they would want her to go back on ventilator if need be. For now CODE STATUS will remain full code. PDMP PDMP Reviewed: Not Reviewed Attestations 2 Medical Necessity Statement*: Requires further hospitalization for management of respiratory failure postextubation, metabolic encephalopathy in setting of uremia, acute kidney injury requiring temporary dialysis, fungemia, severe hypothyroidism in a patient admitted for non-ST elevation [place] post PCI Critical Care Time: The high probability of a clinically significant, sudden or life threatening deterioration of the patient's [cardiac, pulmonary, renal, ID, neurological] s ystem(s) required my full and direct attention, intervention and personal management. The critical care time is as shown. This time is in addition to time spent performing any reported procedures but includes the following: [x] Data and vital sign review and interpretation [x] Patient assessment, examination and intervention [x] Documentation [x] Medication orders and management Critical Care Time (min): 90 Coding Level of Care Code Critical Care >/= 30 minutes Critical care time (in minutes): 90 The high probability of a clinically significant, sudden or life threatening deterioration, as referenced in this documentation, required my full and direct attention, intervention and personal management. The critical care time shown is in addition to time spent performing any reported separately billable procedures and includes the following: [x] Data and vital sign review and interpretation [x ] Patient assessment, examination and intervention [x] Medication orders and management [x] Patient/Family updates as able [x] Care Coordination and Documentation. Other Coding Information This patient has a high probability of clinically significant, sudden or life threatening deterioration of the patient's (neurological/pulmonary/cardiac/renal/ID/endocrine) systems required my full, direct attention, the highest level of physician preparedness for urgent intervention and personal management. I managed/supervised life or organ supporting interventions that required frequent physician assessment. I devoted my full attention in the ICU to the direct care of this patient for the period of time indicated above. Time I spent with family or surrogate(s) is included only if the patient was incapable of providing necessary information or participating in decision making. This time includes the following services provided: Telemetry review Mechanical Ventilation Hemodynamic interpretation, assessment and management Review and interpretation of CXR Review and interpretation of lab values Review and interpretation of microbiologic data and culture results Review of medications and administration Review and interpretation of Nutrition requirements and management Discussion of management with other consultants and services Clinical update to family members Diagnoses Respiratory failure J96.90 Acute kidney injury superimposed on CKD N17.9; N18.9 Accelerated hypertension I10 Systolic congestive heart failure I50.20 Acute metabolic encephalopathy G93.41 Fungemia B49 Severe hypothyroidism E03.9 Uremia N19 NSTEMI (non-ST elevated myocardial infarction) I21.4 Anemia D64.9 Other emphysema J43.8 COPD type: emphysema Emphysema type: other Chronic hyponatremia E87.1 Lactic acidosis E87.20 Metabolic acidosis E87.20 Benign hypertension I10
[2024-10-14 14:20] LABS: Free T4 Free Thyroxine 0.46 ng/dL (0.82-1.77); Thyroid Stimulating Hormone 12.85 uIU/mL (0.27-4.20)
[2024-10-14] MEDS: micafungin 100 MG in sodium chloride 0.9% (plus) 100 ML IV (14:48)
[2024-10-14 15:24] LABS: Cortisol Random 20.68 ug/dL (2.47-19.5)
[2024-10-14] MEDS: iron sucrose 200 MG in sodium chloride 0.9% (100 ml) 100 ML 220 MG IV (15:40)
--- NOTE | 2024-10-14 15:57 | PC.NURSE ---
on vent this am able to open eyes and moves extremities on bed no restraints , dobhoff inserted this shift no difficulty cxr done , during removal of et tube extubation the dobhoff was removed also , attempt to reinsert and noted some bloody drainage , no further attempt as tube curled in throat, noted blood pressure increase drastically noted bilateral crackle and increase in respritory distress , doctor called and orders placed on Bipap with lasix given minimal urine output noted order for dialysis today ,
[2024-10-14] MEDS: levothyroxine 100 mcg SDV IVP (16:30)
--- NOTE | 2024-10-14 17:30 | PC.NURSE ---
frequent oral care will swallow small amt off sponge, urine output low , irrigated dale no blockage noted awaiting dialysis
[2024-10-14 17:43] LABS: Glucose Point of Care 135 mg/dL (70-110)
[2024-10-14 18:07] LABS: ABG PCO2 31.7 mmHg (35-45); ABG PH Result 7.48 (7.35-7.45); Arterial Blood Gas Hematocrit 21.8 % (37-47); Base Excess ABG 0.2 mmol/L (-2.0-2.0); Blood Gas Allen Test Pos; Blood Gas Sample Site Radial, right; Blood Gas Sample Type Arterial; Carboxyhemoglobin 1.1 %THgb (0.4-20.1); HCO3 ABG 23.6 mmol/L (22-26); HGB O2 Sat 95.6 % (95-100); Ionized Calcium Level - ABG 1.2 mmol/L (1.1-1.4); Methemoglobin 1.5 % (0.4-1.5); Oxygen Saturation ABG 98.1; PO2 ABG 85.5 mmHg (80.0-100.0); Potassium Level - ABG 3.7 mmol/L (3.5-5.0); Total Hemoglobin 7.1 g/dL (12-16)
[2024-10-14 18:08] LABS: Alveolar-Arterial Oxygen Gradi 11.3 mmHg (5-10); Blood Gas Operator Identificat GD; Oxygen Device BIPAP; PO2 FiO2 Ratio Arterial Blood 285
[2024-10-14 18:30] LABS: Vancomycin Trough 15.4 ug/mL (10-15)
[2024-10-14 20:09] LABS: Glucose Point of Care 151 mg/dL (70-110)
--- NOTE | 2024-10-14 20:52 | PC.NURSE ---
MAR Updates: Insulin due at 1800, blood sugar 135, no insulin needed, MAR updated. Upon arrival to shift, nitro gtt was running at 20mcg/min, MAR updated to reflect dose.
--- NOTE | 2024-10-14 21:56 | PC.NURSE ---
Event: patient's saturations were dropping, at bedside BiPAP was removed and a considerable amount of blood was suctioned out of the patient's mouth and throat. Dr. Coley was notified and gave orders to suction patient PRN and continue to monitor with BiPAP on.
--- NOTE | 2024-10-14 22:43 | PC.HD ---
20:00 As patient being disconnected from dialysis she opened her eyes and looked at dialysis nurse, nodded yes when asked if she could see the nurse, and weakly squeezed left hand (but not right hand) to command. ROD PULLER in to assess patient and Dr Zaheer mendoza.
[2024-10-15] VITALS (39 sets, daily range): BP systolic 84–183; BP diastolic 49–84; PULSE 70–119; RESP 10–30; TEMP 36.1–36.8; O2SAT 87–100; BMI 23.6
[2024-10-15] MEDS: ipratropium-albuterol 3 mL Neb INHALATION ×3 (01:23→14:00)
[2024-10-15] MEDS: albumin 25 G/100 ML BAG 60 G IV ×2 (01:54→09:48)
[2024-10-15] MEDS: pantoprazole 40 mg SDV IVP (01:54)
[2024-10-15] MEDS: hyDRALAzine 20 mg/mL INJ 1 mL 10 MG IVP (02:24)
--- NOTE | 2024-10-15 04:56 | PC.NURSE ---
Neuro: Patient opening eyes and looking around, unable to follow commands but nods head yes when asked questions. Patient will only nod head yes when asked to shake head no so unable to determine if movement is purposeful.
--- NOTE | 2024-10-15 06:00 | XRR_ITS ---
PROCEDURE INFORMATION: Exam: XR Chest Exam date and time: 10/15/2024 5:34 AM Age: 79 years old Clinical indication: Other: Daily intubated patient port TECHNIQUE: Imaging protocol: Radiologic exam of the chest. Views: 1 view. COMPARISON: CR XR chest 1V portable [id number] 10/14/2024 11:20 AM FINDINGS: Tubes, catheters and devices: Stable PICC line. Lungs: Increasing opacity in the left lower lobe representing increasing atelectasis or infiltrate. Chronic interstitial fibrosis remains present. Slightly increasing infiltrate in the right lower lobe as well. Pleural spaces: Unremarkable. No pleural effusion. No pneumothorax. Heart/Mediastinum: Unremarkable. No cardiomegaly. Bones/joints: Unremarkable. XR/XR chest 1V portable [id number] IMPRESSION: Increasing bibasilar opacities, greatest in the left lower lobe.
[2024-10-15 06:34] LABS: Basophils % 0.1 %; Eosinophils # 0.1 10^3/uL (0.0-0.8); Eosinophils % 0.6 %; Hematocrit 22.8 % (36-47); Lymphocytes # 0.4 10^3/uL (0.8-4.8); Lymphocytes % 4.1 %; Mean Corpuscular Hemoglobin 29.1 pg (27-33); Mean Corpuscular Volume 90.8 fl (85-98); Mean Platelet Volume 13.4 fL (7.4-10.4); Monocytes # 0.6 10^3/uL (0.2-0.9); Monocytes % 6.5 %; Neutrophils # 7.77 10^3/uL (1.8-7.7); Neutrophils % 86.8 %; Nucleated Red Blood Cells % 0.2 %; Platelet Count 39 10^3/cmm (157-399); Positive M 1; Red Blood Count 2.51 10^6/uL (3.85-5.65); Red Cell Distribution Width 14.4 % (12.1-15.1); White Blood Count 8.95 10^3/uL (3.29-11.43)
[2024-10-15 06:51] LABS: Alanine Aminotransferase 32 U/L (0-33); Albumin Level 4.7 g/dL (3.5-5.2); Alkaline Phosphatase 52 U/L (35-105); Aspartate Amino Transferase 63 U/L (0-32); Blood Urea Nitrogen 56 mg/dL (8-23); Calcium 9.2 mg/dL (8.5-10.5); Carbon Dioxide 20 mmol/L (22-29); Chloride 101 mmol/L (98-107); Globulin 1.7 g/dL (1.3-4.6); Glucose 112 mg/dL (65-115); Osmolality Calculated 308 mOsm/kg (285-295); Phosphorus 3.2 mg/dL (2.5-4.5); Sodium 141 mmol/L (136-145); Total Bilirubin 0.8 mg/dL (0.15-1.2); Total Protein 6.4 g/dL (6.6-8.7)
--- NOTE | 2024-10-15 07:15 | P.PN_ITS ---
Subjective 2 Subjective: Patient was extubated yesterday. Developed flash pulmonary edema and required dialysis. Mental status improved and worsened again. Patient remains on BiPAP short of breath and remains confused. Unable to get a review of systems due to poor mental status. Medications: Reviewed: Yes Medication Review Details: Current Medications Acetaminophen (Acetaminophen 325 Mg Tablet) 650 mg PO Q6H PRN PRN Reason: MILD PAIN Albuterol/Ipratropium (Ipratropium-Albuterol 3 Ml Neb) 3 ml INHALATION Q6H.RESP TABATHA Last Admin: 10/15/24 01:23 Dose: 3 ml Amlodipine Besylate (Amlodipine 10 Mg Tablet) 10 mg PO DAILY TABATHA Aspirin (Aspirin 81 Mg Ec Tablet) 81 mg PO DAILY TABATHA Last Admin: 10/14/24 08:14 Dose: 81 mg Budesonide (Budesonide 0.5 Mg/2 Ml Neb) 0.5 mg INHALATION BID.RESPIRATORY [facility] Last Admin: 10/14/24 20:59 Dose: 0.5 mg Buspirone HCl (Buspirone 10 Mg Tablet) 10 mg PO BID [facility] Last Admin: 10/14/24 17:33 Dose: Not Given Carvedilol (Carvedilol 12.5 Mg Tablet) 12.5 mg PO BID [facility] Last Admin: 10/14/24 17:33 Dose: Not Given Chlorhexidine Gluconate (Chlorhexidine Gluconate 4% Btl 118 Ml) 1 applic TOPICAL DAILY [facility] Last Admin: 10/14/24 08:21 Dose: 1 applic Clopidogrel Bisulfate (Clopidogrel 75 Mg Tablet) 75 mg PO DAILY [facility] Last Admin: 10/14/24 08:16 Dose: 75 mg Escitalopram Oxalate (Escitalopram 10 Mg Tablet) 20 mg PO DAILY [facility] Glucagon (Glucagon 1 Mg/Ml Kit 1 Ml) 1 mg IM ONCE PRN; Protocol PRN Reason: Adult Acute Hypoglycemia Nursing Prot. Hydralazine HCl (Hydralazine 20 Mg/Ml Inj 1 Ml) 10 mg IVP Q4H PRN PRN Reason: HYPERTENSION Last Admin: 10/15/24 02:24 Dose: 10 mg Hydralazine HCl (Hydralazine 50 Mg Tablet) 75 mg PO TID [facility] Last Admin: 10/15/24 01:52 Dose: Not Given Albumin Human (Albumin) 25 g in 100 mls @ 60 mls/hr IV Q8H [facility] Last Infusion: 10/15/24 04:10 Dose: Infused Iron Sucrose 200 mg/ Sodium (Chloride) 110 mls @ 220 mls/hr IV Q24H TABATHA Stop: 10/16/24 15:29 Last Admin: 10/14/24 15:40 Dose: 220 mls/hr Dextrose (D5w) 500 mls @ 0 mls/hr IV ONCE PRN; Protocol PRN Reason: Adult Acute Hypoglycemia Prot Dextrose (D10w) 125 mls @ 750 mls/hr IV PRN PRN; Protocol PRN Reason: Adult Acute Hypoglycemia Nursing Protocol Dextrose (D10w) 250 mls @ 1,000 mls/hr IV PRN PRN; Protocol PRN Reason: Adult Acute Hypoglycemia Nursing Protocol Sodium Chloride (Sodium Chloride 0.9%) 1,000 mls @ 0 mls/hr IV .Q0M PRN PRN Reason: hypotension or symptomatic Albumin Human (Albumin) 12.5 gm in 50 mls @ 60 mls/hr IV PRN PRN PRN Reason: Hypotension and/or symptomatic Nitroglycerin/Dextrose (Nitroglycerin Drip) 50 mg in 250 mls @ 0 mls/hr IV .Q0M TABATHA; Protocol Last Titration: 10/15/24 05:00 Dose: 50 mcg/min, 15 mls/hr Micafungin Sodium 100 mg/ (Sodium Chloride) 100 mls @ 100 mls/hr IV Q24H TABATHA Last Infusion: 10/14/24 15:44 Dose: Infused Insulin Human Lispro (Insulin Lispro 100 Unit/1 Ml) 0 unit SUBCUT WM&BEDTIME [facility]; Protocol Last Admin: 10/14/24 21:04 Dose: 2 unit Lanolin (Lanolin Oint 7 Gm) 1 applic TOPICAL PRN PRN PRN Reason: DRYNESS Last Admin: 10/10/24 18:08 Dose: 1 applic Levothyroxine Sodium (Levothyroxine 100 Mcg Sdv) 100 mcg IVP DAILY [facility] Last Admin: 10/14/24 16:30 Dose: 100 mcg Magnesium Hydroxide (Magnesium Hydroxide 30 Ml Udc) 30 ml PO DAILY PRN PRN Reason: CONSTIPATION Meropenem (Meropenem 500 Mg Sdv) 500 mg IVP Q24H [facility]; Protocol Last Admin: 10/14/24 08:11 Dose: 500 mg Metolazone (Metolazone 5 Mg Tablet) 5 mg PO DAILY TABATHA Naloxone HCl (Naloxone 0.4 Mg/Ml Sdv) 0.1 mg IVP Q2M PRN PRN Reason: RESPIRATORY RATE < 8/MIN Nitroglycerin (Nitroglycerin 0.4 Mg Sublingual Tablet) 0.4 mg SUBLINGUAL Q5M PRN PRN Reason: CHEST PAIN Non-Formulary Medication (Melatonin) 5 mg PO BEDTIME [facility] Last Admin: 10/15/24 01:52 Dose: Not Given Pantoprazole Sodium (Pantoprazole 40 Mg Sdv) 40 mg IVP Q12H [facility] Last Admin: 10/15/24 01:54 Dose: 40 mg Vancomycin HCl (Vancomycin 1,000 Mg Sdv (Pharmacy Mix)) 0 mg XX PRN PRN PRN Reason: Pharmacy to Dose Vitals/I&O/Wt Last Vital Signs Temp 98.2 F 10/15/24 04:00 Pulse 76 10/15/24 05:46 Resp 20 H 10/15/24 01:23 BP 178/68 10/15/24 04:00 Pulse Ox 92 10/15/24 04:00 O2 Del Method BiPAP 10/15/24 04:00 O2 Flow Rate 30 10/15/24 00:00 FiO2 60 10/15/24 04:00 10/14/24 10/15/24 10/15/24 22:59 06:59 14:59 Intake Total 734.60 / 944.60 184.575 / 1129.175 Output Total 2625 / 2625 250 / 2875 Balance -1890.40 / -1680.40 -65.425 / -1745.825 Weight last 48 hrs Weight 60.5 kg Weight 64 kg Weight 65.317 kg Weight 66 kg Physical Exam 2 Narrative: The patient is on BiPAP. Still lethargic. HEENT normocephalic atraumatic neck is supple lungs- b/l crackles Heart is regular. no rub Abdomen is soft positive bowel sounds Extremities do not have edema. Neuro confused lethargic on BiPAP Data 10/15/24 06:12 10/15/24 06:12 Micro: Microbiology 10/14/24 18:04 Blood Culture - Preliminary Blood SPECIMEN COLLECTED 10/14/24 14:43 Blood Culture - Preliminary Blood SPECIMEN COLLECTED 10/14/24 14:24 Blood Culture - Preliminary Blood SPECIMEN COLLECTED 10/11/24 10:35 Gram Stain - Final Sputum - Endotracheal Tube Aspirate Sputum Culture - Preliminary Yeast species 10/13/24 05:05 Blood Culture - Preliminary Blood Lactobacillus species Yeast species A&P Assessment and plan (1) Acute kidney injury superimposed on CKD: 79-year-old lady diabetic hypertensive CKD, EF of 45% with grade 1 diastolic dysfunction and pulmonary hypertension. Patient's creatinine has been rising over the last couple years from 1.5 to 2.1 mg/dL. Patient presented after recent antibiotic and is now here with presumed utI plus minus pneumonia and non-ST elevation [place]. Patient had significant hypotension on October 05, 2024 went to the [facility] and had stents in contrast. 1. CKD stage IV baseline creatinine 2 mg/dL is presumed diabetic hypertensive. Will also send serum protein electrophoresis, there was normal in 2023. -She does not have significant proteinuria on urinalysis making diabetic nephropathy less typical here. -will dialyze again to see if helps MS 2. Acute kidney injury in this patient is likely ATN versus contrast-induced GIL. Patient had significant hypotension required significant amount of contrast on 10/05. The timeline is appropriate for contrast-induced GIL?as she was high risk on an ARB and hypotensive and infected. UPCR 08/26 UACR 90 -she is s/p ultrafiltration yesterday. Will dialyze again today. However I do not think the uremia is causing her altered mental status -ck improved to 3509 3. Patient has anemia altered mental status thrombocytopenia. Her haptoglobin was elevated on October 12 at 360 will repeat and also send LDH. Patient's total bilirubin remains normal this is unlikely to be hemolysis. However I feel it is appropriate to send an Carroll to 13 and consider hematology review can consider TTP/ aHUS she received epo x 1 -iron sat 22.8%, ferritin 533 Atypical HUS is primarily caused by dysregulation of the alternative complement pathway. This leads to uncontrolled complement activation, endothelial injury, and predominantly renal involvement, often presenting with acute kidney injury. Neurologic symptoms can occur but are less prominent than in TTP. Diagnosis is clinical, supported by evidence of complement dysregulation, and by exclusion of other causes. [id number] activity is typically >10%. First-line therapy is complement inhibition with eculizumab/ TTP is caused by a severe deficiency of the von Willebrand factor-cleaving protease [id number] (activity <10%), most commonly due to acquired autoantibodies (immune TTP) or, rarely, inherited mutations. This results in accumulation of ultra-large von Willebrand factor multimers, widespread platelet-rich microthrombi, and prominent neurologic symptoms (e.g., confusion, seizures, stroke), with less severe renal involvement compared to aHUS. Diagnosis is confirmed by severely reduced [id number] activity. First-line treatment is urgent plasma exchange to remove autoantibodies and replenish [id number], combined with immunosuppression (e.g., corticosteroids, rituximab). Caplacizumab, an anti-vWF nanobody, is also used to reduce time to platelet normalization and recurrence risk.[1-2][6-8] please have heme evaluate the pt meds reviewed The patient was seen and examined with the aid of a nurse using audiovisual equipment. Case discussed in detail with patient's nurse Plan See above. PDMP PDMP Reviewed: Not Reviewed Attestations 2 Medical Necessity Statement*: gil, anemia, thrombocytopenia, AMS Time Spent in Patient Care: Greater than 35 minutes (>than 50% of time spent in counselling and/or direct pt care on unit) . Coding Level of Care Code Acute Code for Chg Fwd Diagnoses Acute kidney injury superimposed on CKD N17.9; N18.9
[2024-10-15 07:35] LABS: Reticulocyte % 1.2 % (0.5-2.0)
[2024-10-15 07:37] LABS: Glucose Point of Care 127 mg/dL (70-110)
[2024-10-15] MEDS: budesonide 0.5 mg/2 mL Neb INHALATION (08:05)
[2024-10-15 08:30] LABS: Lactate Dehydrogenase 365 U/L (135-214)
--- NOTE | 2024-10-15 08:45 | PM.CONSULT ---
Providers/Reason For Consult Consulting Physician/Specialty*: Paula Arita MD/ Infectious disease Reason for Consult*: candidemia Requesting Physician: jose alejandro stewart MD Attending Physician: Chaz Stein M.D Primary Care Provider: Aakash Estrella MD History of Present Illness History of Present Illness Maria Isabel Ho is a 79 year old female who was admitted to the hospital on October 05, 2024 after being brought from nursing facility secondary to acute respiratory failure. EKG at that time had shown myocardial infarction for which patient was taken emergently to the [facility] Where she underwent successful revascularization of the left main proximal LAD with 2 stents. Patient was in respiratory distress during the procedure and required BiPAP during the course of it. Following the procedure she was intubated and transferred to the ICU. Hospital course has been complicated by the development of acute renal failure for which patient is currently on hemodialysis via a temporary HD catheter to the right groin which was placed on October 12, 2024. She was also diagnosed with a UTI and pneumonia and septic shock related to these issues for which she received treatment with IV antibiotics including linezolid and cefepime. Most recently patient was on meropenem. Her blood culture from October 13 returned positive for yeast for which she was started on micafungin and infectious disease service has been consulted for further recommendations for candidemia. Other notable events during this hospital admission are metabolic encephalopathy from her acute illness, GIL on CKD, respiratory failure related to likely CHF, pneumonia. CT head is without any acute changes. Review of chart shows patient has a PICC line which was placed 2 to 3 days ago. Review of Systems General: Reports: ROS unobtainable due to medical condition Medications/Allergies Home Medications ?Medication ?Instructions ?Recorded ?Confirmed ?Last Taken ?Type aspirin 81 mg tablet,delayed 81 mg PO QAM 05/06/20 10/06/24 02/29/24 History release clopidogrel 75 mg tablet 75 mg PO QAM 05/06/20 10/06/24 02/25/24 History lovastatin 40 mg tablet 40 mg PO QAM 05/06/20 10/06/24 02/25/24 History bisacodyl 10 mg rectal suppository 10 mg OH DAILY PRN Constipation 04/18/22 10/06/24 Unknown History levothyroxine 88 mcg tablet 88 mcg PO QAM 04/18/22 10/06/24 02/29/24 History magnesium hydroxide 400 mg/5 mL 30 ml PO DAILY PRN Constipation 04/18/22 10/06/24 Unknown History oral suspension (Milk of Magnesia) polyethylene glycol 3350 17 17 g PO DAILY PRN Constipation 04/18/22 10/06/24 Unknown History gram/dose oral powder sennosides 8.6 mg tablet (senna) 8.6 mg PO DAILY PRN Constipation 04/18/22 10/06/24 Unknown History hydroxyzine HCl 10 mg tablet 10 mg PO DAILY PRN Anxiety 08/16/22 10/06/24 06/11/23 History amlodipine 2.5 mg tablet 2.5 mg PO BID 05/07/23 10/06/24 03/01/24 History ferrous sulfate 325 mg (65 mg 325 mg PO QAM 05/07/23 10/06/24 02/29/24 History iron) tablet losartan 50 mg tablet 50 mg PO BID 05/07/23 10/06/24 02/29/24 History aluminum-mag hydroxide-simethicone 30 ml PO Q4H PRN Indigestion 06/12/23 10/06/24 Unknown History 200 mg-200 mg-20 mg/5 mL oral susp carboxymethylcellulose sodium 1 % 1 drp ophthalmic (eye) Q4H PRN Dry 06/12/23 10/06/24 02/29/24 History eye drops (Artificial Tears Eyes (carboxymethylcellulose)) cyanocobalamin (vitamin B-12) 500 500 mcg PO QAM 06/12/23 10/06/24 02/29/24 History mcg tablet naloxone 2 mg/2 mL syringe kit 2 mg IM Q3M PRN Opioid Overdose 06/12/23 10/06/24 Unknown History hydralazine 100 mg tablet 100 mg PO TID #270 tabs 08/06/23 10/06/24 02/29/24 Rx buspirone 10 mg tablet 10 mg PO BID 09/25/23 10/06/24 02/29/24 History acetaminophen 325 mg tablet 650 mg PO Q6H PRN Pain or temp 02/04/24 10/06/24 02/29/24 History pantoprazole 40 mg tablet,delayed 40 mg PO DAILY 02/25/24 10/06/24 02/29/24 History release cefdinir 300 mg capsule 300 mg PO BID 7 days #14 caps 10/05/24 10/06/24 Unknown Rx levofloxacin 750 mg tablet 750 mg PO Q48H 10 days #5 tabs 10/05/24 10/06/24 Unknown Rx Lactobacillus acidophilus 1,000 mmu cells PO QAM for 21 days 10/06/24 10/06/24 Unknown History (Acidophilus capsule) escitalopram oxalate 20 mg tablet 20 mg PO DAILY 10/06/24 10/06/24 Unknown History (Lexapro) ipratropium 0.5 mg-albuterol 3 mg 3 ml inhalation Q4H pneumonia 10/06/24 10/06/24 Unknown History (2.5 mg base)/3 mL nebulization soln ipratropium 0.5 mg-albuterol 3 mg 3 ml inhalation QID 10/06/24 10/06/24 Unknown History (2.5 mg base)/3 mL nebulization soln melatonin 5 mg tablet 5 mg PO BEDTIME 10/06/24 10/06/24 Unknown History zinc sulfate 50 mg zinc (220 mg) 50 mg PO QAM 10/06/24 10/06/24 Unknown History tablet Allergies Allergy/AdvReac Type Severity Reaction Status Date / Time Penicillins Allergy ALGY-Hives Verified 10/05/24 20:36 tetracycline Allergy ALGY-Hives Verified 10/05/24 20:36 Current Medications Generic Name Dose Route Start Last Admin Trade Name Freq PRN Reason Stop Dose Admin Albuterol/Ipratropium 3 ml 10/09/24 02:00 10/15/24 14:00 Ipratropium-Albuterol 3 Ml Neb INHALATION 3 ml Q6H.RESP TABATHA Administration Aspirin 81 mg 10/06/24 09:00 10/14/24 08:14 Aspirin 81 Mg Ec Tablet PO 81 mg DAILY TABATHA Administration Aspirin 300 mg 10/15/24 10:00 10/15/24 10:04 Aspirin 300 Mg Supp OH 300 mg DAILY TABATHA Administration Budesonide 0.5 mg 10/11/24 09:00 10/15/24 08:05 Budesonide 0.5 Mg/2 Ml Neb INHALATION 0.5 mg BID.RESPIRATORY TABATHA Administration Buspirone HCl 10 mg 10/14/24 18:00 10/14/24 17:33 Buspirone 10 Mg Tablet PO Not Given BID TABATHA Carvedilol 12.5 mg 10/13/24 18:00 10/14/24 17:33 Carvedilol 12.5 Mg Tablet PO Not Given BID [facility] Chlorhexidine Gluconate 1 applic 10/13/24 01:00 10/14/24 08:21 Chlorhexidine Gluconate 4% Btl 118 Ml TOPICAL 1 applic DAILY TABATHA Administration Clopidogrel Bisulfate 75 mg 10/06/24 09:00 10/14/24 08:16 Clopidogrel 75 Mg Tablet PO 75 mg DAILY TABATHA Administration Hydralazine HCl 10 mg 10/12/24 23:39 10/15/24 02:24 Hydralazine 20 Mg/Ml Inj 1 Ml IVP 10 mg Q4H PRN Administration HYPERTENSION Hydralazine HCl 75 mg 10/14/24 09:00 10/15/24 01:52 Hydralazine 50 Mg Tablet PO Not Given TID [facility] Albumin Human 25 g in 100 mls @ 60 mls/hr 10/11/24 16:00 10/15/24 09:48 Albumin IV 60 mls/hr Q8H TABATHA Administration Iron Sucrose 200 mg/ Sodium 110 mls @ 220 mls/hr 10/12/24 15:00 10/14/24 15:40 Chloride IV 10/16/24 15:29 220 mls/hr Q24H [facility] Administration Nitroglycerin/Dextrose 50 mg in 250 mls @ 0 mls/hr 10/14/24 11:30 10/15/24 11:34 Nitroglycerin Drip IV 60 mcg/min .Q0M [facility] 18 mls/hr Protocol Administration Per Protocol Micafungin Sodium 100 mg/ 100 mls @ 100 mls/hr 10/14/24 14:30 10/14/24 15:44 Sodium Chloride IV Infused Q24H [facility] Infusion Insulin Human Lispro 0 unit 10/13/24 08:00 10/15/24 11:25 Insulin Lispro 100 Unit/1 Ml SUBCUT Not Given WM&BEDTIME [facility] Protocol Lanolin 1 applic 10/09/24 18:00 10/10/24 18:08 Lanolin Oint 7 Gm TOPICAL 1 applic PRN PRN Administration DRYNESS Levothyroxine Sodium 100 mcg 10/14/24 15:55 10/15/24 09:48 Levothyroxine 100 Mcg Sdv IVP 100 mcg DAILY [facility] Administration Meropenem 500 mg 10/14/24 09:00 10/15/24 09:48 Meropenem 500 Mg Sdv IVP 500 mg Q24H TABATHA Administration Protocol Non-Formulary Medication 5 mg 10/14/24 21:00 10/15/24 01:52 Melatonin PO Not Given BEDTIME TABATHA Pantoprazole Sodium 40 mg 10/12/24 14:30 10/15/24 01:54 Pantoprazole 40 Mg Sdv IVP 40 mg Q12H TABATHA Administration PFSH Acute PFSH: Medical History Bicytopenia Peripheral arterial disease with history of revascularization Bradycardia Chronic hyponatremia Exertional dyspnea COPD exacerbation Orthostatic hypotension Syncope COPD (chronic obstructive pulmonary disease) Hx of type 2 diabetes mellitus Peripheral vascular disease Hx of chest pain History of hypertension Frequent falls Hx of hyperlipidemia Chronic back pain Postmenopausal Impaired physical mobility Hx of renal calculi Smoker Chronic kidney disease (CKD) Surgical History Hx of tubal ligation Family History Grandmother Clotting disorder Brother Cancer Diabetes Stroke Son Chronic kidney disease (CKD) Mother Diabetes Father Stroke Denies family history of CAD (coronary artery disease) Dementia Suicide Anesthesia complication Bleeding disorder Lung disease Social History Smoking and tobacco/nicotine status: current some day tobacco/nicotine user Alcohol intake: never Substance/Drug Use: never Vitals/I&O/Wt Last Vital Signs Temp 98.1 F 10/15/24 16:14 Pulse 119 H 10/15/24 16:14 Resp 18 10/15/24 16:14 BP 84/49 10/15/24 16:14 Pulse Ox 90 10/15/24 15:28 O2 Del Method BiPAP 10/15/24 14:00 O2 Flow Rate 30 10/15/24 00:00 FiO2 100 10/15/24 15:28 10/15/24 10/15/24 10/15/24 06:59 14:59 22:59 Intake Total 184.575 / 1129.175 98.55 / 98.55 300 / 398.55 Output Total 250 / 2875 2300 / 2300 Balance -65.425 / -1745.825 98.55 / 98.55 -2000 / -1901.45 Weight last 48 hrs Weight 59.5 kg Weight 60.5 kg Weight 64 kg Weight 65.317 kg Weight 66 kg Physical Exam Narrative: General: Ill-appearing, currently on BiPAP, altered mentation, does not appear to follow any commands. HEENT: PERRLA, pupils bilaterally equal and reactive, pallors not present Chest: Normal vesicular breath sounds, no added sounds, equal good air entry bilaterally CVS: S1-S2 regular, no murmurs, no tachycardia, no gallops, no rubs Abdomen: Soft, nontender, no organomegaly, bowel sounds present Neuro: Ill-appearing, on BiPAP, Data 10/15/24 06:12 10/15/24 06:12 Micro: Microbiology 10/14/24 14:43 Blood Culture - Preliminary Blood NEGATIVE TO DATE 10/14/24 14:24 Blood Culture - Preliminary Blood NEGATIVE TO DATE 10/11/24 10:35 Gram Stain - Final Sputum - Endotracheal Tube Aspirate Sputum Culture - Final Yeast species 10/14/24 18:04 Blood Culture - Preliminary Blood SPECIMEN COLLECTED 10/13/24 05:05 Blood Culture - Preliminary Blood Lactobacillus species Yeast species Other data: Radiology Impressions Abdomen/Pelvis CT 10/07/24 07:47 IMPRESSION: 1. Large esophageal hernia. 2. Small bilateral pleural effusions with compressive atelectasis and infiltrates in the lung bases. 3. Bilateral renal atrophy with parenchymal scarring. No hydronephrosis. 4. Mcmillan catheter. 5. Rectosigmoid constipation. 6. Hepatomegaly. 7. No other acute findings. Chest CT 10/11/24 10:30 IMPRESSION: 1. Nasogastric tube in good position. 2. Endotracheal tube in good position. 3. New small bilateral pleural effusions, RIGHT greater than LEFT. 4. Improved pneumonia LEFT upper lobe. 5. Mild dependent changes along the pleural fissures. Mild hazy attenuation throughout both lungs may be due to fluid overload. 6. Very dense atherosclerotic calcification within the thoracic aorta and suprarenal abdominal aorta. 7. Soft tissue anasarca from fluid overload. 8. Large hiatal hernia. Head CT 10/11/24 10:30 IMPRESSION: 1. No acute intracranial hemorrhage or edema. 2. Severe bilateral cerebral and cerebellar atrophy with mild small vessel disease. 3. Chronic lacunar infarct LEFT caudate. 4. Patient is intubated. Chest X-Ray 10/15/24 06:00 IMPRESSION: Increasing bibasilar opacities, greatest in the left lower lobe. Laboratory Results WBC 8.95 10^3/uL (3.29-11.43) 10/15/24 06:12 Corrected WBC Cancelled 10/15/24 04:57 RBC 2.51 10^6/uL (3.85-5.65) L 10/15/24 06:12 Hgb 7.30 g/dL (11.27-16.99) L 10/15/24 06:12 Hct 22.8 % (36-47) L 10/15/24 06:12 MCV 90.8 fl (85-98) 10/15/24 06:12 MCH 29.1 pg (27-33) 10/15/24 06:12 MCHC 32.0 g/dL (30-55) D 10/15/24 06:12 RDW 14.4 % (12.1-15.1) 10/15/24 06:12 Plt Count 39 10^3/cmm (157-399) L D 10/15/24 06:12 MPV 13.4 fL (7.4-10.4) H 10/15/24 06:12 Gran % Cancelled 10/15/24 04:57 Neut % (Auto) 86.8 % 10/15/24 06:12 Lymph % (Auto) 4.1 % 10/15/24 06:12 [place] % (Auto) 6.5 % 10/15/24 06:12 Eos % (Auto) 0.6 % 10/15/24 06:12 Baso % (Auto) 0.1 % 10/15/24 06:12 Reticulocyte % (Auto) 1.2 % (0.5-2.0) 10/15/24 06:12 Neut # (Auto) 7.77 10^3/uL (1.8-7.7) H 10/15/24 06:12 Lymph # (Auto) 0.4 10^3/uL (0.8-4.8) L 10/15/24 06:12 [place] # (Auto) 0.6 10^3/uL (0.2-0.9) 10/15/24 06:12 Eos # (Auto) 0.1 10^3/uL (0.0-0.8) 10/15/24 06:12 Baso # (Auto) 0.0 10^3/uL (0.0-0.1) 10/15/24 06:12 Absolute Gran (auto) Cancelled 10/15/24 04:57 Nucleated RBC % (auto) 0.2 % 10/15/24 06:12 Nucleated RBCs # 0.0 /100WBC 10/15/24 06:12 Haptoglobin 273.0 mg/L (30-200) H 10/15/24 06:12 PT 16.20 SECONDS (12.1-14.9) H 10/15/24 09:53 INR 1.22 (0.8-1.2) H 10/15/24 09:53 APTT 42.7 SECONDS (23.9-36.7) H 10/15/24 09:53 Fibrinogen 282 mg/dL (174-498) 10/15/24 09:53 D-Dimer 5.49 ug/mLFEU (0-0.59) H 10/15/24 09:53 Specimen Type Arterial 10/14/24 17:50 Sample Site Radial, right 10/14/24 17:50 ABG pH 7.48 (7.35-7.45) H 10/14/24 17:50 ABG pCO2 31.7 mmHg (35-45) L 10/14/24 17:50 ABG pO2 85.5 mmHg (80.0-100.0) 10/14/24 17:50 ABG PO2/FiO2 Ratio 285 10/14/24 17:50 ABG HCO3 23.6 mmol/L (22-26) 10/14/24 17:50 ABG O2 Saturation 98.1 10/14/24 17:50 ABG Base Excess 0.2 mmol/L (-2.0-2.0) 10/14/24 17:50 [place] Test Pos 10/14/24 17:50 A-a O2 Gradient 11.3 mmHg (5-10) H 10/14/24 17:50 Hematocrit 21.8 % (37-47) L 10/14/24 17:50 Hgb O2 Saturation 95.6 % (95-100) 10/14/24 17:50 Carboxyhemoglobin 1.1 %THgb (0.4-20.1) 10/14/24 17:50 Methemoglobin 1.5 % (0.4-1.5) 10/14/24 17:50 Total Hemoglobin 7.1 g/dL (12-16) L 10/14/24 17:50 Sodium 140.0 mmol/L (131-143) 10/14/24 17:50 Potassium 3.7 mmol/L (3.5-5.0) 10/14/24 17:50 Glucose 125.0 mg/dL (70-115) H 10/14/24 17:50 Ionized Calcium 1.2 mmol/L (1.1-1.4) 10/14/24 17:50 O2 Delivery Device Bipap 10/14/24 17:50 SIMV 18.0 10/05/24 22:29 FiO2 30.0 % 10/14/24 17:50 Tidal Volume 0.40 10/14/24 03:38 PEEP 5.0 cmH20 10/14/24 03:38 Child Development Instructor ID Gd 10/14/24 17:50 Sodium 141 mmol/L (136-145) 10/15/24 06:12 Potassium 4.0 mmol/L (3.5-5.1) 10/15/24 06:12 Chloride 101 mmol/L (98-107) 10/15/24 06:12 Carbon Dioxide 20 mmol/L (22-29) L 10/15/24 06:12 Anion Gap 24.0 (5-19) H 10/15/24 06:12 BUN 56 mg/dL (8-23) H 10/15/24 06:12 Creatinine 2.9 mg/dL (0.5-0.9) H 10/15/24 06:12 GFR Calculation Not Reportable 10/15/24 06:12 Glucose 112 mg/dL (65-115) 10/15/24 06:12 POC Glucose 131 mg/dL (70-110) H 10/15/24 11:25 Estimat Average Glucose 111 10/11/24 03:24 Hemoglobin A1c 5.5 % (4.0-6.0) 10/11/24 03:24 Calculated Osmolality 308 mOsm/kg (285-295) H 10/15/24 06:12 Lactic Acid 4.2 mmol/L (0.5-2.2) H* 10/05/24 20:41 Lactic Acid (Sepsis) 7.0 mmol/L (0.5-2.2) H* 10/05/24 23:42 Lactate 2.1 mmol/L (0.5-2.2) 10/07/24 13:45 Uric Acid 9.2 mg/dL (2.4-5.7) H 10/07/24 04:09 Calcium 9.2 mg/dL (8.5-10.5) 10/15/24 06:12 Phosphorus 3.2 mg/dL (2.5-4.5) 10/15/24 06:12 Magnesium 2.0 mg/dL (1.7-2.3) 10/15/24 06:12 Iron 27 ug/dL (37-145) L 10/08/24 03:30 TIBC 118 mcg/dl 10/08/24 03:30 % Saturation 22.8 % (20-50) 10/08/24 03:30 Unsat Iron Binding 91 ug/dL (112-347) L 10/08/24 03:30 Ferritin 533 ng/mL (15-150) H 10/08/24 03:30 Total Bilirubin 0.8 mg/dL (0.15-1.2) 10/15/24 06:12 GGT 10 U/L (5-36) 10/12/24 03:35 AST 63 U/L (0-32) H 10/15/24 06:12 ALT 32 U/L (0-33) 10/15/24 06:12 Alkaline Phosphatase 52 U/L (35-105) 10/15/24 06:12 Ammonia 12 umol/L (11-51) 10/12/24 17:27 Lactate Dehydrogenase 365 U/L (135-214) H 10/15/24 06:12 Creatine Kinase 3509 U/L (26-192) H* 10/13/24 14:50 Troponin T Baseline 348 ng/L (0-10) H* 10/05/24 20:41 Troponin T 120 Minute 518.7 ng/L (0-10) H 10/05/24 23:42 Delta Troponin T 170.7 ABS# (0-10) H* 10/05/24 23:42 Troponin T Hi Sens 6Hr 605.6 ng/L (0-10) H 10/06/24 02:43 Troponin T Hi Sens 6Hr Delta 257.6 ng/L (0-12) H* 10/06/24 02:43 NT-Pro-B Natriuret Pep 59679 pg/mL (0-450) H 10/05/24 20:41 Total Protein 6.4 g/dL (6.6-8.7) L 10/15/24 06:12 Albumin 4.7 g/dL (3.5-5.2) 10/15/24 06:12 Globulin 1.7 g/dL (1.3-4.6) 10/15/24 06:12 Triglycerides 183 mg/dL (0-150) H 10/12/24 03:35 Cholesterol 92 mg/dL (0-200) 10/12/24 03:35 LDL Cholesterol, Calc 38 mg/dL (50-129) L 10/12/24 03:35 Total VLDL Cholesterol 37 mg/dL (0-30) H 10/12/24 03:35 HDL Cholesterol 17 mg/dL (60-100) L 10/12/24 03:35 Cholesterol/HDL Ratio 5.41 mg/dL (0.0-4.40) H 10/12/24 03:35 Vitamin B12 > 2000 pg/mL (232-1245) H 10/11/24 03:24 25-OH Vitamin D Total 8 ng/mL (30-100) L 10/08/24 03:30 Folate 7.2 ng/mL (4.8-37.3) 10/12/24 03:35 Procalcitonin 5.21 ng/mL (0-0.5) H 10/11/24 03:24 TSH 12.85 uIU/mL (0.27-4.20) H 10/14/24 05:07 Free T4 0.46 ng/dL (0.82-1.77) L 10/14/24 05:07 PTH Intact 289.7 pg/mL (15-65) H 10/08/24 03:30 Calcium (PTH Intact) 6.5 mg/dL (8.5-10.5) L 10/08/24 03:30 Random Cortisol 20.68 ug/dL (2.47-19.5) H 10/14/24 05:07 Urine Color Yellow (Yellow) 10/07/24 15:00 Urine Appearance Cloudy (CLEAR) A 10/07/24 15:00 Urine pH 5.0 (5-7) 10/07/24 15:00 Ur Specific [place] 1.040 (1.005-1.030) H 10/07/24 15:00 Urine Protein 1+ (Negative) A 10/07/24 15:00 Urine Glucose (UA) Negative (Normal) 10/07/24 15:00 Urine Ketones Negative (Negative) 10/07/24 15:00 Urine Blood 3+ (Negative) A 10/07/24 15:00 Urine Nitrate Negative (Negative) 10/07/24 15:00 Urine Bilirubin Negative (Negative) 10/07/24 15:00 Urine Urobilinogen 1.0 mg/dL (Negative) 10/07/24 15:00 Ur Leukocyte Esterase Trace (Negative) A 10/07/24 15:00 Urine RBC 21-50 /hpf (0-2) H 10/07/24 15:00 Urine WBC 11-20 /hpf (0-5) H 10/07/24 15:00 Ur Squamous Epith Cells 0-5 /hpf (0-5) 10/07/24 15:00 Amorphous Sediment Trace /hpf 10/07/24 15:00 Hyaline Casts 0.81 /lpf 10/07/24 15:00 Fine Granular Casts 0-4 /lpf H 10/07/24 15:00 Ur Random Microalbumin 7 ug/dL (0-20) 10/07/24 15:00 U Random Total Protein 52 mg/dL 10/07/24 15:00 Ur Random Sodium 28 mmol/L 10/11/24 12:15 Ur Random Potassium 32 mmol/L 10/11/24 12:15 Ur Random Chloride 11 mmol/L 10/11/24 12:15 Urine Creatinine 72 mg/dL (28-217) 10/11/24 12:15 Microalb/Creat Ratio 90 mg/dL (0-20) H 10/07/24 15:00 Nasal MRSA (PCR) Mrsa detected (Not Detecte) A 10/11/24 11:00 Vancomycin Trough 15.4 ug/mL (10-15) H 10/14/24 18:04 Random Vancomycin 14.0 ug/mL (20.0-40.0) L 10/15/24 06:12 ROBERT Screen Positive (NEGATIVE) A 10/08/24 03:30 ROBERT Titer 1:1280 titer H 10/08/24 03:30 ROBERT Pattern Nuclear, nucleolar A 10/08/24 03:30 ANCA Screen Negative (NEGATIVE) 10/08/24 03:30 ANCA Titer Not Reportable 10/08/24 03:30 Anti-ds DNA IgG Ab 6 IU/mL H 10/08/24 03:30 Glomerular Base Mem IgG <1.0 AI 10/08/24 03:30 Complement C3 112 mg/dL (90-180) 10/07/24 04:09 Complement C4 24 mg/dL (10-40) 10/07/24 04:09 Adenovirus (PCR) Not detected (NOT DETECT) 10/12/24 09:02 C. pneumoniae DNA (PCR) Not detected (NOT DETECT) 10/12/24 09:02 Coronavirus 229E (PCR) Not detected (NOT DETECT) 10/12/24 09:02 Hep Bs Antigen Non-reactive (Nonreactive) 10/12/24 03:35 Hep Bs Antibody < 3.5 (11.5-1000) L 10/12/24 03:35 Hepatitis C Antibody Non-reactive (Nonreactive) 10/12/24 03:35 Human Metapneumovir PCR Not detected (NOT DETECT) 10/12/24 09:02 Influenza A (H1) PCR Not detected (NOT DETECT) 10/12/24 09:02 Influ A (H1/09) PCR Not detected (NOT DETECT) 10/12/24 09:02 Influenza A (H3) PCR Not detected (NOT DETECT) 10/12/24 09:02 Influenza Type A (PCR) Not detected (NOT DETECT) 10/12/24 09:02 Influenza Type B (PCR) Not detected (NOT DETECT) 10/12/24 09:02 M. pneumoniae (PCR) Not detected (NOT DETECT) 10/12/24 09:02 Parainfluenza 1 (PCR) Not detected (NOT DETECT) 10/12/24 09:02 Parainfluenza 2 (PCR) Not detected (NOT DETECT) 10/12/24 09:02 Parainfluenza 3 (PCR) Not detected (NOT DETECT) 10/12/24 09:02 Parainfluenza 4 (PCR) Not detected (NOT DETECT) 10/12/24 09:02 RSV Type A (PCR) Not detected (NOT DETECT) 10/12/24 09:02 RSV Type B (PCR) Not detected (NOT DETECT) 10/12/24 09:02 Entero/Rhino (PCR) Not detected (NOT DETECT) 10/12/24 09:02 SARS-CoV-2 (PCR) Not detected (NOT DETECT) 10/12/24 09:02 Blood Type O Positive 10/12/24 22:00 Rho(D) Type Rh positive 10/12/24 22:00 Antibody Screen Negative 10/12/24 22:00 Crossmatch See Detail 10/12/24 22:00 A&P Assessment and plan (1) Fungemia: (2) Invasive fungal infection: Plan 79-year-old lady with hospital course as described above was been admitted to the hospital since October 05, 2024 initially presenting with a myocardial infarction for which she underwent successful revascularization with hospital course complicated by acute respiratory distress for which she initially required mechanical ventilation. She is currently extubated, however needing to be maintained on BiPAP due to poor respiratory status. She was also diagnosed with pneumonia and UTI for which she was on extended course of cefepime and linezolid. Patient has needed temporary dialysis during the course of this admission and currently has a femoral line in the right groin. Additionally has a PICC line placed in the left arm. 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 Patient has several risk factors for candidemia as noted above, notably prolonged ICU stay, multiple lines of interventions as above. Recommend to obtain CT of the chest abdomen and pelvis for source evaluation. Recommend to remove PICC line TTE to assess for any vegetations. Please remove previously placed HD catheter and replace with a new temporary catheter. Eventually will need an ophthalmology exam to rule out endophthalmitis. Agree with Micafungin 100mg iv every 24 hrs. repeat blood cx ordered and pending. Per discussion with micro lab, yeast species from October 13 blood cultures are preliminary identified as Bobbi spp on PCR. Further identification on culture is pending. Additionally requested send out to [facility] for sensitivity. Will follow-up with results of above testing, line removal. PDMP PDMP Reviewed: Not Reviewed Consult Attestations Medical Necessity Statement: per admiting note Coding Level of Care Code Acute Code for Chg Fwd High MDM includes number and complexity of problems actively addressed during encounter, amount and/or complexity of data reviewed/ordered and described risk of complication, morbidity or mortality of management as documented Diagnoses Fungemia B49 Invasive fungal infection B49
--- NOTE | 2024-10-15 09:24 | PC.SLP ---
Looked at pt and spoke with nursing. Pt not appropriate at this moment. Will check back later this afternoon.
[2024-10-15] MEDS: meropenem 500 mg SDV IVP (09:48)
[2024-10-15] MEDS: levothyroxine 100 mcg SDV IVP (09:48)
--- NOTE | 2024-10-15 10:01 | PC.NURSE ---
Dr. Reyes at bedside, plan to try to wean off bipap to [facility] per RT to allow speech eval and po meds
--- NOTE | 2024-10-15 10:02 | PM.PN ---
Subjective Subjective: Patient has been extubated. On exam, she is resting. On bipap. Blood pressure still high. She is currently on nitro drip. She got hemodialysis yesterday. Creatinine is 2.9. -1745 over 24 hours. Platelets are down to 29. Vitals/I&O/Wt Last Vital Signs Temp 98.2 F 10/15/24 04:00 Pulse 72 10/15/24 09:57 Resp 22 H 10/15/24 07:45 BP 178/68 10/15/24 04:00 Pulse Ox 98 10/15/24 09:57 O2 Del Method BiPAP 10/15/24 07:45 O2 Flow Rate 30 10/15/24 00:00 FiO2 40 10/15/24 09:57 10/14/24 10/15/24 10/15/24 22:59 06:59 14:59 Intake Total 734.60 / 944.60 184.575 / 1129.175 Output Total 2625 / 2625 250 / 2875 Balance -1890.40 / -1680.40 -65.425 / -1745.825 Weight last 48 hrs Weight 133 lb 6.075 oz Weight 141 lb 1.533 oz Weight 144 lb Weight 145 lb 8.081 oz Physical Exam Narrative: General: on bipap, lethargic HENMT: normoceophalic Respiratory: Normal respiratory effort, Course bilateral upper and lower lobes throughout, no use of accessory muscles Cardio: No JVD, regular rate, regular rhythm, S1 S2 normal, no murmurs, peripheral pulses 2+ radial palpated bilaterally Extremities: Full ROM, normal, normal capillary refill, no cyanosis or edema Neuro: lethargic Skin: mild bruising bilateral upper extremities Data 10/15/24 06:12 10/15/24 06:12 Micro: Microbiology 10/14/24 18:04 Blood Culture - Preliminary Blood SPECIMEN COLLECTED 10/14/24 14:43 Blood Culture - Preliminary Blood SPECIMEN COLLECTED 10/14/24 14:24 Blood Culture - Preliminary Blood SPECIMEN COLLECTED 10/11/24 10:35 Gram Stain - Final Sputum - Endotracheal Tube Aspirate Sputum Culture - Preliminary Yeast species 10/13/24 05:05 Blood Culture - Preliminary Blood Lactobacillus species Yeast species A&P Assessment and plan (1) Unstable angina: (2) Peripheral arterial disease with history of revascularization: (3) Paroxysmal atrial flutter: (4) Benign hypertension: (5) Chronic kidney disease (CKD): (6) Pneumonia: (7) NSTEMI (non-ST elevated myocardial infarction): Plan Patient had PCI of left main to proximal LAD with 2 stents. On aspirin and Plavix. Echo shows mildly reduced LV systolic function. She got dialysis again yesterday. Patient is being seen by nephrology. Appreciate their assistance. Patient is now off of pressors and bp elevated. Currently on nitro drip. Will continue amlodipine 10 mg daily, continue metoprolol to 50 BID, hydralazine 10 mg q4 prn systolic bp at or above 170. Will continue hydralazine PO 75 TID. Hospitalist team is onboard as well. We appreciate their assistance. Medicine team on board for management of medical issues and vent management. Appreciate assistance. At this time, patient has been extubated, but very lethargic. Prognosis appears poor/guarded at this time. PDMP PDMP Reviewed: Not Reviewed Attestations Medical Necessity Statement*: Acute [place], acute respiratory failure, patient on bipap Coding Level of Care Code Acute Code for [facility] Fwd Diagnoses Unstable angina I20.0 Peripheral arterial disease with history of revascularization I73.9; Z98.890 Paroxysmal atrial flutter I48.92 Benign hypertension I10 Chronic kidney disease, unspecified CKD stage N18.9 Chronic kidney disease stage: unspecified stage Pneumonia due to infectious organism, unspecified laterality, unspecified part of lung J18.9 Laterality: unspecified laterality Lung location: unspecified part of lung Pneumonia type: due to unspecified organism NSTEMI (non-ST elevated myocardial infarction) I21.4
--- NOTE | 2024-10-15 10:03 | PC.SOCIAL ---
IMM Updated Provided pt a copy. Initialed, dated, & timed copy in chart.
[2024-10-15] MEDS: aspirin 300 mg Supp PR (10:04)
[2024-10-15 10:20] LABS: Reflex FDPQ test REFLEX FDP QUEST TES
[2024-10-15 11:27] LABS: Glucose Point of Care 131 mg/dL (70-110)
[2024-10-15] MEDS: vancomycin 500 MG in sodium chloride 0.9% (plus) 100 ML 200 MG IV (11:27)
[2024-10-15 11:31] LABS: INR 1.22 (0.8-1.2)
[2024-10-15 11:32] LABS: Partial Thromboplastin Time 42.7 SECONDS (23.9-36.7)
[2024-10-15] MEDS: nitroglycerin drip 50 MG/250 ML PREMIX 18 MG IV (11:34)
[2024-10-15 11:39] LABS: Fibrinogen 282 mg/dL (174-498)
[2024-10-15 11:41] LABS: D Dimer 5.49 ug/mLFEU (0-0.59)
--- NOTE | 2024-10-15 13:26 | PC.SLP ---
Attempted again. On dialysis. Continues to not be appropriate after speaking with RN and RT.
--- NOTE | 2024-10-15 13:42 | PC.NURSE ---
Dr. Longo at bedside to exchange dialysis line, spoke to family for consent
--- NOTE | 2024-10-15 14:04 | PC.NURSE ---
New line placed by Dr. Longo, dialysis currently running
--- NOTE | 2024-10-15 14:17 | P.PN_ITS ---
Subjective 2 Subjective: Fungemic Vitals/I&O/Wt Last Vital Signs Temp 97.9 F 10/15/24 12:45 Pulse 88 10/15/24 14:00 Resp 21 H 10/15/24 14:00 BP 177/70 10/15/24 12:45 Pulse Ox 92 10/15/24 14:00 O2 Del Method BiPAP 10/15/24 14:00 O2 Flow Rate 30 10/15/24 00:00 FiO2 50 10/15/24 14:00 10/14/24 10/15/24 10/15/24 22:59 06:59 14:59 Intake Total 734.60 / 944.60 184.575 / 1129.175 98.55 / 98.55 Output Total 2625 / 2625 250 / 2875 Balance -1890.40 / -1680.40 -65.425 / -1745.825 98.55 / 98.55 Weight last 48 hrs Weight 133 lb 6.075 oz Weight 141 lb 1.533 oz Weight 144 lb Weight 145 lb 8.081 oz Physical Exam 2 Narrative: RRR On bipap Abdomen soft, nt, nd Right temporary dialysis catheter functional Data 10/15/24 06:12 10/15/24 06:12 Micro: Microbiology 10/11/24 10:35 Gram Stain - Final Sputum - Endotracheal Tube Aspirate Sputum Culture - Final Yeast species 10/14/24 18:04 Blood Culture - Preliminary Blood SPECIMEN COLLECTED 10/14/24 14:43 Blood Culture - Preliminary Blood SPECIMEN COLLECTED 10/14/24 14:24 Blood Culture - Preliminary Blood SPECIMEN COLLECTED 10/13/24 05:05 Blood Culture - Preliminary Blood Lactobacillus species Yeast species A&P Assessment and plan (1) Fungemia: (2) Acute kidney injury superimposed on CKD: Plan 79 yo female in [place] whom surgery was consulted for dialysis line exchange since she is now fungemic. Discussed risks and benefits with POA who agreed to proceed. PDMP PDMP Reviewed: Not Reviewed Attestations 2 Medical Necessity Statement*: NA Coding Level of Care Code 82036 Diagnoses Fungemia B49 Acute kidney injury superimposed on CKD N17.9; N18.9
--- NOTE | 2024-10-15 14:20 | PM.ACPR ---
Procedure/Consent Consent: Consent for Procedure: Consent obtained from other (indicate) (son) and Agrees to proceed with procedure Procedure Narrative: Discussed risks and benefits and consent was obtained to performed a temporary dialysis catheter replacement. The temporary dialysis catheter was removed. Pressure held for 3 minutes. The right groin was prepped and draped in the usual sterile fashion. Ultrasound was used to identify the right common femoral vein. Local infiltration done using 5 cc of 1% lidocaine. A finder needle was used to access the right common femoral vein under ultrasound guidance. Able to draw venous blood. I then threaded a wire through the finder needle. I removed the needle and confirmed adequate placement of the wire in the right common femoral vein using ultrasound. Using an 11 blade a stab incision was done next to the wire to accommodate for the dilators. I serially dilated the tract using 2 dilators. I was then able to place the 20 cm dual-lumen temporary dialysis catheter using the Seldinger technique. I was able to draw blood and flushed easily through both lumens. Catheter was secured in place with sutures. A sterile dressing was applied. Catheter is ready for immediate use.
--- NOTE | 2024-10-15 15:07 | PC.NURSE ---
patient not able to come off biap at this time, increased oxygen need
--- NOTE | 2024-10-15 15:18 | PC.SLP ---
Spoke with JESSENIA Wheeler. Per EMR, cannot be weaned. Liam reported worsening. Not appropriate at this time.
--- NOTE | 2024-10-15 15:26 | P.PN_ITS ---
Subjective 2 Subjective: Seen multiple times today. Patient was extubated yesterday. Overnight patient has remained on BiPAP with FiO2 between 40 to 80% with saturation over 90%. Patient is awake, alert following in the room with eyes but not able to communicate. Moving limbs. Blood pressure remained elevated. She is on nitro drip. Vitals/I&O/Wt Last Vital Signs Temp 97.9 F 10/15/24 12:45 Pulse 75 10/15/24 15:06 Resp 21 H 10/15/24 14:00 BP 177/70 10/15/24 12:45 Pulse Ox 93 10/15/24 14:21 O2 Del Method BiPAP 10/15/24 14:00 O2 Flow Rate 30 10/15/24 00:00 FiO2 50 10/15/24 14:21 10/15/24 10/15/24 10/15/24 06:59 14:59 22:59 Intake Total 184.575 / 1129.175 98.55 / 98.55 Output Total 250 / 2875 Balance -65.425 / -1745.825 98.55 / 98.55 Weight last 48 hrs Weight 60.5 kg Weight 64 kg Weight 65.317 kg Weight 66 kg Physical Exam 2 Narrative: General: Intubated, currently not sedated, somnolent HENMT: normoceophalic Respiratory: Normal respiratory breath sounds all over lung [place] with occasional rhonchi and crackles bilaterally, left more than right, prozone more than lower zone Cardio: No JVD, regular rate, regular rhythm, S1 S2 normal, no murmurs. Abdomen: Soft, mildly distended. Bowel sounds are hypoactive. Neuro: Intubated, somnolent Extremity: Bilateral 2+ pitting edema up to knees Data 10/15/24 06:12 10/15/24 06:12 Micro: Microbiology 10/14/24 14:43 Blood Culture - Preliminary Blood NEGATIVE TO DATE 10/14/24 14:24 Blood Culture - Preliminary Blood NEGATIVE TO DATE 10/11/24 10:35 Gram Stain - Final Sputum - Endotracheal Tube Aspirate Sputum Culture - Final Yeast species 10/14/24 18:04 Blood Culture - Preliminary Blood SPECIMEN COLLECTED 10/13/24 05:05 Blood Culture - Preliminary Blood Lactobacillus species Yeast species A&P Assessment and plan (1) Respiratory failure: Currently mechanically ventilated. On minimal ventilator support. Patient continues to have metabolic encephalopathy most likely in setting of uremia from renal dysfunction and hyponatremia. Remains off sedation since Friday. Eventually patient's mentation improved after dialysis and improvement in hyponatremia and uremia. Extubated on 10/14. Oxygen supplementation keeping saturation over 88%. Continues to have fluid overload. Continue with BiPAP ventilation for now. Wean keeping saturation more than 88%. Continue with Pulmicort twice daily, continue with DuoNebs every 6 hour. PT/OT/speech evaluation. Start on medications if patient is able to tolerate orally postextubation. (2) Acute kidney injury superimposed on CKD: Baseline creatinine around 1.5. Creatinine and uremia continues to worsen. Combination of ATN and RIRI. Associated with uremia, metabolic acidosis. Metabolic acidosis, uremia, hyponatremia resolving. Nephrology on board. Continue with temporary dialysis. Undergoing dialysis every day. Plan for the session of dialysis today for net negative ultrafiltration. Patient still overall around 6 to 7 L positive Continue with IV albumin every 8 hours. Strict input output charting, daily weights. Medical reconciliation done for nephrotoxic drugs. CT on pelvis negative for obstructive nephropathy. (3) Accelerated hypertension: Associated with respiratory failure due to fluid overload. Goal blood pressure less than 140/90 mmHg. Currently on amlodipine 10 mg oral daily, Coreg 12.5 mg twice daily. Hydralazine 75 mg thrice daily has been added by cardiology team. Not able to take oral medications. Not able to place Dobbhoff or NGT. Continue with nitro drip. Add clonidine patch 0.2 mg. Wean keeping goal blood pressure. Will plan to transition to oral medication if patient is will tolerate orally. (4) Systolic congestive heart failure: Ischemic cardiomyopathy. Echocardiogram shows EF of 45 to 50%, grade 1 diastolic function, mild MR, mild TR. Patient not responding to IV Lasix 80 mg. Getting dialysis. (5) Acute metabolic encephalopathy: Most likely in setting of acute renal failure leading to uremia. Also has hyponatremia. Normal ammonia levels. Resolving. Appreciate thyroid panel, cortisol random. Stated on IV levothyroxine. Continue to remain off sedation for now. Appreciate CT head. (6) Fungemia: Sputum culture growing yeast. Blood culture from 10/13 from periphery 1 bottle growing budding yeast.Will request sensitivities and identification from micro lab. Repeat blood culture sent on 10/14. Appreciate ID recommendations. Will plan to replace HD catheter, remove PICC line after IV peripheral placement. Echocardiogram to rule out infective endocarditis. CT chest abdomen pelvis with CT neck for further evaluation. Continue with IV micafungin. (7) Severe hypothyroidism: Appreciate thyroid panel. IV levothyroxine 100 mcg daily. Monitor thyroid panel every 48-72 hours. (8) Uremia: (9) NSTEMI (non-ST elevated myocardial infarction): Post PCI for critical ostial LAD and left main. Appreciate cardiology recommendations. Continue with DAPT with aspirin, Plavix, statin, beta-koby with metoprolol 12.5 mg twice daily. Echocardiogram done shows EF of 45 to 50% grade 1 diastolic dysfunction, mild MR, mild TR with mild pulmonary hypertension. (10) Anemia: Post monitor blood transfusion. Target hemoglobin more than 8. Continue with IV iron supplementation. (11) COPD (chronic obstructive pulmonary disease): (12) Chronic hyponatremia: (13) Lactic acidosis: (14) Metabolic acidosis: (15) Benign hypertension: Plan Code Status: Full IVF: Stop IV fluids DVT PPx: Hold heparin given concerns for platelet count drop of more than 50%. SCD for DVT prophylaxis. GI PPx: Protonix 40 mg IV every 12 hourly ABx: Vancomycin, meropenem, micafungin Diet: NPO. Discharge plan: Back to SNF when stable. Discussed symptoms with patient's son Mr. Darrion Ho over the phone. Discussed unfortunately patient's mentation is still extremely poor but slightly improving with dialysis. Discussed plan would be to continue dialysis for 1 more day and if her oxygen saturations remain stable to possibly extubated tomorrow. Discussed as a possibility if her mentation does not improve she might not tolerate extubation well or might have desaturation later in admission in which she might need to be put back on ventilator. Discussed further goals of care regarding her baseline comorbidities. Son states he would discuss further with his brothers and would get back to us to see if they would want her to go back on ventilator if need be. For now CODE STATUS will remain full code. 10/15: Discussed in detail with Mr. Maier again. We discussed that unfortunately even after extubation yesterday patient remains on BiPAP and without BiPAP she is going into fluid overload requiring recurrent dialysis along with new diagnosis of fungemia. We discussed with fungemia the mortality chances increasing by 40%. We discussed for now she is able to maintain airway on BiPAP but if she is not able to maintain saturations on BiPAP neck step would be intubation. Darrion states he and his brother are on the way and should be in hospital by tomorrow. He would be okay with her being on ventilator again for now and would not make further decisions when he arrives at bedside tomorrow. He understands Maria Isabel is extremely sick and there is a high chance of her mortality but would like to meet her before making her comfort care or hospice and would be okay with her requiring mechanical ventilation. PDMP PDMP Reviewed: Not Reviewed Attestations 2 Medical Necessity Statement*: Requires further hospitalization for management of respiratory failure postextubation, metabolic encephalopathy in setting of uremia, acute kidney injury requiring temporary dialysis, fungemia, severe hypothyroidism in a patient admitted for non-ST elevation [place] post PCI Critical Care Time: The high probability of a clinically significant, sudden or life threatening deterioration of the patient's [cardiac, pulmonary, renal, ID, neurological] s ystem(s) required my full and direct attention, intervention and personal management. The critical care time is as shown. This time is in addition to time spent performing any reported procedures but includes the following: [x] Data and vital sign review and interpretation [x] Patient assessment, examination and intervention [x] Documentation [x] Medication orders and management Critical Care Time (min): 90 Coding Level of Care Code Critical Care >/= 30 minutes Critical care time (in minutes): 90 The high probability of a clinically significant, sudden or life threatening deterioration, as referenced in this documentation, required my full and direct attention, intervention and personal management. The critical care time shown is in addition to time spent performing any reported separately billable procedures and includes the following: [x] Data and vital sign review and interpretation [x ] Patient assessment, examination and intervention [x] Medication orders and management [x] Patient/Family updates as able [x] Care Coordination and Documentation. Other Coding Information This patient has a high probability of clinically significant, sudden or life threatening deterioration of the patient's (neurological/pulmonary/cardiac/renal/ID/endocrine) systems required my full, direct attention, the highest level of physician preparedness for urgent intervention and personal management. I managed/supervised life or organ supporting interventions that required frequent physician assessment. I devoted my full attention in the ICU to the direct care of this patient for the period of time indicated above. Time I spent with family or surrogate(s) is included only if the patient was incapable of providing necessary information or participating in decision making. This time includes the following services provided: Telemetry review Nonmechanical ventilation Hemodynamic interpretation, assessment and management Review and interpretation of CXR Review and interpretation of lab values Review and interpretation of microbiologic data and culture results Review of medications and administration Review and interpretation of Nutrition requirements and management Discussion of management with other consultants and services Clinical update to family members Diagnoses Respiratory failure J96.90 Acute kidney injury superimposed on CKD N17.9; N18.9 Accelerated hypertension I10 Systolic congestive heart failure I50.20 Acute metabolic encephalopathy G93.41 Fungemia B49 Severe hypothyroidism E03.9 Uremia N19 NSTEMI (non-ST elevated myocardial infarction) I21.4 Anemia D64.9 Other emphysema J43.8 COPD type: emphysema Emphysema type: other Chronic hyponatremia E87.1 Lactic acidosis E87.20 Metabolic acidosis E87.20 Benign hypertension I10
--- NOTE | 2024-10-15 16:12 | W.ED.SOB ---
HPI - SOB/Dyspnea General: Chief Complaint: Shortness of Breath/Dyspnea Stated Complaint: cp, sob Time Seen by Provider: 10/05/24 20:16 History of Present Illness: HPI Narrative: Called to bedside for emergent intubation. Patient was receiving dialysis. She was extubated yesterday. Was back into respiratory failure. Related Data Home Medications ?Medication ?Instructions ?Recorded ?Confirmed aspirin 81 mg tablet,delayed 81 mg PO QAM 05/06/20 10/06/24 release clopidogrel 75 mg tablet 75 mg PO QAM 05/06/20 10/06/24 lovastatin 40 mg tablet 40 mg PO QAM 05/06/20 10/06/24 bisacodyl 10 mg rectal suppository 10 mg DE DAILY PRN Constipation 04/18/22 10/06/24 levothyroxine 88 mcg tablet 88 mcg PO QAM 04/18/22 10/06/24 magnesium hydroxide 400 mg/5 mL 30 ml PO DAILY PRN Constipation 04/18/22 10/06/24 oral suspension (Milk of Magnesia) polyethylene glycol 3350 17 17 g PO DAILY PRN Constipation 04/18/22 10/06/24 gram/dose oral powder sennosides 8.6 mg tablet (senna) 8.6 mg PO DAILY PRN Constipation 04/18/22 10/06/24 hydroxyzine HCl 10 mg tablet 10 mg PO DAILY PRN Anxiety 08/16/22 10/06/24 amlodipine 2.5 mg tablet 2.5 mg PO BID 05/07/23 10/06/24 ferrous sulfate 325 mg (65 mg 325 mg PO QAM 05/07/23 10/06/24 iron) tablet losartan 50 mg tablet 50 mg PO BID 05/07/23 10/06/24 aluminum-mag hydroxide-simethicone 30 ml PO Q4H PRN Indigestion 06/12/23 10/06/24 200 mg-200 mg-20 mg/5 mL oral susp carboxymethylcellulose sodium 1 % 1 drp ophthalmic (eye) Q4H PRN Dry 06/12/23 10/06/24 eye drops (Artificial Tears Eyes (carboxymethylcellulose)) cyanocobalamin (vitamin B-12) 500 500 mcg PO QAM 06/12/23 10/06/24 mcg tablet naloxone 2 mg/2 mL syringe kit 2 mg IM Q3M PRN Opioid Overdose 06/12/23 10/06/24 buspirone 10 mg tablet 10 mg PO BID 09/25/23 10/06/24 acetaminophen 325 mg tablet 650 mg PO Q6H PRN Pain or temp 02/04/24 10/06/24 pantoprazole 40 mg tablet,delayed 40 mg PO DAILY 02/25/24 10/06/24 release Lactobacillus acidophilus 1,000 mmu cells PO QAM for 21 days 10/06/24 10/06/24 (Acidophilus capsule) escitalopram oxalate 20 mg tablet 20 mg PO DAILY 10/06/24 10/06/24 (Lexapro) ipratropium 0.5 mg-albuterol 3 mg 3 ml inhalation Q4H pneumonia 10/06/24 10/06/24 (2.5 mg base)/3 mL nebulization soln ipratropium 0.5 mg-albuterol 3 mg 3 ml inhalation QID 10/06/24 10/06/24 (2.5 mg base)/3 mL nebulization soln melatonin 5 mg tablet 5 mg PO BEDTIME 10/06/24 10/06/24 zinc sulfate 50 mg zinc (220 mg) 50 mg PO QAM 10/06/24 10/06/24 tablet Previous Rx's ?Medication ?Instructions ?Recorded hydralazine 100 mg tablet 100 mg PO TID #270 tabs 08/06/23 cefdinir 300 mg capsule 300 mg PO BID 7 days #14 caps 10/05/24 levofloxacin 750 mg tablet 750 mg PO Q48H 10 days #5 tabs 10/05/24 Allergies Allergy/AdvReac Type Severity Reaction Status Date / Time Penicillins Allergy ALGY-Hives Verified 10/05/24 20:36 tetracycline Allergy ALGY-Hives Verified 10/05/24 20:36 Review of Systems General: Reports: ROS unobtainable due to medical condition PFSH ED PFSH: Medical History Bicytopenia Peripheral arterial disease with history of revascularization Bradycardia Chronic hyponatremia Exertional dyspnea COPD exacerbation Orthostatic hypotension Syncope COPD (chronic obstructive pulmonary disease) Hx of type 2 diabetes mellitus Peripheral vascular disease Hx of chest pain History of hypertension F[place] falls Hx of hyperlipidemia Chronic back pain Postmenopausal Impaired physical mobility Hx of renal calculi Smoker Chronic kidney disease (CKD) Surgical History Hx of tubal ligation Family History Grandmother Clotting disorder Brother Cancer Diabetes Stroke Son Chronic kidney disease (CKD) Mother Diabetes Father Stroke Denies family history of CAD (coronary artery disease) Dementia Suicide Anesthesia complication Bleeding disorder Lung disease Social History Smoking and tobacco/nicotine status: current some day tobacco/nicotine user Alcohol intake: never Substance/Drug Use: never Physical Exam Narrative: EXAM NARRATIVE: General: Patient appears ill and in distress on BiPAP Skin: warm and dry Head: Normocephalic Neck: Trachea midline Eye: Extraocular movements are intact. Ears, nose, mouth and throat: Dry oral mucosa Respiratory: Patient is on a BiPAP tachypneic with some increased work of breathing. Musculoskeletal: No obvious deformities Gastrointestinal: Abdomen does not appear distended Neurological: Patient is awake but minimally responsive. Psychiatric: Unable to assess Course Vital Signs: Vital signs: Vital Signs Temperature 97.9 F 10/15/24 12:45 Pulse Rate 87 10/15/24 15:28 Respiratory Rate 21 H 10/15/24 14:00 Blood Pressure 177/70 10/15/24 12:45 Pulse Oximetry 90 10/15/24 15:28 Oxygen Delivery Me thod BiPAP 10/15/24 14:00 Oxygen Flow Rate 30 10/15/24 00:00 Fraction of Inspir ed Oxygen 100 10/15/24 15:28 MDM - SOB/Dyspnea Medical Decision Making Endotracheal intubation Time: See nursing documentation Confirmed: Patient, procedure, and site correct. Consent: , Emergent. Indication: Respiratory failure. Procedural sedation: Succinylcholine and etomidate . Monitoring: Cardiac, blood pressure, continuous pulse oximetry. Preparation: Pre oxygenated, Inline stabilization of cervical spine maintained, Ensured proper cuff inflation. Technique: Oral intubation: A 8 ET tube was inserted, glydescope, visualized cords and ett passing through cords. Met some resistance, but given the level of inflammation in her airway attempted to push through. Apparently there was a perforation of the distal trachea. Patient immediately developed subcutaneous emphysema. An attempt at tracheostomy was made but the perforation was too distal. At that point the hospitalist spoke with family who has decided to make her comfort measures and I ceased attempts. Lab Data 10/15/24 06:12 10/15/24 06:12 Labs/Radiology: Radiology Impressions Abdomen/Pelvis CT 10/07/24 07:47 IMPRESSION: 1. Large esophageal hernia. 2. Small bilateral pleural effusions with compressive atelectasis and infiltrates in the lung bases. 3. Bilateral renal atrophy with parenchymal scarring. No hydronephrosis. 4. Mcmillan catheter. 5. Rectosigmoid constipation. 6. Hepatomegaly. 7. No other acute findings. Chest CT 10/11/24 10:30 IMPRESSION: 1. Nasogastric tube in good position. 2. Endotracheal tube in good position. 3. New small bilateral pleural effusions, RIGHT greater than LEFT. 4. Improved pneumonia LEFT upper lobe. 5. Mild dependent changes along the pleural fissures. Mild hazy attenuation throughout both lungs may be due to fluid overload. 6. Very dense atherosclerotic calcification within the thoracic aorta and suprarenal abdominal aorta. 7. Soft tissue anasarca from fluid overload. 8. Large hiatal hernia. Head CT 10/11/24 10:30 IMPRESSION: 1. No acute intracranial hemorrhage or edema. 2. Severe bilateral cerebral and cerebellar atrophy with mild small vessel disease. 3. Chronic lacunar infarct LEFT caudate. 4. Patient is intubated. Chest X-Ray 10/15/24 06:00 IMPRESSION: Increasing bibasilar opacities, greatest in the left lower lobe. Laboratory Results WBC 14.10 10^3/uL (3.29-11.43) H 10/05/24 20:41 RBC 2.75 10^6/uL (3.85-5.65) L 10/05/24 20:41 Hgb 8.00 g/dL (11.27-16.99) L 10/05/24 20:41 Hct 25.3 % (36-47) L 10/05/24 20:41 MCV 92.0 fl (85-98) 10/05/24 20:41 MCH 29.1 pg (27-33) 10/05/24 20:41 MCHC 31.6 g/dL (30-55) 10/05/24 20:41 RDW 14.4 % (12.1-15.1) 10/05/24 20:41 Plt Count 208 10^3/cmm (157-399) 10/05/24 20:41 MPV 11.8 fL (7.4-10.4) H 10/05/24 20:41 Neut % (Auto) 91.1 % 10/05/24 20:41 Lymph % (Auto) 3.8 % 10/05/24 20:41 [place] % (Auto) 4.3 % 10/05/24 20:41 Eos % (Auto) 0.1 % 10/05/24 20:41 Baso % (Auto) 0.2 % 10/05/24 20:41 Neut # (Auto) 12.83 10^3/uL (1.8-7.7) H 10/05/24 20:41 Lymph # (Auto) 0.5 10^3/uL (0.8-4.8) L 10/05/24 20:41 [place] # (Auto) 0.6 10^3/uL (0.2-0.9) 10/05/24 20:41 Eos # (Auto) 0.0 10^3/uL (0.0-0.8) 10/05/24 20:41 Baso # (Auto) 0.0 10^3/uL (0.0-0.1) 10/05/24 20:41 Nucleated RBC % (auto) 0 % 10/05/24 20: Nucleated RBCs # 0.0 /100WBC 10/05/24 20:41 Sodium 129 mmol/L (136-145) L 10/05/24 20:41 Potassium 3.7 mmol/L (3.5-5.1) 10/05/24 20:41 Chloride 97 mmol/L (98-107) L 10/05/24 20:41 Carbon Dioxide 13 mmol/L (22-29) L 10/05/24 20:41 Anion Gap 22.7 (5-19) H 10/05/24 20:41 BUN 44 mg/dL (8-23) H 10/05/24 20:41 Creatinine 2.2 mg/dL (0.5-0.9) H 10/05/24 20:41 GFR Calculation Not Reportable 10/05/24 20: Glucose 280 mg/dL (65-115) H 10/05/24 20:41 Calculated Osmolality 289 mOsm/kg (285-295) 10/05/24 20:41 Lactic Acid 4.2 mmol/L (0.5-2.2) H* 10/05/24 20:41 Calcium 7.9 mg/dL (8.5-10.5) L 10/05/24 20:41 Total Bilirubin 0.2 mg/dL (0.15-1.2) 10/05/24 20:41 AST 18 U/L (0-32) 10/05/24 20:41 ALT 8 U/L (0-33) 10/05/24 20:41 Alkaline Phosphatase 87 U/L (35-105) 10/05/24 20:41 Troponin T Baseline 348 ng/L (0-10) H* 10/05/24 20:41 NT-Pro-B Natriuret Pep 08868 pg/mL (0-450) H 10/05/24 20:41 Total Protein 6.1 g/dL (6.6-8.7) L 10/05/24 20:41 Albumin 3.1 g/dL (3.5-5.2) L 10/05/24 20:41 Globulin 3.0 g/dL (1.3-4.6) 10/05/24 20:41 Hepatitis C Antibody Non-reactive (Nonreactive) 10/05/24 20:41 No radiology studies performed this visit Discharge Plan Discharge Patient Disposition: Admitted As Inpatient Admit Provider: Chaz Stein Clinical Impression: ST elevation myocardial infarction (STEMI) Condition: Stable Coding Level of Care Code ED [facility] [employer] Operator for [facility]
--- NOTE | 2024-10-15 16:14 | PC.NURSE ---
Addendum entered by Deidre Bennett RN 10/15/24 16:17: No heart tones noted, no spontaneous respirations noted. Time of verified. Original Note: Dr. Reyes notified of increased o2 demand, Dr. Reyes came to bedside order given to intubate. Dr Vizcaino came to bedside 100 mg succ 20 mg etomidate given per v.o. upon MD advanced ET tube large amount crepitis noted around throat unable to venilate patient. Dr. Ying attempted emergency Trach, Dr. Reyes spoke with family decision to go comfort care. Dr. Reyes gave order for comfort care meds and 1x IVP fentanyl. LESLIE called [phone], to call family.
--- NOTE | 2024-10-15 16:20 | PM.CCNAC ---
Critical Care Event Note Received a call from the loss taking care of the patient and respiratory therapist at 3:32 PM that patient saturation or dropping down to low 90s on 100% FiO2 BiPAP. Given the goals of care discussion with patient's son earlier today morning decision was made to put patient back on mechanical ventilator. Requested ER physician for intubation. Patient was sedated with etomidate and succinylcholine. During intubation patient suddenly developed extensive subcutaneous emphysema in the neck going into upper bilateral chest and had left fixed pupil with suspected possible tracheal rupture and vascular injury. Care was immediately discussed with patient's son/DPOA Mr. Maier over the phone regarding possible need for tracheostomy given the possible complication versus transitioning to comfort care. Mr. Maier states given Ms. Nicolas's multiple comorbidities, prolonged complicated hospitalization he and his brother were already deciding about hospice and would want us to initiate comfort care as of now and do not want tracheostomy. Tracheostomy was deferred. Care discussed in detail with patient's primary team. The high probability of a clinically significant, sudden or life threatening deterioration of the patient's [pulmonary] system(s) required my full and direct attention, intervention and personal management. The critical care time is as shown. This time is in addition to time spent performing any reported procedures but includes the following: [x] Data and vital sign review and interpretation [x] Patient assessment, examination and intervention [x] Documentation [x] Medication orders and management Critical Care Time Code activated: No Critical Care Time (min): 120 Coding Level of Care Code Critical Care Other Coding Information Prolonged care (total time indicated above or notated here) (Additional time for patient's respiratory failure, goals of care discussion, mechanical ventilation)
--- NOTE | 2024-10-15 17:36 | PC.NURSE ---
family came to bedside, wish to use [facility]. [facility] feed supervisor called [facility] not a candidate
--- NOTE | 2024-10-15 18:27 | PC.NURSE ---
out of facility with [facility]
--- NOTE | 2024-10-15 18:28 | PC.NURSE ---
no belongings to send with family
[2024-10-16 02:34] LABS: Heparin Induced Platelet AB NEGATIVE (NEGATIVE); Patient O.D 0.009
--- NOTE | 2024-10-18 13:55 | PM.DDS ---
Discharge Providers DDS Date of Admission: 10/05/24 22:18 Date Summary Completed: 10/18/24 Attending Provider at Admission: Chaz Stein M.D Time of : 16:17 Attending Provider at Discharge: Chaz Stein M.D Consults: Hospitalist Dr. Reyes Nephrology Dr. Schwab Primary Care Provider: Aakash Estrella MD Diagnoses Probable Cause of Respiratory failure Hospital Diagnoses (1) Fungemia: Details from hospital stay: IV micafungin given (2) Invasive fungal infection: Details from hospital stay: as stated above (3) NSTEMI (non-ST elevated myocardial infarction): Details from hospital stay: Post PCI for critical ostial LAD and left main. Appreciate cardiology recommendations. Treated with DAPT with aspirin, Plavix, statin, beta-koby with metoprolol 12.5 mg twice daily. (4) Unstable angina: Details from hospital stay: As stated above (5) Acute kidney injury superimposed on CKD: Details from hospital stay: Baseline creatinine around 1.5. Creatinine and uremia continued to worsen. Combination of ATN and RIRI. Associated with uremia, metabolic acidosis. Metabolic acidosis, uremia, hyponatremia resolving. Nephrology on board. Patient underwent temporary dialysis. (6) Metabolic acidosis: Details from hospital stay: as stated above (7) Lactic acidosis: Details from hospital stay: as stated ramiroboann marie (8) Acute metabolic encephalopathy: Details from hospital stay: Most likely in setting of acute renal failure leading to uremia. Also has hyponatremia. Reason for Visit Reason for Visit Chest pain/ Shortness of breath Brief History: Maria Isabel Ho is a 79 year old female alf resident. She was admitted on 10/05/24 with an AMI/ NSTEMI, UTI, and pneumonia. Summary Date and Time of Date of : 10/15/24 Time of : 16:17 Summary Summary: She was admitted on 10/05/24 with an AMI/ NSTEMI, UTI, and pneumonia. Patient was treated w/ abx and was taken to [facility] where she had 2 stents to LAD and 2 stents to the main coronary artery. Patient developed acute respiratory distress, was intubated and transferred to the ICU and started on pressors. She developed lactic acidosis and acute kidney injury. Post procedure, she was not responsive even off of her sedation. CT of the head was done that was negative for stroke or acute abnormalities. She eventually was able to be extubated. She underwent dialysis. During this, she developed respiratory failure with low O2 saturation, and the son made a decision to proceed with reintubation. During the intubation, patient suddenly developed extensive subcutaneous emphysema in the neck into the bilateral chest and had left fixed pupil with suspected possible tracheal rupture and vascular injury. It was discussed over the phone with patient's son the need for tracheostomy, and at that time decided to initiate comfort care. Patient shortly after verified by Dr. Reyes with no heart tones or spontaneous respirations. Additional Data Advance directives?: No (patient intubated unable to assess) Discharge Plan Discharge Patient Disposition: Condition: Stable Probable Cause of Probable cause of : Respiratory failure with hypoxia DS Attestations Time Spent in /Discharge Care*: other Quality - AMI: AMI present?: Yes Quality - Stroke: CVA present?: No Quality - VTE: VTE present?: No Coding Level of Care Code Acute Code for [facility] Diagnoses Fungemia B49 Invasive fungal infection B49 NSTEMI (non-ST elevated myocardial infarction) I21.4 Unstable angina I20.0 Acute kidney injury superimposed on CKD N17.9; N18.9 Metabolic acidosis E87.20 Lactic acidosis E87.20 Acute metabolic encephalopathy G93.41
[2024-10-19 11:15] LABS: ADAMTS 13 Activity 0.27 IU/mL (0.68-1.63); ADAMTS 13 Inhibitor <0.4 BEU (<0.4); ADAMTS 13 Inhibitor Yes Test Yes
[2024-10-21 03:26] LABS: Fibrinogen Degradation Product 10 mcg/mL (LESS THAN 5)
[2024-10-21 22:10] LABS: UFH High Dose, 100 IU/ML 30 % release; UFH Low Dose, 0.1 IU/ML 62 % release; UFH Low Dose, 0.5 IU/ML 69 % release; UFH SRA Result POSITIVE (NEGATIVE)
== END 2024-10-15 18:29 | disposition expired | DRG 853 ==
LOC: ER 21:15 → CCL 21:18 → ICU 22:19
PROVIDERS: Family Medicine; Hospitalist; Internal Medicine; Internal Medicine Nephrology; Student in an Organized Health Care Education/Training Program; Admitting Provider Internal Medicine; Emergency Provider Emergency Medicine; PCP Internal Medicine; Visit Provider Internal Medicine
PROC: 027035Z Dilation of Coronary Artery, One Artery with Two Drug-eluting Intraluminal Devices, Percutaneous Approach (ICD-10-PCS; principal; 2024-10-05 21:00)
PROC: 027035Z Dilation of Coronary Artery, One Artery with Two Drug-eluting Intraluminal Devices, Percutaneous Approach (ICD-10-PCS; 2024-10-05 21:00)
DX: A41.9 Sepsis, unspecified organism (principal); G93.41 Metabolic encephalopathy; I21.4 Non-ST elevation (NSTEMI) myocardial infarction; J81.0 Acute pulmonary edema; R65.21 Severe sepsis with septic shock; N17.0 Acute kidney failure with tubular necrosis; J18.9 Pneumonia, unspecified organism; J96.02 Acute respiratory failure with hypercapnia; J96.01 Acute respiratory failure with hypoxia; J95.72 Accidental puncture and laceration of a respiratory system organ or structure during other procedure; B49 Unspecified mycosis; I13.0 Hypertensive heart and chronic kidney disease with heart failure and stage 1 through stage 4 chronic kidney disease, or unspecified chronic kidney disease; I50.20 Unspecified systolic (congestive) heart failure; N18.4 Chronic kidney disease, stage 4 (severe); E87.20 Acidosis, unspecified; E87.1 Hypo-osmolality and hyponatremia; N39.0 Urinary tract infection, site not specified; J44.0 Chronic obstructive pulmonary disease with (acute) lower respiratory infection; Z51.5 Encounter for palliative care; Z66 Do not resuscitate; E11.51 Type 2 diabetes mellitus with diabetic peripheral angiopathy without gangrene; E78.5 Hyperlipidemia, unspecified; Z79.82 Long term (current) use of aspirin; Z79.02 Long term (current) use of antithrombotics/antiplatelets; Z88.0 Allergy status to penicillin; G89.29 Other chronic pain; M54.9 Dorsalgia, unspecified; Z78.0 Asymptomatic menopausal state; Z85.528 Personal history of other malignant neoplasm of kidney; F17.200 Nicotine dependence, unspecified, uncomplicated; D63.1 Anemia in chronic kidney disease; T81.82XA Emphysema (subcutaneous) resulting from a procedure, initial encounter; I08.1 Rheumatic disorders of both mitral and tricuspid valves; I25.5 Ischemic cardiomyopathy; E86.0 Dehydration; I25.10 Atherosclerotic heart disease of native coronary artery without angina pectoris; E11.22 Type 2 diabetes mellitus with diabetic chronic kidney disease; B96.20 Unspecified Escherichia coli [E. coli] as the cause of diseases classified elsewhere
CPT/HCPCS: 36415; 36416; 36430; 36573; 36592; 36600; 70450; 71045; 71250; 74176; 80048; 80051; 80053; 80061; 80202; 81001; 82044; 82140; 82306; 82310; 82330; 82436; 82533; 82550; 82570; 82607; 82728; 82746; 82803; 82805; 82962; 82977; 83010; 83036; 83520; 83540; 83550; 83605; 83615; 83735; 83880; 83970; 84100; 84133; 84145; 84156; 84300; 84439; 84443; 84450; 84460; 84484; 84550; 85014; 85018; 85025; 85045; 85335; 85347; 85362; 85378; 85384; 85397; 85610; 85730; 86036; 86038; 86160; 86225; 86403; 86706; 86803; 86850; 86900; 86920; 87040; 87070; 87077; 87086; 87150; 87186; 87205; 87340; 87486; 87581; 87633; 90935; 92978; 93005; 93306; 93454; 94002; 94003; 94640; 94660; 94669; 94799; 96365; 96366; 96372; 96374; 96375; 96376; 97110; 97163; 99152; 99153; 99285; A4570; C1725; C1751; C1753; C1760; C1769; C1874; C1887; C1894; C9606; G0269; J0330; J0360; J0456; J0692; J0696; J1450; J1644; J1756; J1815; J1938; J2020; J2185; J2248; J2250; J2470; J2704; J2919; J3010; J3370; J3475; J3480; J3490; J7030; J7040; J7042; J7050; J7070; J7626; J9999; P9016; P9046; Q3014; Q9967